=== PATIENT | female | born 1935 | race Caucasian/White ===

== ENCOUNTER → 2017-06-19 11:00 | Outpatient (CLI) | payer MEDICARE, OTHER, SELFPAY ==
--- NOTE | 2017-06-19 11:04 | HPBI_ITS ---
MAMMOGRAPHY - BILATERAL SCREENING REASON FOR EXAM: Female, 81 years old. Routine annual screening examination. PERTINENT HISTORY: Non-contributory. History of lung cancer. TECHNIQUE: Digital bilateral breast patti (3D mammographic acquisition) in the CC and MLO projections. 2-D mediolateral oblique (MLO) and craniocaudad (CC) views of both breasts were obtained. CAD: Full Field Digital Mammography with Computer Added Detection was performed. COMPARISON: Comparison is made with prior study dated October 10, 2016 and April 21, 2015. FINDINGS: Breast Composition: The breasts are almost entirely fatty. There are no dominant masses or suspicious calcifications. There is a stable 4.6 mm x 5.3 mm well-defined nodular density in the central lateral portion of the left breast. A central fatty notch is seen within it suggestive of a small lymph node. No other significant abnormalities are identified. There has been no significant change since the prior study. HPBI/SCREENING MAMM (CAD), BILAT IMPRESSION: Stable bilateral screening mammogram. Yearly follow-up mammogram recommended. (A) ASSESSMENT CATEGORY: BIRADS Category 2: Benign. A letter regarding these results will be sent to the patient by the facility within 30 days. Approximately 10% of breast cancers are not detected by mammography. A normal mammogram should not delay biopsy of a clinically suspicious abnormality. [id number] Electronically Signed: Blaine Victor MD at 13:11 EST Tel [phone], Service support ,
== END ==
PROVIDERS: Family Provider Internal Medicine; PCP Internal Medicine; Visit Provider Internal Medicine
DX: Z12.31 Encounter for screening mammogram for malignant neoplasm of breast (principal)
CPT/HCPCS: 77063; 77067

== ENCOUNTER → 2017-11-16 12:14 | Outpatient (CLI) | payer MEDICARE, OTHER, SELFPAY ==
--- NOTE | 2017-11-16 13:00 | MRI_ITS ---
STUDY: MRI LOWER EXTREMITY RIGHT THIGH WITH AND WITHOUT CONTRAST REASON FOR EXAM: Female, 82 years old. UPPER ANTERIOR LATERAL LEG MASS, AREA TOP AND BOTTOM...MARKED BY BEADS TECHNIQUE: Standardized fat and water weighted pulse sequences were obtained in all 3 orthogonal planes, post contrast administration. 8 ml of Gadavist contrast material was administered intravenously for the contrast portion of the examination. COMPARISON: None. FINDINGS: There is motion artifact. Markers were placed at the lateral hip and anterior upper thigh. No abnormality is seen between the markers. There is joint space narrowing of the right hip joint consistent with osteoarthritis. There is a 4.4 cm well-circumscribed structure in the distal right femoral shaft which demonstrates STIR hypointensity and no definite enhancement. It may represent red marrow. No greater trochanteric or iliopsoas bursitis is seen. The visualized gluteus medius and minimus, iliopsoas and hamstring tendons are intact. No muscle edema or enhancement is seen. No mass or fluid collection is seen. No soft tissue edema is seen. There is colonic diverticulosis. MRI/Lower Ext No Joint W/WO Cont IMPRESSION: No mass is demonstrated. No abnormality is seen between the markers. 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 There is a benign-appearing structure in the distal right femoral shaft. Electronically Signed: Winter Pérez MD at 14:58 EDT , Service support ,
--- NOTE | 2017-11-16 14:00 | CDU_ITS ---
Reason For Study: CAROTID STENOSIS Rt. Velocities/BP Lt. Velocities/BP Prox CCA 79/16 cm/sec. Prox CCA 76/18 cm/sec. Mid CCA 64/16 cm/sec. Mid CCA 70/22 cm/sec. Dist CCA 53/18 cm/sec. Dist CCA 72/21 cm/sec. Prox ICA 73/28 cm/sec. Prox ICA 57/24 cm/sec. Mid ICA 74/26 cm/sec. Mid ICA 82/29 cm/sec. Dist ICA 84/36 cm/sec. Dist ICA 77/27 cm/sec. Rt. ICA/CCA = 1.3. Lt. ICA/CCA = 1.2. Prox ECA 61/11 cm/sec. Prox ECA 79/12 cm/sec. Rt. Vert. 36/8 cm/sec. Lt. Vert. 47/14 cm/sec. Right Extracranial There is intimal thickening but no significant atherosclerotic plaque noted in the right common carotid artery. There is heterogeneous, irregular atherosclerotic plaque noted in the right internal carotid artery. There is heterogeneous, irregular atherosclerotic plaque noted in the right external carotid artery. Antegrade flow is noted in the right vertebral artery. Left Extracranial There is intimal thickening but no significant atherosclerotic plaque noted in the left common carotid artery. The left internal carotid artery is not well visualized. There is heterogeneous, irregular atherosclerotic plaque noted in the left external carotid artery. Antegrade flow is noted in the left vertebral artery. Procedure Carotid Duplex [id number]. Exam performed in department. Interpretation Summary Mild (<50%) stenosis right extracranial internal carotid. Mild (<50%) stenosis left extracranial internal carotid. Flow within the vertebral arteries is antegrade bilaterally. Ordering Physician: Meli Gómez Referring Physician: Meli Gómez Performed By: Judi Portillo, RDCS, RVT
== END ==
PROVIDERS: Family Provider Internal Medicine; PCP Internal Medicine; Visit Provider Internal Medicine
DX: R22.41 Localized swelling, mass and lump, right lower limb (principal); I65.23 Occlusion and stenosis of bilateral carotid arteries
CPT/HCPCS: 73720; 93880; A9585

== ENCOUNTER 2018-03-13 09:14 | Emergency (ER) | payer MEDICARE, OTHER, SELFPAY ==
[2018-03-13 09:15] VITALS: BP 161/111; PULSE 71; RESP 18; TEMP 36.9; O2SAT 93; BMI 29.8
--- NOTE | 2018-03-13 09:34 | CT_ITS ---
STUDY: CT CERVICAL SPINE WITHOUT CONTRAST REASON FOR EXAM: Female, 82 years old. Head trauma due to a fall. RADIATION DOSAGE (If Supplied By Facility): CTDIvol = ( 25.57 ) mGy, DLP = ( 576.30 ) mGycm TECHNIQUE: High resolution transaxial imaging was performed without contrast material. Sagittal and coronal images were reconstructed. Individualized dose optimization techniques were used for this CT. COMPARISON: None FINDINGS: Scalp hematoma overlying the right posterior parietal occipital bone. Normal craniovertebral junction. There are degenerative changes of the anterior atlantoaxial articulation. Normal odontoid process. There is straightening of the normal cervical lordosis. Normal vertebral bodies and posterior osseous elements. C2-3: Minimal anterior listhesis of C2 on C3. Facet joint osteoarthritis and hypertrophy with bilateral neural foraminal stenosis. C3-4: Minimal anterior listhesis of C3 on C4. Facet joint osteoarthritis and hypertrophy with uncovertebral arthrosis. Bilateral neural foraminal stenosis worse on the left side. C4-5: Moderate degree of disc space narrowing. Anterior spondylosis. Uncovertebral arthrosis. Bilateral neural foraminal stenosis moderate degree worse on the left side. C5-6: Marked degree of disc space narrowing. Spondylosis. Uncovertebral arthrosis. Moderate degree of bilateral neural foraminal stenosis. C6-7: Moderate degree of disc space narrowing. Spondylosis. Uncovertebral arthrosis. Bilateral neural foraminal stenosis. Atherosclerotic plaque formation of the carotid bifurcations. Scarring in the right lung apex. CT/Spine Cervical without Contras IMPRESSION: Multilevel degenerative changes, as described above. Electronically Signed: Blaine Victor MD at 10:19 EST Tel [phone], Service support ,
--- NOTE | 2018-03-13 09:34 | RAD_ITS ---
STUDY: X-RAY - LEFT SHOULDER REASON FOR EXAM: Female, 82 years old. Pain following a fall. TECHNIQUE: 2 view(s) of the shoulder. COMPARISON: None. FINDINGS: Normal glenohumeral articulation. Normal acromioclavicular joint. Normal acromion. Normal humeral head and visualized proximal humerus. The soft tissue structures are unremarkable. Normal visualized pulmonary apex. RAD/Shoulder min 2 Views IMPRESSION: Normal x-ray examination of the shoulder. Electronically Signed: Blaine Victor MD at 10:46 EST Tel [phone], Service support ,
--- NOTE | 2018-03-13 09:34 | CT_ITS ---
STUDY: CT BRAIN WITHOUT CONTRAST REASON FOR EXAM: Female, 82 years old. Head injury due to a fall. RADIATION DOSAGE (If Supplied By Facility): CTDIvol = ( 44.99 ) mGy, DLP = ( 779.24 ) mGycm TECHNIQUE: Transaxial CT imaging of the brain was performed without administration of intravenous contrast material. Individualized dose optimization techniques were used for this CT. COMPARISON: None. FINDINGS: Small sclerotic hematoma overlying the posterior left parietal occipital bones. Normal calvarium. There is mild cerebral atrophy with widening of the extra-axial spaces and ventricular dilatation. There are areas of decreased attenuation within the white matter tracts of the supratentorial brain, consistent with microvascular disease changes. 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 Normal basal ganglia and thalami. Normal brainstem. Normal cerebellum. There is no intracranial hemorrhage. There are no findings of an acute ischemic infarction. Atherosclerotic calcification of the vertebral arteries and cavernous portions of the internal carotid arteries bilaterally. Normal visualized paranasal sinuses. CT/Brain/Head without Contrast IMPRESSION: Chronic involutional changes of the brain. Scalp hematoma overlying the posterior right parietal occipital bones. Electronically Signed: Blaine Victor MD at 10:15 EST Tel [phone], Service support ,
[2018-03-13 10:29] VITALS: BP 172/72; PULSE 67; RESP 16; O2SAT 92
--- NOTE | 2018-03-13 11:53 | ED.DCSUM_ITS ---
- ER Visit Summary Date of Service: 03/13/18 Chief Complaint: [Fall and head injury] History of Present Illness: The patient is a 82 F [presents to the emergency department after sustaining a fall this morning. Patient states she went out to the mailbox and she slipped on the ice falling backwards and striking her head on the ground. Patient is not sure if she passed out but the neighbor who saw her fall apparently and noted that she may have been unconscious however by the time that he got to where she was awake. Patient was able to walk into the house. Patient's son brings her in for evaluation. Patient is not on any blood thinners. Patient does have a history of hypertension and COPD. Patient has a history of lung cancer and hypothyroidism as well as history of chronic renal failure. Patient does complain of some pain in her neck and states that initially her whole body felt numb and tingly initially. Patient also having some discomfort in her left shoulder.] Physical Examination: [HEENT-PERRLA, EOMI. Cranial nerves II through XII grossly intact. TMs clear. Mucous membranes moist. No adenopathy. Mild diffuse tenderness over the C-spine. He has a contusion to the posterior occiput with hematoma noted. There is contusion to the skin but no distinct laceration. No bony step-offs. Cardiovascular-regular rate and rhythm without murmur or ectopy Lungs-clear to auscultation, chest wall stable without crepitus or subcu emphysema Abdomen-normoactive bowel sounds, soft, nontender, no rebound or rigidity, no peritoneal signs. Extremities-intact ?4, normal range of motion, normal pulses, atraumatic]. Left shoulder-patient has some tenderness diffusely about the glenohumeral joint. There is no deformity. She is nervously intact distally. Test Results: [CT scan of the brain without contrast showed chronic involutional changes and a hematoma to the scalp. CT C-spine showed chronic changes however no fractures. X-rays of the left shoulder showed no fractures.] Emergency Department Course and Treatment: [Was given Adacel in the emergency department] Treatment Plan: [Patient had a wound to the scalp was cleansed] Disposition: [Discharged home stable condition] Impression: [Closed head injury Cervical strain Left shoulder strain] This note was generated with [employer]ation software. It may contain incorrect words, spelling, and punctuation that were not noted in review of the chart prior to signing ED Disposition - Plan for ED Patient: Chief Complaint: Fall Referrals: Meli Gómez DO [Primary Care Provider] -
--- NOTE | 2018-03-13 11:53 | ED.DEP ---
ED Disposition - Plan for ED Patient: Chief Complaint: Fall Instructions: ED Mechanical Fall, ED Head Injury Closed, ED Sprain Strain Neck, ED Contusion Upper Ext, ED Contusion Shoulder Prescriptions: Hydrocodone Bitart/Apap 5-325 [Carbon 5MG-325MG] 1 tab PO Q4H PRN PRN 2 Days #10 tab PRN Reason: Pain Referrals: Fast,Meli, DO [Primary Care Provider] - 3-5 Days
[2018-03-13 12:06] VITALS: BP 152/98; PULSE 82; RESP 16; O2SAT 91
--- OUTSIDE RECORDS SUMMARY | 2018-04-25 02:12 | XMS RPT_ITS | Continuity of Care Document ---
:1935 Author Organization [facility] Address [address] [facility] [facility] [address] [place] [address] Phone Care Team Providers Name Role Phone Meli Gómez DO Unavailable Jamie Cruz Unavailable Dr. Cesario Tavares Unavailable Ben Uriarte Unavailable Jesus Isabel Kelly Unavailable Francoise Regalado Unavailable Unavailable Alisson Espinal Unavailable Unavailable Izzy Meredith LPN Unavailable Unavailable BOBBY Perez Unavailable Unavailable Unavailable Unavailable Problems Name Dates Details Abnormal blood chemistry (R79.9, 790.6) Status: Active Abnormal blood chemistry (R79.9, 790.6) Status: Active Abnormal chest x-ray (R93.89, 793.2) Status: Active Abnormal urine (R82.90, 791.9) Status: Active Abortions/Miscarriages Comments: Status: Active Acquired hypothyroidism (E03.9, 244.9) Comments: chronic stable-continue present regimen Status: Active Actinic keratosis (L57.0, 702.0) Status: Active Actinic keratosis (Renamed from AK (actinic keratosis)) (L57.0, 702.0) Comments: freeze on left chest and right forearm 40 sec without difficulty Status: Active Aortic valve disorder (I35.9, 424.1) Comments: she not having escalating sx which we discussed get echo in spring Status: Active Arthritis (M19.90, 716.90) Status: Active Bilateral carotid artery stenosis (I65.23, 433.10) Comments: risk factor modification Status: Active bilateral cataract surgery 2009 Status: Active BMI 30.0-30.9,adult (Z68.30, V85.30) Status: Active BMI 30.0-30.9,adult (Z68.30, V85.30) Status: Active Chest pain on breathing (R07.1, 786.52) Status: Active Chronic obstructive pulmonary disease, unspecified COPD type (J44.9, 496) Comments: chronic stable-continue present regimen Status: Active Colon Polyp (K63.5, 211.3) Status: Active COPD with acute exacerbation (Renamed from Acute exacerbation of chronic obstructive airways disease) (J44.1, 491.21) Comments: improving Status: Active COPD with acute exacerbation (Renamed from Acute exacerbation of chronic obstructive airways disease) (J44.1, 491.21) Status: Active Cramps, extremity (R25.2, 729.82) Status: Active D-dimer, elevated (R79.89, 790.92) Status: Active Deliveries (Parity) Comments: 5 Status: Active Disorder of thyroid, unspecified (E07.9, 246.9) Status: Active Eczema (L30.9, 692.9) Comments: cortisone Status: Active Edema (R60.9, 782.3) Status: Active Encounter for annual general medical examination with abnormal findings in adult (Z00.01, V70.0) Status: Active Encounter for annual general medical examination with abnormal findings in adult (Z00.01, V70.0) Status: Active Encounter for Medicare annual wellness exam (Z00.00, V70.0) Status: Active Encounter for screening mammogram for breast cancer (Renamed from Encounter for screening mammogram for malignant neoplasm of breast) (Z12.31, V76.12) Comments: andry Status: Active Encounter for screening mammogram for breast cancer (Renamed from Encounter for screening mammogram for malignant neoplasm of breast) (Z12.31, V76.12) Status: Active Epistaxis (R04.0, 784.7) Comments: some irritaiton- nasal saline - if not better then she will see ent- aspirin qod Status: Active Fall with significant injury (W19.XXXA, E888.9) Status: Active Fatigue (R53.83, 780.79) Comments: we talked about her considering using the o2 that anthony said she need- certainly can play a role in her energy and has senior care heart and lung negative consequences Status: Active Former smoker (Z87.891, V15.82) Status: Active Gastroesophageal reflux disease without esophagitis (K21.9, 530.81) Comments: chronic stable-continue present regimen Status: Active History of total left knee replacement (Z96.652, V43.65) Status: Active Hypertension, benign (I10, 401.1) Status: Active Impaired Fasting Glucose (R73.01, 790.21) Comments: watch the carbs increase activity Status: Active Incisional infection (T81.4XXA, 998.59) Comments: better Status: Active Incisional infection, subsequent encounter (T81.4XXD, V58.89) Comments: better Status: Active irritated skin tags Status: Active Left arm pain (M79.602, 729.5) Status: Active Left shoulder pain (M25.512, 719.41) Comments: will get xray Status: Active Low back pain (M54.5, 724.2) Status: Active Lung nodule (R91.1, 793.11) Comments: has follwoup andry Status: Active Macular degeneration (H35.30, 362.50) Comments: seeing eye doc Status: Active Mass of soft tissue of right lower extremity (R22.41, 782.2) Comments: mri neg - saw ortho and pain gone- monitor Status: Active [facility] Status: Active [facility] Status: Active Mitral regurgitation (I34.0, 424.0) Status: Active Neck pain, acute (M54.2, 723.1) Comments: had ct of neck - bad djd/ddd is getting better may need pt we discusssed Status: Active Need for prophylactic vaccination and inoculation against influenza (Z23, V04.81) Status: Active Need for prophylactic vaccination and inoculation against influenza (Renamed from Need for immunization against influenza) (Z23, V04.81) Status: Active Need for prophylactic vaccination and inoculation against influenza (Renamed from Need for immunization against influenza) (Z23, V04.81) Status: Active Need for vaccination against Streptococcus pneumoniae (Z23, V03.82) Status: Active Neoplasm of uncertain behavior of skin (D48.5, 238.2) Comments: left thigh looks red based with scale conscern precancer vs squamous she said had lesion on chest looked llike this then went away so she wants to monitor couple weeks if not better needs to see dermsooner than later Status: Active Night sweats (R61, 780.8) Comments: improving Status: Active Nonsmoker (Z78.9, V49.89) Status: Active Nonsmoker (Z78.9, V49.89) Status: Active NYSTAGMUS NOS (379.50) Comments: hasnt had more Status: Active 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, 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) Comments: old on ct she is on aspirin- risk factor modificaiton Status: Active Osteoporosis (M81.0, 733.00) Status: Active Other fatigue (R53.83, 780.79) Comments: she sleeping ok she wake up rested but not been [id number] so she going to try to get back on track and see if helps Status: Active Other hyperlipidemia (E78.49, 272.4) Comments: she at the max dose she can tolerate Status: Active Pneumococcal vaccination given (Z23, V06.6) Status: Active Postmenopausal (Renamed from Postmenopausal status) (Z78.0, V49.81) Status: Active Pregnancies () Comments: 6 Status: Active Pre-operative examination (Z01.818, V72.84) Status: Active PVD (peripheral vascular disease) (I73.9, 443.9) Comments: do nadeem Status: Active screening Status: Active Shortness of breath (R06.02, 786.05) Comments: get ddimer Status: Active Sleep disorder (G47.9, 780.50) Status: Active SOB (shortness of breath) on exertion (R06.02, 786.05) 11-Jul-2011 Comments: improving Status: Active Unspecified Diagnosis Status: Active Unspecified hearing loss, unspecified ear (H91.90, 389.9) Status: Active Vaginal atrophy (N95.2, 627.3) Status: Active Vaginal discharge (N89.8, 623.5) Comments: has used monistat without relief, will try po antifungal Status: Active Vaginal discharge (N89.8, 623.5) Status: Active Well woman exam (Z01.419, V72.31) Status: Active Yeast infection (B37.9, 112.9) Status: Active Medications Name Dates Details ASPIRIN LOW DOSE, 81MG (Oral Tablet) for 0 days Refills: 0 Ordered:02-Mar-2009 Amanda Espinal Breo Ellipta 200-25 MCG/INH Inhalation Aerosol Powder Breath Activated 1 (one) Aero Pow Br Act Aero Pow Br Act daily for 90 days Quantity: 3 {Inhaler} Refills: 3 Ordered:26-Apr-2017 Fast DO Meli AFast DO, Meli A Start : 26-Apr-2017 Active CeleBREX 200 MG Oral Capsule 1 (one) Capsule daily for 90 days Quantity: 90 {Capsule} Refills: 3 Ordered:26-Apr-2017 DO Meli AFast DO, Meli A Start : 26-Apr-2017 Active CENTRUM SILVER (Oral Tablet) for 0 days Refills: 0 Ordered:02-Mar-2009 Amanda Espinal Cozaar 50 MG Oral Tablet 1 (one) Tablet q am and 1/2 tab in evening for 90 days Quantity: 180 {Tablet} Refills: 3 Ordered:26-Apr-2017 DO Meli AFast DO, Meli A Start : 26-Apr-2017 Active Comments:this is the correct dose DilTIAZem HCl ER Coated Beads 360 MG Oral Tablet Extended Release 24 Hour 1 (one) Tablet Tablet qd for 0 days Quantity: 90 {Tablet} Refills: 3 Ordered:26-Apr-2017 Fast DO, Meli AFast DO, Meli A Start : 26-Apr-2017 Active HydroCHLOROthiazide 25 MG Oral Tablet 1 Tablet QD for 90 days Quantity: 90 {Tablet} Refills: 3 Ordered:26-Apr-2017 Fast DO, Meli AFast DO, Meli A Start : 26-Apr-2017 Active Incruse Ellipta 62.5 MCG/INH Inhalation Aerosol Powder Breath Activated 1 (one) Aero Pow Br Act daily for 90 days Quantity: 3 {Inhaler} Refills: 3 Ordered:26-Apr-2017 Meli TREJOradha Meli A Start : 26-Apr-2017 Active Levothyroxine Sodium 112 MCG Oral Tablet 1 (one) Tablet daily for 90 days Quantity: 102 {Tablet} Refills: 3 Ordered:26-Apr-2017 Meli TREJOradha , Meli A Start : 26-Apr-2017 Active Comments:2 on monday Sterling 5-325 MG Oral Tablet 1 (one) Tablet q 6hours prn for 0 days Quantity: 28 {Tablet} Refills: 0 Ordered:16-Mar-2018 Meli TREJOradha Meli A Start : 16-Mar-2018 Active Omeprazole 20 MG Oral Capsule Delayed Release [address] QD for 90 days Quantity: 90 {Capsule} Refills: 3 Ordered:26-Apr-2017 Meli TREJOradha Meli A Start : 26-Apr-2017 Active Potassium Chloride Eulalia ER 20 MEQ Oral Tablet Extended Release 2 (two) Tablet ER bid for 90 days Quantity: 360 {Tablet} Refills: 3 Ordered:26-Apr-2017 Meli TREJOradha LOMELI Meli A Start : 26-Apr-2017 Active PredniSONE 10 MG Oral Tablet 1 (one) Tablet uad for 0 days Quantity: 18 {Tablet} Refills: 0 Ordered:16-Mar-2018 Francoise Regalado Start : 16-Mar-2018 Active Comments:3 pills x 3 days2 pills X 3 days 1 pill x 3 days with food in am PreserVision AREDS 2 Oral Capsule 1 cap bid Active ProAir HFA 108 (90 Base) MCG/ACT Inhalation Aerosol Solution 2 (two) Aerosol Soln qid, prn for 90 days Quantity: 3 {Box} Refills: 3 Ordered:26-Apr-2017 Meli TREJOradha Meli A Start : 26-Apr-2017 Active Rosuvastatin Calcium 5 MG Oral Tablet 1 (one) Tablet qd in evening for 0 days Quantity: 30 {Tablet} Refills: 3 Ordered:05-Dec-2017 Meli TREJOradha Meli A Start : 05-Dec-2017 Active Rosuvastatin Calcium 5 MG Oral Tablet 1 (one) Tablet qd in evening for 90 days Quantity: 90 {Tablet} Refills: 3 Ordered:05-Dec-2017 Meli LOMELI DO, Debra A Start : 05-Dec-2017 Active TraZODone HCl 50 MG Oral Tablet 1 1/2 -2 Tablet q hs for 90 days Quantity: 180 {Tablet} Refills: 3 Ordered:26-Apr-2017 Meli Gómez DO, DO, Debra A Start : 26-Apr-2017 Active CLARITIN-D 24 HOUR, 10-240MG (Oral Tablet Extended Release 24 Hour) 1 Tablet ER 24HR daily for 4 days Refills: 0 Ordered:25-Apr-2012 Ginnystephanie RAJINDERLilian Start : 08-Feb-2012 End : 12-Feb-2012 Inactive CORRECTOL, 5MG (Oral Tablet Delayed Release) for 0 days Refills: 0 Ordered:16-Sep-2011 Alisson Espinal End : 16-Sep-2011 Inactive Diflucan 150 MG Oral Tablet 1 (one) Tablet daily for 7 days Quantity: 7 {Tablet} Refills: 0 Ordered:04-Feb-2016 Meli Gómez DO, DO, Debra A Start : 04-Feb-2016 End : 11-Feb-2016 Inactive Eliquis 2.5 MG Oral Tablet 1 (one) Tablet daily for 30 days Quantity: 30 {Tablet} Refills: 0 Ordered:04-Dec-2015 Meli Gómez DO, DO, Debra A Start : 23-Oct-2015 End : 22-Nov-2015 Inactive Comments:Following surgery for 1 month HYDROCORTISONE VALERATE, 0.2% (External Cream) 1 (one) Cream Cream apply qd for 0 days Quantity: 60 {Gram} Refills: 1 Ordered:06-Aug-2014 Alisson Espinal Start : 31-Mar-2014 End : 06-Aug-2014 Inactive LEVAQUIN, 500MG (Oral Tablet) 1 Tablet qd for 0 days Quantity: 7 {Tablet} Refills: 0 Ordered:16-Sep-2011 Alisson Espinal Start : 22-Aug-2011 End : 16-Sep-2011 Inactive MIRALAX (Oral Powder) 1 scoop prn for 0 days Refills: 0 Ordered:22-Feb-2010 Alisson Espinal End : 22-Feb-2010 Inactive NEURONTIN, 100MG (Oral Capsule) 2 caps tid for 0 days Refills: 0 Ordered:22-Feb-2010 Alisson Espinal End : 22-Feb-2010 Inactive SENNA S, 8.6-50MG (Oral Tablet) 1 tab bid (8.6-50 MG) Inactive SIMVASTATIN, 10MG (Oral Tablet) 1 Tablet QD for 90 days Quantity: 90 {Tablet} Refills: 3 Ordered:05-Aug-2013 Candace Mahan LPN Start : 24-Jul-2013 End : 05-Aug-2013 Inactive SYMBICORT, 160-4.5MCG/ACT (Inhalation Aerosol) 2 (two) Aerosol bid for 0 days Quantity: 1 {Aerosol} Refills: 3 Ordered:01-Nov-2012 Izzy Meredith LPN Start : 24-Sep-2012 End : 01-Nov-2012 Inactive Terbinafine HCl 1 % External Cream 1 (one) Application bid for 21 days Quantity: 1 {Tube} Refills: 0 Ordered:03-Apr-2017 Robert CALVILLOLilian Start : 03-Apr-2017 End : 24-Apr-2017 Inactive TYLENOL ARTHRITIS PAIN, 650MG (Oral Tablet Extended Release) for 0 days Refills: 0 Ordered:16-Sep-2011 Alisson Espinal End : 16-Sep-2011 Inactive ZyrTEC Allergy 10 MG Oral Tablet 1 (one) Tablet qd prn for 30 days Quantity: 30 {Tablet} Refills: 0 Ordered:20-Jan-2016 Fast DO, Meli AFast DO, Meli A Start : 04-Dec-2015 End : 03-Jan-2016 Inactive ADVAIR DISKUS, 250-50MCG/DOSE (Inhalation Aerosol Powder Breath Activated) 1puff Misc BID for 90 days Quantity: 3 {Inhaler} Refills: 3 Ordered:19-Sep-2014 Alisson Espinal Start : 07-Oct-2013 End : 19-Sep-2014 Discontinued Comments:inhalers CHOLESTOFF COMPLETE, 300-100MG (Oral Capsule) 1 cap bid (300-100 MG) End : 07-Jun-2016 Discontinued DILTIAZEM CD, 240MG (PO Cap SR 24HR) 1 QD for 0 days Refills: 0 Ordered:11-Aug-2008 Alisson Espinal End : 21-Aug-2009 Discontinued Comments:This order discontinued per [employer]. DILTIAZEM HCL COATED BEADS, 360MG (Oral Capsule Extended Release 24 Hour) 1 (one) Capsule ER 24HR qd for 0 days Quantity: 90 {Capsule_ER_24HR} Refills: 3 Ordered:11-Aug-2008 Alisson Espinal Start : 11-Aug-2008 End : 21-Aug-2009 Discontinued Comments:This order discontinued per [employer]. DilTIAZem HCl ER Beads 360 MG Oral Capsule Extended Release 24 Hour 1 cap Capsule ER 24HR qd for 90 days Quantity: 90 {Capsule} Refills: 3 Ordered:22-Mar-2017 Rico LOMELIWagnera Lizzy LOMELI Meli A Start : 22-Mar-2017 End : 22-Mar-2017 Discontinued Dulera 100-5 MCG/ACT Inhalation Aerosol 2 (two) Aerosol Aerosol bid for 90 days Quantity: 3 {Inhaler} Refills: 3 Ordered:19-Apr-2016 Alisson Espinal Start : 27-Oct-2015 End : 19-Apr-2016 Discontinued EVISTA, 60MG (Oral Tablet) 1 Tablet QD for 0 days Quantity: 90 {Tablet} Refills: 3 Ordered:16-Mar-2011 Rico DOWagnera AFradha LOMELI Meli A Start : 16-Mar-2011 End : 16-Mar-2011 Discontinued FLONASE, 50MCG/ACT (Nasal Suspension) 2 (two) Puff(s) daily for 0 days Quantity: 1 {Suspension} Refills: 0 Ordered:12-Nov-2012 Rico LOMELIWagnera AFradha DO, Meli A Start : 12-Nov-2012 End : 12-Nov-2012 Discontinued Furosemide 20 MG Oral Tablet 1 (one) Tablet Tablet qd prn for 0 days Quantity: 10 {Tablet} Refills: 0 Ordered:22-Mar-2017 Alisson Espinal Start : 07-Sep-2016 End : 22-Mar-2017 Discontinued Comments:ten GLUCOSAMINE CHONDROITIN COMPLX (Oral Tablet) 1 tab qd for 0 days Refills: 0 Ordered:20-May-2015 Alisson Espinal End : 20-May-2015 Discontinued HYDROCODONE-ACETAMINOPHEN, 5-325MG (Oral Tablet) 1 -2 tabs q 6hrs, prn (5-325 MG) End : 21-Oct-2014 Discontinued KEFLEX, 500MG (Oral Capsule) 1 cap qid q83vgdk (500 MG) End : 21-Oct-2014 Discontinued LevoFLOXacin 500 MG Oral Tablet 1 (one) Tablet Tablet qd for 0 days Quantity: 10 {Tablet} Refills: 0 Ordered:07-Sep-2016 Alisson Espinal Start : 04-Dec-2015 End : 07-Sep-2016 Discontinued LINZESS, 145MCG (Oral Capsule) 1 cap Capsule qd for 90 days Quantity: 90 {Capsule} Refills: 3 Ordered:20-May-2015 Alisson Espinal Start : 01-Apr-2013 End : 20-May-2015 Discontinued LIPITOR, 10MG (Oral Tablet) 1 (one) Tablet Tablet daily for 30 days Quantity: 30 {Tablet} Refills: 0 Ordered:25-Nov-2014 Alisson Espinal Start : 24-Nov-2014 End : 25-Nov-2014 Discontinued Dispense as Written Comments:dimitrios LIPITOR, 10MG (Oral Tablet) 1 (one) Tablet Tablet daily for 0 days Quantity: 30 {Tablet} Refills: 6 Ordered:25-Nov-2014 Alisson Espinal Start : 24-Nov-2014 End : 25-Nov-2014 Discontinued Dispense as Written MetroNIDAZOLE 500 MG Oral Tablet 4 Tablet once for 0 days Quantity: 4 {Tablet} Refills: 0 Ordered:07-Sep-2016 Alisson Espinal Start : 02-Sep-2015 End : 07-Sep-2016 Discontinued PRAVASTATIN SODIUM, 10MG (Oral Tablet) 1 (one) Tablet Tablet daily for 90 days Quantity: 90 {Tablet} Refills: 3 Ordered:25-Nov-2014 Alisson Espinal Start : 16-May-2014 End : 25-Nov-2014 Discontinued Rosuvastatin Calcium 10 MG Oral Tablet 1 (one) Tablet Tablet qd for 0 days Quantity: 90 {Tablet} Refills: 3 Ordered:22-Mar-2017 Alisson Espinal Start : 07-Jun-2016 End : 22-Mar-2017 Discontinued Spiriva HandiHaler 18 MCG Inhalation Capsule 1 puff Capsule QD for 90 days Quantity: 90 {Capsule} Refills: 3 Ordered:07-Sep-2016 Alisson Espinal Start : 26-Feb-2016 End : 07-Sep-2016 Discontinued TRIAMCINOLONE ACETONIDE, 0.1% (External Cream) 1 Cream bid for 0 days Quantity: 1 {Cream} Refills: 0 Ordered:23-Jan-2012 Fast DO, Meli AFast DO, Meli A Start : 23-Jan-2012 End : 23-Jan-2012 Discontinued Allergies and Adverse Reactions Name Dates Details DANISH Inhibitors (Allergy) Status: Active Comments: cough Morphine Derivatives (Allergy) Status: Active Comments: behavior change No Known Drug Allergies (Allergy) Onset: 18-Mar-2013 Status: Active Past Medical History Name Dates Details Abdominal pain, acute, right upper quadrant (R10.11, 789.01) Status: Resolved as of 18-Mar-2013 Abnormal mammogram (R92.8, 793.80) Status: Resolved as of 27-Feb-2009 Acute bronchitis (J20.9, 466.0) Status: Resolved as of 21-Aug-2009 Allergic rhinitis (J30.9, 477.9) Status: Inactive as of 20-Oct-2017 BMI 29.0-29.9,adult (Z68.29, V85.25) Status: Inactive as of 20-Oct-2017 Cerumen impaction (H61.20, 380.4) Comments: rt Status: Resolved as of 07-May-2012 Chest pain (R07.9, 786.59) Status: Resolved as of 18-Sep-2011 clauidcation with left femoral bruit Status: Resolved as of 27-Feb-2009 Dizziness and giddiness (R42, 780.4) Status: Resolved as of 18-Sep-2011 Elevated LFTs (R94.5, 790.6) Status: Resolved as of 26-Nov-2010 Encounter for screening for malignant neoplasm of cervix (Z12.4, V76.2) Status: Inactive as of 18-Mar-2013 Eustachian tube dysfunction (H69.80, 381.81) Status: Resolved as of 07-May-2012 Herpes zoster with unspecified complications (053.8) Status: Resolved as of 21-Aug-2009 Hypokalemia (E87.6, 276.8) Status: Resolved as of 18-Sep-2011 Low back pain potentially associated with radiculopathy (M54.5, 724.2) Status: Inactive as of 20-Oct-2017 Need for prophylactic vaccination and inoculation against influenza (Z23, V04.81) Status: Inactive as of 07-May-2012 Neoplasm of uncertain behavior of skin (D48.5, 238.2) Status: Resolved as of 07-May-2012 Otalgia, unspecified ear (H92.09, 388.70) Status: Resolved as of 07-May-2012 Pneumonia due to other specified bacteria (J15.8, 482.89) Status: Resolved as of 18-Sep-2011 possible basal cell and irregular pigmented mole left shoulder Comments: resected by jesus rivera Status: Inactive as of 14-Dec-2008 renal bruit Status: Inactive as of 14-Dec-2008 screen Status: Inactive as of 26-Nov-2010 screening Status: Inactive as of 07-May-2012 screening Status: Inactive as of 28-Feb-2011 Skin lesion of back (L98.9, 709.9) Comments: ? fungal vs other will try antifungal Status: Inactive as of 20-Oct-2017 systolic murmur Status: Inactive as of 22-Feb-2010 Unspecified bacterial pneumonia (J15.9, 482.9) Status: Resolved as of 23-Jan-2012 Unspecified Diagnosis Status: Inactive as of 27-Feb-2009 Unspecified vertiginous syndromes and labyrinthine disorders (386.9) Status: Resolved as of 07-May-2012 Unspecified visual disturbance (H53.9, 368.9) Status: Inactive as of 22-Feb-2010 Vomiting (R11.10, 787.03) Status: Resolved as of 16-Mar-2011 Procedures Procedure Dates Details Cataract Removal, Insert Prosthetic Lens Completed Comments: bilateral Cholecystectomy Completed Comments: 2010-ercp- with bile duct stone- removed Colonoscopy Completed Comments: 2002 right lower lobectomy 2012 Completed Tonsillectomy Completed Comments: 24 yrs. Total Knee Replacement - Left Completed Comments: 2016 total knee replacement on right 2015- Completed Gesler Tubal Ligation Completed Comments: 42 yrs. Date Value Details 16-Mar-2018 CTA Chest W/WO Contrast Result: Comments: See Note; NOTES: [facility] Imaging Services [address] [place] [address] CTA Chest W/WO Contrast MR#: [id number] Acct: [id number] Name: AYAD BANUELOS Rep #: [id number] : 1935 F 82 From: Blaine Victor MD PCP: Meli Gómez DO Status: REG CLI Study: CTA Chest W/WO Contrast Date of Exam: 03/16/18 Exam# [id number] Ordering Dr: Fast,Meli DO STUDY: CTA C HEST REASON FOR EXAM: Female, 82 years old. Elevated d-dimer. History of lung cancer. RADIATION DOSAGE (If Supplied By Facility): CTDIvol = ( 19.57 ) mGy, DLP = ( 519.19 ) mGycm TECHNIQUE: The examin ation was performed with the intravenous administration of 100 ml of Isovue 370 contrast material. Post-processing of the angiographic images was performed, with multiplanar reformation and 3D reconstru ction. Individualized dose optimization techniques were used for this CT. COMPARISON: Comparison is made with prior study dated April 03, 2017. FINDINGS: Reba l enhancement of the main pulmonary artery and right and left pulmonary arteries. Normal enhancement of the bilateral peripheral pulmonary arteries. There is no demonstrated pulmonary embolism. There i s atherosclerotic calcification of the aortic arch with tortuosity. There is no demonstrated aortic dissection. There are calcifications of the coronary arteries. There are visualized mediastinal lym ph nodes, which are within normal size limits, and with normal morphology. Small left hilar lymph node. Normal visualized trachea and bronchi. The patient is status post partial right upper lobectomy. Stable elevation of the right hemidiaphragm. Emphysematous changes with bullous formation worse in the right upper lobe. Subpleural blebs are also seen in the lower lobes. There now is evidence of a 1. 2 cm x 0.8 cm x 0.9 cm spiculated nodule in the right upper lobe as seen on axial image #140 and coronal image #143. Normal pleura. Normal chest wall structures. There are degenerative changes of tho racic spine. There is a 2.3 cm x 3.1 cm cyst in the anterior aspect of the right kidney. CT/CTA Chest W/WO Contrast IMPRESSION: There is no evid ence of pulmonary embolism. Emphysematous changes worse in the upper lobes. 1.2 cm x 0.8 cm x 0.9 cm cystic nodule in the right upper lobe. Follow-up is recommended. Electronically Signed: Blaine castle MD at 12:44 EST Tel [phone], Service support , CC: Meli Gómez DO Pe Manager: Signed 16-Mar-2018 Humerus min 2 Views Result: Comments: See Note; NOTES: [facility] Imaging Services [address] [place] [address] Humerus min 2 Views MR#: [id number] Acct: [id number] Name: AYAD BANUELOS Rep #: [id number] : 1935 82 From: Blaine Victor MD PCP: Meli Gómez DO Status: REG CLI Study: Humerus min 2 Views Date of Exam: 03/16/18 Exam# [id number] Ordering Dr: Meli Gómez DO STUDY: X-RAY - LEFT HUMERUS REASON FOR EXAM: Female, 82 years old. Midposterior humerus pain following a fall. TECHNIQUE: 2 view(s) of the humerus. COMPARISON: None. FINDINGS: Normal visualized humerus. There is no demonstrated fracture or osseous destructive process. Degenerative changes at the level of the elbow joint. There is no demonstrated soft tissue abnormality. RAD/Humerus min 2 Views IMPRESSION: Normal x-ray examination of the humerus. Electronically Signed: Blaine Victor MD at 10:55 EST Tel [phone], Service support , CC: Meli Gómez DO Pe Manager: Signed 16-Mar-2018 Chest PA and Lateral Result: Comments: See Note; NOTES: [facility] Imaging Services [address] [place] [address] Chest PA and Lateral MR#: [id number] Acct: [id number] Name: AYAD BANUELOS Rep #: [id number] : 1935 F 82 From: Blaine Victor MD PCP: Meli Gómez DO Status: REG CLI Study: Chest PA and Lateral Date of Exam: 03/16/18 Exam# [id number] Ordering Dr: Meli Gómez DO STUDY: X-RAY CHEST REASON FOR EXAM: Female, 82 years old. Chest pain and shortness of breath. History of recent fall. TECHNIQUE: PA and lateral views of the chest. COMPARISON: Comparison is made with prior study dated December 04, 2015. FINDINGS: Stable pleural parenchymal changes at the right lung base suggestive of a right basilar scarring and pleural scarring. Stable mild degre e of increased linear markings in the right middle lobe. There is no demonstrated pleural abnormality. Normal size heart. Normal mediastinum and jolynn. Normal visualized pulmonary arteries. There is ath erosclerotic calcification of the aortic arch with tortuosity. There is demineralization of the osseous structures. Normal visualized ribs, clavicles, and shoulders. There is no demonstrated abnormali ty of the visualized soft tissue structures of the upper abdomen. RAD/Chest PA and Lateral IMPRESSION: Stable pleural parenchymal changes at the right lung base. Electronically Signed: Blaine Victor MD at 10:57 EST Tel [phone], Service support , CC: Meli Gómez DO Pe Manager: Signed 13-Mar-2018 Discharge Instruction Result: Comments: See Note; NOTES: [facility] Medical Records Department [address] [place] [address] Discharge Instruction 03/13/18 1153 MR#: [id number] Acct: [id number] Name: Julianne BANUELOS Rep #: [id number] : 1935 82 From: Jenna Faust DO PCP: Meli Gómez DO Status: REG ER ED Disposition - Plan for ED Patient: Chief Complaint: Fall Instructions: ED Mechanical Fall, ED H ead Injury Closed, ED Sprain Strain Neck, ED Contusion Upper Ext, ED Contusion Shoulder Prescriptions: Hydrocodone Bitart/Apap 5-325 [Sterling 5MG-325MG] 1 tab PO Q4H PRN PRN 2 Days #10 tab PRN Reason: Eileen n Referrals: Meli Gómez DO [Primary Care Provider] - 3-5 Days What to do if you have Problems For any increased pain, shortness of breath, bleeding, nausea or vomiting, chest pain, or any unexpecte d problems, contact your Primary Care Provider. Call [facility] ([phone]) or report to the closest Emergency Room. Call 911 if necessary. 03/13/18 1155 <Electronically signed by Yessenia Faust DO> Date Jenna Faust DO Cosigner Signature (If Indicated): Date CC: Meli Gómez DO 13-Mar-2018 Emergency Department Summary Result: Comments: See Note; NOTES: [facility] Medical Records Department [address] [place] [address] Emergency Department Summary 03/13/18 1150 MR#: [id number] Acct: [id number] Name: PUNEET BANUELOSIrving Guy Rep #: [id number] : 1935 82 From: Jenna Faust DO PCP: Meli Gómez DO Status: REG ER - ER Visit Summary Date of Service: 03/13/18 Chief Complaint: [Fall and head injury] Histo ry of Present Illness: The patient is a 82 F [presents to the emergency department after sustaining a fall this morning. Patient states she went out to the mailbox and she slipped on the ice falling rui kwards and striking her head on the ground. Patient is not sure if she passed out but the neighbor who saw her fall apparently and noted that she may have been unconscious however by the time that he go t to where she was awake. Patient was able to walk into the house. Patient's son brings her in for evaluation. Patient is not on any blood thinners. Patient does have a history of hypertension and COPD. Patient has a history of lung cancer and hypothyroidism as well as history of chronic renal failure. Patient does complain of some pain in her neck and states that initially her whole body felt numb an d tingly initially. Patient also having some discomfort in her left shoulder.] Physical Examination: [HEENT-PERRLA, EOMI. Cranial nerves II through XII grossly intact. TMs clear. Mucous membranes moist . No adenopathy. Mild diffuse tenderness over the C-spine. He has a contusion to the posterior occiput with hematoma noted. There is contusion to the skin but no distinct laceration. No bony step-offs. Cardiovascular-regular rate and rhythm without murmur or ectopy Lungs-clear to auscultation, chest wall stable without crepitus or subcu emphysema Abdomen- normoactive bowel sounds, soft, nontender, n o rebound or rigidity, no peritoneal signs. Extremities-intact 4, normal range of motion, normal pulses, atraumatic]. Left shoulder-patient has some tenderness diffusely about the glenohumeral joint. T here is no deformity. She is nervously intact distally. Test Results: [CT scan of the brain without contrast showed chronic involutional changes and a hematoma to the scalp. CT C-spine showed chronic c hanges however no fractures. X-rays of the left shoulder showed no fractures.] Emergency Department Course and Treatment: [Was given Adacel in the emergency department] Treatment Plan: [Patient had a wound to the scalp was cleansed] Disposition: [Discharged home stable condition] Impression: [Closed head injury Cervical strain Left shoulder strain] This note was generated with Elepago software. It may contain incorrect words, spelling, and punctuation that were not noted in review of the chart prior to signing ED Disposition - Plan for ED Patient: Chief Complaint: Fall Referrals : Fast,Meli, DO [Primary Care Provider] - What to do if you have Problems For any increased pain, shortness of breath, bleeding, nausea or vomiting, chest pain, or any unexpected problems, contact your Primary Care Provider. Call [facility] ([phone]) or report to the closest Emergency Room. Call 911 if necessary. 03/13/18 1153 <Electronically signed by Jenna Faust DO> Date Jenna Faust DO Cosigner Signature (If Indicated): Date CC: Meli Gómez DO 13-Mar-2018 Brain/Head without Contrast Result: Comments: See Note; NOTES: [facility] Imaging Services [address] [place] [address] Brain/Head without Contrast MR#: [id number] Acct: [id number] Name: AYAD BANUELOS Rep #: [id number] : 1935 F 82 From: Blaine Victor MD PCP: Meli Gómez DO Status: PRE ER Study: Brain/Head without Contrast Date of Exam: 03/13/18 Exam# [id number] Ordering Dr: Jenna Faust DO STUD Y: CT BRAIN WITHOUT CONTRAST REASON FOR EXAM: Female, 82 years old. Head injury due to a fall. RADIATION DOSAGE (If Supplied By Facility): CTDIvol = ( 44.99 ) mGy, DLP = ( 779.24 ) mGycm TECHNIQUE: T ransaxial CT imaging of the brain was performed without administration of intravenous contrast material. Individualized dose optimization techniques were used for this CT. COMPARISON: None. FINDINGS: Small sclerotic hematoma overlying the posterior left parietal occipital bones. Normal calvarium. There is mild cerebral atrophy with widening of the extra-axial sp aces and ventricular dilatation. There are areas of decreased attenuation within the white matter tracts of the supratentorial brain, consistent with microvascular disease changes. Small old lacunar inf arct in the insular cortex of the left insular cortex. Normal basal ganglia and thalami. Normal brainstem. Normal cerebellum. There is no intracranial hemorrhage. There are no findings of an acute isch emic infarction. Atherosclerotic calcification of the vertebral arteries and cavernous portions of the internal carotid arteries bilaterally. Normal visualized paranasal sinuses. CT/Brain/Head without Contrast IMPRESSION: Chronic involutional changes of the brain. Scalp hematoma overlying the posterior right parietal occipital bones. Electron ically Signed: Blaine Victor MD at 10:15 EST Tel [phone], Service support , CC: Meli Gómez DO; Jenna Faust DO Pe Manager: Signed 13-Mar-2018 Shoulder min 2 Views Result: Comments: See Note; NOTES: [facility] Imaging Services [address] [place] [address] Shoulder min 2 Views MR#: [id number] Acct: [id number] Name: AYAD BANUELOS Rep #: [id number] : 1935 F 82 From: Blaine Victor MD PCP: Meli Gómez DO Status: REG ER Study: Shoulder min 2 Views Date of Exam: 03/13/18 Exam# [id number] Ordering Dr: Jenna Faust DO STUDY: X-RAY - LEF T SHOULDER REASON FOR EXAM: Female, 82 years old. Pain following a fall. TECHNIQUE: 2 view(s) of the shoulder. COMPARISON: None. FINDINGS: Normal glenohumeral art iculation. Normal acromioclavicular joint. Normal acromion. Normal humeral head and visualized proximal humerus. The soft tissue structures are unremarkable. Normal visualized pulmonary apex. RAD/Shoulder min 2 Views IMPRESSION: Normal x-ray examination of the shoulder. Electronically Signed: Blaine Victor MD at 10:46 EST Cem alvarado [phone], Service support , CC: Meli Gómez DO; Jenna Faust DO Pe Manager: Signed 13-Mar-2018 Spine Cervical without Contras Result: Comments: See Note; NOTES: [facility] Imaging Services [address] [address] Spine Cervical without Contras MR#: [id number] Acct: [id number] Name: AYAD BANUELOS Rep #: [id number] : 1935 F 82 From: Blaine Victor MD PCP: Meli Gómez DO Status: PRE ER Study: Spine Cervical without Contras Date of Exam: 03/13/18 Exam# [id number] Ordering Dr: Jenna Faust DO STUDY: CT CERVICAL SPINE WITHOUT CONTRAST REASON FOR EXAM: Female, 82 years old. Head trauma due to a fall. RADIATION DOSAGE (If Supplied By Facility): CTDIvol = ( 25.57 ) mGy, DLP = ( 576.30 ) mGyc m TECHNIQUE: High resolution transaxial imaging was performed without contrast material. Sagittal and coronal images were reconstructed. Individualized dose optimization techniques were used for this CT. COMPARISON: None FINDINGS: Scalp hematoma overlying the right posterior parietal occipital bone. Normal craniovertebral junction. There are degenerative change s of the anterior atlantoaxial articulation. Normal odontoid process. There is straightening of the normal cervical lordosis. Normal vertebral bodies and posterior osseous elements. C2-3: Minimal ante rior listhesis of C2 on C3. Facet joint osteoarthritis and hypertrophy with bilateral neural foraminal stenosis. C3-4: Minimal anterior listhesis of C3 on C4. Facet joint osteoarthritis and hypertrophy with uncovertebral arthrosis. Bilateral neural foraminal stenosis worse on the left side. C4-5: Moderate degree of disc space narrowing. Anterior spondylosis. Uncovertebral arthrosis. Bilateral neural foraminal stenosis moderate degree worse on the left side. C5-6: Marked degree of disc space narrowing. Spondylosis. Uncovertebral arthrosis. Moderate degree of bilateral neural foraminal stenosis. C 6-7: Moderate degree of disc space narrowing. Spondylosis. Uncovertebral arthrosis. Bilateral neural foraminal stenosis. Atherosclerotic plaque formation of the carotid bifurcations. Scarring in the r ight lung apex. CT/Spine Cervical without Contras IMPRESSION: Multilevel degenerative changes, as described above. Electronically Signed: Marci Tilley MD at 10:19 EST Tel [phone], Service support , CC: Meli Gómez DO; Jenna Faust DO Pe Manager: Signed 16-Nov-2017 Carotid Duplex Ultrasound Result: Comments: See Note; NOTES: [facility] Cardiovascular Services [address] [place] [address] Carotid Duplex Ultrasound 11/16/17 1405 MR#: [id number] Acct: [id number] Name: AYAD AGUERO Rep #: [id number] : 1935 82 From: Rashawn Andujar MD Attending Dr: Meli Gómez DO Status: REG CLI Ordering Dr: Meli Gómez DO Date: 11/16/17 Location: MRI Sex: F C Admitted: Reaso n For Study: CAROTID STENOSIS Rt. Velocities/BP Lt. Velocities/BP Prox CCA 79/16 cm/sec. Prox CCA 76/18 cm/sec. Mid CCA 64/16 cm/sec. Mid CCA 70/22 cm/sec. Dist CCA 53/18 cm/sec. Dist CCA 72/21 cm/sec. Prox ICA 73/28 cm/sec. Prox ICA 57/24 cm/sec. Mid ICA 74/26 cm/sec. Mid ICA 82/29 cm/sec. Dist ICA 84/36 cm/sec. Dist ICA 77/27 cm/sec. Rt. ICA/CCA = 1.3. Lt. ICA/CCA = 1.2. Prox ECA 61/11 cm/sec. Prox ECA 79/12 cm/sec. Rt. Vert. 36/8 cm/sec. Lt. Vert. 47/14 cm/sec. Right Extracranial There is intimal thickening but no significant atherosclerotic plaque noted in the right common carotid artery. Ther e is heterogeneous, irregular atherosclerotic plaque noted in the right internal carotid artery. There is heterogeneous, irregular atherosclerotic plaque noted in the right external carotid artery. Ante grade flow is noted in the right vertebral artery. Left Extracranial There is intimal thickening but no significant atherosclerotic plaque noted in the left common carotid artery. The left internal car otid artery is not well visualized. There is heterogeneous, irregular atherosclerotic plaque noted in the left external carotid artery. Antegrade flow is noted in the left vertebral artery. Procedure C arotid Duplex 55963. Exam performed in department. Interpretation Summary Mild (<50%) stenosis right extracranial internal carotid. Mild (<50%) stenosis left extracranial internal carot id. Flow within the vertebral arteries is antegrade bilaterally. Ordering Physician: Meli Gómez Referring Physician: Meli Gómez Performed By: Judi Portillo, FLORECITA, RVT 11/16/171810 Date Rashawn Adnujar MD CC: Meli Gómez DO Date Dictated: 11/16/17 1405 Date Transcribed: 11/16/171810 Pe Manager: Signed 16-Nov-2017 Lower Ext No Joint W/WO Cont Result: Comments: See Note; NOTES: [facility] Imaging Services [address] [place] [address] Lower Ext No Joint W/WO Cont MR#: [id number] Acct: [id number] Name: AYAD BANUELOS Rep #: [id number] : 1935 F 82 From: Winter Pérez MD PCP: Meli Gómez DO Status: REG CLI Study: Lower Ext No Joint W/WO Cont Date of Exam: 11/16/17 Exam# [id number] Ordering Dr: Meli Gómez DO STUDY: MRI LOWER EXTREMITY RIGHT THIGH WITH AND WITHOUT CONTRAST REASON FOR EXAM: Female, 82 years old. UPPER ANTERIOR LATERAL LEG MASS, AREA TOP AND BOTTOM...MARKED BY BEADS TECHNIQUE: Standardized fat and sindhu er weighted pulse sequences were obtained in all 3 orthogonal planes, post contrast administration. 8 ml of Gadavist contrast material was administered intravenously for the contrast portion of the exam ination. COMPARISON: None. FINDINGS: There is motion artifact. Markers were placed at the lateral hip and anterior upper thigh. No abnormality is seen between the markers. There is joint space narrowing of the right hip joint consistent with osteoarthritis. There is a 4.4 cm well-circumscribed structure in the distal right femoral shaft which demonstrates STIR hy pointensity and no definite enhancement. It may represent red marrow. No greater trochanteric or iliopsoas bursitis is seen. The visualized gluteus medius and minimus, iliopsoas and hamstring tendons ar e intact. No muscle edema or enhancement is seen. No mass or fluid collection is seen. No soft tissue edema is seen. There is colonic diverticulosis. 0011 MRI/Lower Ext No Joint W/WO Cont IMPRESSION: No mass is demonstrated. No abnormality is seen between the markers. 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 There is a benign-appearing structure in the d istal right femoral shaft. Electronically Signed: Winter Pérez MD at 14:58 EDT , Service support , CC: Meli Gómez DO Pe Manager: Signed 05-Oct-2017 Downtime Report Result: Comments: See Note; NOTES: [facility] Medical Records Department [address] [place] [address] Downtime Report MR#: [id number] Acct: [id number] Name: AYAD BANUELOS Rep #: [id number] : 1935 82 From: Lit Escobar PCP: Meli Gómez DO Status: REG RCR This patient was seen during an EMR downtime September 18, 2017 - September 25, 2017. This patient may have a combination of pap er and electronic documentation or all paper documentation. All documentation is viewable within the e-chart portion of [employer] for each patient visit. 19-Jun-2017 SCREENING MAMM (CAD), BILAT Result: Comments: See Note; NOTES: [facility] Imaging Services [address] [place] [address] SCREENING MAMM (CAD), BILAT MR#: [id number] Acct: [id number] Name: AYAD BANUELOS Rep #: [id number] : 1935 F 81 From: Blaine Victor MD PCP: Meli Gómez DO Status: REG CLI Study: SCREENING MAMM (CAD), BILAT Date of Exam: 06/19/17 Exam# [id number] Ordering Dr: Meli Gómez DO [facility] MOGRAPHY - BILATERAL SCREENING REASON FOR EXAM: Female, 81 years old. Routine annual screening examination. PERTINENT HISTORY: Non-contributory. History of lung cancer. TECHNIQUE: Digital bilateral b reast patti (3D mammographic acquisition) in the CC and MLO projections. 2-D mediolateral oblique (MLO) and craniocaudad (CC) views of both breasts were obtained. CAD: Full Field Digital Mammography with Computer Added Detection was performed. COMPARISON: Comparison is made with prior study dated October 10, 2016 and April 21, 2015. FINDINGS: Breast Composition: The breasts are almost entirely fatty. There are no dominant masses or suspicious calcifications. There is a stable 4.6 mm x 5.3 mm well-defined nodular density in the central lateral portion of the left b reast. A central fatty notch is seen within it suggestive of a small lymph node. No other significant abnormalities are identified. There has been no significant change since the prior study. HPBI/SCREENING MAMM (CAD), BILAT IMPRESSION: Stable bilateral screening mammogram. Yearly follow-up mammogram recommended. (A) ASSESSMENT CATEGORY: BIRADS Category 2: Benign. A letter regarding these results will be sent to the patient by the facility within 30 days. Approximately 10% of breast cancers are not detec vaughn by mammography. A normal mammogram should not delay biopsy of a clinically suspicious abnormality. [id number] Electronically Signed: Blaine Victor MD at 13:11 EST Tel [phone], Serv ice support , CC: Meli Gómez DO Pe Manager: Signed 03-Apr-2017 Chest without Contrast Result: Comments: See Note; NOTES: [facility] Imaging Services [address] [place] [address] Chest without Contrast MR#: [id number] Acct: [id number] Name: AYAD BANUELOS Rep #: [id number] : 1935 F 81 From: Blaine Victor MD PCP: Meli Gómez DO Status: REG CLI Study: Chest without Contrast Date of Exam: 04/03/17 Exam# [id number] Ordering Dr: Jamie Cruz MD STUDY: CT CHEST WITHOUT CONTRAST REASON FOR EXAM: Female, 81 years old. History of lung cancer. Prior right lower lobectomy. RADIATION DOSAGE (If Supplied By Facility): CTDIvol = ( 12.00 ) mGy, DLP = ( 353.2 8 ) mGycm TECHNIQUE: Transaxial imaging was performed without the administration of intravenous contrast material. Multiplanar coronal and sagittal images were reformatted. Individualized dose optimiz ation techniques were used for this CT. COMPARISON: Comparison is made with prior examination dated April 01, 2016. FINDINGS: Stable elevation of the right hemid iaphragm due to prior right lower lobectomy. Surgical sutures are seen in the right lower hilum in keeping with prior lower lobectomy. Once again, there is evidence of diffuse emphysematous changes in both lungs worse in the right upper lobe with multiple bulla formation. There has been essentially no change since prior study. There is no demonstrated pleural abnormality. There are calcifications of the coronary arteries. There are multiple small lymph nodes within the mediastinum, which are normal in size and morphology most compatible with reactive lymph hyperplasia. Normal hilar regions. Reba l unenhanced pulmonary arteries. There is atherosclerotic calcification of the aortic arch. There is demineralization of the thoracic spine. Increased kyphosis. There is no demonstrated abnormality of the visualized upper abdomen. 0030 CT/Chest without Contrast IMPRESSION: Status post right lower lobectomy with resultant elevation of the right hemid iaphragm. Diffuse emphysematous changes worse in the right upper lobe. There has been essentially no change as compared to prior study. Electronically Signed: Blaine Victor MD at 10:03 EST Tel [phone], Service support , CC: Meli Gómez DO; Jamie Cruz MD Pe Manager: Signed 03-Jan-2017 Echocardiogram Complete Result: Comments: See Note; NOTES: [facility] Cardiovascular Services [address] [place] [address] Echo Complete 01/03/17 1059 MR#: [id number] Acct: [id number] Name: AYAD BANUELOS Rep #: [id number] : 1935 81 From: Luther Quintero MD Attending Dr: Meli Gómez DO Status: REG CLI Ordering Dr: Meli Gómez DO Date: 01/03/17 Location: BD Sex: F C Admitted: Reason For Study: Aortic Valve Disorder Procedure This was a 2D Doppler, Color Flow transthoracic echocardiogram. The exam was of adequate technical quality. Exam performed in department. Left Ventricle Normal LV size. Left ventricular systolic function is normal. The estimated ejection fraction is 65 %. No regional wall motion abnormalities noted. Right Ventricle Normal RV size. A moderator band is seen in the righ t ventricle. Normal systolic function. Atria Normal left atrium. Normal right atrium. No doppler evidence for ASD. Mitral Valve There is no mitral annular calcification. Normal mitral valve. Trivial m itral valve insufficiency. Tricuspid Valve Normal tricuspid valve. Mild tricuspid valve insufficiency. Right ventricular systolic pressure estimated to be 34 mmHg. Aortic Valve Trisinus/trileaflet aor tic valve. Moderate focal aortic valve calcification. Mild to moderate aortic stenosis. Pulmonic Valve The pulmonic valve is not well visualized. Great Vessels Normal sized aortic root. Calcified aorti c root. Pericardium/Pleural No pericardial effusion. MMode/2D Measurements AND Calculations LVIDd: 4.3 cm IVSd: 1.0 cm LVOT diam: 2.0 cm LVIDs: 3.1 cm LVPWd: 0.87 cm LVOT area: 3.2 cm2 RVDd: 2.9 cm FS : 27.9 % Ao root diam: 3.0 cm LAV(MOD-bp): 55.3 ml LA A4 area: 18.9 cm2 LA dimension: 4.1 cm LAV(MOD-bp) Indexed: 31.4 m l/m2 LAV(MOD-sp2): 46.7 ml LAV(MOD-sp4): 51.8 ml RA A4 area: 14.2 cm2 Doppler Measurements AND Calculations MV E max ve l: 55.7 cm/sec Lat Peak E' Kelton: 10.2 cm/sec Med Peak E' Kelton: 6.7 cm/sec MV A max kelton: 92.7 cm/sec E/E' lat: 5.4 E/E' med: 8.3 MV E/A: 0.60 Ao V2 max: 290.3 cm/sec LV V1 max: 106.1 cm/sec SV(LVOT): 71.8 ml Ao max P.8 mmHg LV V1 max P.5 mmHg Ao V2 mean: 189.5 cm/sec LV V1 mean P.1 mmHg Ao mean P.1 mmHg LV V1 mean: 67.9 cm/sec Ao V2 VTI: 60.2 cm LV V1 VTI: 22.5 cm SAMMY(I,D): 1.2 cm2 SAMMY(V,D): 1.2 cm2 PA V2 max: 120.8 cm/sec TR max kelton: 276.4 cm/sec TR max P.9 mmHg Interpretation Summary Left ventricular systolic function is normal. The estimated ejection fraction is 65 %. A moderator band is seen in the right ventric le. Trivial mitral valve insufficiency. Mild tricuspid valve insufficiency. Mild to moderate aortic stenosis. Calcified aortic root. Right ventricular systolic pressure estimated to be 34 mmHg. Ordering Physician: Meli Gómez Referring Physician: Emily Bravo Performed By: Laina Pendleton, FLORECITA, RVT 01/03/17 1503 Date Luther Quintero MD CC: Meli Gómez DO Date Dictated: 01/03 1059 Date Transcribed: 01/03/17 1503 Pe Manager: Signed 03-Jan-2017 Dexa Bone Density Study (HP) Result: Comments: See Note; NOTES: [facility] Imaging Services [address] [place] [address] Dexa Bone Density Study (HP) MR#: [id number] Acct: [id number] Name: AYAD BANUELOS Rep #: [id number] : 1935 F 81 From: Blaine Victor MD PCP: Meli Gómez DO Status: REG CLI Study: Dexa Bone Density Study (HP) Date of Exam: 01/03/17 Exam# [id number] Ordering Dr: Meli Gómez TUDY: DUAL ENERGY X-RAY ABSORPTIOMETRY / DXA REASON FOR EXAM: Female, 81 years old. Early menopause. Loss of height. TECHNIQUE: Bone Mineral Density (BMD) measurements of lumbar spine and bilateral hi ps were obtained. COMPARISON: Comparison is made with prior study dated November 27, 2014. FINDINGS: Lumbar Spine (L1-L4): g/cm2 (1.389) / T-score (1.6) / Z-score (3 .5) Findings are suggestive of normal bone density with a low fracture risk. Left Femur Total: g/cm2 (0.842) / T-score (-1.3) / Z-score (0.8) Left Femoral Neck: g/cm2 (0.775) / T-score (-1.9) / Z-score (0.4) Right Femur Total: g/cm2 (0.741) / T-score (-2.1) / Z-score (0.0) Right Femoral Neck: g/cm2 (0.709) / T-score (-2.4) / Z-score (-0.1) The T-Scores on the most recent prior examination were: Lum bar Spine (L1-L4): There has been improvement of bone density since the previous examination. Left Femur Total: which represents a worsening of 1.9%. Right Femur Total: which represents an improvement of 0.1%. HPBD/Dexa Bone Density Study (HP) IMPRESSION: The patient is considered osteopenic as outlined below according to World [employer] on (WHO) criteria with a moderate fracture risk. There has been improvement of bone density since the previous examination. Reference Information: The T-score is th e number of standard deviations above or below the standard which is normal for young adults at their peak bone mineral density. The World Health Organization (WHO) interprets the T-scores as follows: Above -1 Normal bone density Between -1 and -2.5 Osteopenia Equal to / or below -2.5 Osteoporosis As a practical clinical guideline, osteopenia may be graded as follows: Mild -1 through -1.5 Moderate - 1.6 through -2.0 Severe -2.1 through -2.4 The Z-score is the number of standard deviations above or below age-matched controls. A Z-score of less than -1.5 would be considered abnormal. References: 1. NIH Osteoporosis and Related Bone Diseases http://www.osteo.org 2. International Society for Clinical Densitometry http://www.iscd.org 3. National Osteoporosis Foundation http://www.nof.org Electronic ally Signed: Blaine Victor MD at 14:06 EDT Tel [phone], Service support , CC: Meli Gómez DO Pe Manager: Signed 07-Sep-2016 Lumbar Spine 2 or 3 Views Result: Comments: See Note; NOTES: [facility] Imaging Services [address] [address] Verdana 4d Lumbar Spine 2 or 3 Views MR#: [id number] Acct: [id number] Name: AYAD BANUELOS Rep #: [id number] : 1935 F 81 From: Reilly Donovan DO PCP: Meli Gómez DO Status: REG CLI Study: Lumbar Spine 2 or 3 Views Date of Exam: 09/07/16 Exam# [id number] Ordering Dr: Meli Gómez DO GIOVANY DY: X-RAY - LUMBAR SPINE REASON FOR EXAM: Female, 81 years old. Low back pain TECHNIQUE: 5 view(s) of the lumbar spine were obtained. COMPARISON: None FINDINGS: N ormal lumbar lordosis. There is no substantial scoliosis. There is a normal alignment of the vertebrae. There is multilevel endplate spondylosis of the lumbar vertebrae. There is multi-level degenerati ve disc disease with multi-level disc space narrowing. There is no demonstrated fracture. The soft tissue structures are unremarkable. RAD/Lumba r Spine 2 or 3 Views IMPRESSION: Degenerative changes of the spine, as detailed above. Electronically Signed: Reilly Donovan DO at 16:40 EDT Tel , Service support , CC: Meli Gómez DO Pe Manager: Signed 13-Jun-2016 Carotid Duplex Ultrasound Result: Comments: See Note; NOTES: [facility] Cardiovascular Services [address] [place] [address] Carotid Duplex Ultrasound 06/10/16 0855 MR#: [id number] Acct: [id number] Name: AYAD AGUERO Rep #: [id number] : 1935 80 From: Rashawn Andujar MD Attending Dr: Meli Gómez DO Status: REG CLI Ordering Dr: Meli Gómez DO Date: 06/10/16 Location: [facility] Sex: F C Admitted: Reaso n For Study: Carotid stenosis Rt. Velocities/BP Lt. Velocities/BP Prox CCA 95.0/18.8 cm/sec. Prox CCA 86.8/13.5 cm/sec. Mid CCA 62.7/15.8 cm/sec. Mid CCA 69.8/12.3 cm/sec. Dist CCA 62.1/17.6 cm/sec. Di st CCA 75.0/17.0 cm/sec. Prox ICA 57.5/16.0 cm/sec. Prox ICA 53.7/17.7 cm/sec. Mid ICA 64.3/17.5 cm/sec. Mid ICA 69.8/19.9 cm/sec. Dist ICA 58.7/14.7 cm/sec. Dist ICA 58.8/15.8 cm/sec. Rt. ICA/CCA = .94 . Lt. ICA/CCA = 1.0. Prox ECA 73.3/9.0 cm/sec. Prox ECA 80.0/12.9 cm/sec. Rt. Vert. 55.7/11.7 cm/sec. Lt. Vert. 46.3/12.9 cm/sec. Right Extracranial There is intimal thickening but no significant ather osclerotic plaque noted in the right common carotid artery. There is heterogeneous, irregular atherosclerotic plaque noted in the right internal carotid artery. There is intimal thickening but no signif icant atherosclerotic plaque noted in the right external carotid artery. Antegrade flow is noted in the right vertebral artery. Left Extracranial There is intimal thickening but no significant atherosc lerotic plaque noted in the left common carotid artery. There is heterogeneous, irregular atherosclerotic plaque noted in the left internal carotid artery. There is heterogeneous, irregular atherosclero tic plaque noted in the left external carotid artery. Antegrade flow is noted in the left vertebral artery. Procedure Carotid Duplex 37581. Exam performed in department. Interpretation Summary Mild (& amp;#60;50%) stenosis left extracranial internal carotid. Mild (<50%) stenosis right extracranial internal carotid. Flow within the vertebral arteries is antegrade bilaterally. Ordering Physician: Meli Gómez Performed By: Ada Pérez RVT 06/13/162219 Date Rashawn Andujar MD CC: Meli Gómez DO Date Dictated: 06/10/16 0855 Date Transcribed: 06/13/162219 Pe Manager: Signed 22-Apr-2016 SCREENING MAMM (CAD), BILAT Result: Comments: See Note; NOTES: [facility] Imaging Services [address] [place] [address] Verdana 4d SCREENING MAMM (CAD), BILAT MR#: [id number] Acct: [id number] Name: PUNEET BANUELOS Rep #: [id number] : 1935 F 80 From: Nikita Rogers DO PCP: Meli Gómez DO Status: REG CLI Study: SCREENING MAMM (CAD), BILAT Date of Exam: 04/22/16 Exam# [id number] Ordering Dr: Meli Gómez DO MAMMOGRAPHY - BILATERAL SCREENING REASON FOR EXAM: Female, 80 years old. Routine annual screening examination. PERTINENT HISTORY: Non-contributory. TECHNIQUE: Digital bilateral breast patti (3D mammo graphic acquisition) in the CC and MLO projections. 2-D mediolateral oblique (MLO) and craniocaudad (CC) views of both breasts were obtained. CAD: Full Field Digital Mammography with Computer Added Dete ction was performed. COMPARISON: April 21, 2015 and April 18, 2014. FINDINGS: Breast Composition: The breasts are almost entirely fatty. There are no new dominan t masses or suspicious calcifications. Stable focal calcifications in the upper outer quadrant of the right breast. Stable nodular density in the lateral left mid breast. No other significant abnormali ties are identified. HPBI/SCREENING MAMM (CAD), BILAT IMPRESSION: Stable bilateral screening mammogram. Yearly follow-up mammogram recommended. ( A) ASSESSMENT CATEGORY: BIRADS Category 2: Benign. A letter regarding these results will be sent to the patient by the facility within 30 days. Approximately 10% o f breast cancers are not detected by mammography. A normal mammogram should not delay biopsy of a clinically suspicious abnormality. [id number] Electronically Signed: Nikita Rogers DO at 14:[address] Tel [phone], Service support [phone], CC: Meli Gómez DO Pe Manager: Signed 01-Apr-2016 Chest without Contrast Result: Comments: See Note; NOTES: [facility] Imaging Services [address] [place] [address] Verdana 4d Chest without Contrast MR#: [id number] Acct: [id number] Name: AYAD BANUELOS ep #: [id number] : 1935 F 80 From: Blaine Victor MD PCP: Meli Gómez DO Status: REG CLI Study: Chest without Contrast Date of Exam: 04/01/16 Exam# [id number] Ordering Dr: Jamie Cruz STUDY: CT CHEST WITHOUT CONTRAST REASON FOR EXAM: Female, 80 years old. History of lung cancer in the right lower lobe. This is a follow-up examination. RADIATION DOSAGE (If Supplied By Facility): CTDIvol = ( 10.99 ) mGy, DLP = ( 334.59 ) mGycm TECHNIQUE: Transaxial imaging was performed without the administration of intravenous contrast material. Multiplanar coronal and sagittal images were re formatted. Individualized dose optimization techniques were used for this CT. COMPARISON: Comparison is made with prior study dated 06/02/2015. FINDINGS: There is elevation of the right hemidiaphragm. 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 The patient is status post right lower lobectomy. Marked degree of emphysematous c hanges and bullous formation in the right upper lobe. Emphysematous changes with small bulla are also seen in the left upper lobe. The previously seen infiltrate in the right upper lobe has cleared. The re is no demonstrated pleural abnormality. There are calcifications of the coronary arteries. There are multiple small lymph nodes within the mediastinum, which are normal in size and morphology most compatible with reactive lymph hyperplasia. Postoperative changes are seen in the right hilum. Normal unenhanced pulmonary arteries. There is atherosclerotic calcification of the aortic arch and descend ing thoracic aorta. There is demineralization of the thoracic spine. Increased kyphosis. There is no demonstrated abnormality of the visualized upper abdomen. ORD ER #: [id number] CT/Chest without Contrast IMPRESSION: Status post right lower lobectomy with elevation of the right hemidiaphragm. 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 The previously see n infiltration in the right upper lobe has resolved. Electronically Signed: Blaine Victor MD at 14:02 EST Tel [phone], Service support [phone], CC: Stacey Gómez DO; Jamie Cruz MD Pe Manager: Signed 04-Dec-2015 Chest PA and Lateral Result: Comments: See Note; NOTES: [facility] Imaging Services [address] [place] [address] Verdana 4d Chest PA and Lateral MR#: [id number] Acct: [id number] Name: AYAD BANUELOS p #: [id number] : 1935 F 80 From: Blaine Victor MD PCP: Meli Gómez DO Status: REG CLI Study: Chest PA and Lateral Date of Exam: 12/04/15 Exam# [id number] Ordering Dr: Meli Gómez DO STUD Y: X-RAY CHEST REASON FOR EXAM: Female, 80 years old. History of lung cancer. COPD. TECHNIQUE: PA and lateral views of the chest. COMPARISON: Comparison is made with prior examination dated October 13, 2015. FINDINGS: Stable pleural parenchymal changes at the right lung base most likely seen at the prior right and left lower lobectomy. The left lung is clear. Ther e is no demonstrated pleural abnormality. Normal size heart. Normal mediastinum and jolynn. Normal visualized pulmonary arteries. There is atherosclerotic tortuosity of the aortic arch and descending tho racic aorta. There are diffuse degenerative changes of the visualized thoracic spine. Normal visualized ribs, clavicles, and shoulders. There is no demonstrated abnormality of the visualized soft tiss ue structures of the upper abdomen. RAD/Chest PA and Lateral IMPRESSION: Pleural-parenchymal changes at the right lung base. This is unchanged. Electronically Signed: Blaine Victor MD at 11:18 EDT Tel [phone], Service support [phone], CC: Meli Gómez DO Pe Manager: Signed 13-Oct-2015 Chest PA and Lateral Result: Comments: See Note; NOTES: [facility] Imaging Services [address] [place] [address] Verdana 4d Chest PA and Lateral MR#: [id number] Acct: [id number] Name: AYAD BANUELOS Rep #: [id number] : 1935 F 80 From: Scott Richard MD PCP: Meli Gómez DO Status: REG CLI Study: Chest PA and Lateral Date of Exam: 10/13/15 Exam# [id number] Ordering Dr: Tessa Cruz MD STUDY: X-RAY CHEST REASON FOR EXAM: Female, 80 years old. Recent pneumonia. Pulmonary hypertension. History of right lung cancer with right lower lobe removed. Emphysema, shortness of breath, cough TECHNIQUE: PA and lateral views of the chest. COMPARISON: Chest x-ray from 02-04-16. FINDINGS: The patient is status post right partial pneumo nectomy. Previously noted infiltrate in the right lung is clear . Parenchymal scarring in the right base is noted There is no demonstrated pleural abnormality. Normal size heart. Normal mediastinum and jolynn. Normal visualized pulmonary arteries. Normal visualized aortic arch and descending thoracic aorta. Normal visualized thoracic spine. Normal visualized ribs, clavicles, and shoulders. Th ere is no demonstrated abnormality of the visualized soft tissue structures of the upper abdomen. 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 Status post right partial pneumonectomy. Electronically Signed: Scott Richard MD, FACR at 15:58 EDT Tel , Service support [phone], RAD/Chest PA and Lateral IMPRESSION: Previously noted right pulmonary infiltrate is clear. Status post right partial pneumon ectomy. Electronically Signed: Scott Richard MD, FACR at 15:58 EDT , Service support [phone], CC: Meli Gómez DO; Jamie Cruz MD Pe Manager: Signed 18-Sep-2015 History and Physical Exam Result: Comments: See Note; NOTES: [facility] Medical Records Department [address] [place] [address] History and Physical 09/17/15 1442 MR#: [id number] Acct: [id number] Name: AYAD BANUELOS Rep #: [id number] : 1935 80 From: Jarvis Loyola PA-C PCP: Meli Gómez DO Status: PRE IN Location: [facility] DATE OF SERVICE: This is Jarvis Loyola PA-C dictat ing a preoperative history and physical exam per Dr. Renny Wyman. PRIMARY CARE PHYSICIAN: Meli Gómez D.O. PROCEDURE TYPE: Left total knee arthroplasty. PROCEDURE DATE: September 29, 2015 ATTEND ING PHYSICIAN: Renny Wyman M.D. HISTORY OF PRESENT ILLNESS: This is an 80-year-old female, who has been a well-established patient of [facility]. The patient oconnell s had ongoing left knee pain since 2004. Pain is intermittent and sharp. The patient states she has increased pain with stairs, walking any amount of distance. Sitting, resting and elevation of the le g does help to alleviate some of her pain. The patient did undergo a previous right total knee replacement in July 2014. She is doing well from this surgery. The patient has had conservative treatme nt measures consisting of rest, ice, heat, elevation and cortisone injections and states these are temporarily helpful. The patient has had multiple cortisone injections approximately every 3 months. The patient states that these injections only lasting approximately 2 months. The patient has tried oral medications consisting of Celebrex daily for years, which is helpful. [facility] and has been performing home exercises. The patient denies previous surgery on the left knee. After failing conservative treatment measures and discussing all treatment options with Dr. Renny Wyman, the patient would like to proceed with a left total knee arthroplasty. The patient does have a medical history pertinent for hypertension, emphysema as well as previous lung ca ncer. The patient did undergo a right lower lobe lobectomy in 2011. The patient is followed by Dr. Cruz. She has obtained surgical clearance. The patient states cancer has been in remission. She is on 3 inhalers for her emphysema. She does have occasional shortness of breath. She denies any recent chest pain, fevers, or chills. The patient has had an echocardiogram done in May of 2015, wh ich did show her ejection fraction to be at 65%. She has obtained surgical clearance from Dr. Cruz as well as her primary care physician, Dr. Gómez. REVIEW OF SYSTEMS: I did discuss and reviewed w ith the patient all 10 review of systems. All pertinent positives and negatives are noted in the medical record. Please see [facility] medical history sheet. MEDIC AL PROBLEMS: 1. Hypertension. 2. Thyroid disease. 3. Emphysema, currently on inhalers. 4. Previous lung cancer with right lower lobe lobectomy. PAST SURGICAL HISTORY: 1. Tonsillectomy in 1959. 2 . Tubal ligation in 1977. 3. Gallbladder in 2010. 4. Right lung lower lobe lobectomy in October 2011. 5. Right total knee arthroplasty on July 22, 2014. ANESTHESIA COMPLICATIONS: None. ASSISTIVE DE VICES: The patient admits to glasses, dentures, and hearing aids. SOCIAL HISTORY: This is a 80-year-old female, currently retired. Former cigarette user. Occasional alcohol use. Denies any illicit drug use. CURRENT MEDICATIONS: 1. Aspirin 81 mg daily. 2. Celebrex 200 mg 1 p.o. daily. 3. Centrum Silver daily. 4. Diltiazem HCL ER 360 mg 1 p.o. daily. 5. Dulera 200-5 mcg 2 puffs p.o. b.i.d. 6. Hydrochlorothiazide 25 mg 1 p.o. daily. 7. K-Tab 40 mEq 2 tablets p.o. twice a day. 8. Levothyroxine 112 mcg daily. 9. Losartan potassium 50 mg 1 p.o. daily. 10. Omeprazole 20 mg 1 p.o. daily. 11. ProAir HFA 108 mcg per act q. 6 hours p.r.n. 12. Spiriva HandiHaler 18 mcg 2 puffs p.o. once daily. 13. Trazodone HCL 50 mg 1 p.o. at bedtime. 14. Zyrtec Allergy 10 mg 1 p.o. daily p.r.n. ALLERGIES: 1. MORPHINE. 2. SEASONAL. 3. TREES. PHYSICAL EXAMINATION: VITAL SIGNS: Height 61.5 inches, weight 167 pounds, BMI 31.0, blood pressure 124/84, pulse 68, respirations 18, and tempera ture 97.8. GENERAL: The patient is alert and oriented x3, in no acute distress, breathing easily without respiratory distress. HEENT: Head: Normocephalic and atraumatic. Eyes: Pupils equal, round, an d reactive to light and accommodation. Extraocular movements intact. Sclerae are anicteric. Conjunctivae without injection. Ears: Auditory acuity grossly intact bilaterally. Nose: Bilateral patent n fatimah without tenderness or drainage. Throat: Pharynx is clear without erythema or exudate. Tongue and uvula are midline. Buccal mucosa pink and moist. NECK: Supple without adenopathy, JVD, carotid bru it, masses or tenderness. CHEST: Symmetrical, nontender to palpation. HEART: Regular rate and rhythm without heaves, murmurs, rubs, or gallops. LUNGS: Clear to auscultation bilaterally. ABDOMEN: Sof t, nondistended, normoactive bowel sounds x4 without tenderness. NEUROLOGIC: Cranial nerves II through XII grossly intact without any focal or sensory deficits noted. EXTREMITIES/MUSCULOSKELETAL: Exa mination of the left knee reveals tenderness to palpation over the medial compartment as well as medial patellofemoral joint. The patient does walk with an antalgic gait. Sensation is intact to light touch. Range of motion is 0 degrees of extension to approximately 110 degrees of flexion. Neurovascularly intact. DIAGNOSTIC STUDIES: X-rays were obtained at [facility] on September 16, 2015, including 2 views, AP and lateral, reveals severe tricompartmental osteoarthritis of the left knee. The patient has nkeh-me-cnrz of the medial compartment. There are osteophytes of the femoral condyles as well as tibial plateaus. The patient does have spurring of the superior and inferior patella. IMPRESSION: 1. Severe tricompartmental left knee osteoarthritis. 2. Hypert ension. 3. Thyroid disease. 4. Emphysema. 5. Previous lung cancer with her right lower lobe lobectomy. PLAN: Dr. Renny Wyman did discuss and reviewed with the patient all treatment options includ ing surgical versus nonsurgical. At this time, the patient would like to proceed with a left total knee arthroplasty. Potential risks, benefits and complications of this procedure were reviewed in de tail including, but not limited to , infection, nerve and blood vessel damage, persistent pain, numbness, tingling, paresthesias, blood clot, pulmonary embolism and requirement for possible furth er surgery. The patient expressed full understanding, has no further questions for the doctor. The patient does agree to proceed with the above-stated procedure and signed the surgery consent form. Th e patient has undergone surgical clearance by Dr. Cruz as well as Dr. Góemz. Jarvis Loyola PA-C T: [facility] JOB: [id number] 09/18/15 0840 <Electronically signed by Jarvis Loyola PA-C> Date: Time: Jarvis Loyola PA-C CC: Meli Gómez DO; Jarvis ROBB Date Dictated: 09/17/151441 Date Transcribed: 06/02 Pe Manager: Signed ____ I have re-examined the patient. There are no clinical changes since date of exam. ____ See Progress Notes for Changes ____ Dictated on Admission Da te: Time: Signature: -May-2015 Echocardiogram Complete Result: Comments: See Note; NOTES: [facility] Cardiovascular Services [address] [place] [address] Echo Complete 05/25/15 1414 MR#: [id number] Acct: [id number] Name: AYAD MENON Rep #: [id number] : 1935 79 From: Reece Rae MD Attending Dr: Meli Gómez DO Status: REG CLI Ordering Dr: Meli Gómez DO Date: 05/25/15 Location: [facility] Sex: F C Admitted: P rocedure This was a 2D Doppler, Color Flow transthoracic echocardiogram. Exam performed in department. Left Ventricle Normal LV size. Left ventricular systolic function is normal. The estimated ejec tion fraction is 65 %. No regional wall motion abnormalities noted. Right Ventricle Normal RV size. Normal systolic function. Atria Normal left atrium. Normal right atrium. Mitral Valve Reba l mitral valve. Tricuspid Valve Normal tricuspid valve. Mild to moderate (1- 2+) tricuspid valve insufficiency. Pulmonary artery systolic pressure is 44 mmHg. Aortic Valve Trisinus/trileaflet aor tic valve. Peak aortic valve gradient 49 mmHg. Mean aortic valve gradient 20 mmHg. Mild aortic stenosis. Calculated aortic valve area (continuity equation) is 1.9CM Pulmonic Valve Normal pulmonic va lve. Great Vessels Normal aortic root. The pulmonary artery is normal size. Normal inferior vena cava. Pericardium/Pleural No pericardial effusion. MMode/2D Measurements AND Calculations LVIDd: 4.3 cm IVSd: 0.82 cm LVOT diam: 2.2 cm Ao root diam: 2.9 cm LVIDs: 2.9 cm LVPWd: 0.69 cm LVOT area: 3.7 cm2 Ao root area: 6.7 cm2 RVDd: 3.3 cm FS: 32.1 % LA dimension: 4.4 cm LAV(MOD-bp): 55.9 ml LVAd ap4: 29.0 cm2 SV(MOD-sp4): 47.8 ml SV(sp4-el): 52.1 ml LAV(MOD-bp) Indexed: 32.1 ml/m2 LVLd ap4: 7.9 cm LAV(MOD -sp2): 51.2 ml EDV(MOD-sp4): 85.9 ml LAV(MOD-sp4): 57.3 ml EDV(sp4-el): 90.0 ml LVAs ap4: 17.9 cm2 LVLs ap4: 7.2 cm ESV(MOD-sp4): 38.2 ml ESV(sp4- el): 37.9 ml EF(MOD-sp4): 55.6 % EF(sp4-el ): 57.9 % LA A4 area: 19.2 cm2 RA A4 area: 12.6 cm2 Doppler Measurements AND Calculations MV E max kelton: Lat Peak E' Kelton: Med Peak E' Kelton: MV dec time: 0.19 sec 86.8 cm/sec 8.2 cm/sec 8.3 cm/sec MV A max kelton: 94.2 cm/sec MV E/A: 0.92 Ao V2 max: 335.7 cm/sec LV V1 max: 169.6 cm/sec SV(LVOT): 110.1 ml PA V2 max: 179.8 cm/sec Ao max P.1 mmHg LV V1 max P.5 mmHg PA max P.9 mmHg Ao V2 mean: 209.0 cm/secLV V1 cooper n P.6 mmHg PA V2 mean: Ao mean P.1 mmHg LV V1 mean: 99.9 cm/sec 110.9 cm/sec Ao V2 VTI: 66.5 cm LV V1 VTI: 29.5 cm PA mean P.7 mmHg SAMMY(I,D): 1.7 cm2 PA V2 VTI: 34.4 cm SAMMY(V,D): 1.9 cm2 TR max kelton: 312.7 cm/secE/E' lat: 10.5 E/E' med: 10.5 TR max P.1 mmHg Interpretation Summary Normal LV size. Left ventricular systolic function is normal. The estimated ejection fraction is 65 %. Mild to moderate (1-2+) tricuspid valve insufficiency. Pulmonary artery systolic pressure is 44 mmHg. M ild aortic stenosis. Calculated aortic valve area (continuity equation) is 1.9CM Ordering Physi jennifer: Meli Gómez Referring Physician: Meli Gómez D.O. Performed By: Nelda Alanis [facility] 05/25/15 1607 Date ____ Reece Rae MD CC: Meli Gómez DO Date Dictated: 05/25/15 1414 Date Transcribed: 05/25/151606 Pe Manager: Signed 20-May-2015 ELECTROCARDIOGRAM, COMPLETE (ECG) ([id number]) Comments: ekg showed normal sinus rhythym, normal axis, no acute st/t wave changes Result: [MEASUREMENTS ANALYSIS] Date of Test: 05/20/2015 12:44:57; Heart Rate: 60; CO Interval: 158; QRS: 102; QT Interval: 422; Corrected QT Interval (QTc): 422; P Wave Albers: 37; QRS Wave Albers: 38; T Wave Albers : 37; Blood Pressure: 120/66 [ECG DIAGNOSTIC STATEMENTS] Date of Test: 05/20/2015 12:44:57; Summary: Sinus Rhythm WITHIN NORMAL LIMITS 01-May-2015 Carotid Duplex Ultrasound Result: Comments: See Note; NOTES: [facility] Cardiovascular Services [address] [place] [address] Carotid Duplex Ultrasound 04/28/15 1358 MR#: [id number] Acct: [id number] Name: AYAD BANUELOS Rep #: [id number] : 1935 79 From: Rashawn Andujar MD Attending Dr: Jamie Cruz MD Status: REG CLI Ordering Dr: Meli Gómez DO Date: 04/28/15 Location: CT Sex: F C Admitted: Rt. Velocities/BP Lt. Velocities/BP Prox CCA 119.0/14.1 cm/sec. Prox CCA 111.0/14.1 cm/sec. Mid CCA 99.0/14.1 cm/sec. Mid CCA 86.8/15.8 cm/sec. Dist CCA 69.8/14.7 cm/sec. Dist CCA 83 .3/12.3 cm/sec. Prox ICA 50.4/14.7 cm/sec. Prox ICA 41.2/12.6 cm/sec. Mid ICA 88.5/27.0 cm/sec. Mid ICA 62.5/16.1 cm/sec. Dist ICA 87.7/25.4 cm/sec. Dist ICA 87.9/27.0 cm/sec. Rt. ICA/CCA = 0.89. Lt . ICA/CCA = 1.0. Prox ECA 75.6/11.1 cm/sec. Prox ECA 111.0/12.3 cm/sec. Rt. Vert. 45.6/11.4 cm/sec. Lt. Vert. 47.5/11.4 cm/sec. Right Extracranial There is intimal thickening but no significant ath erosclerotic plaque noted in the right common carotid artery. There is homogeneous, smooth atherosclerotic plaque noted in the right internal carotid artery. There is intimal thickening but no signi ficant atherosclerotic plaque noted in the right external carotid artery. Antegrade flow is noted in the right vertebral artery. Left Extracranial There is homogeneous, smooth atherosclerotic plaque noted in the left common carotid artery. There is homogeneous, smooth atherosclerotic plaque noted in the left internal carotid artery. There is homogeneous, smooth atherosclerotic plaque noted in t he left external carotid artery. Antegrade flow is noted in the left vertebral artery. There is homogeneous, smooth atherosclerotic plaque noted in the left bulb. Procedure Carotid Duplex [id number]. The exam was diagnostic. Exam performed in department. Interpretation Summary Mild (<50%) stenosis right extracranial internal carotid. Mild (<50%) stenosis left extracranial internal audit senior manager al carotid. Flow within the vertebral arteries is antegrade bilaterally. Ordering Physician: Meli Vaughan Performed By: Laina Pendleton, FLORECITA, RVT 05/01/15 1007 Date Rashawn Andujar MD CC: Meli Gómez DO Date Dictated: 04/28/15 1358 Date Transcribed: 05/01/15 1007 Pe Manager: Signed 28-Apr-2015 Chest without Contrast Result: Comments: See Note; NOTES: [facility] Imaging Services [address] [place] [address] Verdana 4d Chest without Contrast MR#: [id number] Acct: [id number] Name: AYAD AGUERO Rep #: [id number] : 1935 F 79 From: Blaine Victor MD PCP: Meli Gómez DO Status: REG CLI Study: Chest without Contrast Date of Exam: 04/28/15 Exam# [id number] Ordering Dr: Jamie Vigil MD STUDY: CT CHEST WITHOUT CONTRAST REASON FOR EXAM: Female, 79 years old. The patient has a history of a lung cancer and prior right lower lobe resection. RADIATION DOSAGE (If Supplied By Facility): CTDIvol = ( 16.30 ) mGy, DLP = ( 614.13 ) mGycm TECHNIQUE: Transaxial imaging was performed without the administration of intravenous contrast material. Multiplanar coronal an d sagittal images were reformatted. COMPARISON: Comparison is made with prior study dated April 28, 2014. FINDINGS: Punctate calcification in the right lobe of the thyroid inferiorly. Once again, there is elevation of the right hemidiaphragm due to prior right lower lobectomy. Mild degree of emphysematous changes are seen with scarring in the upper lobe s worse on the left side. Bullous changes are more prominent in the right upper lobe. There is a stable 8.5 mm pleural-based nodule in the peripheral medial aspect of the right upper lobe. There is n o demonstrated pleural abnormality. There are calcifications of the coronary arteries. There are multiple small lymph nodes within the mediastinum, which are normal in size and morphology most comp atible with reactive lymph hyperplasia. Normal hilar regions. Normal unenhanced pulmonary arteries. There is atherosclerotic calcification of the aortic arch with tortuosity and elongation of the aor tic arch and descending thoracic aorta. There are multi-level degenerative changes of the thoracic spine. There is no demonstrated abnormality of the visualized upper abdomen. IMPRESSION: Stable examination with evidence of emphysematous changes and bullous formation and scarring. Stable elevation of the right hemidiaphragm. Electronically Signed: Marci Tilley MD at 9:45 EST Tel [phone], Service support [phone], CC: Meli Gómez DO; Jamie Cruz MD Pe Manager: Signed 21-Apr-2015 Bilat Scrn Digital AND CAD Result: Comments: See Note; NOTES: [facility] Imaging Services [address] [address] Verdana 4d Bilat Scrn Digital AND CAD MR#: [id number] Acct: [id number] Name: AYAD BANUELOS Rep #: [id number] : 1935 F 79 From: Blaine Victor MD PCP: Meli Gómez DO Status: REG CLI Study: Bilat Scrn Digital AND CAD Date of Exam: 04/21/15 Exam# [id number] Shalini lugo Dr: Meli Gómez DO MAMMOGRAPHY - BILATERAL SCREENING REASON FOR EXAM: Female, 79 years old. Routine annual screening examination. PERTINENT HISTORY: History of lung cancer. TECHNIQUE: Digit al examination. Mediolateral oblique (MLO) and craniocaudad (CC) views of both breasts were obtained. CAD: CAD was performed on this study. COMPARISON: Comparison is made with prior study dated 2014 and April 01, 2013. FINDINGS: Breast Composition: The breasts are almost entirely fatty. There are no dominant masses or suspicious calcificatio ns. There is a stable 5 mm well-defined nodule in the deep mid slightly lateral aspect of the left breast. This is unchanged. This may represent a small intramammary lymph node. No other significan t abnormalities are identified. There has been no significant change since the prior study. IMPRESSION: Stable bilateral screening mammogram. Yearly follow-up re commended. (A) ASSESSMENT CATEGORY: BIRADS Category 2: Benign. A letter regarding these results will be sent to the patient by the facility within 30 days. Ap proximately 10% of breast cancers are not detected by mammography. A normal mammogram should not delay biopsy of a clinically suspicious abnormality. [id number] Electronically Signed: Blaine rios MD at 10:09 EST Tel [phone], Service support [phone], CC: Meli Gómez DO Pe Manager: Signed 27-Nov-2014 Dexa Bone Density Study (HP) Result: Comments: See Note; NOTES: [facility] Imaging Services [address] [place] [id number] Bone Density Report MR#: [id number] Acct: [id number] Name: AYAD BANUELOS Rep #: [id number] : 1935 F 79 From: Blaine Victor MD PCP: Meli Góemz DO Status: REG CLI Study: Dexa Bone Density Study (HP) Date of Exam: 11/27/14 Exam# [id number] Ordering Dr: Meli Gómez DO STUDY: DUAL ENERGY X-RAY ABSORPTIOMETRY / DXA REASON FOR EXAM: Female, 79 years old. The patient is postmenopausal. Loss of height there TECHNIQUE: Bone Mineral Density (BMD) measurements of lum bar spine and bilateral hips were obtained. COMPARISON: Comparison is made with prior examination dated February 22, 2011. FINDINGS: Lumbar Spine (L1-L4): g/c m2 (0.865) / T-score (-2.5) / Z-score (-0.7) Findings are suggestive of osteopenia with a moderate fracture risk. Increased kyphosis. Left Femur Total: g/cm2 (0.858) / T-score (-1.2) / Z-score (0.8) Left Femoral Neck: g/cm2 (0.710) / T-score (-2.4) / Z-score (-0.2) Right Femur Total: g/cm2 (0.740) / T-score (-2.1) / Z-score (-0.1) Right Femoral Neck: g/cm2 (0.672) / T-score (-2.6) / Z-score (-0 .5) The T-Scores on the most recent prior examination were: Lumbar Spine (L1- L4): There has been improvement of bone density since the previous examination. Left Femur Total: which represents a w orsening of 0.2%. Right Femur Total: which represents a worsening of 3.4%. IMPRESSION: The patient is considered osteopenic as outlined below according to World Mandeep Organization (WHO) criteria with a moderate fracture risk. There has been worsening of bone density since the previous examination. Reference Information: The T-score is the number of standard deviations above or below the standard which is normal for young adults at their peak bone mineral density. The World Health Organization (WHO) interprets the T -scores as follows: Above -1 Normal bone density Between -1 and -2.5 Osteopenia Equal to / or below -2.5 Osteoporosis As a practical clinical guideline, osteopenia may be graded as follows: Mild -1 through -1.5 Moderate -1.6 through -2.0 Severe -2.1 through -2.4 The Z- score is the number of standard deviations above or below age-matched controls. A Z-score of less than -1.5 would be consi dered abnormal. References: 1. NIH Osteoporosis and Related Bone Diseases http://www.osteo.org 2. International Society for Clinical Densitometry http://www.iscd.org 3. National Osteoporosis Founda tion http://www.nof.org Electronically Signed: Blaine Victor MD at 13:39 EDT Tel [phone], Service support [phone], CC: Meli Gómez DO Pe Manager: Signed 16-Sep-2014 PT Discharge Summary Result: Comments: See Note; NOTES: [facility] Physical [facility] [address] [place] [address]. [address] [place], [place] [address] Fax REHABILITATION SERVICES DISCHARGE SUMMARY MR#: [id number] Acct: [id number] Name: AYAD BANUELOS Brooks Rep #: [id number] : 1935 79 From: Candace Chacon Referring : Meli Gómez DO Status: DIS RCR Eval Date: Dischar Date: 09/14/14 DATE OF SERVICE: 09/10/2014 This patient was referred to physical therapy by Annika Haywood, status post right total knee replacement. She reports that Dr. Wyman replaced her knee on July 22, 2014. She has been seen in our clinic times a total of 6 visits. Her physical therapy has mainly consisted of therapeutic exercise to improve her right knee range of motion and stren gth. The patient reports that she would like to be done with formal physical therapy appointments at this time due to being very busy until the middle of September. Upon examination, her right lower extre mity strength is as follows: Hip flexion 4+/5, knee extension 3-/5, knee flexion 4/5, ankle dorsiflexion 5/5. In supine with a heel slide, she has -3 degrees extension to 120 degrees flexion of the ri ght knee. The knee is warm to the touch, but there are no signs of increased redness, drainage or fever. There is mild edema of the right knee. She denies right lower extremity numbness or tingling. D ue to the fact that she possibly had an infection after surgery, I encouraged her to follow up with her doctor with any concerns of infection. Lower extremity functional score equals 59/80, U2953-VT and G1377-XX. I recommended that she continue independent gym exercises through [employer] and I am discharging her today at her request. Candace Chacon, PT T: NTS JOB: [id number] <El ectronically signed by Candace Chacon > 09/16/14 1524 CC: Signed 13-Aug-2014 Inital Evaluation - PT Result: Comments: See Note; NOTES: [facility] [address] [place] [address]. [address] [place] [address] Fax REHABILITATION SERVICES INITIAL EVALUATION MR#: [id number] Acct: [id number] Name: AYAD BANUELOS Rep #: [id number] : 1935 79 From: Candace Chacon Referring DrUnique: Emily Bravo Status: REG RCR Insurance: [employer] PPO Eval Date: DATE OF SERVICE: 08/12/2014 SUBJECTIVE: This patient was referred to physical therapy by Emily Bravo status post right total knee replacement, July 22, 2014. She ca me to start therapy last week; however, she had been seen in the Emergency Department and ____ diagnosed with a possible infection and when I spoke with [facility], they recommended holding physical therapy until she was seen by their office. She reports that she saw Emily Bravo on August 06, 2014 and was told to start physical therapy. She apparently had a superficial infection. She is on her 10th day of antibiotics today. She reports that she is intermittently using her cane, but feels like she can stop using it almost altogether. She denies pain and reports she really has n ot had pain for 5-7 days now. After her surgery, she went to [facility]'s tertiary care unit for about 1 week before being discharged home. She reports faithfully doing her home exer cise program. She lives alone in a 1 -story home with 2 steps and that she is not having difficulty with. 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 PAST MEDICAL HISTORY: Significant for high blood pressure, emphysem a, lung cancer 2 years ago, high cholesterol and hypothyroidism. She also has osteoarthritis in the left knee and has had cortisone injections in it. OBJECTIVE: This patient ambulates independent ly into physical therapy with a straight cane showing very little dependence on the cane and good balance with a very mild limp on the right lower extremity. She has moderate edema localized to the r ight knee. Her incision looks good and her Steri-Strips are starting to come off. In supine with a heel slide, her right knee range of motion equals -18 degrees extension to 95 degrees flexion, lef t knee -12 degrees extension to 105 degrees flexion. Strength: Right hip flexion 4/5 , knee extension 3-/5, knee flexion 4/5, ankle dorsiflexion 5/5; left hip flexion 4-/5 , knee extension 3-/5, knee flexion 3-/5, ankle dorsiflexion 4/5. TREATMENT: The patient was seen today for review of right lower extremity ankle pumps, quad sets, glut sets, heel slides, hip abduction, short arc quads, seat ed and standing heel-toe raises, standing hip flexion, hip abduction, foot extension, knee flexion and mini squats. She is unable to single leg stance without upper extremity support greater than 2-3 seconds on each leg. ASSESSMENT: This patient is an 79-year-old female status post right total knee replacement, July 22, 2014. GOALS: 1. Decrease right lower extremity edema. 2. Improve fu nctional range of motion of the right lower extremity. 3. Improve functional strength of the right lower extremity. 4. The patient will be independent and safe with gait on all surfaces with least a ssistive device. 5. The patient will be independent with a home exercise program for continued improvement once formal physical therapy concludes. PLAN: We plan to see this patient 2-3 times a wee k x4-6 weeks for right knee modalities as needed, range of motion/stretching/strengthening and independent exercise instruction along with gait/balance training to help meet the above goals. She was agreeable with this plan of care. Candace Chacon, PT T: NTS JOB: [id number] <Electronically signed by Candace Chacon > 08/13/14 1049 CC: Signed For Medicare only, by signing this I certify the plan of care. Physicians Signature Date 05-Aug-2014 Emergency Department Summary Result: Comments: See Note; NOTES: [facility] Medical Records Department [address] [place] [address] Emergency Department Summary MR#: [id number] Acct: [id number] Name: AYAD BANUELOS Rep #: [id number] : 1935 78 From: Renny John MD PCP: Meli Gómez DO Status: DEP ER DATE OF SERVICE: 08/02/2014 CHIEF COMPLAINT: Redness to my wound. The patient just had a right total knee replacement about a week and a half ago. She has had expected pain, is not getting worse. She was just in TCU, got out a few hours ago, did not notice any redness. Tonight, she noti luis f a little pink, redness and warmth in the right side of the incision. No fever, chills, nausea, vomiting. ____ significant pain or especially increased pain at rest. She says it is not suspicious for joint involvement. Temperature is 99.7. She said they have been following a low-grade temp since her surgery. She said this is not unchanged. No fever or chills. No pain with urination. She s aid the urine was checked. PHYSICAL EXAMINATION: GENERAL: The patient is sitting, smiling. HEENT: Normal. Membranes are dry. Her wound looks clean, incision vertical with multiples Steri-Strips wi thout drainage. She has just a very light pink from about ___ cm to most irregular along the right edge of the wound ___ the inferior aspect. No ascending lymphangitis. She has expected pain with mo vement, moderate with palpation. No fluctuance. The wound blanches. NEUROLOGIC: Alert and oriented x3. TREATMENT: The patient was advised that this may be just some inflammation, not unexpected , it could be a very early infection. She was started on Keflex 500 mg now, 4 times a day for 10 days. Follow up in the next couple of days with Dr. Wyman or return sooner for worse redness, pain, fe vers, especially pain at rest, red streaks, drainage, dehiscence, bleeding, chills. She is agreeable and stable with family, all voiced understanding. DIAGNOSIS: Acute early right knee postoperati ve cellulitis. MD Azam Mccabe C: Meli Durand MD T: [facility] JOB: [id number] 08/05/14 1003 <Electronically signed by Renny John MD> Date Renny John MD CC: Meli Gómez DO; Renny Wyman MD Date Dictated: 08/02/142300 Date Transcribed: 08/02/142300 Pe Manager: Signed 02-Aug-2014 Discharge Instruction Result: Comments: See Note; NOTES: [facility] Medical Records Department [address] [place] [address] Discharge Instruction 08/02/142250 MR#: [id number] Acct: [id number] Name: AYAD BANUELOS Rep #: [id number] : 1935 78 From: Renny John MD PCP: Meli Gómez DO Status: REG ER ED Disposition - Plan for ED Patient: Chief Complaint: Wound Check Instructions: ED Post Op Wound Check, Infection Prescriptions: Cephalexin [Keflex] 500 mg PO Q6 #40 capsule Referrals: Meli Gómez DO [Primary Care Provider] - Renny Wyman MD [STAFF PHYSICIAN] - 2 Days for wou nd check What to do if you have Problems For any increased pain, shortness of breath, bleeding, nausea or vomiting, chest pain, or any unexpected problems, contact your doctor. Call [facility] ( [phone]) or report to the closest Emergency Room. Call 911 if necessary. 08/02/14 9619 <Electronically signed by Renny John MD> Date Renny John MD Cosigner Signature (If Indicated): Date CC: Meli Gómez DO 15-Jul-2014 History and Physical Exam Result: Comments: See Note; NOTES: [facility] Medical Records Department [address] [place] [address] History and Physical 07/11/14 1431 MR#: [id number] Acct: [id number] Name: AYAD BANUELOS Rep #: [id number] : 1935 78 From: Emily Bravo PCP: Meli Gómez DO Status: PRE IN Location: [facility] DATE OF SERVICE: This is Emily Bravo PA-C dictating preoperative history and physical exam per Dr. Renny Wyman. PRIMARY CARE PROVIDER: Meli Gómez D.O. PROCEDURE TYPE: Right total knee arthroplasty. PROCEDURE DATE: July 22, 2014 ATTENDING PHYSICIAN: Janki Wyman M.D. HISTORY OF PRESENT ILLNESS: This is a 78-year-old female with a 60-plus year history of progressive worsening bilateral knee pain, more symptomatic on the right. She has been unde r orthopedic care for an extended period of time. Her knee pain has specifically gotten severely worse over the past 6 weeks. She has been having a hard time getting around. She occasionally uses a cane for stability and balance. She has pain throughout the entire knee. The pain is global, feels unstable as if it is going to give out on her. She has pain and worsening of her symptoms with sta irs and trying to walk any extended distance. She has difficulty maneuvering through the grocery store due to the distance walking. Elevating legs, sitting and resting does help alleviate her sympto ms at times. She still not having difficulty with activities of daily living such as bathing or showering, dressing or housework. She has not fallen. She used to climb ladders and wash her windows and she enjoyed doing this, but is unable anymore secondary to the progression of her osteoarthritis. She is unable to kneel anymore due to the pain. She has tried and failed conservative measures o f rest, ice, heat, and elevation. She has had approximately 10 or so cortisone injections that did not last as long as they used to in terms of pain relief. She has lost approximately 30 pounds over the past 3 years without any significant relief of her symptoms. She has had outpatient physical therapy in the past and did SilverSneakers for an extended period of time, but has had to stop second danyel to the right knee pain. She has tried compression and home exercises. She has not had any viscosupplementation. She has tried oral anti-inflammatory of Celebrex and Aleve. She has tried glucosa mine and chondroitin. She has not had any previous surgeries on this knee. She has not tried bracing or orthotics. X-rays are with progression of her osteoarthritis with near complete loss of joint space and medial translation of the femur on the tibia. After failing conservative measures and discussing all treatment options with Dr. Renny Wyman, the patient does wish to proceed with a right total knee arthroplasty. PAST MEDICAL HISTORY: Significant for: 1. Osteoarthritis. 2. Emphysema. 3. Thyroid disease. 4. Hypertension. 5. History of lung cancer. PAST SURGICAL HISTORY: 1. Ton sillectomy in 1959. 2. Tubal ligation in 1977. 3. Cholecystectomy in February 2011. 4. Right lung lobectomy in October 2011. SOCIAL HISTORY: The patient is retired since 1995. She is a former smoker. Admits to occasional alcohol use. Denies illicit drug use. Exercises 1-3 times per week. REVIEW OF SYSTEMS: Documented in the [facility] medical history sheet. ALLERGIES: MORPHINE, ALTHOUGH NOT A TR UE ALLERGY. SHE STATES THAT IT LOWERS HER INHIBITION AND SHE DOES NOT LIKE IT. CURRENT MEDICATIONS: Include: 1. Advair Diskus 250/50 b.i.d. 2. Aspirin 81 mg daily. 3. Celebrex 200 mg 1 p.o. q. da y. 4. Centrum Silver daily. 5. Diltiazem HCL ER 360 mg 1 p.o. q. day. 6. Glucosamine 500 mg b.i.d. 7. Hydrochlorothiazide 1 p.o. q. day. 8. L-thyroxine 112 mcg daily. 9. Losartan potassium 50 mg 1 p.o. q. day. 10. Omeprazole 20 mg 1 p.o. q. day. 11. Potassium chloride CR 80 mEq 1 p.o. b.i.d. 12. ProAir HFA q. 6 hours p.r.n. 13. Spiriva handihaler 18 mcg daily. 14. Trazodone HCL 50 mg 1 p.o. at bedtime. The patient admits to glasses, admits to bilateral hearing aids, admits to dentures being full upper plate. PHYSICAL EXAMINATION: VITAL SIGNS: Height 62 inches, weight 155 pounds, BM I 28.3, blood pressure 116/ 54, pulse 70, respirations 16, and temperature 98.7. GENERAL: The patient is alert and oriented x3, in no acute distress at rest. Breathing easily without respiratory dis tress. HEENT: Head, normocephalic and atraumatic. Eyes: PERRLA, EOMI, sclerae are anicteric, conjunctivae without injection. Ears: Auditory acuity grossly intact bilaterally. Nose: Bilateral patent nares without tenderness or drainage. Throat: Pharynx clear without erythema or exudate. Tongue and uvula midline. Buccal mucosa pink and moist. NECK: Supple without adenopathy, JVD, carotid bruit, masses or tenderness. CHEST: Symmetrical, nontender to palpation. AP diameter within normal limits. HEART: Regular rate and rhythm without murmurs, rubs or gallops appreciated at this time. LUNGS: C lear to auscultation bilaterally without wheezes, rales or rhonchi. ABDOMEN: Soft and nondistended. Normoactive bowel sounds x4 without tenderness. NEUROLOGIC: Cranial nerves II through XII grossly i ntact without any focal sensorimotor deficits noted. BACK: Without CVA tenderness or tenderness to palpation. EXTREMITIES/MUSCULOSKELETAL: The patient has slight decreased range of motion of her le ft hip, pain on extremes of the motion, tenderness to the medial joint line, bilateral knees. Mild fullness in the popliteal region, more on the left than the right. Lacks 2-3 degrees of full exten arun of bilateral knees with flexion of 125 on the left knee and 115 degrees on the right knee. There is pain and crepitus with patellofemoral compression bilaterally without mediolateral laxity, wi thout anterior-posterior instability. Negative Mel bilaterally without signs of DVT. Pedal pulses present +2 bilaterally. The patient is neurovascularly intact. DIAGNOSTIC STUDIES: X-rays of the right knee dated July 02, 2012 at [facility], weightbearing, AP, tunnel, sunrise, lateral views with severe osteoarthritis with sclerosis and mild medial transla tion of the femur on the tibia, relative sparing of the lateral compartment and patellofemoral joint. At the time of dictation, more recent films currently are not available, but the patient will be getting new knee films dated on July 15, 2014 and these will be reviewed and documented in the [facility] electronic medical system for review. IMPRESSION: 1. Progressive osteoarthritis, bilateral knees, more symptomatic on the right knee. Failed conservative measures. 2. Emphysema. 3. Thyroid disease. 4. Hypertension. 5. History of lung cancer. PLAN: Dr. Renny Wyman did discuss and review with the patient all treatment options including surgical versus nonsurgical. At this time, the patient does wish to proceed with right total knee arthropla sty. Potential risks, benefits and complications of this procedure were reviewed in detail including but not limited to , infection, nerve and blood vessel damage, persistent pain, numbness, tin gling, paresthesias, blood clot, pulmonary embolism and the requirement for possible further surgery. The patient expressed full understanding, has no further questions for the doctor. The patient d oes agree to proceed with the above-stated procedure and signed the appropriate surgery consent form. CLARISSE Dutton T: JEAN CLAUDE JOB: [id number] 07/15/14 1226 <Electronically signed by Emily Bravo > Date: Time: Emily Bravo CC: Emily Bravo; Meli Gómez DO Date Dictated: 07/11/14 143 Date Transcribed: 07/11 Pe Manager: Signed ____ I have re-examined the patient. There are no clinical changes since date of exam. ____ See Progress Notes for Changes ____ Dictated on Admission Dany e: Time: Signature: -Apr-2014 Carotid Duplex Ultrasound Result: Comments: See Note; NOTES: [facility] Cardiovascular Services [address] [place] [address] Carotid Duplex Ultrasound 04/28/14 1326 MR#: [id number] Acct: [id number] Cooper e: AYAD BANUELOS Rep #: [id number] : 1935 78 From: Rashawn Andujar MD Attending Dr: Meli Gómez DO Status: REG CLI Ordering Dr: Meli Gómez DO Date: 04/28/14 Location: CT Sex: F C Admitted: Rt. Velocities/BP Lt. Velocities/BP Prox CCA 99/11 cm/sec. Prox CCA 77/17 cm /sec. Mid CCA 54/13 cm/sec. Mid CCA 86/22 cm/ sec. Dist CCA 62/20 cm/sec. Dist CCA 73/18 cm /sec. Prox ICA 65/21 cm /sec. Prox ICA 75/22 cm /sec. Mid ICA 85/27 cm/sec. Mid ICA 79/31 cm/ sec. Dist ICA 56/17 cm/sec. Dist ICA 77/26 cm /sec. Rt. ICA/CCA = 1.2. Lt. ICA/CCA = .9. Prox ECA 92/15 cm/sec. Prox ECA 96/16 c m /sec. Rt. Vert. 41/12 cm/sec. Lt. Vert. 55/15 cm/sec. Right Extracranial There is homogeneous, smooth atherosclerotic plaque noted in the right common carotid artery. There is heterogeneous, ir regular atherosclerotic plaque noted in the right internal carotid artery. There is no significant atherosclerotic plaque noted in the right external carotid artery. Antegrade flow is noted in the r ight vertebral artery. There is no significant atherosclerotic plaque noted in the right bulb. Left Extracranial There is intimal thickening but no significant atherosclerotic plaque noted in the l eft common carotid artery. There is heterogeneous, irregular atherosclerotic plaque noted in the left internal carotid artery. There is no significant atherosclerotic plaque noted in the left hammer runner al carotid artery. Antegrade flow is noted in the left vertebral artery. There is no significant atherosclerotic plaque noted in the left bulb. Procedure Carotid Duplex 65349. Exam performed in de partment. Interpretation Summary Mild (<50%) stenosis right extracranial internal carotid. Mild (<50%) stenosis left extracranial internal carotid. Flow within the vertebral arterie s is antegrade bilaterally. Ordering Physician: Meli Gómez Performed By: Emiliano BERNABE, Fadia dooley and Student 05/02/142038 Date Rashawn Andujar MD CC: Meli Gómez DO Da te Dictated: 04/28/14 1326 Date Transcribed: 05/02/142038 Pe Manager: Signed 28-Apr-2014 Chest without Contrast Result: Comments: See Note; NOTES: [facility] Imaging Services [address] [place] [address] CAT Scan Report MR#: [id number] Acct: [id number] Name: AYAD BANUELOS Rep #: [id number] : 1935 F 78 From: Blaine Victor MD PCP: Meli Gómez DO Status: REG CLI Study: Chest without Contrast Date of Exam: 04/28/14 Exam# [id number] Ordering Dr: Jamie Cruz MD UDY: CT CHEST WITHOUT CONTRAST REASON FOR EXAM: Female, 78 years old. Prior right lower lobectomy. RADIATION DOSAGE (If Supplied By Facility): CTDIvol = ( 10.50 ) mGy, DLP = ( 321.01 ) mGycm TECH NIQUE: High resolution transaxial imaging was performed without the administration of intravenous contrast material. Multiplanar coronal and sagittal images were reformatted. COMPARISON: Comparison is made with prior study dated October 25, 2013. FINDINGS: There is elevation of the right hemidiaphragm secondary to prior right lower lobectomy. Emphysematous ch anges are once again seen in the upper lobes with multiple bullous formation more prominent in the right upper lobe and right middle lobe. Stable 8.7 mm pleural-based nodule in the peripheral aspect of the right upper lobe. No new abnormality is seen. There are calcifications of the coronary arteries. There are multiple small lymph nodes within the mediastinum, which are normal in size and mor phology most compatible with reactive lymph hyperplasia. Normal hilar regions. Normal unenhanced pulmonary arteries. There is atherosclerotic calcification of the aortic arch with tortuosity and genesis gation of the aortic arch and descending thoracic aorta. There are multi-level degenerative changes of the thoracic spine. Increased kyphosis. There is no demonstrated abnormality of the visualized upper abdomen. IMPRESSION: Status post right lower lobe ectomy with elevation of the right hemidiaphragm. Stable peripheral based nodule in the right upper lob e. Emphysematous changes with bullous formation worse in the right upper lobe and right middle lobe. Electronically Signed: Blaine Victor MD at 15:55 EST Tel [phone], Service support [phone], CC: Meli Gómez DO; Jamie Cruz MD Pe Manager: Signed 18-Apr-2014 [employer] CAD Result: Comments: See Note; NOTES: [facility] Imaging Services [address] [place] [address] Breast Imaging Report MR#: [id number] Acct: [id number] Name: AYAD BANUELOS Rep #: [id number] : 1935 F 78 From: Blaine Victor MD PCP: Meli Gómez DO Status: REG CLI Study: [employer] Date of Exam: 04/18/14 Exam# [id number] Ordering Dr: Meli Gómez DO MAMMOGRAPHY - BILATERAL SCREENING REASON FOR EXAM: Female, 78 years old. Routine annual screening examination. PERTINENT HISTORY: Non-contributory. TECHNIQUE: Digital examination. Mediolateral oblique (MLO) and craniocaudad (CC) views of both breasts were obtained. CAD: CAD was performed on this study. COMPARISON: Comparison is made with prior study dated April 01, 2013 and February 152011. FINDINGS: Breast Composition: The breasts are almost entirely fatty. There are no dominant masses or suspicious calcifications. Stable 5 mm well-defin ed nodule in the deep mid slightly lateral aspect of the left breast. No other significant abnormalities are identified. There has been no significant change since the prior study. IMPRESSION: Stable bilateral screening mammogram. Yearly follow-up recommended. (A) ASSESSMENT CATEGORY: BIRADS Category 2: Benign. A lette r regarding these results will be sent to the patient by the facility within 30 days. Approximately 10% of breast cancers are not detected by mammography. A normal mammogram should not delay biopsy of a clinically suspicious abnormality. Electronically Signed: Blaine Victor MD at 13:33 EST Tel [phone], Service support [phone], CC: Meli Gómez DO Pe Manager: Signed 01-Apr-2013 [employer] Result: Comments: See Note; NOTES: [facility] Imaging Services [address] [place] [address] Breast Imaging Report MR#: [id number] Acct: [id number] Name: AYAD BANUELOS Rep #: [id number] : 1935 F 77 From: Blaine Victor MD PCP: Status: REG CLI Exam# [id number] Ordering Dr: Meli Gómez DO MAMMOGRAPHY - BILATERAL SCREENING REASON FOR EXAM: Female, 77 years old. Routine annual screening examination. PERTINENT HISTORY: Non-contributory. TECHNIQUE: Digital examination. Mediolateral oblique (MLO) and craniocaudad (CC) views of both breasts were obtaine d. CAD: CAD was performed on this study. COMPARISON: Comparison is made with prior examination dated March 05, 2012 and March 02, 2011 FINDINGS: The ben ast composition is composed of scattered fibroglandular tissues ranging from 25% to 50% of the breast. Stable 5 mm density in the left the outer aspect of the breast. This is unchanged. There are n o dominant masses or suspicious calcifications. No other significant abnormalities are identified. There has been no significant change since the prior study. I MPRESSION: Stable bilateral screening mammogram. Yearly follow-up recommended. (A) ASSESSMENT CATEGORY: BIRADS Category 2: Benign finding(s). A letter regarding these results will be sent to the patient by the facility within 30 days. Approximately 10% of breast cancers are not detected by mammography. A normal mammogram should not delay biopsy of a clinica lly suspicious abnormality. Electronically Signed: Blaine Victor M.D. at 16:07 EST , Service support [phone], CC: Meli Gómez DO Pe Manager: Signed Immunization Name Dates Details Influenza (3 years and up) on: 23-Jan-2009 Comments: Lot #[id number] deltoidgiven by:[facility] Family History Unknown Family Member Name Dates Details Brother 1 Comments: 84- myasthenia gravis, pacer Status: Active Father Comments: of colon CA Status: Active First Degree Relatives Comments: HBP, High cholesterol, thyroid dx Status: Active Mother Comments: of drug induced liver failure Status: Active Sister 1 Comments: of CAD- quad bypass age 61 of stroke Status: Active Social History Name Dates Details Alcohol Use Comments: Occasional alcohol use Status: Active Caffeine Use Comments: 4 Coffee, tea QD Status: Active Exercise History Comments: 45 mins. 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 Comments: updated 05-26-11 Status: Active Smoking Status Name Dates Details Former smoker Vital Signs Date Test Result Details [id number] Temperature 99.3 f Comments: Method: Temporal Pulse 81 /min Comments: Pattern: Regular Respiration Rate 16 /min Comments: Pattern: Unlabored O2 SAT 91 % Comments: Room air BP Systolic 142 mm[Hg] Comments: Patient Position: Sitting; Cuff Location: Left Arm; Cuff Size: Standard BP Diastolic 78 mm[Hg] Comments: Patient Position: Sitting; Cuff Location: Left Arm; Cuff Size: Standard Weight 166.1875 lb Height 62 in Body Mass Index Calculated 30.4 kg/m2 Body Surface Area Calculated 1.77 m2 [id number] Temperature 98.3 f Comments: Method: Temporal Pulse 72 /min Comments: Pattern: Regular Respiration Rate 16 /min Comments: Pattern: Unlabored BP Systolic 122 mm[Hg] Comments: Patient Position: Sitting; Cuff Location: Left Arm; Cuff Size: Standard BP Diastolic 68 mm[Hg] Comments: Patient Position: Sitting; Cuff Location: Left Arm; Cuff Size: Standard Weight 166.1875 lb Height 62 in Body Mass Index Calculated 30.4 kg/m2 Body Surface Area Calculated 1.77 m2 :31 Temperature 98.6 f Comments: Method: Temporal Pulse 66 /min Comments: Pattern: Regular Respiration Rate 16 /min Comments: Pattern: Unlabored BP Systolic 130 mm[Hg] Comments: Patient Position: Sitting; Cuff Location: Left Arm; Cuff Size: Standard BP Diastolic 68 mm[Hg] Comments: Patient Position: Sitting; Cuff Location: Left Arm; Cuff Size: Standard Weight 166.1875 lb Height 62 in Body Mass Index Calculated 30.4 kg/m2 Body Surface Area Calculated 1.77 m2 :37 Temperature 98 f Comments: Method: Temporal Pulse 69 /min Comments: Pattern: Regular Respiration Rate 18 /min Comments: Pattern: Unlabored O2 SAT 96 % Comments: Room air BP Systolic 122 mm[Hg] Comments: Patient Position: Sitting; Cuff Location: Left Arm; Cuff Size: Large BP Diastolic 78 mm[Hg] Comments: Patient Position: Sitting; Cuff Location: Left Arm; Cuff Size: Large Weight 165.1875 lb Height 62 in Body Mass Index Calculated 30.21 kg/m2 Body Surface Area Calculated 1.76 m2 :15 Temperature 97.4 f Pulse 61 /min Comments: Pattern: Regular Respiration Rate 16 /min Comments: Pattern: Unlabored O2 SAT 92 % Comments: Room air BP Systolic 124 mm[Hg] Comments: Patient Position: Sitting; Cuff Location: Left Arm; Cuff Size: Standard BP Diastolic 82 mm[Hg] Comments: Patient Position: Sitting; Cuff Location: Left Arm; Cuff Size: Standard Weight 168 lb Height 62 in Body Mass Index Calculated 30.73 kg/m2 Body Surface Area Calculated 1.78 m2 :13 Temperature 97.6 f Comments: Method: Temporal Pulse 62 /min Comments: Pattern: Regular Respiration Rate 17 /min Comments: Pattern: Unlabored O2 SAT 94 % Comments: Room air BP Systolic 130 mm[Hg] Comments: Patient Position: Sitting; Cuff Location: Left Arm; Cuff Size: Standard BP Diastolic 72 mm[Hg] Comments: Patient Position: Sitting; Cuff Location: Left Arm; Cuff Size: Standard Weight 168 lb Height 62 in Body Mass Index Calculated 30.73 kg/m2 Body Surface Area Calculated 1.78 m2 :36 Temperature 97.9 f Comments: Method: Temporal Pulse 64 /min Comments: Pattern: Regular Respiration Rate 16 /min Comments: Pattern: Unlabored BP Systolic 134 mm[Hg] Comments: Patient Position: Sitting; Cuff Location: Left Arm; Cuff Size: Standard BP Diastolic 70 mm[Hg] Comments: Patient Position: Sitting; Cuff Location: Left Arm; Cuff Size: Standard Weight 167 lb Height 62 in Body Mass Index Calculated 30.54 kg/m2 Body Surface Area Calculated 1.77 m2 :01 Temperature 97.7 f Comments: Method: Temporal Pulse 64 /min Comments: Pattern: Regular Respiration Rate 16 /min Comments: Pattern: Unlabored O2 SAT 97 % Comments: Room air BP Systolic 142 mm[Hg] Comments: Patient Position: Sitting; Cuff Location: Left Arm; Cuff Size: Standard BP Diastolic 78 mm[Hg] Comments: Patient Position: Sitting; Cuff Location: Left Arm; Cuff Size: Standard Weight 167 lb Height 62 in Body Mass Index Calculated 30.54 kg/m2 Body Surface Area Calculated 1.77 m2 :09 Temperature 97.7 f Comments: Method: Temporal Pulse 76 /min Comments: Pattern: Regular Respiration Rate 16 /min Comments: Pattern: Unlabored O2 SAT 95 % Comments: Room air BP Systolic 124 mm[Hg] Comments: Patient Position: Sitting; Cuff Location: Left Arm; Cuff Size: Standard BP Diastolic 76 mm[Hg] Comments: Patient Position: Sitting; Cuff Location: Left Arm; Cuff Size: Standard Weight 167 lb Height 62 in Body Mass Index Calculated 30.54 kg/m2 Body Surface Area Calculated 1.77 m2 :59 Temperature 97.5 f Comments: Method: Temporal Pulse 84 /min Comments: Pattern: Regular Respiration Rate 16 /min Comments: Pattern: Unlabored O2 SAT 97 % Comments: Room air BP Systolic 122 mm[Hg] Comments: Patient Position: Sitting; Cuff Location: Left Arm; Cuff Size: Standard BP Diastolic 76 mm[Hg] Comments: Patient Position: Sitting; Cuff Location: Left Arm; Cuff Size: Standard Weight 167 lb Height 62 in Body Mass Index Calculated 30.54 kg/m2 Body Surface Area Calculated 1.77 m2 :11 Temperature 97.4 f Comments: Method: Temporal Pulse 68 /min Comments: Pattern: Regular Respiration Rate 16 /min Comments: Pattern: Unlabored O2 SAT 93 % Comments: Room air BP Systolic 118 mm[Hg] Comments: Patient Position: Sitting; Cuff Location: Left Arm; Cuff Size: Standard BP Diastolic 72 mm[Hg] Comments: Patient Position: Sitting; Cuff Location: Left Arm; Cuff Size: Standard Weight 163 lb Height 62 in Body Mass Index Calculated 29.81 kg/m2 Body Surface Area Calculated 1.75 m2 :04 Pulse 73 /min Comments: Pattern: Regular Respiration Rate 18 /min Comments: Pattern: Unlabored O2 SAT 96 % Comments: Room air BP Systolic 138 mm[Hg] Comments: Patient Position: Sitting; Cuff Location: Left Arm; Cuff Size: Standard BP Diastolic 68 mm[Hg] Comments: Patient Position: Sitting; Cuff Location: Left Arm; Cuff Size: Standard Weight 163.125 lb Height 62 in Body Mass Index Calculated 29.84 kg/m2 Body Surface Area Calculated 1.75 m2 :51 Temperature 97.3 f Pulse 77 /min Comments: Pattern: Regular Respiration Rate 17 /min Comments: Pattern: Unlabored O2 SAT 98 % Comments: Room air BP Systolic 124 mm[Hg] Comments: Patient Position: Sitting; Cuff Location: Left Arm; Cuff Size: Standard BP Diastolic 80 mm[Hg] Comments: Patient Position: Sitting; Cuff Location: Left Arm; Cuff Size: Standard Weight 160.125 lb Height 62 in Body Mass Index Calculated 29.29 kg/m2 Body Surface Area Calculated 1.74 m2 :49 Temperature 97 f Comments: Method: Tympanic Pulse 63 /min Comments: Pattern: Regular Respiration Rate 18 /min Comments: Pattern: Unlabored O2 SAT 95 % Comments: Room air BP Systolic 112 mm[Hg] Comments: Patient Position: Sitting; Cuff Location: Left Arm; Cuff Size: Standard BP Diastolic 64 mm[Hg] Comments: Patient Position: Sitting; Cuff Location: Left Arm; Cuff Size: Standard Weight 168 lb Height 62 in Body Mass Index Calculated 30.73 kg/m2 Body Surface Area Calculated 1.78 m2 :27 Temperature 97.6 f Comments: Method: Temporal Pulse 68 /min Comments: Pattern: Regular Respiration Rate 15 /min Comments: Pattern: Unlabored BP Systolic 124 mm[Hg] Comments: Patient Position: Sitting; Cuff Location: Left Arm; Cuff Size: Standard BP Diastolic 72 mm[Hg] Comments: Patient Position: Sitting; Cuff Location: Left Arm; Cuff Size: Standard Weight 169 lb Height 62 in Body Mass Index Calculated 30.91 kg/m2 Body Surface Area Calculated 1.78 m2 :32 Temperature 98.6 f Comments: Method: Temporal Pulse 65 /min Comments: Pattern: Regular Respiration Rate 16 /min Comments: Pattern: Unlabored O2 SAT 93 % Comments: Room air BP Systolic 120 mm[Hg] Comments: Patient Position: Sitting; Cuff Location: Left Arm; Cuff Size: Standard BP Diastolic 66 mm[Hg] Comments: Patient Position: Sitting; Cuff Location: Left Arm; Cuff Size: Standard Weight 164 lb Height 62 in Body Mass Index Calculated 30 kg/m2 Body Surface Area Calculated 1.76 m2 :25 Temperature 97.4 f Comments: Method: Tympanic Pulse 79 /min Comments: Pattern: Regular Respiration Rate 18 /min Comments: Pattern: Unlabored O2 SAT 95 % Comments: Room air BP Systolic 122 mm[Hg] Comments: Patient Position: Sitting; Cuff Location: Left Arm; Cuff Size: Standard BP Diastolic 64 mm[Hg] Comments: Patient Position: Sitting; Cuff Location: Left Arm; Cuff Size: Standard Weight 164 lb Height 62 in Body Mass Index Calculated 30 kg/m2 Body Surface Area Calculated 1.76 m2 :39 Temperature 96.5 f Comments: Method: Oral Pulse 70 /min Comments: Pattern: Regular Respiration Rate 16 /min Comments: Pattern: Unlabored BP Systolic 108 mm[Hg] Comments: Patient Position: Sitting; Cuff Location: Left Arm; Cuff Size: Standard BP Diastolic 64 mm[Hg] Comments: Patient Position: Sitting; Cuff Location: Left Arm; Cuff Size: Standard Weight 154 lb Height 62 in Body Mass Index Calculated 28.17 kg/m2 Body Surface Area Calculated 1.71 m2 :51 Temperature 98.5 f Comments: Method: Oral Pulse 78 /min Comments: Pattern: Regular Respiration Rate 20 /min Comments: Pattern: Unlabored O2 SAT 90 % Comments: Room air BP Systolic 122 mm[Hg] Comments: Patient Position: Sitting; Cuff Location: Left Arm; Cuff Size: Standard BP Diastolic 68 mm[Hg] Comments: Patient Position: Sitting; Cuff Location: Left Arm; Cuff Size: Standard Weight 154 lb Height 62 in Body Mass Index Calculated 28.17 kg/m2 Body Surface Area Calculated 1.71 m2 :10 Temperature 97.4 f Pulse 62 /min Comments: Pattern: Regular Respiration Rate 16 /min Comments: Pattern: Unlabored O2 SAT 96 % Comments: Room air BP Systolic 136 mm[Hg] Comments: Patient Position: Sitting; Cuff Location: Left Arm; Cuff Size: Standard BP Diastolic 78 mm[Hg] Comments: Patient Position: Sitting; Cuff Location: Left Arm; Cuff Size: Standard Weight 160 lb Height 62 in Body Mass Index Calculated 29.26 kg/m2 Body Surface Area Calculated 1.74 m2 :44 Temperature 98 f Pulse 68 /min Comments: Pattern: Regular Respiration Rate 16 /min Comments: Pattern: Unlabored BP Systolic 126 mm[Hg] Comments: Patient Position: Sitting; Cuff Location: Left Arm; Cuff Size: Large BP Diastolic 84 mm[Hg] Comments: Patient Position: Sitting; Cuff Location: Left Arm; Cuff Size: Large Weight 160 lb Height 62 in Body Mass Index Calculated 29.26 kg/m2 Body Surface Area Calculated 1.74 m2 :47 Temperature 98 f Comments: Method: Oral Pulse 71 /min Comments: Pattern: Regular Respiration Rate 16 /min Comments: Pattern: Unlabored BP Systolic 120 mm[Hg] Comments: Patient Position: Sitting; Cuff Location: Left Arm; Cuff Size: Standard BP Diastolic 68 mm[Hg] Comments: Patient Position: Sitting; Cuff Location: Left Arm; Cuff Size: Standard Weight 158.4375 lb Height 62 in Body Mass Index Calculated 28.98 kg/m2 Body Surface Area Calculated 1.73 m2 :10 Temperature 97.5 f Pulse 68 /min Comments: Pattern: Regular Respiration Rate 16 /min Comments: Pattern: Unlabored BP Systolic 132 mm[Hg] Comments: Patient Position: Sitting; Cuff Location: Left Arm; Cuff Size: Large BP Diastolic 80 mm[Hg] Comments: Patient Position: Sitting; Cuff Location: Left Arm; Cuff Size: Large Weight 158 lb Height 62 in Body Mass Index Calculated 28.9 kg/m2 Body Surface Area Calculated 1.73 m2 :01 Temperature 96.4 f Pulse 68 /min Comments: Pattern: Regular Respiration Rate 18 /min Comments: Pattern: Unlabored BP Systolic 100 mm[Hg] Comments: Patient Position: Sitting; Cuff Location: Left Arm; Cuff Size: Large BP Diastolic 72 mm[Hg] Comments: Patient Position: Sitting; Cuff Location: Left Arm; Cuff Size: Large Weight 153 lb Height 62 in Body Mass Index Calculated 27.98 kg/m2 Body Surface Area Calculated 1.71 m2 :49 Temperature 97.1 f Pulse 68 /min Comments: Pattern: Regular Respiration Rate 16 /min Comments: Pattern: Unlabored BP Systolic 112 mm[Hg] Comments: Patient Position: Sitting; Cuff Location: Left Arm; Cuff Size: Large BP Diastolic 66 mm[Hg] Comments: Patient Position: Sitting; Cuff Location: Left Arm; Cuff Size: Large Weight 153 lb Height 62 in Body Mass Index Calculated 27.98 kg/m2 Body Surface Area Calculated 1.71 m2 :40 Temperature 96.3 f Pulse 76 /min Comments: Pattern: Regular Respiration Rate 18 /min Comments: Pattern: Unlabored BP Systolic 116 mm[Hg] Comments: Patient Position: Sitting; Cuff Location: Left Arm; Cuff Size: Large BP Diastolic 70 mm[Hg] Comments: Patient Position: Sitting; Cuff Location: Left Arm; Cuff Size: Large Weight 158 lb Height 62 in Body Mass Index Calculated 28.9 kg/m2 Body Surface Area Calculated 1.73 m2 :34 Temperature 97.3 f Pulse 84 /min Comments: Pattern: Regular Respiration Rate 18 /min Comments: Pattern: Unlabored BP Systolic 124 mm[Hg] Comments: Patient Position: Sitting; Cuff Location: Left Arm; Cuff Size: Large BP Diastolic 74 mm[Hg] Comments: Patient Position: Sitting; Cuff Location: Left Arm; Cuff Size: Large Weight 157 lb Height 62 in Body Mass Index Calculated 28.72 kg/m2 Body Surface Area Calculated 1.72 m2 :16 Temperature 99 f Comments: Method: Oral Pulse 68 /min Comments: Pattern: Regular O2 SAT 98 % Comments: Room air BP Systolic 124 mm[Hg] Comments: Patient Position: Sitting; Cuff Location: Left Arm; Cuff Size: Standard BP Diastolic 80 mm[Hg] Comments: Patient Position: Sitting; Cuff Location: Left Arm; Cuff Size: Standard Weight 157 lb Height 62 in Body Mass Index Calculated 28.72 kg/m2 Body Surface Area Calculated 1.72 m2 :37 Temperature 96.2 f Pulse 88 /min Comments: Pattern: Regular Respiration Rate 20 /min Comments: Pattern: Unlabored BP Systolic 122 mm[Hg] Comments: Patient Position: Sitting; Cuff Location: Left Arm; Cuff Size: Large BP Diastolic 84 mm[Hg] Comments: Patient Position: Sitting; Cuff Location: Left Arm; Cuff Size: Large Weight 157 lb Height 62 in Body Mass Index Calculated 28.72 kg/m2 Body Surface Area Calculated 1.72 m2 :07 Temperature 97.1 f Pulse 68 /min Comments: Pattern: Regular Respiration Rate 18 /min Comments: Pattern: Unlabored BP Systolic 120 mm[Hg] Comments: Patient Position: Sitting; Cuff Location: Left Arm; Cuff Size: Standard BP Diastolic 64 mm[Hg] Comments: Patient Position: Sitting; Cuff Location: Left Arm; Cuff Size: Standard Weight 168 lb Height 62 in Body Mass Index Calculated 30.73 kg/m2 Body Surface Area Calculated 1.78 m2 :04 Temperature 97.9 f Pulse 62 /min Comments: Pattern: Regular Respiration Rate 18 /min Comments: Pattern: Unlabored BP Systolic 124 mm[Hg] Comments: Patient Position: Sitting; Cuff Location: Left Arm; Cuff Size: Standard BP Diastolic 74 mm[Hg] Comments: Patient Position: Sitting; Cuff Location: Left Arm; Cuff Size: Standard Weight 168 lb Height 62 in Body Mass Index Calculated 30.73 kg/m2 Body Surface Area Calculated 1.78 m2 :20 Temperature 97.1 f Pulse 68 /min Comments: Pattern: Regular Respiration Rate 18 /min Comments: Pattern: Unlabored BP Systolic 114 mm[Hg] Comments: Patient Position: Sitting; Cuff Location: Left Arm; Cuff Size: Large BP Diastolic 56 mm[Hg] Comments: Patient Position: Sitting; Cuff Location: Left Arm; Cuff Size: Large Weight 168 lb Height 62 in Body Mass Index Calculated 30.73 kg/m2 Body Surface Area Calculated 1.78 m2 :18 Temperature 97.7 f Pulse 60 /min Comments: Pattern: Regular Respiration Rate 18 /min Comments: Pattern: Unlabored O2 SAT 92 % Comments: Room air BP Systolic 124 mm[Hg] Comments: Patient Position: Sitting; Cuff Location: Left Arm; Cuff Size: Standard BP Diastolic 70 mm[Hg] Comments: Patient Position: Sitting; Cuff Location: Left Arm; Cuff Size: Standard Weight 167 lb Height 62 in Body Mass Index Calculated 30.54 kg/m2 Body Surface Area Calculated 1.77 m2 :28 O2 SAT 92 % Comments: Room air :35 Temperature 97.1 f Comments: Method: Oral Pulse 72 /min Comments: Pattern: Regular Respiration Rate 16 /min Comments: Pattern: Unlabored BP Systolic 148 mm[Hg] Comments: Patient Position: Sitting; Cuff Location: Left Arm; Cuff Size: Standard BP Diastolic 80 mm[Hg] Comments: Patient Position: Sitting; Cuff Location: Left Arm; Cuff Size: Standard Weight 167.9 lb Height 62 in Body Mass Index Calculated 30.71 kg/m2 Body Surface Area Calculated 1.77 m2 :36 Temperature 97.3 f Comments: Method: Oral Respiration Rate 20 /min Comments: Pattern: Unlabored Weight 165 lb Height 62 in Body Mass Index Calculated 30.18 kg/m2 Body Surface Area Calculated 1.76 m2 :22 Temperature 97.2 f Pulse 56 /min Comments: Pattern: Regular Respiration Rate 16 /min Comments: Pattern: Unlabored BP Systolic 110 mm[Hg] Comments: Patient Position: Sitting; Cuff Location: Left Arm; Cuff Size: Large BP Diastolic 62 mm[Hg] Comments: Patient Position: Sitting; Cuff Location: Left Arm; Cuff Size: Large Weight 165 lb Height 62 in Body Mass Index Calculated 30.18 kg/m2 Body Surface Area Calculated 1.76 m2 :45 Temperature 98.3 f Pulse 72 /min Comments: Pattern: Regular Respiration Rate 18 /min Comments: Pattern: Unlabored BP Systolic 122 mm[Hg] Comments: Patient Position: Sitting; Cuff Location: Left Arm; Cuff Size: Large BP Diastolic 82 mm[Hg] Comments: Patient Position: Sitting; Cuff Location: Left Arm; Cuff Size: Large Weight 164 lb Height 62 in Body Mass Index Calculated 30 kg/m2 Body Surface Area Calculated 1.76 m2 :22 Temperature 96.9 f Pulse 64 /min Comments: Pattern: Regular Respiration Rate 16 /min Comments: Pattern: Unlabored BP Systolic 118 mm[Hg] Comments: Patient Position: Sitting; Cuff Location: Left Arm; Cuff Size: Large BP Diastolic 68 mm[Hg] Comments: Patient Position: Sitting; Cuff Location: Left Arm; Cuff Size: Large Weight 168 lb Height 62 in Body Mass Index Calculated 30.73 kg/m2 Body Surface Area Calculated 1.78 m2 [id number] Temperature 97.4 f Pulse 72 /min Comments: Pattern: Regular Respiration Rate 18 /min Comments: Pattern: Unlabored BP Systolic 126 mm[Hg] Comments: Patient Position: Sitting; Cuff Location: Left Arm; Cuff Size: Standard BP Diastolic 72 mm[Hg] Comments: Patient Position: Sitting; Cuff Location: Left Arm; Cuff Size: Standard Weight 164 lb Height 62 in Body Mass Index Calculated 30 kg/m2 Body Surface Area Calculated 1.76 m2 :32 Temperature 97.6 f Pulse 72 /min Comments: Pattern: Regular Respiration Rate 18 /min Comments: Pattern: Unlabored BP Systolic 130 mm[Hg] Comments: Patient Position: Sitting; Cuff Location: Left Arm; Cuff Size: Large BP Diastolic 86 mm[Hg] Comments: Patient Position: Sitting; Cuff Location: Left Arm; Cuff Size: Large Weight 165 lb :23 Pulse 60 /min Comments: Pattern: Regular Respiration Rate 18 /min Comments: Pattern: Unlabored BP Systolic 120 mm[Hg] Comments: Patient Position: Sitting; Cuff Location: Left Arm; Cuff Size: Standard BP Diastolic 72 mm[Hg] Comments: Patient Position: Sitting; Cuff Location: Left Arm; Cuff Size: Standard Weight 174 lb :32 Temperature 98.1 f Pulse 68 /min Comments: Pattern: Regular Respiration Rate 18 /min Comments: Pattern: Unlabored BP Systolic 134 mm[Hg] Comments: Patient Position: Sitting; Cuff Location: Left Arm; Cuff Size: Large BP Diastolic 74 mm[Hg] Comments: Patient Position: Sitting; Cuff Location: Left Arm; Cuff Size: Large Weight 172 lb :56 Temperature 98.1 f Comments: Method: Undefined Pulse 72 /min Comments: Pattern: Regular Respiration Rate 18 /min Comments: Pattern: Undefined BP Systolic 130 mm[Hg] Comments: Patient Position: Sitting; Cuff Location: Right Arm; Cuff Size: Standard BP Diastolic 66 mm[Hg] Comments: Patient Position: Sitting; Cuff Location: Right Arm; Cuff Size: Standard Weight 181 lb Height 0 in Head Circumference 0.00 cm :37 Temperature 96.8 f Comments: Method: Undefined Pulse 72 /min Comments: Pattern: Regular Respiration Rate 18 /min Comments: Pattern: Undefined BP Systolic 130 mm[Hg] Comments: Patient Position: Sitting; Cuff Location: Left Arm; Cuff Size: Standard BP Diastolic 76 mm[Hg] Comments: Patient Position: Sitting; Cuff Location: Left Arm; Cuff Size: Standard Weight 184 lb Height 0 in Head Circumference 0.00 cm :46 Temperature 97.7 f Comments: Method: Undefined Pulse 72 /min Comments: Pattern: Regular Respiration Rate 18 /min Comments: Pattern: Undefined BP Systolic 120 mm[Hg] Comments: Patient Position: Sitting; Cuff Location: Left Arm; Cuff Size: Large BP Diastolic 74 mm[Hg] Comments: Patient Position: Sitting; Cuff Location: Left Arm; Cuff Size: Large Weight 189 lb Height 0 in Head Circumference 0.00 cm :47 Pulse 66 /min Comments: Pattern: Regular Respiration Rate 18 /min Comments: Pattern: Unlabored BP Systolic 142 mm[Hg] Comments: Patient Position: Sitting; Cuff Location: Left Arm; Cuff Size: Standard BP Diastolic 70 mm[Hg] Comments: Patient Position: Sitting; Cuff Location: Left Arm; Cuff Size: Standard Weight 194.25 lb Height 62 in Body Mass Index Calculated 35.53 kg/m2 Body Surface Area Calculated 1.89 m2 Head Circumference 0.00 cm Results Date Description Value Details [id number] CBC W/Diff, Automated Comments: [facility] [address] [place], [place], [address] Absolute Lymph 1.08 {X10_3/ul} (Normal) Range: 0.83-4.51 Absolute Neut 5.7 {X10_3/uL} (Normal) Range: 2.0-7.7 IM GRAN % 0.400 % (Normal) Range: 0.0-0.9 Comments: IG% - Immature Granulocytes (promyelocytes, myelocytes andmetamyelocytes) > 1% indicates that a LEFT SHIFT is Present. BASO% 0.7 % (Normal) Range: 0-1 EO% 7.7 % (Abnormal) Range: 0-5 MONO% 8.9 % (Normal) Range: 0-10 LY% 13.1 % (Abnormal) Range: 19-41 NEUT% 69.2 % (Normal) Range: 47-70 MPV 11.8 fL (Normal) Range: 6.2-12.0 PLT 184 K/mm3 (Normal) Range: 150-450 RDW SD 48.2 fL (Abnormal) Range: 35.1-43.9 RDW CV 14.6 % (Normal) Range: 11.6-14.6 MCHC 33.2 {g/gl} (Normal) Range: 32-36 MCH 30.9 pg (Normal) Range: 27.0-32.0 MCV 93.1 fL (Normal) Range: 81-99 HCT 43.4 % (Normal) Range: 37-47 HGB 14.4 g/dL (Normal) Range: 12.0-15.0 RBC 4.66 {M/mm3} (Normal) Range: 4.2-5.4 WBC 8.2 K/mm3 (Normal) Range: 4.4-11.0 10-Vrf-[id number]:44 Comprehensive Metabolic Profil Comments: [facility] [address] [place], [place], [id number] GAP 9 (Normal) Range: 5-15 CO2 25.0 mmol/L (Normal) Range: 21.0-32.0 CL 107 mmol/L (Normal) Range: 98-107 K 4.0 mmol/L (Normal) Range: 3.5-5.1 NA 141 mmol/L (Normal) Range: 136-145 T BILI 0.70 mg/dL (Normal) Range: 0.20-1.00 ALT 23 U/L (Normal) Range: 13-56 ALK P 101 U/L (Normal) Range: 45-117 AST 18 U/L (Normal) Range: 15-37 CA 9.1 mg/dL (Normal) Range: 8.5-10.1 A/G 1.0 {RATIO} (Normal) Range: 0.9-2.4 GLOB 3.4 g/dL (Normal) Range: 2.2-4.2 ALB 3.4 g/dL (Normal) Range: 3.2-5.0 T PROT 6.8 g/dL (Normal) Range: 6.4-8.2 BUN/CRE 17.5 {RATIO} (Normal) Range: 10-20 EST GFR - AA 96 mL/min (Normal) Comments: GFR Calc EST GFR 79 mL/min (Normal) Comments: Non- GFR Calc CREAT,SERUM 0.74 mg/dL (Normal) Range: 0.55-1.02 Comments: The validity of the calculated GFR AND GFRAA in patients over70 years has not been determined. Clinical correlation isessential. BUN 13 mg/dL (Normal) Range: 7-18 GLU 100 mg/dL (Normal) Range: 74-106 Comments: Fasting Glucose result from 100 to 125 mg/dLsuggests IMPAIRED HOMEOSTASIS per A.D.A. criteria.Please note revised GLUCOSE reference range xypdpjhib35/02/2018. 54-Cwm-[id number]:44 D-Dimer Quantitative (DVT/PE) Comments: [facility] [address] [place], [place], [address] D-DIMER QUANT 2.06 {FEU/ug/m} (Abnormal) Range: 0.27-0.49 Comments: D-Dimer ELEVATED (>0.49): Additional studies and clinicalassessments are indicated to conclude diagnosis of:Deep Vein Thrombosis (DVT) or Pulmonary Embolism (PE)CRITICAL VALUE VERIFIED. CALLED TO Heather CARMONA N105/16/17 [address]RESULTS READ BACK BY SAME. :04 LIPID PANEL ([id number]) Comments: PATIENT WAS FASTINGPERFORMED BY: [facility] [id number] LDL/HDL Ratio 1.2 {ratio} (Normal) Range: 0.0-3.2 Comments: LDL/HDL Ratio Men Women 1/2 Avg.Risk 1.0 1.5 Av g.Risk 3.6 3.2 2X Avg.Risk 6.2 5.0 3X Avg.Risk 8.0 6.1 LDL Cholesterol Calc 75 mg/dL (Normal) Range: 0-99 VLDL Cholesterol Cas 16 mg/dL (Normal) Range: 5-40 HDL Cholesterol 65 mg/dL (Normal) Triglycerides 80 mg/dL (Normal) Range: 0-149 Cholesterol, Total 156 mg/dL (Normal) Range: 100-199 :04 CBC with auto diff ([id number]) Comments: PATIENT WAS FASTINGPERFORMED BY: [employer] [facility] [id number] Immature Grans (Abs) 0.0 {x10E3/uL} (Normal) Range: 0.0-0.1 Immature Granulocytes 0 % (Normal) Baso (Absolute) 0.0 {x10E3/uL} (Normal) Range: 0.0-0.2 Eos (Absolute) 0.3 {x10E3/uL} (Normal) Range: 0.0-0.4 Monocytes(Absolute) 0.7 {x10E3/uL} (Normal) Range: 0.1-0.9 Lymphs (Absolute) 1.8 {x10E3/uL} (Normal) Range: 0.7-3.1 Neutrophils (Absolute) 4.9 {x10E3/uL} (Normal) Range: 1.4-7.0 Basos 1 % (Normal) Eos 4 % (Normal) Monocytes 9 % (Normal) Lymphs 23 % (Normal) Neutrophils 63 % (Normal) Platelets 218 {x10E3/uL} (Normal) Range: 150-379 RDW 14.7 % (Normal) Range: 12.3-15.4 MCHC 33.7 g/dL (Normal) Range: 31.5-35.7 MCH 30.9 pg (Normal) Range: 26.6-33.0 MCV 92 fL (Normal) Range: 79-97 Hematocrit 43.6 % (Normal) Range: 34.0-46.6 Hemoglobin 14.7 g/dL (Normal) Range: 11.1-15.9 RBC 4.76 {x10E6/uL} (Normal) Range: 3.77-5.28 WBC 7.7 {x10E3/uL} (Normal) Range: 3.4-10.8 17-Ydd-86983:04 METABOLIC PANEL, COMPREHENSIVE Comments: PATIENT WAS FASTINGPERFORMED BY: [facility]CoSaint [facility] TownshipHfoufg9913 [facility] [id number] ([id number]) ALT (SGPT) 19 [iU]/L (Normal) Range: 0-32 AST (SGOT) 19 [iU]/L (Normal) Range: 0-40 Alkaline Phosphatase 95 [iU]/L (Normal) Range: 39-117 Bilirubin, Total 0.4 mg/dL (Normal) Range: 0.0-1.2 A/G Ratio 1.8 (Normal) Range: 1.2-2.2 Globulin, Total 2.4 g/dL (Normal) Range: 1.5-4.5 Albumin 4.4 g/dL (Normal) Range: 3.5-4.7 Protein, Total 6.8 g/dL (Normal) Range: 6.0-8.5 Calcium 9.7 mg/dL (Normal) Range: 8.7-10.3 Carbon Dioxide, Total 23 mmol/L (Normal) Range: 20-29 Chloride 102 mmol/L (Normal) Range: 96-106 Potassium 4.1 mmol/L (Normal) Range: 3.5-5.2 Sodium 141 mmol/L (Normal) Range: 134-144 BUN/Creatinine Ratio 19 (Normal) Range: 12-28 eGFR If Africn Am 81 mL/min/1.73 (Normal) eGFR If NonAfricn Am 71 mL/min/1.73 (Normal) Creatinine 0.78 mg/dL (Normal) Range: 0.57-1.00 BUN 15 mg/dL (Normal) Range: 8-27 Glucose 90 mg/dL (Normal) Range: 65-99 54-Jvl-99922:04 HGB A1C (99519) Comments: PATIENT WAS FASTINGPERFORMED BY: GCommerceCrownpoint Healthcare FacilityTtztep5011 [facility] [id number]; appt 02/06 Hemoglobin A1c 5.8 % (Abnormal) Range: 4.8-5.6 Comments: . Prediabetes: 5.7 - 6.4 Diabetes: >6.4 Glycemic control for adults with diabetes: <7.0 :04 TSH ([id number]) Comments: PATIENT WAS FASTINGPERFORMED BY: GCommerceSaint [facility] Bo[facility]on TownshipLdzjfp9891 [facility] [id number] TSH 2.980 {uIU/mL} (Normal) Range: 0.450-4.500 :09 CBC with auto diff (21308) Comments: PATIENT NOT FASTINGPERFORMED BY: GCommerceSaint [facility] Bo[facility] TownshipFjzutz9399 [facility] [id number] Immature Grans (Abs) 0.0 {x10E3/uL} (Normal) Range: 0.0-0.1 Immature Granulocytes 0 % (Normal) Baso (Absolute) 0.1 {x10E3/uL} (Normal) Range: 0.0-0.2 Eos (Absolute) 0.3 {x10E3/uL} (Normal) Range: 0.0-0.4 Monocytes(Absolute) 0.7 {x10E3/uL} (Normal) Range: 0.1-0.9 Lymphs (Absolute) 1.9 {x10E3/uL} (Normal) Range: 0.7-3.1 Neutrophils (Absolute) 4.7 {x10E3/uL} (Normal) Range: 1.4-7.0 Basos 1 % (Normal) Eos 4 % (Normal) Monocytes 9 % (Normal) Lymphs 25 % (Normal) Neutrophils 61 % (Normal) Platelets 213 {x10E3/uL} (Normal) Range: 150-379 RDW 14.3 % (Normal) Range: 12.3-15.4 MCHC 34.0 g/dL (Normal) Range: 31.5-35.7 MCH 31.6 pg (Normal) Range: 26.6-33.0 MCV 93 fL (Normal) Range: 79-97 Hematocrit 42.7 % (Normal) Range: 34.0-46.6 Hemoglobin 14.5 g/dL (Normal) Range: 11.1-15.9 RBC 4.59 {x10E6/uL} (Normal) Range: 3.77-5.28 WBC 7.6 {x10E3/uL} (Normal) Range: 3.4-10.8 10-Ctc-53737:09 METABOLIC PANEL, COMPREHENSIVE Comments: PATIENT NOT FASTINGPERFORMED BY: LabCoSaint [facility] Hospital [facility] Bo[facility] TownshipNeinqy9358 [facility] [id number] ([id number]) ALT (SGPT) 19 [iU]/L (Normal) Range: 0-32 AST (SGOT) 20 [iU]/L (Normal) Range: 0-40 Alkaline Phosphatase 91 [iU]/L (Normal) Range: 39-117 Bilirubin, Total 0.3 mg/dL (Normal) Range: 0.0-1.2 A/G Ratio 2.0 (Normal) Range: 1.2-2.2 Globulin, Total 2.2 g/dL (Normal) Range: 1.5-4.5 Albumin 4.5 g/dL (Normal) Range: 3.5-4.7 Protein, Total 6.7 g/dL (Normal) Range: 6.0-8.5 Calcium 9.7 mg/dL (Normal) Range: 8.7-10.3 Carbon Dioxide, Total 24 mmol/L (Normal) Range: 20-29 Chloride 103 mmol/L (Normal) Range: 96-106 Potassium 4.1 mmol/L (Normal) Range: 3.5-5.2 Sodium 140 mmol/L (Normal) Range: 134-144 BUN/Creatinine Ratio 15 (Normal) Range: 12-28 eGFR If Africn Am 70 mL/min/1.73 (Normal) eGFR If NonAfricn Am 61 mL/min/1.73 (Normal) Creatinine 0.88 mg/dL (Normal) Range: 0.57-1.00 BUN 13 mg/dL (Normal) Range: 8-27 Glucose 95 mg/dL (Normal) Range: 65-99 :09 HGB A1C (09975) Comments: PATIENT NOT FASTINGPERFORMED BY: [facility] FusionCrownpoint Healthcare FacilityTvuvrt7547 [facility] [id number] Hemoglobin A1c 5.6 % (Normal) Range: 4.8-5.6 Comments: . Pre-diabetes: 5.7 - 6.4 Diabetes: >6.4 Glycemic control for adults with diabetes: <7.0 :09 MICROALBUMIN URINE QUANT Comments: PATIENT NOT FASTINGPERFORMED BY: [employer] Rncfvj3370 [facility] [id number] ([id number]) Alb/Creat Ratio 3.9 {mg/g_creat} (Normal) Range: 0.0-30.0 Albumin, Urine 3.0 ug/mL (Normal) Creatinine, Urine 77.8 mg/dL (Normal) :09 LIPID PANEL (48615) Comments: PATIENT NOT FASTINGPERFORMED BY: [employer] Ijkdcn1568 [facility] [id number] LDL/HDL Ratio 1.5 {ratio} (Normal) Range: 0.0-3.2 Comments: LDL/HDL Ratio Men Women 1/2 Avg.Risk 1.0 1.5 Av g.Risk 3.6 3.2 2X Avg.Risk 6.2 5.0 3X Avg.Risk 8.0 6.1 LDL Cholesterol Calc 96 mg/dL (Normal) Range: 0-99 VLDL Cholesterol Cas 17 mg/dL (Normal) Range: 5-40 HDL Cholesterol 63 mg/dL (Normal) Triglycerides 85 mg/dL (Normal) Range: 0-149 Cholesterol, Total 176 mg/dL (Normal) Range: 100-199 19-Jun-20179:49 CBC W/AUTO DIFF WBC Comments: PATIENT NOT FASTINGPERFORMED BY: [facility] Dstflq0338 [facility] [id number] Information: NURSE DRAW ([id number]) Immature Grans (Abs) 0.0 {x10E3/uL} (Normal) Range: 0.0-0.1 Immature Granulocytes 0 % (Normal) Baso (Absolute) 0.0 {x10E3/uL} (Normal) Range: 0.0-0.2 Eos (Absolute) 0.4 {x10E3/uL} (Normal) Range: 0.0-0.4 Monocytes(Absolute) 0.6 {x10E3/uL} (Normal) Range: 0.1-0.9 Lymphs (Absolute) 2.0 {x10E3/uL} (Normal) Range: 0.7-3.1 Neutrophils (Absolute) 4.2 {x10E3/uL} (Normal) Range: 1.4-7.0 Basos 0 % (Normal) Eos 5 % (Normal) Monocytes 9 % (Normal) Lymphs 27 % (Normal) Neutrophils 59 % (Normal) Platelets 234 {x10E3/uL} (Normal) Range: 150-379 RDW 14.5 % (Normal) Range: 12.3-15.4 MCHC 34.0 g/dL (Normal) Range: 31.5-35.7 MCH 31.0 pg (Normal) Range: 26.6-33.0 MCV 91 fL (Normal) Range: 79-97 Hematocrit 44.7 % (Normal) Range: 34.0-46.6 Hemoglobin 15.2 g/dL (Normal) Range: 11.1-15.9 RBC 4.91 {x10E6/uL} (Normal) Range: 3.77-5.28 WBC 7.2 {x10E3/uL} (Normal) Range: 3.4-10.8 77-Nqy-233273:26 TSH (33903) Comments: 6 weeks; PATIENT NOT FASTINGPERFORMED BY: [facility]6370 [facility] [id number] TSH 2.730 {uIU/mL} (Normal) Range: 0.450-4.500 6-Rmm-556733:58 HgA1C , Office (89849) HgA1C , Office 5.6 % (Normal) Range: 4.6 - 7.1 :42 LIPID PANEL (14628) Comments: PATIENT WAS FASTINGPERFORMED BY: [facility]6370 [facility] [id number] LDL/HDL Ratio 2.4 {ratio_units} (Normal) Range: 0.0-3.2 Comments: LDL/HDL Ratio Men Women 1/2 Avg.Risk 1.0 1.5 Av g.Risk 3.6 3.2 2X Avg.Risk 6.2 5.0 3X Avg.Risk 8.0 6.1 LDL Cholesterol Calc 134 mg/dL (Abnormal) Range: 0-99 VLDL Cholesterol Cas 27 mg/dL (Normal) Range: 5-40 HDL Cholesterol 56 mg/dL (Normal) Triglycerides 133 mg/dL (Normal) Range: 0-149 Cholesterol, Total 217 mg/dL (Abnormal) Range: 100-199 :58 MICROALBUMIN: CREATININE RATIO Comments: PATIENT NOT FASTINGPERFORMED BY: [facility]6370 [facility] [id number] ([id number]) AND (19656) Microalb/Creat Ratio 5.7 {mg/g_creat} (Normal) Range: 0.0-30.0 Microalbumin, Urine 3.2 ug/mL (Normal) Creatinine, Urine 56.6 mg/dL (Normal) :42 CBC W/AUTO DIFF WBC ([id number]) Comments: PATIENT WAS FASTINGPERFORMED BY: [facility]6370 [facility] [id number] Immature Grans (Abs) 0.0 {x10E3/uL} (Normal) Range: 0.0-0.1 Immature Granulocytes 0 % (Normal) Baso (Absolute) 0.0 {x10E3/uL} (Normal) Range: 0.0-0.2 Eos (Absolute) 0.4 {x10E3/uL} (Normal) Range: 0.0-0.4 Monocytes(Absolute) 0.8 {x10E3/uL} (Normal) Range: 0.1-0.9 Lymphs (Absolute) 1.7 {x10E3/uL} (Normal) Range: 0.7-3.1 Neutrophils (Absolute) 4.7 {x10E3/uL} (Normal) Range: 1.4-7.0 Basos 1 % (Normal) Eos 5 % (Normal) Monocytes 10 % (Normal) Lymphs 22 % (Normal) Neutrophils 62 % (Normal) Platelets 231 {x10E3/uL} (Normal) Range: 150-379 RDW 14.5 % (Normal) Range: 12.3-15.4 MCHC 31.9 g/dL (Normal) Range: 31.5-35.7 MCH 30.0 pg (Normal) Range: 26.6-33.0 MCV 94 fL (Normal) Range: 79-97 Hematocrit 46.1 % (Normal) Range: 34.0-46.6 Hemoglobin 14.7 g/dL (Normal) Range: 11.1-15.9 Comments: Effective March 20, 2017 the reference interval for Hemoglobin MALES only will be changing to: Males 13-15 years: 12.6 - 17.7 Males >15 years: 13.0 - 17.7 RBC 4.90 {x10E6/uL} (Normal) Range: 3.77-5.28 WBC 7.7 {x10E3/uL} (Normal) Range: 3.4-10.8 74-Cdb-75712:42 METABOLIC PANEL, COMPREHENSIVE Comments: PATIENT WAS FASTINGPERFORMED BY: [facility]6370 [facility] [id number] ([id number]) ALT (SGPT) 14 [iU]/L (Normal) Range: 0-32 AST (SGOT) 13 [iU]/L (Normal) Range: 0-40 Alkaline Phosphatase, S 103 [iU]/L (Normal) Range: 39-117 Bilirubin, Total 0.4 mg/dL (Normal) Range: 0.0-1.2 A/G Ratio 1.8 (Normal) Range: 1.2-2.2 Globulin, Total 2.4 g/dL (Normal) Range: 1.5-4.5 Albumin, Serum 4.3 g/dL (Normal) Range: 3.5-4.7 Protein, Total, Serum 6.7 g/dL (Normal) Range: 6.0-8.5 Calcium, Serum 9.8 mg/dL (Normal) Range: 8.7-10.3 Carbon Dioxide, Total 23 mmol/L (Normal) Range: 18-29 Chloride, Serum 102 mmol/L (Normal) Range: 96-106 Potassium, Serum 4.2 mmol/L (Normal) Range: 3.5-5.2 Sodium, Serum 142 mmol/L (Normal) Range: 134-144 BUN/Creatinine Ratio 16 (Normal) Range: 12-28 eGFR If Africn Am 78 mL/min/1.73 (Normal) eGFR If NonAfricn Am 68 mL/min/1.73 (Normal) Creatinine, Serum 0.81 mg/dL (Normal) Range: 0.57-1.00 BUN 13 mg/dL (Normal) Range: 8-27 Glucose, Serum 98 mg/dL (Normal) Range: 65-99 :42 TSH (39642) Comments: PATIENT WAS FASTINGPERFORMED BY: [employer] Qkvbby3423 [facility] [id number] TSH 6.380 {uIU/mL} (Abnormal) Range: 0.450-4.500 :38 HgA1C , Office (93769) HgA1C , Office 5.4 % (Normal) Range: 4.6 - 7.1 :31 LIPOPROTEIN, BLD, BY NMR Comments: PATIENT WAS FASTINGPERFORMED BY: [facility]Co[address] [id number] BY: LabRentabilitiesSaint [facility] Hospital at Bo[facility] TownshipZxkliq7606 [facility] [id number] (07815) LP-IR Score 42 (Normal) Comments: INSULIN RESISTANCE MARKER <--Insulin Sensitive Insulin Resistant--> Percentile in Reference PopulationInsulin Resistance ScoreLP-IR Score Low 25th 50th 75th High <27 27 45 63 >63LP-IR Score is inaccurate if patient is non-fasting. .The LP-IR score is a laboratory developed i [facility] that has beenassociated with insulin resistance and diabetes risk and should beused as one component of a physician's clinical assessment. TheLP-IR score listed above has not been cleared by the [place] Food andDrug Administration. LDL Size 20.8 nm (Normal) Comments: INTERPRETATIVE INFORMATION PARTICLE CONCENTRATION AND SIZE <--Lower CVD Risk Highe r CVD Risk--> LDL AND HDL PARTICLES Percentile in Reference Population HDL-P (total) High 75th 50th 25th Low >34.9 34.9 30.5 26.7 <26.7 . Small LDL-P Low 25th 50th 75th High <117 117 527 839 >839 . LDL Size <-Large (Pattern A)-> <-Small (Pattern B)-> 23.0 20.6 20.5 19.0 Small LDL-P and LDL Size are associated with CVD risk, but not afterLDL-P is taken into account. .These assays were developed and their performance characteristicsdetermined by [employer]. These assays have not been cleared by [employer] Food and Drug Administration. The clinical utility of theselaboratory values have not been fully established. Small LDL-P 470 nmol/L (Normal) HDL-P (Total) 49.6 umol/L (Normal) Cholesterol, Total 141 mg/dL (Normal) Range: 100-199 Triglycerides 75 mg/dL (Normal) Range: 0-149 HDL-C 68 mg/dL (Normal) LDL-C 58 mg/dL (Normal) Range: 0-99 Comments: . Optimal < 100 Above optimal 100 - 129 Borderline 1 30 - 159 High 160 - 189 Very high > 189 .LDL-C is inaccurate if patient is non-fasting. LDL-P 712 nmol/L (Normal) Comments: Low < 1000 Moderate 1000 - 1299 Borderline-High 1300 - 1599 High 1600 - 2000 Very High > 2000 64-Nxb-25785:31 TSH (02095) Comments: PATIENT WAS FASTINGPERFORMED BY: [employer] [id number] BY: LabM[facility] Center6370 [facility] [id number] TSH 4.600 {uIU/mL} (Abnormal) Range: 0.450-4.500 42-Jyr-44019:31 CBC with auto diff Comments: PATIENT WAS FASTINGPERFORMED BY: [facility] [address]pe[address] [id number] BY: LabRentabilitiesSaint Clare's Hospital at Boont[facility] TownshipUyhjdv2888 [facility] [id number] ([id number]) Immature Grans (Abs) 0.0 {x10E3/uL} (Normal) Range: 0.0-0.1 Immature Granulocytes 0 % (Normal) Baso (Absolute) 0.1 {x10E3/uL} (Normal) Range: 0.0-0.2 Eos (Absolute) 0.3 {x10E3/uL} (Normal) Range: 0.0-0.4 Monocytes(Absolute) 0.7 {x10E3/uL} (Normal) Range: 0.1-0.9 Lymphs (Absolute) 2.1 {x10E3/uL} (Normal) Range: 0.7-3.1 Neutrophils (Absolute) 5.1 {x10E3/uL} (Normal) Range: 1.4-7.0 Basos 1 % (Normal) Eos 4 % (Normal) Monocytes 9 % (Normal) Lymphs 25 % (Normal) Neutrophils 61 % (Normal) Platelets 221 {x10E3/uL} (Normal) Range: 150-379 RDW 14.8 % (Normal) Range: 12.3-15.4 MCHC 33.2 g/dL (Normal) Range: 31.5-35.7 MCH 30.5 pg (Normal) Range: 26.6-33.0 MCV 92 fL (Normal) Range: 79-97 Hematocrit 42.5 % (Normal) Range: 34.0-46.6 Hemoglobin 14.1 g/dL (Normal) Range: 11.1-15.9 RBC 4.63 {x10E6/uL} (Normal) Range: 3.77-5.28 WBC 8.3 {x10E3/uL} (Normal) Range: 3.4-10.8 :31 METABOLIC PANEL, Comments: PATIENT WAS FASTINGPERFORMED BY: BN [facility] [id number] [facility] [id number] BY: CB [facility] [id number] [facility] [id number] COMPREHENSIVE ([id number]) ALT (SGPT) 15 [iU]/L (Normal) Range: 0-32 AST (SGOT) 19 [iU]/L (Normal) Range: 0-40 Alkaline Phosphatase, S 94 [iU]/L (Normal) Range: 39-117 Bilirubin, Total 0.4 mg/dL (Normal) Range: 0.0-1.2 A/G Ratio 1.6 (Normal) Range: 1.2-2.2 Globulin, Total 2.5 g/dL (Normal) Range: 1.5-4.5 Albumin, Serum 4.0 g/dL (Normal) Range: 3.5-4.7 Protein, Total, Serum 6.5 g/dL (Normal) Range: 6.0-8.5 Calcium, Serum 9.6 mg/dL (Normal) Range: 8.7-10.3 Carbon Dioxide, Total 21 mmol/L (Normal) Range: 18-29 Chloride, Serum 103 mmol/L (Normal) Range: 96-106 Potassium, Serum 4.4 mmol/L (Normal) Range: 3.5-5.2 Sodium, Serum 143 mmol/L (Normal) Range: 134-144 BUN/Creatinine Ratio 17 (Normal) Range: 12-28 eGFR If Africn Am 84 mL/min/1.73 (Normal) eGFR If NonAfricn Am 73 mL/min/1.73 (Normal) Creatinine, Serum 0.76 mg/dL (Normal) Range: 0.57-1.00 BUN 13 mg/dL (Normal) Range: 8-27 Glucose, Serum 101 mg/dL (Abnormal) Range: 65-99 [id number] Metabolic Panel, Basic Comments: PATIENT NOT FASTINGPERFORMED BY: [place] [id number] [facility] [id number] ([id number]) Calcium, Serum 9.9 mg/dL (Normal) Range: 8.7-10.3 Carbon Dioxide, Total 23 mmol/L (Normal) Range: 18-29 Chloride, Serum 100 mmol/L (Normal) Range: 96-106 Potassium, Serum 4.6 mmol/L (Normal) Range: 3.5-5.2 Sodium, Serum 141 mmol/L (Normal) Range: 134-144 BUN/Creatinine Ratio 16 (Normal) Range: 12-28 eGFR If Africn Am 78 mL/min/1.73 (Normal) eGFR If NonAfricn Am 68 mL/min/1.73 (Normal) Creatinine, Serum 0.81 mg/dL (Normal) Range: 0.57-1.00 BUN 13 mg/dL (Normal) Range: 8-27 Glucose, Serum 82 mg/dL (Normal) Range: 65-99 :48 HgA1C , Office (24795) HgA1C , Office 5.6 % (Normal) Range: 4.6 - 7.1 :56 CBC W/AUTO DIFF WBC Comments: PATIENT WAS FASTINGPERFORMED BY: [address] [id number] BY: [facility]6370 [facility] [id number] (30945) Immature Grans (Abs) 0.0 {x10E3/uL} (Normal) Range: 0.0-0.1 Immature Granulocytes 0 % (Normal) Baso (Absolute) 0.1 {x10E3/uL} (Normal) Range: 0.0-0.2 Eos (Absolute) 0.4 {x10E3/uL} (Normal) Range: 0.0-0.4 Monocytes(Absolute) 0.6 {x10E3/uL} (Normal) Range: 0.1-0.9 Lymphs (Absolute) 2.1 {x10E3/uL} (Normal) Range: 0.7-3.1 Neutrophils (Absolute) 5.0 {x10E3/uL} (Normal) Range: 1.4-7.0 Basos 1 % (Normal) Eos 5 % (Normal) Monocytes 7 % (Normal) Lymphs 26 % (Normal) Neutrophils 61 % (Normal) Platelets 219 {x10E3/uL} (Normal) Range: 150-379 RDW 15.0 % (Normal) Range: 12.3-15.4 MCHC 33.2 g/dL (Normal) Range: 31.5-35.7 MCH 30.7 pg (Normal) Range: 26.6-33.0 MCV 92 fL (Normal) Range: 79-97 Hematocrit 44.0 % (Normal) Range: 34.0-46.6 Hemoglobin 14.6 g/dL (Normal) Range: 11.1-15.9 RBC 4.76 {x10E6/uL} (Normal) Range: 3.77-5.28 WBC 8.1 {x10E3/uL} (Normal) Range: 3.4-10.8 20-Abd-01719:56 METABOLIC PANEL, Comments: PATIENT WAS FASTINGPERFORMED BY: [facility] [address] [id number] BY: [facility] Xeebtt7079 [facility] [id number] COMPREHENSIVE (01843) ALT (SGPT) 16 [iU]/L (Normal) Range: 0-32 AST (SGOT) 17 [iU]/L (Normal) Range: 0-40 Alkaline Phosphatase, S 93 [iU]/L (Normal) Range: 39-117 Bilirubin, Total 0.3 mg/dL (Normal) Range: 0.0-1.2 A/G Ratio 1.7 (Normal) Range: 1.2-2.2 Globulin, Total 2.3 g/dL (Normal) Range: 1.5-4.5 Albumin, Serum 4.0 g/dL (Normal) Range: 3.5-4.7 Protein, Total, Serum 6.3 g/dL (Normal) Range: 6.0-8.5 Calcium, Serum 9.5 mg/dL (Normal) Range: 8.7-10.3 Carbon Dioxide, Total 23 mmol/L (Normal) Range: 18-29 Chloride, Serum 102 mmol/L (Normal) Range: 96-106 Potassium, Serum 4.3 mmol/L (Normal) Range: 3.5-5.2 Sodium, Serum 143 mmol/L (Normal) Range: 134-144 BUN/Creatinine Ratio 18 (Normal) Range: 12-28 eGFR If Africn Am 95 mL/min/1.73 (Normal) eGFR If NonAfricn Am 82 mL/min/1.73 (Normal) Creatinine, Serum 0.67 mg/dL (Normal) Range: 0.57-1.00 BUN 12 mg/dL (Normal) Range: 8-27 Glucose, Serum 93 mg/dL (Normal) Range: 65-99 64-Dsj-23322:56 C-REACT PROT HIGH Comments: PATIENT WAS FASTINGPERFORMED BY: Moc[address] [id number] BY: [employer]70 [facility] [id number] SENS(hsCRP) (69869) C-Reactive Protein, Cardiac 1.83 mg/L (Normal) Range: 0.00-3.00 Comments: Relative Risk for Future Cardiovascular Event Low <1.00 Average 1.00 - 3.00 High >3.00 36-Qve-64427:56 LIPOPROTEIN, BLD, BY NMR Comments: PATIENT WAS FASTINGPERFORMED BY: [address]oc[address] [id number] BY: [facility] Terroirslin6370 [facility] [id number]; non-emergent till apt this week (45168) LP-IR Score <25 (Normal) Comments: INSULIN RESISTANCE MARKER <--Insulin Sensitive Insulin Resistant--> Percentile in Reference PopulationInsulin Resistance ScoreLP-IR Score Low 25th 50th 75th High <27 27 45 63 >63LP-IR Score is inaccurate if patient is non-fasting. .The LP-IR score is a laboratory developed i [facility] that has beenassociated with insulin resistance and diabetes risk and should beused as one component of a physician's clinical assessment. TheLP-IR score listed above has not been cleared by the [place] Food andDrug Administration. LDL Size 20.5 nm (Normal) Comments: INTERPRETATIVE INFORMATION PARTICLE CONCENTRATION AND SIZE <--Lower CVD Risk Highe r CVD Risk--> LDL AND HDL PARTICLES Percentile in Reference Population HDL-P (total) High 75th 50th 25th Low >34.9 34.9 30.5 26.7 <26.7 . Small LDL-P Low 25th 50th 75th High <117 117 527 839 >839 . LDL Size <-Large (Pattern A)-> <-Small (Pattern B)-> 23.0 20.6 20.5 19.0 Small LDL-P and LDL Size are associated with CVD risk, but not afterLDL-P is taken into account. .These assays were developed and their performance characteristicsdetermined by [employer]. These assays have not been cleared by [employer] Food and Drug Administration. The clinical utility of theselaboratory values have not been fully established. Small LDL-P 671 nmol/L (Abnormal) HDL-P (Total) 47.2 umol/L (Normal) Cholesterol, Total 153 mg/dL (Normal) Range: 100-199 Triglycerides 71 mg/dL (Normal) Range: 0-149 HDL-C 62 mg/dL (Normal) LDL-C 77 mg/dL (Normal) Range: 0-99 Comments: . Optimal < 100 Above optimal 100 - 129 Borderline 1 30 - 159 High 160 - 189 Very high > 189 .LDL-C is inaccurate if patient is non-fasting. LDL-P 1012 nmol/L (Abnormal) Comments: Low < 1000 Moderate 1000 - 1299 Borderline-High 1300 - 1599 High 1600 - 2000 Very High > 2000 37-Wls-675485:28 URINE RUI CULTURE-ORLIN COL Comments: PATIENT NOT FASTINGPERFORMED BY: [facility] Zgvpmo8108 [facility] [id number] Information: SRC:UC COUNT (44992) Result 1 NG36 (Normal) Comments: No growth in 36 - 48 hours. Urine Culture,Comprehensive Final report (Normal) 76-Emj-300471:30 NuSwab Vaginitis (VG) Comments: PATIENT NOT FASTINGPERFORMED BY: MARK LabMelissa Ville 041837 [facility] [id number] Information: SRC:VA Trich vag by SIDNEY Negative (Normal) Hali glabrata, SIDNEY Negative (Normal) Comments: This test was developed and its performance characteristics determinedby [facility]. It has not been cleared or approved by the Food and DrugAdministration. The FDA has determined that such clearance orapproval is not necessary. Hali albicans, SIDNEY Negative (Normal) Megasphaera 1 Low - 0 {Score} Comments: Calculate total score by adding the 3 individual bacterialvaginosis (BV) marker scores together. Total score isinterpreted as follows:Total score 0-1: Indicates the absence of BV.Total scor e 2: Indet (Normal) erminate for BV. Additional clinical data should be evaluated to establish a diagnosis.Total score 3-6: Indicates the presence of BV. .This test was developed and its performance characteristicsdetermined by [employer]. It has not been cleared or approvedby the Food and Drug Administration. The FDA has determinedthat such clearance or approval is not necessary. BVAB 2 Low - 0 {Score} (Normal) Atopobium vaginae Low - 0 {Score} (Normal) 2-Rbq-623912:22 CBC W/AUTO DIFF WBC Comments: PATIENT WAS FASTINGPERFORMED BY: NUBIA LabCoSaint [facility]'s Hospital at Boonton TownshipZrdwuu0577 [facility] [id number] Information: NURSE DRAW (27060) Immature Grans (Abs) 0.0 {x10E3/uL} (Normal) Range: 0.0-0.1 Immature Granulocytes 0 % (Normal) Baso (Absolute) 0.0 {x10E3/uL} (Normal) Range: 0.0-0.2 Eos (Absolute) 0.3 {x10E3/uL} (Normal) Range: 0.0-0.4 Monocytes(Absolute) 0.7 {x10E3/uL} (Normal) Range: 0.1-0.9 Lymphs (Absolute) 1.7 {x10E3/uL} (Normal) Range: 0.7-3.1 Neutrophils (Absolute) 5.0 {x10E3/uL} (Normal) Range: 1.4-7.0 Basos 0 % (Normal) Eos 4 % (Normal) Monocytes 9 % (Normal) Lymphs 22 % (Normal) Neutrophils 65 % (Normal) Platelets 237 {x10E3/uL} (Normal) Range: 150-379 RDW 14.9 % (Normal) Range: 12.3-15.4 MCHC 32.7 g/dL (Normal) Range: 31.5-35.7 MCH 30.4 pg (Normal) Range: 26.6-33.0 MCV 93 fL (Normal) Range: 79-97 Hematocrit 44.0 % (Normal) Range: 34.0-46.6 Hemoglobin 14.4 g/dL (Normal) Range: 11.1-15.9 RBC 4.74 {x10E6/uL} (Normal) Range: 3.77-5.28 WBC 7.7 {x10E3/uL} (Normal) Range: 3.4-10.8 5-Grv-407555:22 METABOLIC PANEL, COMPREHENSIVE Comments: PATIENT WAS FASTINGPERFORMED BY: [facility] Ocsmmz4001 [facility] [id number]; utvip labs- non-emergent till apt (27535) ALT (SGPT) 18 [iU]/L (Normal) Range: 0-32 AST (SGOT) 20 [iU]/L (Normal) Range: 0-40 Alkaline Phosphatase, S 101 [iU]/L (Normal) Range: 39-117 Bilirubin, Total 0.3 mg/dL (Normal) Range: 0.0-1.2 A/G Ratio 1.8 (Normal) Range: 1.1-2.5 Globulin, Total 2.4 g/dL (Normal) Range: 1.5-4.5 Albumin, Serum 4.4 g/dL (Normal) Range: 3.5-4.7 Protein, Total, Serum 6.8 g/dL (Normal) Range: 6.0-8.5 Calcium, Serum 9.6 mg/dL (Normal) Range: 8.7-10.3 Carbon Dioxide, Total 21 mmol/L (Normal) Range: 18-29 Chloride, Serum 101 mmol/L (Normal) Range: 96-106 Potassium, Serum 4.2 mmol/L (Normal) Range: 3.5-5.2 Sodium, Serum 143 mmol/L (Normal) Range: 134-144 BUN/Creatinine Ratio 21 (Normal) Range: 11-26 eGFR If Africn Am 92 mL/min/1.73 (Normal) eGFR If NonAfricn Am 80 mL/min/1.73 (Normal) Creatinine, Serum 0.71 mg/dL (Normal) Range: 0.57-1.00 BUN 15 mg/dL (Normal) Range: 8-27 Glucose, Serum 87 mg/dL (Normal) Range: 65-99 2-Rzk-268953:22 MICROALBUMIN: CREATININE RATIO Comments: PATIENT WAS FASTINGPERFORMED BY: [facility] [employer] [place] [id number] (63635) AND (76531) Microalb/Creat Ratio 7.1 {mg/g_creat} (Normal) Range: 0.0-30.0 Microalbumin, Urine 9.3 ug/mL (Normal) Creatinine, Urine 130.6 mg/dL (Normal) 05-Ogh-340507:08 Urinalysis, Office (82650) UA - LEUKOCYTE ESTERASE Negative (Normal) UA - NITRITE Negative (Normal) URINE UROBILINGN ORLIN TIMED Normal mg/dL (Normal) UA - PROTEIN Negative mg/dL (Normal) UA - PH 7 (Normal) UA - BLOOD Negative (Normal) UA - SPECIFIC GRAVITY 1.020 (Normal) UA - KETONES Negative mg/dL (Normal) UA - BILIRUBIN Negative (Normal) UA - GLUCOSE Negative (Normal) 63-Laq-877284:08 HgA1C , Office (56271) HgA1C , Office 5.7 % (Normal) Range: 4.6 - 7.1 18-Feb-20168:42 METABOLIC PANEL, COMPREHENSIVE Comments: PATIENT WAS FASTINGPERFORMED BY: [employer]70 [facility] [id number] (25397) ALT (SGPT) 16 [iU]/L (Normal) Range: 0-32 AST (SGOT) 18 [iU]/L (Normal) Range: 0-40 Alkaline Phosphatase, S 104 [iU]/L (Normal) Range: 39-117 Bilirubin, Total 0.3 mg/dL (Normal) Range: 0.0-1.2 A/G Ratio 2.0 (Normal) Range: 1.1-2.5 Globulin, Total 2.1 g/dL (Normal) Range: 1.5-4.5 Albumin, Serum 4.2 g/dL (Normal) Range: 3.5-4.7 Protein, Total, Serum 6.3 g/dL (Normal) Range: 6.0-8.5 Calcium, Serum 9.7 mg/dL (Normal) Range: 8.7-10.3 Carbon Dioxide, Total 23 mmol/L (Normal) Range: 18-29 Chloride, Serum 100 mmol/L (Normal) Range: 97-106 Potassium, Serum 4.5 mmol/L (Normal) Range: 3.5-5.2 Sodium, Serum 141 mmol/L (Normal) Range: 136-144 BUN/Creatinine Ratio 16 (Normal) Range: 11-26 eGFR If Africn Am 85 mL/min/1.73 (Normal) eGFR If NonAfricn Am 74 mL/min/1.73 (Normal) Creatinine, Serum 0.76 mg/dL (Normal) Range: 0.57-1.00 BUN 12 mg/dL (Normal) Range: 8-27 Glucose, Serum 94 mg/dL (Normal) Range: 65-99 18-Feb-20168:42 CBC W/AUTO DIFF WBC (19469) Comments: PATIENT WAS FASTINGPERFORMED BY: LabCoSaint Clare's Hospital at Boonton TownshipSmmcgg1257 [facility] [id number] Immature Grans (Abs) 0.0 {x10E3/uL} (Normal) Range: 0.0-0.1 Immature Granulocytes 0 % (Normal) Baso (Absolute) 0.0 {x10E3/uL} (Normal) Range: 0.0-0.2 Eos (Absolute) 0.4 {x10E3/uL} (Normal) Range: 0.0-0.4 Monocytes(Absolute) 0.6 {x10E3/uL} (Normal) Range: 0.1-0.9 Lymphs (Absolute) 2.2 {x10E3/uL} (Normal) Range: 0.7-3.1 Neutrophils (Absolute) 4.1 {x10E3/uL} (Normal) Range: 1.4-7.0 Basos 1 % (Normal) Eos 5 % (Normal) Monocytes 9 % (Normal) Lymphs 30 % (Normal) Neutrophils 55 % (Normal) Platelets 244 {x10E3/uL} (Normal) Range: 150-379 RDW 14.5 % (Normal) Range: 12.3-15.4 MCHC 32.9 g/dL (Normal) Range: 31.5-35.7 MCH 29.7 pg (Normal) Range: 26.6-33.0 MCV 90 fL (Normal) Range: 79-97 Hematocrit 43.2 % (Normal) Range: 34.0-46.6 Hemoglobin 14.2 g/dL (Normal) Range: 11.1-15.9 RBC 4.78 {x10E6/uL} (Normal) Range: 3.77-5.28 WBC 7.4 {x10E3/uL} (Normal) Range: 3.4-10.8 :42 TSH (19067) Comments: PATIENT WAS FASTINGPERFORMED BY: [employer]70 [facility] [id number] TSH 3.380 {uIU/mL} (Normal) Range: 0.450-4.500 :42 LIPID PANEL (10266) Comments: PATIENT WAS FASTINGPERFORMED BY: [employer]Dok [facility] [id number] LDL/HDL Ratio 2.4 {ratio_units} (Normal) Range: 0.0-3.2 Comments: LDL/HDL Ratio Men Women 1/2 Avg.Risk 1.0 1.5 Av g.Risk 3.6 3.2 2X Avg.Risk 6.2 5.0 3X Avg.Risk 8.0 6.1 LDL Cholesterol Calc 143 mg/dL (Abnormal) Range: 0-99 VLDL Cholesterol Cas 24 mg/dL (Normal) Range: 5-40 HDL Cholesterol 59 mg/dL (Normal) Comments: According to ATP-III Guidelines, HDL-C >59 mg/dL is considered anegative risk factor for CHD. Triglycerides 122 mg/dL (Normal) Range: 0-149 Cholesterol, Total 226 mg/dL (Abnormal) Range: 100-199 :42 LDH (LD) (LACTATE DEHYDROGENASE) Comments: PATIENT WAS FASTINGPERFORMED BY: Terres [facility] Terroirslin6370 [facility] [id number] (07966) LDH 201 [iU]/L (Normal) Range: 119-226 73-Bpl-580865:42 METABOLIC PANEL, COMPREHENSIVE Comments: PATIENT NOT FASTINGPERFORMED BY: GCommerceCrownpoint Healthcare FacilityHytpdv2468 [facility] [id number] (95491) ALT (SGPT) 17 [iU]/L (Normal) Range: 0-32 AST (SGOT) 19 [iU]/L (Normal) Range: 0-40 Alkaline Phosphatase, S 92 [iU]/L (Normal) Range: 39-117 Bilirubin, Total 0.4 mg/dL (Normal) Range: 0.0-1.2 A/G Ratio 2.0 (Normal) Range: 1.1-2.5 Globulin, Total 2.2 g/dL (Normal) Range: 1.5-4.5 Albumin, Serum 4.3 g/dL (Normal) Range: 3.5-4.7 Protein, Total, Serum 6.5 g/dL (Normal) Range: 6.0-8.5 Calcium, Serum 9.5 mg/dL (Normal) Range: 8.7-10.3 Carbon Dioxide, Total 21 mmol/L (Normal) Range: 18-29 Chloride, Serum 98 mmol/L (Normal) Range: 97-108 Potassium, Serum 4.2 mmol/L (Normal) Range: 3.5-5.2 Sodium, Serum 141 mmol/L (Normal) Range: 134-144 BUN/Creatinine Ratio 21 (Normal) Range: 11-26 eGFR If Africn Am 85 mL/min/1.73 (Normal) eGFR If NonAfricn Am 74 mL/min/1.73 (Normal) Creatinine, Serum 0.76 mg/dL (Normal) Range: 0.57-1.00 BUN 16 mg/dL (Normal) Range: 8-27 Glucose, Serum 75 mg/dL (Normal) Range: 65-99 37-Dnt-877145:42 SED RATE ERYTHROCYTE (52832) Comments: PATIENT NOT FASTINGPERFORMED BY: GCommerceSaint Clare's Hospital at Boonton TownshipNwkiye1595 [facility] [id number] Sedimentation Rate-Westergren 21 mm/h (Normal) Range: 0-40 :42 C-REACTIVE PROTEIN (20149) Comments: PATIENT NOT FASTINGPERFORMED BY: [facility]Co Nscuwf0824 [facility] [id number] C-Reactive Protein, Quant 1.7 mg/L (Normal) Range: 0.0-4.9 83-Fpm-382116:42 LDH (LD) (LACTATE DEHYDROGENASE) Comments: PATIENT NOT FASTINGPERFORMED BY: LabCoSaint Clare's Hospital at Boonton TownshipCqdquc3328 [facility] [id number] (88290) LDH 231 [iU]/L (Abnormal) Range: 119-226 :42 TSH (88843) Comments: PATIENT NOT FASTINGPERFORMED BY: LabMunson [facility] Center6370 [facility] [id number] TSH 2.050 {uIU/mL} (Normal) Range: 0.450-4.500 :42 CBC with auto diff Comments: PATIENT NOT FASTINGPERFORMED BY: LabMunson [facility] Center6370 [facility] [id number] Information: [id number] (86040) Immature Grans (Abs) 0.0 {x10E3/uL} (Normal) Range: 0.0-0.1 Immature Granulocytes 0 % (Normal) Baso (Absolute) 0.1 {x10E3/uL} (Normal) Range: 0.0-0.2 Eos (Absolute) 0.2 {x10E3/uL} (Normal) Range: 0.0-0.4 Monocytes(Absolute) 0.8 {x10E3/uL} (Normal) Range: 0.1-0.9 Lymphs (Absolute) 1.8 {x10E3/uL} (Normal) Range: 0.7-3.1 Neutrophils (Absolute) 5.8 {x10E3/uL} (Normal) Range: 1.4-7.0 Basos 1 % (Normal) Eos 3 % (Normal) Monocytes 9 % (Normal) Lymphs 21 % (Normal) Neutrophils 66 % (Normal) Platelets 279 {x10E3/uL} (Normal) Range: 150-379 RDW 15.5 % (Abnormal) Range: 12.3-15.4 MCHC 33.0 g/dL (Normal) Range: 31.5-35.7 MCH 30.2 pg (Normal) Range: 26.6-33.0 MCV 92 fL (Normal) Range: 79-97 Hematocrit 42.1 % (Normal) Range: 34.0-46.6 Hemoglobin 13.9 g/dL (Normal) Range: 11.1-15.9 RBC 4.60 {x10E6/uL} (Normal) Range: 3.77-5.28 WBC 8.7 {x10E3/uL} (Normal) Range: 3.4-10.8 9-Ieq-844907:20 TSH (53279) Comments: PATIENT NOT FASTINGPERFORMED BY: GCommerceSaint Clare's Hospital at Boonton TownshipSrvumn2548 [facility] [id number] TSH 1.720 {uIU/mL} (Normal) Range: 0.450-4.500 :20 CBC with auto diff Comments: PATIENT NOT FASTINGPERFORMED BY: GCommerceSaint Clare's Hospital at Boonton TownshipMezyod6581 [facility] [id number] Information: [id number] (59766) Immature Grans (Abs) 0.0 {x10E3/uL} (Normal) Range: 0.0-0.1 Immature Granulocytes 0 % (Normal) Baso (Absolute) 0.1 {x10E3/uL} (Normal) Range: 0.0-0.2 Eos (Absolute) 0.3 {x10E3/uL} (Normal) Range: 0.0-0.4 Monocytes(Absolute) 0.9 {x10E3/uL} (Normal) Range: 0.1-0.9 Lymphs (Absolute) 1.5 {x10E3/uL} (Normal) Range: 0.7-3.1 Neutrophils (Absolute) 6.1 {x10E3/uL} (Normal) Range: 1.4-7.0 Basos 1 % (Normal) Eos 4 % (Normal) Monocytes 11 % (Normal) Lymphs 17 % (Normal) Neutrophils 67 % (Normal) Platelets 328 {x10E3/uL} (Normal) Range: 150-379 RDW 15.2 % (Normal) Range: 12.3-15.4 MCHC 32.5 g/dL (Normal) Range: 31.5-35.7 MCH 30.1 pg (Normal) Range: 26.6-33.0 MCV 93 fL (Normal) Range: 79-97 Hematocrit 40.3 % (Normal) Range: 34.0-46.6 Hemoglobin 13.1 g/dL (Normal) Range: 11.1-15.9 RBC 4.35 {x10E6/uL} (Normal) Range: 3.77-5.28 WBC 8.9 {x10E3/uL} (Normal) Range: 3.4-10.8 7-Nsj-809813:20 METABOLIC PANEL, COMPREHENSIVE Comments: PATIENT NOT FASTINGPERFORMED BY: LabCoSaint Clare's Hospital at Boonton TownshipRkapyj9564 [facility] [id number] (63250) ALT (SGPT) 17 [iU]/L (Normal) Range: 0-32 AST (SGOT) 21 [iU]/L (Normal) Range: 0-40 Alkaline Phosphatase, S 91 [iU]/L (Normal) Range: 39-117 Bilirubin, Total 0.5 mg/dL (Normal) Range: 0.0-1.2 A/G Ratio 1.8 (Normal) Range: 1.1-2.5 Globulin, Total 2.2 g/dL (Normal) Range: 1.5-4.5 Albumin, Serum 3.9 g/dL (Normal) Range: 3.5-4.7 Protein, Total, Serum 6.1 g/dL (Normal) Range: 6.0-8.5 Calcium, Serum 9.4 mg/dL (Normal) Range: 8.7-10.3 Carbon Dioxide, Total 18 mmol/L (Normal) Range: 18-29 Chloride, Serum 99 mmol/L (Normal) Range: 97-108 Potassium, Serum 4.2 mmol/L (Normal) Range: 3.5-5.2 Sodium, Serum 141 mmol/L (Normal) Range: 134-144 BUN/Creatinine Ratio 18 (Normal) Range: 11-26 eGFR If Africn Am 88 mL/min/1.73 (Normal) eGFR If NonAfricn Am 76 mL/min/1.73 (Normal) Creatinine, Serum 0.74 mg/dL (Normal) Range: 0.57-1.00 BUN 13 mg/dL (Normal) Range: 8-27 Glucose, Serum 97 mg/dL (Normal) Range: 65-99 0-Ufn-674791:43 MRSA/SAID SCREEN Comments: [facility] Ebdaajquhs[address] [place], [place], [id number] MRSA+SAID SCRN See Note (Normal) Comments: MRSA/SAID SCRNS. AUREUS S. aureus NegativeMRSA MRSA Negative :29 Microscopic Examination Comments: PATIENT WAS FASTINGPERFORMED BY: NUBIA LabCoSaint Clare's Hospital at Boonton TownshipVzltwj2152 [facility] [id number] Bacteria None seen (Normal) Mucus Threads Present (Normal) Epithelial Cells (non renal) 0-10 {/hpf} (Normal) Range: 0 - 10 RBC 0-2 {/hpf} (Normal) Range: 0 - 2 WBC 0-5 {/hpf} (Normal) Range: 0 - 5 36-Vfy-701355:14 NuSwab STD (STD W/ Comments: PATIENT NOT FASTINGPERFORMED BY: LabCo[address] [id number] Information: [id number] Herpes) (68282) HSV 2 SIDNEY Negative (Normal) HSV 1 SIDNEY Negative (Normal) Neisseria gonorrhoeae, Negative (Normal) SIDNEY Chlamydia trachomatis, Negative (Normal) SIDNEY Trich vag by SIDNEY Negative (Normal) Hali glabrata, SIDNEY Negative (Normal) Comments: This test was developed and its performance characteristics determinedby [employer]. It has not been cleared or approved by the Food and DrugAdministration. The FDA has determined that such clearance orapproval is not necessary. Hali albicans, SIDNEY Negative (Normal) Megasphaera 1 Low - 0 {Score} Comments: Calculate total score by adding the 3 individual bacterialvaginosis (BV) marker scores together. Total score isinterpreted as follows:Total score 0-1: Indicates the absence of BV.Total scor e 2: Indet (Normal) erminate for BV. Additional clinical data should be evaluated to establish a diagnosis.Total score 3-6: Indicates the presence of BV. .This test was developed and its performance characteristicsdetermined by [employer]. It has not been cleared or approvedby the Food and Drug Administration. The FDA has determinedthat such clearance or approval is not necessary. BVAB 2 Low - 0 {Score} (Normal) Atopobium vaginae Low - 0 {Score} (Normal) :29 PTT (Activated Partial Comments: PATIENT WAS FASTINGPERFORMED BY: [place] 7587570 [facility] [id number] Thromboplastin Time) (22324) aPTT 30 {sec} (Normal) Range: 24-33 Comments: This test has not been validated for monitoring unfractionated heparintherapy. aPTT-based therapeutic ranges for unfractionated heparintherapy have not been established. For general guidelines onHeparin monitoring, refer to the [facility] of Services. :29 PT (Prothrobim Time) (84895) Comments: PATIENT WAS FASTINGPERFORMED BY: [facility]6370 [facility] [id number] Prothrombin Time 10.9 {sec} (Normal) Range: 9.1-12.0 INR 1.1 (Normal) Range: 0.8-1.2 Comments: Reference interval is for non-anticoagulated patients. . Suggested INR therapeutic range for Vitamin K anta gonist therapy: Standard Dose (moderate intensity therapeutic range): 2.0 - 3.0 Higher intensity therapeutic range 2.5 - 3.5 :29 URINALYSIS, W/ MICRO (83060) Comments: PATIENT WAS FASTINGPERFORMED BY: [address] [id number] Microscopic Examination See below: (Normal) Comments: Microscopic was indicated and was performed. Microscopic Examination MICRON (Normal) Comments: Microscopic follows if indicated. Nitrite, Urine Negative (Normal) Urobilinogen,Semi-Qn 1.0 mg/dL (Normal) Range: 0.2-1.0 Bilirubin Negative (Normal) Occult Blood Negative (Normal) Ketones Negative (Normal) Glucose Negative (Normal) Protein Negative (Normal) WBC Esterase Negative (Normal) Appearance Clear (Normal) Urine-Color Yellow (Normal) pH 6.0 (Normal) Range: 5.0-7.5 Specific Carlyle 1.017 (Normal) Range: 1.005-1.030 :29 CBC W/AUTO DIFF WBC Comments: PATIENT WAS FASTINGPERFORMED BY: LabMunson [facility] Center6370 [facility] [id number] Information: [id number] ([id number]) Immature Grans (Abs) 0.0 {x10E3/uL} (Normal) Range: 0.0-0.1 Immature Granulocytes 0 % (Normal) Baso (Absolute) 0.0 {x10E3/uL} (Normal) Range: 0.0-0.2 Eos (Absolute) 0.3 {x10E3/uL} (Normal) Range: 0.0-0.4 Monocytes(Absolute) 0.6 {x10E3/uL} (Normal) Range: 0.1-0.9 Lymphs (Absolute) 1.6 {x10E3/uL} (Normal) Range: 0.7-3.1 Neutrophils (Absolute) 3.5 {x10E3/uL} (Normal) Range: 1.4-7.0 Basos 1 % (Normal) Eos 5 % (Normal) Monocytes 10 % (Normal) Lymphs 27 % (Normal) Neutrophils 57 % (Normal) Platelets 238 {x10E3/uL} (Normal) Range: 150-379 RDW 14.5 % (Normal) Range: 12.3-15.4 MCHC 32.6 g/dL (Normal) Range: 31.5-35.7 MCH 30.1 pg (Normal) Range: 26.6-33.0 MCV 92 fL (Normal) Range: 79-97 Hematocrit 42.3 % (Normal) Range: 34.0-46.6 Hemoglobin 13.8 g/dL (Normal) Range: 11.1-15.9 RBC 4.59 {x10E6/uL} (Normal) Range: 3.77-5.28 WBC 6.1 {x10E3/uL} (Normal) Range: 3.4-10.8 [id number] METABOLIC PANEL, COMPREHENSIVE Comments: PATIENT WAS FASTINGPERFORMED BY: [facility] [facility] [id number]; non- emergent till apt ([id number]) ALT (SGPT) 17 [iU]/L (Normal) Range: 0-32 AST (SGOT) 20 [iU]/L (Normal) Range: 0-40 Alkaline Phosphatase, S 97 [iU]/L (Normal) Range: 39-117 Bilirubin, Total 0.3 mg/dL (Normal) Range: 0.0-1.2 A/G Ratio 1.7 (Normal) Range: 1.1-2.5 Globulin, Total 2.4 g/dL (Normal) Range: 1.5-4.5 Albumin, Serum 4.0 g/dL (Normal) Range: 3.5-4.7 Protein, Total, Serum 6.4 g/dL (Normal) Range: 6.0-8.5 Calcium, Serum 9.6 mg/dL (Normal) Range: 8.7-10.3 Carbon Dioxide, Total 22 mmol/L (Normal) Range: 18-29 Chloride, Serum 102 mmol/L (Normal) Range: 97-108 Potassium, Serum 4.1 mmol/L (Normal) Range: 3.5-5.2 Sodium, Serum 143 mmol/L (Normal) Range: 134-144 BUN/Creatinine Ratio 18 (Normal) Range: 11-26 eGFR If Africn Am 76 mL/min/1.73 (Normal) eGFR If NonAfricn Am 66 mL/min/1.73 (Normal) Creatinine, Serum 0.83 mg/dL (Normal) Range: 0.57-1.00 BUN 15 mg/dL (Normal) Range: 8-27 Glucose, Serum 89 mg/dL (Normal) Range: 65-99 74-Skv-589189:0 COLON BIOPSY (CHOOSE See Note (Normal) Comments: [facility] [address] [facility]. [place], [place], [address] 5 SITE) Comments: Patient: AYAD BANUELOS : 1935 (79/F) Acct Num: [id number] Phys: NikolailylaCesario Unit Num: [id number] Loc: LABSPEC Specimen: [id number] Received: 05/14/151599 Spec Type: C OLON BX TISSUES TISSUES: GROSS DESCRIPTION Received is one container labeled with the patient name and designated proximaltransverse colon. The specimen consists of two irregular f ragments of light lan soft tissue that in aggregate measure 0.3 x 0.2 x 0.1 cm. The specimen is totally submitted in one cassette. / AM:ch 05/15/15 TC:1 CPT: 51113 HEADER OPERATION: Colonoscopy with biopsies PRE-OP DIAGNOSIS: H/O polyps TISSUE SUBMITTED: Proximal transverse colon, hepatic flexure biopsy, rule out adenoma MICROSCOPIC DESCRIPTION Slides are reviewed. MICROSCOPIC DI AGNOSIS Polyp transverse colon, hepatic flexure, biopsy: Fragments of tubular adenoma. SJ:karen 05/18/15 Signed Bobby Tirso 05/18/15 <si gnature on file> 45-Ojd-[id number]:32 Hemoglobin Glyclated (HGB Comments: PATIENT NOT FASTINGPERFORMED BY: GCommerceSaint [facility] Hospital at Boonton TownshipIkcaoh0243 [facility] [id number] Information: [id number] A1C) (66786) Hemoglobin A1c 5.4 % (Normal) Range: 4.8-5.6 Comments: . Pre-diabetes: 5.7 - 6.4 Diabetes: >6.4 Glycemic control for adults with diabetes: <7.0 73-Ivo-068794:32 TSH (06758) Comments: PATIENT NOT FASTINGPERFORMED BY: [employer] Rzlkvj8902 [facility] [id number] TSH 2.700 {uIU/mL} (Normal) Range: 0.450-4.500 05-Uxx-717602:32 T4, FREE (THYROXINE) (72296) Comments: PATIENT NOT FASTINGPERFORMED BY: GCommerceSaint Clare's Hospital at Boonton TownshipXqpksk9570 [facility] [id number] T4,Free(Direct) 1.64 ng/dL (Normal) Range: 0.82-1.77 91-Slk-963571:32 T3, FREE (TRIDOTHYRONINE) (36087) Comments: PATIENT NOT FASTINGPERFORMED BY: [facility].ukMunson [facility] Center[address] [place] [address] [id number] Triiodothyronine,Free,Serum 2.9 pg/mL (Normal) Range: 2.0-4.4 :06 LIPID PANEL (09645) Comments: PATIENT WAS FASTINGPERFORMED BY: [facility]6370 [facility] [id number] LDL/HDL Ratio 2.0 {ratio_units} (Normal) Range: 0.0-3.2 Comments: LDL/HDL Ratio Men Women 1/2 Avg.Risk 1.0 1.5 Av g.Risk 3.6 3.2 2X Avg.Risk 6.2 5.0 3X Avg.Risk 8.0 6.1 LDL Cholesterol Calc 133 mg/dL (Abnormal) Range: 0-99 Comments: Please note reference interval change VLDL Cholesterol Cas 16 mg/dL (Normal) Range: 5-40 HDL Cholesterol 67 mg/dL (Normal) Comments: According to ATP-III Guidelines, HDL-C >59 mg/dL is considered anegative risk factor for CHD. Triglycerides 80 mg/dL (Normal) Range: 0-149 Comments: Please note reference interval change Cholesterol, Total 216 mg/dL (Abnormal) Range: 100-199 Comments: Please note reference interval change; ADDENDA: non-emergent till apt :06 Vitamin D Hydroxy (59692) Comments: PATIENT WAS FASTINGPERFORMED BY: [facility].ukMunson [facility] Center6370 [facility] [id number] Vitamin D, 25-Hydroxy 44.7 ng/mL (Normal) Range: 30.0-100.0 Comments: Vitamin D deficiency has been defined by the [place] ofMedicine and an Endocrine Society practice guideline as alevel of serum 25-OH vitamin D less than 20 ng/mL (1,2).The Endocrine Society went on to further define vitamin Dinsufficiency as a level between 21 and 29 ng/mL (2).1. IOM ([place] of Medicine). 2010. Dietary reference intakes for calcium and D. [place]: The National Academies Press.2. Candace MF, Ronak NC, Andrew OCONNELL, et al. Evaluation, treatment, and prevention of vitamin D deficiency: an Endocrine Society clinical practice guideline. JCEM. 2010; 96(7):1911-30. :06 METABOLIC PANEL, Comments: PATIENT WAS FASTINGPERFORMED BY: [facility]6370 [facility] [id number] Information: [id number] COMPREHENSIVE (48227) ALT (SGPT) 18 [iU]/L (Normal) Range: 0-32 AST (SGOT) 15 [iU]/L (Normal) Range: 0-40 Alkaline Phosphatase, S 88 [iU]/L (Normal) Range: 39-117 Bilirubin, Total 0.4 mg/dL (Normal) Range: 0.0-1.2 A/G Ratio 1.8 (Normal) Range: 1.1-2.5 Globulin, Total 2.3 g/dL (Normal) Range: 1.5-4.5 Albumin, Serum 4.1 g/dL (Normal) Range: 3.5-4.7 Protein, Total, Serum 6.4 g/dL (Normal) Range: 6.0-8.5 Calcium, Serum 9.6 mg/dL (Normal) Range: 8.7-10.3 Carbon Dioxide, Total 24 mmol/L (Normal) Range: 18-29 Chloride, Serum 103 mmol/L (Normal) Range: 97-108 Potassium, Serum 4.6 mmol/L (Normal) Range: 3.5-5.2 Sodium, Serum 142 mmol/L (Normal) Range: 134-144 BUN/Creatinine Ratio 18 (Normal) Range: 11-26 eGFR If Africn Am 82 mL/min/1.73 (Normal) eGFR If NonAfricn Am 71 mL/min/1.73 (Normal) Creatinine, Serum 0.79 mg/dL (Normal) Range: 0.57-1.00 BUN 14 mg/dL (Normal) Range: 8-27 Glucose, Serum 81 mg/dL (Normal) Range: 65-99 0-Ybw-298951:42 CBC With Differential/Platelet Comments: PATIENT NOT FASTINGPERFORMED BY: [facility] Adpnbe2758 [facility] [id number] Information: [id number] Immature Grans (Abs) 0.0 {x10E3/uL} (Normal) Range: 0.0-0.1 Immature Granulocytes 0 % (Normal) Baso (Absolute) 0.0 {x10E3/uL} (Normal) Range: 0.0-0.2 Eos (Absolute) 0.3 {x10E3/uL} (Normal) Range: 0.0-0.4 Monocytes(Absolute) 0.7 {x10E3/uL} (Normal) Range: 0.1-0.9 Lymphs (Absolute) 1.9 {x10E3/uL} (Normal) Range: 0.7-3.1 Neutrophils (Absolute) 6.1 {x10E3/uL} (Normal) Range: 1.4-7.0 Basos 0 % (Normal) Eos 3 % (Normal) Monocytes 8 % (Normal) Lymphs 21 % (Normal) Neutrophils 68 % (Normal) Platelets 237 {x10E3/uL} (Normal) Range: 150-379 RDW 14.6 % (Normal) Range: 12.3-15.4 MCHC 32.9 g/dL (Normal) Range: 31.5-35.7 MCH 29.7 pg (Normal) Range: 26.6-33.0 MCV 90 fL (Normal) Range: 79-97 Hematocrit 41.0 % (Normal) Range: 34.0-46.6 Hemoglobin 13.5 g/dL (Normal) Range: 11.1-15.9 RBC 4.55 {x10E6/uL} (Normal) Range: 3.77-5.28 WBC 9.0 {x10E3/uL} (Normal) Range: 3.4-10.8 :36 HgA1C , Office (77601) HgA1C , Office 5.8 % (Normal) Range: 4.6 - 7.1 :25 Comp. Metabolic Panel (14) Comments: PATIENT WAS FASTINGPERFORMED BY: LabMunson [facility] Center6370 [facility] [id number] Information: [id number] ALT (SGPT) 14 [iU]/L (Normal) Range: 0-32 AST (SGOT) 17 [iU]/L (Normal) Range: 0-40 Alkaline Phosphatase, S 92 [iU]/L (Normal) Range: 39-117 Bilirubin, Total 0.4 mg/dL (Normal) Range: 0.0-1.2 A/G Ratio 1.8 (Normal) Range: 1.1-2.5 Globulin, Total 2.3 g/dL (Normal) Range: 1.5-4.5 Albumin, Serum 4.2 g/dL (Normal) Range: 3.5-4.7 Protein, Total, Serum 6.5 g/dL (Normal) Range: 6.0-8.5 Calcium, Serum 9.7 mg/dL (Normal) Range: 8.7-10.3 Carbon Dioxide, Total 20 mmol/L (Normal) Range: 18-29 Chloride, Serum 103 mmol/L (Normal) Range: 97-108 Potassium, Serum 4.1 mmol/L (Normal) Range: 3.5-5.2 Sodium, Serum 143 mmol/L (Normal) Range: 134-144 BUN/Creatinine Ratio 19 (Normal) Range: 11-26 eGFR If Africn Am 83 mL/min/1.73 (Normal) eGFR If NonAfricn Am 72 mL/min/1.73 (Normal) Creatinine, Serum 0.78 mg/dL (Normal) Range: 0.57-1.00 BUN 15 mg/dL (Normal) Range: 8-27 Glucose, Serum 96 mg/dL (Normal) Range: 65-99 28-Elm-10394:25 Lipid Panel With LDL/HDL Comments: PATIENT WAS FASTINGPERFORMED BY: [facility] [id number] Ratio LDL/HDL Ratio 1.7 {ratio_units} Range: 0.0-3.2 (Normal) Comments: LDL/HDL Ratio Men Women 1/2 Avg.Risk 1.0 1.5 Av g.Risk 3.6 3.2 2X Avg.Risk 6.2 5.0 3X Avg.Risk 8.0 6.1 LDL Cholesterol Calc 116 mg/dL (Abnormal) Range: 0-99 VLDL Cholesterol Cas 17 mg/dL (Normal) Range: 5-40 HDL Cholesterol 68 mg/dL (Normal) Comments: According to ATP-III Guidelines, HDL-C >59 mg/dL is considered anegative risk factor for CHD. Triglycerides 84 mg/dL (Normal) Range: 0-149 Cholesterol, Total 201 mg/dL (Abnormal) Range: 100-199 13-Oct-2014 TSH 3.080 {uIU/mL} (Normal) Comments: PATIENT WAS FASTINGPERFORMED BY: [employer]70 HQ plusCaroMont Health [id number] 8:25 Range: 0.450-4.500 3-Gem-381300:56 CBC W/Diff, Automated Comments: Test performed at:[facility] [address] [place] [address] Absolute Lymph 1.88 {X10_3/ul} (Normal) Range: 0.83-4.51 Absolute Neut 3.6 {X10_3/uL} (Normal) Range: 2.0-7.7 IM GRAN % 0.200 % (Normal) Range: 0.0-0.9 Comments: IG% - Immature Granulocytes (promyelocytes, myelocytes andmetamyelocytes) > 1% indicates that a LEFT SHIFT is Present. BASO% 0.8 % (Normal) Range: 0-1 EO% 5.3 % (Abnormal) Range: 0-5 MONO% 12.2 % (Abnormal) Range: 0-10 LY% 28.3 % (Normal) Range: 19-41 NEUT% 53.2 % (Normal) Range: 47-70 MPV 10.8 fL (Normal) Range: 6.2-12.0 PLT 376 K/mm3 (Normal) Range: 150-450 RDW SD 51.0 fL (Abnormal) Range: 35.1-43.9 RDW CV 14.8 % (Abnormal) Range: 11.6-14.6 MCHC 31.5 {g/gl} (Abnormal) Range: 32-36 MCH 29.9 pg (Normal) Range: 27.0-32.0 MCV 95.0 fL (Normal) Range: 81-99 HCT 40.0 % (Normal) Range: 37-47 HGB 12.6 g/dL (Normal) Range: 12.0-15.0 RBC 4.21 {M/mm3} (Normal) Range: 4.2-5.4 WBC 6.7 K/mm3 (Normal) Range: 4.4-11.0 9-Drj-630571:56 Comprehensive Metabolic Profil Comments: Test performed at:[facility] [address] [place] [address] GAP 8 (Normal) Range: 5-15 CO2 24.0 mmol/L (Normal) Range: 21.0-32.0 CL 104 mmol/L (Normal) Range: 98-107 K 3.7 mmol/L (Normal) Range: 3.5-5.1 NA 136 mmol/L (Normal) Range: 136-145 T BILI 0.40 mg/dL (Normal) Range: 0.00-4.00 ALT 28 U/L (Normal) Range: 12-78 ALK P 108 U/L (Normal) Range: 50-136 AST 24 U/L (Normal) Range: 15-37 CA 8.7 mg/dL (Normal) Range: 8.5-10.1 A/G 1.0 {RATIO} (Normal) Range: 0.9-2.4 GLOB 3.4 g/dL (Normal) Range: 2.7-4.2 ALB 3.3 g/dL (Abnormal) Range: 3.4-5.0 T PROT 6.7 g/dL (Normal) Range: 6.4-8.2 BUN/CRE 12.9 {RATIO} (Normal) Range: 10-20 CREAT,SERUM 0.7 mg/dL (Normal) Range: 0.6-1.0 BUN 9 mg/dL (Normal) Range: 7-18 GLU 85 mg/dL (Normal) Range: 70-110 36-Kfh-404295:51 MRSA/SAID SCREEN Comments: Test performed at:[facility] [address] [place], [place] [address] MRSA+SAID SCRN See Note (Normal) Comments: MRSA/SAID SCRNS. AUREUS S. aureus NegativeMRSA MRSA Negative 28-Sht-07826:32 URINE RUI CULTURE-IDENTIFICATN Comments: PATIENT NOT FASTINGPERFORMED BY: [employer] ROOOMERS [facility] [id number] Information: [id number] (24085) Result 1 MUG (Normal) Comments: Mixed urogenital [id number] Colonies/mL Urine Culture,Comprehensive Final report (Normal) :39 Microscopic Examination Comments: PATIENT WAS FASTINGPERFORMED BY: [employer] ROOOMERS [facility] [id number] Bacteria Few (Normal) Mucus Threads Present (Normal) Epithelial Cells (non renal) 0-10 {/hpf} (Normal) Range: 0 - 10 RBC 0-2 {/hpf} (Normal) Range: 0 - 2 WBC 6-10 {/hpf} (Abnormal) Range: 0 - 5 :39 PTT (Activated Partial Comments: PATIENT WAS FASTINGPERFORMED BY: [place] 7587570 [facility] [id number] Thromboplastin Time) (29636) aPTT 29 {sec} (Normal) Range: 24-33 Comments: This test has not been validated for monitoring unfractionated heparintherapy. aPTT-based therapeutic ranges for unfractionated heparintherapy have not been established. For general guidelines onHeparin monitoring, refer to the [facility] Directory of Services. :39 PT (Prothrobim Time) (92178) Comments: PATIENT WAS FASTINGPERFORMED BY: [place] 7587570 [facility] [id number] Prothrombin Time 11.2 {sec} (Normal) Range: 9.1-12.0 INR 1.1 (Normal) Range: 0.8-1.2 Comments: Reference interval is for non-anticoagulated patients. . Suggested INR therapeutic range for Vitamin K anta gonist therapy: Standard Dose (moderate intensity therapeutic range): 2.0 - 3.0 Higher intensity therapeutic range 2.5 - 3.5 :39 TSH (61025) Comments: PATIENT WAS FASTINGPERFORMED BY: [facility]6370 [facility] [id number] TSH 4.360 {uIU/mL} (Normal) Range: 0.450-4.500 :39 CBC W/AUTO DIFF WBC Comments: PATIENT WAS FASTINGPERFORMED BY: [place] 7587570 [facility] [id number] Information: [id number] (18757) Immature Grans (Abs) 0.0 {x10E3/uL} (Normal) Range: 0.0-0.1 Immature Granulocytes 0 % (Normal) Baso (Absolute) 0.0 {x10E3/uL} (Normal) Range: 0.0-0.2 Eos (Absolute) 0.3 {x10E3/uL} (Normal) Range: 0.0-0.4 Monocytes(Absolute) 0.5 {x10E3/uL} (Normal) Range: 0.1-0.9 Lymphs (Absolute) 2.0 {x10E3/uL} (Normal) Range: 0.7-3.1 Neutrophils (Absolute) 4.1 {x10E3/uL} (Normal) Range: 1.4-7.0 Basos 1 % (Normal) Eos 4 % (Normal) Monocytes 8 % (Normal) Lymphs 29 % (Normal) Neutrophils 58 % (Normal) Platelets 265 {x10E3/uL} (Normal) Range: 150-379 RDW 14.7 % (Normal) Range: 12.3-15.4 MCHC 32.7 g/dL (Normal) Range: 31.5-35.7 MCH 30.0 pg (Normal) Range: 26.6-33.0 MCV 92 fL (Normal) Range: 79-97 Hematocrit 44.7 % (Normal) Range: 34.0-46.6 Hemoglobin 14.6 g/dL (Normal) Range: 11.1-15.9 RBC 4.87 {x10E6/uL} (Normal) Range: 3.77-5.28 WBC 6.9 {x10E3/uL} (Normal) Range: 3.4-10.8 :39 METABOLIC PANEL, COMPREHENSIVE Comments: PATIENT WAS FASTINGPERFORMED BY: LabCoSaint Clare's Hospital at Boonton TownshipKezydn7956 [facility] [id number] (79029) ALT (SGPT) 17 [iU]/L (Normal) Range: 0-32 AST (SGOT) 17 [iU]/L (Normal) Range: 0-40 Alkaline Phosphatase, S 83 [iU]/L (Normal) Range: 39-117 Bilirubin, Total 0.2 mg/dL (Normal) Range: 0.0-1.2 A/G Ratio 2.2 (Normal) Range: 1.1-2.5 Globulin, Total 2.0 g/dL (Normal) Range: 1.5-4.5 Albumin, Serum 4.4 g/dL (Normal) Range: 3.5-4.8 Protein, Total, Serum 6.4 g/dL (Normal) Range: 6.0-8.5 Calcium, Serum 9.6 mg/dL (Normal) Range: 8.7-10.3 Carbon Dioxide, Total 23 mmol/L (Normal) Range: 18-29 Chloride, Serum 102 mmol/L (Normal) Range: 97-108 Potassium, Serum 4.4 mmol/L (Normal) Range: 3.5-5.2 Sodium, Serum 143 mmol/L (Normal) Range: 134-144 BUN/Creatinine Ratio 17 (Normal) Range: 11-26 eGFR If Africn Am 71 mL/min/1.73 (Normal) eGFR If NonAfricn Am 62 mL/min/1.73 (Normal) Creatinine, Serum 0.89 mg/dL (Normal) Range: 0.57-1.00 BUN 15 mg/dL (Normal) Range: 8-27 Glucose, Serum 90 mg/dL (Normal) Range: 65-99 :39 LIPID PANEL (73189) Comments: PATIENT WAS FASTINGPERFORMED BY: [facility] [id number] LDL/HDL Ratio 1.8 {ratio_units} (Normal) Range: 0.0-3.2 Comments: LDL/HDL Ratio Men Women 1/2 Avg.Risk 1.0 1.5 Av g.Risk 3.6 3.2 2X Avg.Risk 6.2 5.0 3X Avg.Risk 8.0 6.1 LDL Cholesterol Calc 127 mg/dL (Abnormal) Range: 0-99 VLDL Cholesterol Cas 17 mg/dL (Normal) Range: 5-40 HDL Cholesterol 72 mg/dL (Normal) Comments: According to ATP-III Guidelines, HDL-C >59 mg/dL is considered anegative risk factor for CHD. Triglycerides 86 mg/dL (Normal) Range: 0-149 Cholesterol, Total 216 mg/dL (Abnormal) Range: 100-199 :39 URINALYSIS, W/ MICRO (21162) Comments: PATIENT WAS FASTINGPERFORMED BY: [facility] [id number] Microscopic Examination See below: (Normal) Comments: Microscopic was indicated and was performed. Nitrite, Urine Negative (Normal) Urobilinogen,Semi-Qn 0.2 mg/dL (Normal) Range: 0.0-1.9 Bilirubin Negative (Normal) Occult Blood Negative (Normal) Ketones Negative (Normal) Glucose Negative (Normal) Protein Negative (Normal) WBC Esterase 2+ (Abnormal) Appearance Clear (Normal) Urine-Color Yellow (Normal) pH 6.0 (Normal) Range: 5.0-7.5 Specific Carlyle 1.016 (Normal) Range: 1.005-1.030 9-Odh-895424:12 HgA1C , Office (09098) HgA1C , Office 5.9 % (Normal) Range: 4.6 - 7.1 :18 CBC WITH MANUAL DIFF Comments: PATIENT WAS FASTINGPERFORMED BY: LabCoSaint [facility] Hospital at Boont[facility] TownshipSymsnk3612 [facility] [id number] Information: [id number] (38742) Immature Grans (Abs) 0.0 {x10E3/uL} (Normal) Range: 0.0-0.1 Immature Granulocytes 0 % (Normal) Baso (Absolute) 0.0 {x10E3/uL} (Normal) Range: 0.0-0.2 Eos (Absolute) 0.3 {x10E3/uL} (Normal) Range: 0.0-0.4 Monocytes(Absolute) 0.6 {x10E3/uL} (Normal) Range: 0.1-0.9 Lymphs (Absolute) 1.7 {x10E3/uL} (Normal) Range: 0.7-3.1 Neutrophils (Absolute) 3.6 {x10E3/uL} (Normal) Range: 1.4-7.0 Basos 1 % (Normal) Eos 5 % (Normal) Monocytes 10 % (Normal) Lymphs 27 % (Normal) Neutrophils 57 % (Normal) Platelets 203 {x10E3/uL} (Normal) Range: 150-379 RDW 14.1 % (Normal) Range: 12.3-15.4 MCHC 33.2 g/dL (Normal) Range: 31.5-35.7 MCH 30.3 pg (Normal) Range: 26.6-33.0 MCV 92 fL (Normal) Range: 79-97 Hematocrit 42.8 % (Normal) Range: 34.0-46.6 Hemoglobin 14.2 g/dL (Normal) Range: 11.1-15.9 RBC 4.68 {x10E6/uL} (Normal) Range: 3.77-5.28 WBC 6.3 {x10E3/uL} (Normal) Range: 3.4-10.8 :18 LIPID PANEL (06631) Comments: PATIENT WAS FASTINGPERFORMED BY: [facility]6370 [facility] [id number] LDL/HDL Ratio 1.4 {ratio_units} (Normal) Range: 0.0-3.2 Comments: LDL/HDL Ratio Men Women 1/2 Avg.Risk 1.0 1.5 Av g.Risk 3.6 3.2 2X Avg.Risk 6.2 5.0 3X Avg.Risk 8.0 6.1 LDL Cholesterol Calc 90 mg/dL (Normal) Range: 0-99 VLDL Cholesterol Cas 17 mg/dL (Normal) Range: 5-40 HDL Cholesterol 66 mg/dL (Normal) Comments: According to ATP-III Guidelines, HDL-C >59 mg/dL is considered anegative risk factor for CHD. Triglycerides 85 mg/dL (Normal) Range: 0-149 Cholesterol, Total 173 mg/dL (Normal) Range: 100-199 :18 METABOLIC PANEL, COMPREHENSIVE Comments: PATIENT WAS FASTINGPERFORMED BY: GCommerceSaint Clare's Hospital at Boonton TownshipRpfljb1589 [facility] [id number] (07166) ALT (SGPT) 17 [iU]/L (Normal) Range: 0-32 AST (SGOT) 19 [iU]/L (Normal) Range: 0-40 Alkaline Phosphatase, S 81 [iU]/L (Normal) Range: 39-117 Bilirubin, Total 0.3 mg/dL (Normal) Range: 0.0-1.2 A/G Ratio 1.9 (Normal) Range: 1.1-2.5 Globulin, Total 2.2 g/dL (Normal) Range: 1.5-4.5 Albumin, Serum 4.2 g/dL (Normal) Range: 3.5-4.8 Protein, Total, Serum 6.4 g/dL (Normal) Range: 6.0-8.5 Calcium, Serum 9.4 mg/dL (Normal) Range: 8.6-10.2 Carbon Dioxide, Total 24 mmol/L (Normal) Range: 18-29 Chloride, Serum 103 mmol/L (Normal) Range: 97-108 Potassium, Serum 4.3 mmol/L (Normal) Range: 3.5-5.2 Sodium, Serum 141 mmol/L (Normal) Range: 134-144 BUN/Creatinine Ratio 21 (Normal) Range: 11-26 eGFR If Africn Am 94 mL/min/1.73 (Normal) eGFR If NonAfricn Am 81 mL/min/1.73 (Normal) Creatinine, Serum 0.71 mg/dL (Normal) Range: 0.57-1.00 BUN 15 mg/dL (Normal) Range: 8-27 Glucose, Serum 87 mg/dL (Normal) Range: 65-99 :18 MICROALBUMIN: CREATININE RATIO Comments: PATIENT WAS FASTINGPERFORMED BY: [employer] [facility] CancerCaroMont Health [id number] (10952) AND (49918) Microalb/Creat Ratio 3.6 {mg/g_creat} Range: 0.0-30.0 (Normal) Microalbumin, Urine 4.5 ug/mL (Normal) Range: 0.0-17.0 Creatinine, Urine 123.4 mg/dL (Normal) Range: 15.0-278.0 GGT 22 [iU]/L (Normal) Comments: PATIENT NOT FASTINGPERFORMED BY: [employer] Drqdhl9461 [facility] [id number] :17 Range: 0-60 :17 TSH (68832) Comments: PATIENT NOT FASTINGPERFORMED BY: [employer] ROOOMERS [facility] [id number] TSH 2.730 {uIU/mL} (Normal) Range: 0.450-4.500 :17 CBC WITH MANUAL DIFF Comments: PATIENT NOT FASTINGPERFORMED BY: [employer] InfotrieveChildren's [facility] [id number] Information: [id number] (12464) Immature Grans (Abs) 0.0 {x10E3/uL} (Normal) Range: 0.0-0.1 Immature Granulocytes 0 % (Normal) Range: 0-2 Baso (Absolute) 0.0 {x10E3/uL} (Normal) Range: 0.0-0.2 Eos (Absolute) 0.3 {x10E3/uL} (Normal) Range: 0.0-0.4 Monocytes(Absolute) 0.4 {x10E3/uL} (Normal) Range: 0.1-0.9 Lymphs (Absolute) 1.7 {x10E3/uL} (Normal) Range: 0.7-3.1 Neutrophils (Absolute) 3.3 {x10E3/uL} (Normal) Range: 1.4-7.0 Basos 1 % (Normal) Range: 0-3 Eos 6 % (Abnormal) Range: 0-5 Monocytes 6 % (Normal) Range: 4-12 Lymphs 29 % (Normal) Range: 14-46 Neutrophils 58 % (Normal) Range: 40-74 Platelets 233 {x10E3/uL} (Normal) Range: 150-379 RDW 14.6 % (Normal) Range: 12.3-15.4 MCHC 33.6 g/dL (Normal) Range: 31.5-35.7 MCH 30.7 pg (Normal) Range: 26.6-33.0 MCV 92 fL (Normal) Range: 79-97 Hematocrit 42.9 % (Normal) Range: 34.0-46.6 Hemoglobin 14.4 g/dL (Normal) Range: 11.1-15.9 RBC 4.69 {x10E6/uL} (Normal) Range: 3.77-5.28 WBC 5.6 {x10E3/uL} (Normal) Range: 3.4-10.8 19-Nov-20138:17 METABOLIC PANEL, COMPREHENSIVE Comments: PATIENT NOT FASTINGPERFORMED BY: LabCoSaint [facility] Hospital at Boonton TownshipLcmpdn5027 [facility] [id number] (89142) ALT (SGPT) 18 [iU]/L (Normal) Range: 0-32 AST (SGOT) 16 [iU]/L (Normal) Range: 0-40 Alkaline Phosphatase, S 89 [iU]/L (Normal) Range: 39-117 Bilirubin, Total 0.4 mg/dL (Normal) Range: 0.0-1.2 A/G Ratio 1.9 (Normal) Range: 1.1-2.5 Globulin, Total 2.2 g/dL (Normal) Range: 1.5-4.5 Albumin, Serum 4.2 g/dL (Normal) Range: 3.5-4.8 Protein, Total, Serum 6.4 g/dL (Normal) Range: 6.0-8.5 Calcium, Serum 9.9 mg/dL (Normal) Range: 8.6-10.2 Carbon Dioxide, Total 23 mmol/L (Normal) Range: 18-29 Chloride, Serum 104 mmol/L (Normal) Range: 97-108 Potassium, Serum 4.3 mmol/L (Normal) Range: 3.5-5.2 Sodium, Serum 143 mmol/L (Normal) Range: 134-144 BUN/Creatinine Ratio 23 (Normal) Range: 11-26 eGFR If Africn Am 94 mL/min/1.73 (Normal) eGFR If NonAfricn Am 81 mL/min/1.73 (Normal) Creatinine, Serum 0.71 mg/dL (Normal) Range: 0.57-1.00 BUN 16 mg/dL (Normal) Range: 8-27 Glucose, Serum 87 mg/dL (Normal) Range: 65-99 :17 LIPID PANEL (21182) Comments: PATIENT NOT FASTINGPERFORMED BY: [id number] [facility] [id number] LDL/HDL Ratio 1.0 {ratio_units} (Normal) Range: 0.0-3.2 LDL Cholesterol Calc 74 mg/dL (Normal) Range: 0-99 VLDL Cholesterol Cas 14 mg/dL (Normal) Range: 5-40 HDL Cholesterol 72 mg/dL (Normal) Comments: According to ATP-III Guidelines, HDL-C >59 mg/dL is considered anegative risk factor for CHD. Triglycerides 68 mg/dL (Normal) Range: 0-149 Cholesterol, Total 160 mg/dL (Normal) Range: 100-199 :17 HgA1C , Office ([id number]) Comments: PATIENT NOT FASTINGPERFORMED BY: [employer] [id number] Glycohemoglobin (GHb), Total 6.5 % (Normal) Comments: Diabetic Adult <9.0 Healthy Adult 3.9 - 7.3 (DCCT/NGSP) Current ADA guide lines recommend a treatment goal of <7.0% HgbA1c for diabetic patients, which corresponds to a <9.0% Glycohemoglobin result with this method. :36 METABOLIC PANEL, Comments: PATIENT NOT FASTINGPERFORMED BY: Kira Talent [facility] [id number] [facility] [id number] Information: [id number], [id number] COMPREHENSIVE ([id number]) ALT (SGPT) 20 [iU]/L (Normal) Range: 0-32 AST (SGOT) 16 [iU]/L (Normal) Range: 0-40 Alkaline Phosphatase, S 77 [iU]/L (Normal) Range: 39-117 Bilirubin, Total 0.3 mg/dL (Normal) Range: 0.0-1.2 A/G Ratio 2.0 (Normal) Range: 1.1-2.5 Globulin, Total 2.1 g/dL (Normal) Range: 1.5-4.5 Albumin, Serum 4.2 g/dL (Normal) Range: 3.5-4.8 Protein, Total, Serum 6.3 g/dL (Normal) Range: 6.0-8.5 Calcium, Serum 9.8 mg/dL (Normal) Range: 8.6-10.2 Carbon Dioxide, Total 20 mmol/L (Normal) Range: 19-28 Chloride, Serum 104 mmol/L (Normal) Range: 97-108 Potassium, Serum 4.3 mmol/L (Normal) Range: 3.5-5.2 Sodium, Serum 141 mmol/L (Normal) Range: 134-144 BUN/Creatinine Ratio 24 (Normal) Range: 11-26 eGFR If Africn Am 97 mL/min/1.73 (Normal) eGFR If NonAfricn Am 84 mL/min/1.73 (Normal) Creatinine, Serum 0.67 mg/dL (Normal) Range: 0.57-1.00 BUN 16 mg/dL (Normal) Range: 8-27 Glucose, Serum 137 mg/dL (Abnormal) Range: 65-99 :36 MICROALBUMIN: CREATININE RATIO Comments: PATIENT NOT FASTINGPERFORMED BY: [facility] [id number] [facility] [id number] ([id number]) AND ([id number]) Microalb/Creat Ratio 7.0 {mg/g_creat} (Normal) Range: 0.0-30.0 Microalbumin, Urine 8.3 ug/mL (Normal) Range: 0.0-17.0 Creatinine, Urine 118.0 mg/dL (Normal) Range: 15.0-278.0 :36 TSH ([id number]) Comments: PATIENT NOT FASTINGPERFORMED BY: [employer] [id number] [facility] [id number] TSH 0.516 {uIU/mL} (Normal) Range: 0.450-4.500 :36 LIPID PANEL ([id number]) Comments: PATIENT NOT FASTINGPERFORMED BY: [facility] [id number] [facility] [id number] LDL/HDL Ratio 1.0 {ratio_units} (Normal) Range: 0.0-3.2 LDL Cholesterol Calc 80 mg/dL (Normal) Range: 0-99 VLDL Cholesterol Cas 8 mg/dL (Normal) Range: 5-40 HDL Cholesterol 77 mg/dL (Normal) Comments: According to ATP-III Guidelines, HDL-C >59 mg/dL is considered anegative risk factor for CHD. Cholesterol, Total 165 mg/dL (Normal) Range: 100-199 Triglycerides 40 mg/dL (Normal) Range: 0-149 :09 HgA1C , Office (22239) HgA1C , Office 5.8 % (Normal) Range: 4.6 - 7.1 :22 Vitamin D Hydroxy (66371) Comments: PATIENT WAS FASTINGPERFORMED BY: [facility] Evvmjv1897 [facility] [id number] Vitamin D, 25-Hydroxy 63.6 ng/mL (Normal) Range: 30.0-100.0 Comments: Vitamin D deficiency has been defined by the [place] [employer] and an Endocrine Society practice guideline as alevel of serum 25-OH vitamin D less than 20 ng/mL (1,2).The Endocrine Society went on to further define vitamin Dinsufficiency as a level between 21 and 29 ng/mL (2).1. IOM ([place] [employer]). 2010. Dietary reference intakes for calcium and D. [place]: The National Academies Press.2. Candace MF, Ronak NC, Andrew OCONNELL, et al. Evaluation, treatment, and prevention of vitamin D deficiency: an Endocrine Society clinical practice guideline. JCEM. 2010; 96(7):2111-30. :22 CBC WITH MANUAL DIFF Comments: PATIENT WAS FASTINGPERFORMED BY: LabCoSaint [facility] TownshipXubavn9479 [facility] [id number] Information: [id number] ([id number]) Immature Grans (Abs) 0.0 {x10E3/uL} (Normal) Range: 0.0-0.1 Immature Granulocytes 0 % (Normal) Range: 0-2 Baso (Absolute) 0.0 {x10E3/uL} (Normal) Range: 0.0-0.2 Eos (Absolute) 0.2 {x10E3/uL} (Normal) Range: 0.0-0.4 Monocytes(Absolute) 0.6 {x10E3/uL} (Normal) Range: 0.1-0.9 Lymphs (Absolute) 2.0 {x10E3/uL} (Normal) Range: 0.7-3.1 Neutrophils (Absolute) 3.5 {x10E3/uL} (Normal) Range: 1.4-7.0 Basos 0 % (Normal) Range: 0-3 Eos 3 % (Normal) Range: 0-5 Monocytes 10 % (Normal) Range: 4-12 Lymphs 32 % (Normal) Range: 14-46 Neutrophils 55 % (Normal) Range: 40-74 Platelets 229 {x10E3/uL} (Normal) Range: 155-379 RDW 14.7 % (Normal) Range: 12.3-15.4 MCHC 33.0 g/dL (Normal) Range: 31.5-35.7 MCH 29.6 pg (Normal) Range: 26.6-33.0 MCV 90 fL (Normal) Range: 79-97 Hematocrit 41.2 % (Normal) Range: 34.0-46.6 Hemoglobin 13.6 g/dL (Normal) Range: 11.1-15.9 RBC 4.60 {x10E6/uL} (Normal) Range: 3.77-5.28 WBC 6.4 {x10E3/uL} (Normal) Range: 3.4-10.8 :22 METABOLIC PANEL, COMPREHENSIVE Comments: PATIENT WAS FASTINGPERFORMED BY: [employer]70 [facility] [id number] ([id number]) ALT (SGPT) 22 [iU]/L (Normal) Range: 0-32 AST (SGOT) 21 [iU]/L (Normal) Range: 0-40 Alkaline Phosphatase, S 83 [iU]/L (Normal) Range: 39-117 Bilirubin, Total 0.4 mg/dL (Normal) Range: 0.0-1.2 A/G Ratio 1.6 (Normal) Range: 1.1-2.5 Globulin, Total 2.5 g/dL (Normal) Range: 1.5-4.5 Albumin, Serum 3.9 g/dL (Normal) Range: 3.5-4.8 Protein, Total, Serum 6.4 g/dL (Normal) Range: 6.0-8.5 Calcium, Serum 9.5 mg/dL (Normal) Range: 8.6-10.2 Carbon Dioxide, Total 22 mmol/L (Normal) Range: 19-28 Chloride, Serum 104 mmol/L (Normal) Range: 97-108 Potassium, Serum 3.8 mmol/L (Normal) Range: 3.5-5.2 Sodium, Serum 140 mmol/L (Normal) Range: 134-144 BUN/Creatinine Ratio 19 (Normal) Range: 11-26 eGFR If Africn Am 88 mL/min/1.73 (Normal) Creatinine, Serum 0.75 mg/dL (Normal) Range: 0.57-1.00 eGFR If NonAfricn Am 77 mL/min/1.73 (Normal) BUN 14 mg/dL (Normal) Range: 8-27 Glucose, Serum 93 mg/dL (Normal) Range: 65-99 :22 LIPID PANEL (55221) Comments: PATIENT WAS FASTINGPERFORMED BY: [employer] Oidvvb5203 [facility] [id number] LDL/HDL Ratio 1.0 {ratio_units} (Normal) Range: 0.0-3.2 LDL Cholesterol Calc 63 mg/dL (Normal) Range: 0-99 VLDL Cholesterol Cas 16 mg/dL (Normal) Range: 5-40 Cholesterol, Total 141 mg/dL (Normal) Range: 100-199 HDL Cholesterol 62 mg/dL (Normal) Comments: According to ATP-III Guidelines, HDL-C >59 mg/dL is considered anegative risk factor for CHD. Triglycerides 81 mg/dL (Normal) Range: 0-149 54-Neg-48660:48 HgA1C , Office (00458) HgA1C , Office 5.6 % (Normal) Range: 4.6 - 7.1 64-Ubs-701039:00 DEXA BONE DENSITY STUDY (HP) Radiology Report See Note (Normal) Comments: PROCEDURE: DUAL ENERGY X-RAY ABSORPTIOMETRY / DXA REASON FOR EXAM: Female, 77 years old. Osteoporosis. TECHNIQUE: Bone Mineral Density (BMD) measurements of lumbar spine andbilateral hips were obt ained. COMPARISON: Comparison is made with prior study dated February 22, 2011. FINDINGS: Lumbar Spine (L1-L4): g/cm2 (0.754) / T-score (-3.4) / Z- score (-1.6) Left Femur Total: g/cm2 (0.860) / T-score (-1.2) / Z-score (0.7)Left Femoral Neck: g/cm2 (0.708) / T-score (-2.4) / Z-score (-0.3)Right Femur Total: g/cm2 (0.766) / T-score (-1.9) / Z-score (0.0)Right Femoral Neck: g/cm2 ( 0.671) / T-score (-2.6) / Z-score (-0.6) The T-Scores on the most recent prior examination were: Lumbar Spine (L1-L4): which represents an improvement of 6.3%.Left Femur Total: which repre sents a worsening of 0.1%.Right Femur Total: which represents a worsening of 3.2%. IMPRESSION:The patient is considered osteoporotic, as outlined above, according toWorld Health Organization (WHO) criteria. Fracture risk is high. Reference Information:The T-score is the number of standard deviations above or below thestandard which is normal for young adults at their peak bone mineraldensity. Th e World Health Organization (WHO) interprets the T-scores asfollows: Above -1 Normal bone densityBetween -1 and -2.5 OsteopeniaEqual to / or below -2.5 Osteoporosis As a practical clinical guideline, osteopenia may be graded as follows:Mild -1 through -1.5Moderate -1.6 through -2.0Severe -2.1 through -2.4 The Z-score is the number of standard deviations above or below age-matchedcontr ols. A Z-score of less than -1.5 would be considered abnormal. References:1. NIH Osteoporosis and Related Bone Diseases http://www.osteo.org2. International Society for Clinical Densitometry http://ww w.iscd.org3. National Osteoporosis Foundation http://www.nof.org Signed:Blaine Victor M.D.August 09, 2012 at 11:04:35 AM [phone] Signed GP/GP If you are the referring physici an and would like to consult with theradiologist who provided this interpretation, please contact Marty Murphy at [phone]. If this radiologist is unavailable, youwill be directed to anot her radiologist to assist. If you are a patient with a question regarding this report, pleasecontactyour referring physician directly. Professional Interpretation Provided By: [employer], Phone , These documents contain legally protected and confidential healthinformation intended only for the use of the individual or entity namedabove. If you are not the intended recipi ent, you are hereby notifiedthatany disclosure, copying, distribution, or other use of these documents isstrictly prohibited. If you have received this information in error,pleasenotify the sender immed iately and arrange for the return or destructionofthese documents. Dictated on 08/09/12 1012 by Joni Victor MDranscribed on 08/09/12 1109 by ITS IMPORTSign by Blaine Victor MD on 1110 Sign by: Blaine Victor MD :18 CBC WITH MANUAL DIFF Comments: PATIENT WAS FASTINGPERFORMED BY: [employer] Qpcaee9098 [facility] [id number] Information: [id number] (15976) Immature Grans (Abs) 0.0 {x10E3/uL} (Normal) Range: 0.0-0.1 Immature Granulocytes 0 % (Normal) Range: 0-2 Baso (Absolute) 0.0 {x10E3/uL} (Normal) Range: 0.0-0.2 Eos (Absolute) 0.2 {x10E3/uL} (Normal) Range: 0.0-0.4 Lymphs (Absolute) 1.7 {x10E3/uL} (Normal) Range: 0.7-4.5 Monocytes(Absolute) 0.9 {x10E3/uL} (Normal) Range: 0.1-1.0 Neutrophils (Absolute) 8.8 {x10E3/uL} (Abnormal) Range: 1.8-7.8 Basos 0 % (Normal) Range: 0-3 Eos 2 % (Normal) Range: 0-7 Monocytes 7 % (Normal) Range: 4-13 Lymphs 15 % (Normal) Range: 14-46 Neutrophils 76 % (Abnormal) Range: 40-74 Platelets 238 {x10E3/uL} (Normal) Range: 140-415 RDW 15.2 % (Normal) Range: 12.3-15.4 MCHC 32.5 g/dL (Normal) Range: 31.5-35.7 MCH 29.5 pg (Normal) Range: 26.6-33.0 MCV 91 fL (Normal) Range: 79-97 Hematocrit 43.1 % (Normal) Range: 34.0-46.6 Hemoglobin 14.0 g/dL (Normal) Range: 11.1-15.9 RBC 4.74 {x10E6/uL} (Normal) Range: 3.77-5.28 WBC 11.6 {x10E3/uL} (Abnormal) Range: 4.0-10.5 :18 METABOLIC PANEL, COMPREHENSIVE Comments: PATIENT WAS FASTINGPERFORMED BY: LabRentabilitiesSaint Clare's Hospital at Bo[facility]on TownshipAwaysv8461 [facility] [id number] ([id number]) ALT (SGPT) 21 [iU]/L (Normal) Range: 0-32 AST (SGOT) 19 [iU]/L (Normal) Range: 0-40 Alkaline Phosphatase, S 91 [iU]/L (Normal) Range: 45-108 Bilirubin, Total 0.5 mg/dL (Normal) Range: 0.0-1.2 A/G Ratio 1.6 (Normal) Range: 1.1-2.5 Globulin, Total 2.4 g/dL (Normal) Range: 1.5-4.5 Albumin, Serum 3.9 g/dL (Normal) Range: 3.5-4.8 Protein, Total, Serum 6.3 g/dL (Normal) Range: 6.0-8.5 Calcium, Serum 9.6 mg/dL (Normal) Range: 8.6-10.2 Carbon Dioxide, Total 21 mmol/L (Normal) Range: 19-28 Chloride, Serum 102 mmol/L (Normal) Range: 97-108 Potassium, Serum 4.1 mmol/L (Normal) Range: 3.5-5.2 Sodium, Serum 141 mmol/L (Normal) Range: 134-144 BUN/Creatinine Ratio 21 (Normal) Range: 11-26 eGFR If Africn Am 86 mL/min/1.73 (Normal) eGFR If NonAfricn Am 74 mL/min/1.73 (Normal) Creatinine, Serum 0.77 mg/dL (Normal) Range: 0.57-1.00 BUN 16 mg/dL (Normal) Range: 8-27 Glucose, Serum 92 mg/dL (Normal) Range: 65-99 93-Keg-45716:18 LIPID PANEL (34588) Comments: PATIENT WAS FASTINGPERFORMED BY: LabCoSaint Clare's Hospital at Boont[facility] TownshipZlsury3849 [facility] [id number] LDL/HDL Ratio 1.2 {ratio_units} (Normal) Range: 0.0-3.2 LDL Cholesterol Calc 78 mg/dL (Normal) Range: 0-99 VLDL Cholesterol Cas 13 mg/dL (Normal) Range: 5-40 HDL Cholesterol 65 mg/dL (Normal) Comments: According to ATP-III Guidelines, HDL-C >59 mg/dL is considered anegative risk factor for CHD. Cholesterol, Total 156 mg/dL (Normal) Range: 100-199 Triglycerides 66 mg/dL (Normal) Range: 0-149 :18 Vitamin D Hydroxy (29292) Comments: PATIENT WAS FASTINGPERFORMED BY: Slurp.co.ukMunson Medical Center6370 [facility] [id number] Vitamin D, 25-Hydroxy 38.5 ng/mL (Normal) Range: 30.0-100.0 Comments: Vitamin D deficiency has been defined by the [place] of[facility] and an Endocrine Society practice guideline as alevel of serum 25-OH vitamin D less than 20 ng/mL (1,2).The Endocrine Society went on to further define vitamin Dinsufficiency as a level between 21 and 29 ng/mL (2).1. IOM ([place] [employer]). 2010. Dietary reference intakes for calcium and D. [place]: The National Academies Press.2. Candace MF, Ronak CARRASCO, Andrew OCONNELL, et al. Evaluation, treatment, and prevention of vitamin D deficiency: an Endocrine Society clinical practice guideline. JCEM. 2010; 96(7):1911-30. :40 HgA1C , Office (74980) HgA1C , Office 5.9 % (Normal) Range: 4.6 - 7.1 :55 CBC WITH MANUAL DIFF Comments: PATIENT WAS FASTINGPERFORMED BY: [facility]p.[facility].ukHannibal Regional Hospital Bgpzmd8626 [facility] [id number] Information: [id number] (77155) Immature Grans (Abs) 0.0 {x10E3/uL} (Normal) Range: 0.0-0.1 Immature Granulocytes 0 % (Normal) Range: 0-2 Baso (Absolute) 0.1 {x10E3/uL} (Normal) Range: 0.0-0.2 Eos (Absolute) 0.4 {x10E3/uL} (Normal) Range: 0.0-0.4 Monocytes(Absolute) 0.5 {x10E3/uL} (Normal) Range: 0.1-1.0 Lymphs (Absolute) 1.8 {x10E3/uL} (Normal) Range: 0.7-4.5 Neutrophils (Absolute) 3.4 {x10E3/uL} (Normal) Range: 1.8-7.8 Basos 1 % (Normal) Range: 0-3 Eos 6 % (Normal) Range: 0-7 Monocytes 8 % (Normal) Range: 4-13 Lymphs 30 % (Normal) Range: 14-46 Neutrophils 55 % (Normal) Range: 40-74 Platelets 252 {x10E3/uL} (Normal) Range: 140-415 RDW 14.8 % (Normal) Range: 12.3-15.4 MCHC 33.0 g/dL (Normal) Range: 31.5-35.7 MCH 29.7 pg (Normal) Range: 26.6-33.0 MCV 90 fL (Normal) Range: 79-97 Hematocrit 38.8 % (Normal) Range: 34.0-46.6 Hemoglobin 12.8 g/dL (Normal) Range: 11.1-15.9 RBC 4.31 {x10E6/uL} (Normal) Range: 3.77-5.28 WBC 6.2 {x10E3/uL} (Normal) Range: 4.0-10.5 56-Yoq-82897:55 METABOLIC PANEL, COMPREHENSIVE Comments: PATIENT WAS FASTINGPERFORMED BY: LabCoSaint Clare's Hospital at Boont[facility] TownshipOnfdey2904 [facility] [id number] ([id number]) ALT (SGPT) 17 [iU]/L (Normal) Range: 0-32 AST (SGOT) 12 [iU]/L (Normal) Range: 0-40 Alkaline Phosphatase, S 82 [iU]/L (Normal) Range: 25-165 Bilirubin, Total 0.4 mg/dL (Normal) Range: 0.0-1.2 A/G Ratio 1.7 (Normal) Range: 1.1-2.5 Globulin, Total 2.3 g/dL (Normal) Range: 1.5-4.5 Albumin, Serum 4.0 g/dL (Normal) Range: 3.5-4.8 Protein, Total, Serum 6.3 g/dL (Normal) Range: 6.0-8.5 Calcium, Serum 9.5 mg/dL (Normal) Range: 8.6-10.2 Carbon Dioxide, Total 23 mmol/L (Normal) Range: 20-32 Chloride, Serum 105 mmol/L (Normal) Range: 97-108 Potassium, Serum 4.2 mmol/L (Normal) Range: 3.5-5.2 Sodium, Serum 142 mmol/L (Normal) Range: 134-144 BUN/Creatinine Ratio 20 (Normal) Range: 11-26 eGFR If Africn Am 90 mL/min/1.73 (Normal) eGFR If NonAfricn Am 78 mL/min/1.73 (Normal) Creatinine, Serum 0.74 mg/dL (Normal) Range: 0.57-1.00 BUN 15 mg/dL (Normal) Range: 8-27 Glucose, Serum 101 mg/dL (Abnormal) Range: 65-99 04-Obo-10052:55 LIPID PANEL (53609) Comments: PATIENT WAS FASTINGPERFORMED BY: Double FusionSaint Clare's Hospital at Boonton TownshipMeoris[address] [place] [address] [id number] LDL/HDL Ratio 1.6 {ratio_units} (Normal) Range: 0.0-3.2 LDL Cholesterol Calc 111 mg/dL (Abnormal) Range: 0-99 VLDL Cholesterol Cas 11 mg/dL (Normal) Range: 5-40 HDL Cholesterol 68 mg/dL (Normal) Comments: According to ATP-III Guidelines, HDL-C >59 mg/dL is considered anegative risk factor for CHD. Triglycerides 54 mg/dL (Normal) Range: 0-149 Cholesterol, Total 190 mg/dL (Normal) Range: 100-199 57-Cvg-873970:22 TSH ([id number]) Comments: PATIENT NOT FASTINGPERFORMED BY: Double FusionSaint Clare's Hospital at Boont[facility] TownshipEcdnzh5311 [facility] [id number] Information: [id number] TSH 2.500 {uIU/mL} (Normal) Range: 0.450-4.500 11-Ymk-723764:24 BILAT SCRN DIGITAL & CAD Radiology Report See Note (Normal) Comments: MAMMOGRAPHY - BILATERAL SCREENING REASON FOR EXAM: Female, 76 years old. Routine annual screeningexamination. PERTINENT HISTORY: Non-contributory. TECHNIQUE: Digital examination. Med iolateral ob lique (MLO) andcraniocaudad (CC) views of both breasts were obtained. CAD: CAD wasperformed on this study. COMPARISON: Comparison is made with prior studies dated March 02nd February 26, 2010 . FINDINGS:The breast composition is almost entirely fatty replaced. There are no dominant masses or suspicious calcifications. There is astable 5-mm well defined nodule in the deep midportion of the l eftbreast.This most likely represents a small lymph node. This is unchanged. No other significant abnormalities are identified. There has been nosignificant change since the prior study. IMPRESSION:St able bilateral screening mammogram. Yearly follow-up recommended. (A) ASSESSMENT CATEGORY:BIRADS Category 2: Benign finding(s). A letter regarding these resultswill be sent to the patient by the [facility] within 30 days. Approximately 10% of breast cancers are not detected by mammography. Anormal mammogram should not delay biopsy of a clinically suspiciousabnormality. Signed:Brooks MarkMarch 05, 2012 at 2:48:08 PM [phone] Signed GP/GP If you are the referring physician and would like to consult with theradiologist who provided this interpretation, please co ntact Marty Murphy at [phone]. If this radiologist is unavailable, youwill be directed to another radiologist to assist. If you are a patient with a question regarding this report, pleas econtactyour referring physician directly. Professional Interpretation Provided By: [employer], Phone , These documents contain legally protected and confidential healthin formation intended only for the use of the individual or entity namedabove. If you are not the intended recipient, you are hereby notifiedthatany disclosure, copying, distribution, or other use of these documents isstrictly prohibited. If you have received this information in error,pleasenotify the sender immediately and arrange for the return or destructionofthese documents. Dictated on 03/05/12 1 425 by Klever Victor MDscribed on 03/05/12 1452 by ITS IMPORTSign by Blaine Victor MD on 03/05/12 1453 Sign by: Blaine Victor MD 60-Bmv-23089:43 LIPID PANEL ([id number]) Comments: PATIENT WAS FASTINGPERFORMED BY: LabCoSaint Clare's Hospital at Boont[facility] TownshipAecuql5875 [facility] [id number] LDL/HDL Ratio 2.0 {ratio_units} (Normal) Range: 0.0-3.2 LDL Cholesterol Calc 139 mg/dL (Abnormal) Range: 0-99 VLDL Cholesterol Cas 11 mg/dL (Normal) Range: 5-40 HDL Cholesterol 71 mg/dL (Normal) Comments: According to ATP-III Guidelines, HDL-C >59 mg/dL is considered anegative risk factor for CHD. Triglycerides 56 mg/dL (Normal) Range: 0-149 Cholesterol, Total 221 mg/dL (Abnormal) Range: 100-199 :43 TSH (40802) Comments: PATIENT WAS FASTINGPERFORMED BY: GCommerceSaint Clare's Hospital at Boont[facility] TownshipUvamlc4092 [facility] [id number] TSH 5.020 {uIU/mL} (Abnormal) Range: 0.450-4.500 :43 METABOLIC PANEL, Comments: PATIENT WAS FASTINGPERFORMED BY: GCommerceSaint Clare's Hospital at Boont[facility] TownshipCsfplj8710 [facility] [id number] Information: [id number] COMPREHENSIVE (27978) ALT (SGPT) 14 [iU]/L (Normal) Range: 0-32 AST (SGOT) 14 [iU]/L (Normal) Range: 0-40 Alkaline Phosphatase, S 92 [iU]/L (Normal) Range: 25-165 Bilirubin, Total 0.3 mg/dL (Normal) Range: 0.0-1.2 A/G Ratio 1.6 (Normal) Range: 1.1-2.5 Globulin, Total 2.4 g/dL (Normal) Range: 1.5-4.5 Albumin, Serum 3.9 g/dL (Normal) Range: 3.5-4.8 Protein, Total, Serum 6.3 g/dL (Normal) Range: 6.0-8.5 Calcium, Serum 9.8 mg/dL (Normal) Range: 8.6-10.2 Carbon Dioxide, Total 23 mmol/L (Normal) Range: 20-32 Chloride, Serum 104 mmol/L (Normal) Range: 97-108 Potassium, Serum 4.1 mmol/L (Normal) Range: 3.5-5.2 Sodium, Serum 138 mmol/L (Normal) Range: 134-144 BUN/Creatinine Ratio 22 (Normal) Range: 11-26 eGFR If Africn Am 97 mL/min/1.73 (Normal) eGFR If NonAfricn Am 84 mL/min/1.73 (Normal) Creatinine, Serum 0.69 mg/dL (Normal) Range: 0.57-1.00 BUN 15 mg/dL (Normal) Range: 8-27 Glucose, Serum 99 mg/dL (Normal) Range: 65-99 :32 LIPID PANEL (41902) Comments: PATIENT WAS FASTINGPERFORMED BY: [employer] Xkwtpo3511 [facility] [id number] LDL/HDL Ratio 1.4 {ratio_units} (Normal) Range: 0.0-3.2 LDL Cholesterol Calc 90 mg/dL (Normal) Range: 0-99 Comments: Please note reference interval change VLDL Cholesterol Cas 18 mg/dL (Normal) Range: 5-40 HDL Cholesterol 63 mg/dL (Normal) Comments: According to ATP-III Guidelines, HDL-C >59 mg/dL is considered anegative risk factor for CHD. Triglycerides 91 mg/dL (Normal) Range: 0-149 Comments: Please note reference interval change Cholesterol, Total 171 mg/dL (Normal) Range: 100-199 Comments: Please note reference interval change :32 METABOLIC PANEL, Comments: PATIENT WAS FASTINGPERFORMED BY: Double FusionSaint Clare's Hospital at Boont[facility] TownshipScranh0474 [facility] [id number] Information: [id number] COMPREHENSIVE (29714) ALT (SGPT) 19 [iU]/L (Normal) Range: 0-40 AST (SGOT) 20 [iU]/L (Normal) Range: 0-40 Alkaline Phosphatase, S 97 [iU]/L (Normal) Range: 25-165 Bilirubin, Total 0.2 mg/dL (Normal) Range: 0.0-1.2 A/G Ratio 1.3 (Normal) Range: 1.1-2.5 Globulin, Total 2.8 g/dL (Normal) Range: 1.5-4.5 Albumin, Serum 3.7 g/dL (Normal) Range: 3.5-4.8 Protein, Total, Serum 6.5 g/dL (Normal) Range: 6.0-8.5 Calcium, Serum 9.3 mg/dL (Normal) Range: 8.6-10.2 Carbon Dioxide, Total 21 mmol/L (Normal) Range: 20-32 Chloride, Serum 105 mmol/L (Normal) Range: 97-108 Potassium, Serum 4.3 mmol/L (Normal) Range: 3.5-5.2 Sodium, Serum 141 mmol/L (Normal) Range: 134-144 BUN/Creatinine Ratio 20 (Normal) Range: 11-26 eGFR If Africn Am 100 mL/min/1.73 (Normal) eGFR If NonAfricn Am 86 mL/min/1.73 (Normal) Creatinine, Serum 0.64 mg/dL (Normal) Range: 0.57-1.00 BUN 13 mg/dL (Normal) Range: 8-27 Glucose, Serum 96 mg/dL (Normal) Range: 65-99 71-Zfe-22199:32 TSH (28523) Comments: PATIENT WAS FASTINGPERFORMED BY: [facility]6370 [facility] [id number] TSH 1.700 {uIU/mL} (Normal) Range: 0.450-4.500 22-Tiq-019437:30 PET/CT TUMOR,BASE-THIGH,INIT Radiology Report See Note (Normal) Comments: EXAM: FDG PET/CT INDICATIONS: A 76-year-old female with history of pulmonary nodularitymost recently described on CT of the chest report dated 09/09/11. COMPARISON EXAMINATION: CT of the chest date d 09/09/11. INDEX LESION: Right lower posterior hemithorax pulmonary parenchyma.SIZE: 20.8 mm x 15.4 mm (frame 231).SUV: 6.0.INTERPRETATION: Fulfills quantitative criteria for viable neoplasm,definitive histopathologic analysis is recommended. TECHNIQUE: Following the intravenous administration of 16.6 mCi of F-18deoxyglucose, multiplanar image acquisitions of the neck, chest, abdomenand pelvis to [place] of mid thigh, obtained at one hour postradiopharmaceutical administration contemporaneously interpreted with thecurrent CT of the neck, chest, abdomen and pelvis to level of mid thigh,dated 09/26/[address] of the chest dated 09/09/11reveal: FINDINGS:A nodular focus of increased glucose metabolism is defined in the rightlower posterior hemithorax pulmonary parenchyma in the distr ibution ofthesuperior segment of the right lower lobe. The calculated maximumstandarduptake value is 6.0. The maximal axial diameter of the partiallycavitatedparenchymal density-mass on review of CT o f the thorax dated 09/26/11 isapproximately 20.8 mm (transverse) x 15.4 mm (AP). Normal physiologic distribution of the radiopharmaceutical is apparent inthe hepatic (3.0*) and splenic parenchyma, both renal units, bladder andvisualized intestinal tract. There is uniform distribution of theradiopharmaceutical concentration compared on the cerebellar hemispheresand cerebral cortex. Diffuse intestinal tract activity is notedthroughoutall four quadrants of the abdominal-pelvic retroperitoneum, mesenteryconsistent with normal physiologic distribution of theradiopharmaceutical.Pertinent CT findings are as follows. CHEST: Centrilobularemphysematous changes are defined in the bilateral upper lung zones.Atherosclerotic calcification is defined in the thoracic aorta withoutevidence of dilatation, aneur ysm formation. Coronary arterialcalcification is observed. Scattered axillary and mediastinal softtissueis non-glucose avid. ABDOMEN AND PELVIS: Atheroscleroticcalcificationis demonstrated in the thoracic aorta. The maximal axial diameter of theabdominal aorta is 28.1 mm. Abdominal-pelvic arterial calcification isobserved. Dystrophic calcifications are noted within the lower pelviscontiguous to the uterus. SKELETAL: Degenerative changes defined in thecervical, thoracic and lumbar spine demonstrate no evidence for glucosehypermetabolism. Diffuse osteopenia is noted. IMPRESSION:1. The in crease in glucose metabolism noted in the right lower posteriorhemithorax pulmonary parenchyma fulfills quantitative criteria for viableneoplasm with single-point technique. Definitive histopathologica nalysisis recommended. (Antonio et al, Annals of Internal Medicine, 138:724, 2003). 2. No other quantitatively significant hypermetabolic abnormalities arenoted. Gordy Ahuja D.O. EST* (Diane hernandez al, J Nucl Med 50: 122S, 2009) Signed:Gordy Ahuja M.D.September 28, 2011 at 9:58:07 AM EDTElectronically Signed RB/LM Professional Interpretation Provided By: [facility], , To consult with a radiologist regarding this report, please call our [id number] line @ Dictated on 09/26/11 1141 by Gordy Ahuja DOTran scribed on 09/29/11 1350 by ITS IMPORTSign by Gordy Ahuja DO on 09/29/11 1351 Sign by: Gordy Ahuja DO 74-Ocd-65349:28 CHEST WITH CONTRAST Radiology Report See Note (Normal) Comments: PROCEDURE: CT CHEST WITH CONTRAST REASON FOR EXAM: Female, 76 years old. Pneumonia 6 weeks ago, I hasbeentreated with antibiotics. Prior smoker with long history, hypertension. TECHNIQUE: High re solution transaxial imaging was performed followingintravenous administration of 100 ml of Isovue 300 contrast material.Multiplanar coronal and sagittal images were reformatted. COMPARISON: Chest, Jul. Chest CT February 09, 2007 None. FINDINGS: The lungs are emphysematous with small cysts and subpleural blebs. Thereis minimal interstitial fibrotic change. In the superior segment of the right lower lobe there is a 2 x 2 x 1.5 cm lobulated posterior mass withsharp margins, and stranding extending to the adjacent posterior pleura.The mass shows no calcification or cavitation. There is n o other mass,airspace process, or cavitary lesion. There is no pleural effusion or pleural mass. The heart size is at least upper normal. Normal pericardium. Normal mediastinum. Normal hilar regions. Normal enhancement of thepulmonary arteries. Normal enhanced thoracic aorta and visualized greatvessels. There are degenerative changes in the thoracic spine with minimal loss ofheight of mid thoracic vertebral bodies. There is mild hepatic steatosis. The included upper abdomen is otherwiseunremarkable. There is no focal hepatic or adrenal mass or adenopathy. IMPRESSION:No acute or residual pneumon itis. COPD. Right lower lobe superior segment mass. Given the long smoking history,carcinoma is likely. Hepatic steatosis. Signed:Adalid Rich M.D.September 09, 2011 at 5:58:03 PM EDTElectronically Lor d PF/PF Professional Interpretation Provided By: [facility], , To consult with a radiologist regarding this report, please call our [id number] t line @ Dictated on 09/09/11950 by Adalid Rich MDTranscribed on 09/09/111801 by ITS IMPORTSign by Adalid Rich MD on 09/09/111802 Sign by: Adalid Rich MD 55-Hxt-68196:15 CBC WITH MANUAL DIFF Comments: PATIENT WAS FASTINGPERFORMED BY: [facility] [facility] [id number] Information: [id number] ([id number]) Hematology Comments: Note: (Normal) Comments: Verified by microscopic examination. Immature Grans (Abs) 0.0 {x10E3/uL} (Normal) Range: 0.0-0.1 Immature Granulocytes 0 % (Normal) Range: 0-2 Baso (Absolute) 0.1 {x10E3/uL} (Normal) Range: 0.0-0.2 Eos (Absolute) 0.3 {x10E3/uL} (Normal) Range: 0.0-0.4 Monocytes(Absolute) 0.7 {x10E3/uL} (Normal) Range: 0.1-1.0 Lymphs (Absolute) 2.5 {x10E3/uL} (Normal) Range: 0.7-4.5 Neutrophils (Absolute) 4.5 {x10E3/uL} (Normal) Range: 1.8-7.8 Basos 1 % (Normal) Range: 0-3 Eos 4 % (Normal) Range: 0-7 Monocytes 8 % (Normal) Range: 4-13 Lymphs 31 % (Normal) Range: 14-46 Neutrophils 56 % (Normal) Range: 40-74 Platelets 235 {x10E3/uL} (Normal) Range: 140-415 RDW 14.5 % (Normal) Range: 11.7-15.0 MCHC 33.7 g/dL (Normal) Range: 32.0-36.0 MCH 30.7 pg (Normal) Range: 27.0-34.0 MCV 91 fL (Normal) Range: 80-98 Hematocrit 41.8 % (Normal) Range: 34.0-44.0 Hemoglobin 14.1 g/dL (Normal) Range: 11.5-15.0 RBC 4.59 {x10E6/uL} (Normal) Range: 3.80-5.10 WBC 8.0 {x10E3/uL} (Normal) Range: 4.0-10.5 38-Vjo-97334:15 METABOLIC PANEL, COMPREHENSIVE Comments: PATIENT WAS FASTINGPERFORMED BY: [facility]CoSaint [facility] TownshipQcksnk6900 [facility] [id number] ([id number]) ALT (SGPT) 18 [iU]/L (Normal) Range: 0-40 AST (SGOT) 22 [iU]/L (Normal) Range: 0-40 Alkaline Phosphatase, S 97 [iU]/L (Normal) Range: 25-165 Bilirubin, Total 0.3 mg/dL (Normal) Range: 0.0-1.2 A/G Ratio 1.5 (Normal) Range: 1.1-2.5 Globulin, Total 2.6 g/dL (Normal) Range: 1.5-4.5 Albumin, Serum 4.0 g/dL (Normal) Range: 3.5-4.8 Protein, Total, Serum 6.6 g/dL (Normal) Range: 6.0-8.5 Calcium, Serum 9.5 mg/dL (Normal) Range: 8.6-10.2 Carbon Dioxide, Total 22 mmol/L (Normal) Range: 20-32 Chloride, Serum 107 mmol/L (Normal) Range: 97-108 Potassium, Serum 4.6 mmol/L (Normal) Range: 3.5-5.2 Sodium, Serum 144 mmol/L (Normal) Range: 134-144 BUN/Creatinine Ratio 22 (Normal) Range: 11-26 eGFR If Africn Am 88 mL/min/1.73 (Normal) eGFR If NonAfricn Am 76 mL/min/1.73 (Normal) Creatinine, Serum 0.76 mg/dL (Normal) Range: 0.57-1.00 BUN 17 mg/dL (Normal) Range: 8-27 Glucose, Serum 90 mg/dL (Normal) Range: 65-99 :15 LIPID PANEL ([id number]) Comments: PATIENT WAS FASTINGPERFORMED BY: [facility] Hpxflm5724 Sophie Duncanjonathan [place] [id number] LDL/HDL Ratio 1.1 {ratio_units} (Normal) Range: 0.0-3.2 LDL Cholesterol Calc 78 mg/dL (Normal) Range: 0-99 VLDL Cholesterol Cas 12 mg/dL (Normal) Range: 5-40 HDL Cholesterol 71 mg/dL (Normal) Comments: According to ATP-III Guidelines, HDL-C >59 mg/dL is considered anegative risk factor for CHD. Triglycerides 58 mg/dL (Normal) Range: 0-149 Cholesterol, Total 161 mg/dL (Normal) Range: 100-199 :40 CHEST, PA AND LATERAL Radiology Report See Note (Normal) Comments: PROCEDURE: X-RAY CHEST REASON FOR EXAM: Female, 76 years old. Follow-up for prior pneumonia. TECHNIQUE: PA and lateral views of the chest. COMPARISON: Comparison is made with prior study dated July 13, 2011. FINDINGS: The lungs are expanded. Persistent increased markings are seen in theright middle lobe as well as in the lingular segment of the left upperlobe. This most likely represents s carring. Correlation with a CT scanisrecommended for further evaluation. There is no demonstrated pleuralabnormality. Normal heart and pericardium. Normal mediastinum and jolynn. Normal visualized pulm onary arteries.Thereis atherosclerotic tortuosity of the aortic arch and descending thoracicaorta. There are diffuse degenerative changes of the visualized thoracic spine.Normal visualized ribs, clavicl es, and shoulders. There is no demonstrated abnormality of the visualized soft tissuestructures of the upper abdomen. IMPRESSION:Persistent increased markings in the right middle lobe and in thelingular segment of the left upper lobe. Follow-up with a CT scan is recommended. Signed:Blaine Victor M.D.August 15, 2011 at 11:44:04 AM EDTElectronically Signed GP/GP Professional Interpretation Provid ed By: [facility], , To consult with a radiologist regarding this report, please call our [id number] line @ Dictated on 15/04 0942 by Valente REDMOND,BenoitrieleTranscribed on 08/15/11 1148 by ITS IMPORTSign by Blaine Victor MD on 08/15/11 1149 Sign by: Blaine Victor MD [id number]-Ybh-[id number]:19 TSH ([id number]) Comments: 4 weeks; PATIENT NOT FASTINGPERFORMED BY: [facility] [id number] Information: [id number] TSH 2.700 {uIU/mL} (Normal) Range: 0.450-4.500 53-Ueh-63472:23 MYOCARD PERF STRESS/REST MULT Radiology Report See Note (Normal) Comments: MYOCARDIAL PERFUSION SCAN TECHNIQUEThe patient was injected with 11 mCi of Tc99m Cardiolite and subsequentlyrest SPECT Cardiolite nuclear imaging was obtained in the horizontal long, vertical long, and short axes views. The patient underwentpharmacologic (Regadenoson) evaluation with a peak heart rate of 78 beatsper minute (54% predicted maximum heart rate) with a peak blood pressureof 128/70 mmHg. The patient was injected with 31.8 mCi of Nk56iEexxkxaxyx and subsequently stress SPECT Cardiolite nuclear imaging wasobtained in the horizontal long, vertical long, and short axes views.Gated Cardiolit e study at peak stress was obtained. INTERPRETATIONRest and stress SPECT Cardiolite nuclear imaging demonstrate relativeuniform tracer uptake. There is end systolic thickening and brightening.The gated Cardiolite study demonstrates myocardial thickening and inwardwall motion. The reported LVEF is 66%. There are no myocardialperfusion deficits noted on the resting or stress polar map images. IMPRESSI ON1. Rest and stress SPECT Cardiolite nuclear imaging demonstrate relativeuniform tracer uptake and myocardial perfusion appearing within normallimits.2. The gated Cardiolite study reports an LVEF of 66%. Dictated on 07/14/11 0820 by Luther Quintero MDTranscribed on 07/15/11 0723 by Park SHELDON by Leon REDMOND,Luther on 07/15/11 1902 Sign by: Luther Quintero MD [id number]-Fbv-[id number]:27 CHEST, PA AND LATERAL Radiology Report See Note (Normal) Comments: PROCEDURE: X-RAY CHEST REASON FOR EXAM: Female, 75 years old. Three-week history of chestpainand shortness of breath. TECHNIQUE: PA and lateral views of the chest. COMPARISON: Dwayne frankie is mad e with prior examination dated April. FINDINGS: The lungs are hyper expanded, with flattening of the hemidiaphragms.Therenow is evidence of increased markings in the right middle lobe as well asin the lingular segment of the left upper lobe. This may represent earlyinfiltration. Radiographic follow up is suggested. There is nodemonstrated pleural abnormality. Normal heart and pericardium. Normal mediastinum and jolynn. Normal visualized pulmonary arteries.Thereis atherosclerotic tortuosity of the aortic arch and descending thoracicaorta. There are diffuse degenerative changes of the visu alized thoracic spine.Normal visualized ribs, clavicles, and shoulders. There is no demonstrated abnormality of the visualized soft tissuestructures of the upper abdomen. IMPRESSION:Increased markings a re seen in the right middle lobe and lingular segmentof the left upper lobe. Follow-up is suggested. To consult with a radiologist regarding this report, please call our [id number] line @ [phone] Dictated on 07/13/11 1338 by Benoit Victor MDrieleTranscribed on 07/14/11 1316 by ITS IMPORTSign by Blaine Victor MD on 07/14/11 1317 Sign by: Blaine Victor MD 37-Lyf-50976:00 BRAIN W/WO CONTRAST Radiology Report See Note (Normal) Comments: PROCEDURE: MRI BRAIN WITH AND WITHOUT CONTRAST REASON FOR EXAM: Female, 75 years old. Nystagmus. TECHNIQUE: Standardized multiplanar fat and water weighted pulsesequences were obtained. 16 ml of Magnevist contrast material wasadministered intravenously for the contrast portion of the examination. COMPARISON: None. FINDINGS:The ventricles are within normal limits in size for age. The extra-ax ialspaces are widened, particularly at the vertex. No acute infarction is demonstrated on the diffusion weighted series.Multiple signal abnormalities are seen in the bilateral cerebral whitematter, cons istent with chronic small vessel ischemic changes. The basal ganglia and thalami appear normal. No lesion is identified in the cerebellum. Minimal signal changes areseencentrally in the oliverio, suggestin g mild chronic small vessel ischemicdisease. No hemorrhage or mass lesion is identified. No abnormal enhancement isidentified. There is a large empty sella, and the pituitary is small. No abnormalityi s identified in the optic chiasm or pineal. The cavernous sinusesappearnormal. Expected major vascular structures at the base of the brain show patency. The visualized internal auditory canals appear n ormal. No acute orbital abnormality is seen. Bilateral lens implants arepresent. There is mild mucosal thickening in the bilateral ethmoid sinus. Minimalright mastoid air cell opacification is present . No lesion is identified in the calvarium or skull base. IMPRESSION:No acute abnormality identified. Moderate chronic small vessel ischemic disease in the cerebral whitematterand minimal similar change s in the oliverio. Mild involutional changes. To consult with a radiologist regarding this report, please call our [id number] line @ Dictated on 07/13/11 0000 by Chastity Coles MDTrans cribed on 07/13/11 1740 by ITS IMPORTSign by Chastity Coles MD on 07/13/111740 Sign by: Chastity Coles MD 11-Ncu-[id number]:47 CBCMD RBCM NORM C+C {NORMAL} (Normal) PE ADEQUATE (Normal) EOS 1 % (Normal) Range: 0-5 MON 4 % (Normal) Range: 0-10 LYMPH 27 % (Normal) Range: 19-41 PMN 68 % (Normal) Range: 47-70 LASHON 100 (Normal) ANC 4.3 3/uL (Normal) Range: 2.0-7.7 PLT 206 K/mm3 (Normal) Range: 150-450 RDW 14.0 % (Normal) Range: 11.6-14.6 MCHC 34.2 g/dL (Normal) Range: 32-36 MCH 31.4 pg (Normal) Range: 27.0-32.0 MCV 92.0 fL (Normal) Range: 81-99 HCT 41.8 % (Normal) Range: 37-47 HGB 14.3 g/dL (Normal) Range: 12.0-16.0 RBC 4.54 {M/mm3} (Normal) Range: 4.2-5.4 WBC 7.2 K/mm3 (Normal) Range: 4.4-11.0 :47 DDIMQ 0.43 {FEUug/mL} (Normal) Range: 0.22-0.48 Comments: NORMAL D-Dimer level indicates no DVT or PE. :47 TROP < 0.02 ng/mL (Normal) Comments: TROPONIN-I EXPECTED VALUES <0.05 NEGATIVE 0.06 - 0.59 AT RISK OF VA > OR = 0.60 SUGGEST VA :47 TSH 4.84 {uIU/mL} (Abnormal) Range: 0.358-3.74 :48 LIPID PANEL ([id number]) Comments: PATIENT WAS FASTINGPERFORMED BY: [facility]6[address] [facility] [id number] LDL/HDL Ratio 1.1 {ratio_units} (Normal) Range: 0.0-3.2 LDL Cholesterol Calc 77 mg/dL (Normal) Range: 0-99 VLDL Cholesterol Cas 11 mg/dL (Normal) Range: 5-40 HDL Cholesterol 71 mg/dL (Normal) Comments: According to ATP-III Guidelines, HDL-C >59 mg/dL is considered anegative risk factor for CHD. Triglycerides 56 mg/dL (Normal) Range: 0-149 Cholesterol, Total 159 mg/dL (Normal) Range: 100-199 :48 METABOLIC PANEL, Comments: PATIENT WAS FASTINGPERFORMED BY: [facility] FusionSaint [facility] TownshipEkoggf2902 [facility] [id number] Information: [id number] COMPREHENSIVE ([id number]) ALT (SGPT) 20 [iU]/L (Normal) Range: 0-40 AST (SGOT) 18 [iU]/L (Normal) Range: 0-40 Alkaline Phosphatase, S 94 [iU]/L (Normal) Range: 25-165 Bilirubin, Total 0.3 mg/dL (Normal) Range: 0.0-1.2 A/G Ratio 1.8 (Normal) Range: 1.1-2.5 Globulin, Total 2.3 g/dL (Normal) Range: 1.5-4.5 Albumin, Serum 4.2 g/dL (Normal) Range: 3.5-4.8 Protein, Total, Serum 6.5 g/dL (Normal) Range: 6.0-8.5 Calcium, Serum 9.6 mg/dL (Normal) Range: 8.6-10.2 Carbon Dioxide, Total 23 mmol/L (Normal) Range: 20-32 Chloride, Serum 104 mmol/L (Normal) Range: 97-108 Potassium, Serum 4.0 mmol/L (Normal) Range: 3.5-5.2 Sodium, Serum 141 mmol/L (Normal) Range: 134-144 BUN/Creatinine Ratio 26 (Normal) Range: 11-26 eGFR If Africn Am 97 mL/min/1.73 (Normal) Comments: Note: A persistent eGFR <60 mL/min/1.73 m2 (3 months or more) mayindicate chronic kidney disease. An eGFR >59 mL/min/1.73 m2 with anelevated urine protein also may indicate chronic kidney disease.Calculated using CKD-EPI formula. eGFR If NonAfricn Am 84 mL/min/1.73 (Normal) Creatinine, Serum 0.70 mg/dL (Normal) Range: 0.57-1.00 BUN 18 mg/dL (Normal) Range: 8-27 Glucose, Serum 95 mg/dL (Normal) Range: 65-99 83-Tbi-106386:48 Vitamin D Hydroxy (10494) Comments: PATIENT WAS FASTINGPERFORMED BY: [facility]6[address] [facility] [id number] Vitamin D, 25-Hydroxy 46.9 ng/mL (Normal) Range: 30.0-100.0 Comments: Vitamin D deficiency has been defined by the [place] ofMedicine and an Endocrine Society practice guideline as alevel of serum 25-OH vitamin D less than 20 ng/mL (1,2).The Endocrine Society went on to further define vitamin Dinsufficiency as a level between 21 and 29 ng/mL (2).1. IOM ([place] of Medicine). 2010. Dietary reference intakes for calcium and D. [place]: The National Academies Press.2. Candace MF, Ronak CARRASOC, Andrew OCONNELL, et al. Evaluation, treatment, and prevention of vitamin D deficiency: an Endocrine Society clinical practice guideline. JCEM. 2010; 96(7): 1911-30. .Effective June 20, 2011, Vitamin D, 25 Hydroxy specimen requirements will change to serum only. 51-Azq-299340:02 METABOLIC PANEL, Comments: PATIENT NOT FASTINGPERFORMED BY: [facility] Lqafkw9833 [facility] [id number] Information: [id number] COMPREHENSIVE (90471) ALT (SGPT) 22 [iU]/L (Normal) Range: 0-40 AST (SGOT) 20 [iU]/L (Normal) Range: 0-40 Alkaline Phosphatase, S 84 [iU]/L (Normal) Range: 25-165 Bilirubin, Total 0.2 mg/dL (Normal) Range: 0.0-1.2 A/G Ratio 1.5 (Normal) Range: 1.1-2.5 Globulin, Total 2.6 g/dL (Normal) Range: 1.5-4.5 Albumin, Serum 3.8 g/dL (Normal) Range: 3.5-4.8 Protein, Total, Serum 6.4 g/dL (Normal) Range: 6.0-8.5 Calcium, Serum 8.9 mg/dL (Normal) Range: 8.6-10.2 Carbon Dioxide, Total 23 mmol/L (Normal) Range: 20-32 Chloride, Serum 105 mmol/L (Normal) Range: 97-108 Potassium, Serum 3.5 mmol/L (Normal) Range: 3.5-5.2 Sodium, Serum 141 mmol/L (Normal) Range: 135-145 BUN/Creatinine Ratio 25 (Normal) Range: 11-26 eGFR If Africn Am 99 mL/min/1.73 (Normal) Comments: Note: A persistent eGFR <60 mL/min/1.73 m2 (3 months or more) mayindicate chronic kidney disease. An eGFR >59 mL/min/1.73 m2 with anelevated urine protein also may indicate chronic kidney disease.Calculated using CKD-EPI formula. eGFR If NonAfricn Am 86 mL/min/1.73 (Normal) Creatinine, Serum 0.67 mg/dL (Normal) Range: 0.57-1.00 BUN 17 mg/dL (Normal) Range: 8-27 Glucose, Serum 105 mg/dL (Abnormal) Range: 65-99 99-Imo-46711:00 BILAT SCRN DIGITAL & CAD Radiology Report See Note (Normal) Comments: MAMMOGRAPHY - BILATERAL SCREENING REASON FOR EXAM: Female, 75 years old. Routine annual screeningexamination. PERTINENT HISTORY: Non-contributory. TECHNIQUE: Digital examination. Med iolateral ob lique (MLO) andcraniocaudad (CC) views of both breasts were obtained. CAD: CAD wasperformed on this study. COMPARISON: Comparison is made with prior examination dated February. FINDINGS:The br east composition is almost entirely fatty replaced. There are no masses or suspicious microcalcifications. There is a stable5.2-mm nodule in the deep mid aspect of the left breast. This mostlikelyrepr esents a small lymph node. This is unchanged. No other significant abnormalities are identified. There has been nosignificant change since the prior study. IMPRESSION:Normal bilateral screening mammog lion. One year follow-up recommended. (A) ASSESSMENT CATEGORY:BIRADS Category 2: Benign finding(s). A letter regarding these resultswill be sent to the patient by the facility within 30 days. Approxim ately 10% of breast cancers are not detected by mammography. Anormal mammogram should not delay biopsy of a clinically suspiciousabnormality. Dictated on 03/02/11 1416 by Renée Victor MD ribed on 03/02/11 1546 by ITS IMPORTSign by Blaine Victor MD on 03/02/11 1548 Sign by: Blaine Victor MD 77-Gqx-776684:24 GALLBLADDER Radiology Report See Note (Normal) Comments: PROCEDURE: ABDOMINAL ULTRASOUND REASON FOR EXAM: Female, 75 years old. Pain RUQ. TECHNIQUE: Transabdominal TECHNICAL QUALITY: Adequate. COMPARISON: None. FINDINGS: Liver: Normal size of the liver. The liver measures 16.3 cm. There isnormal echogenicity of the liver. The bile ducts are within normallimits.There is hepatic color flow. There is portal color flow. There is nodemonstrated mass lesion. Gallbladder: Normal distended gallbladder. The gallbladder wallmeasures2.0 . mm. There is a negative sonographic Ovalle's sign. There is nopericholecystic fluid. There are no gallst ones. Common Bile Duct (C.B.D.): There is dilatation of the common bile duct.The common bile duct measures 11 mm. I suspect choledocho lithiasis. Pancreas: Normal size of the head, body and tail of the pancreas.Thereis normal echogenicity of the pancreas. There is no demonstratedpancreatic mass or cyst. Right Kidney: Normal size of the right kidney. The right oozlkbkridegil47.4 cm. Normal cici l cortex. The right cortex measures 1.4cm Thereisno demonstrated renal mass or cyst. There are no demonstrated renalcalculi. There is no hydronephrosis. There is no ascites. IMPRESSION:Findings i n keeping with choledocho lithiasis. Dictated on 03/01/11918 by Joni Victor MDranscribed on 03/02/11921 by ITS IMPORTSign by Blaine Victor MD on 03/02/11921 Sign by: Blaine Victor MD 10-Xqy-964247:14 HEPATITIS C ANTIBODY ([id number]) Comments: PATIENT NOT FASTINGPERFORMED BY: [employer] Rhfudt2794 [facility] [id number] HCV Ab <0.1 {s/co_ratio} (Normal) Range: 0.0-0.9 Comments: NegativeNot infected with HCV, unless recent infection is suspected or otherevidence exists to indicate HCV infection. 29-Byc-043514:14 METABOLIC PANEL, Comments: PATIENT NOT FASTINGPERFORMED BY: GCommerceSaint [facility] TownshipAvrucd2362 [facility] [id number] Information: [id number] COMPREHENSIVE (86059) ALT (SGPT) 157 [iU]/L (Abnormal) Range: 0-40 AST (SGOT) 40 [iU]/L (Normal) Range: 0-40 Alkaline Phosphatase, S 119 [iU]/L (Normal) Range: 25-165 Bilirubin, Total 0.6 mg/dL (Normal) Range: 0.0-1.2 A/G Ratio 1.5 (Normal) Range: 1.1-2.5 Globulin, Total 2.6 g/dL (Normal) Range: 1.5-4.5 Albumin, Serum 3.8 g/dL (Normal) Range: 3.5-4.8 Protein, Total, Serum 6.4 g/dL (Normal) Range: 6.0-8.5 Calcium, Serum 9.0 mg/dL (Normal) Range: 8.6-10.2 Carbon Dioxide, Total 24 mmol/L (Normal) Range: 20-32 Chloride, Serum 100 mmol/L (Normal) Range: 97-108 Potassium, Serum 3.4 mmol/L (Abnormal) Range: 3.5-5.2 Comments: Client Requested Flag Sodium, Serum 138 mmol/L (Normal) Range: 135-145 BUN/Creatinine Ratio 17 (Normal) Range: 11-26 eGFR If Africn Am 100 mL/min/1.73 (Normal) Comments: Note: A persistent eGFR <60 mL/min/1.73 m2 (3 months or more) mayindicate chronic kidney disease. An eGFR >59 mL/min/1.73 m2 with anelevated urine protein also may indicate chronic kidney disease.Calculated using CKD-EPI formula. eGFR If NonAfricn Am 87 mL/min/1.73 (Normal) Creatinine, Serum 0.65 mg/dL (Normal) Range: 0.57-1.00 BUN 11 mg/dL (Normal) Range: 8-27 Glucose, Serum 113 mg/dL (Abnormal) Range: 65-99 23-Feb-20118:47 Microscopic Examination Comments: PATIENT WAS FASTINGPERFORMED BY: LabCoSaint [facility] TownshipUrwzsn9051 [facility] [id number] Bacteria Few (Normal) Mucus Threads Present (Normal) Epithelial Cells (non renal) 0-10 {/hpf} (Normal) Range: 0 - 10 RBC 0-3 {/hpf} (Normal) Range: 0 - 3 WBC 0-5 {/hpf} (Normal) Range: 0 - 5 1-Sga-965017:23 DEXA BONE DENSITY STUDY (HP) Radiology Report See Note (Normal) Comments: PROCEDURE: DUAL ENERGY X-RAY ABSORPTIOMETRY / DEXA. REASON FOR EXAM: Female, 75 years old. The patient is postmenopausal. TECHNIQUE: Bone Mineral Density (BMD) measurements of lumbar s pine andbila teral hips were obtained. COMPARISON: Comparison is made with prior study dated August 20, 2008. FINDINGS: Lumbar Spine (L1-L4): g/cm2 (0.799) / T-score (-3.1) / Z-score (-1.3)Left Femur Total: g/cm 2 (0.709) / T-score (-2.4) / Z-score (-0.4)Right Femur Total: g/cm2 (0.693) / T-score (-2.5) / Z-score (0.0) Since prior study, there has been a loss of 6.8% and on density. IMPRESSION:The norma ent is considered osteoporotic, as outlined above, according toWorld Health Organization (WHO) criteria. Fracture risk is high. Reference Information:The T-score is the number of standard deviations ab ove or below thestandard which is normal for young adults at their peak bone mineraldensity. The World Health Organization (WHO) interprets the T-scores asfollows: Above -1 Normal bone density Between -1 and -2.5 OsteopeniaEqual to / or below -2.5 Osteoporosis As a practical clinical guideline, osteopenia may be graded as follows:Mild -1 through -1.5Moderate -1.6 through -2.0Severe -2.1 through -2.4 The Z-score is the number of standard deviations above or below age-matchedcontrols. A Z-score of less than -1.5 would be considered abnormal. References:1. NIH Osteoporosis and Related Bone Diseases http://www.osteo.org2. International Society for Clinical Densitometry http://www.iscd.org3. National Osteoporosis Foundation http://www.nof.org Dictated on 02/22/11 1328 by Valente REDMOND,GabrieleTranscribed on 02/23/11 1108 by ITS IMPORTSign by Blaine Victor MD on 02/23/11 1109 Sign by: Blaine Victor MD :47 TSH ([id number]) Comments: PATIENT WAS FASTINGPERFORMED BY: [facility] Gbgqvi9228 [facility] [id number] TSH 2.270 {uIU/mL} (Normal) Range: 0.450-4.500 :47 URINALYSIS, W/ MICRO ([id number]) Comments: PATIENT WAS FASTINGPERFORMED BY: [facility] Llkvzu1724 [facility] [id number] Microscopic Examination See below: (Normal) Nitrite, Urine Negative (Normal) Urobilinogen,Semi-Qn 0.2 mg/dL (Normal) Range: 0.0-1.9 Bilirubin Negative (Normal) Occult Blood Negative (Normal) Ketones Negative (Normal) Glucose Negative (Normal) Protein Negative (Normal) WBC Esterase Trace (Abnormal) Appearance Clear (Normal) Urine-Color Yellow (Normal) pH 7.0 (Normal) Range: 5.0-7.5 Specific Carlyle 1.021 (Normal) Range: 1.005-1.030 :47 CBC WITH MANUAL DIFF ([id number]) Comments: PATIENT WAS FASTINGPERFORMED BY: [facility] Latoyy5261 [facility] [id number] Immature Grans (Abs) 0.0 {x10E3/uL} (Normal) Range: 0.0-0.1 Immature Granulocytes 0 % (Normal) Range: 0-2 Baso (Absolute) 0.0 {x10E3/uL} (Normal) Range: 0.0-0.2 Eos (Absolute) 0.3 {x10E3/uL} (Normal) Range: 0.0-0.4 Monocytes(Absolute) 0.5 {x10E3/uL} (Normal) Range: 0.1-1.0 Lymphs (Absolute) 2.0 {x10E3/uL} (Normal) Range: 0.7-4.5 Neutrophils (Absolute) 3.9 {x10E3/uL} (Normal) Range: 1.8-7.8 Basos 0 % (Normal) Range: 0-3 Eos 5 % (Normal) Range: 0-7 Monocytes 7 % (Normal) Range: 4-13 Lymphs 30 % (Normal) Range: 14-46 Neutrophils 58 % (Normal) Range: 40-74 Platelets 222 {x10E3/uL} (Normal) Range: 140-415 RDW 14.4 % (Normal) Range: 11.7-15.0 MCHC 32.1 g/dL (Normal) Range: 32.0-36.0 MCH 30.4 pg (Normal) Range: 27.0-34.0 MCV 95 fL (Normal) Range: 80-98 Hematocrit 42.4 % (Normal) Range: 34.0-44.0 Hemoglobin 13.6 g/dL (Normal) Range: 11.5-15.0 RBC 4.48 {x10E6/uL} (Normal) Range: 3.80-5.10 WBC 6.8 {x10E3/uL} (Normal) Range: 4.0-10.5 23-Feb-20118:47 METABOLIC PANEL, COMPREHENSIVE Comments: PATIENT WAS FASTINGPERFORMED BY: LabCoSaint [facility] Hospital at [facility] TownshipScygev8429 [facility] [id number] ([id number]) ALT (SGPT) 22 [iU]/L (Normal) Range: 0-40 AST (SGOT) 21 [iU]/L (Normal) Range: 0-40 Alkaline Phosphatase, S 75 [iU]/L (Normal) Range: 25-165 Bilirubin, Total 0.4 mg/dL (Normal) Range: 0.0-1.2 A/G Ratio 1.8 (Normal) Range: 1.1-2.5 Globulin, Total 2.3 g/dL (Normal) Range: 1.5-4.5 Albumin, Serum 4.1 g/dL (Normal) Range: 3.5-4.8 Protein, Total, Serum 6.4 g/dL (Normal) Range: 6.0-8.5 Calcium, Serum 8.4 mg/dL (Abnormal) Range: 8.6-10.2 Carbon Dioxide, Total 23 mmol/L (Normal) Range: 20-32 Chloride, Serum 101 mmol/L (Normal) Range: 97-108 Potassium, Serum 3.3 mmol/L (Abnormal) Range: 3.5-5.2 Comments: Client Requested Flag Sodium, Serum 139 mmol/L (Normal) Range: 135-145 BUN/Creatinine Ratio 24 (Normal) Range: 11-26 eGFR If Africn Am 91 mL/min/1.73 (Normal) Comments: Note: A persistent eGFR <60 mL/min/1.73 m2 (3 months or more) mayindicate chronic kidney disease. An eGFR >59 mL/min/1.73 m2 with anelevated urine protein also may indicate chronic kidney disease.Calculated using CKD-EPI formula. eGFR If NonAfricn Am 79 mL/min/1.73 (Normal) Creatinine, Serum 0.74 mg/dL (Normal) Range: 0.57-1.00 BUN 18 mg/dL (Normal) Range: 8-27 Glucose, Serum 97 mg/dL (Normal) Range: 65-99 :47 Vitamin D Hydroxy ([id number]) Comments: PATIENT WAS FASTINGPERFORMED BY: [employer]70 [facility]Car[facility] [id number] Vitamin D, 25-Hydroxy 44.0 ng/mL (Normal) Range: 32.0-100.0 Comments: Effective March 07, 2011 Vitamin D, 25-Hydroxy reference intervals will be changing to 30-100. .Recent studies consider the lower li phuong of 32.0 ng/mL to be athreshold for optimal health.Ambrosio SAGASTUME. J Nutr. 2004;135(2):317-22. :47 LIPID PANEL (05635) Comments: PATIENT WAS FASTINGPERFORMED BY: Linguastat6370 [facility] [id number] LDL Cholesterol Calc 99 mg/dL (Normal) Range: 0-99 LDL/HDL Ratio 1.5 {ratio_units} (Normal) Range: 0.0-3.2 HDL Cholesterol 65 mg/dL (Normal) Comments: According to ATP-III Guidelines, HDL-C >59 mg/dL is considered anegative risk factor for CHD. VLDL Cholesterol Cas 14 mg/dL (Normal) Range: 5-40 Triglycerides 70 mg/dL (Normal) Range: 0-149 Cholesterol, Total 178 mg/dL (Normal) Range: 100-199 01-Gtz-547532:21 HEPATIC FUNCTION PANEL Comments: 2 weeks; PATIENT NOT FASTINGPERFORMED BY: [facility]6370 [facility] [id number] Information: [id number] ([id number]) ALT (SGPT) 21 [iU]/L (Normal) Range: 0-40 AST (SGOT) 20 [iU]/L (Normal) Range: 0-40 Albumin, Serum 4.2 g/dL (Normal) Range: 3.5-4.8 Alkaline Phosphatase, S 85 [iU]/L (Normal) Range: 25-165 Bilirubin, Direct 0.13 mg/dL (Normal) Range: 0.00-0.40 Bilirubin, Total 0.4 mg/dL (Normal) Range: 0.0-1.2 Protein, Total, Serum 6.8 g/dL (Normal) Range: 6.0-8.5 16-Aug-20109:06 Microscopic Examination Comments: PATIENT WAS FASTINGPERFORMED BY: [facility].ukMunson [facility] Center6370 [facility] [id number] Bacteria None seen (Normal) Mucus Threads Present (Normal) Epithelial Cells (non renal) 0-10 {/hpf} (Normal) Range: 0 - 10 RBC 0-3 {/hpf} (Normal) Range: 0 - 3 WBC 0-5 {/hpf} (Normal) Range: 0 - 5 44-Jzf-219096:08 BILAT SCRN DIGITAL & CAD Radiology Report See Note (Normal) Comments: Exam Number: [id number] AMMOGRAPHY - BILATERAL SCREENING INDICATION:Routine annual screening examination. PERTINENT HISTORY:Non-contributory. TECHNIQUE:Digital examination. Mediolateral oblique (MLO) an d craniocaudad (CC) views of both breasts were obtained. CAD was performed on this study. COMPARISON:Comparison is made with prior examination dated February 23, 2009. FINDINGS:The breast composition is almost entirely fatty replaced. There are no masses or suspicious microcalcifications. No other significant abnormalities are identified. There has been no significant change since the prior study. IM PRESSION:Normal bilateral screening mammogram. Yearly follow-up recommended. ASSESSMENT CATEGORY:Category 2: Benign finding(s) Approximately 10% of breast cancers are not detected by mammography. A n ormal mammogram should not delay biopsy of a clinically suspicious abnormality.This addendum is being created for the purpose of attaching a ResultCode to this exam. ADDENDUM: [id number] HPBI/MDS Reported By: CHASTITY QUIROGA M.D. :06 Vitamin D Hydroxy (13411) Comments: PATIENT WAS FASTINGPERFORMED BY: Linguastat6370 [employer] [place] [id number] Vitamin D, 25-Hydroxy 47.0 ng/mL (Normal) Range: 32.0-100.0 Comments: Recent studies consider the lower limit of 32.0 ng/mL to be athreshold for optimal health.Ambrosio SAGASTUME. J Nutr. 2004;135(2):317-22. :06 URINALYSIS, W/ MICRO ([id number]) Comments: PATIENT WAS FASTINGPERFORMED BY: Linguastat6370 [facility]StreamJ[facility] [id number] Bilirubin Negative (Normal) Microscopic Examination MICRON (Normal) Comments: Microscopic follows if indicated. Microscopic Examination See below: (Normal) Nitrite, Urine Negative (Normal) Urobilinogen,Semi-Qn 0.2 mg/dL (Normal) Range: 0.0-1.9 Glucose Negative (Normal) Ketones Negative (Normal) Occult Blood Negative (Normal) Protein Negative (Normal) Appearance Clear (Normal) pH 6.5 (Normal) Range: 5.0-7.5 Urine-Color Yellow (Normal) WBC Esterase Negative (Normal) Specific Carlyle 1.024 (Normal) Range: 1.005-1.030 :06 LIPID PANEL ([id number]) Comments: PATIENT WAS FASTINGPERFORMED BY: Linguastat6370 [employer] [place] [id number] LDL Cholesterol Calc 84 mg/dL (Normal) Range: 0-99 LDL/HDL Ratio 1.3 {ratio_units} (Normal) Range: 0.0-3.2 HDL Cholesterol 63 mg/dL (Normal) Comments: According to ATP-III Guidelines, HDL-C >59 mg/dL is considered anegative risk factor for CHD. VLDL Cholesterol Cas 12 mg/dL (Normal) Range: 5-40 Cholesterol, Total 159 mg/dL (Normal) Range: 100-199 Triglycerides 60 mg/dL (Normal) Range: 0-149 :06 CBC WITH MANUAL DIFF Comments: PATIENT WAS FASTINGPERFORMED BY: NUBIA sCoolTV70 [facility] [id number] Information: [id number] ([id number]) Immature Grans (Abs) 0.0 {x10E3/uL} (Normal) Range: 0.0-0.1 Immature Granulocytes 0 % (Normal) Range: 0-1 Baso (Absolute) 0.0 {x10E3/uL} (Normal) Range: 0.0-0.2 Eos (Absolute) 0.3 {x10E3/uL} (Normal) Range: 0.0-0.4 Lymphs (Absolute) 2.0 {x10E3/uL} (Normal) Range: 0.7-4.5 Monocytes(Absolute) 0.5 {x10E3/uL} (Normal) Range: 0.1-1.0 Neutrophils (Absolute) 3.0 {x10E3/uL} (Normal) Range: 1.8-7.8 Basos 1 % (Normal) Range: 0-3 Eos 5 % (Normal) Range: 0-7 Lymphs 34 % (Normal) Range: 14-46 Monocytes 9 % (Normal) Range: 4-13 Neutrophils 51 % (Normal) Range: 40-74 MCHC 33.3 g/dL (Normal) Range: 32.0-36.0 Platelets 241 {x10E3/uL} (Normal) Range: 140-415 RDW 14.8 % (Normal) Range: 11.7-15.0 Hematocrit 41.7 % (Normal) Range: 34.0-44.0 MCH 30.6 pg (Normal) Range: 27.0-34.0 MCV 92 fL (Normal) Range: 80-98 Hemoglobin 13.9 g/dL (Normal) Range: 11.5-15.0 RBC 4.54 {x10E6/uL} (Normal) Range: 3.80-5.10 WBC 5.8 {x10E3/uL} (Normal) Range: 4.0-10.5 :06 METABOLIC PANEL, COMPREHENSIVE Comments: PATIENT WAS FASTINGPERFORMED BY: NUBIA Ninua6370 [facility] [id number] ([id number]) ALT (SGPT) 118 [iU]/L (Abnormal) Range: 0-40 A/G Ratio 1.6 (Normal) Range: 1.1-2.5 Albumin, Serum 4.0 g/dL (Normal) Range: 3.5-4.8 Alkaline Phosphatase, S 129 [iU]/L (Normal) Range: 25-165 AST (SGOT) 25 [iU]/L (Normal) Range: 0-40 Bilirubin, Total 0.4 mg/dL (Normal) Range: 0.0-1.2 Globulin, Total 2.5 g/dL (Normal) Range: 1.5-4.5 Protein, Total, Serum 6.5 g/dL (Normal) Range: 6.0-8.5 Calcium, Serum 9.2 mg/dL (Normal) Range: 8.6-10.2 Carbon Dioxide, Total 25 mmol/L (Normal) Range: 20-32 Chloride, Serum 102 mmol/L (Normal) Range: 97-108 Potassium, Serum 3.8 mmol/L (Normal) Range: 3.5-5.2 BUN/Creatinine Ratio 21 (Normal) Range: 11-26 eGFR If Africn Am 90 mL/min/1.73 (Normal) Comments: Note: A persistent eGFR <60 mL/min/1.73 m2 (3 months or more) mayindicate chronic kidney disease. An eGFR >59 mL/min/1.73 m2 with anelevated urine protein also may indicate chronic kidney disease.Calculated using CKD-EPI formula. Sodium, Serum 140 mmol/L (Normal) Range: 135-145 Creatinine, Serum 0.75 mg/dL (Normal) Range: 0.57-1.00 eGFR If NonAfricn Am 78 mL/min/1.73 (Normal) BUN 16 mg/dL (Normal) Range: 8-27 Glucose, Serum 89 mg/dL (Normal) Range: 65-99 16-Aug-20109:06 TSH ([id number]) Comments: PATIENT WAS FASTINGPERFORMED BY: LabCoSaint [facility] at [facility] TownshipUwggph8283 [facility] [id number] TSH 2.530 {uIU/mL} (Normal) Range: 0.450-4.500 :07 HEPATIC FUNCTION PANEL Comments: PATIENT WAS FASTINGPERFORMED BY: [facility]6370 [facility] [id number] Information: [id number] ([id number]) Alkaline Phosphatase, S 77 [iU]/L (Normal) Range: 25-165 ALT (SGPT) 23 [iU]/L (Normal) Range: 0-40 AST (SGOT) 19 [iU]/L (Normal) Range: 0-40 Bilirubin, Direct 0.10 mg/dL (Normal) Range: 0.00-0.40 Albumin, Serum 3.9 g/dL (Normal) Range: 3.5-4.8 Bilirubin, Total 0.3 mg/dL (Normal) Range: 0.0-1.2 Protein, Total, Serum 6.5 g/dL (Normal) Range: 6.0-8.5 :07 LIPID PANEL ([id number]) Comments: PATIENT WAS FASTINGPERFORMED BY: GCommerceSaint Clare's Hospital at Bo[facility] TownshipSaqfym2583 [facility] [id number] LDL Cholesterol Calc 92 mg/dL (Normal) Range: 0-99 LDL/HDL Ratio 1.6 {ratio_units} (Normal) Range: 0.0-3.2 VLDL Cholesterol Cas 26 mg/dL (Normal) Range: 5-40 Cholesterol, Total 175 mg/dL (Normal) Range: 100-199 HDL Cholesterol 57 mg/dL (Normal) Comments: According to ATP-III Guidelines, HDL-C >59 mg/dL is considered anegative risk factor for CHD. Triglycerides 132 mg/dL (Normal) Range: 0-149 :47 CBC WITH MANUAL DIFF Comments: PATIENT WAS FASTINGPERFORMED BY: [facility]6370 [facility] [id number] Information: [id number] ([id number]) Baso (Absolute) 0.1 {x10E3/uL} (Normal) Range: 0.0-0.2 Eos (Absolute) 0.3 {x10E3/uL} (Normal) Range: 0.0-0.4 Lymphs (Absolute) 2.1 {x10E3/uL} (Normal) Range: 0.7-4.5 Monocytes(Absolute) 0.4 {x10E3/uL} (Normal) Range: 0.1-1.0 Basos 1 % (Normal) Range: 0-3 Eos 5 % (Normal) Range: 0-7 Monocytes 7 % (Normal) Range: 4-13 Neutrophils (Absolute) 3.3 {x10E3/uL} (Normal) Range: 1.8-7.8 Lymphs 34 % (Normal) Range: 14-46 Neutrophils 53 % (Normal) Range: 40-74 Platelets 266 {x10E3/uL} (Normal) Range: 140-415 RDW 14.8 % (Normal) Range: 11.7-15.0 MCH 31.7 pg (Normal) Range: 27.0-34.0 MCHC 33.6 g/dL (Normal) Range: 32.0-36.0 MCV 94 fL (Normal) Range: 80-98 Hematocrit 41.0 % (Normal) Range: 34.0-44.0 Hemoglobin 13.8 g/dL (Normal) Range: 11.5-15.0 RBC 4.35 {x10E6/uL} (Normal) Range: 3.80-5.10 WBC 6.2 {x10E3/uL} (Normal) Range: 4.0-10.5 :47 Vitamin D Hydroxy ([id number]) Comments: PATIENT WAS FASTINGPERFORMED BY: Linguastat6370 [employer] [place] [id number] Vitamin D, 25-Hydroxy 53.5 ng/mL (Normal) Range: 32.0-100.0 Comments: Recent studies consider the lower limit of 32.0 ng/mL to be athreshold for optimal health.Ambrosio SAGASTUME. J Nutr. 2004;135(2):317-22. :47 TSH ([id number]) Comments: PATIENT WAS FASTINGPERFORMED BY: [employer] Fusionrp Uniebl8774 HQ plusblin [place] [id number] TSH 2.280 {uIU/mL} (Normal) Range: 0.450-4.500 :47 LIPID PANEL ([id number]) Comments: PATIENT WAS FASTINGPERFORMED BY: [employer] Hmsinq8969 [facility] [id number] LDL Cholesterol Calc 82 mg/dL (Normal) Range: 0-99 LDL/HDL Ratio 1.4 {ratio_units} (Normal) Range: 0.0-3.2 HDL Cholesterol 58 mg/dL (Normal) Comments: According to ATP-III Guidelines, HDL-C >59 mg/dL is considered anegative risk factor for CHD. Triglycerides 85 mg/dL (Normal) Range: 0-149 VLDL Cholesterol Cas 17 mg/dL (Normal) Range: 5-40 Cholesterol, Total 157 mg/dL (Normal) Range: 100-199 19-Aug-20098:47 METABOLIC PANEL, COMPREHENSIVE Comments: PATIENT WAS FASTINGPERFORMED BY: LabCoSaint Clare's Hospital at Bo[facility] TownshipIkuwcd3055 [facility] [id number] ([id number]) Alkaline Phosphatase, S 97 [iU]/L (Normal) Range: 25-165 ALT (SGPT) 28 [iU]/L (Normal) Range: 0-40 AST (SGOT) 17 [iU]/L (Normal) Range: 0-40 A/G Ratio 1.6 (Normal) Range: 1.1-2.5 Albumin, Serum 4.1 g/dL (Normal) Range: 3.5-4.8 Bilirubin, Total 0.3 mg/dL (Normal) Range: 0.0-1.2 Comments: Please note reference interval change Globulin, Total 2.5 g/dL (Normal) Range: 1.5-4.5 Protein, Total, Serum 6.6 g/dL (Normal) Range: 6.0-8.5 Calcium, Serum 9.3 mg/dL (Normal) Range: 8.6-10.2 Carbon Dioxide, Total 26 mmol/L (Normal) Range: 20-32 BUN/Creatinine Ratio 21 (Normal) Range: 8-27 Chloride, Serum 104 mmol/L (Normal) Range: 97-108 eGFR AfricanAmerican >59 mL/min/1.73 Comments: Note: Persistent reduction for 3 months or more in an eGFR<60 mL/min/1.73 m2 defines CKD. Patients with eGFR values>/=60 mL/min/1.73 m2 may also have CKD if evidence of persistentproteinuria is (Normal) present. Additional information may be found [email or web address]. Potassium, Serum 4.5 mmol/L (Normal) Range: 3.5-5.2 Sodium, Serum 143 mmol/L (Normal) Range: 135-145 Creatinine, Serum 0.75 mg/dL (Normal) Range: 0.57-1.00 eGFR >59 mL/min/1.73 (Normal) BUN 16 mg/dL (Normal) Range: 5-26 Glucose, Serum 95 mg/dL (Normal) Range: 65-99 8-Tei-093217:24 BILAT DIAG DIGITAL & CAD Radiology Report See Note (Normal) Comments: Exam Number: [id number] MAMMOGRAM, BILATERAL DIAGNOSTIC DIGITAL AND CAD HISTORYBilateral 6-month followup. Full field digital images were obtained in mediolateral oblique andcraniocaudal proj ections. CA D images were reviewed. The current study is compared to the examinations of April 25, 2006,April 27, 2007 and August 20, 2008. There is a mild extent of fibroglandular parenchyma present. There isno sk in thickening or retraction, architectural distortion, or clusterof suspicious microcalcifications. On the right, the small densityseen in the inner breast on the craniocaudal view of August 20, 2008, isno t identified. The technologist's note indicates there are a largenumber of very flat skin tags present and it is possible the smalldensity represented visualization of one of those skin lesions. Onthe left, the density seen in the inner half of the breast nowcorresponds to the location of a mole marker. There is also a focaldensity in the upper outer quadrant of the left breast which has beenseen o n multiple previous studies and is unchanged. If there is nosuspicious palpable abnormality, followup mammogram in 1 year isrecommended. IMPRESSIONThere is no radiographic evidence of malignancy identif ied. FINAL ASSESSMENTBenign findings. BIRADS Category 2. A letter regarding these results has been sent to the patient. This interpretation was rendered by a radiologist certified under theMammography Quality Standards Act of 1992 (MQSA). The mammograms werealso examined with computer-aided detection software ([employer], [employer] Reported By: CHASTITY QUIROGA M.D. 05-Mji-113349:28 L/S SPINE,MIN 4 VIEWS (MT) Radiology Report See Note (Normal) Comments: Exam Number: [id number] LUMBOSACRAL SPINE SERIES HISTORYA 73-year-old woman with pain for the past 6 months in the lower backwhen she walks. Extends into her left leg. Complete lumbosacral spine series. The vertebral bodies are normallyaligned. Moderate narrowing at L4-5. Diffuse lower lumbar facetarthritis. Mild atherosclerotic changes. No pars defects. The SI joints are unremarkable. Mild at herosclerosis. IMPRESSIONModerate disc degeneration at L4-5. Moderate lower lumbar facetarthritis. Atherosclerosis. Reported By: BEN MULLINS M.D. 78-Aqu-586941:14 METABOLIC PANEL, COMPREHENSIVE Comments: PATIENT NOT FASTINGPERFORMED BY: LabCoSaint [facility] Hospital at [facility] TownshipDpmjsp8733 [facility] [id number] ([id number]) A/G Ratio 1.7 (Normal) Range: 1.1-2.5 Albumin, Serum 4.2 g/dL (Normal) Range: 3.5-4.8 Alkaline Phosphatase, S 82 [iU]/L (Normal) Range: 25-165 ALT (SGPT) 24 [iU]/L (Normal) Range: 0-40 AST (SGOT) 20 [iU]/L (Normal) Range: 0-40 Bilirubin, Total 0.3 mg/dL (Normal) Range: 0.1-1.2 BUN 13 mg/dL (Normal) Range: 5-26 BUN/Creatinine Ratio 16 (Normal) Range: 8-27 Calcium, Serum 9.8 mg/dL (Normal) Range: 8.5-10.6 Carbon Dioxide, Total 26 mmol/L (Normal) Range: 20-32 Chloride, Serum 103 mmol/L (Normal) Range: 97-108 Creatinine, Serum 0.82 mg/dL (Normal) Range: 0.57-1.00 eGFR >59 mL/min/1.73 (Normal) eGFR AfricanAmerican >59 mL/min/1.73 Comments: Note: Persistent reduction for 3 months or more in an eGFR<60 mL/min/1.73 m2 defines CKD. Patients with eGFR values>/=60 mL/min/1.73 m2 may also have CKD if evidence of persistentproteinuria is (Normal) present. Additional information may be found [email or web address]. Globulin, Total 2.5 g/dL (Normal) Range: 1.5-4.5 Glucose, Serum 92 mg/dL (Normal) Range: 65-99 Potassium, Serum 4.1 mmol/L (Normal) Range: 3.5-5.2 Protein, Total, Serum 6.7 g/dL (Normal) Range: 6.0-8.5 Sodium, Serum 143 mmol/L (Normal) Range: 135-145 79-Yjz-927490:14 CBC WITH MANUAL DIFF ([id number]) Comments: PATIENT NOT FASTINGClinical Information: ADD [id number], [id number] PERFORMED BY: NUBIA LabCoSaint Clare's Hospital at Boont[facility] TownshipZhtcoo8692 [facility] [id number] Baso (Absolute) 0.1 {x10E3/uL} (Normal) Range: 0.0-0.2 Basos 1 % (Normal) Range: 0-3 Eos 3 % (Normal) Range: 0-7 Eos (Absolute) 0.2 {x10E3/uL} (Normal) Range: 0.0-0.4 Hematocrit 40.3 % (Normal) Range: 34.0-44.0 Hemoglobin 13.4 g/dL (Normal) Range: 11.5-15.0 Lymphs 30 % (Normal) Range: 14-46 Lymphs (Absolute) 1.8 {x10E3/uL} (Normal) Range: 0.7-4.5 MCH 31.0 pg (Normal) Range: 27.0-34.0 MCHC 33.2 g/dL (Normal) Range: 32.0-36.0 MCV 93 fL (Normal) Range: 80-98 Monocytes 9 % (Normal) Range: 4-13 Monocytes(Absolute) 0.5 {x10E3/uL} (Normal) Range: 0.1-1.0 Neutrophils 57 % (Normal) Range: 40-74 Neutrophils (Absolute) 3.5 {x10E3/uL} (Normal) Range: 1.8-7.8 Platelets 201 {x10E3/uL} (Normal) Range: 140-415 RBC 4.32 {x10E6/uL} (Normal) Range: 3.80-5.10 RDW 14.7 % (Normal) Range: 11.7-15.0 WBC 6.1 {x10E3/uL} (Normal) Range: 4.0-10.5 :53 BMP BUN 14 mg/dL (Normal) Range: 7-18 BUN/CRE 17.5 {RATIO} (Normal) Range: 10-20 CA 9.4 mg/dL (Normal) Range: 8.5-10.1 CL 102 mmol/L (Normal) Range: 98-107 CO2 31.0 mmol/L (Normal) Range: 21.0-32.0 CREAT,SERUM 0.8 mg/dL (Normal) Range: 0.6-1.0 GAP 5 (Normal) Range: 5-15 GLU 108 mg/dL (Normal) Range: 70-110 K 3.6 mmol/L (Normal) Range: 3.5-5.1 NA 138 mmol/L (Normal) Range: 136-145 :53 MYOCARD PERF SPECT REST/STRESS Radiology Report See Note (Normal) Comments: Exam Number: [id number] MYOCARDIAL PERFUSION SCAN TECHNIQUEThe patient was injected with 12 mCi of Tc99m Cardiolite andsubsequently rest SPECT Cardiolite nuclear imaging was obtained in thehorizontal ignacio g, vertical long, and short axes views. The patientexercised on a Omi protocol for 6 minutes, achieving a peak heartrate of 126 beats per minute (86% predicted maximum heart rate) witha peak blood pr essure of 160/80 mmHg and a peak MET capacity of 7METs. The patient was injected with 37.2 mCi of Tc99m Cardiolite andsubsequently stress SPECT Cardiolite nuclear imaging was obtained inthe horizontal long, vertical long, and short axes views. The gatedCardiolite study at peak stress was obtained. INTERPRETATIONRest and stress SPECT Cardiolite nuclear imaging demonstraterelative uniform tracer upt farrah and myocardial perfusion appearingwithin normal limits. There is end- systolic thickening andbrightening, and on the gated Cardiolite study, myocardial thickeningand inward wall motion. The reporte d LVEF is 66%. IMPRESSION 1. Rest and stress SPECT Cardiolite nuclear imaging demonstraterelative uniform tracer uptake and myocardial perfusion appearingwithin normal limits. 2. The gated Cardioli te study reports an LVEF of 66%. Reported By: LUTHER QUINTERO M.D. :49 BILAT SCRN DIGITAL & CAD Radiology Report See Note (Normal) Comments: Exam Number: [id number] MAMMOGRAM, BILATERAL SCREENING DIGITAL AND CAD HISTORYRoutine screening. Full field digital images were obtained in mediolateral oblique,craniocaudal, and cleavage projections. C AD images were reviewed. The current study is compared to the examinations of April 25, 2005,April 25, 2006, and April 27, 2007. There is a mild extent of fibroglandular parenchyma present. There i sno skin thickening or retraction, architectural distortion, or clusterof suspicious microcalcifications. On the left, there is a nodule inthe upper outer quadrant of the breast which is stable. In th e leftcraniocaudal view, there is a 5-mm nodule in the inner breast, whichis not seen previously. On the right in the craniocaudal projection,there is a 3- mm nodule seen in the inner right breast, also not seenpreviously. The small nodules are most likely benign. If there is nosuspicious palpable abnormality, a bilateral 6-month followup isrecommended. IMPRESSIONThere are small well-defined nodul es seen in the inner half of bothbreasts. These findings were not seen on previous studies. If thereis no suspicious palpable abnormality, bilateral 6- month followup isrecommended. FINAL ASSESSMENTBI RADS Category 3 - Probably benign. A letter regarding these results has been sent to the patient. This interpretation was rendered by a radiologist certified under theMammography Quality Standards Act of 1992 (MQSA). The mammograms werealso examined with computer-aided detection software ([employer], [employer] Reported By: CHASTITY QUIROGA M.D. 20-Aug-20089:49 DEXA BONE DENSITY STUDY (HP) Radiology Report See Note (Normal) Comments: Exam Number: [id number] BONE DENSITOMETRY HISTORYOsteoporosis. TECHNIQUE Bone densitometry of the lumbar spine and left hip was performed. Thebest criteria for evaluation of osteoporosis is the T-va lue, whichrepresents the comparison of the patient's bone mass to an expectedpeak bone mass. For most patients, the mean T-value of L1 through L4is used to evaluate the lumbar spine. Based on the newe st WorldHealth Organization classifications, the hip is evaluated by utilizingthe lower of the T-value of the total hip or the T-value of thefemoral neck. FINDINGSIn this patient, the mean T-value of L1 through L4 is -1.9 which is inthe range of osteopenia. Bone mineral density is measured at 22.7%greater than in 2001. Digital lateral view for evaluation ofvertebral deformity demonstrates no obvio us compression fractures.The T-value of the left femoral neck is -1.7 which is in the range ofosteopenia. The T-value of the total hip is -1 which is low normal.Bone mineral density is measured at 1.5% less than in 2001. TheT-value of the left femoral neck is -2 which is in the range ofosteopenia. The T-value of the total hip is -1.4 which is in therange of osteopenia. IMPRESSIONThere is osteopenia of the lumbar spine and both hips. Reported By: CHASTITY QUIROGA M.D. :34 CBCD,SMEAR DIFF BAND 1 % (Normal) Range: 0-5 CELLS COUNTED 100 (Normal) EOS 1 % (Normal) Range: 0-5 HCT 40.4 % (Normal) Range: 37-47 HGB 13.2 g/dL (Normal) Range: 12.0-16.0 LYMPH 30 % (Normal) Range: 19-41 MCH 30.6 pg (Normal) Range: 27.0-32.0 MCHC 32.6 g/dL (Normal) Range: 32-36 MCV 93.9 fL (Normal) Range: 81-99 MONOCYTE 6 % (Normal) Range: 0-10 PLT 219 K/mm3 (Normal) Range: 150-450 PLT EST SeeNote (Normal) Comments: Result: ADEQUATE RBC 4.30 {M/mm3} (Normal) Range: 4.2-5.4 RDW 14.4 % (Normal) Range: 11.6-14.6 RED CELL MORPH SeeNote {NORMAL} (Normal) Comments: Result: NORM C+C SEGS 62 % (Normal) Range: 47-70 WBC 6.7 K/mm3 (Normal) Range: 4.4-11.0 :34 COMP METABOLIC A/G 1.0 {RATIO} (Normal) Range: 0.9-2.4 ALB 3.3 g/dL (Abnormal) Range: 3.4-5.0 ALK P 78 U/L (Normal) Range: 50-136 ALT 48 U/L (Normal) Range: 30-65 AST 30 U/L (Normal) Range: 15-37 BUN 12 mg/dL (Normal) Range: 7-18 BUN/CRE 15.0 {RATIO} (Normal) Range: 10-20 CA 8.5 mg/dL (Normal) Range: 8.5-10.1 CL 105 mmol/L (Normal) Range: 98-107 CO2 26.9 mmol/L (Normal) Range: 21.0-32.0 CREAT,SERUM 0.8 mg/dL (Normal) Range: 0.6-1.0 GAP 7 (Normal) Range: 5-15 GLOB 3.3 g/dL (Normal) Range: 2.7-4.2 GLU 93 mg/dL (Normal) Range: 70-110 K 3.3 mmol/L (Abnormal) Range: 3.5-5.1 NA 139 mmol/L (Normal) Range: 136-145 T BILI 0.24 mg/dL (Normal) Range: 0.00-1.00 T PROT 6.6 g/dL (Normal) Range: 6.4-8.2 :34 D BILI 0.07 mg/dL (Normal) Range: 0.00-0.30 :34 LIPID CHOL 155 mg/dL (Normal) Comments: <200 mg/dL Desirable 200-240 mg/dL Borderline >240 mg/dL High Risk HDL 51 mg/dL (Normal) Comments: Reference Range HDL <40 mg/dL Low HDL Cholesterol HDL >or= 60 mg/dL High HDL Cholesterol LDL 77 mg/dL (Normal) Range: 0-130 TRIG 137 mg/dL (Normal) Comments: Serum Triglycerides Reference Interval Normal <150 mg/dL Borderline high 150 - 199 mg/dL High 200 - 499 mg/dL Very High > or = 500 mg/dL VLDL 27 mg/dL (Normal) Range: 5-40 :34 ROUTINE UA BILIRUBIN URINE SeeNote (Normal) Comments: Result: NEGATIVE CLARITY CLEAR (Normal) COLOR YELLOW (Normal) GLUCOSE, UR SeeNote (Normal) Comments: Result: NEGATIVE KETONE UR TRACE mg/dL (Abnormal) LEUK ESTERASE TRACE (Abnormal) NITRITE UR SeeNote (Normal) Comments: Result: NEGATIVE OCCULT BLOOD-UR SeeNote (Normal) Comments: Result: NEGATIVE pH UR 7.0 (Normal) Range: 5.0-8.0 PROT DIPSTX SeeNote (Normal) Comments: Result: NEGATIVE SP.GR. DIPSTX 1.015 (Normal) Range: 1.002-1.030 UROBILI 1.0 EU/dl (Normal) Range: 0.2 - 1.0 :34 TSH 2.24 {uIU/mL} (Normal) Range: 0.34-4.82 :34 VIT D,25 02384 41.4 ng/mL (Normal) Range: 32.0-100.0 Comments: Recent studies consider the lower limit of 32.0 ng/mL to attila threshold for optimal health.Ambrosio SAGASTUME. J Nutr. 2004;135(2):317-22.Performed At: [facility], [place] [id number] :45 CBC WITH MANUAL DIFF ([id number]) Comments: PATIENT WAS FASTINGClinical Information: [id number] PERFORMED BY: [facility] [address] [id number] Baso (Absolute) 0.0 {x10E3/uL} (Normal) Range: 0.0-0.2 Basos 0 % (Normal) Range: 0-3 Eos 4 % (Normal) Range: 0-7 Eos (Absolute) 0.3 {x10E3/uL} (Normal) Range: 0.0-0.4 Hematocrit 40.7 % (Normal) Range: 34.0-44.0 Hemoglobin 13.8 g/dL (Normal) Range: 11.5-15.0 Lymphs 30 % (Normal) Range: 14-46 Lymphs (Absolute) 2.3 {x10E3/uL} (Normal) Range: 0.7-4.5 MCH 31.6 pg (Normal) Range: 27.0-34.0 MCHC 33.9 g/dL (Normal) Range: 32.0-36.0 MCV 93 fL (Normal) Range: 80-98 Monocytes 6 % (Normal) Range: 4-13 Monocytes(Absolute) 0.5 {x10E3/uL} (Normal) Range: 0.1-1.0 Neutrophils 60 % (Normal) Range: 40-74 Neutrophils (Absolute) 4.5 {x10E3/uL} (Normal) Range: 1.8-7.8 Platelets 212 {x10E3/uL} (Normal) Range: 140-415 RBC 4.36 {x10E6/uL} (Normal) Range: 3.80-5.10 RDW 15.1 % (Abnormal) Range: 11.7-15.0 WBC 7.5 {x10E3/uL} (Normal) Range: 4.0-10.5 :45 METABOLIC PANEL, COMPREHENSIVE Comments: PATIENT WAS FASTINGPERFORMED BY: [facility] [facility] [id number] ([id number]) A/G Ratio 1.5 (Normal) Range: 1.1-2.5 Albumin, Serum 4.0 g/dL (Normal) Range: 3.5-4.8 Alkaline Phosphatase, S 86 [iU]/L (Normal) Range: 25-165 ALT (SGPT) 22 [iU]/L (Normal) Range: 0-40 AST (SGOT) 19 [iU]/L (Normal) Range: 0-40 Bilirubin, Total 0.3 mg/dL (Normal) Range: 0.1-1.2 BUN 15 mg/dL (Normal) Range: 5-26 BUN/Creatinine Ratio 20 (Normal) Range: 8-27 Calcium, Serum 9.6 mg/dL (Normal) Range: 8.5-10.6 Carbon Dioxide, Total 27 mmol/L (Normal) Range: 20-32 Chloride, Serum 105 mmol/L (Normal) Range: 97-108 Creatinine, Serum 0.74 mg/dL (Normal) Range: 0.57-1.00 eGFR >59 mL/min/1.73 (Normal) eGFR AfricanAmerican >59 mL/min/1.73 Comments: Note: Persistent reduction for 3 months or more in an eGFR<60 mL/min/1.73 m2 defines CKD. Patients with eGFR values>/=60 mL/min/1.73 m2 may also have CKD if evidence of persistentproteinuria is (Normal) present. Additional information may be found [email or web address]. Globulin, Total 2.6 g/dL (Normal) Range: 1.5-4.5 Glucose, Serum 97 mg/dL (Normal) Range: 65-99 Potassium, Serum 3.5 mmol/L (Normal) Range: 3.5-5.2 Protein, Total, Serum 6.6 g/dL (Normal) Range: 6.0-8.5 Sodium, Serum 144 mmol/L (Normal) Range: 135-145 :45 TSH ([id number]) Comments: PATIENT WAS FASTINGPERFORMED BY: [facility] [facility] [id number] TSH 1.660 {uIU/mL} (Normal) Range: 0.450-4.500 :45 LIPID PANEL (25667) Comments: PATIENT WAS FASTINGPERFORMED BY: [facility] [facility] [id number] Cholesterol, Total 153 mg/dL (Normal) Range: 100-199 HDL Cholesterol 60 mg/dL (Normal) Comments: According to ATP-III Guidelines, HDL-C >59 mg/dL is considered anegative risk factor for CHD. LDL Cholesterol Calc 75 mg/dL (Normal) Range: 0-99 LDL/HDL Ratio 1.3 {ratio_units} (Normal) Range: 0.0-3.2 Triglycerides 90 mg/dL (Normal) Range: 0-149 VLDL Cholesterol Cas 18 mg/dL (Normal) Range: 5-40 Plan of Care Name Dates Details Instructions Fall with significant injury : Eprescribed prescriptions (G8553) Indication: Fall with significant injury Former smoker : Eprescribed prescriptions (G8553) Indication: Former smoker Mass of soft tissue of right lower extremity : Eprescribed prescriptions (G8553) Indication: Mass of soft tissue of right lower extremity Skin lesion of back : Follow up if no improvement or if symptoms worsen Indication: Skin lesion of back Impaired Fasting Glucose : Eprescribed prescriptions (G8553) Indication: Impaired Fasting Glucose Encounter for annual general medical examination with abnormal findings in adult : Eprescribed prescriptions (G8553) Indication: Encounter for annual general medical examination with abnormal findings in adult Impaired Fasting Glucose : Eprescribed prescriptions (G8553) Indication: Impaired Fasting Glucose [facility] Wellness Physical : Eprescribed prescriptions (G8553) Indication: [facility] Physical Other hyperlipidemia : *Cholesterol - Medication Side Effects Indication: Other hyperlipidemia Encounter for annual general medical examination with abnormal findings in adult : Eprescribed prescriptions (G8553) Indication: Encounter for annual general medical examination with abnormal findings in adult Incisional infection, subsequent encounter : Eprescribed prescriptions (G8553) Indication: Incisional infection, subsequent encounter Other fatigue : Eprescribed prescriptions (G8553) Indication: Other fatigue Chronic obstructive pulmonary disease, unspecified COPD type : Eprescribed prescriptions (G8553) Indication: Chronic obstructive pulmonary disease, unspecified COPD type Vaginal atrophy : Follow up if no improvement or if symptoms worsen Indication: Vaginal atrophy Vaginal discharge : Eprescribed prescriptions (G8553) Indication: Vaginal discharge Pre-operative examination : Eprescribed prescriptions (G8553) Indication: Pre-operative examination Hypertension, benign : Eprescribed prescriptions (G8553) Indication: Hypertension, benign Hypertension, benign : Eprescribed prescriptions (G8553) Indication: Hypertension, benign Impaired Fasting Glucose : Diet, Exercise, and Wt loss Indication: Impaired Fasting Glucose Encounter for Medicare annual wellness exam : fall reduction handout Indication: Encounter for Medicare annual wellness exam Encounter for Medicare annual wellness exam : elderly packet given Indication: Encounter for Medicare annual wellness exam Well woman exam : Pelvic/Bimanual/Rectal/Breast Exam Indication: Well woman exam Need for prophylactic vaccination and inoculation against influenza : Flu (Influenza) *: flu Indication: Need for prophylactic vaccination and inoculation against influenza Need for prophylactic vaccination and inoculation against influenza : Flu (Influenza) *: flu shot Indication: Need for prophylactic vaccination and inoculation against influenza Impaired Fasting Glucose : Diet, Exercise, and Wt loss Indication: Impaired Fasting Glucose Impaired Fasting Glucose : Diabetes and Illness: diabetes Indication: Impaired Fasting Glucose Hypertension, benign : High Blood Pressure (Essential Hypertension) *: high blood pressure Indication: Hypertension, benign Chronic obstructive pulmonary disease, unspecified COPD type : Chronic Obstructive Pulmonary Disease (COPD) *: coughing Indication: Chronic obstructive pulmonary disease, unspecified COPD type Unspecified bacterial pneumonia : *Antibiotic Usage Education - Female Indication: Unspecified bacterial pneumonia Planned Observations CBC W/AUTO DIFF WBC (26949)Indication: Chest pain on breathing On: 91-Qmq-07299:47 Request Comments: stat METABOLIC PANEL, COMPREHENSIVE (12807)Indication: Chest pain on breathing On: 92-Mum-08884:47 Request Comments: stat D-Dimer (95993)Indication: Chest pain on breathing On: 00-Wau-12161:47 Request Comments: stat Vitamin D Hydroxy (93307)Indication: Osteoporosis On: 19-Btq-136196:44 Request CBC W/AUTO DIFF WBC (79387)Indication: Hypertension, benign On: 83-Ehp-201164:44 Request METABOLIC PANEL, COMPREHENSIVE (87983)Indication: Hypertension, benign On: 68-Vek-990829:44 Request LIPID PANEL (91872)Indication: Impaired Fasting Glucose On: 11-Xhs-737141:43 Request METABOLIC PANEL, COMPREHENSIVE (41677)Indication: Hypertension, benign On: 7-Eqw-888557:22 Request METABOLIC PANEL, COMPREHENSIVE (19223)Indication: Hypertension, benign On: 8-Mgi-088920:32 Request NuSwab STD (trich/BV/GC/glen W/ Herpes) (59692)Indication: Vaginal discharge On: 89-Rkm-583308:42 Request MICROALBUMIN: CREATININE RATIO (17820) AND (58494)Indication: Impaired Fasting Glucose On: 21-Ebi-677610:35 Request LIPID PANEL (22719)Indication: Other hyperlipidemia On: 11-Nci-306405:35 Request CBC W/AUTO DIFF WBC (95826)Indication: Hypertension, benign On: 05-Ked-039860:35 Request METABOLIC PANEL, COMPREHENSIVE (81963)Indication: Hypertension, benign On: 49-Uim-759198:35 Request TSH (08597)Indication: Acquired hypothyroidism On: 91-Nvu-209086:35 Request Vitamin D Hydroxy (57860)Indication: Osteoporosis On: 1-Vuo-231095:35 Request CBC W/AUTO DIFF WBC (25882)Indication: Colon Polyp On: 4-Sts-592851:34 Request LIPID PANEL (11195)Indication: Other hyperlipidemia On: 0-Dsg-528173:34 Request METABOLIC PANEL, COMPREHENSIVE (02090)Indication: Hypertension, benign On: 4-Yjg-539674:34 Request CBC W/AUTO DIFF WBC (36673)Indication: Epistaxis On: 0-Bkl-262206:36 Request TSH (02694)Indication: Acquired hypothyroidism On: 9-Bth-200042:34 Request METABOLIC PANEL, COMPREHENSIVE (13117)Indication: Hypertension, benign On: 5-Rrz-066888:33 Request LIPID PANEL (79298)Indication: Other hyperlipidemia On: 1-Oxz-885064:33 Request CBC with auto diff (94550)Indication: Cramps, extremity On: 6-Vjb-632885:31 Request METABOLIC PANEL, COMPREHENSIVE (30047)Indication: Cramps, extremity On: :31 Request LIPID PANEL (78578)Indication: Other hyperlipidemia On: :26 Request CBC W/AUTO DIFF WBC (87630)Indication: Hypertension, benign On: : Request METABOLIC PANEL, COMPREHENSIVE (52250)Indication: Impaired Fasting Glucose On: : Request Hemoglobin Glyclated (HGB A1C) (00632)Indication: Impaired Fasting Glucose On: 27-Jys-127460: Request TSH (05524)Indication: Hypertension, benign On: :06 Request ASSAY, TROPONIN, QUANTITATIVE (aka Troponin I) (16272)Indication: Chest pain On: 70-Gsd-416117:25 Request D-Dimer (73735)Indication: Chest pain On: 76-Emj-842334:25 Request Comments: stat TSH (18122)Indication: Chest pain On: 69-Ctb-644691:25 Request CBC WITH MANUAL DIFF (19372)Indication: Chest pain On: 74-Rnz-973005:25 Request HEPATIC FUNCTION PANEL (00025)Indication: Other hyperlipidemia On: 27-Ucn-838884:24 Request Vitamin D Hydroxy (83097)Indication: Osteoporosis On: 20-Fll-654093:23 Request Planned Encounters Medical; [facility] 3 Month FU - On: 15-May-2018 11:00 [facility] Fast DO, Meli A Fast DO, Meli A Planned Procedures COMPUTED TOMOGRAPHY ANGIOGRAPHY OF On: 16-Mar-2018 Intent CHEST FOR PULMONARY EMBOLISM Comments: stat (69138)By: Fast DO, Meli A Fast DO, Meli A Radiology - Humerus - LeftBy: Fast On: 16-Mar-2018 Intent DO, Meli A Fast DO, Meli A Comments: stat call wet read CHEST XRAY, PA & LATERAL ([id number])By: On: 16-Mar-2018 Intent Fast DO, Meli A Fast DO, Meli A Comments: stat- call results Flu Vaccine (Quadrivalent) 10148To: On: 06-Feb-2018 Intent Fast DO, Meli A Fast DO, Meli A Comments: Lot #[id number]-L dltd, IMDose prefilled syringegiven by: Gael reviewed and ABN signed Cartoid DopplerBy: Fast DO, Meli A On: 06-Nov-2017 Intent Fast DO, Meli A MRI OF RIGHT THIGH WITH CONTRAST On: 06-Nov-2017 Intent ([id number])By: Meli Gómez DO A Rico Comments: growing soft tissue mass right thigh with pain DO, Meli A ELECTROCARDIOGRAM, COMPLETE (ECG) On: 17-Jul-2017 Intent (48133)By: Meli Gómez DO A Rico Comments: ekg showed normal sinus rhythym, normal axis, no acute st/t wave changes irbb DO, Meli A PNEUM VAC ADLT/IMUMNOSPR, SBC/INTRM On: 17-Jul-2017 Intent ([id number])By: Meli Gómez DO A Rico Comments: pneumovax prefilled syringe injectionlot: [id number]: 12/27/18L DELT IMpt tolerated wellAD 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 STORE CLERK DO, Meli A SCREENING DIGITAL TOMOSYNTHESIS OF On: 22-Mar-2017 Intent BREAST ([id number])By: Rico LOMELI Meli A Comments: june Fast DO Meli A Flu Vaccine (Quadrivalent) 33449Es: On: 16-Jan-2017 Intent Fast DO, Mlei A Fast DO, Meli A Comments: Lot:[id number]:07/2017Dose:0.5mLRoute:IMSite:L DltdGiven By:ROSEANNA signed Echo CompleteBy: Fast DO, Meli A On: 16-Dec-2016 Intent Fast DO, Meli A DEXA SCAN AXIAL SKELETON (10222)By: On: 16-Dec-2016 Intent Fast DO, Meli A Fast DO, Meli A Radiology - Lumbar SpineBy: Fast On: 07-Sep-2016 Intent DO, Meli A Fast DO, Meli A ELECTROCARDIOGRAM, COMPLETE (ECG) On: 07-Jun-2016 Intent (69420)By: Rico LOMELI Meli A Rico Comments: ekg showed normal sinus rhythym, normal axis, no acute st/t wave changes sinus rsr no change DO, Meli A Cartoid DopplerBy: Fast DO, Meli A On: 07-Jun-2016 Intent Fast DO, Meli A Comments: bilateral ELECTROCARDIOGRAM, COMPLETE (ECG) On: 26-Feb-2016 Intent ([id number])By: Fast DO, Meli A Rico Comments: no chargeekg- sinus rsr normal axis no acute st/t wave changes DO, Meli A MAMMOGRAM, SCREENING, BOTH BREAST On: 26-Feb-2016 Intent ([id number])By: Fast DO, Meli A Fast DO, Meli A Flu Vaccine (Quadrivalent) [id number]: On: 05-Feb-2016 Intent Fast DO, Meli A Fast DO, Meli A Comments: InfluenzaLot #Lot [id number]/30/17Site-L dltd, IMDose prefilled syringeVIS and ABN signedgiven by:as, GROCERY STORE CLERK Radiology - Chest- PA and LatBy: On: 04-Dec-2015 Intent Fast DO, Meli A Fast DO, Meli A Comments: stat Echo CompleteBy: Fast DO, Meli A On: 20-May-2015 Intent Fast DO, Meli A MAMMOGRAM, SCREENING, BOTH BREAST On: 25-Feb-2015 Intent ([id number])By: Fast DO, Meli A Rico Comments: andry DO Meli A Cartoid DopplerBy: Fast DO, Meli A On: 25-Feb-2015 Intent Fast DO, Meli A Comments: apr DEXA SCAN AXIAL SKELETON ([id number])By: On: 21-Oct-2014 Intent Fast DO, Meli A Fast DO, Meli A EKG (72977)By: Fast DO, Meli A On: 18-Jun-2014 Intent Fast DO, Meli A Comments: ekg showed normal sinus rhythym, normal axis, no acute st/t wave changes Prevnar 13 ([id number])By: Fast DO, On: 31-Mar-2014 Intent Meli A Fast DO, Meli A Comments: [id number] arm, IMAS Cartoid DopplerBy: Fast DO, Meli A On: 31-Mar-2014 Intent Fast DO, Meli A BILATERAL MAMMOGRAMS ([id number])By: On: 31-Mar-2014 Intent Fast DO, Meli A Fast DO, Meli A Eprescribed prescriptions On: 24-Jul-2013 Intent (G8553)By: Fast DO, Meli A Fast DO, Meli A Echo CompleteBy: Fast DO, Meli A On: 18-Mar-2013 Intent Fast DO, Meli A Cartoid DopplerBy: Fast DO, Meli A On: 18-Mar-2013 Intent Fast DO, Meli A MAMMOGRAM, SCREENING, BOTH BREASTS On: 18-Mar-2013 Intent ([id number])By: Fast DO, Meli A Fast DO, Meli A Eprescribed prescriptions On: 18-Mar-2013 Intent (G8553)By: Alisson Espinal FLU VAC, SPLIT, >3 YEARS, INTRAMUSC On: 08-Jan-2013 Intent (03900)By: Francoise Regalado Comments: lot [id number] 2014site/route L dennis, IMamt 0.5mlVIS and ABN signed when applicableChelsea, EDUCATION SITE MANAGER IMMUNIZ ADMNIN, 1 VAC, SNGL/COMBO On: 08-Jan-2013 Intent ([id number])By: Francoise Regalado Echo CompleteBy: Fast DO, Meli A On: 12-Nov-2012 Intent Fast DO, Meli A DXA, BONE DENSITY, AXIAL SKELETON On: 06-Aug-2012 Intent ([id number])By: Rico DO Meli A Fast DO, Meli A PNEUM VAC ADLT/IMUMNOSPR, SBC/INTRM On: 07-May-2012 Intent ([id number])By: Rico DO Meli A Fast Comments: Lot: [id number]: [id number]: 0.5mlRoute: IMSite: L deltoidwithout difficulty or c/o voicedGiven by: BOBBY Hernandez DO, Meli A ADMINISTRATION OF PNEUMOCOCCAL On: 07-May-2012 Intent VACCINE (G0009)By: Rico DO, Meli A Fast DO, Meli A Eprescribed prescriptions On: 07-May-2012 Intent (G8553)By: Alisson Espinal CurettesBy: Ciesa Lilian CALVILLO On: 08-Feb-2012 Intent Ear Irrigation (34179)By: Ciesa On: 08-Feb-2012 Intent Lilian CALVILLO Breast Screening - BilateralBy: On: 23-Jan-2012 Intent Fast DO, Meli A Fast DO, Meli A Comments: mid nov FLU VAC, SPLIT, >3 YEARS, INTRAMUSC On: 23-Jan-2012 Intent (34881)By: Alisson Espinal Comments: Lot #[id number]/30/13Site-left deltoidgiven by: Chelsea Tijerina LPN ADMINISTRATION OF INFLUENZA VIRUS On: 23-Jan-2012 Intent VACCINE (G0008)By: Alisson Espinal PET ScanBy: Fast DO, Meli A Fast On: 16-Sep-2011 Intent DO, Meli A CT - ChestBy: Fast DO, Meli A Fast On: 22-Aug-2011 Intent DO, Meli A Comments: 2 weeks Eprescribed prescriptions On: 22-Aug-2011 Intent (G8553)By: Fast DO, Meli A Fast DO, Meli A Radiology - Chest- PA and LatBy: On: 18-Jul-2011 Intent Fast DO, Meli A Fast DO, Meli A Comments: 1 month Pulse Oximetry (94204)By: Kylie, On: 18-Jul-2011 Intent Alisson Comments: 92% Radiology - ChestBy: Fast DO, Meli On: 15-Jul-2011 Intent A Fast DO, Meli A Comments: PA & LAT Spirometry ([id number])By: Fast DO, On: 11-Jul-2011 Intent Meli A Fast DO, Meli A Comments: good effort and curve normal MRI - BrainBy: Fast DO, Meli A On: 11-Jul-2011 Intent Fast DO, Meli A Comments: attn cerebellum Cartoid DopplerBy: Fast DO, Meli A On: 11-Jul-2011 Intent Fast DO, Meli A EKG (25974)By: Fast DO, Meli A On: 11-Jul-2011 Intent Fast DO, Meli A Comments: ekg showed normal sinus rhythym, normal axis, no acute st/t wave changes Nuclear Stress Test/Stress On: 11-Jul-2011 Intent SPECT/AdenosineBy: Fast DO, Meli A Fast DO, Meli A Radiology - Chest- PA and LatBy: On: 11-Jul-2011 Intent Fast DO, Meli A Fast DO, Meli A Pulse Oximetry ([id number])By: Fast DO, On: 11-Jul-2011 Intent Meli A Fast DO, Meli A Ultrasound - GallbladderBy: Fast On: 28-Feb-2011 Intent DO, Meli A Fast DO, Meli A TD Injection , IM (69044)By: On: 28-Feb-2011 Intent Alisson Espinal Comments: 2007 IMMUNIZ ADMNIN, 1 VAC, SNGL/COMBO On: 26-Jan-2011 Intent (69107)By: Izzy Meredith LPN Comments: Lot #[id number]-L arm, IMDose prefilledgiven by:BOBBY Heard FLU VAC, SPLIT, >3 YEARS, INTRAMUSC On: 26-Jan-2011 Intent ([id number])By: Izzy Meredith LPN MAMMOGRAM, SCREENING, BOTH BREASTS On: 26-Nov-2010 Intent (30798)By: Fast DO, Meli A Fast Comments: nov DO, Meli A Echo CompleteBy: Fast DO, Meli A On: 26-Nov-2010 Intent Fast DO, Meli A Spirometry (80592)By: Kylie, On: 26-Nov-2010 Intent Alisson Comments: good effort and curve -mild obst DXA, BONE DENSITY, AXIAL SKELETON On: 26-Nov-2010 Intent (07410)By: Fast DO, Meli A Fast Comments: nov DO, Meli A EKG (31892)By: Alisson Espnial On: 18-Aug-2010 Intent Comments: ekg showed normal sinus rhythym, normal axis, no acute st/t wave changes MAMMOGRAM, SCREENING, BOTH BREASTS On: 22-Feb-2010 Intent ([id number])By: Fast DO, Meli A Fast DO, Meli A IMMUNIZ ADMNIN, 1 VAC, SNGL/COMBO On: 25-Jan-2010 Intent ([id number])By: Izzy Meredith LPN Comments: Lot #[id number]-4/11Site-L DLTD, IMDose 0.5mlgiven by:BOBBY HASSAN FLU VAC, SPLIT, >3 YEARS, INTRAMUSC On: 25-Jan-2010 Intent ([id number])By: Izzy Merdeith LPN Echo CompleteBy: Fast DO, Meli A On: 21-Aug-2009 Intent Fast DO, Meli A Spirometry (59784)By: Kylie On: 21-Aug-2009 Intent Alisson Comments: good effort an dcurve mild obst EKG (21884)By: Alisson Espinal On: 21-Aug-2009 Intent Comments: ekg- sinus anusha no acute st t wave changes Venous DopplerBy: Fast DO, Meli A On: 27-Feb-2009 Intent Fast DO, Meli A Comments: left leg- today if possible Flu Vaccine, Split IM (21431)By: On: 23-Jan-2009 Intent Breezy BOBBYAlyssia Comments: Lot #[id number] deltoidgiven by:[facility] Radiology - Lumbar SpineBy: Fast On: 12-Dec-2008 Intent DO, Meli A Fast DO, Meli A Breast Diagnostic - BilateralBy: On: 12-Dec-2008 Intent Fast DO, Meli A Fast DO, Meli A Comments: nov EKG (09700)By: Fast DO, Meli A On: 11-Aug-2008 Intent Fast DO, Meli A Comments: ekg- sinus rhyth m with nonspecific st t changes inf and lat -- poor r wave progression Renal Duplex ScanBy: Fast DO, Meli On: 11-Aug-2008 Intent A Fast DO, Meli A Nuclear Stress Test/Stress On: 11-Aug-2008 Intent SPECT/TreadmillBy: Fast DO, Meli A Fast DO, Meli A LE Arterial Exam with TreadmillBy: On: 11-Aug-2008 Intent Fast DO, Meli A Fast DO, Meli A Echo CompleteBy: Fast DO, Meli A On: 11-Aug-2008 Intent Fast DO, Meli A Cartoid DopplerBy: Fast DO, Meli A On: 11-Aug-2008 Intent Fast DO, Meli A MAMMOGRAM, SCREENING, BOTH BREASTS On: 11-Aug-2008 Intent ([id number])By: Fast DO, Meli A Fast Comments: screenign DO, Meli A DXA, BONE DENSITY, AXIAL SKELETON On: 11-Aug-2008 Intent ([id number])By: Fast DO, Meli A Fast DO, Meli A Instructions Name Dates Details Fall with significant injury : How to access health information online Indication: Fall with significant injury Fall with significant injury : How to access health information online - Detail Indication: Fall with significant injury Fall with significant injury : Patient Instructions Indication: Fall with significant injury Former smoker : How to access health information online Indication: Former smoker Former smoker : How to access health information online - Detail Indication: Former smoker Former smoker : Patient Instructions Indication: Former smoker Mass of soft tissue of right lower extremity : How to access health information online Indication: Mass of soft tissue of right lower extremity Mass of soft tissue of right lower extremity : How to access health information online - Detail Indication: Mass of soft tissue of right lower extremity Mass of soft tissue of right lower extremity : Patient Instructions Indication: Mass of soft tissue of right lower extremity Nonsmoker : How to access health information online Indication: Nonsmoker Nonsmoker : How to access health information online - Detail Indication: Nonsmoker Nonsmoker : Patient Instructions Indication: Nonsmoker Impaired Fasting Glucose : How to access health information online Indication: Impaired Fasting Glucose Impaired Fasting Glucose : How to access health information online - Detail Indication: Impaired Fasting Glucose Impaired Fasting Glucose : Patient Instructions Indication: Impaired Fasting Glucose Encounter for annual general medical examination with abnormal findings in adult : How to access health information online Indication: Encounter for annual general medical examination with abnormal findings in adult Encounter for annual general medical examination with abnormal findings in adult : How to access health information online - Detail Indication: Encounter for annual general medical examination with abnormal findings in adult Encounter for annual general medical examination with abnormal findings in adult : Patient Instructions Indication: Encounter for annual general medical examination with abnormal findings in adult Impaired Fasting Glucose : How to access health information online Indication: Impaired Fasting Glucose Impaired Fasting Glucose : How to access health information online - Detail Indication: Impaired Fasting Glucose Impaired Fasting Glucose : Patient Instructions Indication: Impaired Fasting Glucose [facility] : How to access health information online - Detail Indication: [facility] : How to access health information online Indication: [facility] : Patient Instructions Indication: [facility] Chronic obstructive pulmonary disease, unspecified COPD type : How to access health information online Indication: Chronic obstructive pulmonary disease, unspecified COPD type Chronic obstructive pulmonary disease, unspecified COPD type : How to access health information online - Detail Indication: Chronic obstructive pulmonary disease, unspecified COPD type Encounter for annual general medical examination with abnormal findings in adult : Patient Instructions Indication: Encounter for annual general medical examination with abnormal findings in adult Incisional infection, subsequent encounter : How to access health information online Indication: Incisional infection, subsequent encounter Incisional infection, subsequent encounter : How to access health information online - Detail Indication: Incisional infection, subsequent encounter Incisional infection, subsequent encounter : Patient Instructions Indication: Incisional infection, subsequent encounter Other hyperlipidemia : How to access health information online - Detail Indication: Other hyperlipidemia Other hyperlipidemia : How to access health information online Indication: Other hyperlipidemia Other hyperlipidemia : How to access health information online - Detail Indication: Other hyperlipidemia Other hyperlipidemia : Patient Instructions Indication: Other hyperlipidemia Other fatigue : Patient Instructions Indication: Other fatigue Chronic obstructive pulmonary disease, unspecified COPD type : How to access health information online - Detail Indication: Chronic obstructive pulmonary disease, unspecified COPD type Chronic obstructive pulmonary disease, unspecified COPD type : Patient Instructions Indication: Chronic obstructive pulmonary disease, unspecified COPD type Vaginal discharge : How to access health information online Indication: Vaginal discharge Vaginal discharge : How to access health information online - Detail Indication: Vaginal discharge Vaginal discharge : Patient Instructions Indication: Vaginal discharge Pre-operative examination : How to access health information online - Detail Indication: Pre-operative examination Pre-operative examination : How to access health information online Indication: Pre-operative examination Pre-operative examination : Patient Instructions Indication: Pre-operative examination Hypertension, benign : How to access health information online Indication: Hypertension, benign Hypertension, benign : How to access health information online - Detail Indication: Hypertension, benign Hypertension, benign : Patient Instructions Indication: Hypertension, benign Impaired Fasting Glucose : Patient Instructions Indication: Impaired Fasting Glucose Hypertension, benign : Patient Instructions Indication: Hypertension, benign Pre-operative examination : Patient Instructions Indication: Pre-operative examination Hypertension, benign : Patient Instructions Indication: Hypertension, benign Impaired Fasting Glucose : How to access health information online Indication: Impaired Fasting Glucose Impaired Fasting Glucose : How to access health information online - Detail Indication: Impaired Fasting Glucose Impaired Fasting Glucose : Patient Instructions Indication: Impaired Fasting Glucose Other hyperlipidemia : Patient Instructions Indication: Other hyperlipidemia Abdominal pain, acute, right upper quadrant : Patient Instructions Indication: Abdominal pain, acute, right upper quadrant Impaired Fasting Glucose : Patient Instructions Indication: Impaired Fasting Glucose Impaired Fasting Glucose : Patient Instructions Indication: Impaired Fasting Glucose Hypertension, benign : Patient Instructions Indication: Hypertension, benign Hypertension, benign : Patient Instructions Indication: Hypertension, benign Encounters Office Visit On: 16-Mar-2018 9:02 Encounter Reason: Follow up ER - Reason for hospitalization note: (Went to [facility] on 03/13. Slipped on ice in driveway, fell on back and hit head). Patient has been compliant with instructions. Current medication use: no si End: 18-Mar-2018 19:51 de effects and compliant with dosing regimen. The patient does not feel well (Does not feel well, a little better than how she did feel. Oxygen has been running low and get SOB with any kind of exertion . When she fell she fell backwards on her back. Hurts to cough and take deep breaths. Feels like a cement block on her chest. Head is still hurting along with L shoulder. She did lose consciousness.) an d has decreased energy level. Note for Follow up ER: she passed out - neighbor witnessed - out couple minutes - he said she was confused - she called son in [place] to take her to er instead of her son locally- - her son called local son and he took her to er- they noticed her oxygen low in er and did ct of head and cervical spine and xrya of shoulder- her chest didnt bother her until next da y- the pain in chest feels muscular- if sitting not hurting- and walks ok- chest hurts to deep breath and cough- headache and lump on head getting better- she taking es tylenol and norco if needed- her shoulder does feel better but still pretty painfulEncounter Diagnosis: Former smoker, BMI 30.0-30.9,adult, Fall with significant injury, Chest pain on breathing, Shortness of breath, Left arm pain, Left shoulder pain, Neck pain, acute, Old lacunar stroke without late effect, D-dimer, elevated [facility] Office Visit On: 06-Feb-2018 10:56 Encounter Reason: Follow up for chronic medical issues - The patient feels well with no complaints, has good energy level and is sleeping well (sleeping ??better now but wasn't for awhle because neighbor was robbed). Pat End: 06-Feb-2018 22:17 ient has been compliant with instructions. Current medication use: no side effects and compliant with dosing regimen. Patient sleeps 8 hours per night. Nutrition: balanced diet. The medical issues the p atient is following up for include All identified problems below. Note for Follow up for chronic medical issues: feeling good breathing hasnt changed- bp is good and weight stable-msaw Dr Escobar and s he didnt get very far with him but her leg feels alot better- no pain- taking rosuvastatin daily and tolerating - and sugar up bit she got off track too much chocolate we discussed, [ADDITIONAL REASON] Follow up tests - Date: (01/31 blood work). Encounter Diagnosis: BMI 30.0-30.9,adult, Former smoker, Need for prophylactic vaccination and inoculation against influenza (Renamed from Need for immunization against influenza), Chronic obstructive pulmonary disease, unspecified COPD type, Impaired Fasting Glucose (790.21), Acquired hypothyroidism, Bilateral carotid artery stenosis, Osteoporosis (733.00), Hypertension, benign, Aortic valve disorder, Mass of soft tissue of right lower extremity [facility] Phone Encounter On: 17-Nov-2017 11:56 Encounter Diagnosis: Mass of soft tissue of right lower extremity End: 17-Nov-2017 12:10 [facility] Office Visit On: 06-Nov-2017 11:24 Encounter Reason: Follow up tests - Date: (10/25 blood work)., [ADDITIONAL REASON] Follow up for chronic medical issues - The patient feels well with minor complai End: 06-Nov-2017 13:57 nts (concerned about a lymph node in her R hip. Said she spoke with Dr. Gómez about it previously but it has been causing some discomfort in hip and down the leg.), has good energy level and is sleeping well. Patient has been compliant with instructions. Current medication use: no side effects and compliant with dosing regimen. Patient sleeps 8 hours per night. Nutrition: balanced diet. The medical iss ues the patient is following up for include All identified problems below. Note for Follow up for chronic medical issues: noticed a couple months ago fatty tumor getting bigger and achey leg- she canc elled appt with [facility] as they dont take her insurance and made appt with [facility] - no thing has changed on skin- bp is good- she tried to add more rosuvastatin and couldnt tolerate- right leg no hurt to s it hurts to lift to walk or put clothes on stairs and stand along time- hurts bursae- not hurt to lay- breathing about the same Encounter Diagnosis: Former smoker, BMI 30.0-30.9,adult, Mass of soft tissue of right lower extremity, Gastroesophageal reflux disease without esophagitis, Neoplasm of uncertain behavior of skin, Bilateral carotid artery stenosis, Impaired Fasting Glucose (790.21), Hypertension, benign, Chronic obstructive pulmonary disease, unspecified COPD type, Acquired hypothyroidism, Other hyperlipidemia [facility] Office Visit On: 17-Jul-2017 13:35 Encounter Reason: Physical female exam - Note for Physical exam: SAW ANTHONY AND he said cured from lung cancer and he will see her yearlynow - has been 6 years- we talked about medic alert no falls and her energy is ? End: 31-Jul-2017 21:28 ?better and bp is good- and she cut out red meat and trying to do her leg exercises- she is sleepign well with trazadone- taking rosuvastin three times a week and toleratingEncounter Diagnosis: BMI 30.0-30.9,adult, Nonsmoker, Pneumococcal vaccination given, [facility], Chronic obstructive pulmonary disease, unspecified COPD type, Hypertension, benign, Impaired Fasting Glucose (790.21), Gastroesophageal reflux disease without esophagitis, Neoplasm of uncertain behavior of skin, Other hyperlipidemia, PVD (peripheral vascular disease) [facility] Office Visit On: 03-Apr-2017 11:13 Encounter Reason: Skin Lesions - The patient is self referred. The patient presented with a single lesion. There is itching associated with the lesion(s). Symptoms include single skin lesion. Lesion location includes the End: 03-Apr-2017 11:41 left trunk (back). Note for Skin lesions: Lesion on low back left side 1.5cm round itchingEncounter Diagnosis: BMI 30.0-30.9,adult, Former smoker, Skin lesion of back [facility] Office Visit On: 22-Mar-2017 10:56 Encounter Reason: Follow up for chronic medical issues - The patient feels well with minor complaints, has decreased energy level and is sleeping well. Patient has been compliant with instructions. Current medication use End: 23-Mar-2017 19:11 : no side effects and compliant with dosing regimen. Patient sleeps 8 hours per night. Nutrition: balanced diet. The medical issues the patient is following up for include All identified problems below. Note for Follow up for chronic medical issues: a lot of fatigue. Has to make herself get up to do stuff.- we talked about having her overnight oxygen level checked and with exertion and she said she doesnt want to wear oxygen we talked about puts more stress on heart and lung and risk for ??stroke and heart attack- she had testing for this a year ago and anthony told her she needed oxygen then and she said no- she stopped rosuvastatin because tried qod and still caused her muscle aching- she not taking coenzyme q 10- she working on diet, [ADDITIONAL REASON] Follow up tests - Date: (02/2017). 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.21), BMI 30.0-30.9,adult, Former smoker, Acquired hypothyroidism, Osteoporosis (733.00), Hypertension, benign, Gastroesophageal reflux disease without esophagitis, Bilateral carotid artery stenosis, Encounter for screening mammogram for breast cancer (Renamed from Encounter for screening mammogram for malignant neoplasm of breast), Aortic valve disorder, Fatigue [facility] Office Visit On: 16-Jan-2017 10:59 Encounter Reason: Injections - The medication the patient is here to receive is other (flu).Encounter Diagnosis: Need for prophylactic vaccination and inoculation against influenza (Renamed from Need for immunization against influenza) End: 16-Jan-2017 11:02 [facility] Office Visit On: 16-Dec-2016 10:22 Encounter Reason: Follow up tests - Date: (12/08 blood work)., [ADDITIONAL REASON] Follow up for chronic medical issues - The patient does not feel well (just had End: 19-Dec-2016 17:53 eye exam and was told losing vision in L eye. Saw Dr. Nicholas for her L leg pain and now set up to see pain management.), has decreased energy level (pain in leg) and is sleeping well. Patient has been compliant with instructions. Current medication use: no side effects and compliant with dosing regimen. Patient sleeps 8 hours per night. Nutrition: balanced diet. The medical issues the patient is foll owing up for include All identified problems below. Note for Follow up for chronic medical issues: had to see eye doc has loss of central vision left eye - and has to see retinal specialist- having tr lizzyble reading-- its macular degeneration- ?has that appt this month- saw benedict - and had mri of lower back has buldging disc L3-L4 and L4-L5 so seeing pain management- Dr Navarro- this month as well - she thinks leg pain started after wearing support hose so quit wearing and seems better - bp is good and weight is stable- she thinks may have missed some thyroid pills while on jose guadalupe so no change in meds , [ADDITIONAL REASON] Annual Medicare Exam - The patient had reviewed and updated the family history, medication/s, past medical history and social history. Yes the patient did have ( Alert) a mini mental status exam done today. The activities of daily living the patient needs help with are none. The patient has driven in past 6 months, fallen in the past 6 months and put handrails in bathroom, bu t the patient has not had fecal incontinence, had urinary incontinence, missed or ran out of medications to soon, gotten lost, has a medalert necklace or bracelet or put area rugs through house. The gianfranco molina has completed the following preventative measures: mammography (04/2016) and colonoscopy (within past 10 yrs, Dr. Tavares. Does not need anymore). The patient does have durable power of commercial real estate attorney and living will. The patient has noticed nothing from the geriatic depression scale. Other providers contributing to the patient's care are police magistrate (Dr. Cruz), surgeon (Dr. Nicholas) and other: (Dr. Ludwig - eyes Dr. Fowler - dentist). Encounter Diagnosis: Former smoker, BMI 30.0-30.9,adult, Impaired Fasting Glucose (790.21), Encounter for annual general medical examination with abnormal findings in adult, Hypertension, benign, Chronic obstructive pulmonary disease, unspecified COPD type, Acquired hypothyroidism, Osteoporosis (733.00), Postmenopausal (Renamed from Postmenopausal status), Other hyperlipidemia, Aortic valve disorder [facility] Office Visit On: 07-Sep-2016 9:44 Encounter Reason: Follow up for chronic medical issues - The patient feels well with minor complaints (left leg pain), has good energy level and is sleeping well. Patient has been compliant with instructions. Current med End: 07-Sep-2016 15:27 ication use: no side effects and compliant with dosing regimen. Patient sleeps 8 hours per night. Nutrition: balanced diet. The medical issues the patient is following up for include All identified prob lems below. Note for Follow up for chronic medical issues: she has really been trying to exercise-= she tried the almond milk- didnt like but sugar better- going to [employer] in couple weeeks- her breath ing has been pretty good- got reclast in nov- did fine, [ADDITIONAL REASON] Follow up tests - Diagnostic tests include other (labs). Date: (09/01/16). , [ADDITIONAL REASON] Leg pain - The leg pain began gradually over time and has been occurring for years. The symptoms have been occurring in a recurrent pattern. The symptoms are described as a burning sensation, ache and shooting pain. There is involvement of the left lower extremity. Note for Leg pain: seems like sciatica.- not weak or numb from this- has had period for years but lasst month getti ng worse- has had xray hip twice- neg by [facility]- painwith walkingnot as bad sitting- hurts during night- can radiate into labia and cause tingling- no xray on back- takes aleve some help 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.21), BMI 30.0-30.9,adult, Former smoker, Low back pain potentially associated with radiculopathy, Chronic obstructive pulmonary disease, unspecified COPD type, Acquired hypothyroidism, Gastroesophageal reflux disease without esophagitis, Other hyperlipidemia, Osteoporosis (733.00), Hypertension, benign [facility] Office Visit On: 07-Jun-2016 9:02 Encounter Reason: Physical female exam - General health: feels well with no complaints, has good energy level and is sleeping well. The patient's appetite is normal. Nutrition: appropriate balanced diet. Exercises 3 (jus End: 24-Jun-2016 7:58 t joined [employer]) days per week. Sleeps on average 7 hours per night. Normal bowel and bladder habits. Safety measures include appropriate use of safety belts and home smoke detectors. There are no current emotional problems. Note for Physical exam: [facility] had ct of chest and looks better- her chest feeling ok- and vaginal issue better - no chest pain--bp is good and weight is stable- did have gerd couple times not routinelyEncounter Diagnosis: [facility], Former smoker, BMI 30.0-30.9,adult, Aortic valve disorder, Gastroesophageal reflux disease without esophagitis, Osteoporosis (733.00), Other hyperlipidemia, Impaired Fasting Glucose (790.21), Acquired hypothyroidism, Bilateral carotid artery stenosis, Actinic keratosis (Renamed from AK (actinic keratosis)), PVD (peripheral vascular disease) [facility] Historical Summary On: 10-May-2016 15:21 Encounter Diagnosis: Chronic obstructive pulmonary disease, unspecified COPD type End: 10-May-2016 15:23 [facility] Historical Summary On: 26-Apr-2016 15:53 Encounter Diagnosis: Unspecified Diagnosis End: 26-Apr-2016 16:01 [facility] Historical Summary On: 26-Feb-2016 14:55 Encounter Diagnosis: Vaginal discharge End: 26-Feb-2016 14:57 [facility] Office Visit On: 26-Feb-2016 9:47 Encounter Reason: Annual Medicare Exam - The patient had reviewed and updated the family history, medication/s, past medical history and social history. Yes the patient did have a mini mental status exam done today. The End: 26-Feb-2016 12:34 activities of daily living the patient needs help with are none. The patient has driven in past 6 months and put handrails in bathroom, but the patient has not had fecal incontinence, had urinary incont inence, missed or ran out of medications to soon, fallen in the past 6 months, gotten lost, has a medalert necklace or bracelet or put area rugs through house. The patient does have durable power of att orney and living will. The patient has noticed nothing from the geriatic depression scale. Other providers contributing to the patient's care are police magistrate (anthony) and other: (opthmologist Dr. Ludwig and Dr. Nicholas for Ortho)., [ADDITIONAL REASON] Follow up tests - Diagnostic tests include other (labs). Date: (02/18/16). , [ADDITIONAL REASON] Follow up for chronic medical issues - The patient feels well with minor complai nts (vaginal d/c again like in july- ), has good energy level and is sleeping well. Patient has been compliant with instructions. Current medication use: no side effects and compliant with dosing regimen. Patient sleeps 8 hours per night. Nutrition: balanced diet. The medical issues the patient is following up for include All identified problems below. Note for Follow up for chronic medical is sues: feeling pretty well except vaginal discharge- weight creeping up- not eating different- isnt as active she is feeling less energy - sleeping 8 hours- waking up rested- night ts gone had eye exam in november has macular and now on preservision and has helped- not exercising routienly and faustina cruz in mar for ct of chest and pfts - does have reeves- no gerd , [ADDITIONAL REASON] Vaginal Discharge - Symptoms include vaginal discharge, vaginal burning, vaginal redness, vaginal tenderness and vaginal odor, while symptoms do not include vaginal itching or vagin al lesions. The patient describes the vaginal discharge as yellow (creamy), brown and malodorous. Onset was sudden 1 week(s) ago. The symptoms occur constantly. The patient describes this as worsening. Associated symptoms include dysuria, urinary urgency, rash and pelvic pain (feels heavy, like when had periods ), while associated symptoms do not include urinary frequency or abdominal pain. Current tr eatment includes oral antifungals. Note for Vaginal discharge: not itchy- she not sure actually vaginal - could be urine Encounter Diagnosis: Nonsmoker, Vaginal discharge, BMI 30.0-30.9,adult, Impaired Fasting Glucose (790.21), Other hyperlipidemia , Gastroesophageal reflux disease without esophagitis, Other fatigue, Aortic valve disorder, Chronic obstructive pulmonary disease, unspecified COPD type, Macular degeneration, Encounter for screening mammogram for breast cancer (Renamed from Encounter for screening mammogram for malignant neoplasm of breast), Osteoporosis (733.00), Acquired hypothyroidism, Encounter for annual general medical examination with abnormal findings in adult [facility] Office Visit On: 05-Feb-2016 10:16 Encounter Reason: Injections - The medication the patient is here to receive is other (flu).Encounter Diagnosis: Need for prophylactic vaccination and inoculation against influenza (Renamed from Need for immunization against influenza) End: 05-Feb-2016 10:29 [facility] Phone Encounter On: 20-Jan-2016 11:41 Encounter Diagnosis: Yeast infection End: 20-Jan-2016 11:44 [facility] Office Visit On: 18-Dec-2015 11:04 Encounter Reason: Follow up, Laboratory Test Results - Date: (12/04/15). Note for Follow up to discuss laboratory test results: sweating is getting better -, End: 21-Dec-2015 21:14 [ADDITIONAL REASON] Follow up acute care visit - The patient feeling better since last seen and improving. Patient has been compliant with instructions. Current medication use: no side effects and comp liant with dosing regimen. Patient sleeps 8 hours per night. Nutrition: balanced diet. Note for Follow up acute care visit: Pt seen Dr. Nicholas this week. Xrayed her knee and everything looks great. K nee is resolved. No infection.- she feels like knee is better- she has a bad day cough dowell couple days a week but clears - less sob- and energy is improving and drinking boost Encounter Diagnosis: Incisional infection, subsequent encounter, Nonsmoker, BMI 29.0-29.9,adult, Night sweats, COPD with acute exacerbation (Renamed from Acute exacerbation of chronic obstructive airways disease), Abnormal blood chemistry, Acquired hypothyroidism, Other hyperlipidemia [facility] Office Visit On: 04-Dec-2015 9:51 Encounter Reason: Follow up tests - Date: (10/23/15)., [ADDITIONAL REASON] Follow up acute care visit - The patient feels the same and improving. Patient h End: 04-Dec-2015 14:43 as been compliant with instructions. Current medication use: no side effects and compliant with dosing regimen. Patient sleeps 8 hours per night. Nutrition: balanced diet. Note for Follow up acute care visit: no further hemoptysis and breathing improved not quite baseline and her energy improved as well Encounter Diagnosis: Other hyperlipidemia, Nonsmoker, Night sweats, Allergic rhinitis, Incisional infection, initial encounter, COPD with acute exacerbation (Renamed from Acute exacerbation of chronic obstructive airways disease) [facility] Office Visit On: 23-Oct-2015 9:36 Encounter Reason: Transition into care - The patient is transitioning into care from a hospital and a summary of care was reviewed ., [ADDITIONAL REASON] Follow up hospital - Reason for ER visit: note: (Left total knee replacement). T End: 23-Oct-2015 10:20 he patient feels well with minor complaints (left knee still swollen, pain). Patient has been compliant with instructions. Current medication use: no side effects. Patient sleeps 7 hours [address] Impa ct of disease: impact on recreation-moderate. Nutrition: balanced diet. Hospital procedures performed were other (Left total knee replacement). The hospital results of the chest X-ray (clear pulmonary i nfiltrate) were Note for Follow up hospital: got pneumonia in hospital- and copd exac- and saw anthony in hospital and in followup a week later- she is off oxygen now- - still some sob- at home runnin g 93-96- when she inside better than if outside or in humidiity- and not cough some wheeze- followup cxr clear-still not have stamina- is drinking boost- no fever - appetite ok taking stool softner and bowels moving - now off pain meds and urinating ok Encounter Diagnosis: History of total left knee replacement, BMI 29.0-29.9,adult, Nonsmoker, Other fatigue, COPD with acute exacerbation (Renamed from Acute exacerbation of chronic obstructive airways disease) [facility] Office Visit On: 02-Sep-2015 11:33 Encounter Reason: Follow up for chronic medical issues - The patient feels well with no complaints, has good energy level and is sleeping well. Patient has been compliant with instructions. Current medication use: no ricardo End: 03-Sep-2015 17:19 e effects and compliant with dosing regimen. Patient sleeps 8 hours per night. Nutrition: balanced diet. Note for Follow up for chronic medical issues: overall doing ok weight stable bp is good does ? ?feel like she allergies and takes zyrtec which helps- she not ready to do allergy testing or shots- the vaginal disc harge beetter- breathing ok- feels stable no chest pain and overall feels ready for surgery next month, [ADDITIONAL REASON] Follow up tests - Date: (08/30). Encounter Diagnosis: Chronic obstructive pulmonary disease, unspecified COPD type, Nonsmoker, Osteoporosis (733.00), Acquired hypothyroidism, Impaired Fasting Glucose (790.21), Hypertension, benign , Other hyperlipidemia, Gastroesophageal reflux disease without esophagitis, Bilateral carotid artery stenosis, Aortic valve disorder [facility] Office Visit On: 07-Aug-2015 12:23 Encounter Reason: Vaginal Discharge - Symptoms include vaginal discharge, vaginal burning, vaginal redness and vaginal odor, while symptoms do not include vaginal itching, vaginal lesions or vaginal tenderness. The patie End: 07-Aug-2015 13:48 nt describes the vaginal discharge as yellow (creamy) and malodorous. Onset was sudden 3 week(s) ago. The symptoms occur constantly. The patient describes this as worsening. Associated symptoms include pelvic pain (feels heavy, like when had periods ), while associated symptoms do not include dysuria, urinary frequency, urinary urgency, rash or abdominal pain. The patient is not currently being treate d for this problem. Note for Vaginal discharge: Tried the OTC monistat and that didnt help, seemed to make it worse.Have prolapsed bladder and rectum so difficult inserting Encounter Diagnosis: Vaginal discharge, Vaginal atrophy [facility] Office Visit On: 20-May-2015 11:25 Encounter Reason: Preoperative evaluation - The patient feels well with minor complaints. Surgical procedures include: other (left total knee replacement with dr nicholas). Date of procedure: (07/15/15, will not schedule u End: 21-May-2015 21:19 ntil df clears) . There have been no problems with general anesthesia or blood/blood products. Prosthetics include: dentures, eye glasses and other (hearing aids). Note for Preoperative evaluation: d oing well- had no issues with same surgery last year- no clot hx no anestheisa issues- no cp nosob and sugar and bp is goodEncounter Diagnosis: Pre-operative examination, Chronic obstructive pulmonary disease, unspecified COPD type, Bilateral carotid artery stenosis, Impaired Fasting Glucose (790.21), Hypertension, benign, Aortic valve disorder [facility] Office Visit On: 25-Feb-2015 10:22 Encounter Reason: Follow up tests - Diagnostic tests include bone scan (11/2014). Date: (02/17/15)., [ADDITIONAL REASON] Follow up for chronic medical issues - The patient feels well with minor complai End: 26-Feb-2015 22:00 nts, has good energy level (some days) and is sleeping well. Patient has been compliant with instructions. Current medication use: no side effects and compliant with dosing regimen. Patient sleeps 8 dennis rs per night. Nutrition: balanced diet. Note for Follow up for chronic medical issues: had to go off lipitor due to mushcle aching which is much begttter she taking cholestoff now- eating toomuch cheese Encounter Diagnosis: Hypertension, benign, Osteoporosis (733.00), Lung nodule, Hypothyroidism, Carotid stenosis, Encounter for screening mammogram for breast cancer (Renamed from Encounter for screening mammogram for malignant neoplasm of breast), Impaired Fasting Glucose (790.21), Hyperlipidemia, GERD (gastroesophageal reflux disease), Sleep disorder (780.50), Colon Polyp (211.3), COPD with acute exacerbation (Renamed from Acute exacerbation of chronic obstructive airways disease) [facility] Office Visit On: 21-Oct-2014 9:31 Encounter Reason: Follow up for chronic medical issues - The patient feels well with minor complaints (nose bleeds from the right nostril couple times a week), has good energy level and is sleeping well (with trazadone). End: 21-Oct-2014 10:38 Patient has been compliant with instructions. Current medication use: no side effects and compliant with dosing regimen. Patient sleeps 8 hours per night. Nutrition: balanced diet, supplemental vitamin s and low salt diet. The medical issues the patient is following up for include All identified problems below, COPD, gastric reflux, high blood pressure, high cholesterol, osteoporosis/osteopenia and ot her (arthritis). Note for Follow up for chronic medical issues: eye exam a week ago had dry macular - bp is good and sugar and chol bit better no tolerate meds - no gerd , [ADDITIONAL REASON] Follow up, Laboratory Test Results - Date: (10/13/14). , [ADDITIONAL REASON] Nose Bleeds - Duration of 2-3 weeks. Just in the right nostril and usually happens first thing in the morning and last thing in evening. No headaches prior. 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 No noticable lesion. 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.21), Osteoporosis (733.00), Hypothyroidism(244.9), Hyperlipidemia (272.4), Chronic Obstructive Pulmonary Disease (496.), Hypertension,benign(401.1), Gerd (530.81), Epistaxis [facility] Phone Encounter On: 19-Sep-2014 15:45 Encounter Diagnosis: Chronic Obstructive Pulmonary Disease (496.) End: 19-Sep-2014 15:47 [facility] Office Visit On: 15-Aug-2014 11:51 Encounter Reason: Transition into care - The patient is transitioning into care from a hospital and a summary of care was reviewed ., [ADDITIONAL REASON] Follow up hospital - Reason for ER visit: note: (right knee replacement). The pa End: 19-Aug-2014 22:51 melvin feels well with minor complaints (had infection in the incission and just finished up atb for it. Feels it has heeled well, maybe some slight heat to it when exercises. Thinks the rash on lower le g is back, the same she had last year.), has decreased energy level and is sleeping well. Patient has been compliant with instructions. Current medication use: no side effects and compliant with dosing regimen. Patient sleeps 7 hours per night. Note for Follow up hospital: feeling well and surgery went well- she hasnt done therapy yet- and appetite starting to come back- bp is good- she went to er- 12 hours after discharge with increasing redness around knee - was on keflex and that resolved- no fever- Encounter Diagnosis: Hypertension,benign(401.1), Chronic Obstructive Pulmonary Disease (496.), Cramps, extremity, Incisional infection, Eczema (692.9), Aortic valve disorders (424.1), Hyperlipidemia (272.4), Hypothyroidism(244.9) [facility] Phone Encounter On: 06-Aug-2014 17:17 [facility] End: 06-Aug-2014 17:21 Phone Encounter On: 23-Jun-2014 13:50 Encounter Diagnosis: Abnormal urine End: 23-Jun-2014 13:57 [facility] Office Visit On: 18-Jun-2014 14:10 Encounter Reason: Preoperative evaluation - The patient feels well with no complaints, has good energy level and is sleeping well. Surgical procedures include: other (right total knee arthroplasty with Dr. Nicholas). Date End: 19-Jun-2014 20:07 of procedure: (not scheduled yet till cleared) . There have been no problems with general anesthesia or blood/blood products. Prosthetics include: dentures and eye glasses. Note for Preoperative eval uation: apparently anthony got preop clearnace as well- she just saw him in apr - pfts she said havent worsend over last 6 months- and ct ok - no hx of blood clots and hasnt had replacement before -no chest paina nd breathing well- and carotids ok - sugar good and bp is good- and having spinal anesthesiaEncounter Diagnosis: Pre-Operative Examination, Unspecified (V72.84), Impaired Fasting Glucose (790.21), Carotid Stenosis (433.10), Hypertension,benign(401.1), Hyperlipidemia (272.4), Chronic Obstructive Pulmonary Disease (496.), Unspecified disorder of thyroid (246.9), Aortic valve disorders (424.1) [facility] Phone Encounter On: 19-May-2014 17:27 Encounter Diagnosis: Hyperlipidemia (272.4) End: 19-May-2014 17:32 [facility] Office Visit On: 31-Mar-2014 10:44 Encounter Reason: Follow up for chronic medical issues - The patient feels well with minor complaints (rash on both ankles- talk about pravastatin and advair discuss), has good energy level and is sleeping well (with tra End: 31-Mar-2014 21:39 zadone). Patient has been compliant with instructions. Current medication use: experiencing side effects (statin) and compliant with dosing regimen. Patient sleeps 8 hours per night. Nutrition: balanced diet, supplemental vitamins and low salt diet. The medical issues the patient is following up for include All identified problems below, COPD, gastric reflux, high blood pressure, high cholesterol, ost eoporosis/osteopenia and other (arthritis). Note for Follow up for chronic medical issues: rash on ankles for couple months- - she used cortisone 10 - whiched stopped the itchy scaley- its on both ank les- then she tried lamisil- for 2 weeks- didnt do anything-- bp good , [ADDITIONAL REASON] Follow up, Laboratory Test Results - Date: (03/21/14). , [ADDITIONAL REASON] Rash - Symptoms include rash. The patient describes the rash as red, burning and itchy. The rash is located on the left leg (lower) and on the right leg (lower ). Onset was gradual 2 month(s) ago. The rash is spreading. Encounter Diagnosis: Hypertension,benign(401.1), Gerd (530.81), Carotid Stenosis (433.10), Hyperlipidemia (272.4), screening , Chronic Obstructive Pulmonary Disease (496.), Impaired Fasting Glucose (790.21), Eczema (692.9), Need for vaccination against Streptococcus pneumoniae [facility] Office Visit On: 27-Nov-2013 10:25 Encounter Reason: Follow up for chronic medical issues - The patient feels well with minor complaints (bicep broke free of shoulder, was seen by Dr. Nicholas. They didn't do anything because they said I still had good ROM End: 27-Nov-2013 11:42 and strength. Feels fine now, just a little bulge. I also had a f/u CT scan with Dr. Cruz on my lung cancer and it is still cancer free. ), has good energy level and is sleeping well (with trazadone ). Patient has been compliant with instructions. Current medication use: no side effects and compliant with dosing regimen. Patient sleeps 8 hours per night. Nutrition: balanced diet, supplemental vitam ins and low salt diet. The medical issues the patient is following up for include All identified problems below, COPD, gastric reflux, high blood pressure, high cholesterol, osteoporosis/osteopenia and other (arthritis). Note for Follow up for chronic medical issues: feels pretty good and breathing in general good cc raspy cough day- no gerd, [ADDITIONAL REASON] Follow up tests - Date: (11/19/13 blood work). 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.21), Carotid Stenosis (433.10), Chronic Obstructive Pulmonary Disease (496.), Gerd (530.81), Hypertension,benign(401.1), Hyperlipidemia (272.4) [facility] Office Visit On: 20-Sep-2013 12:04 Encounter Diagnosis: arthritis,unspecified (716.90) End: 22-Sep-2013 21:45 [facility] Phone Encounter On: 05-Aug-2013 8:39 Encounter Diagnosis: Hyperlipidemia (272.4) End: 05-Aug-2013 8:42 [facility] Office Visit On: 24-Jul-2013 11:03 Encounter Reason: Follow up for chronic medical issues - The patient feels well with no complaints, has good energy level and is sleeping well. Patient has been compliant with instructions. Current medication use: no ricardo End: 24-Jul-2013 11:58 e effects and compliant with dosing regimen. Patient sleeps 6 hours per night. Nutrition: balanced diet, supplemental vitamins and low salt diet. The medical issues the patient is following up for inclu de All identified problems below, COPD, gastric reflux, high blood pressure, high cholesterol, osteoporosis/osteopenia and other (arthritis). blood pressure range : (130/67, 153/76, 125/63, 113/63, 115/ 64, 114/63). Note for Follow up for chronic medical issues: she is leaving on for [place] with family- she got new hearing aides and can hear and feeling alot better - bp in general is good , [ADDITIONAL REASON] Follow up, Laboratory Test Results - Date: (07/16/13). Encounter Diagnosis: Hyperlipidemia (272.4), Impaired Fasting Glucose (790.21), Colon Polyp (211.3), Lung nodule (518.89), Carotid Stenosis (433.10), Hypertension,benign(401.1), Gerd (530.81), Chronic Obstructive Pulmonary Disease (496.), Aortic valve disorders (424.1), Unspecified disorder of thyroid (246.9) [facility] Office Visit On: 18-Mar-2013 10:43 Encounter Reason: Follow up for chronic medical issues - The patient feels well with minor complaints (noticed some increased edema in lower legs over weekend but traveled a lot and thinks her family cooks with a lot of End: 18-Mar-2013 21:22 salt.), has good energy level and is sleeping well. Patient has been compliant with instructions. Current medication use: no side effects and compliant with dosing regimen. Patient sleeps 6 hours per ni ght. Nutrition: balanced diet, supplemental vitamins and low salt diet. The medical issues the patient is following up for include All identified problems below, COPD, gastric reflux, high blood pressur e, high cholesterol, osteoporosis/osteopenia and other (arthritis). blood pressure range : (130/67, 153/76, 125/63, 113/63, 115/64, 114/63). Note for Follow up for chronic medical issues: she is feeli ng well- has more lung test in apr - with pft and overnight pulseox- and ct of lung set up and sees Sibilia- bp is good and weight is stable- no gerd- no heart sx- legs swell when travel- better now- ba ck to normal- 3 hours - she feels like linzess helped some does help but didnt take daily, [ADDITIONAL REASON] Follow up, Laboratory Test Results - Date: (02/2013). , [ADDITIONAL REASON] Annual Medicare Exam - The patient had reviewed and updated the family history, medication/s, past medical history and social history. Yes the patient did have a mini mental status exam done today. The activities of daily living the patient needs help with are none. The patient has driven in past 6 months and put area rugs through house, but the patient has not had fecal incontine nce, had urinary incontinence, missed or ran out of medications to soon, fallen in the past 6 months, gotten lost, has a medalert necklace or bracelet or put handrails in bathroom. The patient does have durable power of commercial real estate attorney and living will. The patient has noticed nothing from the geriatic depression scale. Other providers contributing to the patient's care are gastrologist (quinn), police magistrate and other: (opthmologist). , [ADDITIONAL REASON] Well Women Exam - The patient feels well with no complaints, has good energy level and is sleeping well. Pap smear: date of last pap: (over 5 years since last pap). Contraceptive hi story: The patient is not using any method of contraception at this time. Patient does not exercise. The patient's libido is normal. The patient reports that she does not perform monthly breast self exa m. Calcium intake includes 1200 mg with Vit D daily supplement and 1 serving milk daily. The patient denies the use of oral contraceptives or hormone replacement therapy. Menstruation: Last menstrual pe riod date: (post-desiree). Note for Well Women Exam: ricardo had colonsoopy in jan- and good for year Encounter Diagnosis: Abdominal Pain,RUQ(789.01), Impaired Fasting Glucose (790.21), Gerd (530.81), Osteoporosis (733.00), Hypertension,benign(401.1), Lung nodule (518.89), Well Women Exam, No Pap (V72.31) (Mammo) (Renamed from Well Woman V72.31 (m,no p)), Annual Medicare Physical (V70.0), Carotid Stenosis (433.10), Hyperlipidemia (272.4), Unspecified disorder of thyroid (246.9), Aortic valve disorders (424.1) [facility] Office Visit On: 08-Jan-2013 10:19 Encounter Reason: Injections - The medication the patient is here to receive is other (influenza).Encounter Diagnosis: NEED FOR PROPHYLACTIC VACCINATION AND INOCULATION AGAINST INFLUENZA (V04.81) End: 08-Jan-2013 10:29 [facility] Office Visit On: 12-Nov-2012 9:41 Encounter Reason: Follow up for chronic medical issues - The patient feels well with no complaints, has good energy level and is sleeping well. Patient has been compliant with instructions. Current medication use: no ricardo End: 12-Nov-2012 10:16 e effects and compliant with dosing regimen. Patient sleeps 6 hours per night. Nutrition: balanced diet, supplemental vitamins and low salt diet. The medical issues the patient is following up for inclu de All identified problems below, COPD, gastric reflux, high blood pressure, high cholesterol, osteoporosis/osteopenia and other (arthritis). blood pressure range : (130/67, 153/76, 125/63, 113/63, 115/ 64, 114/63). Note for Follow up for chronic medical issues: doing well- saw anthony this month and had ct and nothing has changed and she is exercising more and getting less sob than was- her weight d own 5 pounds and trying ??and bp is great and no gerd- no infection sx had cortisone shot 2 weeks prior to lab- not taking any extra vit d other than what is in mvi-f eels well and in general sleeping well, [ADDITIONAL REASON] Follow up, Laboratory Test Results - Date: (11/05/12). 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.21), Osteoporosis (733.00), Gerd (530.81), Chronic Obstructive Pulmonary Disease (496.), Hyperlipidemia (272.4), Aortic valve disorders (424.1) [facility] Phone Encounter On: 24-Sep-2012 14:22 Encounter Diagnosis: Chronic Obstructive Pulmonary Disease (496.) End: 24-Sep-2012 14:29 [facility] Office Visit On: 06-Aug-2012 9:29 Encounter Reason: Follow up for chronic medical issues - The patient feels well with no complaints, has good energy level and is sleeping well. Patient has been compliant with instructions. Current medication use: no ricardo End: 06-Aug-2012 10:16 e effects and compliant with dosing regimen. Patient sleeps 6 hours per night. Nutrition: balanced diet, supplemental vitamins and low salt diet. The medical issues the patient is following up for inclu de All identified problems below, COPD, gastric reflux, high blood pressure, high cholesterol, osteoporosis/osteopenia and other (arthritis). blood pressure range : (130/67, 153/76, 125/63, 113/63, 115/ 64, 114/63). Note for Follow up for chronic medical issues: in january has another colonsocopy at [place]-- she will have area burned- had a tubulovillous adenoma with focal high grade dysplasia- last fall had issues with breahting and had bronchososcopy with biopsy- and couldnt get tube through bronchi so closed shut- had multiple biopsies no diagnosis- they were going to stent the bronchi- at [facility]- but they didnt have a stent- she was on augmentin and prednsione then and felt better - saw anthony again around [facility] as had congestion and sob - went back on augmentin and prednisone again- a nd feeling better again- they dont know if cancer back or not- but he is doing followup cancer ct -- has followup again in october- weight is stable and bp is good , [ADDITIONAL REASON] Follow up, Laboratory Test Results - Date: (07/30/12). 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.21), Osteoporosis (733.00), Gerd (530.81), Chronic Obstructive Pulmonary Disease (496.), Colon Polyp (211.3), Hyperlipidemia (272.4), Abdominal Pain,RUQ(789.01) [facility] Office Visit On: 07-May-2012 9:22 Encounter Reason: Follow up for chronic medical issues - The patient feels well with no complaints, has good energy level and is sleeping poorly (tosses and turns alot). Patient has been compliant with instructions. Curr End: 07-May-2012 10:27 ent medication use: no side effects and compliant with dosing regimen. Patient sleeps 6 hours per night. Nutrition: balanced diet, supplemental vitamins and low salt diet. The medical issues the patient is following up for include All identified problems below, COPD, gastric reflux, high blood pressure, high cholesterol, osteoporosis/osteopenia and other (arthritis). blood pressure range : (130/67, 15 3/76, 125/63, 113/63, 115/64, 114/63). Note for Follow up for chronic medical issues: she had another followup ct on monday- she had bronchosopy and bx no cancer ??they are monitoring her- she has fol lwoup with anthony fe first- and bp is good and weight is stable- - the inhalers help her lungs- doing much better with actiivty- no gerd - still taking trazadone and can sleep well - if doesnt benadry l and or tylenol helps -hasnt skipped any thyroid but was off simvistatin for 2 weeks so chol high , [ADDITIONAL REASON] Follow up, Laboratory Test Results - Date: (04/30/12). Encounter Diagnosis: Sleep disorder (780.50), Hypertension,benign(401.1), Chronic Obstructive Pulmonary Disease (496.), Gerd (530.81), Lesion-Unknown behavior (238.2), Unspecified disorder of thyroid (246.9), Hyperlipidemia (272.4), Otalgia, unspecified (388.70), Eustachian tube dysfunction (381.81), Unspecified vertiginous syndromes and labyrinthine disorders (386.9), Abdominal Pain,RUQ(789.01) [facility] Office Visit On: 08-Feb-2012 11:08 Encounter Reason: Ear Discharge - Symptoms include ear pain ().Encounter Diagnosis: Otalgia, unspecified (388.70), Eustachian tube dysfunction (381.81), Cerumen impaction (380.4) End: 08-Feb-2012 13:37 [facility] Office Visit On: 23-Jan-2012 9:29 Encounter Reason: Follow up for chronic medical issues - The patient feels well with minor complaints (chronic cough, dry- hx of copd, no signs of infection, drainage is clear to white-), has good energy level and is sle End: 23-Jan-2012 10:22 eping poorly (tosses and turns alot). Patient has been compliant with instructions. Current medication use: no side effects and compliant with dosing regimen. Patient sleeps 6 hours per night. Nutrition : balanced diet, supplemental vitamins and low salt diet. The medical issues the patient is following up for include All identified problems below, COPD, gastric reflux, high blood pressure, high choles terol, osteoporosis/osteopenia and other (arthritis). blood pressure range : (130/67, 153/76, 125/63, 113/63, 115/64, 114/63). Note for Follow up for chronic medical issues: got lung resection- and do ing well- she saw zuhair no chemo or radiation- she found out doesnt lacy with morphine- still losing weight but didnt have appetite for a while but coming back now but trying to control it - bp re asonable- her ct is due in mar - that is already ordered in [place]- then every 6 mos for 3 years and then yearly for 2 more years- has chronic dry cough feeling alot of draiange and allergies- all kaci ar no fever- tried claritin- and quit coughing but dried her up too much-sees anthony next month not sob, [ADDITIONAL REASON] Follow up, Laboratory Test Results - Date: (01/09/12). Encounter Diagnosis: Need for prophylactic vaccination and inoculation against influenza (V04.81), Hypertension,benign(401.1), Unspecified disorder of thyroid (246.9), Chronic Obstructive Pulmonary Disease (496.), arthritis,unspecified (716.90), screening, Hyperlipidemia (272.4) [facility] Office Visit On: 18-Oct-2011 14:00 Encounter Reason: Follow up tests - Diagnostic tests include other (pet scan). Date: (09/26/11). Follow up visit with no current symptoms. Note for Follow up tests: Pt had lung biopsy done last mon with Dr. Cruz and End: 20-Oct-2011 22:15 has apt at [facility] october [address] Cosmo Garvin, reading hospital surgeon.-she is not coughingor sob- got biopsy last week ??and told her had to come out anyway- she is having trouble shutting down despite the trazadone so she will try higher dose Encounter Diagnosis: Lung nodule (518.89), Sleep disorder (780.50), Hyperlipidemia (272.4), Hypertension,benign(401.1), Unspecified disorder of thyroid (246.9) [facility] Office Visit On: 16-Sep-2011 10:00 Encounter Reason: Follow up tests - Diagnostic tests include CT scan (chest- 09/09/11) and other (labs). Date: (09/07/11). Current symptoms include joint pains (right ??knee pain- ??has apt with Dr. Nicholas.).Encounter Diagnosis: Lung nodule (518.89), End: 18-Sep-2011 21:50 Hyperlipidemia (272.4), Hypertension,benign(401.1), Pneumonia due to other specified bacteria (482.89), Dizziness(780.4), Chest pain (786.59), Hypokalemia (276.8) [facility] Office Visit On: 22-Aug-2011 10:14 Encounter Reason: Follow up Meds - The patient feels well with no complaints, has good energy level and is sleeping well. Patient has been compliant with instructions. Current medication use: no side effects and complian End: 22-Aug-2011 10:40 t with dosing regimen. Patient sleeps 6 hours per night. Note for Follow up Meds: F/u on starting trazadone for sleep problems. States if she takes it on monday night she will sleep really good on mon night and get about 8 hrs. Tolerating well with no complaints.- she isnt fatigued like she was - feels like pneumonia improving not gone -s till some cough and sob no fever- occ coughs up sptum but clear, [ADDITIONAL REASON] Follow up tests - Diagnostic tests include chest X-ray and other (labs- tsh). Date: (08/15/11). Encounter Diagnosis: Abnormal Chest X-Ray (793.99), Bacterial pneumonia, unspecified (482.9), Hypertension,benign(401.1), Sleep disorder (780.50), Unspecified disorder of thyroid (246.9), Hyperlipidemia (272.4) [facility] Office Visit On: 18-Jul-2011 15:12 Encounter Reason: Follow up tests - Diagnostic tests include chest X-ray (07/13/11), MRI (07/13/11) and treadmill exercise stress test (07/15/11). Date: (07/11/11). Current symptoms include dyspnea (not as bad as before). No End: 25-Jul-2011 13:03 te for Follow up tests: she is in general feeling better less sob - is coughing sometimes productive cr sputum- no fever-no chest pain now - no more nystagmus- cant sleep doesnt feel like worrying but cant shut down headEncounter Diagnosis: Bacterial pneumonia, unspecified (482.9), NYSTAGMUS NOS (379.50), Hypertension,benign(401.1), SOB (786.05), Sleep disorder (780.50), Unspecified disorder of thyroid (246.9) [facility] Phone Encounter On: 15-Jul-2011 15:57 Encounter Diagnosis: Pneumonia due to other specified bacteria (482.89) End: 15-Jul-2011 16:01 [facility] Phone Encounter On: 12-Jul-2011 9:05 Encounter Diagnosis: Hypertension,benign(401.1) End: 12-Jul-2011 9:07 [facility] Office Visit On: 11-Jul-2011 9:35 Encounter Reason: Follow up, Laboratory Test Results - Date: (07.04.11)., [ADDITIONAL REASON] Chest Pain - Note for Chest Pain: chest pain sob started 3 weeks ago- came on End: 11-Jul-2011 10:52 all of sudden while sitting in chair- pressure in chest- with activity gets really sob and no chest pressure- no cough wheeze or feever no leg swelling - leg rash not gone - has seen jesus in past- trie d steroid creme no help- no recent travel and was laying in bed and felt like having nystagmus- and tried to get up and got nausea- and had vision issues during - no vision no double vision- lasted 5 mi n- didnt get bvertigo- no oconnell- bps running bit higher like today Encounter Diagnosis: Chest pain (786.59), SOB (786.05), NYSTAGMUS NOS (379.50), Lesion-Unknown behavior (238.2), Hypertension,benign(401.1), Hyperlipidemia (272.4) [facility] Lab Order On: 04-Jul-2011 10:47 Encounter Diagnosis: Osteoporosis (733.00), Hypertension,benign(401.1), Hyperlipidemia (272.4) End: 04-Jul-2011 10:48 [facility] Office Visit On: 26-May-2011 8:35 Encounter Diagnosis: Eczema (692.9) End: 26-May-2011 9:02 [facility] Office Visit On: 16-Mar-2011 14:16 Encounter Reason: Follow up tests - Diagnostic tests include ECHO and other (labs and bone dexa). Date: (02/23/11). Follow up visit with no current symptoms., End: 16-Mar-2011 14:55 [ADDITIONAL REASON] Follow up for chronic medical issues - The patient feels well with no complaints, has good energy level and is sleeping poorly (tosses and turns alot). Patient has been compliant wi th instructions. Current medication use: no side effects and compliant with dosing regimen. Patient sleeps 6 hours per night. Nutrition: balanced diet, supplemental vitamins and low salt diet. The medic al issues the patient is following up for include All identified problems below, COPD, gastric reflux, high blood pressure, high cholesterol, osteoporosis/osteopenia and other (arthritis). blood pressur e range : (130/67, 153/76, 125/63, 113/63, 115/64, 114/63) and weight : (166). Note for Follow up for chronic medical issues: Feeling alot better since had gallbladder out. No more vomiting or nausea. No abdominal pain or fever.- she already started back to exercise and feeling good- had ercp - and had to take out bile duct stone- - bowels ok- eating ok- bp looks good- no gerd- - she apparently was hypoxic after surgery and had to have o2 and aerosols and that made it better- this breathing is better than was not back to baseline yet- she is taking calcium vit d and exercising- she had gi side eff ects with meds- bisphosphonate- and is failing evista Encounter Diagnosis: Abnormal blood chemistry (790.6), Osteoporosis (733.00), Hypertension,benign(401.1), Chronic Obstructive Pulmonary Disease (496.), Gerd (530.81), Hyperlipidemia (272.4), Aortic valve disorders (424.1), Vomiting (787.03), Abdominal Pain,RUQ(789.01) [facility] Phone Encounter On: 01-Mar-2011 16:28 Encounter Diagnosis: Hypokalemia (276.8) End: 01-Mar-2011 16:30 [facility] Office Visit On: 28-Feb-2011 10:32 Encounter Reason: Vomiting - Symptoms include nausea, vomiting, abdominal bloating and abdominal pain, while symptoms do not include difficulty swallowing, painful swallowing, hematemesis, chest pain, pelvic pain or back End: 28-Feb-2011 11:15 pain. Emesis is characterized as undigested food. Onset was gradual 3 month(s) ago. The symptoms occur frequently. The patient describes this as moderate in severity (to severe) and worsening. Symptoms are exacerbated by eating. Symptoms are not relieved by antacids or proton pump inhibitors. Associated symptoms include fever, fatigue and weakness, while associated symptoms do not include chills, hea dache or diarrhea. The patient is not currently being treated for this problem. Note for Vomiting: Pt gets a fever a few hours before vomiting then it goes away the next day.- happens about once a mon then fine after- pain is epigastric and right upper quad- pain before vomit- this last time had chili the day before- usually the pain goes away after vomit but last time didnt this last time for a w hile- constant sharp pain radiates around to back- no pain now- had hep c and wants tested- is taking ppi and just had scope upper endo by [facility] few mos ago normalEncounter Diagnosis: arthritis,unspecified (716.90), Chronic Obstructive Pulmonary Disease (496.), Hypertension,benign(401.1), Osteoporosis (733.00), Hypokalemia (276.8), Abdominal Pain,RUQ(789.01), Vomiting (787.03) [facility] Office Visit On: 26-Jan-2011 10:40 Encounter Reason: Injections - The medication the patient is here to receive is other.Encounter Diagnosis: Need for prophylactic vaccination and inoculation against influenza (V04.81) End: 26-Jan-2011 10:50 [facility] Office Visit On: 26-Nov-2010 10:00 Encounter Reason: Follow up for chronic medical issues - The patient feels well with no complaints, has good energy level and is sleeping poorly (tosses and turns alot). Patient has been compliant with instructions. Curr End: 26-Nov-2010 10:56 ent medication use: no side effects and compliant with dosing regimen. Patient sleeps 6 hours per night. Nutrition: balanced diet, supplemental vitamins and low salt diet. The medical issues the patient is following up for include All identified problems below, COPD, gastric reflux, high blood pressure, high cholesterol, osteoporosis/osteopenia and other (arthritis). blood pressure range : (130/67, 15 3/76, 125/63, 113/63, 115/64, 114/63) and weight : (166). 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- and has a basal cell left earlo be- having mohs procedure done on- - she is feeling well otherwise- humidity does affect breathing -but doing ok- bp is good- weight up 4 pounds- hasnt been to [facility] because of above- no gerdEncounter Diagnosis: Chronic Obstructive Pulmonary Disease (496.), Gerd (530.81), Hypertension,benign(401.1), Osteoporosis (733.00), Elevated LFT (790.6), Hyperlipidemia (272.4), screening, Aortic valve disorders (424.1) [facility] Office Visit On: 18-Aug-2010 10:31 Encounter Reason: Follow up for chronic medical issues - The patient feels well with no complaints, has good energy level and is sleeping poorly (tosses and turns alot). Patient has been compliant with instructions. Curr End: 18-Aug-2010 11:31 ent medication use: no side effects and compliant with dosing regimen. Patient sleeps 6 hours per night. Nutrition: balanced diet, supplemental vitamins and low salt diet. The medical issues the patient is following up for include All identified problems below, COPD, gastric reflux, high blood pressure, high cholesterol, osteoporosis/osteopenia and other (arthritis). blood pressure range : (130/67, 15 3/76, 125/63, 113/63, 115/64, 114/63) and weight : (166). Note for Follow up for chronic medical issues: bp is good her monitor off compared to ours - she hasnt been exercising like she was she has lo st 30 pounds- and trying- no gerd if takes meds daily- she has started taking hortensia- using tylenol arthritis at night- not much etoh , [ADDITIONAL REASON] Follow up, Laboratory Test Results - Date: (08/16/10). Encounter Diagnosis: Gerd (530.81), Unspecified disorder of thyroid (246.9), Hyperlipidemia (272.4), Hypertension,benign(401.1), Elevated LFT (790.6) [facility] Office Visit On: 22-Feb-2010 9:27 Encounter Reason: Follow up for chronic medical issues - The patient feels well with no complaints, has good energy level and is sleeping well. Patient has been compliant with instructions. Current medication use: no ricardo End: 22-Feb-2010 10:02 e effects and compliant with dosing regimen. Patient sleeps 7 hours per night. Nutrition: balanced diet, supplemental vitamins and low salt diet. The medical issues the patient is following up for inclu de All identified problems below, COPD, gastric reflux, high blood pressure, high cholesterol, osteoporosis/osteopenia and other (arthritis). blood pressure range : and weight : (169). Note for Follow up for chronic medical issues: she has been working hard on diet and exercise and weight down 30 pounds inlast 18mos- she is feeling well- is checking bps at home and not getting diastolic in 80s at ho me is lower - having gerd still 1 time every 1-2 weeks if doesnt take meds- - no dysphagia- her breathing has been amazing -she says feels like she is doing much better- her knees feel better with weigh t loss as well- swelling better in legs unless eats alot of salt- and dizzy better - onlyif stansds too quick, [ADDITIONAL REASON] Follow up, Laboratory Test Results - Date: (02/27/10). Encounter Diagnosis: Hypertension,benign(401.1), Chronic Obstructive Pulmonary Disease (496.), arthritis,unspecified (716.90), Osteoporosis (733.00), Gerd (530.81), Edema (782.3), systolic murmur, Dizziness(780.4), Unspecified disorder of thyroid (246.9), Unspecified visual disturbance (368.9), Hyperlipidemia (272.4), screen [facility] Office Visit On: 25-Jan-2010 12:01 Encounter Reason: Injections - The medication the patient is here to receive is other (flu).Encounter Diagnosis: Need for prophylactic vaccination and inoculation against influenza (V04.81) End: 25-Jan-2010 12:09 [facility] Office Visit On: 21-Aug-2009 11:17 Encounter Reason: Follow up for chronic medical issues - The patient feels well with minor complaints (still issues with shingles around right eye and on scalp- more issue with itching verses pain) ,has good energy level End: 21-Aug-2009 12:24 and is sleeping well. Patient has been compliant with instructions. Current medication use: no side effects and compliant with dosing regimen. Patient sleeps 7 hours per night. Nutrition: balanced diet ,supplemental vitamins and low salt diet. The medical issues the patient is following up for include All identified problems below ,COPD ,gastric reflux ,high blood pressure ,high cholesterol ,osteopor osis/osteopenia and other (arthritis). blood pressure range : (140's/70's) and weight : (169). Note for Follow up for chronic medical issues: had zoster - nopain but has some itching- - bp is good- -h er breathing is better than it used to be- she is doing her exercise class- she is going to join [employer] [facility]- she is getting massage every 3 weeks and is helping her arthritiis and her back, [ADDITIONAL REASON] Follow up, Laboratory Test Results - Date: (08/19/09). Encounter Diagnosis: Hyperlipidemia (272.4), Hypertension,benign(401.1), Chronic Obstructive Pulmonary Disease (496.), Unspecified disorder of thyroid (246.9), Gerd (530.81) , Aortic valve disorders (424.1) [facility] Historical Summary On: 19-Jun-2009 16:07 [facility] End: 19-Jun-2009 16:08 Office Visit On: 03-Jun-2009 10:32 Encounter Reason: Follow up ER - Reason for hospitalization note: (shingles/swollen right eye and redness). Patient has been compliant with instructions. Current medication use: no side effects and compliant with dosing End: 03-Jun-2009 11:19 regimen. The patient feels well with minor complaints (still some pain with the shingles- trouble seeing out of right eye d/t swelling) ,has good energy level and is sleeping well. Patient sleeps 8 (wit h 50mg of benedryl) hours per night. Note for Follow up ER: Visual accuity:left:20/50right:20/70both:20/50-- not having much pain now- no vision change - eye doesnt bother her is red- - on acyclovir for a week-Encounter Diagnosis: Herpes zoster with unspecified complications (053.8), Hypertension,benign(401.1) [facility] Office Visit On: 27-Feb-2009 10:50 Encounter Reason: Follow up for chronic medical issues - The patient feels well with no complaints ,has good energy level and is sleeping well. Patient has been compliant with instructions. Current medication use: no ricardo End: 02-Mar-2009 7:09 e effects and compliant with dosing regimen. Patient sleeps 6 hours per night. Nutrition: balanced diet ,supplemental vitamins and low salt diet. The medical issues the patient is following up for inclu de All identified problems below ,COPD ,gastric reflux ,high blood pressure ,high cholesterol ,osteoporosis/osteopenia and other (arthritis). blood pressure range : (120's/50's) and weight :. Note for Follow up for chronic medical issues: dizziness is in general better- only rare with position change- weight down 13 pounds and is trying and her back is unchanged- complains of left leg being larger t hudson right for severalmos- no trauma- could be the arthtritis in her knee- no pain in calf, [ADDITIONAL REASON] Follow up, Laboratory Test Results - Date: (02/20/09). Encounter Diagnosis: Chronic Obstructive Pulmonary Disease (496.), arthritis,unspecified (716.90), Osteoporosis (733.00), Unspecified disorder of thyroid (246.9), Low back pain (724.2), Edema (782.3), Hypertension,benign(401.1), Hyperlipidemia (272.4), clauidcation with left femoral bruit, Abnormal mammogram (793.80) [facility] Office Visit On: 23-Jan-2009 9:51 Encounter Diagnosis: Unspecified Diagnosis End: 23-Jan-2009 10:24 [facility] Office Visit On: 12-Dec-2008 9:35 Encounter Reason: Follow up for chronic medical issues - The patient feels well with minor complaints (continued back pain- wants to do x-rays now) ,has good energy level and is sleeping well. Patient has been compliant End: 14-Dec-2008 13:54 with instructions. Current medication use: no side effects and compliant with dosing regimen. Patient sleeps 8 hours per night. Nutrition: balanced diet ,supplemental vitamins and low salt diet. The med ica issues the patient is following up for include All identified problems below ,COPD ,gastric reflux ,high blood pressure ,high cholesterol ,hypothyroid ,osteoporosis/osteopenia and other (back pain) . Note for Follow up for chronic medical issues: she is down 10 pounds and trying with diet and exercise- her bp is good- no gerd- -- still problems with back she is ready to do more- bought [employer] to [place] want tohave it checked- having more trouble emptying her bladder- no weakness or numbness in legs- Encounter Diagnosis: Hypertension,benign(401.1), Unspecified disorder of thyroid (246.9), Chronic Obstructive Pulmonary Disease (496.), Dizziness(780.4), possible basal cell and irregular pigmented mole left shoulder , Abnormal mammogram (793.80), Low back pain (724.2), Hyperlipidemia (272.4), renal bruit [facility] Office Visit On: 11-Sep-2008 11:46 Encounter Reason: Follow up, Diagnostic Procedure Results - Diagnostic tests include treadmill exercise stress test (08/22/08) ,ultrasound (renal duplex us- 08/19/08- in scanned documents) ,other (carotid doppler- 08/21/08- in End: 11-Sep-2008 20:05 scanned documentsbone density- 08/20/08) and ECHO (08/19/08- in scanned documents). Note for Follow up, Diagnostic Procedure Results: she saw Jesus and will call for biopsy resutls- she feels fine- -- he r bp is better and weight down 5 pounds and she is trying- she was bad reflux on actonel so went off - is taking calcium and vit d-- and doing well , [ADDITIONAL REASON] Follow up, Laboratory Test Results - Date: (08/15/08 and 08/22/08). Encounter Diagnosis: Abnormal mammogram (793.80), Aortic valve disorders (424.1), Mitral regurgitation (424.0), clauidcation with left femoral bruit, Hypertension,benign(401.1), Gerd (530.81), Osteoporosis (733.00) [facility] Office Visit On: 11-Aug-2008 11:47 Encounter Reason: new patient female physical - Last seen between 6-12 months ago. General health: feels well with no complaints ,has good energy level and is sleeping well. The patient's appetite is normal. Nutrition: n End: 11-Aug-2008 22:54 ormal/adequate. Exercises 2 (joint wellness- senoirs @ [facility] ) days per week. Sleeps on average 5 ( I spend a lot of time in bed ) hours per night. Elimination problems include constipation (corectol hel ps ). Safety measures include appropriate use of safety belts and home smoke detectors. There are no current emotional problems. screening, colonoscopy (6 years ago ) ,screening, mammography (1 year ago ) and screening, visual acuity (due in November - Dr Ludwig ). Note for new patient female physical: diagnosed with copd 2 years ago-- saw Anthony in apr and all stable had pfts in apr-- - she was also t old heart murmur - she started on lisinopril for bp and was making her cough- so stopped and put her on cozaar- her bp still way to high on this--also noted with no activity pulse was 90 and so son the doctor put her on diltiazem - and she was sob with high heart rate- but better now- bp still running 148- had echo at least a couple years agoEncounter Diagnosis: Hypertension,benign(401.1), Gerd (530.81), Osteoporosis (733.00), Unspecified disorder of thyroid (246.9), Hyperlipidemia (272.4), Actinic keratosis (702.0), renal bruit, SOB (786.05), Dizziness(780.4), systolic murmur, clauidcation with left femoral bruit, possible basal cell and irregular pigmented mole left shoulder , irritated skin tags [facility] Historical Summary On: 05-Aug-2008 13:45 [facility] End: 05-Aug-2008 13:47 Historical Summary On: 31-Jul-2008 13:05 [facility] End: 31-Jul-2008 13:11 Payers MedicareHumana/Supplement Viola BANUELOS; ginette guarantor
--- OUTSIDE RECORDS SUMMARY | 2018-04-25 02:14 | XMS RPT_ITS | Continuity of Care Document ---
:1935 Author Organization [facility] Address [address] [facility] [address] [place] [address] Phone Care Team Providers Name Role Phone Meli Gómez DO Unavailable Jamie Cruz Unavailable Dr. Cesario Tavares Unavailable Ben Uriarte Unavailable JesusIsabel Glasgow Unavailable Francoise Regalado Unavailable Unavailable Alisson Espinal Unavailable Unavailable BOBBY Perez Unavailable Unavailable Unavailable [...] Active BMI 30.0-30.9,adult (Z68.30, V85.30) Status: Active Chronic obstructive pulmonary disease, unspecified COPD type (J44.9, 496) Comments: chronic stable-continue present regimen Status: Active Colon Polyp (K63.5, 211.3) Status: Active COPD with acute exacerbation (Renamed from Acute exacerbation of chronic obstructive airways disease) (J44.1, 491.21) Status: Active COPD with acute exacerbation (Renamed from Acute exacerbation of chronic obstructive airways disease) (J44.1, 491.21) Comments: improving Status: Active Cramps, extremity (R25.2, 729.82) Status: Active Deliveries (Parity) Comments: 5 Status: [...] will see ent- aspirin qod Status: Active Fatigue (R53.83, 780.79) Comments: we talked about her considering using the o2 that anthony said she need- certainly can play a role in her energy and has penitentiary heart and lung negative consequences Status: Active [...] Status: Active irritated skin tags Status: Active Low back pain (M54.5, 724.2) [...] Active Mitral regurgitation (I34.0, 424.0) Status: Active Need for prophylactic vaccination and [...] (379.50) Comments: hasnt had more Status: Active Osteoporosis (M81.0, 733.00) Status: Active Other fatigue (R53.83, 780.79) Comments: she sleeping ok she wake up rested but not been [id number] so she going to try to get [...] do nadeem Status: Active screening Status: Active Sleep disorder (G47.9, 780.50) Status: [...] 0 days Refills: 0 Ordered:02-Mar-2009 Amanda Espinal Bremelody Ellipta 200-25 MCG/INH Inhalation Aerosol Powder Breath Activated 1 (one) Aero Pow Br Act Aero Pow Br Act daily for 90 days Quantity: 3 {Inhaler} Refills: 3 Ordered:26-Apr-2017 Fast DO, Meli AFast DO, Meli A Start : 26-Apr-2017 Active CeleBREX 200 MG Oral Capsule 1 (one) Capsule daily for 90 days Quantity: 90 {Capsule} Refills: 3 Ordered:26-Apr-2017 Wagnera Wagner Ball DOa A Start : 26-Apr-2017 Active CENTRUM SILVER (Oral Tablet) for 0 days Refills: 0 Ordered:02-Mar-2009 Amanda Espinal Cozaar 50 MG Oral Tablet 1 (one) Tablet q am and 1/2 tab in evening for 90 days Quantity: 180 {Tablet} Refills: 3 Ordered:26-Apr-2017 Meli DO, Debra A Start : 26-Apr-2017 Active Comments:this is the correct dose DilTIAZem HCl ER Coated Beads 360 MG Oral Tablet Extended Release 24 Hour 1 (one) Tablet Tablet qd for 0 days Quantity: 90 {Tablet} Refills: 3 Ordered:26-Apr-2017 Meli DO, Debra A Start : 26-Apr-2017 Active HydroCHLOROthiazide 25 MG Oral Tablet 1 Tablet QD for 90 days Quantity: 90 {Tablet} Refills: 3 Ordered:26-Apr-2017Meli DO, Debra A Start : 26-Apr-2017 Active Incruse Ellipta 62.5 MCG/INH Inhalation Aerosol Powder Breath Activated 1 (one) Aero Pow Br Act daily for 90 days Quantity: 3 {Inhaler} Refills: 3 Ordered:26-Apr-2017 Wagnerkwabena TREJOradha LOMELI Meli A Start : 26-Apr-2017 Active Levothyroxine Sodium 112 MCG Oral Tablet 1 (one) Tablet daily for 90 days Quantity: 102 {Tablet} Refills: 3 Ordered:26-Apr-2017 Meli MAYAMeli garcia DO A Start : 26-Apr-2017 Active Comments:2 on monday Omeprazole 20 MG Oral Capsule Delayed Release [address] QD for 90 days Quantity: 90 {Capsule} Refills: 3 Ordered:26-Apr-2017Meli DO, Debra A Start : 26-Apr-2017 Active Potassium Chloride Eulalia ER 20 MEQ Oral Tablet Extended Release 2 (two) Tablet ER bid for 90 days Quantity: 360 {Tablet} Refills: 3 Ordered:26-Apr-2017Meli MAYAMeli garcia DO A Start : 26-Apr-2017 Active PreserVision AREDS 2 Oral Capsule 1 cap bid Active ProAir HFA 108 (90 Base) MCG/ACT Inhalation Aerosol Solution 2 (two) Aerosol Soln qid, prn for 90 days Quantity: 3 {Box} Refills: 3 Ordered:26-Apr-2017 Meli TREJOradha Meli A Start : 26-Apr-2017 Active Rosuvastatin Calcium 5 MG Oral Tablet 1 (one) Tablet qd in evening for 90 days Quantity: 90 {Tablet} Refills: 3 Ordered:05-Dec-2017 Meli TREJOradha LOMELI Meli A Start : 05-Dec-2017 Active Rosuvastatin Calcium 5 MG Oral Tablet 1 (one) Tablet qd in evening for 0 days Quantity: 30 {Tablet} Refills: 3 Ordered:05-Dec-2017 Mlei TREJOradha LOMELI Meli A Start : 05-Dec-2017 Active TraZODone HCl 50 MG Oral Tablet 1 1/2 -2 Tablet q hs for 90 days Quantity: 180 {Tablet} Refills: 3 Ordered:26-Apr-2017 Wagnerkwabena TREJOradha LOMELI Meli A Start : 26-Apr-2017 Active CLARITIN-D 24 HOUR, 10-240MG (Oral Tablet Extended Release 24 Hour) 1 Tablet ER 24HR daily for 4 days Refills: 0 Ordered:25-Apr-2012 Lilian Jones CNP Start : 08-Feb-2012 End : 12-Feb-2012 Inactive CORRECTOL, 5MG (Oral Tablet Delayed Release) for 0 days Refills: 0 Ordered:16-Sep-2011 Alisson Espinal End : 16-Sep-2011 Inactive Diflucan 150 MG Oral Tablet 1 (one) Tablet daily for 7 days Quantity: 7 {Tablet} Refills: 0 Ordered:04-Feb-2016 Rico LOMELI Meli TREJOradha LOMELI Meli A Start : 04-Feb-2016 End : 11-Feb-2016 Inactive Eliquis 2.5 MG Oral Tablet 1 (one) Tablet daily for 30 days Quantity: 30 {Tablet} Refills: 0 Ordered:04-Dec-2015 Rico LOMELI Meli MAYAradha DO, Meli A Start : 23-Oct-2015 End : 22-Nov-2015 [...] days Quantity: 1 {Tube} Refills: 0 Ordered:03-Apr-2017 Lilian Jones CNP Start : 03-Apr-2017 End : 24-Apr-2017 Inactive [...] days Quantity: 90 {Capsule} Refills: 3 Ordered:22-Mar-2017 Fast DO, Meli AFast DO, Meli A Start : 22-Mar-2017 End : 22-Mar-2017 Discontinued Dulera 100-5 MCG/ACT Inhalation Aerosol 2 (two) Aerosol Aerosol bid for 90 days Quantity: 3 {Inhaler} Refills: 3 Ordered:19-Apr-2016 Alisson Espinal Start : 27-Oct-2015 End : 19-Apr-2016 Discontinued EVISTA, 60MG (Oral Tablet) 1 Tablet QD for 0 days Quantity: 90 {Tablet} Refills: 3 Ordered:16-Mar-2011 Fast DO, Meli AFast DO, Meli A Start : 16-Mar-2011 End : 16-Mar-2011 Discontinued FLONASE, 50MCG/ACT (Nasal Suspension) 2 (two) Puff(s) daily for 0 days Quantity: 1 {Suspension} Refills: 0 Ordered:12-Nov-2012 Fast DO, Meli AFast DO, Meli A Start : 12-Nov-2012 End [...] KEFLEX, 500MG (Oral Capsule) 1 cap qid [id number] (500 MG) End : 21-Oct-2014 Discontinued LevoFLOXacin [...] End : 25-Nov-2014 Discontinued Dispense as Written LIPITOR, 10MG (Oral Tablet) 1 (one) Tablet Tablet daily for 30 days Quantity: 30 {Tablet} Refills: 0 Ordered:25-Nov-2014 Alisson Espinal Start : 24-Nov-2014 End : 25-Nov-2014 Discontinued Dispense as Written Comments:dimitrios MetroNIDAZOLE 500 MG Oral Tablet 4 Tablet once for 0 days Quantity: 4 {Tablet} Refills: 0 Ordered:07-Sep-2016 Alisson Espinal Start : 02-Sep-2015 End : 07-Sep-2016 Discontinued PRAVASTATIN SODIUM, 10MG (Oral Tablet) 1 (one) Tablet Tablet daily for 90 days Quantity: 90 {Tablet} Refills: 3 Ordered:25-Nov-2014 Alisson Espinal Start : 16-May-2014 End : 25-Nov-2014 Discontinued PredniSONE 10 MG Oral Tablet 3 pills for Tablet Tablet 3 days 2 pills for 3 days 1 pill for 3 days with food in am for 0 days Quantity: 18 {Tablet} Refills: 0 Ordered:07-Sep-2016 Alisson Espinal Start : 23-Oct-2015 End : 07-Sep-2016 Discontinued Rosuvastatin Calcium 10 MG Oral Tablet [...] Total Knee Replacement - Left Completed Comments: 2015 total knee replacement on right 2014- Completed Gesler Tubal Ligation Completed Comments: 42 yrs. Date Value Details 16-Nov-2017 Carotid Duplex Ultrasound Result: Comments: See Note; NOTES: [facility] Cardiovascular Services [address] [place] [address] Carotid Duplex Ultrasound 11/16/17 1405 MR#: [id number] Acct: [id number] Name: AYAD AGUERO Rep #: [id number] : 1935 82 From: Rashawn Andujar MD Attending Dr: Meli Gómez DO Status: REG CLI Ordering Dr: Meli Gómez DO Date: 11/16/17 Location: MRI Sex: F C Admitted: [facility] For Study: CAROTID STENOSIS Rt. Velocities/BP Lt. [...] left vertebral artery. Procedure C arotid Duplex 83176. Exam performed in department. Interpretation Summary Mild (<50%) stenosis right extracranial internal carotid. Mild (<50%) stenosis left extracranial internal carot id. Flow within the vertebral arteries is antegrade bilaterally. Ordering Physician: Meli Gómez Referring Physician: Meli Gómez Performed By: Judi Portillo, FLORECITA, RVT 11/16/171810 Date Rashawn Andujar MD CC: Meli Gómez DO Date Dictated: 11/16/17 1405 Date Transcribed: 11/16/171810 Nanosystems Engineer: Signed 16-Nov-2017 Lower Ext No Joint W/WO Cont Result: Comments: See Note; NOTES: [facility] Imaging Services [address] [place] [address] Lower Ext No Joint W/WO Cont MR#: [id number] Acct: [id number] Name: AYAD BANUELOS Rep #: [id number] : 1935 F 82 From: Winter Pérez MD PCP: Meli Gómez DO Status: REG CLI Study: Lower Ext No Joint W/WO Cont Date of Exam: 11/16/17 Exam# [id number] Ordering Dr: Meli Gómez DO STUDY: MRI [...] Service support , CC: Meli Gómez DO Nanosystems Engineer: Signed 05-Oct-2017 Downtime Report Result: Comments: See Note; NOTES: [facility] Medical Records Department [address] [place] [address] Downtime Report MR#: [id number] Acct: [id number] Name: AYAD BANUELOS Rep #: [id number] : 1935 82 From: Lit Escobar PCP: Meli Gómez DO Status: REG RCR This patient was seen during an EMR downtime September 18, 2017 - September 25, 2017. This patient may have a combination of pap er and electronic documentation or all paper documentation. All documentation is viewable within the e-chart portion of [employer] for each patient visit. 19-Jun-2017 SCREENING MAMM (CAD), BILAT Result: Comments: See Note; NOTES: [facility] Imaging Services [address] [place] [address] SCREENING MAMM (CAD), BILAT MR#: [id number] Acct: [id number] Name: AYAD BANUELOS Rep #: [id number] : 1935 F 81 From: Blaine Victor MD PCP: Meli Gómez DO Status: REG CLI Study: SCREENING MAMM (CAD), BILAT Date of Exam: 06/19/17 Exam# [id number] Ordering Dr: Meli Gómez DO [facility] MOGRAPHY - BILATERAL SCREENING REASON FOR EXAM: [...] delay biopsy of a clinically suspicious abnormality. [id number] Electronically Signed: Blaine Victor MD at 13:11 EST Tel [phone], Serv ice support , CC: Meli Gómez DO Nanosystems Engineer: Signed 03-Apr-2017 Chest without Contrast Result: Comments: See Note; NOTES: [facility] Imaging Services [address] [place] [address] Chest without Contrast MR#: [id number] Acct: [id number] Name: AYAD BANUELOS Rep #: [id number] : 1935 F 81 From: Blaine Victor MD PCP: Meli Gómez DO Status: REG CLI Study: Chest without Contrast Date of Exam: 04/03/17 Exam# [id number] Ordering Dr: Jamie Cruz MD STUDY: CT [...] Blaine Victor MD at 10:03 EST Tel [phone], Service support , CC: Meli Gómez DO; Jamie Cruz MD Nanosystems Engineer: Signed 03-Jan-2017 Echocardiogram Complete Result: Comments: See Note; NOTES: [facility] Cardiovascular Services [address] [place] [address] Echo Complete 01/03/17 1059 MR#: [id number] Acct: [id number] Name: AYAD BANUELOS Rep #: [id number] : 1935 81 From: Luther Quintero MD Attending Dr: Meli Gómez DO Status: REG CLI Ordering Dr: Meli Gómez DO Date: 01/03/17 Location: Sex: F C Admitted: Reason For Study: [...] Performed By: Laina Pendleton, FLORECITA, RVT 01/03/17 5352 Date Luther Quintero MD CC: Meli Gómez DO Date Dictated: 01/03 1059 Date Transcribed: 01/03/17 1503 Nanosystems Engineer: Signed 03-Jan-2017 Dexa Bone Density Study (HP) Result: Comments: See Note; NOTES: [facility] Imaging Services [address] [place] [address] Dexa Bone Density Study (HP) MR#: [id number] Acct: [id number] Name: AYAD BANUELOS Rep #: [id number] : 1935 F 81 From: Blaine Victor MD PCP: Meli Gómez DO Status: REG CLI Study: Dexa Bone Density Study (HP) Date of Exam: 01/03/17 Exam# [id number] Ordering Dr: Meli Gómez TUDY: DUAL ENERGY [...] Blaine Victor MD at 14:06 EDT Tel [phone], Service support , CC: Meli Gómez DO Nanosystems Engineer: Signed 07-Sep-2016 Lumbar Spine 2 or 3 Views Result: Comments: See Note; NOTES: [facility] Imaging Services [address] [place] [address] Verdana 4d Lumbar Spine 2 or 3 Views MR#: [id number] Acct: [id number] Name: AYAD BANUELOS Rep #: [id number] : 1935 F 81 From: Reilly Donovan DO PCP: Meli Gómez DO Status: REG CLI Study: Lumbar Spine 2 or 3 Views Date of Exam: 09/07/16 Exam# [id number] Ordering Dr: Meli Gómez DO GIOVANY DY: [...] Service support , CC: Meli Gómez DO Nanosystems Engineer: Signed 13-Jun-2016 Carotid Duplex Ultrasound Result: Comments: See Note; NOTES: [facility] Cardiovascular Services [address] [place] [address] Carotid Duplex Ultrasound 06/10/16 0855 MR#: [id number] Acct: [id number] Name: AYAD AGUERO Rep #: [id number] : 1935 80 From: Rashawn Andujar MD Attending Dr: Meli Gómez DO Status: REG CLI Ordering Dr: Meli Gómez DO Date: 06/10/16 Location: [facility] Sex: F C Admitted: Reaso n For [...] the left vertebral artery. Procedure Carotid Duplex 76769. Exam performed in department. Interpretation Summary Mild (& amp;#60;50%) stenosis left extracranial internal carotid. Mild (<50%) stenosis right extracranial internal carotid. Flow within the vertebral arteries is antegrade bilaterally. Ordering Physician: Meli Gómez Performed By: Ada Pérez RVT 06/13/162219 Date Rashawn Andujar MD CC: Meli Gómez DO Date Dictated: 06/10/16854 Date Transcribed: 06/13/162219 Nanosystems Engineer: Signed 22-Apr-2016 SCREENING MAMM (CAD), BILAT Result: Comments: See Note; NOTES: [facility] Imaging Services [address] [place] [address] Verda 4d SCREENING MAMM (CAD), BILAT MR#: [id number] Acct: [id number] Name: PUNEET BANUELOS Rep #: [id number] : 1935 F 80 From: Nikita Rogers DO PCP: Meli Gómez DO Status: REG CLI Study: SCREENING MAMM (CAD), BILAT Date of Exam: 04/22/16 Exam# [id number] Ordering Dr: Meli Gómez DO MAMMOGRAPHY - [...] delay biopsy of a clinically suspicious abnormality. [id number] Electronically Signed: Nikita Rogers DO at 14:[address] Tel [phone], Service support [phone], CC: Meli Gómez DO Nanosystems Engineer: Signed 01-Apr-2016 Chest without Contrast Result: Comments: See Note; NOTES: [facility] Imaging Services [address] [place] [address] Verdana 4d Chest without Contrast MR#: [id number] Acct: [id number] Name: AYAD BANUELOS ep #: [id number] : 1935 F 80 From: Blaine Victor MD PCP: Meli Gómez DO Status: REG CLI Study: Chest without Contrast Date of Exam: 04/01/16 Exam# [id number] Ordering Dr: Jamie Cruz STUDY: CT CHEST [...] the visualized upper abdomen. ORD ER #: [id number] CT/Chest without Contrast IMPRESSION: Status post right lower lobectomy with elevation of the right hemidiaphragm. 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 The previously see n infiltration in the right upper lobe has resolved. Electronically Signed: Blaine Victor MD at 14:02 EST Tel [phone], Service support [phone], CC: Stacey Gómez DO; Jamie Cruz MD Nanosystems Engineer: Signed 04-Dec-2015 Chest PA and Lateral Result: Comments: See Note; NOTES: [facility] Imaging Services [address] [place] [address] Verdana 4d Chest PA and Lateral MR#: [id number] Acct: [id number] Name: AYAD BANUELOS Re p #: [id number] : 1935 F 80 From: Blaine Victor MD PCP: Meli Gómez DO Status: REG CLI Study: Chest PA and Lateral Date of Exam: 12/04/15 Exam# [id number] Ordering Dr: Meli Gómez DO STUD Y: [...] Blaine Victor MD at 11:18 EDT Tel [phone], Service support [phone], CC: Meli Gómez DO Nanosystems Engineer: Signed 13-Oct-2015 Chest PA and Lateral Result: Comments: See Note; NOTES: [facility] Imaging Services [address] [place] [address] Verdana 4d Chest PA and Lateral MR#: [id number] Acct: [id number] Name: JESENIA AYAD Brooks Rep #: [id number] : 1935 F 80 From: Scott Richard MD PCP: Meli Gómez DO Status: REG CLI Study: Chest PA and Lateral Date of Exam: 10/13/15 Exam# [id number] Ordering Dr: Tessa Cruz MD STUDY: X-RAY [...] at 15:58 EDT Tel , Service support [phone], RAD/Chest PA and Lateral IMPRESSION: Previously noted right pulmonary infiltrate is clear. Status post right partial pneumon ectomy. Electronically Signed: Scott Richard MD, FACR at 15:58 EDT , Service support [phone], CC: Meli Gómez DO; Jamie Cruz MD Nanosystems Engineer: Signed 18-Sep-2015 History and Physical Exam Result: Comments: See Note; NOTES: [facility] Medical Records Department [address] [place] [address] History and Physical 09/17/15 1442 MR#: [id number] Acct: [id number] Name: AYAD BANUELOS Rep #: [id number] : 1935 80 From: Jarvis Loyola PA-C PCP: Meli Gómez DO Status: PRE IN Location: [facility] DATE OF SERVICE: This is Jarvis Loyola PA-C dictat ing a preoperative history and physical exam per Dr. Renny Wyman. PRIMARY CARE PHYSICIAN: Meil Gómez D.O. PROCEDURE TYPE: Left total knee arthroplasty. PROCEDURE DATE: September 29, 2015 ATTEND ING PHYSICIAN: Renny Wyman M.D. HISTORY OF PRESENT ILLNESS: This is an 80-year-old female, who has been a well-established patient of [facility]. The patient oconnell s had ongoing left [...] is helpful. The patient has been [facility] and has been performing home [...] noted in the medical record. Please see [facility] medical history sheet. MEDIC AL PROBLEMS: 1. [...] intact. 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 The patient has [id number] of the medial compartment. There are osteophytes [...] by Dr. Cruz as well as Dr. Gómez. Jarvis Loyola PA-C T: JEAN CLAUDE JOB: [id number] 09/18/15 0840 <Electronically signed by Jarvis Loyola PA-C> Date: Time: Jarvis Loyola PA-C CC: Meli Gómez DO; Jarvis ROBB Date Dictated: 09/17/151441 Date Transcribed: 06/02 Nanosystems Engineer: Signed ____ I have re-examined the patient. There are no clinical changes since date of exam. ____ See Progress Notes for Changes ____ Dictated on Admission Da te: Time: Signature: -May-2015 Echocardiogram Complete Result: Comments: See Note; NOTES: [facility] Cardiovascular Services [address] [place] [address] Echo Complete 05/25/15 1414 MR#: [id number] Acct: [id number] Name: AYAD MENON Rep #: [id number] : 1935 79 From: Reece Rae MD Attending Dr: Meli Gómez DO Status: REG CLI Ordering Dr: Meli Gómez DO Date: 05/25/15 Location: [facility] Sex: F C Admitted: P valery This was a 2D Doppler, Color Flow [...] Physician: Meli Gómez D.O. Performed By: Nelda Alanis, YVAN 05/25/15 1607 Date ____ Reece Rae MD CC: Meli Gómez DO Date Dictated: 05/25/15 1414 Date Transcribed: 05/25/151606 Nanosystems Engineer: Signed 20-May-2015 ELECTROCARDIOGRAM, COMPLETE (ECG) (25305) Comments: ekg showed normal sinus rhythym, normal axis, no acute st/t wave changes Result: [MEASUREMENTS ANALYSIS] Date of Test: 05/20/2015 12:44:57; Heart Rate: 60; VT Interval: 158; QRS: 102; QT Interval: 422; Corrected QT Interval (QTc): 422; P Wave [place]: 37; QRS Wave [place]: 38; T Wave [place] : 37; Blood Pressure: 120/66 [ECG DIAGNOSTIC STATEMENTS] Date of Test: 05/20/2015 12:44:57; Summary: Sinus Rhythm WITHIN NORMAL LIMITS 01-May-2015 Carotid Duplex Ultrasound Result: Comments: See Note; NOTES: [facility] Cardiovascular Services [address] [place] [address] Carotid Duplex Ultrasound 04/28/15 1358 MR#: [id number] Acct: [id number] Name: AYAD BANUELOS Rep #: [id number] : 1935 79 From: Rashawn Andujar MD [...] in the left bulb. Procedure Carotid Duplex 83407. The exam was diagnostic. Exam performed in department. Interpretation Summary Mild (<50%) stenosis right extracranial internal carotid. Mild (<50%) stenosis left extracranial internet marketing manager al carotid. Flow within the vertebral arteries is antegrade bilaterally. Ordering Physician: Meli Vaughan Performed By: Laina Pendleton, FLORECITA, RVT 05/01/15 1007 Date Rashawn Andujar MD CC: Meli Gómez DO Date Dictated: 04/28/15 1358 Date Transcribed: 05/01/15 1007 Nanosystems Engineer: Signed 28-Apr-2015 Chest without Contrast Result: Comments: See Note; NOTES: [facility] Imaging Services [address] [place] [address] [facility] 4d Chest without Contrast MR#: [id number] Acct: [id number] Name: AYAD AGUERO Rep #: [id number] : 1935 F 79 From: Blaine Victor MD PCP: Meli Gómez DO Status: REG CLI Study: Chest without Contrast Date of Exam: 04/28/15 Exam# [id number] Ordering Dr: Jamie Vigil MD STUDY: CT [...] Marci Tilley MD at 9:45 EST Tel [phone], Service support [phone], CC: Meli Gómez DO; Jamie Cruz MD Nanosystems Engineer: Signed 21-Apr-2015 Bilat Scrn Digital AND CAD Result: Comments: See Note; NOTES: [facility] Imaging Services [address] [place] [address] Verdana 4d Bilat Scrn Digital AND CAD MR#: [id number] Acct: [id number] Name: AYAD BANUELOS Rep #: [id number] : 1935 F 79 From: Blaine Victor MD PCP: Meli Gómez DO Status: REG CLI Study: Bilat Scrn Digital AND CAD Date of Exam: 04/21/15 Exam# [id number] Shalini lugo Dr: Meli Gómez DO MAMMOGRAPHY [...] delay biopsy of a clinically suspicious abnormality. [id number] Electronically Signed: Blaine rios MD at 10:09 EST Tel [phone], Service support [phone], CC: Meli Gómez DO Nanosystems Engineer: Signed 27-Nov-2014 Dexa Bone Density Study (HP) Result: Comments: See Note; NOTES: [facility] Imaging Services [address] [place] [address] Bone Density Report MR#: [id number] Acct: [id number] Name: AYAD BANUELOS Rep #: [id number] : 1935 F 79 From: Blaine Victor MD PCP: Meli Gómez DO Status: REG CLI Study: Dexa Bone Density Study (HP) Date of Exam: 11/27/14 Exam# [id number] Ordering Dr: Meli Gómez DO STUDY: DUAL [...] Blaine Victor MD at 13:39 EDT Tel [phone], Service support [phone], CC: Meli Gómez DO Nanosystems Engineer: Signed 16-Sep-2014 PT Discharge Summary Result: Comments: See Note; NOTES: [facility] [address] [place] [address]. [address] [place] [address] Fax REHABILITATION SERVICES DISCHARGE SUMMARY MR#: [id number] Acct: [id number] Name: AYAD BANUELOS Rep #: [id number] : 1935 79 From: Candace Chacon Referring DrUnique: Meli Gómez DO Status: DIS RCR Eval [...] infection. Lower extremity functional score equals 59/80, H0566-AC and P4018-JH. I recommended that she continue independent gym exercises through [facility] and I am discharging her today at her request. Candace Chacon, PT T: NTS JOB: [id number] <El ectronically signed by Candace Chacon > 09/16/14 1524 CC: Signed 13-Aug-2014 Inital Evaluation - PT Result: Comments: See Note; NOTES: [facility] [address] [place], [place] [address] Fax REHABILITATION SERVICES INITIAL EVALUATION MR#: [id number] Acct: [id number] Name: AYAD BANUELOS Rep #: [id number] : 1935 79 From: Candace Chacon Referring Dr.: Emily Bravo Status: REG RCR Insurance: [employer] [...] possible infection and when I spoke with [facility], they recommended holding physical therapy until [...] now. After her surgery, she went to [facility]'s tertiary care unit for about 1 [...] to see this patient 2-3 times a yonis son x4-6 weeks for right knee modalities as needed, range of motion/stretching/strengthening and independent exercise instruction along with gait/balance training to help meet the above goals. She was agreeable with this plan of care. Candace Chacon, PT T: [facility] JOB: [id number] <Electronically signed by Candace Chacon > 08/13/14 1049 CC: Signed For Medicare only, by signing this I certify the plan of care. Physicians Signature Date 05-Aug-2014 Emergency Department Summary Result: Comments: See Note; NOTES: [facility] Medical Records Department [address] [place] [address] Emergency Department Summary MR#: [id number] Acct: [id number] Name: JESENIA AYAD M Rep #: [id number] : 1935 78 From: Renny John MD [...] & [facility] JOB: [id number] 08/05/14 1003 <Electronically signed by Renny John MD> Date Renny John MD CC: Meli Gómez DO; Renny Wyman MD Date Dictated: 08/02/142300 Date Transcribed: 08/02/142300 Nanosystems Engineer: Signed 02-Aug-2014 Discharge Instruction Result: Comments: See Note; NOTES: [facility] Medical Records Department [address] [place] [address] Discharge Instruction 08/02/142250 MR#: [id number] Acct: [id number] Name: AYAD BANUELOS Rep #: [id number] : 1935 78 From: Renny John MD [...] contact your doctor. Call [facility] jeronimo ) or report to the closest Emergency Room. Call 911 if necessary. 08/02/14 3325 <Electronically signed by Renny John MD> Date Renny John MD Cosigner Signature (If Indicated): Date CC: Meli Gómez DO 15-Jul-2014 History and Physical Exam Result: Comments: See Note; NOTES: [facility] Medical Records Department [address] [facility] [address] History and Physical 07/11/14 1431 MR#: [id number] Acct: [id number] Name: AYAD BANUELOS Rep #: [id number] : 1935 78 From: Emily Bravo PCP: Meli Gómez DO Status: PRE IN Location: [facility] DATE OF SERVICE: This is Emily Bravo [...] on the right. She has been unde orthopedic care for an extended period of [...] week. REVIEW OF SYSTEMS: Documented in the [facility] medical history sheet. ALLERGIES: MORPHINE, ALTHOUGH NOT [...] right knee dated July 02, 2012 at [facility] [place], weightbearing, AP, tunnel, sunrise, lateral views with [...] will be reviewed and documented in the [facility] electronic medical system for review. IMPRESSION: [...] form. CLARISSE Dutton T: JEAN CLAUDE JOB: [id number] 07/15/14 1226 <Electronically signed by Emily Bravo > Date: Time: Emily Bravo CC: Emily Gómez DO Date Dictated: 07/11/14 143 Date Transcribed: 03/27 /15 1431 Nanosystems Engineer: Signed ____ I have re-examined the patient. There are no clinical changes since date of exam. ____ See Progress Notes for Changes ____ Dictated on Admission Dany e: Time: Signature: -Apr-2014 Carotid Duplex Ultrasound Result: Comments: See Note; NOTES: [facility] Cardiovascular Services [address] [place] [address] Carotid Duplex Ultrasound 04/28/14 1326 MR#: [id number] Acct: [id number] Cooper e: JESENIAPUNEETIrving Guy Rep #: [id number] : 1935 78 From: Rashawn Andujar MD [...] significant atherosclerotic plaque noted in the left social worker [employer] al carotid artery. Antegrade flow is noted in the left vertebral artery. There is no significant atherosclerotic plaque noted in the left bulb. Procedure Carotid Duplex 19429. Exam performed in [facility]. Interpretation Summary Mild (<50%) stenosis right extracranial internal carotid. Mild (<50%) stenosis left extracranial internal carotid. Flow within the vertebral arterie s is antegrade bilaterally. Ordering Physician: Meli Gómez Performed By: Fadia Cummings RDCS and Student 05/02/142038 Date Rashawn Andujar MD CC: Meli Gómez DO Da te Dictated: 04/28/14 1326 Date Transcribed: 05/02/142038 Nanosystems Engineer: Signed 28-Apr-2014 Chest without Contrast Result: Comments: See Note; NOTES: [facility] Imaging Services [address] [place] [address] CAT Scan Report MR#: [id number] Acct: [id number] Name: AYAD BANUELOS Rep #: [id number] : 1935 F 78 From: Blaine Victor MD PCP: Meli Gómez DO Status: REG CLI Study: Chest without Contrast Date of Exam: 04/28/14 Exam# [id number] Ordering Dr: Jamie Cruz MD UDY: CT [...] Blaine Victor MD at 15:55 EST Tel [phone], Service support [phone], CC: Meli Gómez DO; Jamie Cruz MD Nanosystems Engineer: Signed 18-Apr-2014 Bilat Scrn Digital AND CAD Result: Comments: See Note; NOTES: [facility] Imaging Services [address] [place], [place] [address] [address] Breast Imaging Report MR#: [id number] Acct: [id number] Name: AYAD BANUELOS Rep #: [id number] : 1935 F 78 From: Blaine Victor MD PCP: Meli Gómez DO Status: REG CLI Study: [place] [employer] Digital AND CAD Date of Exam: 04/18/14 Exam# [id number] Ordering Dr: Meli Gómez DO MAMMOGRAPHY - [...] Blaine Victor MD at 13:33 EST Tel [phone], Service support [phone], CC: Meli Gómez DO Nanosystems Engineer: Signed 01-Apr-2013 [employer] Digital & CAD Result: Comments: See Note; NOTES: [facility] Imaging Services [address] [place] [address] Breast Imaging Report MR#: [id number] Acct: [id number] Name: AYAD BANUELOS Rep #: [id number] : 1935 F 77 From: Blaine Victor MD PCP: Status: REG CLI Exam# [id number] Ordering Dr: Meli Gómez DO MAMMOGRAPHY - [...] M.D. at 16:07 EST , Service support [phone], CC: Meli Gómez DO Nanosystems Engineer: Signed Immunization Name Dates Details Influenza (3 years and up) on: 23-Jan-2009 Comments: Lot #[id number] deltoidgiven by:CDH Family History Unknown Family Member [...] smoker Vital Signs Date Test Result Details :00 Temperature 98.3 f Comments: Method: Temporal Pulse [...] kg/m2 Body Surface Area Calculated 1.78 m2 :38 Temperature 97.4 f Pulse 72 /min Comments: [...] 0.00 cm Results Date Description Value Details :04 LIPID PANEL (60056) Comments: PATIENT WAS FASTINGPERFORMED BY: [employer]70 [facility] [id number] LDL/HDL Ratio 1.2 {ratio} (Normal) Range: 0.0-3.2 [...] Range: 100-199 :04 CBC with auto diff (92178) Comments: PATIENT WAS FASTINGPERFORMED BY: [employer]70 [facility] [id number] Immature Grans (Abs) 0.0 {x10E3/uL} (Normal) Range: [...] 3.77-5.28 WBC 7.7 {x10E3/uL} (Normal) Range: 3.4-10.8 88-Lyz-96969:04 METABOLIC PANEL, COMPREHENSIVE Comments: PATIENT WAS FASTINGPERFORMED BY: LabCoSaint James HospitalNwuoqa4638 [facility] [id number] (92583) ALT (SGPT) 19 [iU]/L (Normal) Range: 0-32 [...] 8-27 Glucose 90 mg/dL (Normal) Range: 65-99 :04 HGB A1C (08908) Comments: PATIENT WAS FASTINGPERFORMED BY: [employer] Oxzleg0072 [facility] [id number]; appt 02/06 Hemoglobin A1c 5.8 % (Abnormal) Range: 4.8-5.6 Comments: . Prediabetes: 5.7 - 6.4 Diabetes: >6.4 Glycemic control for adults with diabetes: <7.0 :04 TSH (94135) Comments: PATIENT WAS FASTINGPERFORMED BY: LabReds10 Xhiiij3684 [facility] [id number] TSH 2.980 {uIU/mL} (Normal) Range: 0.450-4.500 :09 CBC with auto diff (54875) Comments: PATIENT NOT FASTINGPERFORMED BY: LabReds10Saint James HospitalFgsreq0268 [facility] [id number] Immature Grans (Abs) 0.0 {x10E3/uL} (Normal) Range: [...] 3.77-5.28 WBC 7.6 {x10E3/uL} (Normal) Range: 3.4-10.8 79-Dhc-14624:09 METABOLIC PANEL, COMPREHENSIVE Comments: PATIENT NOT FASTINGPERFORMED BY: LabCoSaint James HospitalUjjuak6868 [facility] [id number] (11506) ALT (SGPT) 19 [iU]/L (Normal) Range: 0-32 [...] 8-27 Glucose 95 mg/dL (Normal) Range: 65-99 65-Gmw-14861:09 HGB A1C (41336) Comments: PATIENT NOT FASTINGPERFORMED BY: [facility]6370 [facility] [id number] Hemoglobin A1c 5.6 % (Normal) Range: 4.8-5.6 Comments: . Pre-diabetes: 5.7 - 6.4 Diabetes: >6.4 Glycemic control for adults with diabetes: <7.0 :09 MICROALBUMIN URINE QUANT Comments: PATIENT NOT FASTINGPERFORMED BY: [place] 8322570 [facility] [id number] (73488) Alb/Creat Ratio 3.9 {mg/g_creat} (Normal) Range: 0.0-30.0 Albumin, Urine 3.0 ug/mL (Normal) Creatinine, Urine 77.8 mg/dL (Normal) :09 LIPID PANEL (50121) Comments: PATIENT NOT FASTINGPERFORMED BY: [place] 8322570 [facility] [id number] LDL/HDL Ratio 1.5 {ratio} (Normal) Range: 0.0-3.2 Comments: LDL/HDL Ratio Men Women 1/2 Avg.Risk 1.0 1.5 Av g.Risk 3.6 3.2 2X Avg.Risk 6.2 5.0 3X Avg.Risk 8.0 6.1 LDL Cholesterol Calc 96 mg/dL (Normal) Range: 0-99 VLDL Cholesterol Cas 17 mg/dL (Normal) Range: 5-40 HDL Cholesterol 63 mg/dL (Normal) Triglycerides 85 mg/dL (Normal) Range: 0-149 Cholesterol, Total 176 mg/dL (Normal) Range: 100-199 :49 CBC W/AUTO DIFF WBC Comments: PATIENT NOT FASTINGPERFORMED BY: [address] [id number] Information: NURSE DRAW (40783) Immature Grans (Abs) 0.0 {x10E3/uL} (Normal) Range: [...] 3.77-5.28 WBC 7.2 {x10E3/uL} (Normal) Range: 3.4-10.8 16-Cne-372228:26 TSH (99000) Comments: 6 weeks; PATIENT NOT FASTINGPERFORMED BY: [employer]70 [facility] [id number] TSH 2.730 {uIU/mL} (Normal) Range: 0.450-4.500 2-Qwu-265636:58 HgA1C , Office (52371) HgA1C , Office 5.6 % (Normal) Range: 4.6 - 7.1 :42 LIPID PANEL (27158) Comments: PATIENT WAS FASTINGPERFORMED BY: BioIQGerald Champion Regional Medical CenterMmcbvz3625 [facility] [id number] LDL/HDL Ratio 2.4 {ratio_units} (Normal) Range: 0.0-3.2 Comments: LDL/HDL Ratio Men Women 1/2 Avg.Risk 1.0 1.5 Av g.Risk 3.6 3.2 2X Avg.Risk 6.2 5.0 3X Avg.Risk 8.0 6.1 LDL Cholesterol Calc 134 mg/dL (Abnormal) Range: 0-99 VLDL Cholesterol Cas 27 mg/dL (Normal) Range: 5-40 HDL Cholesterol 56 mg/dL (Normal) Triglycerides 133 mg/dL (Normal) Range: 0-149 Cholesterol, Total 217 mg/dL (Abnormal) Range: 100-199 5-Fkr-610867:58 MICROALBUMIN: CREATININE RATIO Comments: PATIENT NOT FASTINGPERFORMED BY: IPM FranceCoSaint James HospitalAuoahf5413 [facility] [id number] (84464) AND (33335) Microalb/Creat Ratio 5.7 {mg/g_creat} (Normal) Range: 0.0-30.0 Microalbumin, Urine 3.2 ug/mL (Normal) Creatinine, Urine 56.6 mg/dL (Normal) :42 CBC W/AUTO DIFF WBC (91693) Comments: PATIENT WAS FASTINGPERFORMED BY: LabCoSaint James HospitalKdyqjc4612 [facility] [id number] Immature Grans (Abs) 0.0 {x10E3/uL} (Normal) Range: [...] 3.77-5.28 WBC 7.7 {x10E3/uL} (Normal) Range: 3.4-10.8 28-Mqb-90943:42 METABOLIC PANEL, COMPREHENSIVE Comments: PATIENT WAS FASTINGPERFORMED BY: [facility]6370 [facility] [id number] (20393) ALT (SGPT) 14 [iU]/L (Normal) Range: 0-32 [...] 98 mg/dL (Normal) Range: 65-99 :42 TSH (16021) Comments: PATIENT WAS FASTINGPERFORMED BY: LabTurbo-Trac USABlgynt0498 [facility] [id number] TSH 6.380 {uIU/mL} (Abnormal) Range: 0.450-4.500 :38 HgA1C , Office (10203) HgA1C , Office 5.4 % (Normal) Range: 4.6 - 7.1 :31 LIPOPROTEIN, BLD, BY NMR Comments: PATIENT WAS FASTINGPERFORMED BY: LabCoJulia [place] 633217 [facility] [id number] BY: LabMediaSpike6370 [facility] [id number] (82212) LP-IR Score 42 (Normal) Comments: INSULIN RESISTANCE MARKER <--Insulin Sensitive Insulin Resistant--> Percentile in Reference PopulationInsulin Resistance ScoreLP-IR Score Low 25th 50th 75th High <27 27 45 63 >63LP-IR Score is inaccurate if patient is non-fasting. .The LP-IR score is a laboratory developed i [facility] that has beenassociated with insulin resistance and [...] were developed and their performance characteristicsdetermined by [employer]. These assays have not been cleared by [...] 1600 - 2000 Very High > 2000 44-Hej-35534:31 TSH (23115) Comments: PATIENT WAS FASTINGPERFORMED BY: Coro Healthton1447 [facility] [id number] BY: [employer] Smkcgc6343 [facility] [id number] TSH 4.600 {uIU/mL} (Abnormal) Range: 0.450-4.500 00-Orw-56191:31 CBC with auto diff Comments: PATIENT WAS FASTINGPERFORMED BY: Pick a Studentton1447 [facility] [id number] BY: [employer]70 [facility] [id number] (48256) Immature Grans (Abs) 0.0 {x10E3/uL} (Normal) Range: [...] 3.77-5.28 WBC 8.3 {x10E3/uL} (Normal) Range: 3.4-10.8 46-Vyj-82030:31 METABOLIC PANEL, Comments: PATIENT WAS FASTINGPERFORMED BY: [facility] [address] [id number] BY: CB [facility] Pzkxnv3307 [facility] [id number] COMPREHENSIVE (18075) ALT (SGPT) 15 [iU]/L (Normal) Range: 0-32 [...] Glucose, Serum 101 mg/dL (Abnormal) Range: 65-99 28-Ecs-879780:32 Metabolic Panel, Basic Comments: PATIENT NOT FASTINGPERFORMED BY: [facility] Vcgjme2181 [facility] [id number] (13312) Calcium, Serum 9.9 mg/dL (Normal) Range: 8.7-10.3 [...] (Normal) Range: 65-99 :48 HgA1C , Office (98658) HgA1C , Office 5.6 % (Normal) Range: 4.6 - 7.1 :56 CBC W/AUTO DIFF WBC Comments: PATIENT WAS FASTINGPERFORMED BY: BN [facility] Kibylohzwv5035 [facility] [id number] BY: CB [facility] Swhjfl4705 [facility] [id number] (88336) Immature Grans (Abs) 0.0 {x10E3/uL} (Normal) Range: [...] 3.77-5.28 WBC 8.1 {x10E3/uL} (Normal) Range: 3.4-10.8 :56 METABOLIC PANEL, Comments: PATIENT WAS FASTINGPERFORMED BY: JAMR [facility] [id number] BY: LabReds10Saint James HospitalXxhnkb2736 [facility] [id number] COMPREHENSIVE (35654) ALT (SGPT) 16 [iU]/L (Normal) Range: 0-32 [...] Glucose, Serum 93 mg/dL (Normal) Range: 65-99 56-Qwb-34029:56 C-REACT PROT HIGH Comments: PATIENT WAS FASTINGPERFORMED BY: Bio[employer] [id number] BY: LabReds10Saint James HospitalIbbzmw4171 [facility] [id number] SENS(hsCRP) (09595) C-Reactive Protein, Cardiac 1.83 mg/L (Normal) Range: 0.00-3.00 Comments: Relative Risk for Future Cardiovascular Event Low <1.00 Average 1.00 - 3.00 High >3.00 50-Jrt-66727:56 LIPOPROTEIN, BLD, BY NMR Comments: PATIENT WAS FASTINGPERFORMED BY: BN [facility] Yfjdzsepsh6509 [facility] [id number] BY: CB [facility] Wpgiqa7709 [facility] [id number]; non-emergent till apt this week (65786) LP-IR Score <25 (Normal) Comments: INSULIN RESISTANCE MARKER <--Insulin Sensitive Insulin Resistant--> Percentile in Reference PopulationInsulin Resistance ScoreLP-IR Score Low 25th 50th 75th High <27 27 45 63 >63LP-IR Score is inaccurate if patient is non-fasting. .The LP-IR score is a laboratory developed i [facility] that has beenassociated with insulin resistance and [...] were developed and their performance characteristicsdetermined by [employer]. These assays have not been cleared by [...] 1600 - 2000 Very High > 2000 07-Okf-179025:28 URINE ALETHEA CULTURE-ORLIN COL Comments: PATIENT NOT FASTINGPERFORMED BY: [facility] Ymxmyu7373 [facility] [id number] Information: SRC:UC COUNT (81490) Result 1 NG36 (Normal) Comments: No growth in 36 - 48 hours. Urine Culture,Comprehensive Final report (Normal) 44-Tro-675766:30 NuSwab Vaginitis (VG) Comments: PATIENT NOT FASTINGPERFORMED BY: [facility] Zpscgprzad7610 [facility] [id number] Information: SRC:VA Trich vag by SIDNEY Negative (Normal) Hali glabrata, SIDNEY Negative (Normal) Comments: This test was developed and its performance characteristics determinedby [facility]. It has not been cleared or [...] was developed and its performance characteristicsdetermined by [facility]. It has not been cleared or approvedby the Food and Drug Administration. The FDA has determinedthat such clearance or approval is not necessary. BVAB 2 Low - 0 {Score} (Normal) Atopobium vaginae Low - 0 {Score} (Normal) 3-Mcf-794156:22 CBC W/AUTO DIFF WBC Comments: PATIENT WAS FASTINGPERFORMED BY: NUBIA [facility] Cbeqeh7074 [facility] [id number] Information: NURSE DRAW (04736) Immature Grans (Abs) 0.0 {x10E3/uL} (Normal) Range: [...] 3.77-5.28 WBC 7.7 {x10E3/uL} (Normal) Range: 3.4-10.8 7-Lxn-308625:22 METABOLIC PANEL, COMPREHENSIVE Comments: PATIENT WAS FASTINGPERFORMED BY: [facility] Uiwawz8288 [facility] [id number]; [facility]- non-emergent till apt (90885) ALT (SGPT) 18 [iU]/L (Normal) Range: 0-32 [...] Glucose, Serum 87 mg/dL (Normal) Range: 65-99 3-Oos-784786:22 MICROALBUMIN: CREATININE RATIO Comments: PATIENT WAS FASTINGPERFORMED BY: [facility] Bbmjwk2630 [facility] [id number] (40504) AND (72029) Microalb/Creat Ratio 7.1 {mg/g_creat} (Normal) Range: 0.0-30.0 Microalbumin, Urine 9.3 ug/mL (Normal) Creatinine, Urine 130.6 mg/dL (Normal) 19-Uvj-890959:08 Urinalysis, Office (64177) UA - LEUKOCYTE ESTERASE Negative (Normal) UA - NITRITE Negative (Normal) URINE UROBILINGN ORLIN TIMED Normal mg/dL (Normal) UA - PROTEIN Negative mg/dL (Normal) UA - PH 7 (Normal) UA - BLOOD Negative (Normal) UA - SPECIFIC GRAVITY 1.020 (Normal) UA - KETONES Negative mg/dL (Normal) UA - BILIRUBIN Negative (Normal) UA - GLUCOSE Negative (Normal) 21-Nyu-636313:08 HgA1C , Office (27733) HgA1C , Office 5.7 % (Normal) Range: 4.6 - 7.1 18-Feb-20168:42 METABOLIC PANEL, COMPREHENSIVE Comments: PATIENT WAS FASTINGPERFORMED BY: LabCoSaint James HospitalCtshjf6929 [facility] [id number] (54836) ALT (SGPT) 16 [iU]/L (Normal) Range: 0-32 [...] Glucose, Serum 94 mg/dL (Normal) Range: 65-99 :42 CBC W/AUTO DIFF WBC (73517) Comments: PATIENT WAS FASTINGPERFORMED BY: [facility]6370 [facility] [id number] Immature Grans (Abs) 0.0 {x10E3/uL} (Normal) Range: [...] 7.4 {x10E3/uL} (Normal) Range: 3.4-10.8 :42 TSH (03731) Comments: PATIENT WAS FASTINGPERFORMED BY: [facility]6370 [facility] [id number] TSH 3.380 {uIU/mL} (Normal) Range: 0.450-4.500 :42 LIPID PANEL (43912) Comments: PATIENT WAS FASTINGPERFORMED BY: [address] [id number] LDL/HDL Ratio 2.4 {ratio_units} (Normal) Range: 0.0-3.2 [...] (LACTATE DEHYDROGENASE) Comments: PATIENT WAS FASTINGPERFORMED BY: [place] 8322570 [facility] [id number] (82002) LDH 201 [iU]/L (Normal) Range: 119-226 29-Rxe-512477:42 METABOLIC PANEL, COMPREHENSIVE Comments: PATIENT NOT FASTINGPERFORMED BY: [place] 8322570 [facility] [id number] (86908) ALT (SGPT) 17 [iU]/L (Normal) Range: 0-32 [...] Glucose, Serum 75 mg/dL (Normal) Range: 65-99 27-Xfg-829029:42 SED RATE ERYTHROCYTE (34252) Comments: PATIENT NOT FASTINGPERFORMED BY: [employer] Egpsen6751 [facility] [id number] Sedimentation Rate-Westergren 21 mm/h (Normal) Range: 0-40 74-Uwa-591544:42 C-REACTIVE PROTEIN (13628) Comments: PATIENT NOT FASTINGPERFORMED BY: [employer] Abgpkl2135 [facility] [id number] C-Reactive Protein, Quant 1.7 mg/L (Normal) Range: 0.0-4.9 97-Hue-517111:42 LDH (LD) (LACTATE DEHYDROGENASE) Comments: PATIENT NOT FASTINGPERFORMED BY: [employer] Emovob3844 [facility] [id number] (05949) LDH 231 [iU]/L (Abnormal) Range: 119-226 33-Nop-504620:42 TSH (65396) Comments: PATIENT NOT FASTINGPERFORMED BY: BioIQSaint James HospitalEhxyds3951 [facility] [id number] TSH 2.050 {uIU/mL} (Normal) Range: 0.450-4.500 :42 CBC with auto diff Comments: PATIENT NOT FASTINGPERFORMED BY: [facility] HospitalCoSaint James HospitalVtxfub1659 [facility] [id number] Information: [id number] (96167) Immature Grans (Abs) 0.0 {x10E3/uL} (Normal) Range: [...] 3.77-5.28 WBC 8.7 {x10E3/uL} (Normal) Range: 3.4-10.8 :20 TSH (98221) Comments: PATIENT NOT FASTINGPERFORMED BY: LabCoSaint James HospitalTfkzqr3368 [facility] [id number] TSH 1.720 {uIU/mL} (Normal) Range: 0.450-4.500 :20 CBC with auto diff Comments: PATIENT NOT FASTINGPERFORMED BY: [place] 8322570 [facility] [id number] Information: [id number] (43019) Immature Grans (Abs) 0.0 {x10E3/uL} (Normal) Range: [...] 3.77-5.28 WBC 8.9 {x10E3/uL} (Normal) Range: 3.4-10.8 3-Ofm-675333:20 METABOLIC PANEL, COMPREHENSIVE Comments: PATIENT NOT FASTINGPERFORMED BY: [facility]6370 [facility] [id number] (56853) ALT (SGPT) 17 [iU]/L (Normal) Range: 0-32 [...] Glucose, Serum 97 mg/dL (Normal) Range: 65-99 5-Ioz-205900:43 MRSA/SAID SCREEN Comments: [facility] Quqdfdyijo90[address] [place], [place], [id number] MRSA+SAID SCRN See Note (Normal) Comments: MRSA/SAID SCRNS. AUREUS S. aureus NegativeMRSA MRSA Negative 72-Lcw-87613:29 Microscopic Examination Comments: PATIENT WAS FASTINGPERFORMED BY: [facility] Ltxndb4639 [facility] [id number] Bacteria None seen (Normal) Mucus Threads Present (Normal) Epithelial Cells (non renal) 0-10 {/hpf} (Normal) Range: 0 - 10 RBC 0-2 {/hpf} (Normal) Range: 0 - 2 WBC 0-5 {/hpf} (Normal) Range: 0 - 5 96-Tjd-512789:14 [facility] STD (STD W/ Comments: PATIENT NOT FASTINGPERFORMED BY: [employer]M [place] [id number] Information: [id number] Herpes) (69808) HSV 2 SIDNEY Negative (Normal) HSV 1 SIDNEY Negative (Normal) Neisseria gonorrhoeae, Negative (Normal) SIDNEY Chlamydia trachomatis, Negative (Normal) SIDNEY Trich vag by SIDNEY Negative (Normal) Hali glabrata, SIDNEY Negative (Normal) Comments: This test was developed and its performance characteristics determinedby [employer]. It has not been cleared or approved [...] was developed and its performance characteristicsdetermined by [employer]. It has not been cleared or approvedby the Food and Drug Administration. The FDA has determinedthat such clearance or approval is not necessary. BVAB 2 Low - 0 {Score} (Normal) Atopobium vaginae Low - 0 {Score} (Normal) :29 PTT (Activated Partial Comments: PATIENT WAS FASTINGPERFORMED BY: [facility]6370 [facility] [id number] Thromboplastin Time) (62377) aPTT 30 {sec} (Normal) Range: 24-33 Comments: This test has not been validated for monitoring unfractionated heparintherapy. aPTT-based therapeutic ranges for unfractionated heparintherapy have not been established. For general guidelines onHeparin monitoring, refer to the [facility] Directory of Services. :29 PT (Prothrobim Time) (94627) Comments: PATIENT WAS FASTINGPERFORMED BY: [facility]6370 [facility] [id number] Prothrombin Time 10.9 {sec} (Normal) Range: 9.1-12.0 INR 1.1 (Normal) Range: 0.8-1.2 Comments: Reference interval is for non-anticoagulated patients. . Suggested INR therapeutic range for Vitamin K anta gonist therapy: Standard Dose (moderate intensity therapeutic range): 2.0 - 3.0 Higher intensity therapeutic range 2.5 - 3.5 :29 URINALYSIS, W/ MICRO (03974) Comments: PATIENT WAS FASTINGPERFORMED BY: Engine EcologySaint James HospitalAhslhn1827 [facility] [id number] Microscopic Examination See below: (Normal) Comments: Microscopic was indicated and was performed. Microscopic Examination MICRON (Normal) Comments: Microscopic follows if indicated. Nitrite, Urine Negative (Normal) Urobilinogen,Semi-Qn 1.0 mg/dL (Normal) Range: 0.2-1.0 Bilirubin Negative (Normal) Occult Blood Negative (Normal) Ketones Negative (Normal) Glucose Negative (Normal) Protein Negative (Normal) WBC Esterase Negative (Normal) Appearance Clear (Normal) Urine-Color Yellow (Normal) pH 6.0 (Normal) Range: 5.0-7.5 Specific [place] 1.017 (Normal) Range: 1.005-1.030 :29 CBC W/AUTO DIFF WBC Comments: PATIENT WAS FASTINGPERFORMED BY: Engine EcologySaint James HospitalKboker4826 [facility] [id number] Information: [id number] (25416) Immature Grans (Abs) 0.0 {x10E3/uL} (Normal) Range: [...] 3.77-5.28 WBC 6.1 {x10E3/uL} (Normal) Range: 3.4-10.8 70-Piq-87142:29 METABOLIC PANEL, COMPREHENSIVE Comments: PATIENT WAS FASTINGPERFORMED BY: LabCoSaint James HospitalRcaddi6505 [facility] [id number]; non- emergent till apt (83717) ALT (SGPT) 17 [iU]/L (Normal) Range: 0-32 [...] Glucose, Serum 89 mg/dL (Normal) Range: 65-99 06-Kmw-647669:0 COLON BIOPSY (CHOOSE See Note (Normal) Comments: [facility] [address] [place], [place], [address] 5 SITE) Comments: Patient: AYAD BANUELOS : 1935 (79/F) Acct Num: [id number] Phys: Cesario Tavares Unit Num: [id number] Loc: LABSPEC Specimen: [id number] Received: 05/14/15 - 1599 Spec Type: Azam MARQUIS BX TISSUES TISSUES: GROSS DESCRIPTION Received is one container labeled with the patient name and designated proximaltransverse colon. The specimen consists of two irregular f ragments of light lan soft tissue that in aggregate measure 0.3 x 0.2 x 0.1 cm. The specimen is totally submitted in one cassette. / AM:karen 05/15/15 TC:1 CPT: 72764 HEADER OPERATION: Colonoscopy with biopsies PRE-OP DIAGNOSIS: H/O polyps TISSUE SUBMITTED: Proximal transverse colon, hepatic flexure biopsy, rule out adenoma MICROSCOPIC DESCRIPTION Slides are reviewed. MICROSCOPIC DI AGNOSIS Polyp transverse colon, hepatic flexure, biopsy: Fragments of tubular adenoma. SJ:karen 05/18/15 Signed Bobby Chahal 05/18/15 <si gnature on file> 69-Uwc-449423:32 Hemoglobin Glyclated (HGB Comments: PATIENT NOT FASTINGPERFORMED BY: NUBIA [facility] Tflqdy1701 [facility] [id number] Information: [id number] A1C) (72269) Hemoglobin A1c 5.4 % (Normal) Range: 4.8-5.6 Comments: . Pre-diabetes: 5.7 - 6.4 Diabetes: >6.4 Glycemic control for adults with diabetes: <7.0 :32 TSH (18542) Comments: PATIENT NOT FASTINGPERFORMED BY: [facility]6370 [facility] [id number] TSH 2.700 {uIU/mL} (Normal) Range: 0.450-4.500 :32 T4, FREE (THYROXINE) (14783) Comments: PATIENT NOT FASTINGPERFORMED BY: [facility]6370 [facility] [id number] T4,Free(Direct) 1.64 ng/dL (Normal) Range: 0.82-1.77 :32 T3, FREE (TRIDOTHYRONINE) (49818) Comments: PATIENT NOT FASTINGPERFORMED BY: [facility]6370 [facility] [id number] Triiodothyronine,Free,Serum 2.9 pg/mL (Normal) Range: 2.0-4.4 :06 LIPID PANEL (53345) Comments: PATIENT WAS FASTINGPERFORMED BY: [facility]6370 [facility] [id number] LDL/HDL Ratio 2.0 {ratio_units} (Normal) Range: 0.0-3.2 [...] non-emergent till apt :06 Vitamin D Hydroxy (38217) Comments: PATIENT WAS FASTINGPERFORMED BY: LabCoSaint James HospitalHtcfhx3096 [facility] [id number] Vitamin D, 25-Hydroxy 44.7 ng/mL (Normal) Range: 30.0-100.0 Comments: Vitamin D deficiency has been defined by the Tolstoy ofMedicine and an Endocrine Society practice guideline as alevel of serum 25-OH vitamin D less than 20 ng/mL (1,2).The Endocrine Society went on to further define vitamin Dinsufficiency as a level between 21 and 29 ng/mL (2).1. IOM ([place] of Medicine). 2010. Dietary reference intakes for calcium and D. [place]: The National Academies Press.2. Candace MF, Ronak NC, Andrew OCONNELL, et al. Evaluation, treatment, and prevention of vitamin D deficiency: an Endocrine Society clinical practice guideline. JCEM. 2010; 96(7):1911-30. :06 METABOLIC PANEL, Comments: PATIENT WAS FASTINGPERFORMED BY: [facility] Amkmfs8161 [facility] [id number] Information: [id number] COMPREHENSIVE (25703) ALT (SGPT) 18 [iU]/L (Normal) Range: 0-32 [...] Glucose, Serum 81 mg/dL (Normal) Range: 65-99 1-Qed-798580:42 CBC With Differential/Platelet Comments: PATIENT NOT FASTINGPERFORMED BY: [facility] Ytqzof2207 [facility] [id number] Information: [id number] Immature Grans (Abs) 0.0 {x10E3/uL} (Normal) Range: [...] (Normal) Range: 3.4-10.8 :36 HgA1C , Office (16830) HgA1C , Office 5.8 % (Normal) Range: 4.6 - 7.1 :25 Comp. Metabolic Panel (14) Comments: PATIENT WAS FASTINGPERFORMED BY: [facility] Jxuxkg6661 [facility] [id number] Information: [id number] ALT (SGPT) 14 [iU]/L (Normal) Range: 0-32 [...] Glucose, Serum 96 mg/dL (Normal) Range: 65-99 06-Zxr-92807:25 Lipid Panel With LDL/HDL Comments: PATIENT WAS FASTINGPERFORMED BY: [facility]6370 [facility] [id number] Ratio LDL/HDL Ratio 1.7 {ratio_units} Range: 0.0-3.2 [...] {uIU/mL} (Normal) Comments: PATIENT WAS FASTINGPERFORMED BY: [facility]6370 [facility] [id number] 8:25 Range: 0.450-4.500 8-Tod-358415:56 CBC W/Diff, Automated Comments: Test performed at:[facility] [address] [place] [address] Absolute Lymph 1.88 {X10_3/ul} (Normal) [...] 4.2-5.4 WBC 6.7 K/mm3 (Normal) Range: 4.4-11.0 2-Oju-104330:56 Comprehensive Metabolic Profil Comments: Test performed at:[facility] [address] [place] [address] GAP 8 (Normal) Range: 5-15 CO2 24.0 [...] 7-18 GLU 85 mg/dL (Normal) Range: 70-110 51-Smt-002159:51 MRSA/SAID SCREEN Comments: Test performed at:[facility] [address] [place], [place] [id number] MRSA+SAID SCRN See Note (Normal) Comments: MRSA/SAID SCRNS. AUREUS S. aureus NegativeMRSA MRSA Negative :32 URINE ALETHEA CULTURE-IDENTIFICATN Comments: PATIENT NOT FASTINGPERFORMED BY: [facility] [place] [address] [id number] Information: [id number] (24392) Result 1 MUG (Normal) Comments: Mixed urogenital Colonies/mL Urine Culture,Comprehensive Final report (Normal) :39 Microscopic Examination Comments: PATIENT WAS FASTINGPERFORMED BY: [facility]6370 [facility] [id number] Bacteria Few (Normal) Mucus Threads Present (Normal) Epithelial Cells (non renal) 0-10 {/hpf} (Normal) Range: 0 - 10 RBC 0-2 {/hpf} (Normal) Range: 0 - 2 WBC 6-10 {/hpf} (Abnormal) Range: 0 - 5 :39 PTT (Activated Partial Comments: PATIENT WAS FASTINGPERFORMED BY: [facility] [place] [address] [id number] Thromboplastin Time) (09208) aPTT 29 {sec} (Normal) Range: 24-33 Comments: This test has not been validated for monitoring unfractionated heparintherapy. aPTT-based therapeutic ranges for unfractionated heparintherapy have not been established. For general guidelines onHeparin monitoring, refer to the [facility] Directory of Services. :39 PT (Prothrobim Time) (49321) Comments: PATIENT WAS FASTINGPERFORMED BY: [facility]6370 [facility] [id number] Prothrombin Time 11.2 {sec} (Normal) Range: 9.1-12.0 INR 1.1 (Normal) Range: 0.8-1.2 Comments: Reference interval is for non-anticoagulated patients. . Suggested INR therapeutic range for Vitamin K anta gonist therapy: Standard Dose (moderate intensity therapeutic range): 2.0 - 3.0 Higher intensity therapeutic range 2.5 - 3.5 :39 TSH (01341) Comments: PATIENT WAS FASTINGPERFORMED BY: BioIQSaint James HospitalOrhbxj1701 [facility] [id number] TSH 4.360 {uIU/mL} (Normal) Range: 0.450-4.500 :39 CBC W/AUTO DIFF WBC Comments: PATIENT WAS FASTINGPERFORMED BY: BioIQSaint James HospitalYxfosv2334 [facility] [id number] Information: [id number] (04988) Immature Grans (Abs) 0.0 {x10E3/uL} (Normal) Range: [...] COMPREHENSIVE Comments: PATIENT WAS FASTINGPERFORMED BY: NUBIA Sonico [facility] [id number] (89789) ALT (SGPT) 17 [iU]/L (Normal) Range: 0-32 [...] mg/dL (Normal) Range: 65-99 :39 LIPID PANEL (94194) Comments: PATIENT WAS FASTINGPERFORMED BY: [employer] RoadDublin [place] [id number] LDL/HDL Ratio 1.8 {ratio_units} (Normal) Range: 0.0-3.2 [...] (Abnormal) Range: 100-199 :39 URINALYSIS, W/ MICRO (62676) Comments: PATIENT WAS FASTINGPERFORMED BY: [facility]6370 [facility] [id number] Microscopic Examination See below: (Normal) Comments: Microscopic was indicated and was performed. Nitrite, Urine Negative (Normal) Urobilinogen,Semi-Qn 0.2 mg/dL (Normal) Range: 0.0-1.9 Bilirubin Negative (Normal) Occult Blood Negative (Normal) Ketones Negative (Normal) Glucose Negative (Normal) Protein Negative (Normal) WBC Esterase 2+ (Abnormal) Appearance Clear (Normal) Urine-Color Yellow (Normal) pH 6.0 (Normal) Range: 5.0-7.5 Specific [place] 1.016 (Normal) Range: 1.005-1.030 6-Fjv-801142:12 HgA1C , Office (44235) HgA1C , Office 5.9 % (Normal) Range: 4.6 - 7.1 :18 CBC WITH MANUAL DIFF Comments: PATIENT WAS FASTINGPERFORMED BY: [facility]6370 [facility] [id number] Information: [id number] (11161) Immature Grans (Abs) 0.0 {x10E3/uL} (Normal) Range: [...] {x10E3/uL} (Normal) Range: 3.4-10.8 :18 LIPID PANEL (41419) Comments: PATIENT WAS FASTINGPERFORMED BY: LabCoSaint James HospitalFffbtq3152 [facility] [id number] LDL/HDL Ratio 1.4 {ratio_units} (Normal) Range: 0.0-3.2 [...] PANEL, COMPREHENSIVE Comments: PATIENT WAS FASTINGPERFORMED BY: RadMit [facility] [id number] (35292) ALT (SGPT) 17 [iU]/L (Normal) Range: 0-32 [...] CREATININE RATIO Comments: PATIENT WAS FASTINGPERFORMED BY: Bubok6370 [address] [facility] [id number] (02414) AND (80072) Microalb/Creat Ratio 3.6 {mg/g_creat} Range: 0.0-30.0 (Normal) Microalbumin, Urine 4.5 ug/mL (Normal) Range: 0.0-17.0 Creatinine, Urine 123.4 mg/dL (Normal) Range: 15.0-278.0 GGT 22 [iU]/L (Normal) Comments: PATIENT NOT FASTINGPERFORMED BY: [facility]Prom[facility] Hospital6370 [facility] [id number] Range: 0-60 :17 TSH (17355) Comments: PATIENT NOT FASTINGPERFORMED BY: [facility]6370 [facility] [id number] TSH 2.730 {uIU/mL} (Normal) Range: 0.450-4.500 :17 CBC WITH MANUAL DIFF Comments: PATIENT NOT FASTINGPERFORMED BY: [facility]Prom[facility]6370 [facility] [id number] Information: [id number] (61837) Immature Grans (Abs) 0.0 {x10E3/uL} (Normal) Range: [...] 3.77-5.28 WBC 5.6 {x10E3/uL} (Normal) Range: 3.4-10.8 :17 METABOLIC PANEL, COMPREHENSIVE Comments: PATIENT NOT FASTINGPERFORMED BY: [facility] Johbcv9154 [facility] [id number] (72854) ALT (SGPT) 18 [iU]/L (Normal) Range: 0-32 [...] mg/dL (Normal) Range: 65-99 :17 LIPID PANEL (04036) Comments: PATIENT NOT FASTINGPERFORMED BY: [facility] Elqkko9703 [facility] [id number] LDL/HDL Ratio 1.0 {ratio_units} (Normal) Range: 0.0-3.2 LDL Cholesterol Calc 74 mg/dL (Normal) Range: 0-99 VLDL Cholesterol Cas 14 mg/dL (Normal) Range: 5-40 HDL Cholesterol 72 mg/dL (Normal) Comments: According to ATP-III Guidelines, HDL-C >59 mg/dL is considered anegative risk factor for CHD. Triglycerides 68 mg/dL (Normal) Range: 0-149 Cholesterol, Total 160 mg/dL (Normal) Range: 100-199 :17 HgA1C , Office (11834) Comments: PATIENT NOT FASTINGPERFORMED BY: [facility] Qvkhny4348 [facility] [id number] Glycohemoglobin (GHb), Total 6.5 % (Normal) Comments: Diabetic Adult <9.0 Healthy Adult 3.9 - 7.3 (DCCT/NGSP) Current ADA guide lines recommend a treatment goal of <7.0% HgbA1c for diabetic patients, which corresponds to a <9.0% Glycohemoglobin result with this method. :36 METABOLIC PANEL, Comments: PATIENT NOT FASTINGPERFORMED BY: [facility] Ubfnbq1178 [facility] [id number] Information: [id number], [id number] COMPREHENSIVE (61427) ALT (SGPT) 20 [iU]/L (Normal) Range: 0-32 [...] CREATININE RATIO Comments: PATIENT NOT FASTINGPERFORMED BY: IPM FranceCo Ylpyhr5373 [facility] [id number] (53593) AND (59210) Microalb/Creat Ratio 7.0 {mg/g_creat} (Normal) Range: 0.0-30.0 Microalbumin, Urine 8.3 ug/mL (Normal) Range: 0.0-17.0 Creatinine, Urine 118.0 mg/dL (Normal) Range: 15.0-278.0 :36 TSH (66665) Comments: PATIENT NOT FASTINGPERFORMED BY: [facility] Pfbbig7551 [facility] [id number] TSH 0.516 {uIU/mL} (Normal) Range: 0.450-4.500 :36 LIPID PANEL (15186) Comments: PATIENT NOT FASTINGPERFORMED BY: [facility] Swshvi5174 [facility] [id number] LDL/HDL Ratio 1.0 {ratio_units} (Normal) Range: 0.0-3.2 LDL Cholesterol Calc 80 mg/dL (Normal) Range: 0-99 VLDL Cholesterol Cas 8 mg/dL (Normal) Range: 5-40 HDL Cholesterol 77 mg/dL (Normal) Comments: According to ATP-III Guidelines, HDL-C >59 mg/dL is considered anegative risk factor for CHD. Cholesterol, Total 165 mg/dL (Normal) Range: 100-199 Triglycerides 40 mg/dL (Normal) Range: 0-149 :09 HgA1C , Office (61510) HgA1C , Office 5.8 % (Normal) Range: 4.6 - 7.1 :22 Vitamin D Hydroxy (29253) Comments: PATIENT WAS FASTINGPERFORMED BY: LabCoSaint James HospitalJrvlna2728 [facility] [id number] Vitamin D, 25-Hydroxy 63.6 ng/mL (Normal) Range: 30.0-100.0 Comments: Vitamin D deficiency has been defined by the Tolstoy ofGrand Lake Joint Township District Memorial Hospitalcine and an Endocrine Society practice guideline as alevel of serum 25-OH vitamin D less than 20 ng/mL (1,2).The Endocrine Society went on to further define vitamin Dinsufficiency as a level between 21 and 29 ng/mL (2).1. IOM ([place] of Medicine). 2010. Dietary reference intakes for calcium and D. [place]: The National Academies Press.2. Candace MF, Ronak NC, Andrew OCONNELL, et al. Evaluation, treatment, and prevention of vitamin D deficiency: an Endocrine Society clinical practice guideline. JCEM. 2010; 96(7):1911-30. :22 CBC WITH MANUAL DIFF Comments: PATIENT WAS FASTINGPERFORMED BY: [facility] Hoqbpr6787 [facility] [id number] Information: [id number] (57550) Immature Grans (Abs) 0.0 {x10E3/uL} (Normal) Range: [...] COMPREHENSIVE Comments: PATIENT WAS FASTINGPERFORMED BY: LabCoSaint James HospitalJsxmyz1762 [facility] [id number] (51861) ALT (SGPT) 22 [iU]/L (Normal) Range: 0-32 [...] Glucose, Serum 93 mg/dL (Normal) Range: 65-99 54-Dnv-90321:22 LIPID PANEL (98019) Comments: PATIENT WAS FASTINGPERFORMED BY: LabCoSaint James HospitalLocumc0829 [facility] [id number] LDL/HDL Ratio 1.0 {ratio_units} (Normal) Range: 0.0-3.2 LDL Cholesterol Calc 63 mg/dL (Normal) Range: 0-99 VLDL Cholesterol Cas 16 mg/dL (Normal) Range: 5-40 Cholesterol, Total 141 mg/dL (Normal) Range: 100-199 HDL Cholesterol 62 mg/dL (Normal) Comments: According to ATP-III Guidelines, HDL-C >59 mg/dL is considered anegative risk factor for CHD. Triglycerides 81 mg/dL (Normal) Range: 0-149 92-Laz-17725:48 HgA1C , Office (30591) HgA1C , Office 5.6 % (Normal) Range: 4.6 - 7.1 07-Wnu-619218:00 DEXA BONE DENSITY STUDY (HP) Radiology Report [...] Victor M.D.August 09, 2012 at 11:04:35 AM [id number] Signed GP/GP If you are the referring physici an and would like to consult with theradiologist who provided this interpretation, please contact Marty Murphy at [phone]. If this radiologist is unavailable, youwill be directed to anot her radiologist to assist. If you are a patient with a question regarding this report, pleasecontactyour referring physician directly. Professional Interpretation Provided By: [employer], Phone , These documents contain legally protected [...] destructionofthese documents. Dictated on 08/09/12 1012 by Valente REDMOND,Joniranscribed on 08/09/12 1109 by ITS IMPORTSign by Blaine Victor MD on 1110 Sign by: Blaine Victor MD 61-Jtn-96205:18 CBC WITH MANUAL DIFF Comments: PATIENT WAS FASTINGPERFORMED BY: [facility]6370 [facility] [id number] Information: [id number] (90889) Immature Grans (Abs) 0.0 {x10E3/uL} (Normal) Range: [...] 3.77-5.28 WBC 11.6 {x10E3/uL} (Abnormal) Range: 4.0-10.5 22-Lim-49093:18 METABOLIC PANEL, COMPREHENSIVE Comments: PATIENT WAS FASTINGPERFORMED BY: LabCoSaint James HospitalWbjubb1479 [facility] [id number] (37169) ALT (SGPT) 21 [iU]/L (Normal) Range: 0-32 [...] Glucose, Serum 92 mg/dL (Normal) Range: 65-99 :18 LIPID PANEL (57858) Comments: PATIENT WAS FASTINGPERFORMED BY: Rad[facility] [id number] LDL/HDL Ratio 1.2 {ratio_units} (Normal) Range: 0.0-3.2 LDL Cholesterol Calc 78 mg/dL (Normal) Range: 0-99 VLDL Cholesterol Cas 13 mg/dL (Normal) Range: 5-40 HDL Cholesterol 65 mg/dL (Normal) Comments: According to ATP-III Guidelines, HDL-C >59 mg/dL is considered anegative risk factor for CHD. Cholesterol, Total 156 mg/dL (Normal) Range: 100-199 Triglycerides 66 mg/dL (Normal) Range: 0-149 :18 Vitamin D Hydroxy (24564) Comments: PATIENT WAS FASTINGPERFORMED BY: [employer]70 [facility] [id number] Vitamin D, 25-Hydroxy 38.5 ng/mL (Normal) Range: 30.0-100.0 Comments: Vitamin D deficiency has been defined by the Tolstoy ofMedicine and an Endocrine Society practice guideline as alevel of serum 25-OH vitamin D less than 20 ng/mL (1,2).The Endocrine Society went on to further define vitamin Dinsufficiency as a level between 21 and 29 ng/mL (2).1. IOM ([place] of Medicine). 2010. Dietary reference intakes for calcium and D. [place]: The National Academies Press.2. Candace WEISS, Ronak CARRASCO, Andrew OCONNELL, et al. Evaluation, treatment, and prevention of vitamin D deficiency: an Endocrine Society clinical practice guideline. JCEM. 2010; 96(7):3953-30. :40 HgA1C , Office (00426) HgA1C , Office 5.9 % (Normal) Range: 4.6 - 7.1 :55 CBC WITH MANUAL DIFF Comments: PATIENT WAS FASTINGPERFORMED BY: [facility]Prom[facility]6370 [facility] [id number] Information: [id number] (87734) Immature Grans (Abs) 0.0 {x10E3/uL} (Normal) Range: [...] 3.77-5.28 WBC 6.2 {x10E3/uL} (Normal) Range: 4.0-10.5 :55 METABOLIC PANEL, COMPREHENSIVE Comments: PATIENT WAS FASTINGPERFORMED BY: [employer]70 [facility] [id number] (35852) ALT (SGPT) 17 [iU]/L (Normal) Range: 0-32 [...] Glucose, Serum 101 mg/dL (Abnormal) Range: 65-99 :55 LIPID PANEL (47171) Comments: PATIENT WAS FASTINGPERFORMED BY: [employer]6370 [facility] [id number] LDL/HDL Ratio 1.6 {ratio_units} (Normal) Range: 0.0-3.2 LDL Cholesterol Calc 111 mg/dL (Abnormal) Range: 0-99 VLDL Cholesterol Cas 11 mg/dL (Normal) Range: 5-40 HDL Cholesterol 68 mg/dL (Normal) Comments: According to ATP-III Guidelines, HDL-C >59 mg/dL is considered anegative risk factor for CHD. Triglycerides 54 mg/dL (Normal) Range: 0-149 Cholesterol, Total 190 mg/dL (Normal) Range: 100-199 14-Lnw-357186:22 TSH (65703) Comments: PATIENT NOT FASTINGPERFORMED BY: LabCoSaint James HospitalAdsake0807 [facility] [id number] Information: [id number] TSH 2.500 {uIU/mL} (Normal) Range: 0.450-4.500 94-Mwk-881214:24 BILAT SCRN DIGITAL & CAD Radiology Report [...] sent to the patient by the [facility] within 30 days. Approximately 10% of breast cancers are not detected by mammography. Anormal mammogram should not delay biopsy of a clinically suspiciousabnormality. Signed:Brooks MarkMarch 05, 2012 at 2:48:08 PM [phone] Signed GP/GP If you are the referring physician and would like to consult with theradiologist who provided this interpretation, please co keenan Murphy M.D. at [phone]. If this radiologist is unavailable, youwill be directed to another radiologist to assist. If you are a patient with a question regarding this report, maribel avelar referring physician directly. Professional Interpretation Provided By: [employer], Phone , These documents contain legally protected [...] documents. Dictated on 03/05/12 1 425 by Joni Victor MDranscribed on 03/05/12 1452 by ITS IMPORTSign by Blaine Victor MD on 03/05/12 1453 Sign by: Blaine Victor MD 87-Rpg-85608:43 LIPID PANEL (58426) Comments: PATIENT WAS FASTINGPERFORMED BY: [employer]70 [address] [facility] HospitalNextPageCarolinaEast Medical Center [id number] LDL/HDL Ratio 2.0 {ratio_units} (Normal) Range: 0.0-3.2 LDL Cholesterol Calc 139 mg/dL (Abnormal) Range: 0-99 VLDL Cholesterol Cas 11 mg/dL (Normal) Range: 5-40 HDL Cholesterol 71 mg/dL (Normal) Comments: According to ATP-III Guidelines, HDL-C >59 mg/dL is considered anegative risk factor for CHD. Triglycerides 56 mg/dL (Normal) Range: 0-149 Cholesterol, Total 221 mg/dL (Abnormal) Range: 100-199 82-Kvv-90622:43 TSH (27537) Comments: PATIENT WAS FASTINGPERFORMED BY: Bubok6370 [employer] [facility] [id number] TSH 5.020 {uIU/mL} (Abnormal) Range: 0.450-4.500 :43 METABOLIC PANEL, Comments: PATIENT WAS FASTINGPERFORMED BY: [employer] Rmnnzd5259 [facility] [id number] Information: [id number] COMPREHENSIVE (07017) ALT (SGPT) 14 [iU]/L (Normal) Range: 0-32 [...] mg/dL (Normal) Range: 65-99 :32 LIPID PANEL (58588) Comments: PATIENT WAS FASTINGPERFORMED BY: IPM [facility]Prom[facility]6370 [facility] [id number] LDL/HDL Ratio 1.4 {ratio_units} (Normal) Range: 0.0-3.2 [...] 100-199 Comments: Please note reference interval change 38-Xnt-13846:32 METABOLIC PANEL, Comments: PATIENT WAS FASTINGPERFORMED BY: LabCoSaint James HospitalFgkdtd8214 [facility] [id number] Information: [id number] COMPREHENSIVE (34916) ALT (SGPT) 19 [iU]/L (Normal) Range: 0-40 [...] Glucose, Serum 96 mg/dL (Normal) Range: 65-99 97-Yro-93529:32 TSH (89098) Comments: PATIENT WAS FASTINGPERFORMED BY: [facility] Lxawxu6042 [facility] [id number] TSH 1.700 {uIU/mL} (Normal) Range: 0.450-4.500 51-Jfe-041230:30 PET/CT TUMOR,BASE-THIGH,INIT Radiology Report See Note (Normal) [...] abnormalities arenoted. Gordy Ahuja D.O. EST* (Diane et al, J Nucl Med 50: 122S, 2009) Signed:Gordy Ahuja M.D.September 28, 2011 at 9:58:07 AM EDTElectronically Signed RB/TOMA Professional Interpretation Provided By: [facility], , To consult with a radiologist regarding this report, please call our 10H7gdehpgy line @ Dictated on 09/26/11 1141 by Carlin Ahuja DO scribed on 09/29/11 1350 by ITS IMPORTSign by Gordy Ahuja DO on 09/29/11 1351 Sign by: Gordy Ahuja DO 01-Taj-84018:28 CHEST WITH CONTRAST Radiology Report See Note [...] Lor d PF/PF Professional Interpretation Provided By: [facility], , To consult with a radiologist regarding this report, please call our 93R6kmxkwu t line @ Dictated on 09/09/11 0951 by Adalid Rich MDTranscribed on 09/09/111801 by ITS IMPORTSign by Adalid Rich MD on 09/09/111802 Sign by: Adalid Rich MD 62-Dmf-46226:15 CBC WITH MANUAL DIFF Comments: PATIENT WAS FASTINGPERFORMED BY: [facility]Promedica [facility]6370 [facility] [id number] Information: [id number] (90316) Hematology Comments: Note: (Normal) Comments: Verified by [...] 3.80-5.10 WBC 8.0 {x10E3/uL} (Normal) Range: 4.0-10.5 12-Yxr-80084:15 METABOLIC PANEL, COMPREHENSIVE Comments: PATIENT WAS FASTINGPERFORMED BY: LabCoSaint James HospitalAdkiug2669 [facility] [id number] (98464) ALT (SGPT) 18 [iU]/L (Normal) Range: 0-40 [...] mg/dL (Normal) Range: 65-99 :15 LIPID PANEL (76768) Comments: PATIENT WAS FASTINGPERFORMED BY: LabCoSaint James HospitalYylefe7481 [facility] [id number] LDL/HDL Ratio 1.1 {ratio_units} (Normal) Range: 0.0-3.2 [...] Signed GP/GP Professional Interpretation Provid ed By: [facility], , To consult with a radiologist regarding this report, please call our [id number] line @ Dictated on 15/04 0942 by Valente REDMOND,Joniranscribed on 08/15/11 1148 by ITS IMPORTSign by Blaine Victor MD on 08/15/11 1149 Sign by: Blaine Victor MD 09-Gds-770670:19 TSH (91732) Comments: 4 weeks; PATIENT NOT FASTINGPERFORMED BY: LabCoSaint James HospitalOuzqau6283 [facility] [id number] Information: [id number] TSH 2.700 {uIU/mL} (Normal) Range: 0.450-4.500 40-Ppg-67352:23 MYOCARD PERF STRESS/REST MULT Radiology Report See [...] patient was injected with 31.8 mCi of Zo96qJsidwupkwb and subsequently stress SPECT Cardiolite nuclear imaging [...] 07/15/11 1902 Sign by: Luther Quintero MD 83-Cxh-969252:27 CHEST, PA AND LATERAL Radiology Report See Note (Normal) Comments: PROCEDURE: X-RAY CHEST REASON FOR EXAM: Female, 75 years old. Three-week history of chestpainand shortness of breath. TECHNIQUE: PA and lateral views of the chest. COMPARISON: Dwayne david is mad e with prior examination dated [...] radiologist regarding this report, please call our [id number] line @ [phone] Dictated on 07/13/11 1338 by Valente REDMOND,BenoitrieleTranscribed on 07/14/11 1316 by ITS IMPORTSign by Valente REDMOND,Blaine on 07/14/11 131 Sign by: Blaine Victor MD 01-Peh-28897:00 BRAIN W/WO CONTRAST Radiology Report See Note [...] radiologist regarding this report, please call our [id number] line @ Dictated on 07/13/11 0000 by Sanket REDMOND,OmarTrans cribed on 07/13/111739 by ITS IMPORTSign by Sanket REDMOND,Omar on 07/13/111740 Sign by: Sanket REDMOND,Omar 46-Esj-947059:47 CBCMD RBCM NORM C+C {NORMAL} (Normal) PE [...] NEGATIVE 0.06 - 0.59 AT RISK OF TX > OR = 0.60 SUGGEST TX :47 TSH 4.84 {uIU/mL} (Abnormal) Range: 0.358-3.74 :48 LIPID PANEL (01288) Comments: PATIENT WAS FASTINGPERFORMED BY: Engine EcologySaint James HospitalGgiqpy7723 [facility] [id number] LDL/HDL Ratio 1.1 {ratio_units} (Normal) Range: 0.0-3.2 [...] METABOLIC PANEL, Comments: PATIENT WAS FASTINGPERFORMED BY: ralali Gamrhw7241 [facility] [id number] Information: [id number] COMPREHENSIVE (98782) ALT (SGPT) 20 [iU]/L (Normal) Range: 0-40 [...] Glucose, Serum 95 mg/dL (Normal) Range: 65-99 29-Afj-580266:48 Vitamin D Hydroxy (78269) Comments: PATIENT WAS FASTINGPERFORMED BY: [facility] [id number] Vitamin D, 25-Hydroxy 46.9 ng/mL (Normal) Range: 30.0-100.0 Comments: Vitamin D deficiency has been defined by the [place] ofMedicine and an Endocrine Society practice guideline as alevel of serum 25-OH vitamin D less than 20 ng/mL (1,2).The Endocrine Society went on to further define vitamin Dinsufficiency as a level between 21 and 29 ng/mL (2).1. IOM ([place] of Medicine). 2010. Dietary reference intakes for calcium and D. [place]: The National Academies Press.2. Candace MF, Ronak NC, Andrew OCONNELL, et al. Evaluation, treatment, and prevention of vitamin D deficiency: an Endocrine Society clinical practice guideline. JCEM. 2010; 96(7): 1911-30. .Effective June 20, 2011, Vitamin D, 25 Hydroxy specimen requirements will change to serum only. 21-Tay-081617:02 METABOLIC PANEL, Comments: PATIENT NOT FASTINGPERFORMED BY: Bubok63TourjiveCarolinaEast [facility] Center [id number] Information: [id number] COMPREHENSIVE (41043) ALT (SGPT) 22 [iU]/L (Normal) Range: 0-40 [...] Glucose, Serum 105 mg/dL (Abnormal) Range: 65-99 01-Age-55846:00 BILAT SCRN DIGITAL & CAD Radiology Report [...] 03/02/11 1548 Sign by: Blaine Victor MD 80-Nof-380390:24 GALLBLADDER Radiology Report See Note (Normal) Comments: [...] size of the right kidney. The right hszwhgzepfpmll87.4 cm. Normal cici l cortex. The right cortex measures 1.4cm Thereisno demonstrated renal mass or cyst. There are no demonstrated renalcalculi. There is no hydronephrosis. There is no ascites. IMPRESSION:Findings i n keeping with choledocho lithiasis. Dictated on 03/01/11918 by Valente REDMOND,BenoitrieleTranscribed on 03/02/11921 by ITS IMPORTSign by Blaine Victor MD on 03/02/11921 Sign by: Blaine Victor MD 59-Pai-017593:14 HEPATITIS C ANTIBODY (84210) Comments: PATIENT NOT FASTINGPERFORMED BY: Bubok6370 [facility] [id number] HCV Ab <0.1 {s/co_ratio} (Normal) Range: 0.0-0.9 Comments: NegativeNot infected with HCV, unless recent infection is suspected or otherevidence exists to indicate HCV infection. 16-Dlz-566227:14 METABOLIC PANEL, Comments: PATIENT NOT FASTINGPERFORMED BY: Citizinvestorlin6370 [facility] [id number] Information: [id number] COMPREHENSIVE (81186) ALT (SGPT) 157 [iU]/L (Abnormal) Range: 0-40 [...] Microscopic Examination Comments: PATIENT WAS FASTINGPERFORMED BY: [facility]6370 [facility] [id number] Bacteria Few (Normal) Mucus Threads Present (Normal) Epithelial Cells (non renal) 0-10 {/hpf} (Normal) Range: 0 - 10 RBC 0-3 {/hpf} (Normal) Range: 0 - 3 WBC 0-5 {/hpf} (Normal) Range: 0 - 5 1-Rgm-291983:23 DEXA BONE DENSITY STUDY (HP) Radiology Report [...] loss of 6.8% and on density. IMPRESSION:The noram ent is considered osteoporotic, as outlined above, [...] Foundation [email or web address]://[email or web address].org Dictated on 02/22/11 1328 by Renée Victor MDribed on 02/23/11 1108 by ITS IMPORTSign by Blaine Victor MD on 02/23/11 1109 Sign by: Blaine Victor MD :47 TSH (12001) Comments: PATIENT WAS FASTINGPERFORMED BY: [employer] [facility] Yzecsz6930 [facility] [id number] TSH 2.270 {uIU/mL} (Normal) Range: 0.450-4.500 :47 URINALYSIS, W/ MICRO (74333) Comments: PATIENT WAS FASTINGPERFORMED BY: [employer] [facility] Sedbfm9990 [facility] [id number] Microscopic Examination See below: (Normal) Nitrite, Urine Negative (Normal) Urobilinogen,Semi-Qn 0.2 mg/dL (Normal) Range: 0.0-1.9 Bilirubin Negative (Normal) Occult Blood Negative (Normal) Ketones Negative (Normal) Glucose Negative (Normal) Protein Negative (Normal) WBC Esterase Trace (Abnormal) Appearance Clear (Normal) Urine-Color Yellow (Normal) pH 7.0 (Normal) Range: 5.0-7.5 Specific Ogden 1.021 (Normal) Range: 1.005-1.030 :47 CBC WITH MANUAL DIFF (41145) Comments: PATIENT WAS FASTINGPERFORMED BY: LabCoSaint James HospitalGmabxm2504 [facility] [id number] Immature Grans (Abs) 0.0 {x10E3/uL} (Normal) Range: [...] 3.80-5.10 WBC 6.8 {x10E3/uL} (Normal) Range: 4.0-10.5 :47 METABOLIC PANEL, COMPREHENSIVE Comments: PATIENT WAS FASTINGPERFORMED BY: LabCo Sdodhq5053 [facility] [id number] (78606) ALT (SGPT) 22 [iU]/L (Normal) Range: 0-40 [...] (Normal) Range: 65-99 :47 Vitamin D Hydroxy (66936) Comments: PATIENT WAS FASTINGPERFORMED BY: Bubok6370 [facility] [id number] Vitamin D, 25-Hydroxy 44.0 ng/mL (Normal) Range: 32.0-100.0 Comments: Effective March 07, 2011 Vitamin D, 25-Hydroxy reference intervals will be changing to 30-100. .Recent studies consider the lower li phuong of 32.0 ng/mL to be athreshold for optimal health.Ambrosio SAGASTUME. J Nutr. 2004;135(2):317-22. :47 LIPID PANEL (01564) Comments: PATIENT WAS FASTINGPERFORMED BY: Bubok6370 [facility] [id number] LDL Cholesterol Calc 99 mg/dL (Normal) Range: 0-99 LDL/HDL Ratio 1.5 {ratio_units} (Normal) Range: 0.0-3.2 HDL Cholesterol 65 mg/dL (Normal) Comments: According to ATP-III Guidelines, HDL-C >59 mg/dL is considered anegative risk factor for CHD. VLDL Cholesterol Cas 14 mg/dL (Normal) Range: 5-40 Triglycerides 70 mg/dL (Normal) Range: 0-149 Cholesterol, Total 178 mg/dL (Normal) Range: 100-199 68-Urb-405244:21 HEPATIC FUNCTION PANEL Comments: 2 weeks; PATIENT NOT FASTINGPERFORMED BY: Bubok6370 [facility] [id number] Information: [id number] (11179) ALT (SGPT) 21 [iU]/L (Normal) Range: 0-40 AST (SGOT) 20 [iU]/L (Normal) Range: 0-40 Albumin, Serum 4.2 g/dL (Normal) Range: 3.5-4.8 Alkaline Phosphatase, S 85 [iU]/L (Normal) Range: 25-165 Bilirubin, Direct 0.13 mg/dL (Normal) Range: 0.00-0.40 Bilirubin, Total 0.4 mg/dL (Normal) Range: 0.0-1.2 Protein, Total, Serum 6.8 g/dL (Normal) Range: 6.0-8.5 :06 Microscopic Examination Comments: PATIENT WAS FASTINGPERFORMED BY: IPM FrancePromed[facility]6370 [facility] [id number] Bacteria None seen (Normal) Mucus Threads Present (Normal) Epithelial Cells (non renal) 0-10 {/hpf} (Normal) Range: 0 - 10 RBC 0-3 {/hpf} (Normal) Range: 0 - 3 WBC 0-5 {/hpf} (Normal) Range: 0 - 5 56-Lel-388590:08 BILAT SCRN DIGITAL & CAD Radiology Report See Note (Normal) Comments: Exam Number: [id number] AMMOGRAPHY - BILATERAL SCREENING INDICATION:Routine annual screening [...] attaching a ResultCode to this exam. ADDENDUM: [id number] HPBI/MDS Reported By: OMAR QUIROGA M.D. :06 Vitamin D Hydroxy (85144) Comments: PATIENT WAS FASTINGPERFORMED BY: [facility] Manhaa9872 [facility] [id number] Vitamin D, 25-Hydroxy 47.0 ng/mL (Normal) Range: 32.0-100.0 Comments: Recent studies consider the lower limit of 32.0 ng/mL to be athreshold for optimal health.Ambrosio SAGASTUME. J Nutr. 2004;135(2):317-22. :06 URINALYSIS, W/ MICRO (41282) Comments: PATIENT WAS FASTINGPERFORMED BY: NUBIA IPM [facility]Prom[facility]6370 [facility] [id number] Bilirubin Negative (Normal) Microscopic Examination MICRON (Normal) Comments: Microscopic follows if indicated. Microscopic Examination See below: (Normal) Nitrite, Urine Negative (Normal) Urobilinogen,Semi-Qn 0.2 mg/dL (Normal) Range: 0.0-1.9 Glucose Negative (Normal) Ketones Negative (Normal) Occult Blood Negative (Normal) Protein Negative (Normal) Appearance Clear (Normal) pH 6.5 (Normal) Range: 5.0-7.5 Urine-Color Yellow (Normal) WBC Esterase Negative (Normal) Specific Ogden 1.024 (Normal) Range: 1.005-1.030 :06 LIPID PANEL (10833) Comments: PATIENT WAS FASTINGPERFORMED BY: BioIQSaint James HospitalMaxyha4707 [facility] [id number] LDL Cholesterol Calc 84 mg/dL (Normal) Range: [...] MANUAL DIFF Comments: PATIENT WAS FASTINGPERFORMED BY: [facility]6370 [facility] [id number] Information: [id number] (06034) Immature Grans (Abs) 0.0 {x10E3/uL} (Normal) Range: [...] 3.80-5.10 WBC 5.8 {x10E3/uL} (Normal) Range: 4.0-10.5 16-Aug-20109:06 METABOLIC PANEL, COMPREHENSIVE Comments: PATIENT WAS FASTINGPERFORMED BY: LabCoSaint James HospitalPxmrxl3670 [facility] [id number] (35490) ALT (SGPT) 118 [iU]/L (Abnormal) Range: 0-40 [...] 89 mg/dL (Normal) Range: 65-99 16-Aug-20109:06 TSH (18019) Comments: PATIENT WAS FASTINGPERFORMED BY: [employer] LabCoSaint James HospitalEltiit6798 [facility] [id number] TSH 2.530 {uIU/mL} (Normal) Range: 0.450-4.500 17-Feb-20108:07 HEPATIC FUNCTION PANEL Comments: PATIENT WAS FASTINGPERFORMED BY: [employer] LabCoSaint James HospitalGhista3146 [facility] [id number] Information: [id number] (40744) Alkaline Phosphatase, S 77 [iU]/L (Normal) Range: 25-165 ALT (SGPT) 23 [iU]/L (Normal) Range: 0-40 AST (SGOT) 19 [iU]/L (Normal) Range: 0-40 Bilirubin, Direct 0.10 mg/dL (Normal) Range: 0.00-0.40 Albumin, Serum 3.9 g/dL (Normal) Range: 3.5-4.8 Bilirubin, Total 0.3 mg/dL (Normal) Range: 0.0-1.2 Protein, Total, Serum 6.5 g/dL (Normal) Range: 6.0-8.5 3-Nov-43680:07 LIPID PANEL (91718) Comments: PATIENT WAS FASTINGPERFORMED BY: BioIQSaint James HospitalTqsdlv7444 [facility] [id number] LDL Cholesterol Calc 92 mg/dL (Normal) Range: [...] MANUAL DIFF Comments: PATIENT WAS FASTINGPERFORMED BY: [employer] Cibmuy3942 [facility] [id number] Information: [id number] (61400) Baso (Absolute) 0.1 {x10E3/uL} (Normal) Range: 0.0-0.2 [...] (Normal) Range: 4.0-10.5 :47 Vitamin D Hydroxy (96603) Comments: PATIENT WAS FASTINGPERFORMED BY: [employer] Gyrxxk6865 [facility] [id number] Vitamin D, 25-Hydroxy 53.5 ng/mL (Normal) Range: 32.0-100.0 Comments: Recent studies consider the lower limit of 32.0 ng/mL to be athreshold for optimal health.Ambrosio SAGASTUME. J Nutr. 2004;135(2):317-22. :47 TSH (56283) Comments: PATIENT WAS FASTINGPERFORMED BY: [employer]6370 [facility] [id number] TSH 2.280 {uIU/mL} (Normal) Range: 0.450-4.500 :47 LIPID PANEL (97463) Comments: PATIENT WAS FASTINGPERFORMED BY: [employer] Ntdvkw8435 [facility] [id number] LDL Cholesterol Calc 82 mg/dL (Normal) Range: 0-99 LDL/HDL Ratio 1.4 {ratio_units} (Normal) Range: 0.0-3.2 HDL Cholesterol 58 mg/dL (Normal) Comments: According to ATP-III Guidelines, HDL-C >59 mg/dL is considered anegative risk factor for CHD. Triglycerides 85 mg/dL (Normal) Range: 0-149 VLDL Cholesterol Cas 17 mg/dL (Normal) Range: 5-40 Cholesterol, Total 157 mg/dL (Normal) Range: 100-199 :47 METABOLIC PANEL, COMPREHENSIVE Comments: PATIENT WAS FASTINGPERFORMED BY: [employer] Adxvpa9384 [facility] [id number] (38959) Alkaline Phosphatase, S 97 [iU]/L (Normal) Range: [...] Glucose, Serum 95 mg/dL (Normal) Range: 65-99 3-Gho-938755:24 BILAT DIAG DIGITAL & CAD Radiology Report See Note (Normal) Comments: Exam Number: [id number] MAMMOGRAM, BILATERAL DIAGNOSTIC DIGITAL AND CAD HISTORYBilateral [...] mammograms werealso examined with computer-aided detection software (ImageAtlantia Search, [employer].). Reported By: OMAR QUIROGA M.D. 70-Ykj-561882:28 L/S SPINE,MIN 4 VIEWS (MT) Radiology Report See Note (Normal) Comments: Exam Number: [id number] LUMBOSACRAL SPINE SERIES HISTORYA 73-year-old woman with [...] facetarthritis. Atherosclerosis. Reported By: BEN MULLINS M.D. 27-Xuh-671651:14 METABOLIC PANEL, COMPREHENSIVE Comments: PATIENT NOT FASTINGPERFORMED BY: [facility] Hqzaxj5041 [facility] [id number] (40935) A/G Ratio 1.7 (Normal) Range: 1.1-2.5 Albumin, [...] Sodium, Serum 143 mmol/L (Normal) Range: 135-145 55-Fqk-898805:14 CBC WITH MANUAL DIFF (34960) Comments: PATIENT NOT FASTINGClinical Information: ADD [id number], [id number] PERFORMED BY: LabCoSaint James HospitalLaquuj7622 [facility] [id number] Baso (Absolute) 0.1 {x10E3/uL} (Normal) Range: 0.0-0.2 [...] Report See Note (Normal) Comments: Exam Number: [id number] MYOCARDIAL PERFUSION SCAN TECHNIQUEThe patient was injected [...] of 66%. Reported By: LUTHER QUINTERO M.D. 20-Aug-20089:49 [facility] Radiology Report See Note (Normal) Comments: Exam Number: [id number] MAMMOGRAM, BILATERAL SCREENING DIGITAL AND CAD HISTORYRoutine [...] mammograms werealso examined with computer-aided detection software (ImageMedia Machines.). Reported By: OMAR QUIROGA M.D. :49 DEXA BONE DENSITY STUDY () Radiology Report See Note (Normal) Comments: Exam Number: [id number] BONE DENSITOMETRY HISTORYOsteoporosis. TECHNIQUE Bone densitometry of [...] lumbar spine and both hips. Reported By: OMAR QUIROGA M.D. 1-May-93789:34 CBCD,SMEAR DIFF BAND 1 % (Normal) Range: [...] 47-70 WBC 6.7 K/mm3 (Normal) Range: 4.4-11.0 15-Aug-20087:34 COMP METABOLIC A/G 1.0 {RATIO} (Normal) Range: [...] {uIU/mL} (Normal) Range: 0.34-4.82 :34 VIT D,25 57704 41.4 ng/mL (Normal) Range: 32.0-100.0 Comments: Recent studies consider the lower limit of 32.0 ng/mL to attila threshold for optimal health.Ambrosio SAGASTUME. J Nutr. 2004;135(2):317-22.Performed At: CBLab[address] [id number] :45 CBC WITH MANUAL DIFF (48504) Comments: PATIENT WAS FASTINGClinical Information: [id number] PERFORMED BY: Lab[address] [id number] Baso (Absolute) 0.0 {x10E3/uL} (Normal) Range: 0.0-0.2 [...] PANEL, COMPREHENSIVE Comments: PATIENT WAS FASTINGPERFORMED BY: LabEric Ville 5630770 [facility] [id number] (06698) A/G Ratio 1.5 (Normal) Range: 1.1-2.5 Albumin, [...] 144 mmol/L (Normal) Range: 135-145 :45 TSH (76129) Comments: PATIENT WAS FASTINGPERFORMED BY: [facility] Xnvuuh5016 [facility] [id number] TSH 1.660 {uIU/mL} (Normal) Range: 0.450-4.500 :45 LIPID PANEL (78143) Comments: PATIENT WAS FASTINGPERFORMED BY: [facility] Emovhc9750 [facility] [id number] Cholesterol, Total 153 mg/dL (Normal) Range: 100-199 HDL Cholesterol 60 mg/dL (Normal) Comments: According to ATP-III Guidelines, HDL-C >59 mg/dL is considered anegative risk factor for CHD. LDL Cholesterol Calc 75 mg/dL (Normal) Range: 0-99 LDL/HDL Ratio 1.3 {ratio_units} (Normal) Range: 0.0-3.2 Triglycerides 90 mg/dL (Normal) Range: 0-149 VLDL Cholesterol Cas 18 mg/dL (Normal) Range: 5-40 Plan of Care Name Dates Details Instructions Former smoker : Eprescribed prescriptions (G8553) Indication: [...] Female Indication: Unspecified bacterial pneumonia Planned Observations Vitamin D Hydroxy (59336)Indication: Osteoporosis On: 78-Zyx-001678:44 Request CBC W/AUTO DIFF WBC (86183)Indication: Hypertension, benign On: 59-Igx-832767:44 Request METABOLIC PANEL, COMPREHENSIVE (66988)Indication: Hypertension, benign On: 96-Fcg-231718:44 Request LIPID PANEL (45990)Indication: Impaired Fasting Glucose On: 62-Dgw-785078:43 Request METABOLIC PANEL, COMPREHENSIVE (66992)Indication: Hypertension, benign On: 3-Rsr-980283:22 Request METABOLIC PANEL, COMPREHENSIVE (39883)Indication: Hypertension, benign On: 7-Xuj-075716:32 Request NuSwab STD (trich/BV/GC/glen W/ Herpes) (70594)Indication: Vaginal discharge On: 14-Yzu-250063:42 Request MICROALBUMIN: CREATININE RATIO (87406) AND (08029)Indication: Impaired Fasting Glucose On: 19-Vpl-400669:35 Request LIPID PANEL (85236)Indication: Other hyperlipidemia On: 55-Xvj-433824:35 Request CBC W/AUTO DIFF WBC (85620)Indication: Hypertension, benign On: 07-Ksq-226840:35 Request METABOLIC PANEL, COMPREHENSIVE (15711)Indication: Hypertension, benign On: 06-Yts-445909:35 Request TSH (84474)Indication: Acquired hypothyroidism On: 70-Fic-858533:35 Request Vitamin D Hydroxy (14065)Indication: Osteoporosis On: 3-Mww-477288:35 Request CBC W/AUTO DIFF WBC (43027)Indication: Colon Polyp On: 3-Jsu-596054:34 Request LIPID PANEL (10224)Indication: Other hyperlipidemia On: 0-Eqj-113425:34 Request METABOLIC PANEL, COMPREHENSIVE (53202)Indication: Hypertension, benign On: 6-Xqv-282969:34 Request CBC W/AUTO DIFF WBC (58128)Indication: Epistaxis On: 2-Jna-938026:36 Request TSH (30139)Indication: Acquired hypothyroidism On: 6-Wzk-882608:34 Request METABOLIC PANEL, COMPREHENSIVE (98193)Indication: Hypertension, benign On: :33 Request LIPID PANEL (23887)Indication: Other hyperlipidemia On: 5-Hdz-833449:33 Request CBC with auto diff (70985)Indication: Cramps, extremity On: 4-Vht-325544:31 Request METABOLIC PANEL, COMPREHENSIVE (86552)Indication: Cramps, extremity On: 6-Lny-767178:31 Request LIPID PANEL (70909)Indication: Other hyperlipidemia On: 96-Bhe-457296:26 Request CBC W/AUTO DIFF WBC (93471)Indication: Hypertension, benign On: 53-Msm-080968:26 Request METABOLIC PANEL, COMPREHENSIVE (85780)Indication: Impaired Fasting Glucose On: 04-Btv-214806:26 Request Hemoglobin Glyclated (HGB A1C) (46426)Indication: Impaired Fasting Glucose On: 39-Zjq-520920:26 Request TSH (03607)Indication: Hypertension, benign On: :06 Request ASSAY, TROPONIN, QUANTITATIVE (aka Troponin I) (77412)Indication: Chest pain On: 09-Zsa-533503:25 Request D-Dimer (61634)Indication: Chest pain On: 29-Cga-787308:25 Request Comments: stat TSH (95053)Indication: Chest pain On: 44-Aia-083970:25 Request CBC WITH MANUAL DIFF (60984)Indication: Chest pain On: 74-Jbo-454658:25 Request HEPATIC FUNCTION PANEL (52021)Indication: Other hyperlipidemia On: 51-Ihh-669055:24 Request Vitamin D Hydroxy (12988)Indication: Osteoporosis On: 69-Dlv-756875:23 Request Planned Encounters Medical; [facility] 3 Month FU - On: 15-May-2018 11:00 [facility] Fast DO, Meli A Fast DO, Meli A Planned Procedures Flu Vaccine (Quadrivalent) On: 06-Feb-2018 Intent 48173Vs: Fast DO, Meli A Comments: Lot #[id number]/30/2019Site-L dltd, IMDose prefilled syringegiven by: Gael reviewed and ABN signed Fast DO, Meli A Cartoid DopplerBy: Fast DO, On: 06-Nov-2017 Intent Meli A Fast DO, Meli A MRI OF RIGHT THIGH WITH On: 06-Nov-2017 Intent CONTRAST (45530)By: Rico LOMELI, Comments: growing soft tissue mass right thigh with pain Meli A Fast DO, Meli A ELECTROCARDIOGRAM, COMPLETE On: 17-Jul-2017 Intent (ECG) (87263)By: Rico LOMELI, Comments: ekg showed normal sinus rhythym, normal axis, no acute st/t wave changes irbb Meli A Fast DO, Meli A PNEUM VAC ADLT/IMUMNOSPR, On: 17-Jul-2017 Intent SBC/INTRM (28913)By: Rico LOMELI, Comments: pneumovax prefilled syringe injectionlot: [id number]: 12/27/18L DELT IMpt tolerated wellAD PERSONNEL 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 Meli A Fast DO, Meli A SCREENING DIGITAL On: 22-Mar-2017 Intent TOMOSYNTHESIS OF BREAST Comments: june (73000)By: Fast DO, Meli A Fast DO, Meli A Flu Vaccine (Quadrivalent) On: 16-Jan-2017 Intent 89213Zy: Fast DO, Meli A Comments: Lot:[id number]:07/2017Dose:0.5mLRoute:IMSite:L DltdGiven By:ROSEANNA signed Fast DO, Meli A Echo CompleteBy: Fast DO, On: 16-Dec-2016 Intent Meli A Fast DO, Meli A DEXA SCAN AXIAL SKELETON On: 16-Dec-2016 Intent (00580)By: Fast DO, Meli A Fast DO, Meli A Radiology - Lumbar SpineBy: On: 07-Sep-2016 Intent Fast DO, Meli A Fast DO, Meli A ELECTROCARDIOGRAM, COMPLETE On: 07-Jun-2016 Intent (ECG) (69244)By: Rico DO, Comments: ekg showed normal sinus rhythym, normal axis, no acute st/t wave changes sinus rsr no change Meli A Fast DO, Meli A Cartoid DopplerBy: Fast DO, On: 07-Jun-2016 Intent Meli A Fast DO, Meli A Comments: bilateral ELECTROCARDIOGRAM, COMPLETE On: 26-Feb-2016 Intent (ECG) (13568)By: Rico DO, Comments: no chargeekg- sinus rsr normal axis no acute st/t wave changes Meli A Fast DO, Meli A MAMMOGRAM, SCREENING, BOTH On: 26-Feb-2016 Intent BREAST (11624)By: Fast DO, Meli A Fast DO, Meli A Flu Vaccine (Quadrivalent) On: 05-Feb-2016 Intent 61808Mt: Fast DO, Meli A Comments: InfluenzaLot #Lot [id number]/30/Site-L dltd, IMDose prefilled syringeVIS and ABN signedgiven by:BOBBY canales Fast DO, Meli A Radiology - Chest- PA and On: 04-Dec-2015 Intent LatBy: Fast DO, Meli A Fast Comments: stat DO, Meli A Echo CompleteBy: Fast DO, On: 20-May-2015 Intent Meli A Fast DO, Meli A MAMMOGRAM, SCREENING, BOTH On: 25-Feb-2015 Intent BREAST (16529)By: Rico LOMELI, Comments: andry Edwarda Kwabena Fast DO, Meli A Cartoid DopplerBy: Fast DO, On: 25-Feb-2015 Intent Meli A Fast DO, Meli A Comments: andry DEXA SCAN AXIAL SKELETON On: 21-Oct-2014 Intent (87206)By: Fast DO, Meli A Fast DO, Meli A EKG (71848)By: Rico LOMELI, On: 18-Jun-2014 Intent Meli A Fast DO, Meli A Comments: ekg showed normal sinus rhythym, normal axis, no acute st/t wave changes Prevnar 13 (09042)By: Rico On: 31-Mar-2014 Intent DO, Meli A Fast DO, Meli A Comments: [id number] arm, IMAS Cartoid DopplerBy: Rico DO, On: 31-Mar-2014 Intent Meli A Fast DO, Meli A BILATERAL MAMMOGRAMS On: 31-Mar-2014 Intent (34604)By: Fast DO, Meli A Fast DO, Meli A Eprescribed prescriptions On: 24-Jul-2013 Intent (G8553)By: Fast DO, Meli A Fast DO, Meli A Echo CompleteBy: Fast DO, On: 18-Mar-2013 Intent Meli A Fast DO, Meli A Cartoid DopplerBy: Fast DO, On: 18-Mar-2013 Intent Meli A Fast DO, Meli A MAMMOGRAM, SCREENING, BOTH On: 18-Mar-2013 Intent BREASTS (91047)By: Fast DO, Meli A Fast DO, Meli A Eprescribed prescriptions On: 18-Mar-2013 Intent (G8553)By: Alisson Espinal FLU VAC, SPLIT, >3 YEARS, On: 08-Jan-2013 Intent INTRAMUSC (57399)By: Fabricio, Comments: lot [id number] 2014site/route L dennis, IMamt 0.5mlVIS and ABN signed when applicableChesoy, YUKI Francoise IMMUNIZ ADMNIN, 1 VAC, On: 08-Jan-2013 Intent SNGL/COMBO (45729)By: Francoise Regalado Echo CompleteBy: Fast DO, On: 12-Nov-2012 Intent Meli A Fast DO, Meli A DXA, BONE DENSITY, AXIAL On: 06-Aug-2012 Intent SKELETON (55622)By: Fast DO, Meli A Fast DO, Meli A PNEUM VAC ADLT/IMUMNOSPR, On: 07-May-2012 Intent SBC/INTRM ([id number])By: Rico LOMELI, Comments: Lot: [id number]: [id number]: 0.5mlRoute: IMSite: L deltoidwithout difficulty or c/o voicedGiven by: BOBBY Hernandez Meli A Fast DO, Meli A ADMINISTRATION OF On: 07-May-2012 Intent PNEUMOCOCCAL VACCINE ([id number])By: Fast DO, Meli A Fast DO, Meli A Eprescribed prescriptions On: 07-May-2012 Intent ([id number])By: Alisson Espinal Wax CurettesBy: [employer] 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, On: 08-Feb-2012 Intent Lilian Villatoro Ear Irrigation ([id number])By: On: 08-Feb-2012 Intent Robert CALVILLO Lilian Villatoro Breast Screening - On: 23-Jan-2012 Intent BilateralBy: Fast DO, Meli A Comments: mid nov Fast DO, Meli A FLU VAC, SPLIT, >3 YEARS, On: 23-Jan-2012 Intent INTRAMUSC ([id number])By: Kylie, Comments: Lot #[id number]-left deltoidgiven by: BOBBY Salazar ADMINISTRATION OF INFLUENZA On: 23-Jan-2012 Intent VIRUS VACCINE ([id number])By: Alisson Espinal PET ScanBy: Fast DO, Meli A On: 16-Sep-2011 Intent Fast DO, Meli A CT - ChestBy: Fast DO, Meli On: 22-Aug-2011 Intent A Fast DO, Meli A Comments: 2 weeks Eprescribed prescriptions On: 22-Aug-2011 Intent ([id number])By: Fast DO, Meli A Fast DO, Meli A Radiology - Chest- PA and On: 18-Jul-2011 Intent LatBy: Fast DO, Meli A Fast Comments: 1 month DO, Meli A Pulse Oximetry ([id number])By: On: 18-Jul-2011 Intent Alisson Espinal Comments: 92% Radiology - ChestBy: Fast DO, On: 15-Jul-2011 Intent Meli A Fast DO, Meli A Comments: PA & LAT Spirometry ([id number])By: Fast On: 11-Jul-2011 Intent DO, Meli A Fast DO, Meli A Comments: good effort and curve normal MRI - BrainBy: Fast DO, Meli On: 11-Jul-2011 Intent A Fast DO, Meli A Comments: attn cerebellum Cartoid DopplerBy: Fast DO, On: 11-Jul-2011 Intent Meli A Fast DO, Meli A EKG ([id number])By: Fast DO, On: 11-Jul-2011 Intent Meli A Fast DO, Meli A Comments: ekg showed normal sinus rhythym, normal axis, no acute st/t wave changes Nuclear Stress Test/Stress On: 11-Jul-2011 Intent SPECT/AdenosineBy: Fast DO, Meli A Fast DO, Meli A Radiology - Chest- PA and On: 11-Jul-2011 Intent LatBy: Fast DO, Meli A Fast DO, Meli A Pulse Oximetry ([id number])By: On: 11-Jul-2011 Intent Fast DO, Meli A Fast DO, Meli A Ultrasound - GallbladderBy: On: 28-Feb-2011 Intent Fast DO, Meli A Fast DO, Meli A TD Injection , IM ([id number])By: On: 28-Feb-2011 Intent Alisson Espinal Comments: 2007 IMMUNIZ ADMNIN, 1 VAC, On: 26-Jan-2011 Intent SNGL/COMBO ([id number])By: Masoud Comments: Lot #[id number]-[id number] arm, IMDose prefilledgiven by:BOBBY Heard LPN, Megan L FLU VAC, SPLIT, >3 YEARS, On: 26-Jan-2011 Intent INTRAMUSC ([id number])By: Izzy Meredith LPN MAMMOGRAM, SCREENING, BOTH On: 26-Nov-2010 Intent BREASTS ([id number])By: Rico DO, Comments: nov Meli A Fast DO, Meli A Echo CompleteBy: Fast DO, On: 26-Nov-2010 Intent Meli A Fast DO, Meli A Spirometry ([id number])By: On: 26-Nov-2010 Intent Alisson Espinal Comments: good effort and curve -mild obst DXA, BONE DENSITY, AXIAL On: 26-Nov-2010 Intent SKELETON ([id number])By: Rico DO, Comments: nov Meli A Fast DO, Meli A EKG ([id number])By: Kylie, On: 18-Aug-2010 Intent Alisson Comments: ekg showed normal sinus rhythym, normal axis, no acute st/t wave changes MAMMOGRAM, SCREENING, BOTH On: 22-Feb-2010 Intent BREASTS ([id number])By: Fast DO, Meli A Fast DO, Meli A IMMUNIZ ADMNIN, 1 VAC, On: 25-Jan-2010 Intent SNGL/COMBO ([id number])By: Masoud Comments: Lot #[id number]/11Site-L DLTD, IMDose 0.5mlgiven by:BOBBY HASSAN LPN, Megan L FLU VAC, SPLIT, >3 YEARS, On: 25-Jan-2010 Intent INTRAMUSC ([id number])By: Izzy Meredith LPN Echo CompleteBy: Fast DO, On: 21-Aug-2009 Intent Meli A Fast DO, Meli A Spirometry ([id number])By: On: 21-Aug-2009 Intent Alisson Espinal Comments: good effort an dcurve mild obst EKG ([id number])By: Kylie, On: 21-Aug-2009 Intent Alisson Comments: ekg- sinus anusha no acute st t wave changes Venous DopplerBy: Fast DO, On: 27-Feb-2009 Intent Meli A Fast DO, Meli A Comments: left leg- today if possible Flu Vaccine, Split IM On: 23-Jan-2009 Intent ([id number])By: Breezy ROSALES, Comments: Lot #[id number] deltoidgiven by:[facility] Radiology - Lumbar SpineBy: On: 12-Dec-2008 Intent Fast DO, Meli A Fast DO, Meli A Breast Diagnostic - On: 12-Dec-2008 Intent BilateralBy: Fast DO, Meli A Comments: feb Fast DO, Meli A EKG ([id number])By: Fast DO, On: 11-Aug-2008 Intent Meli A Fast DO, Meli A Comments: ekg- sinus rhyth m with nonspecific st t changes inf and lat -- poor r wave progression Renal Duplex ScanBy: Fast DO, On: 11-Aug-2008 Intent Meli A Fast DO, Meli A Nuclear Stress Test/Stress On: 11-Aug-2008 Intent SPECT/TreadmillBy: Fast DO, Meli A Fast DO, Meli A LE Arterial Exam with On: 11-Aug-2008 Intent TreadmillBy: Fast DO, Meli A Fast DO, Meli A Echo CompleteBy: Fast DO, On: 11-Aug-2008 Intent Meli A Fast DO, Meli A Cartoid DopplerBy: Fast DO, On: 11-Aug-2008 Intent Meli A Fast DO, Meli A MAMMOGRAM, SCREENING, BOTH On: 11-Aug-2008 Intent BREASTS ([id number])By: Fast DO, Comments: screenign Meli A Fast DO, Meli A DXA, BONE DENSITY, AXIAL On: 11-Aug-2008 Intent SKELETON ([id number])By: Fast DO, Meli A Fast DO, Meli A Instructions Name Dates Details Former smoker : How to access health [...] Indication: Hypertension, benign Encounters Office Visit On: 06-Feb-2018 10:56 Encounter Reason: [...] or put area rugs through house. The pat jesse has completed the following preventative measures: mammography (04/2016) and colonoscopy (within past 10 yrs, Dr. Tavares. Does not need anymore). The patient does have durable power of senior attorney and living will. The patient has noticed nothing from the geriatic depression scale. Other providers contributing to the patient's care are security police officer (Dr. Cruz), surgeon (Dr. Nicholas) and other: [...] didnt like but sugar better- going to [place] in couple weeeks- her breath ing has [...] has had xray hip twice- neg by [facility]- painwith walkingnot as bad sitting- hurts during [...] 3 (jus End: 24-Jun-2016 7:58 t joined [employer]) days per week. Sleeps on average 7 hours per night. Normal bowel and bladder habits. Safety measures include appropriate use of safety belts and home smoke detectors. There are no current emotional problems. Note for Physical exam: [facility]- had ct of chest and looks better- her chest feeling ok- and vaginal issue better - no chest pain--bp is good and weight is stable- did have gerd couple times not routinelyEncounter Diagnosis: [facility], Former smoker, BMI 30.0-30.9,adult, Aortic [...] providers contributing to the patient's care are security police officer (anthony) and other: (opthmologist Dr. Ludwig and Dr. Nicholas for Ortho)., [ADDITIONAL REASON] Follow up tests - Diagnostic tests include other (labs). Date: (02/18/16). , [ADDITIONAL REASON] Follow up for chronic medical issues - The patient feels well with minor complai nts (vaginal d/c again like in july- odorus), has good energy level and is sleeping [...] and has helped- not exercising routienly and ses sibdarlene in mar for ct of chest and [...] now- - still some sob- at home abril g 93-96- when she inside better than [...] sleeping well (with tra End: 31-Mar-2014 21:39 evie). Patient has been compliant with instructions. Current [...] medical issues: she is leaving on for tour with family- she got new hearing [...] The patient does have durable power of senior attorney and living will. The patient has noticed nothing from the geriatic depression scale. Other providers contributing to the patient's care are gastrologist (quinn), security police officer and other: (opthmologist). , [ADDITIONAL REASON] Well [...] issues: in january has another colonsocopy at [place]-- she will have area burned- had a tubulovillous adenoma with focal high grade dysplasia- last fall had issues with breahting and had bronchososcopy with biopsy- and couldnt get tube through bronchi so closed shut- had multiple biopsies no diagnosis- they were going to stent the bronchi- at [facility]- but they didnt have a stent- she was on augmentin and prednsione then and felt better - saw sibdarlene again around [facility] as had congestion and sob - went [...] her- she has fol lwoup with anthony maganab first- and bp is good and weight [...] resection- and do ing well- she saw uzhair no chemo or radiation- she found out doesnt lacy with morphine- still losing weight but didnt have appetite for a while but coming back now but trying to control it - bp re asonable- her ct is due in mar - that is already ordered in [place]- then every 6 mos for 3 years [...] [facility] october [address] Cosmo Garvin, [facility] surgeon.-she is not coughingor sob- got biopsy [...] and other (labs and bone dexa). Date: (11/9/11). Follow up visit with no current symptoms., [...] weight up 4 pounds- hasnt been to [facility] routinely because of above- no gerdEncounter Diagnosis: [...] exercise class- she is going to join [employer]- she is getting massage every 3 weeks [...] vitamins and low salt diet. The med ical issues the patient is following up for [...] she is ready to do more- bought [employer] to [employer] want tohave it checked- having more trouble [...] ormal/adequate. Exercises 2 (joint wellness- senoirs @ ) days per week. Sleeps on average [...] [facility] End: 31-Jul-2008 13:11 Payers MedicareL[facility]a/Supplement Viola BANUELOS; kwabena guarantor
--- OUTSIDE RECORDS SUMMARY | 2018-04-25 02:17 | XMS RPT_ITS ---
:1935 Author Organization OH[facility] Care Team Providers Name Role Phone Fast DO, Meli A Attending Unavailable Fast DO, Meli A Referring Unavailable Fast DO, Meli A Consulting Unavailable Fast, Meli Attending Unavailable Fast, Meli Referring Unavailable Fast, Meli Primary Care Unavailable Sibilia, Jamie Consulting Unavailable Fast, Meli Attending Unavailable Fast, Meli Primary Care Unavailable Fast, Meli Attending Unavailable Fast, Meli Primary Care Unavailable Fast, Meli Attending Unavailable Fast, Meli Referring Unavailable Fast, Meli Primary Care Unavailable Fast, Meli Primary Care Unavailable Ungur, Remus Attending Unavailable Fast, Meli Attending Unavailable Fast, Meli Referring Unavailable Fast, Meli Primary Care Unavailable PROBLEMS PROBLEMS DATE TYPE CONDITION / CODE ATTENDING STATUS SOURCE 02/27/2017 Unknown [employer] Fast, Meli Active [place] [facility] PED/ANML * DO Repository NOT USE * / V70.5(ICD-10) 06/19/2017 Unknown Z12.31 - Fast, Meli Active [place] [facility] for [facility] mammogram for Repository malignant neoplasm of breast / Z12.31(ICD-10) PROCEDURES PROCEDURES No Procedure Records FoundRESULTS RESULTS CTA CHEST W/WO Observed: 03/16/2018 Status: F Source: [place] CONTRAST 11:58 AM [facility] Imaging Services [address] [place] [address] CTA Chest W/WO Contrast MR#: [id number] Acct: [id number] Name: MYRNA BA Rep #: [id number] : 1935 F 82 From: Blaine Victor MD PCP: Meli Gómez DO Status: REG CLI Study: CTA Chest W/WO Contrast Date of Exam: 03/16/18 Exam# [id number] Ordering Dr: Meli Gómez DO STUDY: CTA CHEST REASON FOR EXAM: Female, 82 years old. Elevated d-dimer. History of lung cancer. RADIATION DOSAGE (If Supplied By Facility): CTDIvol = ( 19.57 ) mGy, DLP = ( 519.19 ) mGycm TECHNIQUE: The examination was performed with the intravenous administration of 100 ml of Isovue 370 contrast material. Post-processing of the angiographic images was performed, with multiplanar reformation and 3D reconstruction. Individualized dose optimization techniques were used for this CT. COMPARISON: Comparison is made with prior study dated April 03, 2017. FINDINGS: Normal enhancement of the main pulmonary artery and right and left pulmonary arteries. Normal enhancement of the bilateral peripheral pulmonary arteries. There is no demonstrated pulmonary embolism. There is atherosclerotic calcification of the aortic arch with tortuosity. There is no demonstrated aortic dissection. There are calcifications of the coronary arteries. There are visualized mediastinal lymph nodes, which are within normal size limits, and with normal morphology. Small left hilar lymph node. Normal visualized trachea and bronchi. The patient is status post partial right upper lobectomy. Stable elevation of the right hemidiaphragm. Emphysematous changes with bullous formation worse in the right upper lobe. Subpleural blebs are also seen in the lower lobes. There now is evidence of a 1.2 cm x 0.8 cm x 0.9 cm spiculated nodule in the right upper lobe as seen on axial image #140 and coronal image #143. Normal pleura. Normal chest wall structures. There are degenerative changes of thoracic spine. There is a 2.3 cm x 3.1 cm cyst in the anterior aspect of the right kidney. CT/CTA Chest W/WO Contrast IMPRESSION: There is no evidence of pulmonary embolism. Emphysematous changes worse in the upper lobes. 1.2 cm x 0.8 cm x 0.9 cm cystic nodule in the right upper lobe. Follow-up is recommended. Electronically Signed: Blaine Victor MD at 12:44 EST Tel [phone], Service support , CC: Meli Gómez DO Office Clin Asst: Signed CBC W/DIFF, AUTOMATED Collected: 03/16/2018 Status: F Source: [place] 10:44 AM [facility] TYPE CODE TESTS RESULT OUT OF RANGE REFERENCE UNITS LAB L100.1000 4.4-11.0 K/mm3 Normal WBC 8.2 LAB L100.1200 4.2-5.4 M/mm3 Normal RBC 4.66 LAB L100.1300 12.0-15.0 g/dl Normal HGB 14.4 LAB L100.1400 37-47 % Normal HCT 43.4 LAB L100.1500 81-99 fL Normal MCV 93.1 LAB L100.1600 27.0-32.0 pg Normal MCH 30.9 LAB L100.1700 32-36 g/gl Normal MCHC 33.2 LAB L100.1810 11.6-14.6 % Normal RDW CV 14.6 LAB L100.1820 35.1-43.9 fl High RDW SD 48.2 LAB L100.1900 150-450 K/mm3 Normal PLT 184 LAB L100.2000 6.2-12.0 fl Normal MPV 11.8 LAB L100.2100 47-70 % Normal NEUT% 69.2 LAB L100.2200 19-41 % Low LY% 13.1 LAB L100.2300 0-10 % Normal MONO% 8.9 LAB L100.2400 0-5 % High EO% 7.7 LAB L100.2500 0-1 % Normal BASO% 0.7 LAB L100.2550 0.0-0.9 % Normal IM GRAN % 0.400 Result Comment: IG% - Immature Granulocytes (promyelocytes, myelocytes and metamyelocytes) > 1% indicates that a LEFT SHIFT is Present. LAB L100.2620 2.0-7.7 X10 3/uL Normal Absolute Neut 5.7 LAB L100.2720 0.83-4.51 X10 3/ul Normal Absolute Lymph 1.08 Performed By: #### L100.0100 #### [facility] [address] [place], [place], [address] D-DIMER QUANTITATIVE Collected: 03/16/2018 Status: F Source: [place] (DVT/PE) 10:44 AM [facility] TYPE CODE TESTS RESULT OUT OF RANGE REFERENCE UNITS LAB L300.8000 0.27-0.49 FEU/ug/m High alert D-DIMER 2.06 QUANT Result Comment: D-Dimer ELEVATED (>0.49): Additional studies and clinical assessments are indicated to conclude diagnosis of: Deep Vein Thrombosis (DVT) or Pulmonary Embolism (PE) CRITICAL VALUE VERIFIED. CALLED TO MILAN ROSALES 03/16/18 1101 Carmelo Ha. RESULTS READ BACK BY SAME. Performed By: #### L300.8000 #### [facility] [address] [place], [place], [address] COMPREHENSIVE METABOLIC Collected: 03/16/2018 Status: F Source: [place] PROFIL 10:44 AM [facility] TYPE CODE TESTS RESULT OUT OF RANGE REFERENCE UNITS LAB L501.0100 74-106 mg/dL Normal GLU 100 Result Comment: Fasting Glucose result from 100 to 125 mg/dL suggests IMPAIRED HOMEOSTASIS per A.D.A. criteria. Please note revised GLUCOSE reference range effective 2017. LAB L501.1000 7-18 mg/dL Normal BUN 13 LAB L501.1100 0.55-1.02 mg/dL Normal CREAT,SERUM 0.74 Result Comment: The validity of the calculated GFR AND GFRAA in patients over 70 years has not been determined. Clinical correlation is essential. LAB L501.1110 >60 mL/min Normal EST GFR 79 Result Comment: Non- GFR Calc LAB L501.1115 >60 mL/min Normal EST GFR - AA 96 Result Comment: GFR Calc LAB L501.1300 10-20 RATIO Normal BUN/CRE 17.5 LAB L501.1500 6.4-8.2 g/dL T Normal PROT 6.8 LAB L501.1800 3.2-5.0 g/dL Normal ALB 3.4 LAB L501.1950 2.2-4.2 g/dL Normal GLOB 3.4 LAB L501.2000 0.9-2.4 RATIO Normal A/G 1.0 LAB L501.2200 8.5-10.1 mg/dL CA Normal 9.1 LAB L501.4100 15-37 U/L Normal AST 18 LAB L501.4305 45-117 U/L Normal ALK P 101 LAB L501.4405 13-56 U/L Normal ALT 23 LAB L501.4600 0.20-1.00 mg/dL T Normal BILI 0.70 LAB L501.5300 136-145 mmol/L NA Normal 141 LAB L501.5600 3.5-5.1 mmol/L K Normal 4.0 LAB L501.5900 98-107 mmol/L CL Normal 107 LAB L501.6100 21.0-32.0 mmol/L Normal CO2 25.0 LAB L501.6200 5-15 Normal GAP 9 Performed By: #### L500.4050 #### [facility] [address] [place], [place], [address] D-DIMER QUANTITATIVE Collected: 03/16/2018 Status: F Source: [place] (DVT/PE) 10:44 AM [facility] TYPE CODE TESTS RESULT OUT OF RANGE REFERENCE UNITS LAB L300.8000 0.27-0.49 FEU/ug/m High alert D-DIMER 2.06 QUANT Result Comment: D-Dimer ELEVATED (>0.49): Additional studies and clinical assessments are indicated to conclude diagnosis of: Deep Vein Thrombosis (DVT) or Pulmonary Embolism (PE) CRITICAL VALUE VERIFIED. CALLED TO MILAN ROSALES 03/16/18 Teena1 Carmelo Ha. RESULTS READ BACK BY SAME. Performed By: #### L300.8000 #### [facility] [address] [place], [place], [address] COMPREHENSIVE METABOLIC Collected: 03/16/2018 Status: F Source: [place] 10:44 AM [facility] TYPE CODE TESTS RESULT OUT OF RANGE REFERENCE UNITS LAB L501.0100 74-106 mg/dL Normal GLU 100 Result Comment: Fasting Glucose result from 100 to 125 mg/dL suggests IMPAIRED HOMEOSTASIS per A.D.A. criteria. Please note revised GLUCOSE reference range effective 2017. LAB L501.1000 7-18 mg/dL Normal BUN 13 LAB L501.1100 0.55-1.02 mg/dL Normal CREAT,SERUM 0.74 Result Comment: The validity of the calculated GFR AND GFRAA in patients over 70 years has not been determined. Clinical correlation is essential. LAB L501.1110 >60 mL/min Normal EST GFR 79 Result Comment: Non- GFR Calc LAB L501.1115 >60 mL/min Normal EST GFR - AA 96 Result Comment: GFR Calc LAB L501.1300 10-20 RATIO Normal BUN/CRE 17.5 LAB L501.1500 6.4-8.2 g/dL T Normal PROT 6.8 LAB L501.1800 3.2-5.0 g/dL Normal ALB 3.4 LAB L501.1950 2.2-4.2 g/dL Normal GLOB 3.4 LAB L501.2000 0.9-2.4 RATIO Normal A/G 1.0 LAB L501.2200 8.5-10.1 mg/dL CA Normal 9.1 LAB L501.4100 15-37 U/L Normal AST 18 LAB L501.4305 45-117 U/L Normal ALK P 101 LAB L501.4405 13-56 U/L Normal ALT 23 LAB L501.4600 0.20-1.00 mg/dL T Normal BILI 0.70 LAB L501.5300 136-145 mmol/L NA Normal 141 LAB L501.5600 3.5-5.1 mmol/L K Normal 4.0 LAB L501.5900 98-107 mmol/L CL Normal 107 LAB L501.6100 21.0-32.0 mmol/L Normal CO2 25.0 LAB L501.6200 5-15 Normal GAP 9 Performed By: #### L500.4050 #### [facility] [place], [address] CBC W/DIFF, AUTOMATED Collected: 03/16/2018 Status: F Source: [place] 10:44 AM [facility] TYPE CODE TESTS RESULT OUT OF RANGE REFERENCE UNITS LAB L100.1000 4.4-11.0 K/mm3 Normal WBC 8.2 LAB L100.1200 4.2-5.4 M/mm3 Normal RBC 4.66 LAB L100.1300 12.0-15.0 g/dl Normal HGB 14.4 LAB L100.1400 37-47 % Normal HCT 43.4 LAB L100.1500 81-99 fL Normal MCV 93.1 LAB L100.1600 27.0-32.0 pg Normal MCH 30.9 LAB L100.1700 32-36 g/gl Normal MCHC 33.2 LAB L100.1810 11.6-14.6 % Normal RDW CV 14.6 LAB L100.1820 35.1-43.9 fl High RDW SD 48.2 LAB L100.1900 150-450 K/mm3 Normal PLT 184 LAB L100.2000 6.2-12.0 fl Normal MPV 11.8 LAB L100.2100 47-70 % Normal NEUT% 69.2 LAB L100.2200 19-41 % Low LY% 13.1 LAB L100.2300 0-10 % Normal MONO% 8.9 LAB L100.2400 0-5 % High EO% 7.7 LAB L100.2500 0-1 % Normal BASO% 0.7 LAB L100.2550 0.0-0.9 % Normal IM GRAN % 0.400 Result Comment: IG% - Immature Granulocytes (promyelocytes, myelocytes and metamyelocytes) > 1% indicates that a LEFT SHIFT is Present. LAB L100.2620 2.0-7.7 X10 3/uL Normal Absolute Neut 5.7 LAB L100.2720 0.83-4.51 X10 3/ul Normal Absolute Lymph 1.08 Performed By: #### L100.0100 #### [facility] [address] [place], [address] HUMERUS MIN 2 VIEWS Observed: 03/16/2018 Status: F Source: [place] 10:24 AM [facility] Imaging Services [address] [place] [address] Humerus min 2 Views MR#: [id number] Acct: [id number] Name: MYRNA BA Rep #: [id number] : 1935 F 82 From: Blaine Victor MD PCP: Meli Gómez DO Status: REG CLI Study: Humerus min 2 Views Date of Exam: 03/16/18 Exam# [id number] Ordering Dr: Meli Gómez DO STUDY: X-RAY [...] Blaine Victor MD at 10:55 EST Tel [phone], Service support , CC: Meli Gómez DO Office Clin Asst: Signed HUMERUS MIN 2 VIEWS Observed: 03/16/2018 Status: F Source: [place] 10:24 AM [facility] Imaging Services [address] [place] [address] Humerus min 2 Views MR#: [id number] Acct: [id number] Name: MYRNA BA Rep #: [id number] : 1935 F 82 From: Blaine Victor MD PCP: Meli Gómez DO Status: REG CLI Study: Humerus min 2 Views Date of Exam: 03/16/18 Exam# [id number] Ordering Dr: Meli Gómez DO STUDY: X-RAY [...] Blaine Victor MD at 10:55 EST Tel [phone], Service support , CC: Meli Gómez DO Office Clin Asst: Signed CHEST PA AND LATERAL Observed: 03/16/2018 Status: F Source: [place] 10:22 AM [facility] Imaging Services [address] [place] [address] Chest PA and Lateral MR#: [id number] Acct: [id number] Name: MYRNA BA Rep #: [id number] : 1935 F 82 From: Blaine Victor MD PCP: Meli Gómez DO Status: REG CLI Study: Chest PA and Lateral Date of Exam: 03/16/18 Exam# [id number] Ordering Dr: Meli Gómez DO STUDY: X-RAY [...] basilar scarring and pleural scarring. Stable mild degree of increased linear markings in the right middle lobe. There is no demonstrated pleural abnormality. Normal size heart. Normal mediastinum and jolynn. Normal visualized pulmonary arteries. There is atherosclerotic calcification of the aortic arch with tortuosity. There is demineralization of the osseous structures. Normal visualized ribs, clavicles, and shoulders. There is no demonstrated abnormality of the visualized soft tissue structures of the upper abdomen. RAD/Chest PA and Lateral IMPRESSION: Stable pleural parenchymal changes at the right lung base. Electronically Signed: Blaine Victor MD at 10:57 EST Tel [phone], Service support , CC: Meli Gómez DO Office Clin Asst: Signed CHEST PA AND LATERAL Observed: 03/16/2018 Status: F Source: [place] 10:22 AM [facility] Imaging Services [address] [place] [address] Chest PA and Lateral MR#: [id number] Acct: [id number] Name: MYRNA BA Rep #: [id number] : 1935 F 82 From: Blaine Victor MD PCP: Meli Gómez DO Status: REG CLI Study: Chest PA and Lateral Date of Exam: 03/16/18 Exam# [id number] Ordering Dr: Meli Gómez DO STUDY: X-RAY [...] basilar scarring and pleural scarring. Stable mild degree of increased linear markings in the right middle lobe. There is no demonstrated pleural abnormality. Normal size heart. Normal mediastinum and jolynn. Normal visualized pulmonary arteries. There is atherosclerotic calcification of the aortic arch with tortuosity. There is demineralization of the osseous structures. Normal visualized ribs, clavicles, and shoulders. There is no demonstrated abnormality of the visualized soft tissue structures of the upper abdomen. RAD/Chest PA and Lateral IMPRESSION: Stable pleural parenchymal changes at the right lung base. Electronically Signed: Blaine Victor MD at 10:57 EST Tel [phone], Service support , CC: Meli Gómez DO Office Clin Asst: Signed DISCHARGE INSTRUCTION Observed: 03/13/2018 Status: F Source: [place] 11:55 AM [facility] Medical Records Department [address] [place] [address] Discharge Instruction 03/13/18 1153 MR#: [id number] Acct: [id number] Name: MYRNA BA Rep #: [id number] : 1935 82 From: Jenna Faust DO PCP: Meli Gómez DO Status: REG ER ED Disposition - Plan for ED Patient: Chief Complaint: Fall Instructions: ED Mechanical Fall, ED Head Injury Closed, ED Sprain Strain Neck, ED Contusion Upper Ext, ED Contusion Shoulder Prescriptions: Hydrocodone Bitart/Apap 5-325 [[place] 5MG-325MG] 1 tab PO Q4H PRN PRN 2 Days #10 tab PRN Reason: Pain Referrals: Meli Gómez DO [Primary Care Provider] - 3-5 Days What to do if you have Problems For any increased pain, shortness of breath, bleeding, nausea or vomiting, chest pain, or any unexpected problems, contact your Primary Care Provider. Call [facility] ([phone]) or report to the closest Emergency Room. Call 911 if necessary. 03/13/18 1152 <Electronically signed by Jenna Faust DO> Date Jenna Faust DO Cosigner Signature (If Indicated): Date CC: Meli Gómez DO EMERGENCY DEPARTMENT Observed: 03/13/2018 Status: F Source: [place] SUMMARY 11:53 AM [facility] Medical Records Department [address] [place] [address] Emergency Department Summary 03/13/18 1150 MR#: [id number] Acct: [id number] Name: MYRNA BA Rep #: [id number] : 1935 82 From: Jenna Faust DO PCP: Meli Gómez DO Status: REG ER - ER Visit Summary Date of Service: 03/13/18 Chief Complaint: [Fall and head injury] History of Present Illness: The patient is a 82 F [presents to the emergency department after sustaining a fall this morning. Patient states she went out to the mailbox and she slipped on the ice falling backwards and striking her head on the ground. Patient is not sure if she passed out but the neighbor who saw her fall apparently and noted that she may have been unconscious however by the time that he got to where she was awake. Patient was [...] that initially her whole body felt numb and tingly initially. Patient also having some discomfort in her left shoulder.] Physical Examination: [HEENT-PERRLA, EOMI. Cranial nerves II through XII grossly intact. TMs clear. Mucous membranes moist. No adenopathy. Mild diffuse tenderness over the C-spine. He has a contusion to the posterior occiput with hematoma noted. There is contusion to the skin but no distinct laceration. No bony step-offs. Cardiovascular-regular rate and rhythm without murmur or ectopy Lungs-clear to auscultation, chest wall stable without crepitus or subcu emphysema Abdomen-normoactive bowel sounds, soft, nontender, no rebound or rigidity, no peritoneal signs. Extremities-intact 4, normal range of motion, normal pulses, atraumatic]. Left shoulder-patient has some tenderness diffusely about the glenohumeral joint. There is no deformity. She is nervously intact distally. Test Results: [CT scan of the brain without contrast showed chronic involutional changes and a hematoma to the scalp. CT C-spine showed chronic changes however no fractures. X-rays of the left shoulder showed no fractures.] Emergency Department Course and Treatment: [Was given Adacel in the emergency department] Treatment Plan: [Patient had a wound to the scalp was cleansed] Disposition: [Discharged home stable condition] Impression: [Closed head injury Cervical strain Left shoulder strain] This note was generated with [employer] software. It may contain incorrect words, spelling, and punctuation that were not noted in review of the chart prior to signing ED Disposition - Plan for ED Patient: Chief Complaint: Fall Referrals: Meli Gómez DO [Primary Care Provider] - What to do if you have Problems For any increased pain, shortness of breath, bleeding, nausea or vomiting, chest pain, or any unexpected problems, contact your Primary Care Provider. Call [facility] ([phone]) or report to the closest Emergency Room. Call 911 if necessary. 03/13/18 1153 <Electronically signed by Jenna Faust DO> Date Jenna Faust DO Cosigner Signature (If Indicated): Date CC: Meli Gómez DO BRAIN/HEAD WITHOUT Observed: 03/13/2018 Status: F Source: [place] CONTRAST 9:35 AM [facility] Imaging Services [address] [place], [place] [address] [address] Brain/Head without Contrast MR#: [id number] Acct: [id number] Name: MYRNA BA Rep #: [id number] : 1935 F 82 From: Blaine Victor MD PCP: Meli Gómez DO Status: PRE ER Study: Brain/Head without Contrast Date of Exam: 03/13/18 Exam# [id number] Ordering Dr: Jenna Faust DO STUDY: CT BRAIN WITHOUT CONTRAST REASON FOR EXAM: Female, 82 years old. Head injury due to a fall. RADIATION DOSAGE (If Supplied By Facility): CTDIvol = ( 44.99 ) mGy, DLP = ( 779.24 ) mGycm TECHNIQUE: Transaxial CT imaging of the brain was performed without administration of intravenous contrast material. Individualized dose optimization techniques were used for this CT. COMPARISON: None. FINDINGS: Small sclerotic hematoma overlying the posterior left parietal occipital bones. Normal calvarium. There is mild cerebral atrophy with widening of the extra- axial spaces and ventricular dilatation. There are areas of decreased attenuation within the white matter tracts of the supratentorial brain, consistent with microvascular disease changes. 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 Normal basal ganglia and thalami. Normal brainstem. Normal cerebellum. There is no intracranial hemorrhage. There are no findings of an acute ischemic infarction. Atherosclerotic calcification of the vertebral arteries and cavernous portions of the internal carotid arteries bilaterally. Normal visualized paranasal sinuses. CT/Brain/Head without Contrast IMPRESSION: Chronic involutional changes of the brain. Scalp hematoma overlying the posterior right parietal occipital bones. Electronically Signed: Blaine Victor MD at 10:15 EST Tel [phone], Service support , CC: Meli Gómez DO; Jenna Faust DO Office Clin Asst: Signed SPINE CERVICAL Observed: 03/13/2018 Status: F Source: [place] WITHOUT CONTRAS 9:35 AM [facility] Imaging Services [address] [place] [address] Spine Cervical without Contras MR#: [id number] Acct: [id number] Name: MYRNA BA Rep #: [id number] : 1935 F 82 From: Blaine Victor MD PCP: Meli Gómez DO Status: PRE ER Study: Spine Cervical without Contras Date of Exam: 03/13/18 Exam# [id number] Ordering Dr: Jenna Faust DO STUDY: CT CERVICAL SPINE WITHOUT CONTRAST REASON FOR EXAM: Female, 82 years old. Head trauma due to a fall. RADIATION DOSAGE (If Supplied By Facility): CTDIvol = ( 25.57 ) mGy, DLP = ( 576.30 ) mGycm TECHNIQUE: High resolution transaxial imaging was performed without contrast material. Sagittal and coronal images were reconstructed. Individualized dose optimization techniques were used for this CT. COMPARISON: None FINDINGS: Scalp hematoma overlying the right posterior parietal occipital bone. Normal craniovertebral junction. There are degenerative changes of the anterior atlantoaxial articulation. Normal odontoid process. There is straightening of the normal cervical lordosis. Normal vertebral bodies and posterior osseous elements. C2-3: Minimal anterior listhesis of C2 on C3. Facet joint [...] Moderate degree of bilateral neural foraminal stenosis. C6-7: Moderate degree of disc space narrowing. Spondylosis. Uncovertebral arthrosis. Bilateral neural foraminal stenosis. Atherosclerotic plaque formation of the carotid bifurcations. Scarring in the right lung apex. CT/Spine Cervical without Contras IMPRESSION: Multilevel degenerative changes, as described above. Electronically Signed: Blaine Victor MD at 10:19 EST Tel [phone], Service support , CC: Meli Gómez DO; Jenna Faust DO Office Clin Asst: Signed SHOULDER MIN 2 VIEWS Observed: 03/13/2018 Status: F Source: [place] 9:35 AM [facility] Imaging Services [address] [place] [address] Shoulder min 2 Views MR#: [id number] Acct: [id number] Name: MYRNA BA Rep #: [id number] : 1935 F 82 From: Blaine Victor MD PCP: Meli Gómez DO Status: REG ER Study: Shoulder min 2 Views Date of Exam: 03/13/18 Exam# [id number] Ordering Dr: Jenna Faust DO STUDY: X-RAY - LEFT SHOULDER REASON FOR EXAM: Female, 82 years old. Pain following a fall. TECHNIQUE: 2 view(s) of the shoulder. COMPARISON: None. FINDINGS: Normal glenohumeral articulation. Normal acromioclavicular joint. Normal acromion. Normal humeral head and visualized proximal humerus. The soft tissue structures are unremarkable. Normal visualized pulmonary apex. RAD/Shoulder min 2 Views IMPRESSION: Normal x-ray examination of the shoulder. Electronically Signed: Blaine Victor MD at 10:46 EST Tel [phone], Service support , CC: Meli Gómez DO; Jenna Faust DO Office Clin Asst: Signed CAROTID DUPLEX Observed: 11/16/2017 Status: F Source: [place] ULTRASOUND 6:11 PM [facility] Cardiovascular Services [address] [place] [address] Carotid Duplex Ultrasound 11/16/17 1405 MR#: [id number] Acct: [id number] Name: MYRNA BA Rep #: [id number] : 1935 82 From: Rashawn Andujar MD Attending Dr: Meli Gómez DO Status: REG CLI Ordering Dr: Meli Gómez DO Date: 11/16/17 Location: MRI Sex: F C Admitted: Reason For Study: CAROTID STENOSIS Rt. Velocities/BP Lt. [...] left common carotid artery. The left internal carotid artery is not well visualized. There is heterogeneous, irregular atherosclerotic plaque noted in the left external carotid artery. Antegrade flow is noted in the left vertebral artery. Procedure Carotid Duplex 00407. Exam performed in department. Interpretation Summary Mild (<50%) stenosis right extracranial internal carotid. Mild (<50%) stenosis left extracranial internal carotid. Flow within the vertebral arteries is antegrade bilaterally. Ordering Physician: Meli Gómez Referring Physician: Meli Gómez Performed By: Judi Portillo RDCS, RVT 11/16/17 181 Date Rashawn Andujar MD CC: Meli Gómez DO Date Dictated: 11/16/17 1405 Date Transcribed: 11/16/171810 Office Clin Asst: Signed LOWER EXT NO JOINT Observed: 11/16/2017 Status: F Source: [place] W/WO CONT 12:17 PM [facility] Imaging Services [address] [place], [place] [address] [address] Lower Ext No Joint W/WO Cont MR#: [id number] Acct: [id number] Name: JESENIAMYRNA M Rep #: [id number] : 1935 F 82 From: Winter Pérez MD PCP: Meli Gómez DO Status: REG CLI Study: Lower Ext No Joint W/WO Cont Date of Exam: 11/16/17 Exam# [id number] Ordering Dr: Meli Gómez DO STUDY: MRI LOWER EXTREMITY RIGHT THIGH WITH AND WITHOUT CONTRAST REASON FOR EXAM: Female, 82 years old. UPPER ANTERIOR LATERAL LEG MASS, AREA TOP AND BOTTOM...MARKED BY BEADS TECHNIQUE: Standardized fat and water weighted pulse sequences were obtained in all 3 orthogonal planes, post contrast administration. 8 ml of Gadavist contrast material was administered intravenously for the contrast portion of the examination. COMPARISON: None. FINDINGS: There is motion artifact. Markers were placed at the lateral hip and anterior upper thigh. No abnormality is seen between the markers. There is joint space narrowing of the right hip joint consistent with osteoarthritis. There is a 4.4 cm well-circumscribed structure in the distal right femoral shaft which demonstrates STIR hypointensity and no definite enhancement. It may represent red marrow. No greater trochanteric or iliopsoas bursitis is seen. The visualized gluteus medius and minimus, iliopsoas and hamstring tendons are intact. No muscle edema or enhancement is seen. No mass or fluid collection is seen. No soft tissue edema is seen. There is colonic diverticulosis. MRI/Lower Ext No Joint W/WO Cont IMPRESSION: No mass is demonstrated. No abnormality is seen between the markers. 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 There is a benign-appearing structure in the distal right femoral shaft. Electronically Signed: Winter Pérez MD at 14:58 EDT , Service support , CC: Meli Gómez DO Office Clin Asst: Signed DOWNTIME REPORT Observed: 10/05/2017 Status: F Source: [place] 11:46 AM [facility] Medical Records Department [address] [place] [address] Downtime Report MR#: [id number] Acct: [id number] Name: JESENIAMYRNA Brooks Rep #: [id number] : 1935 82 From: Lit Escobar PCP: Meli Gómez DO Status: REG RCR This patient was seen during an EMR downtime September 18, 2017 - September 25, 2017. This patient may have a combination of paper and electronic documentation or all paper documentation. All documentation is viewable within the e-chart portion of [employer] for each patient visit. SCREENING MAMM (CAD), Observed: 06/19/2017 Status: F Source: [place] 11:04 AM [facility] Imaging Services [address] [place] [address] SCREENING MAMM (CAD), BILAT MR#: [id number] Acct: [id number] Name: MYRNA BA Rep #: [id number] : 1935 F 81 From: Blaine Victor MD PCP: Meli Gómez DO Status: REG CLI Study: SCREENING MAMM (CAD), BILAT Date of Exam: 06/19/17 Exam# [id number] Ordering Dr: Meli Gómez DO MAMMOGRAPHY - BILATERAL SCREENING REASON FOR EXAM: Female, 81 years old. Routine annual screening examination. PERTINENT HISTORY: Non-contributory. History of lung cancer. TECHNIQUE: Digital bilateral breast patti (3D mammographic acquisition) in the CC [...] the central lateral portion of the left breast. A central fatty notch is seen within [...] delay biopsy of a clinically suspicious abnormality. [id number] Electronically Signed: Blaine Victor MD at 13:11 EST Tel [phone], Service support , CC: Meli Gómez DO Office Clin Asst: Signed ALLERGIES ALLERGIES DATE TYPE / NAME / CODE REACTION SEVERITY SOURCE CODE 03/13/2018 Drug ipratropium Other Unknown [place] Allergy/41 bromide/[id number] [facility] [id number](SN 0(RXNORM) Hospital OMED CT) Repository 03/13/2018 Drug albuterol Other Unknown [place] Allergy/41 sulfate/[id number] [facility] 2102664(SN 5(RXNORM) Hospital OMED CT) Repository 03/13/2018 Drug morphine/[id number] UNCONTROLLED Unknown [place] Allergy/41 45(RXNORM) BEHAVIOR [facility] [id number]([facility] OMED CT) Repository ENCOUNTERS ENCOUNTERS ADMIT/DISCHARGE ACCOUNT ADMITTING ENCOUNTER LOCATION SOURCE NUMBER CLASS 04/02/2018 [id number] Ambulatory [place] 9 [facility] ing:ONC Repository 04/02/2018 [id number] Ambulatory [place] 7 [facility] ing:MASS Repository 03/16/2018 [id number] Ambulatory [place] 6 [facility] ing:CT Repository 03/14/2018 15730 Ambulatory Building:[facility] OHIP Practices Repository 03/13/2018/ [id number] Emergency [place] 8 4 [facility] ing:ED Repository 11/16/2017 [id number] Ambulatory [place] 1 [facility] ing:MRI Repository 06/19/2017 [id number] Ambulatory [place] 4 [facility] ing:BI Repository PAYERS PAYERS ENCOUNTER GUARANTOR PAYER SUBSCRIBER SOURCE 04/02/2018 MYRNA Guy Primary MYRNA Tse [id number] [place] Insurance:MEDICARE WHITEDOB: [facility] PART A BPolicy Number: [id number] [id number] Repository [address]Aky: (330) Date:2018-03-29 [phone] () 04/02/2018 Secondary MYRNA [place] Insurance:HUMANA WHITEDOB: [facility] [id number] Hospital Number: Repository [id number] Date:2546-28-19[address] [address]JN: 04/02/2018 Tertiary NOT GIVENUNK [place] Insurance:SELF PAY Community INSURANCEPolicy Hospital Number: Effective Repository Date:2018-03-29 04/02/2018 MYRNA Guy Primary Insurance:SELF NOT GIVENUNK [place] [id number] [place] PAY [facility] Number: Effective [place] Date:2015-04-17 Repository 438[address]Ulx: (HP) 03/16/2018 MYRNA Guy Primary MYRNA Guy [place] [id number] [place] Insurance:MEDICARE WHITEDOB: [facility] DIOMEDE PART A BPolicy Number: [id number] [place], [place] [id number] Repository [address]Ucw: (685) Date:2018-03-16 [phone] (HP) 03/16/2018 Secondary MYRNA Guy [place] Insurance:HUMANA WHITEDOB: [facility] [id number] Hospital Number: Repository [id number] Date:6615-48-23OG[address] [address]JX: 03/16/2018 Tertiary NOT GIVENUNK [place] Insurance:SELF PAY [facility] Number: Effective Repository Date:2018-03-16 03/14/2018 MYRNA Guy Primary MYRNA Guy [place] Practices WHITEDOB: Insurance:MedicarePoli WHITEDOB: Repository [id number] cy Number: [id number] [place] [id number] 9 [place], [place] Date:6521-54-12Bicq [place], [place] [address]Owh: 330) Name:[facility] [id number]: [id number], [place] [phone] (HP) (HP)Tel: [phone]: (wp) [phone] 03/14/2018 Secondary MYRNA Guy OHIP Practices Insurance:Humana/Suppl WHITEDOB: Repository [facility] [id number] Number: [address] [id number] [place], [place] Date:2526-41-24Iclh [address]Dyl: ([phone]) Name:[facility] [phone] () [address] [place] [address]RW: 03/13/2018 MYRNA Guy Primary MYRNA [place] [id number] [place] Insurance:MEDICARE WHITEDOB: Community DIOMEDE PART A BPolicy Number: [id number] [id number] Repository [address]Wav: 330) Date:2018-03-13 [phone] () 03/13/2018 Secondary NOT GIVENUNK [place] Insurance:SELF PAY [facility] Number: Effective Repository Date:2018-03-13 11/16/2017 Myrna Guy Primary Myrna [place] [id number] [place] Insurance:MEDICARE WhiteDOB: Community [place] PART A BPolicy Number: [id number] [id number] Repository [address]Kqf: 330) Date:2017-11-06 [phone] () 11/16/2017 Secondary Myrna Guy [place] Insurance:HUMANA WhiteDOB: Community COMMERCIALPolicy [id number] Hospital Number: Repository [id number] Date:2251-49-38GK [address] [place] [phone]: 11/16/2017 Tertiary NOT GIVENUNK [place] Insurance:SELF PAY [facility] Number: Effective Repository Date:2017-11-06 06/19/2017 Myrna Guy Primary Myrna [place] [id number] [place] Insurance:MEDICARE WhiteDOB: Community [place] PART A BPolicy Number: [id number] [id number] Repository [address]Fcn: 330) Date:2017-03-22 [phone] () 06/19/2017 Secondary Myrna Guy [place] Insurance:HUMANA WhiteDOB: Community COMMERCIALPolicy [id number] Hospital Number: Repository [id number] Date:3709-69-64CM [address] [place] [phone]: 06/19/2017 Tertiary NOT GIVENUNK [place] Insurance:SELF [facility] Effective Repository Date:2017-03-22
--- OUTSIDE RECORDS SUMMARY | 2018-04-25 02:17 | XMS RPT_ITS | Continuity of Care Document ---
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 Status: Active [...] she wake up rested but not been wqm3cestifi so she going to try to get [...] 30 {Tablet} Refills: 3 Ordered:05-Dec-2017 Meli TREJOradha LOMELI [...] KEFLEX, 500MG (Oral Capsule) 1 cap qid o67oofc (500 MG) End : 21-Oct-2014 Discontinued LevoFLOXacin [...] End : 25-Nov-2014 Discontinued Dispense as Written Comments:diimtrios MetroNIDAZOLE 500 MG Oral Tablet 4 Tablet [...] Duplex Ultrasound Result: Comments: See Note; NOTES: [facility] Cardiovascular Services [address] [place] [address] Carotid Duplex Ultrasound 11/16/17 1405 MR#: [id number] Acct: [id number] Name: AYAD AGUERO Rep #: [id number] : 1935 82 From: Rashawn Andujar MD Attending Dr: Meli Gómez DO Status: REG CLI Ordering Dr: Meli Gómez DO Date: 11/16/17 Location: MRI Sex: F C Admitted: [facility] For Study: CAROTID STENOSIS Rt. Velocities/BP [...] left vertebral artery. Procedure C arotid Duplex 69789. Exam performed in department. Interpretation Summary Mild (<50%) stenosis right extracranial internal carotid. Mild (<50%) stenosis left extracranial internal carot id. Flow within the vertebral arteries is antegrade bilaterally. Ordering Physician: Meli Gómez Referring Physician: Meli Gómez Performed By: Judi Portillo, FLORECITA, RVT 11/16/171810 Date Rashawn Andujar MD CC: Meli Gómez DO Date Dictated: 11/16/17 1405 Date Transcribed: 11/16/171810 Cash Applications Analyst: Signed 16-Nov-2017 Lower Ext No Joint W/WO Cont Result: Comments: See Note; NOTES: [facility] Imaging Services [address] [place] [address] Lower Ext No Joint W/WO Cont MR#: [id number] Acct: [id number] Name: AYAD BANUELOS Rep #: [id number] : 1935 F 82 From: Winter Pérez MD PCP: Meli Gómez DO Status: REG CLI Study: Lower Ext No Joint W/WO Cont Date of Exam: 11/16/17 Exam# [id number] Ordering Dr: Meli Gómez DO STUDY: MRI [...] Service support , CC: Meli Gómez DO Cash Applications Analyst: Signed 05-Oct-2017 Downtime Report Result: Comments: See Note; NOTES: [facility] Medical Records Department [address] [place] [address] Downtime Report MR#: [id number] Acct: [id number] Name: AYAD BANUELOS Rep #: [id number] : 1935 82 From: Lit Escobar PCP: Meli Gómez DO Status: REG RCR This patient was seen during an EMR downtime September 18, 2017 - September 25, 2017. This patient may have a combination of pap er and electronic documentation or all paper documentation. All documentation is viewable within the e-chart portion of [employer] for each patient visit. 19-Jun-2017 SCREENING MAMM (CAD), BILAT Result: Comments: See Note; NOTES: [facility] Imaging Services [address] [place] [address] SCREENING MAMM (CAD), BILAT MR#: [id number] Acct: [id number] Name: AYAD BANUELOS Rep #: [id number] : 1935 F 81 From: Blaine Victor MD PCP: Meli Gómez DO Status: REG CLI Study: SCREENING MAMM (CAD), BILAT Date of Exam: 06/19/17 Exam# [id number] Ordering Dr: Meli Gómez DO [facility] MOGRAPHY - BILATERAL SCREENING REASON FOR EXAM: [...] delay biopsy of a clinically suspicious abnormality. [id number] Electronically Signed: Blaine Victor MD at 13:11 EST Tel [phone], Serv ice support , CC: Meli Gómez DO Cash Applications Analyst: Signed 03-Apr-2017 Chest without Contrast Result: Comments: See Note; NOTES: [facility] Imaging Services [address] [place] [address] Chest without Contrast MR#: [id number] Acct: [id number] Name: AYAD BANUELOS Rep #: [id number] : 1935 F 81 From: Blaine Victor MD PCP: Meli Gómez DO Status: REG CLI Study: Chest without Contrast Date of Exam: 04/03/17 Exam# [id number] Ordering Dr: Jamie Cruz MD STUDY: CT [...] Blaine Victor MD at 10:03 EST Tel [phone], Service support , CC: Meli Gómez DO; Jamie Cruz MD Cash Applications Analyst: Signed 03-Jan-2017 Echocardiogram Complete Result: Comments: See Note; NOTES: [facility] Cardiovascular Services [address] [place] [address] Echo Complete 01/03/17 1059 MR#: [id number] Acct: [id number] Name: AYAD BANUELOS Rep #: [id number] : 1935 81 From: Luther Quintero MD [...] Performed By: Laina Pendleton, FLORECITA, RVT 01/03/17 5804 Date Luther Quintero MD CC: Meli Gómez DO Date Dictated: 01/03 1059 Date Transcribed: 01/03/17 1503 Cash Applications Analyst: Signed 03-Jan-2017 Dexa Bone Density Study (HP) Result: Comments: See Note; NOTES: [facility] Imaging Services [address] [place] [address] Dexa Bone Density Study (HP) MR#: [id number] Acct: [id number] Name: AYAD BANUELOS Rep #: [id number] : 1935 F 81 From: Blaine Victor MD PCP: Meli Gómez DO Status: REG CLI Study: Dexa Bone Density Study (HP) Date of Exam: 01/03/17 Exam# [id number] Ordering Dr: Meli Gómez TUDY: DUAL ENERGY [...] Blaine Victor MD at 14:06 EDT Tel [phone], Service support , CC: Meli Gómez DO Cash Applications Analyst: Signed 07-Sep-2016 Lumbar Spine 2 or 3 Views Result: Comments: See Note; NOTES: [facility] Imaging Services [address] [place] [address] Verdana 4d Lumbar Spine 2 or 3 Views MR#: [id number] Acct: [id number] Name: AYAD BANUELOS Rep #: [id number] : 1935 F 81 From: Reilly Donovan DO PCP: Meli Gómez DO Status: REG CLI Study: Lumbar Spine 2 or 3 Views Date of Exam: 09/07/16 Exam# [id number] Ordering Dr: Meli Gómez DO GIOVANY DY: [...] Service support , CC: Meli Gómez DO Cash Applications Analyst: Signed 13-Jun-2016 Carotid Duplex Ultrasound Result: Comments: See Note; NOTES: [facility] Cardiovascular Services [address] [place] [address] Carotid Duplex Ultrasound 06/10/16 0855 MR#: [id number] Acct: [id number] Name: AYAD AGUERO Rep #: [id number] : 1935 80 From: Rashawn Andujar MD Attending Dr: Meli Gómez DO Status: REG CLI Ordering Dr: Meli Gómez DO Date: 06/10/16 Location: [facility] Sex: F C Admitted: Reaso n For [...] the left vertebral artery. Procedure Carotid Duplex 50371. Exam performed in department. Interpretation Summary Mild (& amp;#60;50%) stenosis left extracranial internal carotid. Mild (<50%) stenosis right extracranial internal carotid. Flow within the vertebral arteries is antegrade bilaterally. Ordering Physician: Meli Gómez Performed By: Ada Pérez RVT 06/13/162219 Date Rashawn Andujar MD CC: Meli Gómez DO Date Dictated: 06/10/16854 Date Transcribed: 06/13/162219 Cash Applications Analyst: Signed 22-Apr-2016 SCREENING MAMM (CAD), BILAT Result: Comments: See Note; NOTES: [facility] Imaging Services [address] [place] [address] Verda 4d SCREENING MAMM (CAD), BILAT MR#: [id number] Acct: [id number] Name: PUNEET BANUELOS Rep #: [id number] : 1935 F 80 From: Nikita Rogers DO PCP: Meli Gómez DO Status: REG CLI Study: SCREENING MAMM (CAD), BILAT Date of Exam: 04/22/16 Exam# [id number] Ordering Dr: Meli Gómez DO MAMMOGRAPHY - [...] delay biopsy of a clinically suspicious abnormality. [id number] Electronically Signed: Nikita Rogers DO at 14:[address] Tel [phone], Service support [phone], CC: Meli Gómez DO Cash Applications Analyst: Signed 01-Apr-2016 Chest without Contrast Result: Comments: See Note; NOTES: [facility] Imaging Services [address] [place] [address] Verdana 4d Chest without Contrast MR#: [id number] Acct: [id number] Name: AYAD BANUELOS ep #: [id number] : 1935 F 80 From: Blaine Victor MD PCP: Meli Gómez DO Status: REG CLI Study: Chest without Contrast Date of Exam: 04/01/16 Exam# [id number] Ordering Dr: Jamie Cruz STUDY: CT CHEST [...] the visualized upper abdomen. ORD ER #: [id number] CT/Chest without Contrast IMPRESSION: Status post right lower lobectomy with elevation of the right hemidiaphragm. 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 The previously see n infiltration in the right upper lobe has resolved. Electronically Signed: Blaine Victor MD at 14:02 EST Tel [phone], Service support [phone], CC: Stacey Gómez DO; Jamie Cruz MD Cash Applications Analyst: Signed 04-Dec-2015 Chest PA and Lateral Result: Comments: See Note; NOTES: [facility] Imaging Services [address] [place] [address] Verdana 4d Chest PA and Lateral MR#: [id number] Acct: [id number] Name: AYAD BANUELOS Re p #: [id number] : 1935 F 80 From: Blaine Victor MD PCP: Meli Gómez DO Status: REG CLI Study: Chest PA and Lateral Date of Exam: 12/04/15 Exam# [id number] Ordering Dr: Meli Gómez DO STUD Y: [...] Blaine Victor MD at 11:18 EDT Tel [phone], Service support [phone], CC: Meli Gómez DO Cash Applications Analyst: Signed 13-Oct-2015 Chest PA and Lateral Result: Comments: See Note; NOTES: [facility] Imaging Services [address] [place] [address] Verdana 4d Chest PA and Lateral MR#: [id number] Acct: [id number] Name: JESENIA AYAD Brooks Rep #: [id number] : 1935 F 80 From: Scott Richard MD PCP: Meli Gómez DO Status: REG CLI Study: Chest PA and Lateral Date of Exam: 10/13/15 Exam# [id number] Ordering Dr: Tessa Cruz MD STUDY: X-RAY [...] at 15:58 EDT Tel , Service support [phone], RAD/Chest PA and Lateral IMPRESSION: Previously noted right pulmonary infiltrate is clear. Status post right partial pneumon ectomy. Electronically Signed: Scott Richard MD, FACR at 15:58 EDT , Service support [phone], CC: Meli Gómez DO; Jamie Cruz MD Cash Applications Analyst: Signed 18-Sep-2015 History and Physical Exam Result: Comments: See Note; NOTES: [facility] Medical Records Department [address] [place] [address] History and Physical 09/17/15 1442 MR#: [id number] Acct: [id number] Name: AYAD BANUELOS Rep #: [id number] : 1935 80 From: Jarvis Loyola PA-C PCP: Mlei Gómez DO Status: PRE IN Location: [facility] DATE OF SERVICE: This is Jarvis Loyola PA-C dictat ing a preoperative history and physical exam per Dr. Renny Wyman. PRIMARY CARE PHYSICIAN: Meli Gómez D.O. PROCEDURE TYPE: Left total knee arthroplasty. PROCEDURE DATE: September 29, 2015 ATTEND ING PHYSICIAN: Renny Wyman M.D. HISTORY OF PRESENT ILLNESS: This is an 80-year-old female, who has been a well-established patient of [facility]. The patient oconnell s had ongoing left [...] is helpful. [facility] and has been performing home [...] noted in the medical record. Please see [facility] medical history sheet. MEDIC AL PROBLEMS: 1. [...] intact. 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 The patient has ohmx-ev-xclh of the medial compartment. There are osteophytes [...] Jarvis Loyola PA-C T: JEAN CLAUDE JOB: [id number] 09/18/15 0840 <Electronically signed by Jarvis Loyola PA-C> Date: Time: Jarvis Loyola PA-C CC: Meli Gómez DO; Jarvis ROBB Date Dictated: 09/17/151441 Date Transcribed: 06/02 Cash Applications Analyst: Signed ____ I have re-examined the patient. There are no clinical changes since date of exam. ____ See Progress Notes for Changes ____ Dictated on Admission Da te: Time: Signature: -May-2015 Echocardiogram Complete Result: Comments: See Note; NOTES: [facility] Cardiovascular Services [address] [place] [address] Echo Complete 05/25/15 1414 MR#: [id number] Acct: [id number] Name: AYAD MENON Rep #: [id number] : 1935 79 From: Reece Rae MD Attending Dr: Meli Gómez DO Status: REG CLI Ordering Dr: Meli Gómez DO Date: 05/25/15 Location: [facility] Sex: F C Admitted: P valery This [...] Date Dictated: 05/25/15 1414 Date Transcribed: 05/25/151606 Cash Applications Analyst: Signed 20-May-2015 ELECTROCARDIOGRAM, COMPLETE (ECG) (06022) Comments: ekg showed normal sinus rhythym, normal axis, no acute st/t wave changes Result: [MEASUREMENTS ANALYSIS] Date of Test: 05/20/2015 12:44:57; Heart Rate: 60; DC Interval: 158; QRS: 102; QT Interval: 422; Corrected QT Interval (QTc): 422; P Wave [place]: 37; QRS Wave [place]: 38; T Wave [place] : 37; Blood Pressure: 120/66 [ECG DIAGNOSTIC STATEMENTS] Date of Test: 05/20/2015 12:44:57; Summary: Sinus Rhythm WITHIN NORMAL LIMITS 01-May-2015 Carotid Duplex Ultrasound Result: Comments: See Note; NOTES: [facility] Cardiovascular Services [address] [place] [address] Carotid Duplex Ultrasound 04/28/15 1358 MR#: [id number] Acct: [id number] Name: AYAD BANUELOS Rep #: [id number] : 1935 79 From: Rashawn Andujar MD [...] in the left bulb. Procedure Carotid Duplex 29489. The exam was diagnostic. Exam performed in department. Interpretation Summary Mild (<50%) stenosis right extracranial internal carotid. Mild (<50%) stenosis left extracranial architect intern al carotid. Flow within the vertebral arteries is antegrade bilaterally. Ordering Physician: Meli Vaughan Performed By: Laina Pendleton, FLORECITA, RVT 05/01/15 1007 Date Rashawn Andujar MD CC: Meli Gómez DO Date Dictated: 04/28/15 1358 Date Transcribed: 05/01/15 1007 Cash Applications Analyst: Signed 28-Apr-2015 Chest without Contrast Result: Comments: See Note; NOTES: [facility] Imaging Services [address] [place] [address] [facility] [place] 4d Chest without Contrast MR#: [id number] Acct: [id number] Name: AYAD AGUERO Rep #: [id number] : 1935 F 79 From: Blaine Victor MD PCP: Meli Gómez DO Status: REG CLI Study: Chest without Contrast Date of Exam: 04/28/15 Exam# [id number] Ordering Dr: Jamie Vigil MD STUDY: CT [...] Marci Tilley MD at 9:45 EST Tel [phone], Service support [phone], CC: Meli Gómez DO; Jamie Cruz MD Cash Applications Analyst: Signed 21-Apr-2015 Bilat Scrn Digital AND CAD Result: Comments: See Note; NOTES: [facility] Imaging Services [address] [place] [address] Verdana 4d Bilat Scrn Digital AND CAD MR#: [id number] Acct: [id number] Name: AYAD BANUELOS Rep #: [id number] : 1935 F 79 From: Blaine Victor MD PCP: Meli Gómez DO Status: REG CLI Study: Bilat Scrn Digital AND CAD Date of Exam: 04/21/15 Exam# [id number] Shalini lugo Dr: Meli Gómez DO MAMMOGRAPHY [...] delay biopsy of a clinically suspicious abnormality. [id number] Electronically Signed: Blaine rios MD at 10:09 EST Tel [phone], Service support [phone], CC: Meli Gómez DO Cash Applications Analyst: Signed 27-Nov-2014 Dexa Bone Density Study (HP) Result: Comments: See Note; NOTES: [facility] Imaging Services [address] [place] [address] Bone Density Report MR#: [id number] Acct: [id number] Name: AYAD BANUELOS Rep #: [id number] : 1935 F 79 From: Blaine Victor MD PCP: Meli Gómez DO Status: REG CLI Study: Dexa Bone Density Study (HP) Date of Exam: 11/27/14 Exam# [id number] Ordering Dr: Meli Gómez DO STUDY: DUAL [...] Blaine Victor MD at 13:39 EDT Tel [phone], Service support [phone], CC: Meli Gómez DO Cash Applications Analyst: Signed 16-Sep-2014 PT Discharge Summary Result: Comments: See Note; NOTES: [facility] Physical Therapy [facility] [address] [place] [address]. [address] [place] [address] Fax REHABILITATION SERVICES DISCHARGE SUMMARY MR#: [id number] Acct: [id number] Name: AYAD BANUELOS Rep #: [id number] : 1935 79 From: Candace Chacon Referring [...] infection. Lower extremity functional score equals 59/80, S4997-HA and A6703-RZ. I recommended that she continue independent gym exercises through [employer] and I am discharging her today at her request. Candace Chacon, PT T: [facility] JOB: [id number] <El ectronically signed by Candace Chacon > 09/16/14 1524 CC: Signed 13-Aug-2014 Inital Evaluation - PT Result: Comments: See Note; NOTES: [facility] Physical [facility] [address] [place], [place] [address] Fax REHABILITATION SERVICES INITIAL EVALUATION MR#: [id number] Acct: [id number] Name: AYAD BANUELOS Rep #: [id number] : 1935 79 From: Candace Chacon Referring [...] possible infection and when I spoke with [facility], they recommended holding physical therapy until [...] now. After her surgery, she went to [facility]'s tertiary care unit for about 1 week [...] plan of care. Candace Chacon, PT T: [facility] JOB: [id number] <Electronically signed by Candace Chacon > 08/13/14 1049 CC: Signed For Medicare only, by signing this I certify the plan of care. Physicians Signature Date 05-Aug-2014 Emergency Department Summary Result: Comments: See Note; NOTES: [facility] Medical Records Department [address] [place] [address] Emergency Department Summary MR#: [id number] Acct: [id number] Name: JESENIA AYAD M Rep #: [id number] : 1935 78 From: Renny John MD [...] Azam Mccabe C: Meli Durand MD T: [facility] JOB: [id number] 08/05/14 1003 <Electronically signed by Renny John MD> Date Renny John MD CC: Meli Gómez DO; Renny Wyman MD Date Dictated: 08/02/142300 Date Transcribed: 08/02/142300 Cash Applications Analyst: Signed 02-Aug-2014 Discharge Instruction Result: Comments: See Note; NOTES: [facility] Medical Records Department [address] [place] [address] Discharge Instruction 08/02/142250 MR#: [id number] Acct: [id number] Name: AYAD BANUELOS Rep #: [id number] : 1935 78 From: Renny John MD [...] Emergency Room. Call 911 if necessary. 08/02/14 4527 <Electronically signed by Renny John MD> Date Renny John MD Cosigner Signature (If Indicated): Date CC: Meli Gómez DO 15-Jul-2014 History and Physical Exam Result: Comments: See Note; NOTES: [facility] Medical Records Department [address] [facility] [place] [address] History and Physical 07/11/14 1431 MR#: [id number] Acct: [id number] Name: AYAD BANUELOS Rep #: [id number] : 1935 78 From: Emily Bravo PCP: Meli Gómez DO Status: PRE IN Location: [facility] DATE OF SERVICE: This is Emily Bravo [...] week. REVIEW OF SYSTEMS: Documented in the [facility] medical history sheet. ALLERGIES: MORPHINE, ALTHOUGH NOT [...] right knee dated July 02, 2012 at [facility], weightbearing, AP, tunnel, sunrise, lateral views with [...] will be reviewed and documented in the [facility] electronic medical system for review. IMPRESSION: 1. [...] form. CLARISSE Dutton T: JEAN CLAUDE JOB: [id number] 07/15/14 1226 <Electronically signed by Emily Bravo > Date: Time: Emily Bravo CC: Emily Gómez DO Date Dictated: 07/11/14 143 Date Transcribed: 03/27 /15 1431 Cash Applications Analyst: Signed ____ I have re-examined the patient. There are no clinical changes since date of exam. ____ See Progress Notes for Changes ____ Dictated on Admission Dany e: Time: Signature: -Apr-2014 Carotid Duplex Ultrasound Result: Comments: See Note; NOTES: [facility] Cardiovascular Services [address] [place] [address] Carotid Duplex Ultrasound 04/28/14 1326 MR#: [id number] Acct: [id number] Cooper e: JESENIAPUNEETIrving Guy Rep #: [id number] : 1935 78 From: Rashawn Andujar MD [...] significant atherosclerotic plaque noted in the left manager of software development al carotid artery. Antegrade flow is noted in the left vertebral artery. There is no significant atherosclerotic plaque noted in the left bulb. Procedure Carotid Duplex 22499. Exam performed in [facility]. Interpretation Summary Mild (<50%) stenosis right extracranial internal carotid. Mild (<50%) stenosis left extracranial internal carotid. Flow within the vertebral arterie s is antegrade bilaterally. Ordering Physician: Meli Gómez Performed By: Fadia Cummings RDCS and Student 05/02/142038 Date Rashawn Andujar MD CC: Meli Gómez DO Da te Dictated: 04/28/14 1326 Date Transcribed: 05/02/142038 Cash Applications Analyst: Signed 28-Apr-2014 Chest without Contrast Result: Comments: See Note; NOTES: [facility] Imaging Services [address] [place] [address] CAT Scan Report MR#: [id number] Acct: [id number] Name: AYAD BANUELOS Rep #: [id number] : 1935 F 78 From: Blaine Victor MD PCP: Meli Gómez DO Status: REG CLI Study: Chest without Contrast Date of Exam: 04/28/14 Exam# [id number] Ordering Dr: Jamie Cruz MD UDY: CT [...] Blaine Victor MD at 15:55 EST Tel [phone], Service support [phone], CC: Meli Gómez DO; Jamie Cruz MD Cash Applications Analyst: Signed 18-Apr-2014 Bilat Scrn Digital AND CAD Result: Comments: See Note; NOTES: [facility] Imaging Services [address] [place], [place] [address] [address] Breast Imaging Report MR#: [id number] Acct: [id number] Name: AYAD BANUELOS Rep #: [id number] : 1935 F 78 From: Blaine Victor MD PCP: Meli Gómez DO Status: REG CLI Study: [place] [employer] Digital AND CAD Date of Exam: 04/18/14 Exam# [id number] Ordering Dr: Meli Gómez DO MAMMOGRAPHY - [...] Blaine Victor MD at 13:33 EST Tel [phone], Service support [phone], CC: Meli Gómez DO Cash Applications Analyst: Signed 01-Apr-2013 [place] [employer] Digital & CAD Result: Comments: See Note; NOTES: [facility] Imaging Services [address] [place] [address] Breast Imaging Report MR#: [id number] Acct: [id number] Name: AYAD BANUELOS Rep #: [id number] : 1935 F 77 From: Blaine Victor MD PCP: Status: REG CLI Exam# [id number] Ordering Dr: Meli Gómez DO MAMMOGRAPHY - [...] M.D. at 16:07 EST , Service support [phone], CC: Meli Gómez DO Cash Applications Analyst: Signed Immunization Name Dates Details Influenza (3 years and up) on: 23-Jan-2009 Comments: Lot #[id number] deltoidgiven by:CDH Family History Unknown Family Member [...] Date Description Value Details :04 LIPID PANEL (76103) Comments: PATIENT WAS FASTINGPERFORMED BY: [employer]70 [facility] [id number] LDL/HDL Ratio 1.2 {ratio} (Normal) Range: 0.0-3.2 [...] Range: 100-199 :04 CBC with auto diff (71694) Comments: PATIENT WAS FASTINGPERFORMED BY: [employer] [facility] [id number] Immature Grans (Abs) 0.0 {x10E3/uL} (Normal) Range: [...] 3.77-5.28 WBC 7.7 {x10E3/uL} (Normal) Range: 3.4-10.8 48-Dzb-94995:04 METABOLIC PANEL, COMPREHENSIVE Comments: PATIENT WAS FASTINGPERFORMED BY: [facility] DenvilleNyefpl9257 [facility] [id number] (80965) ALT (SGPT) 19 [iU]/L (Normal) Range: 0-32 [...] mg/dL (Normal) Range: 65-99 :04 HGB A1C (81831) Comments: PATIENT WAS FASTINGPERFORMED BY: [employer] Ldkfth4696 [facility] [id number]; appt 02/06 Hemoglobin A1c 5.8 % (Abnormal) Range: 4.8-5.6 Comments: . Prediabetes: 5.7 - 6.4 Diabetes: >6.4 Glycemic control for adults with diabetes: <7.0 :04 TSH (15952) Comments: PATIENT WAS FASTINGPERFORMED BY: [employer] Rkkmky6827 [facility] [id number] TSH 2.980 {uIU/mL} (Normal) Range: 0.450-4.500 :09 CBC with auto diff (49607) Comments: PATIENT NOT FASTINGPERFORMED BY: [facility]scaleSaint [facility] DenvilleYsqiwx0594 [facility] [id number] Immature Grans (Abs) 0.0 {x10E3/uL} (Normal) Range: [...] 3.77-5.28 WBC 7.6 {x10E3/uL} (Normal) Range: 3.4-10.8 48-Tsp-59075:09 METABOLIC PANEL, COMPREHENSIVE Comments: PATIENT NOT FASTINGPERFORMED BY: [facility] DenvilleDbpgep5888 [facility] [id number] (16336) ALT (SGPT) 19 [iU]/L (Normal) Range: 0-32 [...] 8-27 Glucose 95 mg/dL (Normal) Range: 65-99 63-Qvn-18305:09 HGB A1C (19831) Comments: PATIENT NOT FASTINGPERFORMED BY: [facility] [id number] Hemoglobin A1c 5.6 % (Normal) Range: 4.8-5.6 Comments: . Pre-diabetes: 5.7 - 6.4 Diabetes: >6.4 Glycemic control for adults with diabetes: <7.0 :09 MICROALBUMIN URINE QUANT Comments: PATIENT NOT FASTINGPERFORMED BY: [place] 0587270 [facility] [id number] (14780) Alb/Creat Ratio 3.9 {mg/g_creat} (Normal) Range: 0.0-30.0 Albumin, Urine 3.0 ug/mL (Normal) Creatinine, Urine 77.8 mg/dL (Normal) :09 LIPID PANEL (95908) Comments: PATIENT NOT FASTINGPERFORMED BY: [place] 0587270 [facility] [id number] LDL/HDL Ratio 1.5 {ratio} (Normal) Range: 0.0-3.2 [...] DIFF WBC Comments: PATIENT NOT FASTINGPERFORMED BY: [address] [id number] Information: NURSE DRAW (86120) Immature Grans (Abs) 0.0 {x10E3/uL} (Normal) Range: [...] 3.77-5.28 WBC 7.2 {x10E3/uL} (Normal) Range: 3.4-10.8 02-Sdq-816854:26 TSH (03572) Comments: 6 weeks; PATIENT NOT FASTINGPERFORMED BY: [employer]70 [facility] [id number] TSH 2.730 {uIU/mL} (Normal) Range: 0.450-4.500 2-Tqz-636619:58 HgA1C , Office (69780) HgA1C , Office 5.6 % (Normal) Range: 4.6 - 7.1 :42 LIPID PANEL (17814) Comments: PATIENT WAS FASTINGPERFORMED BY: ViblioUNM HospitalPpnugp1874 [facility] [id number] LDL/HDL Ratio 2.4 {ratio_units} (Normal) Range: 0.0-3.2 Comments: LDL/HDL Ratio Men Women 1/2 Avg.Risk 1.0 1.5 Av g.Risk 3.6 3.2 2X Avg.Risk 6.2 5.0 3X Avg.Risk 8.0 6.1 LDL Cholesterol Calc 134 mg/dL (Abnormal) Range: 0-99 VLDL Cholesterol Cas 27 mg/dL (Normal) Range: 5-40 HDL Cholesterol 56 mg/dL (Normal) Triglycerides 133 mg/dL (Normal) Range: 0-149 Cholesterol, Total 217 mg/dL (Abnormal) Range: 100-199 2-Spg-803315:58 MICROALBUMIN: CREATININE RATIO Comments: PATIENT NOT FASTINGPERFORMED BY: Axis SemiconductorCoSaint Clare's Hospital at DenvilleDatgsz2348 [facility] [id number] (78895) AND (89308) Microalb/Creat Ratio 5.7 {mg/g_creat} (Normal) Range: 0.0-30.0 Microalbumin, Urine 3.2 ug/mL (Normal) Creatinine, Urine 56.6 mg/dL (Normal) :42 CBC W/AUTO DIFF WBC (78090) Comments: PATIENT WAS FASTINGPERFORMED BY: LabCoSaint Clare's Hospital at DenvilleQasvmd5488 [facility] [id number] Immature Grans (Abs) 0.0 {x10E3/uL} (Normal) Range: [...] 3.77-5.28 WBC 7.7 {x10E3/uL} (Normal) Range: 3.4-10.8 54-Lps-52661:42 METABOLIC PANEL, COMPREHENSIVE Comments: PATIENT WAS FASTINGPERFORMED BY: [facility]6370 [facility] [id number] (18880) ALT (SGPT) 14 [iU]/L (Normal) Range: 0-32 [...] 98 mg/dL (Normal) Range: 65-99 :42 TSH (23111) Comments: PATIENT WAS FASTINGPERFORMED BY: Lab[employer].Mvghje9054 [facility] [id number] TSH 6.380 {uIU/mL} (Abnormal) Range: 0.450-4.500 :38 HgA1C , Office (11705) HgA1C , Office 5.4 % (Normal) Range: 4.6 - 7.1 :31 LIPOPROTEIN, BLD, BY NMR Comments: PATIENT WAS FASTINGPERFORMED BY: LabCoSonya Ville [address] [facility] [id number] BY: LabMadwire Media6370 [facility] [id number] (65780) LP-IR Score 42 (Normal) Comments: INSULIN RESISTANCE MARKER <--Insulin Sensitive Insulin Resistant--> Percentile in Reference PopulationInsulin Resistance ScoreLP-IR Score Low 25th 50th 75th High <27 27 45 63 >63LP-IR Score is inaccurate if patient is non-fasting. .The LP-IR score is a laboratory developed i [facility] that has beenassociated with insulin resistance and [...] were developed and their performance characteristicsdetermined by [employer]. These assays have not been cleared by [...] 1600 - 2000 Very High > 2000 86-Sxb-01702:31 TSH (54092) Comments: PATIENT WAS FASTINGPERFORMED BY: LivingSocialton1447 [facility] [id number] BY: [employer] Cwdqjo2484 [facility] [id number] TSH 4.600 {uIU/mL} (Abnormal) Range: 0.450-4.500 09-Led-36724:31 CBC with auto diff Comments: PATIENT WAS FASTINGPERFORMED BY: Easy Metricston1447 [facility] [id number] BY: [employer]70 [facility] [id number] (93033) Immature Grans (Abs) 0.0 {x10E3/uL} (Normal) Range: [...] 3.77-5.28 WBC 8.3 {x10E3/uL} (Normal) Range: 3.4-10.8 26-Xvf-20321:31 METABOLIC PANEL, Comments: PATIENT WAS FASTINGPERFORMED BY: [facility] [address] [id number] BY: CB [facility] Pnmfkr5926 [facility] [id number] COMPREHENSIVE (13361) ALT (SGPT) 15 [iU]/L (Normal) Range: 0-32 [...] Glucose, Serum 101 mg/dL (Abnormal) Range: 65-99 50-Ybq-633968:32 Metabolic Panel, Basic Comments: PATIENT NOT FASTINGPERFORMED BY: [facility] Ayuanx5653 [facility] [id number] (40881) Calcium, Serum 9.9 mg/dL (Normal) Range: 8.7-10.3 [...] (Normal) Range: 65-99 :48 HgA1C , Office (66372) HgA1C , Office 5.6 % (Normal) Range: 4.6 - 7.1 :56 CBC W/AUTO DIFF WBC Comments: PATIENT WAS FASTINGPERFORMED BY: BN [facility] Ixtnxcyyrs7641 [facility] [id number] BY: CB [facility] Vzovcf1491 [facility] [id number] (23952) Immature Grans (Abs) 0.0 {x10E3/uL} (Normal) Range: [...] METABOLIC PANEL, Comments: PATIENT WAS FASTINGPERFORMED BY: Floodlight[address] [id number] BY: Lab3scaleSaint Clare's Hospital at DenvilleSbbtja9464 [facility] [id number] COMPREHENSIVE (95515) ALT (SGPT) 16 [iU]/L (Normal) Range: 0-32 [...] Glucose, Serum 93 mg/dL (Normal) Range: 65-99 48-Rri-39492:56 C-REACT PROT HIGH Comments: PATIENT WAS FASTINGPERFORMED BY: [employer] [id number] BY: Lab3scaleSaint Clare's Hospital at DenvilleDwhbdi2916 [facility] [id number] SENS(hsCRP) (11182) C-Reactive Protein, Cardiac 1.83 mg/L (Normal) Range: 0.00-3.00 Comments: Relative Risk for Future Cardiovascular Event Low <1.00 Average 1.00 - 3.00 High >3.00 68-Xer-46766:56 LIPOPROTEIN, BLD, BY NMR Comments: PATIENT WAS FASTINGPERFORMED BY: BN [facility] Zoekxmrzha7350 [facility] [id number] BY: CB [facility] Nartac7024 [facility] [id number]; non-emergent till apt this week (39606) LP-IR Score <25 (Normal) Comments: INSULIN RESISTANCE MARKER <--Insulin Sensitive Insulin Resistant--> Percentile in Reference PopulationInsulin Resistance ScoreLP-IR Score Low 25th 50th 75th High <27 27 45 63 >63LP-IR Score is inaccurate if patient is non-fasting. .The LP-IR score is a laboratory developed i [facility] that has beenassociated with insulin resistance and [...] were developed and their performance characteristicsdetermined by [employer]. These assays have not been cleared by [...] 1600 - 2000 Very High > 2000 46-Vci-313130:28 URINE ALETHEA CULTURE-ORLIN COL Comments: PATIENT NOT FASTINGPERFORMED BY: [facility] Xiwjcd8848 [facility] [id number] Information: SRC:UC COUNT (63148) Result 1 NG36 (Normal) Comments: No growth in 36 - 48 hours. Urine Culture,Comprehensive Final report (Normal) 41-Wzt-497335:30 NuSwab Vaginitis (VG) Comments: PATIENT NOT FASTINGPERFORMED BY: [facility] Vgnbndffie1726 [facility] [id number] Information: SRC:VA Trich vag by SIDNEY Negative (Normal) Hali glabrata, SIDNEY Negative (Normal) Comments: This test was developed and its performance characteristics determinedby Axis SemiconductorSalem Memorial District Hospital. It has not been cleared or [...] Atopobium vaginae Low - 0 {Score} (Normal) 8-Elu-256435:22 CBC W/AUTO DIFF WBC Comments: PATIENT WAS FASTINGPERFORMED BY: NUBIA [facility] Dtzdzk9039 [facility] [id number] Information: NURSE DRAW (17324) Immature Grans (Abs) 0.0 {x10E3/uL} (Normal) Range: [...] 3.77-5.28 WBC 7.7 {x10E3/uL} (Normal) Range: 3.4-10.8 3-Toc-391096:22 METABOLIC PANEL, COMPREHENSIVE Comments: PATIENT WAS FASTINGPERFORMED BY: [facility] Povlak6531 [facility] [id number]; [facility]- non-emergent till apt (41950) ALT (SGPT) 18 [iU]/L (Normal) Range: 0-32 [...] Glucose, Serum 87 mg/dL (Normal) Range: 65-99 7-Qdx-160851:22 MICROALBUMIN: CREATININE RATIO Comments: PATIENT WAS FASTINGPERFORMED BY: [facility] Istzgp4904 [facility] [id number] (69439) AND (42399) Microalb/Creat Ratio 7.1 {mg/g_creat} (Normal) Range: 0.0-30.0 Microalbumin, Urine 9.3 ug/mL (Normal) Creatinine, Urine 130.6 mg/dL (Normal) 37-Bnc-072221:08 Urinalysis, Office (34471) UA - LEUKOCYTE ESTERASE Negative (Normal) UA - NITRITE Negative (Normal) URINE UROBILINGN ORLIN TIMED Normal mg/dL (Normal) UA - PROTEIN Negative mg/dL (Normal) UA - PH 7 (Normal) UA - BLOOD Negative (Normal) UA - SPECIFIC GRAVITY 1.020 (Normal) UA - KETONES Negative mg/dL (Normal) UA - BILIRUBIN Negative (Normal) UA - GLUCOSE Negative (Normal) 06-Vbg-756526:08 HgA1C , Office (11141) HgA1C , Office 5.7 % (Normal) Range: 4.6 - 7.1 18-Feb-20168:42 METABOLIC PANEL, COMPREHENSIVE Comments: PATIENT WAS FASTINGPERFORMED BY: LabCoSaint Clare's Hospital at DenvilleXagbtl9188 [facility] [id number] (90967) ALT (SGPT) 16 [iU]/L (Normal) Range: 0-32 [...] Range: 65-99 :42 CBC W/AUTO DIFF WBC (26168) Comments: PATIENT WAS FASTINGPERFORMED BY: [facility]6370 [facility] [id number] Immature Grans (Abs) 0.0 {x10E3/uL} (Normal) Range: [...] 7.4 {x10E3/uL} (Normal) Range: 3.4-10.8 :42 TSH (10675) Comments: PATIENT WAS FASTINGPERFORMED BY: [facility]6370 [facility] [id number] TSH 3.380 {uIU/mL} (Normal) Range: 0.450-4.500 :42 LIPID PANEL (83573) Comments: PATIENT WAS FASTINGPERFORMED BY: [address] [id number] LDL/HDL Ratio 2.4 {ratio_units} (Normal) Range: 0.0-3.2 [...] (LACTATE DEHYDROGENASE) Comments: PATIENT WAS FASTINGPERFORMED BY: [place] 0587270 [facility] [id number] (21718) LDH 201 [iU]/L (Normal) Range: 119-226 04-Yti-504329:42 METABOLIC PANEL, COMPREHENSIVE Comments: PATIENT NOT FASTINGPERFORMED BY: [place] 0587270 [facility] [id number] (11150) ALT (SGPT) 17 [iU]/L (Normal) Range: 0-32 [...] Glucose, Serum 75 mg/dL (Normal) Range: 65-99 11-Irb-172335:42 SED RATE ERYTHROCYTE (84662) Comments: PATIENT NOT FASTINGPERFORMED BY: [employer] Aqatxf8388 [facility] [id number] Sedimentation Rate-Westergren 21 mm/h (Normal) Range: 0-40 88-Mbb-931009:42 C-REACTIVE PROTEIN (89396) Comments: PATIENT NOT FASTINGPERFORMED BY: [employer] Nlxogj8248 [facility] [id number] C-Reactive Protein, Quant 1.7 mg/L (Normal) Range: 0.0-4.9 43-Hcv-374831:42 LDH (LD) (LACTATE DEHYDROGENASE) Comments: PATIENT NOT FASTINGPERFORMED BY: SCHAD Mtmbmb4830 [facility] [id number] (46318) LDH 231 [iU]/L (Abnormal) Range: 119-226 91-Zcn-536794:42 TSH (81987) Comments: PATIENT NOT FASTINGPERFORMED BY: ViblioSaint Clare's Hospital at DenvilleDnehmc4526 [facility] [id number] TSH 2.050 {uIU/mL} (Normal) Range: 0.450-4.500 :42 CBC with auto diff Comments: PATIENT NOT FASTINGPERFORMED BY: [facility] HospitalCoSaint Clare's Hospital at DenvilleLehcna4063 [facility] [id number] Information: [id number] (79094) Immature Grans (Abs) 0.0 {x10E3/uL} (Normal) Range: [...] 8.7 {x10E3/uL} (Normal) Range: 3.4-10.8 :20 TSH (26596) Comments: PATIENT NOT FASTINGPERFORMED BY: LabCoSaint Clare's Hospital at DenvilleVtlqrc0950 [facility] [id number] TSH 1.720 {uIU/mL} (Normal) Range: 0.450-4.500 :20 CBC with auto diff Comments: PATIENT NOT FASTINGPERFORMED BY: [place] 0587270 [facility] [id number] Information: [id number] (52168) Immature Grans (Abs) 0.0 {x10E3/uL} (Normal) Range: [...] 3.77-5.28 WBC 8.9 {x10E3/uL} (Normal) Range: 3.4-10.8 3-Rfh-076571:20 METABOLIC PANEL, COMPREHENSIVE Comments: PATIENT NOT FASTINGPERFORMED BY: [facility]6370 [facility] [id number] (50222) ALT (SGPT) 17 [iU]/L (Normal) Range: 0-32 [...] Glucose, Serum 97 mg/dL (Normal) Range: 65-99 9-Rpt-959410:43 MRSA/SAID SCREEN Comments: [facility] Qvrdzhbrgi69[address] [place], [place], [id number] MRSA+SAID SCRN See Note (Normal) Comments: MRSA/SAID SCRNS. AUREUS S. aureus NegativeMRSA MRSA Negative 73-Fam-00565:29 Microscopic Examination Comments: PATIENT WAS FASTINGPERFORMED BY: [facility] Qdzzeg1998 [facility] [id number] Bacteria None seen (Normal) Mucus Threads Present (Normal) Epithelial Cells (non renal) 0-10 {/hpf} (Normal) Range: 0 - 10 RBC 0-2 {/hpf} (Normal) Range: 0 - 2 WBC 0-5 {/hpf} (Normal) Range: 0 - 5 90-Ooj-284571:14 [facility] STD (STD W/ Comments: PATIENT NOT FASTINGPERFORMED BY: [employer] [id number] Information: [id number] Herpes) (81481) HSV 2 SIDNEY Negative (Normal) HSV 1 SIDNEY Negative (Normal) Neisseria gonorrhoeae, Negative (Normal) SIDNEY Chlamydia trachomatis, Negative (Normal) SIDNEY Trich vag by SIDNEY Negative (Normal) Hali glabrata, SIDNEY Negative (Normal) Comments: This test was developed and its performance characteristics determinedby [employer]. It has not been cleared or approved [...] was developed and its performance characteristicsdetermined by [employer]. It has not been cleared or approvedby the Food and Drug Administration. The FDA has determinedthat such clearance or approval is not necessary. BVAB 2 Low - 0 {Score} (Normal) Atopobium vaginae Low - 0 {Score} (Normal) :29 PTT (Activated Partial Comments: PATIENT WAS FASTINGPERFORMED BY: [facility]6370 [facility] [id number] Thromboplastin Time) (97155) aPTT 30 {sec} (Normal) Range: 24-33 Comments: This test has not been validated for monitoring unfractionated heparintherapy. aPTT-based therapeutic ranges for unfractionated heparintherapy have not been established. For general guidelines onHeparin monitoring, refer to the Axis SemiconductorSal[facility] Directory of Services. :29 PT (Prothrobim Time) (57481) Comments: PATIENT WAS FASTINGPERFORMED BY: [facility]6370 [facility] [id number] Prothrombin Time 10.9 {sec} (Normal) Range: 9.1-12.0 INR 1.1 (Normal) Range: 0.8-1.2 Comments: Reference interval is for non-anticoagulated patients. . Suggested INR therapeutic range for Vitamin K anta gonist therapy: Standard Dose (moderate intensity therapeutic range): 2.0 - 3.0 Higher intensity therapeutic range 2.5 - 3.5 :29 URINALYSIS, W/ MICRO (66036) Comments: PATIENT WAS FASTINGPERFORMED BY: SCHADSaint Clare's Hospital at DenvilleZoibfn7721 [facility] [id number] Microscopic Examination See below: (Normal) Comments: Microscopic was indicated and was performed. Microscopic Examination MICRON (Normal) Comments: Microscopic follows if indicated. Nitrite, Urine Negative (Normal) Urobilinogen,Semi-Qn 1.0 mg/dL (Normal) Range: 0.2-1.0 Bilirubin Negative (Normal) Occult Blood Negative (Normal) Ketones Negative (Normal) Glucose Negative (Normal) Protein Negative (Normal) WBC Esterase Negative (Normal) Appearance Clear (Normal) Urine-Color Yellow (Normal) pH 6.0 (Normal) Range: 5.0-7.5 Specific [place] 1.017 (Normal) Range: 1.005-1.030 :29 CBC W/AUTO DIFF WBC Comments: PATIENT WAS FASTINGPERFORMED BY: SCHADSaint Clare's Hospital at DenvilleEmiznm0556 [facility] [id number] Information: [id number] (28600) Immature Grans (Abs) 0.0 {x10E3/uL} (Normal) Range: [...] 3.77-5.28 WBC 6.1 {x10E3/uL} (Normal) Range: 3.4-10.8 62-Ffv-36145:29 METABOLIC PANEL, COMPREHENSIVE Comments: PATIENT WAS FASTINGPERFORMED BY: LabCoSaint Clare's Hospital at DenvilleLrziwg9562 [facility] [id number]; non- emergent till apt (42022) ALT (SGPT) 17 [iU]/L (Normal) Range: 0-32 [...] Glucose, Serum 89 mg/dL (Normal) Range: 65-99 64-Zdk-139129:0 COLON BIOPSY (CHOOSE See Note (Normal) Comments: [facility] Bsozcdsoqo[address] [place], [place], [address] 5 SITE) Comments: Patient: AYAD BANUELOS : 1935 (79/F) Acct Num: [id number] Phys: Cesario Tavares Unit Num: [id number] Loc: LABSPEC Specimen: [id number] Received: 05/14/15 - [...] one cassette. / AM:karen 05/15/15 TC:1 CPT: 17404 HEADER OPERATION: Colonoscopy with biopsies PRE-OP DIAGNOSIS: H/O polyps TISSUE SUBMITTED: Proximal transverse colon, hepatic flexure biopsy, rule out adenoma MICROSCOPIC DESCRIPTION Slides are reviewed. MICROSCOPIC DI AGNOSIS Polyp transverse colon, hepatic flexure, biopsy: Fragments of tubular adenoma. SJ:karen 05/18/15 Signed Bobby Chahal 05/18/15 <si gnature on file> 10-Ufu-728220:32 Hemoglobin Glyclated (HGB Comments: PATIENT NOT FASTINGPERFORMED BY: NUBIA LabCo Bnmixh7084 [facility] [id number] Information: [id number] A1C) (28385) Hemoglobin A1c 5.4 % (Normal) Range: 4.8-5.6 Comments: . Pre-diabetes: 5.7 - 6.4 Diabetes: >6.4 Glycemic control for adults with diabetes: <7.0 :32 TSH (61774) Comments: PATIENT NOT FASTINGPERFORMED BY: Axis SemiconductorSinai-Grace Hospital6370 [facility] [id number] TSH 2.700 {uIU/mL} (Normal) Range: 0.450-4.500 :32 T4, FREE (THYROXINE) (00723) Comments: PATIENT NOT FASTINGPERFORMED BY: [facility]6370 [facility] [id number] T4,Free(Direct) 1.64 ng/dL (Normal) Range: 0.82-1.77 :32 T3, FREE (TRIDOTHYRONINE) (01456) Comments: PATIENT NOT FASTINGPERFORMED BY: LabSinai-Grace Hospital6370 [facility] [id number] Triiodothyronine,Free,Serum 2.9 pg/mL (Normal) Range: 2.0-4.4 :06 LIPID PANEL (93101) Comments: PATIENT WAS FASTINGPERFORMED BY: [facility]6370 [facility] [id number] LDL/HDL Ratio 2.0 {ratio_units} (Normal) Range: 0.0-3.2 [...] non-emergent till apt :06 Vitamin D Hydroxy (39467) Comments: PATIENT WAS FASTINGPERFORMED BY: LabCoSaint Clare's Hospital at DenvilleHgftae0840 [facility] [id number] Vitamin D, 25-Hydroxy 44.7 ng/mL (Normal) Range: 30.0-100.0 Comments: Vitamin D deficiency has been defined by the Fletcher ofMedicine and an Endocrine Society practice guideline as alevel of serum 25-OH vitamin D less than 20 ng/mL (1,2).The Endocrine Society went on to further define vitamin Dinsufficiency as a level between 21 and 29 ng/mL (2).1. IOM (Fletcher of Medicine). 2010. Dietary reference intakes for calcium and D. [place]: The National Academies Press.2. Candace MF, Ronak [place], Andrew OCONNELL, et al. Evaluation, treatment, and prevention of vitamin D deficiency: an Endocrine Society clinical practice guideline. JCEM. 2010; 96(7):1911-30. :06 METABOLIC PANEL, Comments: PATIENT WAS FASTINGPERFORMED BY: [facility] Sbxfei9875 [facility] [id number] Information: [id number] COMPREHENSIVE (41741) ALT (SGPT) 18 [iU]/L (Normal) Range: 0-32 [...] Glucose, Serum 81 mg/dL (Normal) Range: 65-99 3-Yhh-699135:42 CBC With Differential/Platelet Comments: PATIENT NOT FASTINGPERFORMED BY: [facility] Jbwuyh0229 [facility] [id number] Information: [id number] Immature Grans (Abs) 0.0 {x10E3/uL} (Normal) Range: [...] (Normal) Range: 3.4-10.8 :36 HgA1C , Office (31338) HgA1C , Office 5.8 % (Normal) Range: 4.6 - 7.1 :25 Comp. Metabolic Panel (14) Comments: PATIENT WAS FASTINGPERFORMED BY: LabCo Yxbuqh2307 [facility] [id number] Information: [id number] ALT (SGPT) 14 [iU]/L (Normal) Range: 0-32 [...] Glucose, Serum 96 mg/dL (Normal) Range: 65-99 60-Gbe-07538:25 Lipid Panel With LDL/HDL Comments: PATIENT WAS FASTINGPERFORMED BY: [facility]6370 [facility] [id number] Ratio LDL/HDL Ratio 1.7 {ratio_units} Range: 0.0-3.2 [...] {uIU/mL} (Normal) Comments: PATIENT WAS FASTINGPERFORMED BY: [facility]6370 [facility] [id number] 8:25 Range: 0.450-4.500 5-Gad-344118:56 CBC W/Diff, Automated Comments: Test performed at:[facility] Nohgxxuujd[address] [place] [address] Absolute Lymph 1.88 {X10_3/ul} (Normal) [...] 4.2-5.4 WBC 6.7 K/mm3 (Normal) Range: 4.4-11.0 6-Rja-265325:56 Comprehensive Metabolic Profil Comments: Test performed at:[facility] Opbaenldes68[address] [place] [address] GAP 8 (Normal) Range: 5-15 CO2 24.0 [...] 7-18 GLU 85 mg/dL (Normal) Range: 70-110 76-Mez-749326:51 MRSA/SAID SCREEN Comments: Test performed at:[facility] Ulrlqncrib18[address] [place], [place] [id number] MRSA+SAID SCRN See Note (Normal) Comments: MRSA/SAID SCRNS. AUREUS S. aureus NegativeMRSA MRSA Negative :32 URINE ALETHEA CULTURE-IDENTIFICATN Comments: PATIENT NOT FASTINGPERFORMED BY: [facility] [place] [address] [id number] Information: [id number] (34911) Result 1 MUG (Normal) Comments: Mixed urogenital rkreh006 Colonies/mL Urine Culture,Comprehensive Final report (Normal) :39 Microscopic Examination Comments: PATIENT WAS FASTINGPERFORMED BY: [facility]6370 [facility] [id number] Bacteria Few (Normal) Mucus Threads Present (Normal) Epithelial Cells (non renal) 0-10 {/hpf} (Normal) Range: 0 - 10 RBC 0-2 {/hpf} (Normal) Range: 0 - 2 WBC 6-10 {/hpf} (Abnormal) Range: 0 - 5 :39 PTT (Activated Partial Comments: PATIENT WAS FASTINGPERFORMED BY: [facility] [place] [address] [id number] Thromboplastin Time) (48886) aPTT 29 {sec} (Normal) Range: 24-33 Comments: This test has not been validated for monitoring unfractionated heparintherapy. aPTT-based therapeutic ranges for unfractionated heparintherapy have not been established. For general guidelines onHeparin monitoring, refer to the [facility] Directory of Services. :39 PT (Prothrobim Time) (85492) Comments: PATIENT WAS FASTINGPERFORMED BY: [facility]6370 [facility] [id number] Prothrombin Time 11.2 {sec} (Normal) Range: 9.1-12.0 INR 1.1 (Normal) Range: 0.8-1.2 Comments: Reference interval is for non-anticoagulated patients. . Suggested INR therapeutic range for Vitamin K anta gonist therapy: Standard Dose (moderate intensity therapeutic range): 2.0 - 3.0 Higher intensity therapeutic range 2.5 - 3.5 :39 TSH (31643) Comments: PATIENT WAS FASTINGPERFORMED BY: ViblioSaint Clare's Hospital at DenvilleSsvpou0376 [facility] [id number] TSH 4.360 {uIU/mL} (Normal) Range: 0.450-4.500 :39 CBC W/AUTO DIFF WBC Comments: PATIENT WAS FASTINGPERFORMED BY: ViblioSaint Clare's Hospital at DenvilleHqecxs0753 [facility] [id number] Information: [id number] (60504) Immature Grans (Abs) 0.0 {x10E3/uL} (Normal) Range: [...] COMPREHENSIVE Comments: PATIENT WAS FASTINGPERFORMED BY: NUBIA [employer] [facility] [id number] (02107) ALT (SGPT) 17 [iU]/L (Normal) Range: 0-32 [...] mg/dL (Normal) Range: 65-99 :39 LIPID PANEL (17600) Comments: PATIENT WAS FASTINGPERFORMED BY: [employer] Corporation RoadDublin [place] [id number] LDL/HDL Ratio 1.8 {ratio_units} (Normal) Range: 0.0-3.2 [...] (Abnormal) Range: 100-199 :39 URINALYSIS, W/ MICRO (91642) Comments: PATIENT WAS FASTINGPERFORMED BY: Axis SemiconductorSinai-Grace Hospital6370 [facility] [id number] Microscopic Examination See below: (Normal) Comments: Microscopic was indicated and was performed. Nitrite, Urine Negative (Normal) Urobilinogen,Semi-Qn 0.2 mg/dL (Normal) Range: 0.0-1.9 Bilirubin Negative (Normal) Occult Blood Negative (Normal) Ketones Negative (Normal) Glucose Negative (Normal) Protein Negative (Normal) WBC Esterase 2+ (Abnormal) Appearance Clear (Normal) Urine-Color Yellow (Normal) pH 6.0 (Normal) Range: 5.0-7.5 Specific [place] 1.016 (Normal) Range: 1.005-1.030 5-Yrd-010974:12 HgA1C , Office (99244) HgA1C , Office 5.9 % (Normal) Range: 4.6 - 7.1 :18 CBC WITH MANUAL DIFF Comments: PATIENT WAS FASTINGPERFORMED BY: [facility]6370 [facility] [id number] Information: [id number] (32200) Immature Grans (Abs) 0.0 {x10E3/uL} (Normal) Range: [...] {x10E3/uL} (Normal) Range: 3.4-10.8 :18 LIPID PANEL (07216) Comments: PATIENT WAS FASTINGPERFORMED BY: LabCoSaint [facility]'s Hospital at DenvilleZckehc8182 [facility] [id number] LDL/HDL Ratio 1.4 {ratio_units} (Normal) Range: 0.0-3.2 [...] PANEL, COMPREHENSIVE Comments: PATIENT WAS FASTINGPERFORMED BY: [facility] [id number] (73315) ALT (SGPT) 17 [iU]/L (Normal) Range: 0-32 [...] CREATININE RATIO Comments: PATIENT WAS FASTINGPERFORMED BY: [facility]6370 [facility] [id number] (16728) AND (20827) Microalb/Creat Ratio 3.6 {mg/g_creat} Range: 0.0-30.0 (Normal) Microalbumin, Urine 4.5 ug/mL (Normal) Range: 0.0-17.0 Creatinine, Urine 123.4 mg/dL (Normal) Range: 15.0-278.0 GGT 22 [iU]/L (Normal) Comments: PATIENT NOT FASTINGPERFORMED BY: [facility]6370 [facility] [id number] :17 Range: 0-60 :17 TSH (92010) Comments: PATIENT NOT FASTINGPERFORMED BY: Axis SemiconductorSinai-Grace Hospital6370 [facility] [id number] TSH 2.730 {uIU/mL} (Normal) Range: 0.450-4.500 :17 CBC WITH MANUAL DIFF Comments: PATIENT NOT FASTINGPERFORMED BY: [facility]6370 [facility] [id number] Information: [id number] (05533) Immature Grans (Abs) 0.0 {x10E3/uL} (Normal) Range: [...] COMPREHENSIVE Comments: PATIENT NOT FASTINGPERFORMED BY: [facility] Afkpfi1243 [facility] [id number] (55951) ALT (SGPT) 18 [iU]/L (Normal) Range: 0-32 [...] mg/dL (Normal) Range: 65-99 :17 LIPID PANEL (33253) Comments: PATIENT NOT FASTINGPERFORMED BY: [employer] Qvpnli4248 [facility] [id number] LDL/HDL Ratio 1.0 {ratio_units} (Normal) Range: 0.0-3.2 LDL Cholesterol Calc 74 mg/dL (Normal) Range: 0-99 VLDL Cholesterol Cas 14 mg/dL (Normal) Range: 5-40 HDL Cholesterol 72 mg/dL (Normal) Comments: According to ATP-III Guidelines, HDL-C >59 mg/dL is considered anegative risk factor for CHD. Triglycerides 68 mg/dL (Normal) Range: 0-149 Cholesterol, Total 160 mg/dL (Normal) Range: 100-199 :17 HgA1C , Office (95468) Comments: PATIENT NOT FASTINGPERFORMED BY: [employer] Lvogff8460 [facility] [id number] Glycohemoglobin (GHb), Total 6.5 % (Normal) Comments: Diabetic Adult <9.0 Healthy Adult 3.9 - 7.3 (DCCT/NGSP) Current ADA guide lines recommend a treatment goal of <7.0% HgbA1c for diabetic patients, which corresponds to a <9.0% Glycohemoglobin result with this method. :36 METABOLIC PANEL, Comments: PATIENT NOT FASTINGPERFORMED BY: [employer] Jddwmt2563 [facility] [id number] Information: [id number] COMPREHENSIVE (70675) ALT (SGPT) 20 [iU]/L (Normal) Range: 0-32 [...] CREATININE RATIO Comments: PATIENT NOT FASTINGPERFORMED BY: Axis SemiconductorCo Gombtn3723 [facility] [id number] (13504) AND (47654) Microalb/Creat Ratio 7.0 {mg/g_creat} (Normal) Range: 0.0-30.0 Microalbumin, Urine 8.3 ug/mL (Normal) Range: 0.0-17.0 Creatinine, Urine 118.0 mg/dL (Normal) Range: 15.0-278.0 :36 TSH (59754) Comments: PATIENT NOT FASTINGPERFORMED BY: [facility] Tmfbqk1549 [facility] [id number] TSH 0.516 {uIU/mL} (Normal) Range: 0.450-4.500 :36 LIPID PANEL (20352) Comments: PATIENT NOT FASTINGPERFORMED BY: [facility]Co Opndpz6930 [facility] [id number] LDL/HDL Ratio 1.0 {ratio_units} (Normal) Range: 0.0-3.2 LDL Cholesterol Calc 80 mg/dL (Normal) Range: 0-99 VLDL Cholesterol Cas 8 mg/dL (Normal) Range: 5-40 HDL Cholesterol 77 mg/dL (Normal) Comments: According to ATP-III Guidelines, HDL-C >59 mg/dL is considered anegative risk factor for CHD. Cholesterol, Total 165 mg/dL (Normal) Range: 100-199 Triglycerides 40 mg/dL (Normal) Range: 0-149 :09 HgA1C , Office (05946) HgA1C , Office 5.8 % (Normal) Range: 4.6 - 7.1 :22 Vitamin D Hydroxy (25117) Comments: PATIENT WAS FASTINGPERFORMED BY: LabCoSaint Clare's Hospital at DenvilleIpbwgn3891 [facility] [id number] Vitamin D, 25-Hydroxy 63.6 ng/mL (Normal) Range: 30.0-100.0 Comments: Vitamin D deficiency has been defined by the Fletcher ofUniversity Hospitals Samaritan Medical Centercine and an Endocrine Society practice guideline as alevel of serum 25-OH vitamin D less than 20 ng/mL (1,2).The Endocrine Society went on to further define vitamin Dinsufficiency as a level between 21 and 29 ng/mL (2).1. IOM (Fletcher of Medicine). 2010. Dietary reference intakes for calcium and D. [place]: The National Academies Press.2. Candace MF, Ronak NC, Andrew OCONNELL, et al. Evaluation, treatment, and prevention of vitamin D deficiency: an Endocrine Society clinical practice guideline. JCEM. 2010; 96(7):1911-30. :22 CBC WITH MANUAL DIFF Comments: PATIENT WAS FASTINGPERFORMED BY: [facility]Co Nmypmh0445 [facility] [id number] Information: [id number] (77132) Immature Grans (Abs) 0.0 {x10E3/uL} (Normal) Range: [...] WAS FASTINGPERFORMED BY: LabCoSaint Clare's Hospital at DenvilleVpuyjr8375 [facility] [id number] (34760) ALT (SGPT) 22 [iU]/L (Normal) Range: 0-32 [...] Glucose, Serum 93 mg/dL (Normal) Range: 65-99 65-Yro-33001:22 LIPID PANEL (33143) Comments: PATIENT WAS FASTINGPERFORMED BY: LabCoSaint Clare's Hospital at DenvilleNtfelr7968 [facility] [id number] LDL/HDL Ratio 1.0 {ratio_units} (Normal) Range: 0.0-3.2 LDL Cholesterol Calc 63 mg/dL (Normal) Range: 0-99 VLDL Cholesterol Cas 16 mg/dL (Normal) Range: 5-40 Cholesterol, Total 141 mg/dL (Normal) Range: 100-199 HDL Cholesterol 62 mg/dL (Normal) Comments: According to ATP-III Guidelines, HDL-C >59 mg/dL is considered anegative risk factor for CHD. Triglycerides 81 mg/dL (Normal) Range: 0-149 33-Qbl-06734:48 HgA1C , Office (33576) HgA1C , Office 5.6 % (Normal) Range: 4.6 - 7.1 16-Rll-413297:00 DEXA BONE DENSITY STUDY (HP) Radiology Report [...] Victor M.D.August 09, 2012 at 11:04:35 AM [id number] Signed GP/GP If you are the referring physici an and would like to consult with theradiologist who provided this interpretation, please contact Marty Murphy at [phone]. If this radiologist is unavailable, youwill be directed to anot her radiologist to assist. If you are a patient with a question regarding this report, pleasecontactyour referring physician directly. Professional Interpretation Provided By: [facility], Phone , These documents contain legally protected [...] on 1110 Sign by: Blaine Victor MD 96-Pxs-03002:18 CBC WITH MANUAL DIFF Comments: PATIENT WAS FASTINGPERFORMED BY: [facility]6370 [facility] [id number] Information: [id number] (30434) Immature Grans (Abs) 0.0 {x10E3/uL} (Normal) Range: [...] 3.77-5.28 WBC 11.6 {x10E3/uL} (Abnormal) Range: 4.0-10.5 35-Ebl-05133:18 METABOLIC PANEL, COMPREHENSIVE Comments: PATIENT WAS FASTINGPERFORMED BY: LabCoSaint Clare's Hospital at DenvilleRroedm0012 [facility] [id number] (49816) ALT (SGPT) 21 [iU]/L (Normal) Range: 0-32 [...] mg/dL (Normal) Range: 65-99 :18 LIPID PANEL (92762) Comments: PATIENT WAS FASTINGPERFORMED BY: [facility] [id number] LDL/HDL Ratio 1.2 {ratio_units} (Normal) Range: 0.0-3.2 LDL Cholesterol Calc 78 mg/dL (Normal) Range: 0-99 VLDL Cholesterol Cas 13 mg/dL (Normal) Range: 5-40 HDL Cholesterol 65 mg/dL (Normal) Comments: According to ATP-III Guidelines, HDL-C >59 mg/dL is considered anegative risk factor for CHD. Cholesterol, Total 156 mg/dL (Normal) Range: 100-199 Triglycerides 66 mg/dL (Normal) Range: 0-149 :18 Vitamin D Hydroxy (93257) Comments: PATIENT WAS FASTINGPERFORMED BY: [employer]70 [facility] [id number] Vitamin D, 25-Hydroxy 38.5 ng/mL (Normal) Range: 30.0-100.0 Comments: Vitamin D deficiency has been defined by the Fletcher ofMedicine and an Endocrine Society practice guideline as alevel of serum 25-OH vitamin D less than 20 ng/mL (1,2).The Endocrine Society went on to further define vitamin Dinsufficiency as a level between 21 and 29 ng/mL (2).1. IOM (Fletcher of Medicine). 2010. Dietary reference intakes for calcium and D. [place]: The National Academies Press.2. Candace WEISS, Ronak CARRASCO, Andrew OCONNELL, et al. Evaluation, treatment, and prevention of vitamin D deficiency: an Endocrine Society clinical practice guideline. JCEM. 2010; 96(7):8520-30. :40 HgA1C , Office (88219) HgA1C , Office 5.9 % (Normal) Range: 4.6 - 7.1 :55 CBC WITH MANUAL DIFF Comments: PATIENT WAS FASTINGPERFORMED BY: [facility]6370 [facility] [id number] Information: [id number] (82986) Immature Grans (Abs) 0.0 {x10E3/uL} (Normal) Range: [...] PANEL, COMPREHENSIVE Comments: PATIENT WAS FASTINGPERFORMED BY: [employer]70 [facility] [id number] (20805) ALT (SGPT) 17 [iU]/L (Normal) Range: 0-32 [...] mg/dL (Abnormal) Range: 65-99 :55 LIPID PANEL (71119) Comments: PATIENT WAS FASTINGPERFORMED BY: [employer]6370 [facility] [id number] LDL/HDL Ratio 1.6 {ratio_units} (Normal) Range: 0.0-3.2 LDL Cholesterol Calc 111 mg/dL (Abnormal) Range: 0-99 VLDL Cholesterol Cas 11 mg/dL (Normal) Range: 5-40 HDL Cholesterol 68 mg/dL (Normal) Comments: According to ATP-III Guidelines, HDL-C >59 mg/dL is considered anegative risk factor for CHD. Triglycerides 54 mg/dL (Normal) Range: 0-149 Cholesterol, Total 190 mg/dL (Normal) Range: 100-199 01-Hoc-342310:22 TSH (20449) Comments: PATIENT NOT FASTINGPERFORMED BY: LabCoSaint Clare's Hospital at DenvilleCexfye9817 [facility] [id number] Information: [id number] TSH 2.500 {uIU/mL} (Normal) Range: 0.450-4.500 17-Vyf-528874:24 BILAT SCRN DIGITAL & CAD Radiology Report [...] to the patient by the [facility] within 30 days. Approximately 10% of breast cancers are not detected by mammography. Anormal mammogram should not delay biopsy of a clinically suspiciousabnormality. Signed:Brooks MarkMarch 05, 2012 at 2:48:08 PM [phone] Signed GP/GP If you are the referring physician and would like to consult with theradiologist who provided this interpretation, please co keenan Murphy M.D. at [phone]. If this radiologist is unavailable, youwill be directed to another radiologist to assist. If you are a patient with a question regarding this report, maribel avelar referring physician directly. Professional Interpretation Provided By: [facility], Phone , These documents contain legally protected [...] 03/05/12 1453 Sign by: Blaine Victor MD 88-Pwf-95718:43 LIPID PANEL (99371) Comments: PATIENT WAS FASTINGPERFORMED BY: [employer]70 [facility] HospitalTeleborderSelect Specialty [facility] [id number] LDL/HDL Ratio 2.0 {ratio_units} (Normal) Range: 0.0-3.2 LDL Cholesterol Calc 139 mg/dL (Abnormal) Range: 0-99 VLDL Cholesterol Cas 11 mg/dL (Normal) Range: 5-40 HDL Cholesterol 71 mg/dL (Normal) Comments: According to ATP-III Guidelines, HDL-C >59 mg/dL is considered anegative risk factor for CHD. Triglycerides 56 mg/dL (Normal) Range: 0-149 Cholesterol, Total 221 mg/dL (Abnormal) Range: 100-199 20-Dia-86817:43 TSH (58312) Comments: PATIENT WAS FASTINGPERFORMED BY: [facility]6370 [facility] [id number] TSH 5.020 {uIU/mL} (Abnormal) Range: 0.450-4.500 :43 METABOLIC PANEL, Comments: PATIENT WAS FASTINGPERFORMED BY: [employer] Zjugnt3485 [facility] [id number] Information: [id number] COMPREHENSIVE (87978) ALT (SGPT) 14 [iU]/L (Normal) Range: 0-32 [...] mg/dL (Normal) Range: 65-99 :32 LIPID PANEL (37723) Comments: PATIENT WAS FASTINGPERFORMED BY: Axis SemiconductorSinai-Grace Hospital6370 [facility] [id number] LDL/HDL Ratio 1.4 {ratio_units} (Normal) Range: 0.0-3.2 [...] 100-199 Comments: Please note reference interval change 20-Iro-65716:32 METABOLIC PANEL, Comments: PATIENT WAS FASTINGPERFORMED BY: LabCoSaint Clare's Hospital at DenvilleBkgerg9359 [facility] [id number] Information: [id number] COMPREHENSIVE (45507) ALT (SGPT) 19 [iU]/L (Normal) Range: 0-40 [...] Glucose, Serum 96 mg/dL (Normal) Range: 65-99 92-Jxr-18989:32 TSH (21403) Comments: PATIENT WAS FASTINGPERFORMED BY: [facility]Co Ezddcf0874 [facility] [id number] TSH 1.700 {uIU/mL} (Normal) Range: 0.450-4.500 84-Bpf-641045:30 PET/CT TUMOR,BASE-THIGH,INIT Radiology Report See Note (Normal) [...] EDTElectronically Signed RB/TOMA Professional Interpretation Provided By: [facility], , To consult with a radiologist regarding this report, please call our [id number] line @ Dictated on 09/26/11 1141 by Carlin Ahuja DO scribed on 09/29/11 1350 by ITS IMPORTSign by Gordy Ahuja DO on 09/29/11 1351 Sign by: Gordy Ahuja DO 38-Han-59527:28 CHEST WITH CONTRAST Radiology Report See Note [...] Lor d PF/PF Professional Interpretation Provided By: [facility], , To consult with a radiologist regarding this report, please call our [id number] t line @ Dictated on 09/09/11 0951 by Adalid Rich MDTranscribed on 09/09/111801 by ITS IMPORTSign by Adalid Rich MD on 09/09/111802 Sign by: Adalid Rich MD 28-Mxv-33229:15 CBC WITH MANUAL DIFF Comments: PATIENT WAS FASTINGPERFORMED BY: LabS[facility]6370 [facility] [id number] Information: [id number] (39012) Hematology Comments: Note: (Normal) Comments: Verified by [...] 3.80-5.10 WBC 8.0 {x10E3/uL} (Normal) Range: 4.0-10.5 72-Njt-50324:15 METABOLIC PANEL, COMPREHENSIVE Comments: PATIENT WAS FASTINGPERFORMED BY: LabCoSaint Clare's Hospital at DenvilleNwursv7702 [facility] [id number] (56288) ALT (SGPT) 18 [iU]/L (Normal) Range: 0-40 [...] mg/dL (Normal) Range: 65-99 :15 LIPID PANEL (11349) Comments: PATIENT WAS FASTINGPERFORMED BY: LabCoSaint Clare's Hospital at DenvilleGwrzkg1229 [facility] [id number] LDL/HDL Ratio 1.1 {ratio_units} (Normal) Range: 0.0-3.2 [...] Signed GP/GP Professional Interpretation Provid ed By: [facility]iology[facility], , To consult with a radiologist regarding this report, please call our 18W0aqiwplx line @ Dictated on 15/04 0942 by Valente REDMOND,Joniranscribed on 08/15/11 1148 by ITS IMPORTSign by Blaine Victor MD on 08/15/11 1149 Sign by: Blaine Victor MD 03-Ygv-287211:19 TSH (64555) Comments: 4 weeks; PATIENT NOT FASTINGPERFORMED BY: LabCoSaint Clare's Hospital at DenvilleZhantn7184 [facility] [id number] Information: [id number] TSH 2.700 {uIU/mL} (Normal) Range: 0.450-4.500 00-Otc-31779:23 MYOCARD PERF STRESS/REST MULT Radiology Report See [...] patient was injected with 31.8 mCi of Vw85dBeeuzyztym and subsequently stress SPECT Cardiolite nuclear imaging [...] 07/15/11 1902 Sign by: Luther Quintero MD 19-Cpz-264181:27 CHEST, PA AND LATERAL Radiology Report See [...] radiologist regarding this report, please call our 03W9tjcsyyz line @ [phone] Dictated on 07/13/11 1338 by Valente REDMOND,BenoitrieleTranscribed on 07/14/11 1316 by ITS IMPORTSign by Valente REDMOND,Blaine on 07/14/11 131 Sign by: Blaine Victor MD 60-Vkm-59944:00 BRAIN W/WO CONTRAST Radiology Report See Note [...] radiologist regarding this report, please call our 82T2vplqlel line @ Dictated on 07/13/11 0000 by Sanket REDMOND,OmarTrans cribed on 07/13/111739 by ITS IMPORTSign by Sanket REDMOND,Omar on 07/13/111740 Sign by: Sanekt REDMOND,Omar 14-Owi-909893:47 CBCMD RBCM NORM C+C {NORMAL} (Normal) PE [...] NEGATIVE 0.06 - 0.[address] > OR = 0.[address] :47 TSH 4.84 {uIU/mL} (Abnormal) Range: 0.358-3.74 :48 LIPID PANEL (58528) Comments: PATIENT WAS FASTINGPERFORMED BY: SCHADSaint Clare's Hospital at DenvilleUmhkzd3877 [facility] [id number] LDL/HDL Ratio 1.1 {ratio_units} (Normal) Range: 0.0-3.2 [...] METABOLIC PANEL, Comments: PATIENT WAS FASTINGPERFORMED BY: [employer] Zotkic3625 [facility] [id number] Information: [id number] COMPREHENSIVE (25759) ALT (SGPT) 20 [iU]/L (Normal) Range: 0-40 [...] Glucose, Serum 95 mg/dL (Normal) Range: 65-99 03-Iev-187028:48 Vitamin D Hydroxy (05182) Comments: PATIENT WAS FASTINGPERFORMED BY: [facility] TechnologiesKn[facility] Hospital [id number] Vitamin D, 25-Hydroxy 46.9 ng/mL (Normal) Range: 30.0-100.0 Comments: Vitamin D deficiency has been defined by the Fletcher ofMedicine and an Endocrine Society practice guideline as alevel of serum 25-OH vitamin D less than 20 ng/mL (1,2).The Endocrine Society went on to further define vitamin Dinsufficiency as a level between 21 and 29 ng/mL (2).1. IOM (Fletcher of Medicine). 2010. Dietary reference intakes for calcium and D. [place]: The National Academies Press.2. Candace MF, Ronak [place], Andrew OCONNELL, et al. Evaluation, treatment, and prevention of vitamin D deficiency: an Endocrine Society clinical practice guideline. JCEM. 2010; 96(7): 1911-30. .Effective June 20, 2011, Vitamin D, 25 Hydroxy specimen requirements will change to serum only. 33-Pmd-292167:02 METABOLIC PANEL, Comments: PATIENT NOT FASTINGPERFORMED BY: RiskIQ63STAT-DiagnosticaSelect Specialty Hospital [facility] [id number] Information: [id number] COMPREHENSIVE (86358) ALT (SGPT) 22 [iU]/L (Normal) Range: 0-40 [...] Glucose, Serum 105 mg/dL (Abnormal) Range: 65-99 38-Ziq-79665:00 BILAT SCRN DIGITAL & CAD Radiology Report [...] 03/02/11 1548 Sign by: Blaine Victor MD 90-Qse-765648:24 GALLBLADDER Radiology Report See Note (Normal) Comments: [...] size of the right kidney. The right xsgcmntsrnvowo11.4 cm. Normal cici l cortex. The right cortex measures 1.4cm Thereisno demonstrated renal mass or cyst. There are no demonstrated renalcalculi. There is no hydronephrosis. There is no ascites. IMPRESSION:Findings i n keeping with choledocho lithiasis. Dictated on 03/01/11918 by Valente REDMOND,BenoitrieleTranscribed on 03/02/11921 by ITS IMPORTSign by Blaine Victor MD on 03/02/11921 Sign by: Blaine Victor MD 74-Hxc-844081:14 HEPATITIS C ANTIBODY (16556) Comments: PATIENT NOT FASTINGPERFORMED BY: [employer]6370 [facility] [id number] HCV Ab <0.1 {s/co_ratio} (Normal) Range: 0.0-0.9 Comments: NegativeNot infected with HCV, unless recent infection is suspected or otherevidence exists to indicate HCV infection. 24-Ryn-462738:14 METABOLIC PANEL, Comments: PATIENT NOT FASTINGPERFORMED BY: [employer]6370 [facility] [id number] Information: [id number] COMPREHENSIVE (48843) ALT (SGPT) 157 [iU]/L (Abnormal) Range: 0-40 [...] Microscopic Examination Comments: PATIENT WAS FASTINGPERFORMED BY: [facility]6370 [facility] [id number] Bacteria Few (Normal) Mucus Threads Present (Normal) Epithelial Cells (non renal) 0-10 {/hpf} (Normal) Range: 0 - 10 RBC 0-3 {/hpf} (Normal) Range: 0 - 3 WBC 0-5 {/hpf} (Normal) Range: 0 - 5 6-Dat-900242:23 DEXA BONE DENSITY STUDY (HP) Radiology Report [...] Sign by: Blaine Victor MD :47 TSH (04516) Comments: PATIENT WAS FASTINGPERFORMED BY: [employer] [facility] Ufedqe9795 [facility] [id number] TSH 2.270 {uIU/mL} (Normal) Range: 0.450-4.500 :47 URINALYSIS, W/ MICRO (76980) Comments: PATIENT WAS FASTINGPERFORMED BY: [employer] [facility] Uqsuds2159 [facility] [id number] Microscopic Examination See below: (Normal) Nitrite, Urine Negative (Normal) Urobilinogen,Semi-Qn 0.2 mg/dL (Normal) Range: 0.0-1.9 Bilirubin Negative (Normal) Occult Blood Negative (Normal) Ketones Negative (Normal) Glucose Negative (Normal) Protein Negative (Normal) WBC Esterase Trace (Abnormal) Appearance Clear (Normal) Urine-Color Yellow (Normal) pH 7.0 (Normal) Range: 5.0-7.5 Specific [place] 1.021 (Normal) Range: 1.005-1.030 :47 CBC WITH MANUAL DIFF (09527) Comments: PATIENT WAS FASTINGPERFORMED BY: LabCoSaint Clare's Hospital at DenvilleEpyqew2014 [facility] [id number] Immature Grans (Abs) 0.0 {x10E3/uL} (Normal) Range: [...] COMPREHENSIVE Comments: PATIENT WAS FASTINGPERFORMED BY: LabCo Evfrjg6814 [facility] [id number] (40547) ALT (SGPT) 22 [iU]/L (Normal) Range: 0-40 [...] (Normal) Range: 65-99 :47 Vitamin D Hydroxy (69164) Comments: PATIENT WAS FASTINGPERFORMED BY: [employer]6370 [facility] [id number] Vitamin D, 25-Hydroxy 44.0 ng/mL (Normal) Range: 32.0-100.0 Comments: Effective March 07, 2011 Vitamin D, 25-Hydroxy reference intervals will be changing to 30-100. .Recent studies consider the lower li phuong of 32.0 ng/mL to be athreshold for optimal health.Ambrosio SAGASTUME. J Nutr. 2004;135(2):317-22. :47 LIPID PANEL (02426) Comments: PATIENT WAS FASTINGPERFORMED BY: [employer]6370 [facility] [id number] LDL Cholesterol Calc 99 mg/dL (Normal) Range: 0-99 LDL/HDL Ratio 1.5 {ratio_units} (Normal) Range: 0.0-3.2 HDL Cholesterol 65 mg/dL (Normal) Comments: According to ATP-III Guidelines, HDL-C >59 mg/dL is considered anegative risk factor for CHD. VLDL Cholesterol Cas 14 mg/dL (Normal) Range: 5-40 Triglycerides 70 mg/dL (Normal) Range: 0-149 Cholesterol, Total 178 mg/dL (Normal) Range: 100-199 54-Ypd-772021:21 HEPATIC FUNCTION PANEL Comments: 2 weeks; PATIENT NOT FASTINGPERFORMED BY: [employer]6370 [facility] [id number] Information: [id number] (42371) ALT (SGPT) 21 [iU]/L (Normal) Range: 0-40 AST (SGOT) 20 [iU]/L (Normal) Range: 0-40 Albumin, Serum 4.2 g/dL (Normal) Range: 3.5-4.8 Alkaline Phosphatase, S 85 [iU]/L (Normal) Range: 25-165 Bilirubin, Direct 0.13 mg/dL (Normal) Range: 0.00-0.40 Bilirubin, Total 0.4 mg/dL (Normal) Range: 0.0-1.2 Protein, Total, Serum 6.8 g/dL (Normal) Range: 6.0-8.5 :06 Microscopic Examination Comments: PATIENT WAS FASTINGPERFORMED BY: Axis SemiconductorSinai-Grace Hospital6370 [facility] [id number] Bacteria None seen (Normal) Mucus Threads Present (Normal) Epithelial Cells (non renal) 0-10 {/hpf} (Normal) Range: 0 - 10 RBC 0-3 {/hpf} (Normal) Range: 0 - 3 WBC 0-5 {/hpf} (Normal) Range: 0 - 5 39-Qag-915259:08 BILAT SCRN DIGITAL & CAD Radiology Report See Note (Normal) Comments: Exam Number: [id number] AMMOGRAPHY - BILATERAL SCREENING INDICATION:Routine annual screening [...] attaching a ResultCode to this exam. ADDENDUM: [id number] HPBI/MDS Reported By: OMAR QUIROGA M.D. :06 Vitamin D Hydroxy (75164) Comments: PATIENT WAS FASTINGPERFORMED BY: [facility] Sdzdah7764 [facility] [id number] Vitamin D, 25-Hydroxy 47.0 ng/mL (Normal) Range: 32.0-100.0 Comments: Recent studies consider the lower limit of 32.0 ng/mL to be athreshold for optimal health.Ambrosio SAGASTUME. J Nutr. 2004;135(2):317-22. :06 URINALYSIS, W/ MICRO (99679) Comments: PATIENT WAS FASTINGPERFORMED BY: NUBIA Axis SemiconductorSinai-Grace Hospital6370 [facility] [id number] Bilirubin Negative (Normal) Microscopic Examination MICRON (Normal) Comments: Microscopic follows if indicated. Microscopic Examination See below: (Normal) Nitrite, Urine Negative (Normal) Urobilinogen,Semi-Qn 0.2 mg/dL (Normal) Range: 0.0-1.9 Glucose Negative (Normal) Ketones Negative (Normal) Occult Blood Negative (Normal) Protein Negative (Normal) Appearance Clear (Normal) pH 6.5 (Normal) Range: 5.0-7.5 Urine-Color Yellow (Normal) WBC Esterase Negative (Normal) Specific [place] 1.024 (Normal) Range: 1.005-1.030 :06 LIPID PANEL (77041) Comments: PATIENT WAS FASTINGPERFORMED BY: ViblioSaint Clare's Hospital at DenvilleUguond8257 [facility] [id number] LDL Cholesterol Calc 84 mg/dL (Normal) Range: [...] MANUAL DIFF Comments: PATIENT WAS FASTINGPERFORMED BY: [facility]6370 [facility] [id number] Information: [id number] ([id number]) Immature Grans (Abs) 0.0 {x10E3/uL} (Normal) Range: [...] WAS FASTINGPERFORMED BY: LabCoSaint Clare's Hospital at DenvilleAmgiug9251 [facility] [id number] (22386) ALT (SGPT) 118 [iU]/L (Abnormal) Range: 0-40 [...] 89 mg/dL (Normal) Range: 65-99 16-Aug-20109:06 TSH ([id number]) Comments: PATIENT WAS FASTINGPERFORMED BY: [employer] LabCoSaint Clare's Hospital at DenvilleRxmcay0576 [facility] [id number] TSH 2.530 {uIU/mL} (Normal) Range: 0.450-4.500 17-Feb-20108:07 HEPATIC FUNCTION PANEL Comments: PATIENT WAS FASTINGPERFORMED BY: [employer] LabCoSaint Clare's Hospital at DenvillePxckup4051 [facility] [id number] Information: [id number] ([id number]) Alkaline Phosphatase, S 77 [iU]/L (Normal) Range: 25-165 ALT (SGPT) 23 [iU]/L (Normal) Range: 0-40 AST (SGOT) 19 [iU]/L (Normal) Range: 0-40 Bilirubin, Direct 0.10 mg/dL (Normal) Range: 0.00-0.40 Albumin, Serum 3.9 g/dL (Normal) Range: 3.5-4.8 Bilirubin, Total 0.3 mg/dL (Normal) Range: 0.0-1.2 Protein, Total, Serum 6.5 g/dL (Normal) Range: 6.0-8.5 3-Nov-54611:07 LIPID PANEL (23227) Comments: PATIENT WAS FASTINGPERFORMED BY: ViblioSaint Clare's Hospital at DenvilleGjjaul4560 [facility] [id number] LDL Cholesterol Calc 92 mg/dL (Normal) Range: [...] MANUAL DIFF Comments: PATIENT WAS FASTINGPERFORMED BY: [employer] Pzriee2335 [facility] [id number] Information: [id number] (52907) Baso (Absolute) 0.1 {x10E3/uL} (Normal) Range: 0.0-0.2 [...] (Normal) Range: 4.0-10.5 :47 Vitamin D Hydroxy (21995) Comments: PATIENT WAS FASTINGPERFORMED BY: [employer] Zbtsml7219 [facility] [id number] Vitamin D, 25-Hydroxy 53.5 ng/mL (Normal) Range: 32.0-100.0 Comments: Recent studies consider the lower limit of 32.0 ng/mL to be athreshold for optimal health.Ambrosio SAGASTUME. J Nutr. 2004;135(2):317-22. :47 TSH (04899) Comments: PATIENT WAS FASTINGPERFORMED BY: [employer]6370 [facility] [id number] TSH 2.280 {uIU/mL} (Normal) Range: 0.450-4.500 :47 LIPID PANEL (07159) Comments: PATIENT WAS FASTINGPERFORMED BY: [employer] Sjouth9284 [facility] [id number] LDL Cholesterol Calc 82 mg/dL (Normal) Range: [...] PANEL, COMPREHENSIVE Comments: PATIENT WAS FASTINGPERFORMED BY: [employer] Pgqtlh2484 [facility] [id number] ([id number]) Alkaline Phosphatase, S 97 [iU]/L (Normal) Range: [...] Glucose, Serum 95 mg/dL (Normal) Range: 65-99 0-Ywg-839632:24 BILAT DIAG DIGITAL & CAD Radiology Report See Note (Normal) Comments: Exam Number: [id number] MAMMOGRAM, BILATERAL DIAGNOSTIC DIGITAL AND CAD HISTORYBilateral [...] mammograms werealso examined with computer-aided detection software (ImageWanderfly, [employer].). Reported By: OMAR QUIROGA M.D. 18-Zbt-449590:28 L/S SPINE,MIN 4 VIEWS (MT) Radiology Report See Note (Normal) Comments: Exam Number: [id number] LUMBOSACRAL SPINE SERIES HISTORYA 73-year-old woman with [...] facetarthritis. Atherosclerosis. Reported By: BEN MULLINS M.D. 53-Zpg-284944:14 METABOLIC PANEL, COMPREHENSIVE Comments: PATIENT NOT FASTINGPERFORMED BY: [facility] Rafjkg1079 [facility] [id number] ([id number]) A/G Ratio 1.7 (Normal) Range: 1.1-2.5 Albumin, [...] Sodium, Serum 143 mmol/L (Normal) Range: 135-145 29-Ufw-220509:14 CBC WITH MANUAL DIFF (13460) Comments: PATIENT NOT FASTINGClinical Information: ADD [id number], [id number] PERFORMED BY: LabCoSaint Clare's Hospital at DenvilleAavzbs2217 [facility] [id number] Baso (Absolute) 0.1 {x10E3/uL} (Normal) Range: 0.0-0.2 [...] Report See Note (Normal) Comments: Exam Number: [id number] MYOCARDIAL PERFUSION SCAN TECHNIQUEThe patient was injected [...] 66%. Reported By: LUTHER QUINTERO M.D. 20-Aug-20089:49 [facility] Radiology Report See Note (Normal) Comments: Exam Number: [id number] MAMMOGRAM, BILATERAL SCREENING DIGITAL AND CAD HISTORYRoutine [...] mammograms werealso examined with computer-aided detection software (ImageTripping.). Reported By: OMAR QUIROGA M.D. :49 DEXA BONE DENSITY STUDY () Radiology Report See Note (Normal) Comments: Exam Number: [id number] BONE DENSITOMETRY HISTORYOsteoporosis. TECHNIQUE Bone densitometry of [...] both hips. Reported By: OMAR QUIROGA M.D. 1-May-73144:34 CBCD,SMEAR DIFF BAND 1 % (Normal) Range: [...] {uIU/mL} (Normal) Range: 0.34-4.82 :34 VIT D,25 72946 41.4 ng/mL (Normal) Range: 32.0-100.0 Comments: Recent studies consider the lower limit of 32.0 ng/mL to attila threshold for optimal health.Ambrosio SAGASTUME. J Nutr. 2004;135(2):317-22.Performed At: C[address] [id number] :45 CBC WITH MANUAL DIFF (48218) Comments: PATIENT WAS FASTINGClinical Information: [id number] PERFORMED BY: [facility] [id number] Baso (Absolute) 0.0 {x10E3/uL} (Normal) Range: 0.0-0.2 [...] PANEL, COMPREHENSIVE Comments: PATIENT WAS FASTINGPERFORMED BY: LabJon [place]ille [id number] [facility] [id number] (81919) A/G Ratio 1.5 (Normal) Range: 1.1-2.5 Albumin, [...] 144 mmol/L (Normal) Range: 135-145 :45 TSH (54628) Comments: PATIENT WAS FASTINGPERFORMED BY: [facility] Bdruzr1505 [facility] [id number] TSH 1.660 {uIU/mL} (Normal) Range: 0.450-4.500 :45 LIPID PANEL (95208) Comments: PATIENT WAS FASTINGPERFORMED BY: [facility] Fqhjmu4769 [facility] [id number] Cholesterol, Total 153 mg/dL (Normal) Range: 100-199 [...] bacterial pneumonia Planned Observations Vitamin D Hydroxy (63946)Indication: Osteoporosis On: 02-Mpo-667232:44 Request CBC W/AUTO DIFF WBC (89959)Indication: Hypertension, benign On: 07-Wav-676564:44 Request METABOLIC PANEL, COMPREHENSIVE (48887)Indication: Hypertension, benign On: 73-Dli-874986:44 Request LIPID PANEL (37586)Indication: Impaired Fasting Glucose On: 06-Iky-721082:43 Request METABOLIC PANEL, COMPREHENSIVE (34066)Indication: Hypertension, benign On: 5-Itg-504434:22 Request METABOLIC PANEL, COMPREHENSIVE (65695)Indication: Hypertension, benign On: 5-Ujy-378648:32 Request NuSwab STD (trich/BV/GC/glen W/ Herpes) (25815)Indication: Vaginal discharge On: 82-Yeo-921699:42 Request MICROALBUMIN: CREATININE RATIO (76220) AND (50148)Indication: Impaired Fasting Glucose On: 56-Trh-431528:35 Request LIPID PANEL (93959)Indication: Other hyperlipidemia On: 42-Blv-288406:35 Request CBC W/AUTO DIFF WBC (63091)Indication: Hypertension, benign On: 59-Fxf-296836:35 Request METABOLIC PANEL, COMPREHENSIVE (57395)Indication: Hypertension, benign On: 61-Eto-366012:35 Request TSH (00501)Indication: Acquired hypothyroidism On: 14-Lzt-243107:35 Request Vitamin D Hydroxy (76050)Indication: Osteoporosis On: 4-Szk-005392:35 Request CBC W/AUTO DIFF WBC (57523)Indication: Colon Polyp On: 7-Qxn-756677:34 Request LIPID PANEL (40027)Indication: Other hyperlipidemia On: 2-Kic-648111:34 Request METABOLIC PANEL, COMPREHENSIVE (83310)Indication: Hypertension, benign On: 8-Bhl-389243:34 Request CBC W/AUTO DIFF WBC (41189)Indication: Epistaxis On: 4-Lcl-422151:36 Request TSH (52692)Indication: Acquired hypothyroidism On: 2-Udo-598664:34 Request METABOLIC PANEL, COMPREHENSIVE (28392)Indication: Hypertension, benign On: :33 Request LIPID PANEL (60679)Indication: Other hyperlipidemia On: 7-Pmi-397746:33 Request CBC with auto diff (41639)Indication: Cramps, extremity On: 1-Rjc-921612:31 Request METABOLIC PANEL, COMPREHENSIVE (21202)Indication: Cramps, extremity On: 0-Mqq-309589:31 Request LIPID PANEL (14642)Indication: Other hyperlipidemia On: 45-Nab-751485:26 Request CBC W/AUTO DIFF WBC (52324)Indication: Hypertension, benign On: 78-Hoi-217929:26 Request METABOLIC PANEL, COMPREHENSIVE (70349)Indication: Impaired Fasting Glucose On: 67-Wxn-198659:26 Request Hemoglobin Glyclated (HGB A1C) (47858)Indication: Impaired Fasting Glucose On: 97-Jdi-809056:26 Request TSH (88994)Indication: Hypertension, benign On: :06 Request ASSAY, TROPONIN, QUANTITATIVE (aka Troponin I) (26414)Indication: Chest pain On: 37-Ycu-452644:25 Request D-Dimer (74635)Indication: Chest pain On: 36-Cbn-246937:25 Request Comments: stat TSH (80355)Indication: Chest pain On: 93-Urr-442081:25 Request CBC WITH MANUAL DIFF (36484)Indication: Chest pain On: 38-Fje-036502:25 Request HEPATIC FUNCTION PANEL (71598)Indication: Other hyperlipidemia On: 20-Wid-013361:24 Request Vitamin D Hydroxy (60736)Indication: Osteoporosis On: 31-Gth-709780:23 Request Planned Encounters Medical; [facility] 3 Month FU - On: 15-May-2018 11:00 [facility] Fast DO, Meli A Fast DO, Meli A Planned Procedures Flu Vaccine (Quadrivalent) On: 06-Feb-2018 Intent 86345Mk: Fast DO, Meli A Comments: Lot #[id number]-L dltd, IMDose prefilled syringegiven by: Gael reviewed and ABN signed Fast DO, Meli A Cartoid DopplerBy: Fast DO, On: 06-Nov-2017 Intent Meli A Fast DO, Meli A MRI OF RIGHT THIGH WITH On: 06-Nov-2017 Intent CONTRAST (72771)By: Rico LOMELI, Comments: growing soft tissue mass right thigh with pain Meli A Fast DO, Meli A ELECTROCARDIOGRAM, COMPLETE On: 17-Jul-2017 Intent (ECG) (81825)By: Rico LOMELI, Comments: ekg showed normal sinus rhythym, normal axis, no acute st/t wave changes irbb Meli A Fast DO, Meli A PNEUM VAC ADLT/IMUMNOSPR, On: 17-Jul-2017 Intent SBC/INTRM (67696)By: Rico LOMELI, Comments: pneumovax prefilled syringe injectionlot: [id number]: 12/27/18L DELT IMpt tolerated wellAD TOY CONSULTANT Meli A Fast DO, Meli A SCREENING DIGITAL On: 22-Mar-2017 Intent TOMOSYNTHESIS OF BREAST Comments: june (63635)By: Fast DO, Meli A Fast DO, Meli A Flu Vaccine (Quadrivalent) On: 16-Jan-2017 Intent 22164Zn: Fast DO, Meli A Comments: Lot:[id number]:07/2017Dose:0.5mLRoute:IMSite:L DltdGiven By:ROSEANNA signed Fast DO, Meli A Echo CompleteBy: Fast DO, On: 16-Dec-2016 Intent Meli A Fast DO, Meli A DEXA SCAN AXIAL SKELETON On: 16-Dec-2016 Intent (43688)By: Fast DO, Meli A Fast DO, Meli A Radiology - Lumbar SpineBy: On: 07-Sep-2016 Intent Fast DO, Meli A Fast DO, Meli A ELECTROCARDIOGRAM, COMPLETE On: 07-Jun-2016 Intent (ECG) (16536)By: Rico DO, Comments: ekg showed normal sinus rhythym, normal axis, no acute st/t wave changes sinus rsr no change Meli A Fast DO, Meli A Cartoid DopplerBy: Fast DO, On: 07-Jun-2016 Intent Meli A Fast DO, Meli A Comments: bilateral ELECTROCARDIOGRAM, COMPLETE On: 26-Feb-2016 Intent (ECG) (12478)By: Rico DO, Comments: no chargeekg- sinus rsr normal axis no acute st/t wave changes Meli A Fast DO, Meli A MAMMOGRAM, SCREENING, BOTH On: 26-Feb-2016 Intent BREAST (25042)By: Fast DO, Meli A Fast DO, Meli A Flu Vaccine (Quadrivalent) On: 05-Feb-2016 Intent 72836Ow: Fast DO, Meli A Comments: InfluenzaLot #Lot [id number]/30/Site-L dltd, IMDose prefilled syringeVIS and ABN signedgiven by:BOBBY canales Fast DO, Meli A Radiology - Chest- PA and On: 04-Dec-2015 Intent LatBy: Fast DO, Meli A Fast Comments: stat DO, Meli A Echo CompleteBy: Fast DO, On: 20-May-2015 Intent Meli A Fast DO, Meli A MAMMOGRAM, SCREENING, BOTH On: 25-Feb-2015 Intent BREAST (46160)By: Rico LOMELI, Comments: andry Edwarda Kwabena Fast DO, Meli A Cartoid DopplerBy: Fast DO, On: 25-Feb-2015 Intent Meli A Fast DO, Meli A Comments: andry DEXA SCAN AXIAL SKELETON On: 21-Oct-2014 Intent (20044)By: Fast DO, Meli A Fast DO, Meli A EKG (88002)By: Rico LOMELI, On: 18-Jun-2014 Intent Meli A Fast DO, Meli A Comments: ekg showed normal sinus rhythym, normal axis, no acute st/t wave changes Prevnar 13 (93671)By: Rico On: 31-Mar-2014 Intent DO, Meli A Fast DO, Meli A Comments: [id number] arm, IMAS Cartoid DopplerBy: Rico DO, On: 31-Mar-2014 Intent Meli A Fast DO, Meli A BILATERAL MAMMOGRAMS On: 31-Mar-2014 Intent (05000)By: Fast DO, Meli A Fast DO, Meli A Eprescribed prescriptions On: 24-Jul-2013 Intent (G8553)By: Fast DO, Meli A Fast DO, Meli A Echo CompleteBy: Fast DO, On: 18-Mar-2013 Intent Meli A Fast DO, Meli A Cartoid DopplerBy: Fast DO, On: 18-Mar-2013 Intent Meli A Fast DO, Meli A MAMMOGRAM, SCREENING, BOTH On: 18-Mar-2013 Intent BREASTS (99067)By: Fast DO, Meli A Fast DO, Meli A Eprescribed prescriptions On: 18-Mar-2013 Intent (G8553)By: Alisson Espinal FLU VAC, SPLIT, >3 YEARS, On: 08-Jan-2013 Intent INTRAMUSC (42379)By: Fabricio, Comments: lot [id number] 2014site/route L dennis, IMamt 0.5mlVIS and ABN signed when applicableChesoy, YUKI Francoise IMMUNIZ ADMNIN, 1 VAC, On: 08-Jan-2013 Intent SNGL/COMBO (76234)By: Francoise Regalado Echo CompleteBy: Fast DO, On: 12-Nov-2012 Intent Meli A Fast DO, Meli A DXA, BONE DENSITY, AXIAL On: 06-Aug-2012 Intent SKELETON (19030)By: Fast DO, Meli A Fast DO, Meli A PNEUM VAC ADLT/IMUMNOSPR, On: 07-May-2012 Intent SBC/INTRM (60494)By: Rico LOMELI, Comments: Lot: [id number]: 97Gvv15Dtt: 0.5mlRoute: IMSite: L deltoidwithout difficulty or c/o voicedGiven by: BOBBY Hernandez Meli A Fast DO, Meli A ADMINISTRATION OF On: 07-May-2012 Intent PNEUMOCOCCAL VACCINE (G0009)By: Fast DO, Meli A Fast DO, Meli A Eprescribed prescriptions On: 07-May-2012 Intent (G8553)By: Alisson Espinal Wax CurettesBy: Ciesa INTERNATIONAL STUDENT ADVISOR, On: 08-Feb-2012 Intent Lilian Villatoro Ear Irrigation (29840)By: On: 08-Feb-2012 Intent Robert CALVILLO Lilian Villatoro Breast Screening - On: 23-Jan-2012 Intent BilateralBy: Fast DO, Meli A Comments: mid nov Fast DO, Meli A FLU VAC, SPLIT, >3 YEARS, On: 23-Jan-2012 Intent INTRAMUSC (97490)By: Kylie, Comments: Lot #[id number]/30/13Site-left deltoidgiven by: BOBBY Salazar ADMINISTRATION OF INFLUENZA [...] 1 month DO, Meli A Pulse Oximetry (76674)By: On: 18-Jul-2011 Intent Alisson Espinal Comments: 92% Radiology - ChestBy: Fast DO, On: 15-Jul-2011 Intent Meli A Fast DO, Meli A Comments: PA & LAT Spirometry (31510)By: Fast On: 11-Jul-2011 Intent DO, Meli A Fast DO, Meli A Comments: good effort and curve normal MRI - BrainBy: Fast DO, Meli On: 11-Jul-2011 Intent A Fast DO, Meli A Comments: attn cerebellum Cartoid DopplerBy: Fast DO, On: 11-Jul-2011 Intent Meli A Fast DO, Meli A EKG (98213)By: Fast DO, On: 11-Jul-2011 Intent Meli A Fast DO, Meli A Comments: ekg showed normal sinus rhythym, normal axis, no acute st/t wave changes Nuclear Stress Test/Stress On: 11-Jul-2011 Intent SPECT/AdenosineBy: Fast DO, Meli A Fast DO, Meli A Radiology - Chest- PA and On: 11-Jul-2011 Intent LatBy: Fast DO, Meli A Fast DO, Meli A Pulse Oximetry (92343)By: On: 11-Jul-2011 Intent Fast DO, Meli A Fast DO, Meli A Ultrasound - GallbladderBy: On: 28-Feb-2011 Intent Fast DO, Meli A Fast DO, Meli A TD Injection , IM (59062)By: On: 28-Feb-2011 Intent Alisson Espinal Comments: 2007 IMMUNIZ ADMNIN, 1 VAC, On: 26-Jan-2011 Intent SNGL/COMBO (38979)By: Masoud Comments: Lot #[id number]-2.12Site-L arm, IMDose prefilledgiven by:BOBBY Heard LPN, Megan L FLU VAC, SPLIT, >3 YEARS, On: 26-Jan-2011 Intent INTRAMUSC (00942)By: Izzy Meredith LPN MAMMOGRAM, SCREENING, BOTH On: 26-Nov-2010 Intent BREASTS (53644)By: Rico DO, Comments: nov Meli A Fast DO, Meli A Echo CompleteBy: Fast DO, On: 26-Nov-2010 Intent Meli A Fast DO, Meli A Spirometry (77143)By: On: 26-Nov-2010 Intent Alisson Espinal Comments: good effort and curve -mild obst DXA, BONE DENSITY, AXIAL On: 26-Nov-2010 Intent SKELETON (98115)By: Rico DO, Comments: nov Meli A Fast DO, Meli A EKG (74957)By: Kylie, On: 18-Aug-2010 Intent Alisson Comments: ekg showed normal sinus rhythym, normal axis, no acute st/t wave changes MAMMOGRAM, SCREENING, BOTH On: 22-Feb-2010 Intent BREASTS (20526)By: Fast DO, Meli A Fast DO, Meli A IMMUNIZ ADMNIN, 1 VAC, On: 25-Jan-2010 Intent SNGL/COMBO (35516)By: Masoud Comments: Lot #[id number]-4/11Site-L DLTD, IMDose 0.5mlgiven by:BOBBY HASSAN LPN, Megan L FLU VAC, SPLIT, >3 YEARS, On: 25-Jan-2010 Intent INTRAMUSC (85910)By: Izzy Meredith LPN Echo CompleteBy: Fast DO, On: 21-Aug-2009 Intent Meli A Fast DO, Meli A Spirometry (37354)By: On: 21-Aug-2009 Intent Alisson Espinal Comments: good effort an dcurve mild obst EKG (99120)By: Kylie, On: 21-Aug-2009 Intent Alisson Comments: ekg- sinus anusha no acute st t wave changes Venous DopplerBy: Fast DO, On: 27-Feb-2009 Intent Meli A Fast DO, Meli A Comments: left leg- today if possible Flu Vaccine, Split IM On: 23-Jan-2009 Intent (10955)By: Breezy ROSALES, Comments: Lot #[id number]-[id number] deltoidgiven by:[facility] Radiology - Lumbar SpineBy: On: 12-Dec-2008 Intent Fast DO, Meli A Fast DO, Meli A Breast Diagnostic - On: 12-Dec-2008 Intent BilateralBy: Fast DO, Meli A Comments: feb Fast DO, Meli A EKG (83799)By: Fast DO, On: 11-Aug-2008 Intent Meli A [...] MAMMOGRAM, SCREENING, BOTH On: 11-Aug-2008 Intent BREASTS (55222)By: Fast DO, Comments: screenign Meli A Fast DO, Meli A DXA, BONE DENSITY, AXIAL On: 11-Aug-2008 Intent SKELETON (79139)By: Fast DO, Meli A Fast DO, Meli [...] The patient does have durable power of shape hand and living will. The patient has noticed nothing from the geriatic depression scale. Other providers contributing to the patient's care are pharmacology associate (Dr. Cruz), surgeon (Dr. Nicholas) and other: [...] didnt like but sugar better- going to [place] in couple weeeks- her breath ing has [...] 3 (jus End: 24-Jun-2016 7:58 t joined [employer]) days per week. Sleeps on average 7 [...] providers contributing to the patient's care are pharmacology associate (anthony) and other: (opthmologist Dr. Ludwig and [...] The patient does have durable power of shape hand and living will. The patient has noticed nothing from the geriatic depression scale. Other providers contributing to the patient's care are gastrologist (quinn), pharmacology associate and other: (opthmologist). , [ADDITIONAL REASON] Well [...] issues: in january [facility]-- she will have area burned- had a tubulovillous adenoma with focal high grade dysplasia- last fall had issues with breahting and had bronchososcopy with biopsy- and couldnt get tube through bronchi so closed shut- had multiple biopsies no diagnosis- they were going to stent the bronchi- at [facility]- but they didnt have a stent- she was on augmentin and prednsione then and felt better - saw sibdarlene again around [facility] as had congestion and sob - went [...] mar - that is already ordered in [place]- then every 6 mos for 3 years [...] [facility] october [address] Cosmo Garvin, [facility] surgeon.-she is not coughingor sob- got biopsy [...] weight up 4 pounds- hasnt been to [facility] routinely because of above- no gerdEncounter Diagnosis: [...] exercise class- she is going to join [employer]- she is getting massage every 3 weeks [...] she is ready to do more- bought [employer] [place] to [place] want tohave it checked- having more trouble [...] [facility] End: 31-Jul-2008 13:11 Payers MedicareAtlantic Rehabilitation Institutea/Supplement Viola BANUELOS; kwabena guarantor
== END 2018-03-13 12:06 | disposition home or self-care (01) ==
PROVIDERS: Emergency Provider Emergency Medicine; Family Provider Internal Medicine; PCP Internal Medicine
DX: S00.03XA Contusion of scalp, initial encounter (principal); S16.1XXA Strain of muscle, fascia and tendon at neck level, initial encounter; S43.402A Unspecified sprain of left shoulder joint, initial encounter; S40.012A Contusion of left shoulder, initial encounter; W00.0XXA Fall on same level due to ice and snow, initial encounter; Y93.9 Activity, unspecified; Y92.9 Unspecified place or not applicable; J44.9 Chronic obstructive pulmonary disease, unspecified; I12.9 Hypertensive chronic kidney disease with stage 1 through stage 4 chronic kidney disease, or unspecified chronic kidney disease; N18.9 Chronic kidney disease, unspecified; E03.9 Hypothyroidism, unspecified; Z85.118 Personal history of other malignant neoplasm of bronchus and lung; Z90.49 Acquired absence of other specified parts of digestive tract; Z79.899 Other long term (current) drug therapy
CPT/HCPCS: 70450; 72125; 73030; 99282

== ENCOUNTER → 2018-03-16 11:47 | Outpatient (CLI) | payer MEDICARE, OTHER, SELFPAY ==
[2018-03-13 09:15] VITALS: BMI 29.8
--- NOTE | 2018-03-16 10:22 | RAD_ITS ---
STUDY: X-RAY CHEST REASON FOR EXAM: Female, 82 years old. Chest pain and shortness of breath. History of recent fall. TECHNIQUE: PA and lateral views of the chest. COMPARISON: Comparison is made with prior study dated December 04, 2015. FINDINGS: Stable pleural parenchymal changes at the right lung base suggestive of a right basilar scarring and pleural scarring. Stable mild degree of increased linear markings in the right middle lobe. There is no demonstrated pleural abnormality. Normal size heart. Normal mediastinum and jolynn. Normal visualized pulmonary arteries. There is atherosclerotic calcification of the aortic arch with tortuosity. There is demineralization of the osseous structures. Normal visualized ribs, clavicles, and shoulders. There is no demonstrated abnormality of the visualized soft tissue structures of the upper abdomen. RAD/Chest PA and Lateral IMPRESSION: Stable pleural parenchymal changes at the right lung base. Electronically Signed: Blaine Victor MD at 10:57 EST Tel [phone], Service support ,
--- NOTE | 2018-03-16 10:24 | RAD_ITS ---
STUDY: X-RAY - LEFT HUMERUS REASON FOR EXAM: Female, 82 years old. Midposterior humerus pain following a fall. TECHNIQUE: 2 view(s) of the humerus. COMPARISON: None. FINDINGS: Normal visualized humerus. There is no demonstrated fracture or osseous destructive process. Degenerative changes at the level of the elbow joint. There is no demonstrated soft tissue abnormality. RAD/Humerus min 2 Views IMPRESSION: Normal x-ray examination of the humerus. Electronically Signed: Blaine Victor MD at 10:55 EST Tel [phone], Service support ,
[2018-03-16 10:52] LABS: Absolute Lymphocyte Count 1.08 X10^3/ul (0.83-4.51); Absolute Neutrophil Count 5.7 X10^3/uL (2.0-7.7); Basophil# 0.06 X10^3/uL; Basophil% 0.7 % (0-1); Eosinophil# 0.63 X10^3/uL; Eosinophils% 7.7 % (0-5); Hematocrit 43.4 % (37-47); Hemoglobin 14.4 g/dl (12.0-15.0); Lymphocyte # 1.08 X10^3/ul (4.0); Lymphocyte % 13.1 % (19-41); Mean Corp Hgb Conc 33.2 g/gl (32-36); Mean Corpuscular Hgb 30.9 pg (27.0-32.0); Mean Corpuscular Volume 93.1 fL (81-99); Mean Platelet Vol. 11.8 fl (6.2-12.0); Monocyte# 0.73 X10^3/uL; Monocyte% 8.9 % (0-10); Neutrophil # 5.69 X10^3/uL (2.7-7.7); Neutrophil % 69.2 % (47-70); Platelet Count 184 K/mm3 (150-450); RBC Distribution Width CV 14.6 % (11.6-14.6); RBC Distribution Width SD 48.2 fl (35.1-43.9); Red Blood Count 4.66 M/mm3 (4.2-5.4); White Blood Count 8.2 K/mm3 (4.4-11.0)
[2018-03-16 10:54] LABS: POSITIVE COUNT NO; POSITIVE DIFFERENTIAL NO; POSITIVE MORPHOLOGY NO
[2018-03-16 11:02] LABS: AST(SGOT) 18 U/L (15-37); Alanine Aminotransfer ALT/SGPT 23 U/L (13-56); Albumin, Serum 3.4 g/dL (3.2-5.0); Alkaline Phosphatase 101 U/L (45-117); Anion Gap 9 (5-15); BUN 13 mg/dL (7-18); BUN/Creat Ratio 17.5 RATIO (10-20); Calcium,Total 9.1 mg/dL (8.5-10.1); Chloride 107 mmol/L (98-107); Creatinine, Serum 0.74 mg/dL (0.55-1.02); D-Dimer Quantitative (DVT/PE) 2.06 FEU/ug/m (0.27-0.49); EST Glomerular Filtration Rate 79 mL/min (>60); Est Glom Filt Rate - Afr Amer 96 mL/min (>60); Globulin 3.4 g/dL (2.2-4.2); Glucose 100 mg/dL (74-106); Protein, Total 6.8 g/dL (6.4-8.2); Sodium Level 141 mmol/L (136-145)
--- NOTE | 2018-03-16 11:58 | CT_ITS ---
STUDY: CTA CHEST REASON FOR EXAM: Female, 82 years old. Elevated d-dimer. History of lung cancer. RADIATION DOSAGE (If Supplied By Facility): CTDIvol = ( 19.57 ) mGy, DLP = ( 519.19 ) mGycm TECHNIQUE: The examination was performed with the intravenous administration of 100 ml of Isovue 370 contrast material. Post-processing of the angiographic images was performed, with multiplanar reformation and 3D reconstruction. Individualized dose optimization techniques were used for this CT. COMPARISON: Comparison is made with prior study dated April 03, 2017. FINDINGS: Normal enhancement of the main pulmonary artery and right and left pulmonary arteries. Normal enhancement of the bilateral peripheral pulmonary arteries. There is no demonstrated pulmonary embolism. There is atherosclerotic calcification of the aortic arch with tortuosity. There is no demonstrated aortic dissection. There are calcifications of the coronary arteries. There are visualized mediastinal lymph nodes, which are within normal size limits, and with normal morphology. Small left hilar lymph node. Normal visualized trachea and bronchi. The patient is status post partial right upper lobectomy. Stable elevation of the right hemidiaphragm. Emphysematous changes with bullous formation worse in the right upper lobe. Subpleural blebs are also seen in the lower lobes. There now is evidence of a 1.2 cm x 0.8 cm x 0.9 cm spiculated nodule in the right upper lobe as seen on axial image #140 and coronal image #143. Normal pleura. Normal chest wall structures. There are degenerative changes of thoracic spine. There is a 2.3 cm x 3.1 cm cyst in the anterior aspect of the right kidney. CT/CTA Chest W/WO Contrast IMPRESSION: There is no evidence of pulmonary embolism. Emphysematous changes worse in the upper lobes. 1.2 cm x 0.8 cm x 0.9 cm cystic nodule in the right upper lobe. Follow-up is recommended. Electronically Signed: Blaine Victor MD at 12:44 EST Tel [phone], Service support ,
--- OUTSIDE RECORDS SUMMARY | 2018-05-11 10:52 | XMS RPT_ITS ---
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 REPOSITORY [facility] Imaging Services [address] [place] [address] PET/CT Tumor Base -Thigh Init MR#: [id number] Acct: [id number] Name: MYRNA BA Rep #: [id number] : 1935 F 82 From: Gordy Ahuja DO PCP: Meli Gómez DO Status: REG CLI Study: PET/CT Tumor Base -Thigh Init Date of Exam: 04/02/18 Exam# [id number] Ordering Dr: Meli Gómez DO EXAMINATION: FDG PET CT INDICATIONS: An 82-year-old female with history of carcinoma of the lung presenting for restaging examination and evaluation of pulmonary nodularity. COMPARISON EXAMINATION: CTA of the chest report dated 03/16/18, previous FDG PET study report dated 05/20/13. INDEX LESION SIZE SUV INTERPRETATION NEW: Left scapula, third thoracic vertebra 3.1 (max) Fulfills quantitative criteria for viable osseous neoplasm. TECHNIQUE: Following the intravenous administration of 15.1 mCi of F-18 deoxyglucose via the right hand, multiplanar image acquisitions of the neck, chest, abdomen and pelvis to level of mid thigh, obtained at one hour post radiopharmaceutical administration contemporaneously interpreted with the current CT of the neck, chest, abdomen and pelvis to level of mid thigh, dated 04/02/18 via coregistration and CTA of the chest report dated 03/16/18, previous FDG PET study report dated 05/20/13 reveal: SERUM GLUCOSE LEVEL: 90 mg/dl. HEIGHT: 62 inches. WEIGHT: 162 lbs. FINDINGS: 1. Asymmetric increased glucose concentration is defined in the left mid posterolateral chest wall contiguous to the scapula and third thoracic vertebra. The calculated maximum standard uptake value is 3.1. 2. Normal physiologic distribution of the radiopharmaceutical is apparent in the hepatic (3.1) and splenic parenchyma, both renal units, bladder and visualized intestinal tract. There is uniform distribution of the radiopharmaceutical concentration defined in the visualized cerebellar hemispheres and cerebral cortical structures.? Diffuse intestinal tract activity is noted throughout all four quadrants of the abdominal-pelvic retroperitoneum, mesentery consistent with normal physiologic distribution of the radiopharmaceutical most accentuated in the right upper pelvic mesentery contiguous to the proximal ascending colon. Increased glucose concentration is observed in the descending thoracic aorta. Pertinent CT findings are as follows. CHEST: Coronary arterial calcification is observed. Atherosclerotic calcification is defined in the thoracic aorta without evidence of dilatation, aneurysm formation. Bilateral axillary and scattered calcified and noncalcified mediastinal and thoracic perihilar soft tissue densities are non-glucose avid. Emphysematous change is noted in the bilateral upper lung zones. A parenchymal density defined in the right mid lateral hemithorax pulmonary parenchyma, right upper lobe demonstrates no evidence of increased glucose metabolism. ABDOMEN AND PELVIS: Atherosclerotic calcification is defined in the abdominal aorta without evidence of dilatation, aneurysm formation. Abdominal-pelvic arterial calcification is observed. Right- left inguinal soft tissue densities are ametabolic. The gallbladder is not clearly identified. SKELETAL: Degenerative changes defined in the cervical, thoracic and lumbar spine demonstrate no evidence for glucose hypermetabolism. PET/PET/CT Tumor Base -Thigh Init IMPRESSION: 1. Facilitated glucose concentration observed in the third thoracic vertebra and left scapula fulfills quantitative criteria for viable osseous neoplasm. (Yasmin et al, Clinical Nuclear Medicine 29:161, 2004). 2. Anatomic stability may be ensured in the nonglucose avid right upper hemithorax parenchymal-right upper lobe density with repeat CT of the thorax in six months. (Rafat, Seminars in Thoracic and Cardiovascular Surgery 14:292, 2002). 3. Prominent glucose concentration observed in the right upper pelvic mesentery contiguous to the proximal ascending colon may be further investigated with CT of the abdomen and pelvis with oral and intravenous contrast if intraluminal soft tissue mass formation is suspected. (Docornelio et al, Journal of Nuclear Medicine, 30:S276, 2003). 4. Enhanced glucose concentration observed in the descending thoracic aorta is commensurate with activated leukocytes associated with atherosclerotic plaque formation. (Jeanette et al, Clinical Nuclear Medicine 29:93, 2004). 5. 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 Electronic Signature Gordy Ahuja D.O. Electronically Signed: Gordy Ahuja DO at 22:07 EST Tel , Service support , CC: Meli Gómez DO Garbage Truck Driver: Signed CTA CHEST W/WO Observed: 03/16/2018 Status: F Source: ROBIN CONTRAST 11:[address] [facility] REPOSITORY [facility] Imaging Services [address] [place] [address] CTA Chest W/WO Contrast MR#: [id number] Acct: [id number] Name: MYRNA BA Rep #: [id number] : 1935 F 82 From: Blaine Victor MD PCP: Meli Gómez DO Status: REG CLI Study: CTA Chest W/WO Contrast Date of Exam: 03/16/18 Exam# [id number] Ordering Dr: Meli Gómez DO STUDY: CTA [...] Blaine Victor MD at 12:44 EST Tel [phone], Service support , CC: Meli Gómez DO Garbage Truck Driver: Signed CBC W/DIFF, AUTOMATED Collected: 03/16/2018 Status: F Source: ROBIN 10:[address] [facility] REPOSITORY TYPE CODE TESTS RESULT OUT OF [...] Lymph 1.08 Performed By: #### L100.0100 #### [facility] [address] [place], [place], [address] D-DIMER QUANTITATIVE Collected: 03/16/2018 Status: F Source: ROBIN (DVT/PE) 10:[address] [facility] REPOSITORY TYPE CODE TESTS RESULT OUT OF [...] BY SAME. Performed By: #### L300.8000 #### [facility] [address] [place], [place], [address] COMPREHENSIVE METABOLIC Collected: 03/16/2018 Status: F Source: ROBIN PROFIL 10:[address] [facility] REPOSITORY TYPE CODE TESTS RESULT OUT OF [...] GAP 9 Performed By: #### L500.4050 #### [facility] [address] [place], [place], [address] D-DIMER QUANTITATIVE Collected: 03/16/2018 Status: F Source: TOLLHOUSE (DVT/PE) 10:[address] [facility] REPOSITORY TYPE CODE TESTS RESULT OUT OF RANGE REFERENCE UNITS LAB L300.8000 0.27-0.49 FEU/ug/m High alert D-DIMER 2.06 QUANT Result Comment: D-Dimer ELEVATED (>0.49): Additional studies and clinical assessments are indicated to conclude diagnosis of: Deep Vein Thrombosis (DVT) or Pulmonary Embolism (PE) CRITICAL VALUE VERIFIED. CALLED TO MILAN ROSALES 03/16/18 Teena1 Carmelo Chiu RESULTS READ BACK BY SAME. Performed By: #### L300.8000 #### [facility] [address] [place], [address] COMPREHENSIVE METABOLIC Collected: 03/16/2018 Status: F Source: ROBIN MILLER 10:[address] [facility] REPOSITORY TYPE CODE TESTS RESULT OUT OF [...] GAP 9 Performed By: #### L500.4050 #### [facility] [address] [place], [place], [address] CBC W/DIFF, AUTOMATED Collected: 03/16/2018 Status: F Source: [place]LLHOUSE 10:[address] [facility] REPOSITORY TYPE CODE TESTS RESULT OUT OF [...] Lymph 1.08 Performed By: #### L100.0100 #### [facility] [address] [place], [place], [address] HUMERUS MIN 2 VIEWS Observed: 03/16/2018 Status: F Source: ROBIN 10:[address] [facility] REPOSITORY [facility] Imaging Services [address] [place] [address] Humerus min 2 Views MR#: [id number] Acct: [id number] Name: MYRNA BA Rep #: [id number] : 1935 F 82 From: Blaine Victor MD PCP: Meli Gómez DO Status: REG CLI Study: Humerus min 2 Views Date of Exam: 03/16/18 Exam# [id number] Ordering Dr: Meli Gómez DO STUDY: X-RAY [...] Blaine Victor MD at 10:55 EST Tel [phone], Service support , CC: Meli Gómez DO Garbage Truck Driver: Signed HUMERUS MIN 2 VIEWS Observed: 03/16/2018 Status: F Source: ROBIN 10:24 AM [facility] REPOSITORY [facility] Imaging Services [address] [place] [address] Humerus min 2 Views MR#: [id number] Acct: [id number] Name: MYRNA BA Rep #: [id number] : 1935 F 82 From: Blaine Victor MD PCP: Meli Gómez DO Status: REG CLI Study: Humerus min 2 Views Date of Exam: 03/16/18 Exam# [id number] Ordering Dr: Meli Gómez DO STUDY: X-RAY [...] Blaine Victor MD at 10:55 EST Tel [phone], Service support , CC: Meli Gómez DO Garbage Truck Driver: Signed CHEST PA AND LATERAL Observed: 03/16/2018 Status: F Source: TOLLHOUSE 10:[address] [facility] REPOSITORY [facility] Imaging Services [address] [place] [address] Chest PA and Lateral MR#: [id number] Acct: [id number] Name: MYRNA BA Rep #: [id number] : 1935 F 82 From: Blaine Victor MD PCP: Meli Gómez DO Status: REG CLI Study: Chest PA and Lateral Date of Exam: 03/16/18 Exam# [id number] Ordering Dr: Meli Gómez DO STUDY: X-RAY [...] Blaine Victor MD at 10:57 EST Tel [phone], Service support , CC: Meli Gómez DO Garbage Truck Driver: Signed CHEST PA AND LATERAL Observed: 03/16/2018 Status: F Source: TOLLHOUSE 10:[address] [facility] REPOSITORY [facility] Imaging Services [address] [place] [address] Chest PA and Lateral MR#: [id number] Acct: [id number] Name: MYRNA BA Rep #: [id number] : 1935 F 82 From: Blaine Victor MD PCP: Meli Gómez DO Status: REG CLI Study: Chest PA and Lateral Date of Exam: 03/16/18 Exam# [id number] Ordering Dr: Meli Gómez DO STUDY: X-RAY [...] Blaine Victor MD at 10:57 EST Tel [phone], Service support , CC: Meli Gómez DO Garbage Truck Driver: Signed DISCHARGE INSTRUCTION Observed: 03/13/2018 Status: F Source: TOLLHOUSE 11:[address] [facility] REPOSITORY [facility] Medical Records Department [address] [place] [address] Discharge Instruction 03/13/18 1153 MR#: [id number] Acct: [id number] Name: MYRNA BA Rep #: [id number] : 1935 82 From: Jenna Faust DO PCP: Meli Gómez DO Status: REG ER ED Disposition - Plan for ED Patient: Chief Complaint: Fall Instructions: ED Mechanical Fall, ED Head Injury Closed, ED Sprain Strain Neck, ED Contusion Upper Ext, ED Contusion Shoulder Prescriptions: Hydrocodone Bitart/Apap 5-325 [[place] 5MG-325MG] 1 tab PO Q4H PRN PRN 2 Days #10 tab PRN Reason: Pain Referrals: Meli Gómez DO [Primary Care Provider] - 3-5 Days What to do if you have Problems For any increased pain, shortness of breath, bleeding, nausea or vomiting, chest pain, or any unexpected problems, contact your Primary Care Provider. Call [facility] ([phone]) or report to the closest Emergency Room. Call 911 if necessary. 03/13/18 1155 <Electronically signed by Jenna Faust DO> Date Jenna Faust DO Cosigner Signature (If Indicated): Date CC: Meli Gómez DO EMERGENCY DEPARTMENT Observed: 03/13/2018 Status: F Source: [place]LL[place] SUMMARY 11:[address] [facility] REPOSITORY [facility] Medical Records Department [address] [place] [address] Emergency Department Summary 03/13/18 1150 MR#: [id number] Acct: [id number] Name: MYRNA BA Rep #: [id number] : 1935 82 From: Jenna Faust DO [...] shoulder strain] This note was generated with ETC Educationation software. It may contain incorrect words, spelling, [...] your Primary Care Provider. Call [facility] ([phone]) or report to the closest Emergency Room. Call 911 if necessary. 03/13/18 1153 <Electronically signed by Jenna Faust DO> Date Jenna Faust DO Cosigner Signature (If Indicated): Date CC: Meli Gómez DO BRAIN/HEAD WITHOUT Observed: 03/13/2018 Status: F Source: ROBIN CONTRAST 9:[address] [facility] REPOSITORY [facility] Imaging Services [address] [place] [address] Brain/Head without Contrast MR#: [id number] Acct: [id number] Name: MYRNA BA Rep #: [id number] : 1935 F 82 From: Blaine Victor MD PCP: Meli Gómez DO Status: PRE ER Study: Brain/Head without Contrast Date of Exam: 03/13/18 Exam# [id number] Ordering Dr: Jenna Faust DO STUDY: CT [...] Blaine Victor MD at 10:15 EST Tel [phone], Service support , CC: Meli Gómez DO; Jenna Faust DO Garbage Truck Driver: Signed SPINE CERVICAL Observed: 03/13/2018 Status: F Source: [place]LL[place]SE WITHOUT CONTRAS 9:[address] [facility] REPOSITORY [facility] Imaging Services [address] [place] [address] Spine Cervical without Contras MR#: [id number] Acct: [id number] Name: MYRNA BA Rep #: [id number] : 1935 F 82 From: Blaine Victor MD PCP: Meli Gómez DO Status: PRE ER Study: Spine Cervical without Contras Date of Exam: 03/13/18 Exam# [id number] Ordering Dr: Jenna Faust DO STUDY: CT [...] Blaine Victor MD at 10:19 EST Tel [phone], Service support , CC: Meli Góemz DO; Jenna Faust DO Garbage Truck Driver: Signed SHOULDER MIN 2 VIEWS Observed: 03/13/2018 Status: F Source: ROBIN 9:[address] [facility] REPOSITORY [facility] Imaging Services [address] [place] [address] Shoulder min 2 Views MR#: [id number] Acct: [id number] Name: MYRNA BA Rep #: [id number] : 1935 F 82 From: Blaine Victor MD PCP: Meli Gómez DO Status: REG ER Study: Shoulder min 2 Views Date of Exam: 03/13/18 Exam# [id number] Ordering Dr: Jenna Faust DO STUDY: X-RAY [...] Blaine Victor MD at 10:46 EST Tel [phone], Service support , CC: Meli Gómez DO; Jenna Faust DO Garbage Truck Driver: Signed CAROTID DUPLEX Observed: 11/16/2017 Status: F Source: TOLLHOUSE ULTRASOUND 6:[address] [facility] REPOSITORY [facility] Cardiovascular Services [address] [place] [address] Carotid Duplex Ultrasound 11/16/17 1405 MR#: [id number] Acct: [id number] Name: MYRNA BA Rep #: [id number] : 1935 82 From: Rashawn Andujar MD [...] the left vertebral artery. Procedure Carotid Duplex 57499. Exam performed in department. Interpretation Summary Mild (<50%) stenosis right extracranial internal carotid. Mild (<50%) stenosis left extracranial internal carotid. Flow within the vertebral arteries is antegrade bilaterally. Ordering Physician: Meli Gómez Referring Physician: Mlei Gómez Performed By: Judi Portillo, FLORECITA, RVT 11/16/171810 Date Rashawn Andujar MD CC: Meli Gómez DO Date Dictated: 11/16/17 1405 Date Transcribed: 11/16/171810 Garbage Truck Driver: Signed LOWER EXT NO JOINT Observed: 11/16/2017 Status: F Source: [place]LL[place]SE W/WO CONT 12:[address] [facility] REPOSITORY [facility] Imaging Services [address] [place] [address] Lower Ext No Joint W/WO Cont MR#: [id number] Acct: [id number] Name: JESENIAMYRNA Brooks Rep #: [id number] : 1935 F 82 From: Winter Pérez MD PCP: Meli Gómez DO Status: REG CLI Study: Lower Ext No Joint W/WO Cont Date of Exam: 11/16/17 Exam# [id number] Ordering Dr: Meli Gómez DO STUDY: MRI [...] Service support , CC: Meli Gómez DO Garbage Truck Driver: Signed DOWNTIME REPORT Observed: 10/05/2017 Status: F Source: TOLLHOUSE 11:46 AM [facility] Medical Records Department [address] [place] [address] Downtime Report MR#: [id number] Acct: [id number] Name: MYRNA BA Rep #: [id number] : 1935 82 From: Lit Escobar PCP: Meli Gómez DO Status: REG RCR This patient was seen during an EMR downtime September 18, 2017 - September 25, 2017. This patient may have a combination of paper and electronic documentation or all paper documentation. All documentation is viewable within the e-chart portion of [employer] for each patient visit. SCREENING MAMM (CAD), Observed: 06/19/2017 Status: F Source: ROBIN BILAT 11:04 AM [facility] Imaging Services [address] [place] [address] SCREENING MAMM (CAD), BILAT MR#: [id number] Acct: [id number] Name: MYRNA BA Rep #: [id number] : 1935 F 81 From: Blaine Victor MD PCP: Meli Gómez DO Status: REG CLI Study: SCREENING MAMM (CAD), BILAT Date of Exam: 06/19/17 Exam# [id number] Ordering Dr: Meli Gómez DO MAMMOGRAPHY - [...] delay biopsy of a clinically suspicious abnormality. [id number] Electronically Signed: Blaine Victor MD at 13:11 EST Tel [phone], Service support , CC: Meli Gómez DO Garbage Truck Driver: Signed ALLERGIES ALLERGIES DATE TYPE / NAME / CODE REACTION SEVERITY SOURCE CODE 03/13/2018 Drug ipratropium Other Unknown [place] Allergy/41 bromide/[id number] [facility] 7584843(SN 0(RXNORM) Hospital OME CT) Repository 03/13/2018 Drug albuterol Other Unknown [place] Allergy/41 sulfate/[id number] [facility] 7407032( 5(RXNORM) Hospital OME CT) Repository 03/13/2018 Drug morphine/[id number] UNCONTROLLED Unknown [place] Allergy/41 45(RXNORM) BEHAVIOR [facility] [id number]([facility] OME [facility]) Repository ENCOUNTERS ENCOUNTERS ADMIT/DISCHARGE ACCOUNT ADMITTING ENCOUNTER LOCATION SOURCE NUMBER CLASS 04/02/2018 [id number] Ambulatory [place] 9 [facility] ing:ONC Repository 04/02/2018 [id number] Ambulatory Robin Robin 7 [facility] ing:MASS Repository 03/16/2018 [id number] Ambulatory [place] 6 [facility] ing:CT Repository 03/14/2018 [address] Ambulatory Building:[facility] Practices Repository 03/13/2018/ [id number] Emergency [place] 8 4 [facility] ing:ED Repository 11/16/2017 [id number] Ambulatory [place] 1 [facility] ing:MRI Repository 06/19/2017 [id number] Ambulatory Robin Robin 4 [facility] ing:BI Repository PAYERS PAYERS ENCOUNTER GUARANTOR PAYER SUBSCRIBER SOURCE 04/02/2018 MYRNA Guy Primary MYRNA Guy Robin [id number] [place] Insurance:MEDICARE WHITEDOB: [facility] PART A BPolicy Number: [id number] [place], [place] [id number] Repository [address]Qti: 330) Date:2018-03-29 [phone] () 04/02/2018 Secondary MYRNA Kelly Insurance:HUMANA WHITEDOB: [id number] Number: Repository [id number] Date:8619[place]02[place] [address]WP: 04/02/2018 Tertiary NOT GIVENUNK [place] Insurance:SELF PAY [facility] Number: Effective Repository Date:2018-03-29 04/02/2018 MYRNA Guy Primary Insurance:SELF NOT GIVENUNK [place] [id number] [place]ER [facility]Y [facility] [address] Community CHEESH-NA Number: Effective [place] Date:2015-04-17 Repository [address]Xmm: (HP) 03/16/2018 MYRNA Guy Primary MYRNA Guy [place] [id number] [place] Insurance:MEDICARE WHITEDOB: Community [place]ESH-[place] PART A BPolicy Number: [id number] [id number] Repository [address]Ace: (281) Date:2018-03-16 [phone] (HP) 03/16/2018 Secondary MYRNA Guy Robin Insurance:HUMANA WHITEDOB: [facility] [address] [id number] Hospital Number: Repository [id number] Date:[id number] [address]AC: 03/16/2018 Tertiary NOT GIVENUNK [place] Insurance:SELF PAY [facility] Number: Effective Repository Date:2018-03-16 03/14/2018 MYRNA Guy Primary MYRNA Guy OHIP Practices WHITEDOB: Insurance:MedicarePoli WHITEDOB: Repository [id number] cy Number: [id number] [place] [id number] [address] [place] [address] Date:4940-90-08VzwoDudley, [place] [address]Xcm: ([phone]) Name:[facility] 18[address]Rfh: [id number], [place] [phone] () (HP)Tel: [phone]: ([phone]) [phone] 03/14/2018 Secondary MYRNA Guy OHIP Practices Insurance:Humana/Suppl WHITEDOB: Repository [facility] [address] [id number] Number: [address] [place] [id number] [place], [place] Date:4664-30-58Hlbl 77[address]Grz: (088) Name:[facility] [phone] () [address] [place] [address]LX: 03/13/2018 MYRNA Guy Primary MYRNA Guy [place] [id number] [place] Insurance:MEDICARE WHITEDOB: Community CHEESH-NA PART A BPolicy Number: [id number], [place] [id number] Repository [address]Smu: (330) Date:2018-03-13 [phone] () 03/13/2018 Secondary NOT GIVENUNK [place] Insurance:SELF PAY [facility] Number: Effective Repository Date:2018-03-13 11/16/2017 Myrna Guy Primary Myrna Guy Robin [id number] [place] Insurance:MEDICARE WhiteDOB: Community [place] PART A BPolicy Number: [id number] [id number] Repository [address]Fuo: (330) Date:2017-11-06 [phone] () 11/16/2017 Secondary Myrna Fortuneoster Insurance:HUMANA WhiteDOB: [facility] [address] [id number] Hospital Number: Repository [id number] Date:0020-15-41[address] [address]WO: 11/16/2017 Tertiary NOT GIVENUNK Robin Insurance:SELF PAY [facility] Number: Effective Repository Date:2017-11-06 06/19/2017 Myrna Guy Primary Myrna Guy Robin [id number] [place] Insurance:MEDICARE WhiteDOB: Community [place] PART A BPolicy Number: [id number], [place] [id number] Repository [address]Frh: 330) Date:2017-03-22 [phone] () 06/19/2017 Secondary Myrna Guy Robin Insurance:HUMANA WhiteDOB: Community COMMERCIALPolicy [id number] Hospital Number: Repository [id number] Date:8084-94-51[address] [address], [place] [address]YU: 06/19/2017 Tertiary NOT GIVENUNK [place] Insurance:SELF PAY [facility] Number: Effective Repository Date:2017-03-22
== END ==
PROVIDERS: Family Provider Internal Medicine; PCP Internal Medicine; Referring Provider Internal Medicine; Visit Provider Internal Medicine
DX: R79.89 Other specified abnormal findings of blood chemistry (principal); R07.1 Chest pain on breathing; M79.602 Pain in left arm
CPT/HCPCS: 71046; 71275; 73060; 80053; 85025; 85379; Q9967

== ENCOUNTER → 2018-04-02 11:24 | Outpatient (CLI) | payer MEDICARE, OTHER, SELFPAY ==
[2018-03-13 09:15] VITALS: BMI 29.8
--- NOTE | 2018-04-02 12:00 | PET_ITS ---
EXAMINATION: FDG PET CT INDICATIONS: An 82-year-old female with history of carcinoma of the lung presenting for restaging examination and evaluation of pulmonary nodularity. COMPARISON EXAMINATION: CTA of the chest report dated 03/16/18, previous FDG PET study report dated 05/20/13. INDEX LESION SIZE SUV INTERPRETATION NEW: Left scapula, third thoracic vertebra 3.1 (max) Fulfills quantitative criteria for viable osseous neoplasm. TECHNIQUE: Following the intravenous administration of 15.1 mCi of F-18 deoxyglucose via the right hand, multiplanar image acquisitions of the neck, chest, abdomen and pelvis to level of mid thigh, obtained at one hour post radiopharmaceutical administration contemporaneously interpreted with the current CT of the neck, chest, abdomen and pelvis to level of mid thigh, dated 04/02/18 via coregistration and CTA of the chest report dated 03/16/18, previous FDG PET study report dated 05/20/13 reveal: SERUM GLUCOSE LEVEL: 90 mg/dl. HEIGHT: 62 inches. WEIGHT: 162 lbs. FINDINGS: 1. Asymmetric increased glucose concentration is defined in the left mid posterolateral chest wall contiguous to the scapula and third thoracic vertebra. The calculated maximum standard uptake value is 3.1. 2. Normal physiologic distribution of the radiopharmaceutical is apparent in the hepatic (3.1) and splenic parenchyma, both renal units, bladder and visualized intestinal tract. There is uniform distribution of the radiopharmaceutical concentration defined in the visualized cerebellar hemispheres and cerebral cortical structures.? Diffuse intestinal tract activity is noted throughout all four quadrants of the abdominal-pelvic retroperitoneum, mesentery consistent with normal physiologic distribution of the radiopharmaceutical most accentuated in the right upper pelvic mesentery contiguous to the proximal ascending colon. Increased glucose concentration is observed in the descending thoracic aorta. Pertinent CT findings are as follows. CHEST: Coronary arterial calcification is observed. Atherosclerotic calcification is defined in the thoracic aorta without evidence of dilatation, aneurysm formation. Bilateral axillary and scattered calcified and noncalcified mediastinal and thoracic perihilar soft tissue densities are non-glucose avid. Emphysematous change is noted in the bilateral upper lung zones. A parenchymal density defined in the right mid lateral hemithorax pulmonary parenchyma, right upper lobe demonstrates no evidence of increased glucose metabolism. ABDOMEN AND PELVIS: Atherosclerotic calcification is defined in the abdominal aorta without evidence of dilatation, aneurysm formation. Abdominal-pelvic arterial calcification is observed. Right-left inguinal soft tissue densities are ametabolic. The gallbladder is not clearly identified. SKELETAL: Degenerative changes defined in the cervical, thoracic and lumbar spine demonstrate no evidence for glucose hypermetabolism. PET/PET/CT Tumor Base -Thigh Init IMPRESSION: 1. Facilitated glucose concentration observed in the third thoracic vertebra and left scapula fulfills quantitative criteria for viable osseous neoplasm. (Yasmin et al, Clinical Nuclear Medicine 29:161, 2004). 2. Anatomic stability may be ensured in the nonglucose avid right upper hemithorax parenchymal-right upper lobe density with repeat CT of the thorax in six months. (Rafat, Seminars in Thoracic and Cardiovascular Surgery 14:292, 2002). 3. Prominent glucose concentration observed in the right upper pelvic mesentery contiguous to the proximal ascending colon may be further investigated with CT of the abdomen and pelvis with oral and intravenous contrast if intraluminal soft tissue mass formation is suspected. (Docornelio et al, Journal of Nuclear Medicine, 30:S276, 2003). 4. Enhanced glucose concentration observed in the descending thoracic aorta is commensurate with activated leukocytes associated with atherosclerotic plaque formation. (Jeanette et al, Clinical Nuclear Medicine 29:93, 2003). 5. 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 Electronic Signature Gordy Ahuja D.O. Electronically Signed: Goryd Ahuja DO at 22:07 EST Tel , Service support ,
--- OUTSIDE RECORDS SUMMARY | 2018-07-05 01:18 | XMS RPT_ITS ---
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 IN Community COLLISION W Hospital PED/ANML * DO NOT Repository USE * / V70.5(ICD-10) 05/01/2018 Unknown S09.90XA - Ungur Rem Active [place] Unspecified Community injury of head, Hospital initial encounter Repository / S09.90XA(ICD-10) 06/19/2017 Unknown Z12.31 - Meli Gómez Active [place] Encounter for [facility] mammogram for Repository malignant neoplasm of breast / Z12.31(ICD-10) PROCEDURES PROCEDURES No Procedure Records FoundRESULTS RESULTS ABDOMEN/PELVIS WITH Observed: 04/23/2018 Status: F Source: [place] CONTRAST 2:15 PM [facility] REPOSITORY [facility] Imaging Services [address] [place] [address] Abdomen/Pelvis WITH Contrast MR#: [id number] Acct: [id number] Name: MYRNA BA Rep #: [id number] : 1935 F 82 From: Alisson Leiva MD PCP: Meli Gómez DO Status: REG CLI Study: Abdomen/Pelvis WITH Contrast Date of Exam: 04/23/18 Exam# [id number] Ordering Dr: Meli Gómez DO STUDY: CT ABDOMEN AND PELVIS WITH CONTRAST REASON FOR EXAM: Female, 82 years old. Abnormal tracer activity adjacent to the ascending colon on recent PET/CT RADIATION DOSAGE (If Supplied By Facility): CTDIvol = ( 18.09 ) mGy, DLP = ( 921.88 ) mGycm TECHNIQUE: Transaxial images were obtained from the lower chest to the upper thighs with oral contrast. 100 ml of Isovue 300 contrast was administered. Sagittal and coronal images were reconstructed. Individualized dose optimization techniques were used for this CT. COMPARISON: PET/CT scan dated April 02, 2018 FINDINGS: Lower chest: Lower lungs: Minimal dependent atelectasis in both lung bases. Pleura: No pleural effusion. Cardiac: Normal size heart. Scattered coronary artery calcifications. Liver: Few subcentimeter hypodensities, probable cysts. Spleen: Normal in appearance. Gallbladder and biliary system: Prior cholecystectomy. Pancreas: Normal in appearance. Adrenal glands: Normal in appearance. Kidneys and collecting systems: Right: Scattered benign cysts. No dilatation of collecting system. Left: Scattered benign cysts. No dilatation of collecting system. Gastrointestinal: Stomach: Normal in appearance. Small bowel: Normal in appearance. Colon: Diverticula distally without adjacent stranding. The cecum is positioned in the right upper abdomen posterior to the liver. There is mild scattered wall thickening in the cecum and ascending colon. Appendix: Normal in appearance. Axial images 22-29. Coronal images 71-76. Vessels: Arterial: Moderate scattered vascular calcifications. Venous: Incidental retroaortic left renal vein. Retroperitoneum/mesentery: Lymph nodes: Unremarkable. Fluid/free air: None. Pelvis: Bladder: Normal in appearance. Reproductive organs: Uterus normal in appearance. No abnormal masses in the adnexal regions. No pelvic free fluid. Soft tissues: Unremarkable. Bones: Mild degenerative changes. Marked degenerative disc changes at L4-5. CT/Abdomen/Pelvis WITH Contrast IMPRESSION: There are no discrete abnormalities adjacent to the ascending colon in the mid to lower right abdomen. There are scattered areas of mild wall thickening in the cecum and ascending colon, nonspecific in appearance and possibly representing a mild inflammatory or infectious colitis. There is no bowel obstruction. There is no ascites, free air or significant lymphadenopathy. Electronically Signed: Alisson Leiva MD at 15:03 EST Tel Direct: [phone], Service support , CC: Meli Gómez DO Color Mixer: Signed THORACIC SPINE 3 Observed: 04/06/2018 Status: F Source: [place] VIEWS 2:29 PM [facility] REPOSITORY [facility] Imaging Services [address] [place] [address] Thoracic Spine 3 Views MR#: [id number] Acct: [id number] Name: MYRNA BA Brooks Rep #: [id number] : 1935 F 82 From: Viral Daniel MD PCP: Meli Gómez DO Status: REG CLI Study: Thoracic Spine 3 Views Date of Exam: 04/06/18 Exam# [id number] Ordering Dr: Meli Gómez DO STUDY: X-RAY - THORACIC SPINE REASON FOR EXAM: Female, 82 years old. Pain after a fall TECHNIQUE: 2 view(s) of the thoracic spine were obtained. COMPARISON: None. FINDINGS: Normal kyphosis of the thoracic spine. There is a mild levoscoliosis. There is demineralization of the thoracic spine with endplate spondylosis. There is multilevel disc space narrowing of the thoracic spine. The soft tissue structures are unremarkable. RAD/Thoracic Spine 3 Views IMPRESSION: Multilevel degenerative changes Electronically Signed: Quique Daniel MD at 10:33 EST , Service support , CC: Meli Gómez DO Color Mixer: Signed SCAPULA Observed: 04/06/2018 Status: F Source: [place] 2:29 PM [facility] REPOSITORY [facility] Imaging Services [address] [place] [address] Scapula MR#: [id number] Acct: [id number] Name: MYRNA BA Rep #: [id number] : 1935 F 82 From: Carmelo Gomes MD PCP: Meli Gómez DO Status: REG CLI Study: Scapula Date of Exam: 04/06/18 Exam# [id number] Ordering Dr: Meli Gómez DO HISTORY: pain in left scapula, fell in February COMPARISON: None FINDINGS: XR Scapula: Generalized bony demineralization consistent with the patient's age. No fracture or suspicious bony lesion. RAD/Scapula IMPRESSION: Negative left scapula. No fracture seen. at 0356 Reported and signed by: Carmelo Gomes MD Electronically Signed: Carmelo Gomes, at 3:55 EST Tel , Service support , CC: Meli Gómez DO Color Mixer: Signed PET/CT TUMOR BASE Observed: 04/02/2018 Status: F Source: ROBIN -THIGH INIT 7:06 AM [facility] REPOSITORY [facility] Imaging Services [address] [place] [address] PET/CT Tumor Base -Thigh Init MR#: [id number] Acct: [id number] Name: MYRNA BA Rep #: [id number] : 1935 F 82 From: Gordy Ahuja DO PCP: Meli Gómez DO Status: REG CLI Study: PET/CT Tumor Base -Thigh Init Date of Exam: 04/02/18 Exam# [id number] Ordering Dr: Meli Gómez DO EXAMINATION: FDG [...] quantitative criteria for viable osseous neoplasm. (Yasmin hernandez al, Clinical Nuclear Medicine 29:161, 2003). 2. Anatomic stability may be ensured in [...] intraluminal soft tissue mass formation is suspected. (Dobert et al, Journal of Nuclear Medicine, 30:S276, 2003). 4. Enhanced glucose concentration observed in the descending thoracic aorta is commensurate with activated leukocytes associated with atherosclerotic plaque formation. (Timur, Clinical Nuclear Medicine 29:93, 2004). 5. 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 Electronic Signature Gordy Ahuja D.O. Electronically Signed: Gordy Ahuja DO at 22:07 EST Tel , Service support , CC: Meli Gómez DO Color Mixer: Signed CTA CHEST W/WO Observed: 03/16/2018 Status: F Source: [place] CONTRAST 11:58 AM [facility] REPOSITORY [facility] Imaging Services [address] [place] [address] CTA Chest W/WO Contrast MR#: [id number] Acct: [id number] Name: MYRNA BA Rep #: [id number] : 1935 F 82 From: Blaine Victor MD PCP: Meli Gómez DO Status: REG CLI Study: CTA Chest W/WO Contrast Date of Exam: 03/16/18 Exam# [id number] Ordering Dr: Meli Gómez DO STUDY: CTA [...] Blaine Victor MD at 12:44 EST Tel [phone], Service support , CC: Meli Gómez DO Color Mixer: Signed CBC W/DIFF, AUTOMATED Collected: 03/16/2018 Status: F Source: ROBIN 10:44 AM [facility] REPOSITORY TYPE CODE TESTS RESULT OUT OF [...] Lymph 1.08 Performed By: #### L100.0100 #### [facility] [address] [place], [place], [address] D-DIMER QUANTITATIVE Collected: 03/16/2018 Status: F Source: ROBIN (DVT/PE) 10:44 AM [facility] REPOSITORY TYPE CODE TESTS RESULT OUT OF [...] BY SAME. Performed By: #### L300.8000 #### [facility] [address] [place], [place], [address] COMPREHENSIVE METABOLIC Collected: 03/16/2018 Status: F Source: ROBIN PROFIL 10:44 AM [facility] REPOSITORY TYPE CODE TESTS RESULT OUT OF [...] GAP 9 Performed By: #### L500.4050 #### [facility] [address] [place], [place], [address] D-DIMER QUANTITATIVE Collected: 03/16/2018 Status: F Source: ROBIN (DVT/PE) 10:44 AM [facility] REPOSITORY TYPE CODE TESTS RESULT OUT OF [...] BY SAME. Performed By: #### L300.8000 #### [facility] [address] [place], [address] COMPREHENSIVE METABOLIC Collected: 03/16/2018 Status: F [facility] REPOSITORY TYPE CODE TESTS RESULT OUT OF [...] GAP 9 Performed By: #### L500.4050 #### [facility] [address] [place], [address] CBC W/DIFF, AUTOMATED Collected: 03/16/2018 Status: F Source: ROBIN 10:44 AM [facility] REPOSITORY TYPE CODE TESTS RESULT OUT OF [...] Lymph 1.08 Performed By: #### L100.0100 #### [facility] [address] [place], [address] HUMERUS MIN 2 VIEWS Observed: 03/16/2018 Status: F Source: ROBIN 10:24 AM [facility] REPOSITORY [facility] Imaging Services [address] [place] [address] Humerus min 2 Views MR#: [id number] Acct: [id number] Name: MYRNA BA Rep #: [id number] : 1935 F 82 From: Blaine Victor MD PCP: Meli Gómez DO Status: REG CLI Study: Humerus min 2 Views Date of Exam: 03/16/18 Exam# [id number] Ordering Dr: Meli Gómez DO STUDY: X-RAY [...] Blaine Victor MD at 10:55 EST Tel [phone], Service support , CC: Meli Gómez DO Color Mixer: Signed HUMERUS MIN 2 VIEWS Observed: 03/16/2018 Status: F Source: ROBIN 10:24 AM [facility] REPOSITORY [facility] Imaging Services [address] [place] [address] Humerus min 2 Views MR#: [id number] Acct: [id number] Name: MYRNA BA Rep #: [id number] : 1935 F 82 From: Blaine Victor MD PCP: Meli Gómez DO Status: REG CLI Study: Humerus min 2 Views Date of Exam: 03/16/18 Exam# [id number] Ordering Dr: Meli Gómez DO STUDY: X-RAY [...] Blaine Victor MD at 10:55 EST Tel [phone], Service support , CC: Meli Gómez DO Color Mixer: Signed CHEST PA AND LATERAL Observed: 03/16/2018 Status: F Source: [place] 10:22 AM [facility] Imaging Services [address] [place] [address] Chest PA and Lateral MR#: [id number] Acct: [id number] Name: MYRNA BA Rep #: [id number] : 1935 F 82 From: Blaine Victor MD PCP: Meli Gómez DO Status: REG CLI Study: Chest PA and Lateral Date of Exam: 03/16/18 Exam# [id number] Ordering Dr: Meli Gómez DO STUDY: X-RAY [...] Blaine Victor MD at 10:57 EST Tel [phone], Service support , CC: Meli Gómez DO Color Mixer: Signed CHEST PA AND LATERAL Observed: 03/16/2018 Status: F Source: [place] 10:22 AM [facility] REPOSITORY [facility] Imaging Services [address] [place] [address] Chest PA and Lateral MR#: [id number] Acct: [id number] Name: MYRNA BA Rep #: [id number] : 1935 F 82 From: Blaine Victor MD PCP: Meli Gómez DO Status: REG CLI Study: Chest PA and Lateral Date of Exam: 03/16/18 Exam# [id number] Ordering Dr: Meli Gómez DO STUDY: X-RAY [...] Blaine Victor MD at 10:57 EST Tel [phone], Service support , CC: Meli Gómez DO Color Mixer: Signed DISCHARGE INSTRUCTION Observed: 03/13/2018 Status: F Source: [place] 11:55 AM [facility] REPOSITORY [facility] Medical Records Department [address] [place] [address] Discharge Instruction 03/13/18 1153 MR#: [id number] Acct: [id number] Name: MYRNA BA Rep #: [id number] : 1935 82 From: Jenna Faust DO PCP: Meli Gómez DO Status: REG ER ED Disposition - Plan for ED Patient: Chief Complaint: Fall Instructions: ED Mechanical Fall, ED Head Injury Closed, ED Sprain Strain Neck, ED Contusion Upper Ext, ED Contusion Shoulder Prescriptions: Hydrocodone Bitart/Apap 5-325 [[place] 5MG-325MG] 1 tab PO Q4H PRN PRN 2 Days #10 tab PRN Reason: Pain Referrals: Meli Gómez DO [Primary Care Provider] - 3-5 Days What to do if you have Problems For any increased pain, shortness of breath, bleeding, nausea or vomiting, chest pain, or any unexpected problems, contact your Primary Care Provider. Call [facility] ([phone]) or report to the closest Emergency Room. Call 911 if necessary. 03/13/18 1155 <Electronically signed by Jenna Faust DO> Date Jenna Faust DO Cosigner Signature (If Indicated): Date CC: Meli Gómez DO EMERGENCY DEPARTMENT Observed: 03/13/2018 Status: F Source: [place] SUMMARY 11:53 AM [facility] REPOSITORY [facility] Medical Records Department [address] [place] [address] Emergency Department Summary 03/13/18 1150 MR#: [id number] Acct: [id number] Name: MYRNA BA Rep #: [id number] : 1935 82 From: Jenna Faust DO [...] shoulder strain] This note was generated with Playboox dictation software. It may contain incorrect words, spelling, [...] your Primary Care Provider. Call [facility] ([phone]) or report to the closest Emergency Room. Call 911 if necessary. 03/13/18 1153 <Electronically signed by Jenna Faust DO> Date Jenna Faust DO Cosigner Signature (If Indicated): Date CC: Meli Gómez DO BRAIN/HEAD WITHOUT Observed: 03/13/2018 Status: F Source: [place] CONTRAST 9:35 AM [facility] Imaging Services [address] [place] [address] Brain/Head without Contrast MR#: [id number] Acct: [id number] Name: MYRNA BA Rep #: [id number] : 1935 F 82 From: Blaine Victor MD PCP: Meli Gómez DO Status: PRE ER Study: Brain/Head without Contrast Date of Exam: 03/13/18 Exam# [id number] Ordering Dr: Jenna Faust DO STUDY: CT [...] Blaine Victor MD at 10:15 EST Tel [phone], Service support , CC: Meli Gómez DO; Jenna Faust DO Color Mixer: Signed SPINE CERVICAL Observed: 03/13/2018 Status: F Source: [place] WITHOUT CONTRAS 9:35 AM [facility] REPOSITORY [facility] Imaging Services [address] [place] [address] Spine Cervical without Contras MR#: [id number] Acct: [id number] Name: MYRNA BA Rep #: [id number] : 1935 F 82 From: Blaine Victor MD PCP: Meli Gómez DO Status: PRE ER Study: Spine Cervical without Contras Date of Exam: 03/13/18 Exam# [id number] Ordering Dr: Jenna Faust DO STUDY: CT [...] Blaine Victor MD at 10:19 EST Tel [phone], Service support , CC: Meli Gómez DO; Jnena Faust DO Color Mixer: Signed SHOULDER MIN 2 VIEWS Observed: 03/13/2018 Status: F Source: [place] 9:35 AM [facility] REPOSITORY [facility] Imaging Services [address] [place] [address] Shoulder min 2 Views MR#: [id number] Acct: [id number] Name: MYRNA BA Rep #: [id number] : 1935 F 82 From: Blaine Victor MD PCP: Meli Gómez DO Status: REG ER Study: Shoulder min 2 Views Date of Exam: 03/13/18 Exam# [id number] Ordering Dr: Jenna Faust DO STUDY: X-RAY [...] Blaine Victor MD at 10:46 EST Tel [phone], Service support , CC: Meli Gómez DO; Jenna Faust DO Color Mixer: Signed CAROTID DUPLEX Observed: 11/16/2017 Status: F Source: [place] ULTRASOUND 6:11 PM [facility] REPOSITORY [facility] Cardi[place] [address] Carotid Duplex Ultrasound 11/16/17 1405 MR#: [id number] Acct: [id number] Name: MYRNA BA Rep #: [id number] : 1935 82 From: Rashawn Andujar MD [...] the left vertebral artery. Procedure Carotid Duplex 16366. Exam performed in department. Interpretation Summary Mild (<50%) stenosis right extracranial internal carotid. Mild (<50%) stenosis left extracranial internal carotid. Flow within the vertebral arteries is antegrade bilaterally. Ordering Physician: Meli Gómez Referring Physician: Meli Gómez Performed By: Judi Portillo, FLORECITA, RVT 11/16/171810 Date Rashawn Andujar MD CC: Meli Gómez DO Date Dictated: 11/16/17 1405 Date Transcribed: 11/16/171810 Color Mixer: Signed LOWER EXT NO JOINT Observed: 11/16/2017 Status: F Source: [place] W/WO CONT 12:17 PM [facility] REPOSITORY [facility] Imaging Services [address] [place] [address] Lower Ext No Joint W/WO Cont MR#: [id number] Acct: [id number] Name: MYRNA BA Rep #: [id number] : 1935 F 82 From: Winter Pérez MD PCP: Meli Gómez DO Status: REG CLI Study: Lower Ext No Joint W/WO Cont Date of Exam: 11/16/17 Exam# [id number] Ordering Dr: Meli Gómez DO STUDY: MRI [...] Service support , CC: Meli Gómez DO Color Mixer: Signed DOWNTIME REPORT Observed: 10/05/2017 Status: F Source: [place] 11:46 AM [facility] Medical Records Department [address] [place] [address] Downtime Report MR#: [id number] Acct: [id number] Name: MYRNA BA Rep #: [id number] : 1935 82 From: Lit Escobar PCP: Meli Gómez DO Status: REG RCR This patient was seen during an EMR downtime September 18, 2017 - September 25, 2017. This patient may have a combination of paper and electronic documentation or all paper documentation. All documentation is viewable within the e-chart portion of [facility] for each patient visit. SCREENING MAMM (CAD), Observed: 06/19/2017 Status: F Source: ROB[place] BILAT 11:04 AM [facility] Imaging Services [address] [place] [address] SCREENING MAMM (CAD), BILAT MR#: [id number] Acct: [id number] Name: MYRNA BA Rep #: [id number] : 1935 F 81 From: Blaine Victor MD PCP: Meli Gómez DO Status: REG CLI Study: SCREENING MAMM (CAD), BILAT Date of Exam: 06/19/17 Exam# [id number] Ordering Dr: Meli Gómez DO MAMMOGRAPHY - [...] delay biopsy of a clinically suspicious abnormality. [id number] Electronically Signed: Blaine Victor MD at 13:11 EST Tel [phone], Service support , CC: Meli Gómez DO Color Mixer: Signed ALLERGIES ALLERGIES DATE TYPE / NAME / CODE REACTION SEVERITY SOURCE CODE 03/13/2018 Drug ipratropium Other Unknown [place] Allergy/41 bromide/[id number] [facility] 3290234( 0(RXNORM) [facility]) Repository 03/13/2018 Drug albuterol Other Unknown [place] Allergy/41 sulfate/[id number] [facility] 1587606( 5(RXNORM) [facility]) Repository 03/13/2018 Drug morphine/[id number] UNCONTROLLED Unknown [place] Allergy/41 45(RXNORM) BEHAVIOR [facility] [id number]([facility]) Repository ENCOUNTERS ENCOUNTERS ADMIT/DISCHARGE ACCOUNT ADMITTING ENCOUNTER LOCATION SOURCE NUMBER CLASS 05/07/2018 [id number] Ambulatory [place] 7 [facility] ing:MASS Repository 05/07/2018 [id number] Ambulatory Building:[facility] OHIP Practices Repository 04/23/2018 [id number] Ambulatory [place] Robin 2 [facility] ing:CT Repository 04/06/2018 [id number] Ambulatory [place] 4 [facility] ing:MTRAD Repository 04/02/2018 [id number] Ambulatory [place] Robin 9 [facility] ing:ONC Repository 03/16/2018 [id number] Ambulatory [place] 6 [facility] ing:CT Repository 03/13/2018/ [id number] Emergency [place] 8 4 [facility] ing:ED Repository 11/16/2017 [id number] Ambulatory Robin [place] 1 [facility] ing:MRI Repository 06/19/2017 [id number] Ambulatory [place] 4 [facility] ing:BI Repository PAYERS PAYERS ENCOUNTER GUARANTOR PAYER SUBSCRIBER SOURCE 05/07/2018 MYRNA Guy Primary Insurance:SELF NOT GIVENUNK [place] [id number] [facility]: [facility] [place] Date:2015-04-17 Repository [address]Zsp: (HP) 05/07/2018 MYRNA M Primary MYRNA Guy OHIP Practices WHITEDOB: Insurance:MedicarePoli WHITEDOB: Repository [id number] cy Number: [id number] [place] OD54Glwcoxltp 9 [address], [place] Date:6731-75-40Fotx [place], [place] [address]Dkz: (330) Name:[facility] [address] [address]Lim: [id number], [place] [phone] (HP) (HP)Tel: [phone]: ([phone]) [phone] 05/07/2018 Secondary MYRNA M OHIP Practices Insurance:Humana/Suppl WHITEDOB: Repository [facility] [id number] Number: 9 Rawson [id number] [place], [place] Date:7095-64-00Pjqt [address]Zwn: (268) Name:[facility] [phone] () [address] [place] [address]YV: 04/23/2018 MYRNA M Primary MYRNA [place] [id number] DEER Insurance:MEDICARE WHITEDOB: [facility] [place] BPolicy [place]: [id number] [id number] Repository [address]Nta: (921) Date:2018-04-18 [phone] (HP) 04/23/2018 Secondary MYRNA Kelly Insurance:HUMANA WHITEDOB: [facility] [id number] Hospital Number: Repository [id number] Date:7430-82-76[address] [address]GA: 04/23/2018 Tertiary NOT GIVENUNK [place] Insurance:SELF PAY [facility] Number: Effective Repository Date:2018-04-18 04/06/2018 MYRNA M Primary MYRNA Guy [place] [id number] DEER Insurance:MEDICARE WHITEDOB: Community [place] A BPolicy Number: [id number], [place] [id number] Repository [address]Chf: 330) Date:2018-04-06 [phone] () 04/06/2018 Secondary MYRNA Guy [place] Insurance:HUMANA WHITEDOB: Community COMMERCIALPolicy [id number] Hospital Number: Repository [id number] Date:8095-99-65VU [address] [place] [address]IA: 04/06/2018 Tertiary NOT GIVENUNK [place] Insurance:SELF PAY [facility] Hospital Number: Effective Repository Date:2018-04-06 04/02/2018 MYRNA Guy Primary MYRNA [place] [id number] DEER Insurance:MEDICARE WHITEDOB: Community [place] PART A BPolicy Number: [id number], [place] [id number] Repository [address]Tjb: 330) Date:2018-03-29 [phone] () 04/02/2018 Secondary MYRNA Guy [place] Insurance:HUMANA WHITEDOB: [facility] [id number] Hospital Number: Repository [id number] Date:6327-97-05[address] [address]FR: 04/02/2018 Tertiary NOT GIVENUNK [place] Insurance:SELF PAY [facility] Hospital Number: Effective Repository Date:2018-03-29 03/16/2018 MYRNA Guy Primary MYRNA [place] [id number] DE[place] Insurance:MEDICARE WHITEDOB: Community [place] PART A BPolicy Number: [id number], [place] [id number] Repository [address]Lny: (330) Date:2018-03-16 [phone] () 03/16/2018 Secondary MYRNA Guy [place] Insurance:HUMANA WHITEDOB: [facility] [id number] Hospital Number: Repository [id number] Date:1765-91-14FE [address] [place] [address]HQ: 03/16/2018 Tertiary NOT GIVENUNK [place] Insurance:SELF PAY [facility] Hospital Number: Effective Repository Date:2018-03-16 03/13/2018 MYRNA Guy Primary MYRNA Marte[place] [id number] [place] Insurance:MEDICARE WHITEDOB: Community [place] PART A BPolicy Number: [id number], [place] [id number] Repository [address]Kvp: 330) Date:2018-03-13 [phone] () 03/13/2018 Secondary MYRNA Guy [place] Insurance:HUMANA WHITEDOB: Community [facility] [id number] Hospital Number: Repository [id number] Date:1891-30-94OL [address] [address]VT: 03/13/2018 Tertiary NOT GIVENUNK Robin Insurance:SELF PAY [facility] Hospital Number: Effective Repository Date:2018-03-13 11/16/2017 Myrna Guy Primary Myrna Guy Robin [id number] [employer] Insurance:MEDICARE WhiteDOB: Community [place] PART A BPolicy [place]: [id number] [id number] Repository [address]Lzl: 330) Date:2017-11-06 [phone] () 11/16/2017 Secondary Myrna Guy Robin Insurance:HUMANA WhiteDOB: Community COMMERCIALPolicy [id number] Hospital Number: Repository [id number] Date:[id number] [address] [address]AR: 11/16/2017 Tertiary NOT GIVENUNK Robin Insurance:SELF PAY [facility] Number: Effective Repository Date:2017-11-06 06/19/2017 Myrna Guy Primary Myrna Marteoster [id number] [employer] Insurance:MEDICARE WhiteDOB: [place] PART A BPolicy Number: [id number] [id number] Repository [address]Yeu: 330) Date:2017-03-22 [phone] () 06/19/2017 Secondary Myrna Kelly Insurance:HUMANA WhiteDOB: [facility] [id number] Hospital Number: Repository [id number] Date:[id number], [place] [address]UN: 06/19/2017 Tertiary NOT GIVENMICHELINE MarteRio [place]ondo Insurance:SELF PAY [facility]: Effective Repository Date:2017-03-22
== END ==
PROVIDERS: Family Provider Internal Medicine; PCP Internal Medicine; Referring Provider Internal Medicine; Visit Provider Internal Medicine
DX: R91.1 Solitary pulmonary nodule (principal)
CPT/HCPCS: 78815; A9552

== ENCOUNTER → 2018-04-06 14:21 | Outpatient (CLI) | payer MEDICARE, OTHER, SELFPAY ==
[2018-03-13 09:15] VITALS: BMI 29.8
--- NOTE | 2018-04-06 14:28 | RAD_ITS ---
STUDY: X-RAY - THORACIC SPINE REASON FOR EXAM: Female, 82 years old. Pain after a fall TECHNIQUE: 2 view(s) of the thoracic spine were obtained. COMPARISON: None. FINDINGS: Normal kyphosis of the thoracic spine. There is a mild levoscoliosis. There is demineralization of the thoracic spine with endplate spondylosis. There is multilevel disc space narrowing of the thoracic spine. The soft tissue structures are unremarkable. RAD/Thoracic Spine 3 Views IMPRESSION: Multilevel degenerative changes Electronically Signed: Quique Daniel MD at 10:33 EST , Service support ,
--- NOTE | 2018-04-06 14:28 | RAD_ITS ---
HISTORY: pain in left scapula, fell in February COMPARISON: None FINDINGS: XR Scapula: Generalized bony demineralization consistent with the patient's age. No fracture or suspicious bony lesion. RAD/Scapula IMPRESSION: Negative left scapula. No fracture seen. at 5226 Reported and signed by: Carmelo Gomes MD Electronically Signed: Carmelo Gomes, at 3:55 EST Tel , Service support ,
== END ==
PROVIDERS: Family Provider Internal Medicine; PCP Internal Medicine; Referring Provider Internal Medicine; Visit Provider Internal Medicine
DX: R94.8 Abnormal results of function studies of other organs and systems (principal); M89.8X1 Other specified disorders of bone, shoulder
CPT/HCPCS: 72072; 73010

== ENCOUNTER → 2018-04-23 14:11 | Outpatient (CLI) | payer MEDICARE, OTHER, SELFPAY ==
--- NOTE | 2018-04-23 14:15 | CT_ITS ---
STUDY: CT ABDOMEN AND PELVIS WITH CONTRAST REASON FOR EXAM: Female, 82 years old. Abnormal tracer activity adjacent to the ascending colon on recent PET/CT RADIATION DOSAGE (If Supplied By Facility): CTDIvol = ( 18.09 ) mGy, DLP = ( 921.88 ) mGycm TECHNIQUE: Transaxial images were obtained from the lower chest to the upper thighs with oral contrast. 100 ml of Isovue 300 contrast was administered. Sagittal and coronal images were reconstructed. Individualized dose optimization techniques were used for this CT. COMPARISON: PET/CT scan dated April 02, 2018 FINDINGS: Lower chest: Lower lungs: Minimal dependent atelectasis in both lung bases. Pleura: No pleural effusion. Cardiac: Normal size heart. Scattered coronary artery calcifications. Liver: Few subcentimeter hypodensities, probable cysts. Spleen: Normal in appearance. Gallbladder and biliary system: Prior cholecystectomy. Pancreas: Normal in appearance. Adrenal glands: Normal in appearance. Kidneys and collecting systems: Right: Scattered benign cysts. No dilatation of collecting system. Left: Scattered benign cysts. No dilatation of collecting system. Gastrointestinal: Stomach: Normal in appearance. Small bowel: Normal in appearance. Colon: Diverticula distally without adjacent stranding. The cecum is positioned in the right upper abdomen posterior to the liver. There is mild scattered wall thickening in the cecum and ascending colon. Appendix: Normal in appearance. Axial images 22-29. Coronal images 71-76. Vessels: Arterial: Moderate scattered vascular calcifications. Venous: Incidental retroaortic left renal vein. Retroperitoneum/mesentery: Lymph nodes: Unremarkable. Fluid/free air: None. Pelvis: Bladder: Normal in appearance. Reproductive organs: Uterus normal in appearance. No abnormal masses in the adnexal regions. No pelvic free fluid. Soft tissues: Unremarkable. Bones: Mild degenerative changes. Marked degenerative disc changes at L4-5. CT/Abdomen/Pelvis WITH Contrast IMPRESSION: There are no discrete abnormalities adjacent to the ascending colon in the mid to lower right abdomen. There are scattered areas of mild wall thickening in the cecum and ascending colon, nonspecific in appearance and possibly representing a mild inflammatory or infectious colitis. There is no bowel obstruction. There is no ascites, free air or significant lymphadenopathy. Electronically Signed: Alisson Leiva MD at 15:03 EST Tel Direct: [phone], Service support ,
== END ==
PROVIDERS: Family Provider Internal Medicine; PCP Internal Medicine; Referring Provider Internal Medicine; Visit Provider Internal Medicine
DX: R93.89 Abnormal findings on diagnostic imaging of other specified body structures (principal)
CPT/HCPCS: 74177; Q9967

== ENCOUNTER → 2018-06-13 06:56 | Outpatient (CLI) | payer MEDICARE, OTHER, SELFPAY ==
--- NOTE | 2018-06-13 07:00 | ECHOD_ITS ---
Reason For Study: CHEST PAIN Procedure This was a 2D Doppler, Color Flow transthoracic echocardiogram. Exam performed in department. Left Ventricle Normal size and thickness. The estimated ejection fraction is 65 %. Stage 1 diastolic dysfunction. No regional wall motion abnormalities noted. Right Ventricle Normal size and thickness. Normal systolic function. Atria Normal left atrium. Normal right atrium. Normal atrial septum. Mitral Valve Mild diffuse mitral valve thickening. Trivial eccentric mitral valve insufficiency. Tricuspid Valve Normal tricuspid valve. Mild (1+) tricuspid valve insufficiency. Right ventricular systolic pressure estimated to be 49 mmHg. Moderate pulmonary hypertension. Aortic Valve Trisinus/trileaflet aortic valve. Moderate focal aortic valve thickening. Moderate restriction of the aortic valve. Moderate aortic stenosis. Peak aortic valve gradient 51 mmHg. Mean aortic valve gradient 29 mmHg. Calculated aortic valve area (continuity equation) is 1.0 cm2. Trivial aortic valve insufficiency. Pulmonic Valve Normal pulmonic valve. Great Vessels Normal aortic root. Mild atherosclerosis of the aortic arch. Normal inferior vena cava. Inferior vena cava collapse with sniff. Pericardium/Pleural No pericardial effusion. MMode/2D Measurements & Calculations LVIDd: 4.6 cm IVSd: 0.94 cm LVOT diam: 2.0 cm LVIDs: 2.7 cm LVPWd: 0.92 cm LVOT area: 3.1 cm2 RVDd: 3.5 cm FS: 41.7 % Ao root diam: 3.2 cm LAV(MOD-bp): 49.7 ml LA A4 area: 16.9 cm2 LAV(MOD-bp) Indexed: 28.5 ml/m2 LAV(MOD-sp2): 55.1 ml LAV(MOD-sp4): 39.7 ml LA dimension(2D): 3.3 cm RA A4 area: 11.0 cm2 Time Measurements MV dec time: 0.33 sec Doppler Measurements & Calculations MV E max enrique: 71.3 cm/sec Lat Peak E' Enrique: 7.3 cm/sec Med Peak E' Enrique: 7.5 cm/sec MV A max enrique: 105.3 cm/sec E/E' lat: 9.8 E/E' med: 9.5 MV E/A: 0.68 Ao V2 max: 341.9 cm/sec AI max enrique: 354.0 cm/sec LV V1 max: 119.9 cm/sec Ao max P.8 mmHg AI max P.1 mmHg LV V1 max P.7 mmHg Ao V2 mean: 258.1 cm/sec AI dec slope: 168.5 cm/sec2 LV V1 mean P.8 mmHg Ao mean P.1 mmHg AI P1/2t: 615.3 msec LV V1 mean: 77.5 cm/sec Ao V2 VTI: 90.7 cm LV V1 VTI: 29.8 cm SAMMY(I,D): 1.0 cm2 SAMMY(V,D): 1.1 cm2 SV(LVOT): 92.9 ml PA V2 max: 131.5 cm/sec TR max enrique: 331.2 cm/sec TR max P.9 mmHg Interpretation Summary The estimated ejection fraction is 65 %. Stage 1 diastolic dysfunction. Trivial eccentric mitral valve insufficiency. Mild (1+) tricuspid valve insufficiency. Right ventricular systolic pressure estimated to be 49 mmHg. Moderate pulmonary hypertension. Trivial aortic valve insufficiency. Moderate to severe aortic stenosis. Compared to echo report dated 01/03/2017, LV function has remained the same. Aortic valve gradients have mildly worsened and RVSP has increased from 34 to 49 mm Hg. Ordering Physician: Meli Gómze Referring Physician: Meli Gómez Performed By: Sonali Tam RDCS
--- NOTE | 2018-06-13 12:54 | STRESSREP ---
Stress Test Report Pharmacologic myocardial perfusion stress test. 82-year-old lady with a history of chest pain. Protocol: Resting EKG demonstrates normal sinus rhythm with a rate of 63 bpm. Resting blood pressure 148/82 mmHg. 0.4 mg of regadenoson was infused per usual protocol. 0.4 mg of regadenoson was infused per usual protocol. At peak infusion intravenous Lasix was injected. The maximum heart rate attained was 86 bpm which is 62% of maximum predicted heart rate the maximum workload was 1 metabolic equivalent. Patient maintained sinus rhythm throughout the recording. At rest and during infusion there were no ST or T wave changes noted suggest ischemia. The resting blood pressure 140/88 with a peak blood pressure 148/84. No clinical angina was noted per Myocardial perfusion protocol. 11.6 mCi of technetium 99m sestamibi was injected at rest. 0.4 mg of regadenoson was infused per usual protocol peak infusion 32.2 mCi of technetium 99m sestamibi was injected stress images were obtained stress and rest images were reconstructed and compared in the short axis vertical long and horizontal long axis. Gated images were also obtained Perfusion SPECT analysis: Review of the stress images demonstrate normal uptake of tracer noted in all areas of the myocardium. The resting images similarly demonstrate normal uptake of tracer noted in all areas of the myocardium. No areas of reversibility are noted suggest ischemia no previous infarct is noted. Gated SPECT analysis: The gated ejection fraction is noted to be 76%. Conclusion: Normal pharmacologic myocardial perfusion stress test. Preserved ejection fraction.
== END ==
PROVIDERS: Family Provider Internal Medicine; PCP Internal Medicine; Referring Provider Internal Medicine; Visit Provider Internal Medicine
DX: R07.9 Chest pain, unspecified (principal)
CPT/HCPCS: 78452; 93017; 93306; A9500; A4216; J2785

== ENCOUNTER → 2018-06-22 11:52 | Outpatient (CLI) | payer MEDICARE, OTHER, SELFPAY ==
--- NOTE | 2018-06-22 11:55 | BI_ITS ---
MAMMOGRAPHY - BILATERAL SCREENING REASON FOR EXAM: Female, 82 years old. Routine annual screening examination. PERTINENT HISTORY: Non-contributory. History of lung cancer. TECHNIQUE: Digital bilateral breast patti (3D mammographic acquisition) in the CC and MLO projections. 2-D mediolateral oblique (MLO) and craniocaudad (CC) views of both breasts were obtained. CAD: Full Field Digital Mammography with Computer Added Detection was performed. COMPARISON: Comparison is made with prior study dated June 19, 2017 and April 22, 2016. FINDINGS: Breast Composition: The breasts are almost entirely fatty. There are no dominant masses or suspicious calcifications. Stable 4.6 mm x 5.3 mm well-defined nodule in the central lateral portion of the left breast. This is suggestive of a small lymph node. No other significant abnormalities are identified. There has been no significant change since the prior study. BI/SCREENING MAMM (CAD), BILAT IMPRESSION: Stable bilateral screening mammogram. Yearly follow-up mammogram recommended. (A) ASSESSMENT CATEGORY: BIRADS Category 2: Benign. A letter regarding these results will be sent to the patient by the facility within 30 days. Approximately 10% of breast cancers are not detected by mammography. A normal mammogram should not delay biopsy of a clinically suspicious abnormality. [id number] Electronically Signed: Blaine Victor, at 15:23 EST , Service support ,
== END ==
PROVIDERS: Family Provider Internal Medicine; PCP Internal Medicine; Referring Provider Internal Medicine; Visit Provider Internal Medicine
DX: Z12.31 Encounter for screening mammogram for malignant neoplasm of breast (principal); R07.9 Chest pain, unspecified; R91.1 Solitary pulmonary nodule; R94.8 Abnormal results of function studies of other organs and systems
CPT/HCPCS: 77063; 77067

== ENCOUNTER → 2018-07-13 14:15 | Outpatient (CLI) | payer MEDICARE, OTHER, SELFPAY ==
[2018-06-27 13:49] VITALS: BMI 29.6
--- NOTE | 2018-07-13 14:17 | CT_ITS ---
STUDY: CT CHEST WITHOUT CONTRAST REASON FOR EXAM: Female, 82 years old. History of lung cancer with lung resection, lung nodule follow-up RADIATION DOSAGE (If Supplied By Facility): CTDIvol = ( 13.65 ) mGy, DLP = ( 470.65 ) mGycm TECHNIQUE: Transaxial imaging was performed without the administration of intravenous contrast material. Multiplanar coronal and sagittal images were reformatted. Individualized dose optimization techniques were used for this CT. COMPARISON: 04/03/[address], 04/02/2018 PET scan; chest CTA of 03/16/2018 FINDINGS: Surgical sutures of the right infrahilar region with elevation of the right hemidiaphragm compatible with prior right lower lobectomy. Diffuse emphysematous changes of the lungs are once again identified with emphysematous bleb formation. Soft tissue nodule in the right upper lobe on axial image 140 of the prior chest CTA (2018) has decreased in size and is visible on image 48 of the current study, currently measuring 5 mm and is contiguous with the inferior border of a relatively sizable parenchymal bleb/bulla. No new pulmonary nodules identified. No new pulmonary nodule detected. There is no demonstrated pleural abnormality. Normal heart and pericardium. Normal mediastinum. Normal hilar regions. Normal unenhanced pulmonary arteries. There is atherosclerotic calcification of the aortic arch with tortuosity and elongation of the aortic arch and descending thoracic aorta. There are multi-level degenerative changes of the thoracic spine. There is no demonstrated abnormality of the visualized upper abdomen. CT/Chest without Contrast IMPRESSION: 1. Since 03/16/2018 CTA chest (and 2018 PET scan), FAVORABLE change. Decreased size of right upper lobe noncalcified pulmonary nodule currently measuring 5 mm (previously measured up to 12 mm). 2. Right lower lobectomy Electronically Signed: Demetrius Parham MD at 13:33 EDT , Service support ,
== END ==
PROVIDERS: Family Provider Internal Medicine; PCP Internal Medicine; Referring Provider Internal Medicine; Visit Provider Internal Medicine
DX: R91.1 Solitary pulmonary nodule (principal)
CPT/HCPCS: 71250

== ENCOUNTER → 2018-07-18 10:37 | Outpatient (CLI) | payer MEDICARE, OTHER, SELFPAY ==
[2018-06-27 13:49] VITALS: BMI 29.6
--- NOTE | 2018-07-18 10:55 | CT_ITS ---
STUDY: CT ABDOMEN AND PELVIS WITH CONTRAST REASON FOR EXAM: Female, 82 years old. Right lower quadrant pain. RADIATION DOSAGE (If Supplied By Facility): CTDIvol = ( 18.50 ) mGy, DLP = ( 892.00 ) mGycm TECHNIQUE: Transaxial images were obtained from the dome of the diaphragm to the symphysis pubis with oral contrast. 100mL IV/Oral Isovue 300 was administered. Sagittal and coronal images were reconstructed. Individualized dose optimization techniques were used for this CT. COMPARISON: Comparison is made with prior study dated April 23, 2018. FINDINGS: Mild degree of increased markings at the right lung base suggestive of scarring. Coronary artery calcification. Normal liver. There is evidence of colonic interposition. The patient is status post cholecystectomy. The common bile duct measures 8.2 mm in transverse dimension most likely secondary to the post cholecystectomy state. Normal spleen. Normal pancreas. Normal bilateral adrenal glands. There is a 2.9 cm x 2.2 cm cyst in the anterior midportion of the right kidney. 1 cm cyst in the anterior aspect of the left kidney. Normal visualized stomach. Normal small intestine. Normal colon. The appendix is visualized and appears normal. Normal abdominal aorta. Normal inferior vena cava. Normal retroperitoneum. Distended urinary bladder. Normal abdominal wall. There are mild degenerative changes of the visualized lumbar spine. CT/Abdomen/Pelvis WITH Contrast IMPRESSION: Distended urinary bladder. Stable bilateral renal cysts. Electronically Signed: Blaine Victor, at 13:42 EDT , Service support ,
[2018-07-18 11:42] LABS: Color, Urine Yellow (Yellow); Glucose, Dipstick Normal (Normal); Ketone-Dipstick Negative (Negative); Leukocyte Esterase-Dipstick 25 /ul (Negative); Nitrite-Dipstick Negative (Negative); Occult Blood-Urine Negative /ul (Negative); Protein-Dipstick Negative (Negative); Specific Gravity, Urine 1.015 (1.002-1.030); Urine Bilirubin Dipstick Negative (Negative); Urine Clarity Sl. Cloudy (Clear); Urine Urobilinogen Normal (Normal)
[2018-07-18 11:46] LABS: Erythrocyte Sedimentation Rate 12 mm/hr (0-30)
[2018-07-18 11:48] LABS: Absolute Lymphocyte Count 1.61 X10^3/ul (0.83-4.51); Basophil# 0.04 X10^3/uL; Basophil% 0.5 % (0-1); Eosinophil# 0.23 X10^3/uL; Hematocrit 43.1 % (37-47); Hemoglobin 14.3 g/dl (12.0-15.0); Lymphocyte # 1.61 X10^3/ul (4.0); Mean Corp Hgb Conc 33.2 g/gl (32-36); Mean Corpuscular Hgb 31.2 pg (27.0-32.0); Mean Corpuscular Volume 93.9 fL (81-99); Mean Platelet Vol. 12.3 fl (6.2-12.0); Monocyte# 0.77 X10^3/uL; Neutrophil # 5.02 X10^3/uL (2.7-7.7); Neutrophil % 65.4 % (47-70); POSITIVE COUNT NO; POSITIVE DIFFERENTIAL NO; POSITIVE MORPHOLOGY NO; Platelet Count 218 K/mm3 (150-450); RBC Distribution Width CV 14.4 % (11.6-14.6); RBC Distribution Width SD 49.2 fl (35.1-43.9); Red Blood Count 4.59 M/mm3 (4.2-5.4); White Blood Count 7.7 K/mm3 (4.4-11.0)
[2018-07-18 12:51] LABS: AST(SGOT) 19 U/L (15-37); Alanine Aminotransfer ALT/SGPT 26 U/L (13-56); Albumin, Serum 3.6 g/dL (3.2-5.0); Alkaline Phosphatase 106 U/L (45-117); Anion Gap 8 (5-15); BUN 14 mg/dL (7-18); BUN/Creat Ratio 19.6 RATIO (10-20); CRP < 2.90 mg/L (0.0-3.0); Calcium,Total 9.1 mg/dL (8.5-10.1); Chloride 105 mmol/L (98-107); Creatinine, Serum 0.71 mg/dL (0.55-1.02); EST Glomerular Filtration Rate 83 mL/min (>60); Est Glom Filt Rate - Afr Amer 100 mL/min (>60); Globulin 3.5 g/dL (2.2-4.2); Glucose 87 mg/dL (74-106); Protein, Total 7.1 g/dL (6.4-8.2); Sodium Level 140 mmol/L (136-145)
== END ==
PROVIDERS: Family Provider Internal Medicine; PCP Internal Medicine; Referring Provider Internal Medicine; Visit Provider Internal Medicine
DX: R10.31 Right lower quadrant pain (principal)
CPT/HCPCS: 36415; 74177; 80053; 81002; 85025; 85652; 86140; 87086; 87088; Q9967

== ENCOUNTER → 2018-08-06 | Outpatient (CLI) | payer MEDICARE, OTHER, SELFPAY ==
[2018-08-01 13:17] VITALS: BMI 29.6
--- NOTE | 2018-08-06 08:15 | PET_ITS ---
EXAMINATION: FDG PET CT INDICATIONS: An 82-year-old female with history of carcinoma of the lung presenting for restaging examination. COMPARISON EXAMINATION: Previous FDG PET study dated 04/02/18, CT of the chest report dated 07/13/18, CT of the abdomen and pelvis report dated 07/18/18. TECHNIQUE: Following the intravenous administration of 15.87 mCi of F-18 deoxyglucose via the left wrist, multiplanar image acquisitions of the neck, chest, abdomen and pelvis to level of mid thigh, obtained at one hour post radiopharmaceutical administration contemporaneously interpreted with the current CT of the neck, chest, abdomen and pelvis to level of mid thigh, dated 08/06/18 via coregistration and previous FDG PET study dated 04/02/18, CT of the chest report dated 07/13/18, CT of the abdomen and pelvis report dated 07/18/18 reveal: SERUM GLUCOSE LEVEL: 96 mg/dl. HEIGHT: 62 inches. WEIGHT: 167 lbs. FINDINGS: 1. There is no quantitative scintigraphic evidence of abnormal increased glucose metabolism on meticulous inspection of whole body acquisitions to include all three axis reconstructions. 2. Normal physiologic distribution of the radiopharmaceutical is apparent in the hepatic and splenic parenchyma, both renal units, bladder and visualized intestinal tract. There is uniform distribution of the radiopharmaceutical concentration defined in the visualized cerebellar hemispheres and cerebral cortical structures.? Diffuse intestinal tract activity is noted throughout all four quadrants of the abdominal-pelvic retroperitoneum, mesentery consistent with normal physiologic distribution of the radiopharmaceutical. The previously identified third thoracic vertebral and left scapular hypermetabolic foci noted on the FDG PET study dated 04/02/18 are not apparent on the current examination. The prior defined morphologic-anatomic changes noted on CT of the neck, chest, abdomen and pelvis manifest on the FDG PET CT study dated 04/02/18 are essentially unchanged on the present examination. PET/PET/CT Tumor Base -Thigh Subs IMPRESSION: 1. NEGATIVE EXAMINATION. There is no definitive quantitative scintigraphic evidence of recurrent-metastatic viable neoplasm. 2. There is interim metabolic resolution of the previously identified third thoracic vertebral and left scapular osseous metabolic abnormalities. 3. Overall, compared to the prior FDG PET study dated 04/02/18, there is current absence of defined viable neoplastic disease with an interim quantitative complete metabolic response relating to the prior defined osseous metabolic abnormalities. Electronic Signature Gordy Ahuja D.O. Electronically Signed: Gordy Ahuja DO at 22:43 EDT Tel , Service support ,
== END | disposition home or self-care (01) ==
LOC: ONC 07:34
PROVIDERS: Family Provider Internal Medicine; PCP Internal Medicine; Referring Provider Internal Medicine; Visit Provider Internal Medicine
DX: C34.31 Malignant neoplasm of lower lobe, right bronchus or lung (principal); Z85.118 Personal history of other malignant neoplasm of bronchus and lung
CPT/HCPCS: 78815; A9552

== ENCOUNTER 2018-08-09 05:54 | Day surgery (SDC) | payer MEDICARE, OTHER, SELFPAY ==
[2018-08-01 13:17] VITALS: BMI 29.6
--- NOTE | 2018-08-01 13:23 | HP_ITS ---
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 Is patient in pain?: No Allergies albuterol sulfate [From DuoNeb] Allergy (Verified 08/01/18 13:14) Other ipratropium bromide [From DuoNeb] Allergy (Verified 08/01/18 13:14) Other morphine Allergy (Verified 08/01/18 13:14) UNCONTROLLED BEHAVIOR DANISH Inhibitors Adverse Reaction (Intermediate, Verified 08/01/18 13:14) cough Medications Diltiazem HCl [Cardizem Cd] 360 mg PO DAILY 07/11/14 [History Confirmed 08/01/18] Multivit-Min/FA/Lycopene/Lut [Centrum Silver Tablet] 1 ea PO DAILY 07/11/14 [History Confirmed 08/01/18] Albuterol IH (ProAir) [Proair Hfa] 2 puff INHALATION 4X/DAY #0 10/03/15 [Rx Confirmed 08/01/18] Potassium Chloride [K-Dur] 40 meq PO BIDCM tab 10/08/15 [Rx Confirmed 08/01/18] traZODone [Desyrel] 100 mg PO QHS tab 10/08/15 [Rx Confirmed 08/01/18] aspirin 81 mg tablet,delayed release 81 mg PO DAILY 06/26/18 [History Confirmed 08/01/18] celecoxib 200 mg capsule 200 mg PO DAILY 06/26/18 [History Confirmed 08/01/18] fluticasone furoate 200 mcg-vilanterol 25 mcg/dose inhalation powder 1 inh INHALATION DAILY 06/26/18 [History Confirmed 08/01/18] hydrochlorothiazide 25 mg tablet 25 mg PO DAILY 06/26/18 [History Confirmed 08/01/18] omeprazole 20 mg capsule,delayed release 20 mg PO DAILY 06/26/18 [History Confirmed 08/01/18] rosuvastatin 5 mg tablet 5 mg PO DAILY 06/26/18 [History Confirmed 08/01/18] umeclidinium 62.5 mcg/actuation blister powder for inhalation 1 inh INHALATION DAILY 06/26/18 [History Confirmed 08/01/18] vit C 250 mg-E 200 unit-zinc 40 mg-copper 1 rx-[id number] capsule 1 tab PO BID 06/26/18 [History Confirmed 08/01/18] levothyroxine 112 mcg tablet 112 mcg PO QHS 06/27/18 [History Confirmed 08/01/18] olmesartan 20 mg tablet 20 mg PO .COMPLEX tab 06/27/18 [History Confirmed 08/01/18] Is last menstrual period known: No Post menopausal: Yes Patient : No PFSH Medical History Non-rheumatic aortic stenosis (Chronic) Secondary pulmonary arterial hypertension (Chronic) Essential hypertension (Chronic) Hyperlipidemia (Chronic) COPD (chronic obstructive pulmonary disease) (Chronic) CRF (chronic renal failure) (Chronic) GERD (gastroesophageal reflux disease) (Chronic) Hypothyroidism (Chronic) Macular degeneration (Chronic) Occlusion and stenosis of bilateral carotid arteries (Chronic) Osteoarthritis (Chronic) PVD (peripheral vascular disease) (Chronic) Personal history of transient ischemic attack (TIA), 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) Acute respiratory failure with hypoxemia (Resolved) Constipation (Resolved) Cough (Resolved) Pneumonia (Resolved) Seasonal allergies (Resolved) Surgical History History of lobectomy of lung (Acute) History of cataract extraction (Resolved) History of cholecystectomy (Resolved ~2009) History of tonsillectomy (Resolved) History of total left knee replacement (Resolved) History of tubal ligation (Resolved) Status post total right knee replacement (Resolved) lung cancer 2011 rll lobectemy (Resolved) Family History Mother Liver failure Brother Myasthenia gravis Pacemaker Sister CAD (coronary artery disease) CABG x 4 CVA (cerebral vascular accident) Father Colon cancer Social History Smoking Status: Former smoker how long ago did patient quit smokin years ago alcohol intake: current alcohol intake frequency: holidays/special occasions only Alcohol type: wine caffeine: Yes Type: coffee Number of servings: 2 HPI HPI HPI: AYAD BA, is a 82 F who presents to the office today for HPI HPI Surgical H&P: Yes HPI: AYAD BA, is a 82 F who presents to the office today for for evaluation of right lower abdominal pain. This pain is been going on since the end of last year. Patient ended up getting a PET scan which showed an abnormality located within the right upper hemithorax as well as prominent glucose concentration in the right upper pelvis mesentery contiguous to the proximal ascending colon this was followed up in April with a CAT scan of the abdomen and pelvis which showed there was no discrete abnormality in the adjacent area to the ascending colon in the middle to lower right of the abdomen. There was scattered mild wall thickening of the cecum and ascending colon nonspecific appearance possibly representing either inflammatory or infectious colitis. This was subsequently followed up in July with a repeat CAT scan which showed resolution of the findings that were seen in the April CAT scan. She has a family history of colon cancer. Her last colonoscopy was more than 3 years ago. She has had no blood in her stools she has had no complaints of nausea vomiting or diarrhea. She has had no change in her bowel habits although she tends to be more constipated. ROS General General: No weight change, appetite, fatigue, colon cancer, breast cancer or weakness HEENT HEENT: Yes eye surgery; no difficulty swallowing, eye injury, swollen glands or hoarseness Endo Endocrine: Yes thyroid disease; no diabetes mellitus, thyroid cancer, Hair loss, heat intolerance or cold intolerance Cardio Cardiovascular: Yes murmur, high blood pressure and heart attack; no pacemaker, heart disease, atrial fibrillation, heart stent, palpitations, shortness of breat with exertion or chest pain Resp Respiratory: Yes shortness of breath, No sleep apnea, No cough, No COPD, No asthma, Yes emphysema, No wheezing Gastro Gastrointestinal: Yes abdominal pain, No nausea or vomiting, No diarrhea, No constipation, No blood in stool, No acid reflux, No hemorrhoids, No ulcers, No gallbladder problem, No black,tarry stools Neuro Neurologic: No weakness Exam Const General: no acute distress, well developed, well hydrated Orientation: oriented to person, oriented to place, oriented to time [facility] Head: normocephalic, atraumatic Ears: external ears normal Mouth: moist mucous membranes Eyes Sclera: sclerae normal Pupils: normal by confrontation Neck Neck: no lymphadenopathy noted Neck mass: No Thyroid: thyroid normal, symmetrical Chest Chest palpation & inspection: normal inspection of the chest Resp Effort & Inspection: normal respiratory effort Auscultation: clear to auscultation bilaterally Percussion: percussion normal Cardio Rate: regular rate Rhythm: regular rhythm Heart Sounds: murmur GI Palpation: soft, no hepatosplenomegaly, no masses, tender in the RLQ Rectal Exam: other Other: Rectal exam deferred. Feel no palpable masses in her abdomen. It is very soft Extrem General: normal to inspection, no clubbing, cyanosis or edema Assessment & Plan Problems 1. Right lower quadrant abdominal pain R10.[address] scan R93.5 Plan I have discussed the above with the patient. I have offered the patient colonoscopy for evaluation. I have explained the risks/benefits of the procedure and described the procedure. I have discussed the risks with the patient, including but not limited to: infection, bleeding, perforation of the GI tract requiring emergency surgery, inability to complete the procedure, injury to any internal organs, complications of anesthesia, etc. - the patient understands and agrees to proceed. I have answered all the patient's questions to the patient's satisfaction and the patient has no further questions. The patient has been given instructions for the colon cleansing preparation. She will be off of her aspirin for 7 days prior to the procedure we may end up doing random colon biopsies. Coding Level of Care Code Off vis,new,level 3 Diagnoses Right lower quadrant abdominal pain R10.[address] scan R93.5
[2018-08-09] VITALS (7 sets, daily range): BP systolic 117–127; BP diastolic 75–90; PULSE 75–79; RESP 16–75; TEMP 36.1–36.7; O2SAT 90–96; BMI 29.2
--- NOTE | 2018-08-09 06:30 | COLBX_PTH ---
PATIENT: AYAD BA LOC: EN U#:[id number] AGE/SX: 83/F ROOM: RE08/09/[address]: Dr. Miguel Godinez MD : [id number] BED: DIS: 08/09/2018 SPEC #: [id number] RECD: 08/09/18 14:21 STATUS: FELIX RESho #: [id number] JAH: 08/09/18 06:[address]: Miguel Godinez DEPT: SURGICAL PATHOLOGY RECD BY: Damian Tellez ENTERED: 08/10/18 09:04 SP TYPE: COLON BX OTHR DR: Dr. Meli Gómez DO Tissues: A - COLON BIOPSY B - Transverse colon Procedures: Surgery Specimen Level IV HEADER OPERATION: Colonoscopy (MAC) PRE-OP DIAGNOSIS: Abdominal pain TISSUE SUBMITTED: A - Random colon biopsies of cecum and ascending colon, B - Transverse colon mass biopsy MICROSCOPIC DIAGNOSIS A. 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 B. Transverse colon mass, biopsy: Fragments of tubulovillous adenoma. 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 Negative for invasive carcinoma. JAMILAH:bolivar 08/13/18 COMMENT B. Correlation with clinical, endoscopic findings and appropriate follow up are necessary. MICROSCOPIC DESCRIPTION Slides are reviewed. GROSS DESCRIPTION A -Received in fixative is one container labeled with the patient's name and designated random colon biopsy. The specimen consists of two irregular fragments of light lan soft tissue that in aggregate measure 0.5 x 0.3 x 0.1 cm. The specimen is totally submitted in one cassette. B - Received in fixative is one container labeled with the patient's name and designated transverse colon mass. The specimen consists of multiple irregular fragments of light lan soft tissue that in aggregate measure 1 x 0.5 x 0.1 cm. The specimen is totally submitted in one cassette. / JAMILAH:bolivar 08/10/18 TC:1 CPT: 38220 x2
--- NOTE | 2018-08-09 07:02 | OP.ENDO_ITS ---
08/09/2018 Meli Gómez Re : Colonoscopy procedure for Myrna Gómez This procedure was performed on July. My impressions and recommendations are as follows: Impressions : - Rule out malignancy, tumor in the proximal transverse colon. Biopsied. SKIP. - Diverticulosis in the sigmoid colon and in the descending colon. No specimens collected. - Melanosis in the colon. Biopsied. - The examination was otherwise normal. Recommendations : - Discharge patient to home. - Resume previous diet. - Continue present medications. - Await pathology results. - Repeat colonoscopy in 3 years for surveillance based on pathology results. - Return to my office in 1 week. My findings are described in the full procedure note, which is enclosed. If I can be of further assistance, please feel free to contact me at Doctor phone number(s): , Fax: [phone], Work: . Sincerely, MD Miguel Godoy MD 08/09/2018 7:02:09 AM This report has been signed electronically.
--- NOTE | 2018-08-09 08:05 | RAD_ITS ---
STUDY: X-RAY - ABDOMEN/PELVIS REASON FOR EXAM: Female, 83 years old. Post colonoscopy TECHNIQUE: 4 AP films COMPARISON: None. FINDINGS: Normal visualized lung bases. There is gaseous distention of the colon, most compatible with a colonic ileus. There is no demonstrated free abdominal air. The visualized liver, spleen and kidneys are grossly normal in size and morphology. Normal soft tissue structures. There are diffuse degenerative changes of the visualized lumbar spine. RAD/Abd Inc Decub and/or Erect IMPRESSION: Colonic ileus, no demonstrated obstruction or free air Electronically Signed: Quique Daniel MD at 9:28 EDT , Service support ,
== END 2018-08-09 08:03 | disposition home or self-care (01) ==
LOC: EN 05:54 → AC 05:55
PROVIDERS: Family Provider Internal Medicine; PCP Internal Medicine; Referring Provider Internal Medicine; Visit Provider Surgery
PROC: 0DJD8ZZ Inspection of Lower Intestinal Tract, Via Natural or Artificial Opening Endoscopic (ICD-10-PCS; CPT 45378; principal; 2018-08-09 06:25)
DX: D37.4 Neoplasm of uncertain behavior of colon (principal); K57.30 Diverticulosis of large intestine without perforation or abscess without bleeding; I35.0 Nonrheumatic aortic (valve) stenosis; I27.21 Secondary pulmonary arterial hypertension; E78.00 Pure hypercholesterolemia, unspecified; I12.9 Hypertensive chronic kidney disease with stage 1 through stage 4 chronic kidney disease, or unspecified chronic kidney disease; N18.9 Chronic kidney disease, unspecified; K21.9 Gastro-esophageal reflux disease without esophagitis; E03.9 Hypothyroidism, unspecified; H35.30 Unspecified macular degeneration; M19.90 Unspecified osteoarthritis, unspecified site; I73.9 Peripheral vascular disease, unspecified; I25.2 Old myocardial infarction; J43.9 Emphysema, unspecified; Z86.73 Personal history of transient ischemic attack (TIA), and cerebral infarction without residual deficits; Z87.09 Personal history of other diseases of the respiratory system; Z87.01 Personal history of pneumonia (recurrent); Z85.828 Personal history of other malignant neoplasm of skin; Z85.118 Personal history of other malignant neoplasm of bronchus and lung; Z90.2 Acquired absence of lung [part of]; Z90.49 Acquired absence of other specified parts of digestive tract; Z80.0 Family history of malignant neoplasm of digestive organs; Z78.0 Asymptomatic menopausal state; Z79.82 Long term (current) use of aspirin; Z79.899 Other long term (current) drug therapy; Z87.891 Personal history of nicotine dependence
CPT/HCPCS: 45380; 74019; 88305; J7120; J1610

== ENCOUNTER 2018-09-25 05:42 | Inpatient (IN) | payer MEDICARE, OTHER, SELFPAY ==
[2018-09-02 11:20] VITALS: BMI 29.2
[2018-09-21 13:06] VITALS: BP 124/77; PULSE 57; RESP 18; TEMP 36.4; O2SAT 96; BMI 29.9
--- NOTE | 2018-09-21 14:17 | SDCEKG_ITS ---
Test Reason : Blood Pressure : / mmHG Vent. Rate : 063 BPM Atrial Rate : 063 BPM P-R Int : 182 ms QRS Dur : 096 ms QT Int : 428 ms P-R-T Axes : 052 007 032 degrees QTc Int : 437 ms Normal sinus rhythm Possible Left atrial enlargement Nonspecific ST and T wave abnormality Abnormal ECG Confirmed by NONI REDMOND, SHARON ([id number]), deputy editor in chief CARROLL TAYLOR ([id number]) on 09/25/2018 8:56:08 AM Referred By: Miguel Godinez Confirmed By:SHARON CHENEY MD
[2018-09-21 15:19] LABS: Thyroid Stim Hormone (TSH) 2.23 uIU/mL (0.358-3.74)
[2018-09-25] VITALS (25 sets, daily range): BP systolic 90–119; BP diastolic 38–67; PULSE 64–79; RESP 10–20; TEMP 36.1–37.2; O2SAT 90–98; BMI 29.9
[2018-09-25] MEDS: Gabapentin 600 MG Tablet PO (06:38)
[2018-09-25] MEDS: Acetaminophen 500 MG Tablet 1000 MG PO ×2 (06:38→17:13)
--- NOTE | 2018-09-25 06:50 | PCM.HP.BLA ---
History and Physical Date of Admission: 09/25/18 [facility] [address] [place] [address] OFFICE VISIT Date of Service: 08/30/18 MR#: [id number] Acct: [id number] Name: AYAD BA Rep #: [id number] : 1935 Provider: Miguel Godinez MD Age/Sex: 83/F [facility] Status: Signed Intake Intake Visit Reasons: questions regarding diagnosis Chief Complaint: right mid abd pain Allergies albuterol sulfate [From DuoNeb] Allergy (Verified 08/16/18 13:03) Other ipratropium bromide [From DuoNeb] Allergy (Verified 08/16/18 13:03) Other morphine Allergy (Verified 08/16/18 13:03) UNCONTROLLED BEHAVIOR DANISH Inhibitors Adverse Reaction (Intermediate, Verified 08/16/18 13:03) cough Medications Diltiazem HCl [Cardizem Cd] 360 mg PO DAILY 07/11/14 [History Confirmed 08/16/18] Multivit-Min/FA/Lycopene/Lut [Centrum Silver Tablet] 1 ea PO DAILY 07/11/14 [History Confirmed 08/16/18] Albuterol IH (ProAir) [Proair Hfa] 2 puff INHALATION 4X/DAY #0 10/03/15 [Rx Confirmed 08/16/18] Potassium Chloride [K-Dur] 40 meq PO BIDCM tab 10/08/15 [Rx Confirmed 08/16/18] traZODone [Desyrel] 100 mg PO QHS tab 10/08/15 [Rx Confirmed 08/16/18] aspirin 81 mg tablet,delayed release 81 mg PO DAILY 06/26/18 [History Confirmed 08/16/18] celecoxib 200 mg capsule 200 mg PO DAILY 06/26/18 [History Confirmed 08/16/18] fluticasone furoate 200 mcg-vilanterol 25 mcg/dose inhalation powder 1 inh INHALATION DAILY 06/26/18 [History Confirmed 08/16/18] hydrochlorothiazide 25 mg tablet 25 mg PO DAILY 06/26/18 [History Confirmed 08/16/18] omeprazole 20 mg capsule,delayed release 20 mg PO DAILY 06/26/18 [History Confirmed 08/16/18] rosuvastatin 5 mg tablet 5 mg PO DAILY 06/26/18 [History Confirmed 08/16/18] umeclidinium 62.5 mcg/actuation blister powder for inhalation 1 inh INHALATION DAILY 06/26/18 [History Confirmed 08/16/18] vit C 250 mg-E 200 unit-zinc 40 mg-copper 1 it-mgqjhd-ojlhit capsule 1 tab PO BID 06/26/18 [History Confirmed 08/16/18] levothyroxine 112 mcg tablet 112 mcg PO QHS 06/27/18 [History Confirmed 08/16/18] Calcium Carbonate [Calcium] 600 mg PO DAILY 08/07/18 [History Confirmed 08/16/18] Valsartan 10 mg PO QHS 08/07/18 [History Confirmed 08/16/18] Valsartan 20 mg PO BREAKFAST 08/07/18 [History Confirmed 08/16/18] [facility] Medical History Non-rheumatic aortic stenosis (Chronic) Secondary pulmonary arterial hypertension (Chronic) Essential hypertension (Chronic) Hyperlipidemia (Chronic) COPD (chronic obstructive pulmonary disease) (Chronic) CRF (chronic renal failure) (Chronic) GERD (gastroesophageal reflux disease) (Chronic) Hypothyroidism (Chronic) Macular degeneration (Chronic) Occlusion and stenosis of bilateral carotid arteries (Chronic) Osteoarthritis (Chronic) PVD (peripheral vascular disease) (Chronic) Personal history of transient ischemic attack (TIA), 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) Acute respiratory failure with hypoxemia (Resolved) Constipation (Resolved) Cough (Resolved) Pneumonia (Resolved) Seasonal allergies (Resolved) Surgical History History of colonoscopy (Acute ~08/09/18) History of lobectomy of lung (Acute) History of cataract extraction (Resolved) History of cholecystectomy (Resolved ~2009) History of tonsillectomy (Resolved) History of total left knee replacement (Resolved) History of tubal ligation (Resolved) Status post total right knee replacement (Resolved) lung cancer 2011 rll lobectemy (Resolved) Family History Mother Liver failure Brother Myasthenia gravis Pacemaker Sister CAD (coronary artery disease) CABG x 4 CVA (cerebral vascular accident) Father Colon cancer Social History Smoking Status: Former smoker how long ago did patient quit smokin years ago alcohol intake: current alcohol intake frequency: holidays/special occasions only Alcohol type: wine caffeine: Yes Type: coffee Number of servings: 2 HPI HPI HPI: AYAD BA, is a 83 F who presents to the office today for HPI HPI Surgical H&P: Yes HPI: AYAD BA, is a 83 F who presents to the office today for follow-up from a colonoscopy which was completed it [facility] on 08/09/2018. The patient was noted to have a fungating nonobstructing medium-sized mass found in the proximal transverse colon. The mass was partially circumferentially involving about a third of the colon and measured approximately 3 cm in length and approximately 5 mm to a centimeter in width. I biopsied this with cold biopsy forceps. 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 In addition I also put a clip on this and took an x-ray which did confirm it being in the proximal transverse colon near the hepatic flexure. Patient has been moving her bowels appropriately. She is not experiencing any abdominal pain. She has not noticed any bleeding Patient was scheduled to go and see a employee relations consultant for possible endoscopic removal. However with further thought the patient has decided that it would be best for her to undergo a laparoscopic right hemicolectomy. Exam Const General: no acute distress, well developed, well hydrated Orientation: oriented to person, oriented to place, oriented to time [facility] Head: normocephalic, atraumatic Ears: external ears normal Mouth: moist mucous membranes Eyes Sclera: sclerae normal Pupils: normal by confrontation Neck Neck: no lymphadenopathy noted Neck mass: No Thyroid: thyroid normal, symmetrical Chest Chest palpation & inspection: normal inspection of the chest Resp Effort & Inspection: normal respiratory effort Auscultation: clear to auscultation bilaterally Percussion: percussion normal Cardio Rate: regular rate Rhythm: regular rhythm GI Palpation: soft, no hepatosplenomegaly, no masses, nontender Rectal Exam: other Other: Rectal exam deferred. Extrem General: normal to inspection, no clubbing, cyanosis or edema Assessment & Plan Problems 1. Tubulovillous adenoma of colon D12.6 Plan Did discuss the anatomy and procedure: laparoscopic right colectomy, possible open with the patient. Including risks, but not limited to, bleeding, infection (superficial or intraabdominal), injury to another organ (small bowel, colon, ureter, etc.) requiring additional procedures, and blood clots. Also, discussed the pre-op, colon prep and antibiotics. All questions were answered. Coding Level of Care Code Off vis,est,level 3 Diagnoses Tubulovillous adenoma of colon D12.6 09/02/18 1121 <Electronically signed by Miguel Godinez MD> Date Miguel Godinez MD Cosigner Signature: Date (if applicable) CC: Meli Gómez DO ~ I have re-examined the patient. There are no clinical changes since date of exam.
[2018-09-25] MEDS: Scopolamine 1mg/72hr Patch 1 PATCH TRANSDERM. (06:51)
[2018-09-25 06:55] LABS: Bedside Glucose 117 mg/dL (70-110)
[2018-09-25] MEDS: Magnesium Sulfate 4gm/100mL 4 GM/100 ML IV.SOLN. IV (06:55)
[2018-09-25] MEDS: Lactated Ringers 1,000 ML 40 ML IV (06:56)
[2018-09-25] MEDS: Bupivacaine 0.25% 30 ML Vial (07:06)
[2018-09-25] MEDS: Lidocaine/D5W 2,000 MG/250 ML IV.SOLN 2000 MG (07:13)
--- NOTE | 2018-09-25 07:15 | COL._PTH ---
PATIENT: AYAD BA LOC: MS3 U#:[id number] AGE/SX: 83/F ROOM: MS324 RE09/25/[address]: Dr. Miguel Godinez MD : 1935 BED: 1 DIS: 09/27/2018 SPEC #: [id number] RECD: 09/25/18 10:17 STATUS: FELIX REQ #: [id number] JAH: 09/25/18 07:[address]: Miguel Godinez DEPT: SURGICAL PATHOLOGY RECD BY: Damian Tellez ENTERED: 09/25/18 11:20 SP TYPE: COLON OTHR DR: Dr. Meli Gómez, DO Tissues: Right colon Procedures: Surgery Specimen Level IV Surgery Specimen Level V HEADER OPERATION: ERAS, laparoscopic hemicolectomy PRE-OP DIAGNOSIS: Tubulovillous adenoma of colon TISSUE SUBMITTED: Right colon MICROSCOPIC DIAGNOSIS Right colon: Tubulovillous adenoma with focal area of high grade dysplasia (4 cm in greatest dimension). Tubular adenomas, cecum and ascending colon x 9. Pigment laden macrophages, consistent with melanosis coli. Appendix, no pathologic diagnosis. Intestinal donut with focal mucosal congestion and hemorrhage. Thirteen pericolonic lymph nodes with reactive changes. SJ:bolivar 09/27/18 COMMENT Please make reference to previous specimen ([id number]) cecum and ascending colon, random biopsy with diagnosis of fragments of colonic mucosa with pigment laden macrophages consistent with melanosis coli and transverse colon mass, biopsy with diagnosis of fragments of tubulovillous adenoma and pigment laden macrophages consistent with melanosis coli. Case has been reviewed in consultation with Dr. Omalley who concurs with the above diagnosis. IDC:AM MICROSCOPIC DESCRIPTION Slides are reviewed. GROSS DESCRIPTION Received in fixative is one container labeled with the patient's name and designated right colon. The specimen consists of a right hemicolectomy specimen consisting of 28 cm of large bowel with attached 2 cm on terminal ileum and attached 5 cm segment of appendix which has an average diameter of 1 cm. Located 2.5 cm from the distal margin of resection is a light lan polypoid lesion measuring 4 x 2.5 x 1 cm. Located in the cecum are three similar polyps ranging in size from 0.8 to 0.5 cm. Similar polyps are present distal to the ileocecal valve (approximately five) and ranging in size from 0.2 to 1 cm in greatest dimension. Also present free in the container is a mucosal donut measuring 4 cm in diameter and 1 cm in thickness. The mucosa with mucosal donut is light lan in color and free of mass lesions. Serial sections of the appendix reveal fecal material in the lumen. The serosal surface in the area of the lesion is inked black. The remainder of the small and large bowel mucosa is grossly unremarkable. The attached fibrofatty tissue contains a number of grossly unremarkable nodules resembling lymph nodes. Pump Servicer Helper sections are submitted as follows: 1 - mucosal margins, 2 - mucosal donut free in container, 3 - appendix, 4 - polyps from cecum, 5 - polyps distal to cecum, 6-9 - mass, totally submitted, 10-12 - multiple lymph nodes in each cassette. / AM:bolivar 09/26/18 TC:1 CPT: 29509, 96513
--- NOTE | 2018-09-25 07:37 | PCM.OPRPT ---
Problem List (1) Tubulovillous adenoma of colon Status: Acute Report of Operation Date of Procedure: 09/25/18 Pre-Operative Diagnosis: Tubulovillous adenoma of transverse colon Post-Operative Diagnosis: Same Surgery/Procedure Performed:: Laparoscopic right hemicolectomy Type of Anesthesia:: General Anesthesiologist: Olivier Ramos Specimen's removed: Right colon Estimated Blood Loss (mL): 50 cc Fluids Replaced: 900 cc LR Description of Procedure: Patient was brought into the operating room. Placed in the supine position. Under excellent general trach intubation a Shrestha catheter was placed the abdomen was sterilely prepped and draped in usual fashion. Local was injected in for umbilical he dissection was carried down to the fascia the fascia was grasped with [place] varies needle was placed inside the abdomen the abdomen was insufflated to 15 torr. #5 trocar was placed without difficulty. Subxiphoid #5 trocar was placed under direct visualization on the right lower quadrant #5 trochars placed under direct visualization. I was able to identify the blue ink in the hepatic flexure. Underscore the right colon with an Enseal identifying the duodenum and then mobilizing all the way down to the small intestine of the terminal ileum. Once I had this completely mobilized I made a midline incision and placed a wound protector into the wound. Brought the right colon out I transected the terminal ileum with a 75 linear cutter. I placed a stitch at the suture line. I marked this with hemostat so that I would continue to have good access to it. I then went to the transverse colon just distal to the blue ink I transected the colon with another 75 linear cutter. He came down on the mesentery with the Enseal and then tied off the right colic vessels with 0 Vicryl suture ligatures. I opened the specimen identified the tubular villous adenoma as well as the clip that I placed. I created a eomt-sr-boez functional end-to-end anastomosis with the ileum and the transverse colon. I created 2 enterotomies and stapled the 2 side to side with a 75 linear cutter and then closed the large enterotomy with a 60 stapler. There was some small vessels that were bleeding and I tied these off with zpebog-iw-naivx stitch of 3-0 GI silk. I placed a crotch stitch of 3-0 GI silk to take tension off of the anastomosis. I placed the specimen in the right upper quadrant. I then closed the abdomen after obtaining a needle and sponge count which was correct. Peritoneum was closed with 0 Vicryl and then running suture of #1 PDS on the fascia. I injected Exparel in the wound. I reinflated the abdomen inspected the anastomosis there was a small area of mucosa that was bleeding which I was able to control with 3 clips of 5 oh hemo-locks. I placed some Hu in the wound as well I had good hemostasis. I injected the rest of the Exparel under direct visualization creating a wound block along the oblique muscles. Once this was completed I deflated the abdomen and remove the trochars good hemostasis was noted. Subcu was brought together with deep dermal stitches of 3-0 Vicryl and running 4-0 Monocryl. #5 trocar sites were brought together with interrupted 4-0 Monocryl. Steri-Strips were applied sterile dressings were applied and the patient tolerated the procedure well. - Admit VTE Documentation VTE Present on Admission: No VTE Mechan Device Prophylaxis: SCD's VTE Pharm Prophylaxis ordered?: No Reason prophylaxis not ordered:: Treatment Not Indicated
[2018-09-25] MEDS: Lidocaine/D5W 2,000 MG/250 ML IV.SOLN 22.32 MG IV (07:42)
[2018-09-25] MEDS: BUPIVACAINE LIPOSOME/PF 20 ML VIAL OPERA.SITE (08:58)
[2018-09-25] MEDS: Docusate Sodium 100 MG Capsule PO (22:42)
[2018-09-25] MEDS: Levothyroxine 112 MCG Tablet PO (22:43)
[2018-09-25] MEDS: Ensure Clear 120 ML Liquid PO (22:47)
[2018-09-26] MEDS: Acetaminophen 500 MG Tablet 1000 MG PO ×4 (05:34→17:17)
[2018-09-26 05:41] VITALS: BP 130/66; PULSE 77; RESP 20; TEMP 36.7; O2SAT 92
[2018-09-26 06:00] LABS: Anion Gap 7 (5-15); BUN 6 mg/dL (7-18); BUN/Creat Ratio 9.6 RATIO (10-20); Chloride 106 mmol/L (98-107); Creatinine, Serum 0.62 mg/dL (0.55-1.02); EST Glomerular Filtration Rate 97 mL/min (>60); Est Glom Filt Rate - Afr Amer 118 mL/min (>60); Estimated Creatinine Clearance 33.12 ml/min; Glucose 108 mg/dL (74-106); Potassium 3.6 mmol/L (3.5-5.1); Sodium Level 140 mmol/L (136-145)
[2018-09-26 06:01] LABS: Hematocrit 39.8 % (37-47); Hemoglobin 12.9 g/dl (12.0-15.0); Mean Corp Hgb Conc 32.4 g/gl (32-36); Mean Corpuscular Hgb 30.5 pg (27.0-32.0); Mean Corpuscular Volume 94.1 fL (81-99); Mean Platelet Vol. 11.6 fl (6.2-12.0); Platelet Count 169 K/mm3 (150-450); RBC Distribution Width CV 14.8 % (11.6-14.6); RBC Distribution Width SD 49.5 fl (35.1-43.9); Red Blood Count 4.23 M/mm3 (4.2-5.4); White Blood Count 12.3 K/mm3 (4.4-11.0)
[2018-09-26 06:05] LABS: Scan Indicated on CBC? Y/N NO
--- NOTE | 2018-09-26 06:54 | PN.SURG_ITS ---
Patient Problems: Active and Suspected Problems (Last Reviewed 09/02/18 @ 11:19 by Miguel Godinez MD) Tubulovillous adenoma of colon (Acute) Subjective: Patient evaluated resting comfortably in bed. Patient notes abdominal discomfort with movement and coughing. Patient has not been up out of bed except to use the bathroom. She did note a small bowel movement yesterday. She noted feeling dizziness upon standing for the first time. Negative flatus. She is on 4 L of oxygen - Physical Exam General: Alert, Oriented x3, Cooperative Lungs: Wheezes - bilaterally Abdomen: Soft, Hypoactive Bowel Sounds, Distended, Tender - generalized, - - Inc isions c/d/i. No erythema noted. Vital Signs Temp Pulse Resp BP Pulse Ox 98.0 F 77 20 H 130/66 H 92 09/26/18 05:41 09/26/18 05:41 09/26/18 05:41 09/26/18 05:41 09/26/18 05:41 Oxygen Flow Rate (L/min) 4 Oxygen Delivery Method Nasal Cannula Weight: 164 lb 0.383 oz Body Mass Index (BMI) 29.9 Intake and Output for Last 24 Hours 09/24/18 09/25/18 09/26/18 23:59 23:59 23:59 Intake Total 1772 / 1772 1255 / 1255 Output Total 375 / 375 450 / 450 Balance 1397 / 1397 805 / 805 Laboratory Tests Past 24 Hrs 09/26/18 09/26/18 05:32 05:32 WBC 12.3 H RBC 4.23 Hgb 12.9 Hct 39.8 MCV 94.1 MCH 30.5 MCHC 32.4 RDW 14.8 H RDW Differential 49.5 H Plt Count 169 MPV 11.6 Sodium 140 Potassium 3.6 Chloride 106 Carbon Dioxide 27.0 Anion Gap 7 BUN 6 L Creatinine 0.62 Estim Creat Clear Calc 33.12 Est GFR (MDRD) Af Amer 118 Est GFR (MDRD) Non-Af 97 BUN/Creatinine Ratio 9.6 L Glucose 108 H Calcium 8.0 L POC Glucose 09/25/18 06:27 POC Glucose 117 H Medical Necessity - Tobacco Use Smoking Status: Former smoker Assessment/Plan All Active Problems (Last Reviewed 09/02/18 @ 11:19 by Miguel Godinez MD) Tubulovillous adenoma of colon (Acute) Acute respiratory failure with hypoxemia (Resolved) Constipation (Resolved) Cough (Resolved) Pneumonia (Resolved) Seasonal allergies (Resolved) Status post total right knee replacement (Resolved) lung cancer 2012 rll lobectemy (Resolved) I am following this patient in conjunction with Dr. Godinez S/p laparoscopic right hemicolectomy D/C Shrestha Remove scopolamine patch Patient will need to be sitting in a chair and ambulating today Encourage I.S. Wean off of oxygen Hopeful discharge tomorrow We will continue to monitor this patient Code Visit Inpatient E&M: 98424 Subs Hosp L1 - no charge
[2018-09-26 07:25] VITALS: O2SAT 92
[2018-09-26 09:30] VITALS: BP 127/67; PULSE 78; RESP 18; TEMP 36.6; O2SAT 93
[2018-09-26] MEDS: Docusate Sodium 100 MG Capsule PO ×2 (10:10→21:20)
[2018-09-26] MEDS: Celecoxib 200 MG Capsule PO (10:10)
[2018-09-26] MEDS: Losartan Potassium 25 MG Tablet PO (10:10)
[2018-09-26] MEDS: hydroCHLOROthiazide 25 MG Tablet PO (10:10)
[2018-09-26] MEDS: dilTIAZem CD 180 MG Capsule 360 MG PO (10:12)
[2018-09-26] MEDS: oxyCODONE 5 MG Tablet PO ×2 (10:22→17:18)
[2018-09-26] MEDS: Lactated Ringers 1,000 ML 40 ML IV (10:23)
--- NOTE | 2018-09-26 11:35 | CASEMGMT ---
DELMAR MARIE Face to Face with patient for initial transition planning/care coordination assessment. RN CM introduced self and role at [facility]. Patient lying in bed, alert and oriented. Patient willing to participate in assessment and is able to answer all questions appropriately. Care providers, pharmacy, and demographics verified. Patient wishes to discharge home, denies need for home health at this time. Patient states she has no further needs or concerns at this time. CM to follow for discharge planning needs that may arise. PCP: Rico Specialists: Sloan, certified rehabilitation counselor; Adrian wallpaper remover steam; Anthony garnett; hebert Rae Preferred Pharmacy: [facility] Insurance: [employer] Prescription Benefit: yes Living Will/HPOA: sonLuther LNOK: sons Living Arrangements: Patient lives alone in 1 story home with 2 steps to enter the home. Transportation: son DME/HHC: Patient has shower chair, raised toilet, cane, walker, WC, grab bars. Patient has [facility] HHC in the past. Will monitor for need for home oxygen. Patient denying need for home oxygen. Disposition Plan: Patient to discharge home with family support and follow-up plans in place. Jodee CELESTE, RN, CM
--- NOTE | 2018-09-26 12:03 | NURSING ---
loyola removed at 0900--pt tolerated well.
--- NOTE | 2018-09-26 13:29 | NURSING ---
c.spo2 noted dropping while ambulating in hallway w/ 2lnc and 2 assist. spo2 check while ambulating 82-85%, 02 increased to 3lnc, 92% after a couple minutes rest. primary rn informed
[2018-09-26 15:00] VITALS: BP 116/52; PULSE 70; RESP 18; TEMP 36.8; O2SAT 96
--- NOTE | 2018-09-26 15:09 | NURSING ---
Addendum entered by Loulou Osorio 09/26/18 15:09: scop patch removal time= 1045, 09/26/18 Original Note: scop patch removed from behind pt's left ear per order by Cammie ROBB
[2018-09-26] MEDS: Ensure Clear 120 ML Liquid PO (15:39)
[2018-09-26] MEDS: FLUTICASONE/VILANTEROL 1 EACH BLST.W.DEV IH (15:41)
[2018-09-26 21:03] VITALS: BP 130/51; PULSE 72; RESP 18; TEMP 36.9; O2SAT 95
[2018-09-26] MEDS: dilTIAZem CD 180 MG Capsule PO (21:20)
[2018-09-26] MEDS: Levothyroxine 112 MCG Tablet PO (21:20)
[2018-09-27] VITALS (12 sets, daily range): BP systolic 101–135; BP diastolic 46–65; PULSE 62–75; RESP 16–20; TEMP 36.7–36.9; O2SAT 74–96
[2018-09-27] MEDS: oxyCODONE 5 MG Tablet PO (00:09)
[2018-09-27] MEDS: Acetaminophen 500 MG Tablet 1000 MG PO ×2 (05:30→12:15)
--- NOTE | 2018-09-27 08:41 | PN.SURG_ITS ---
Patient Problems: Active and Suspected Problems (Last Reviewed 09/02/18 @ 11:19 by Miguel Godinez MD) Tubulovillous adenoma of colon (Acute) Subjective: Patient evaluated resting comfortably in chair. She denies abdominal discomfort, nausea, vomiting. She is tolerating clear liquid diet well. Negative flatus, BM. She is urinating well. - Physical Exam General: Alert, Oriented x3, Cooperative Abdomen: Soft, Non Tender, Non-Distended, Hypoactive Bowel Sounds, - - Incisions c/d/i. No erythema or infection noted Vital Signs Temp Pulse Resp BP Pulse Ox 98.5 F 62 20 H 102/53 L 96 09/27/18 05:18 09/27/18 05:18 09/27/18 05:18 09/27/18 05:18 09/27/18 05:18 Oxygen Flow Rate (L/min) 2 Oxygen Delivery Method Nasal Cannula Weight: 164 lb 0.383 oz Body Mass Index (BMI) 29.9 Intake and Output for Last 24 Hours 09/25/18 09/26/18 09/27/18 23:59 23:59 23:59 Intake Total 1772 / 1772 2013 1082 / 1082 Output Total 375 / 375 800 / 800 2150 / 2150 Balance 1397 / 1397 1214 / 1214 -1068 / -1068 Medical Necessity - Tobacco Use Smoking Status: Former smoker Assessment/Plan All Active Problems (Last Reviewed 09/02/18 @ 11:19 by Miguel Godinez MD) Tubulovillous adenoma of colon (Acute) Acute respiratory failure with hypoxemia (Resolved) Constipation (Resolved) Cough (Resolved) Pneumonia (Resolved) Seasonal allergies (Resolved) Status post total right knee replacement (Resolved) lung cancer 2012 rll lobectemy (Resolved) I am following this patient in conjunction with Dr. Godinez S/p laparoscopic right hemicolectomy Start transitional diet Continue ambulation Encourage I.S. Wean off of oxygen Hopeful discharge tomorrow Labs pending We will continue to monitor this patient Code Visit In[facility] E&M: 10447 [facility] - No charge
[2018-09-27 08:58] LABS: Absolute Lymphocyte Count 0.97 X10^3/ul (0.83-4.51); Absolute Neutrophil Count 8.4 X10^3/uL (2.0-7.7); Basophil# 0.01 X10^3/uL; Basophil% 0.1 % (0-1); Eosinophil# 0.26 X10^3/uL; Eosinophils% 2.5 % (0-5); Hematocrit 36.9 % (37-47); Hemoglobin 12.3 g/dl (12.0-15.0); Lymphocyte # 0.97 X10^3/ul (4.0); Lymphocyte % 9.4 % (19-41); Mean Corp Hgb Conc 33.3 g/gl (32-36); Mean Corpuscular Hgb 30.8 pg (27.0-32.0); Mean Corpuscular Volume 92.5 fL (81-99); Mean Platelet Vol. 11.1 fl (6.2-12.0); Monocyte# 0.75 X10^3/uL; Monocyte% 7.2 % (0-10); Neutrophil # 8.35 X10^3/uL (2.7-7.7); Neutrophil % 80.7 % (47-70); Platelet Count 168 K/mm3 (150-450); RBC Distribution Width CV 14.2 % (11.6-14.6); RBC Distribution Width SD 47.9 fl (35.1-43.9); Red Blood Count 3.99 M/mm3 (4.2-5.4); White Blood Count 10.4 K/mm3 (4.4-11.0)
[2018-09-27 08:59] LABS: POSITIVE COUNT NO; POSITIVE DIFFERENTIAL NO; POSITIVE MORPHOLOGY NO
[2018-09-27 09:22] LABS: Anion Gap 10 (5-15); BUN 6 mg/dL (7-18); Calcium,Total 8.6 mg/dL (8.5-10.1); Chloride 101 mmol/L (98-107); EST Glomerular Filtration Rate 101 mL/min (>60); Est Glom Filt Rate - Afr Amer 122 mL/min (>60); Estimated Creatinine Clearance 33.12 ml/min; Glucose 109 mg/dL (74-106); Potassium 3.2 mmol/L (3.5-5.1); Sodium Level 137 mmol/L (136-145)
[2018-09-27] MEDS: FLUTICASONE/VILANTEROL 1 EACH BLST.W.DEV IH (09:58)
[2018-09-27] MEDS: Docusate Sodium 100 MG Capsule PO (09:59)
[2018-09-27] MEDS: Celecoxib 200 MG Capsule PO (09:59)
[2018-09-27] MEDS: dilTIAZem CD 180 MG Capsule PO (12:14)
[2018-09-27] MEDS: Losartan Potassium 25 MG Tablet PO (12:14)
--- NOTE | 2018-09-27 12:30 | CASEMGMT ---
DELMAR MARIE received update that patient will need home oxygen at discharge. DELMAR MARIE in to discuss home oxygen with patient. Patient states that she has had home oxygen previously with [facility] and patient is agreeable to [facility] again. DELMAR MARIE received script for home oxygen and referral sent to [facility]. CM will continue to follow this patient and plan a safe discharge.
--- NOTE | 2018-09-27 12:41 | NURSING ---
Addendum entered by Loulou Osorio 09/27/18 12:47: On room air pt spo2 has been varying from 87-90%. When up walking spo2 low 70-80's Original Note: patient adamant that she have oxygen removed at start of this shift because the plan is to return home today or tomorrow and she WILL NOT be taking oxygen with her. She notified this RN that she took oxygen home in the past and didn't use it. She states that will be the same thing that happens if we send her home on it. Continuous spo2 remains on pt's finger. Spo2 documented t/o this morning- pt notified that oxygen is needed- pt states that she does not feel short of breath or that she has any reason to wear it. Pt continues to refuse oxygen. patient's son in to see pt when pt up to bathroom at 1140 when oxygen dropped to 74%- verified by another spo2 machine. son notified pt that he would not be taking pt home with no oxygen with spo2 that low. this RN spoke with pt and reinforced importance of oxygen and what lack of oxygen could cause, ie fractures from falls. Pt also notified that physician would not d/c pt without proper resources due to safety issues. patient verbalized understanding and states that we can get the ball rolling for home oxygen. this RN notified [facility] [place] and documentation needed was entered into computer.
--- NOTE | 2018-09-27 14:46 | PCM.DC.GS ---
Discharge Diet: - - Transitional diet until we see you in follow-up Discharge Activity: May not drive while taking narcotic pain medications. May shower in (days): 1 Lifting Restrictions: 10 pounds Call your doctor if your incision/area has: Continuous Slow Oozing, Sudden Increased Bleeding, Increased Pain/ Swelling, Increased Redness, Foul Smelling Discharge, Swelling at the incision site Suture Line Care: Avoid Pulling/Pushing, Avoid Pinching/Bending Change Dressing in (Days):: 4 - Leave steri-strips in place for 1 week. Cleanse incision/area with: Soap & Water Additional Instructions: You will be sent home on oxygen. You will need to schedule an appointment with your family doctor within the next week to re-evaluate you for the oxygen usage. Allergies/Adverse Reactions: Allergies albuterol sulfate [From DuoNeb] Allergy (Verified 09/21/18 12:57) Other ipratropium bromide [From DuoNeb] Allergy (Verified 09/21/18 12:57) Other morphine Allergy (Verified 09/21/18 12:57) UNCONTROLLED BEHAVIOR DANISH Inhibitors Adverse Reaction (Intermediate, Verified 09/21/18 12:57) cough Medications to take at Discharge Diltiazem HCl [Cardizem Cd] 180 mg PO BID 07/11/14 Multivit-Min/FA/Lycopene/Lut [Centrum Silver Tablet] 1 ea PO DAILY 07/11/14 aspirin 81 mg tablet,delayed release 81 mg PO DAILY 06/26/18 celecoxib 200 mg capsule 200 mg PO DAILY 06/26/18 fluticasone furoate 200 mcg-vilanterol 25 mcg/dose inhalation powder 1 inh INHALATION DAILY 06/26/18 hydrochlorothiazide 25 mg tablet 25 mg PO DAILY 06/26/18 omeprazole 20 mg capsule,delayed release 20 mg PO DAILY 06/26/18 rosuvastatin 5 mg tablet 5 mg PO QHS 06/26/18 umeclidinium 62.5 mcg/actuation blister powder for inhalation 1 inh INHALATION DAILY 06/26/18 vit C 250 mg-E 200 unit-zinc 40 mg-copper 1 xp-pdmrfn-mclnni capsule 1 tab PO BID 06/26/18 levothyroxine 112 mcg tablet 112 mcg PO QHS 06/27/18 Calcium Carbonate [Calcium] 600 mg PO DAILY 08/07/18 Valsartan 10 mg PO QHS 08/07/18 Valsartan 20 mg PO BREAKFAST 08/07/18 Albuterol IH (ProAir) [Proair Hfa] 2 puff INHALATION 4X/DAY 09/21/18 Potassium Chloride [K-Dur] 40 meq PO BIDCM 09/21/18 metronidazole 500 mg tablet 500 mg PO DIRECTED #6 tab 09/21/18 neomycin 500 mg tablet 500 mg PO DIRECTED #6 tab 09/21/18 traZODone [Desyrel] 100 mg PO QHS 09/21/18 Oxycodone [Oxyir] 5 mg PO Q4H PRN PRN 3 Days #10 tablet 09/27/18 The following prescriptions were given: Oxycodone [Oxyir] 5 mg PO Q4H PRN PRN 3 Days #10 tablet PRN Reason: Mod-Severe Pain (-01/24) Primary Care Physician: Meli Gómez DO [Primary Care Provider] - Please follow up with your Primary Care Physician in: within 1 week Test Results: Test results from this visit will be discussed in further detail at your follow-up appointment, if applicable. Please Follow Up With: Miguel Godinez MD - [phone] When: 10 days Proposed Discharge Date: 09/27/18
--- NOTE | 2018-09-27 14:50 | DCINST_ITS ---
Discharge Diet: - - Transitional diet until we see you in follow-up Discharge Activity: May not drive while taking narcotic pain medications. May shower in (days): 1 Lifting Restrictions: 10 pounds Call your doctor if your incision/area has: Continuous Slow Oozing, Sudden Increased Bleeding, Increased Pain/ Swelling, Increased Redness, Foul Smelling Discharge, Swelling at the incision site Suture Line Care: Avoid Pulling/Pushing, Avoid Pinching/Bending Change Dressing in (Days):: 4 - Leave steri-strips in place for 1 week. Cleanse incision/area with: Soap & Water Additional Instructions: You will be sent home on oxygen. You will need to schedule an appointment with your family doctor within the next week to re-evaluate you for the oxygen usage. Allergies/Adverse Reactions: Allergies albuterol sulfate [From DuoNeb] Allergy (Verified 09/21/18 12:57) Other ipratropium bromide [From DuoNeb] Allergy (Verified 09/21/18 12:57) Other morphine Allergy (Verified 09/21/18 12:57) UNCONTROLLED BEHAVIOR DANISH Inhibitors Adverse Reaction (Intermediate, Verified 09/21/18 12:57) cough Medications to take at Discharge Diltiazem HCl [Cardizem Cd] 180 mg PO BID 07/11/14 Multivit-Min/FA/Lycopene/Lut [Centrum Silver Tablet] 1 ea PO DAILY 07/11/14 aspirin 81 mg tablet,delayed release 81 mg PO DAILY 06/26/18 celecoxib 200 mg capsule 200 mg PO DAILY 06/26/18 fluticasone furoate 200 mcg-vilanterol 25 mcg/dose inhalation powder 1 inh INHALATION DAILY 06/26/18 hydrochlorothiazide 25 mg tablet 25 mg PO DAILY 06/26/18 omeprazole 20 mg capsule,delayed release 20 mg PO DAILY 06/26/18 rosuvastatin 5 mg tablet 5 mg PO QHS 06/26/18 umeclidinium 62.5 mcg/actuation blister powder for inhalation 1 inh INHALATION DAILY 06/26/18 vit C 250 mg-E 200 unit-zinc 40 mg-copper 1 ac-rjngng-[id number] capsule 1 tab PO BID 06/26/18 levothyroxine 112 mcg tablet 112 mcg PO QHS 06/27/18 Calcium Carbonate [Calcium] 600 mg PO DAILY 08/07/18 Valsartan 10 mg PO QHS 08/07/18 Valsartan 20 mg PO BREAKFAST 08/07/18 Albuterol IH (ProAir) [Proair Hfa] 2 puff INHALATION 4X/DAY 09/21/18 Potassium Chloride [K-Dur] 40 meq PO BIDCM 09/21/18 metronidazole 500 mg tablet 500 mg PO DIRECTED #6 tab 09/21/18 neomycin 500 mg tablet 500 mg PO DIRECTED #6 tab 09/21/18 traZODone [Desyrel] 100 mg PO QHS 09/21/18 Oxycodone [Oxyir] 5 mg PO Q4H PRN PRN 3 Days #10 tablet 09/27/18 The following prescriptions were given: Oxycodone [Oxyir] 5 mg PO Q4H PRN PRN 3 Days #10 tablet PRN Reason: Mod-Severe Pain (-01/24) Primary Care Physician: Meli Gómez DO [Primary Care Provider] - Please follow up with your Primary Care Physician in: within 1 week Test Results: Test results from this visit will be discussed in further detail at your follow- up appointment, if applicable. Please Follow Up With: Miguel Godinez MD - [phone] When: 10 days Proposed Discharge Date: 09/27/18
--- NOTE | 2018-09-27 14:51 | PCM.DC.SUM ---
Discharge Date and Diagnosis - Problem List Patient Problems: Active and Suspected Problems (Last Reviewed 09/02/18 @ 11:19 by Miguel Godinez MD) Tubulovillous adenoma of colon (Acute) Date of Admission: 09/25/18 Date of Discharge: 09/27/18 - Primary Discharge Diagnosis Active and Suspected Problems (Last Reviewed 09/02/18 @ 11:19 by Miguel Godinez MD) Tubulovillous adenoma of colon (Acute) - Secondary Discharge Diagnosis Chronic Problems (Last Reviewed 09/02/18 @ 11:19 by Miguel Godinez MD) Non-rheumatic aortic stenosis (Chronic) Secondary pulmonary arterial hypertension (Chronic) Essential hypertension (Chronic) Hyperlipidemia (Chronic) Hospital Course and Treatment Operations: None, colectomy - right hemicolectomy Summary of Care Provided: The patient is a 83 year old F non-resectable tubulovillous adenomatous polyp. Dr. Godinez performed a laparoscopic right hemicolectomy. Patient tolerated the procedure well. Patient was noted to have a continued decrease in her oxygen level. She was tested for home oxygen and qualified for oxygen with portability. Patient is ambulatory in the home and in the community. Upon discharge, patient is tolerating her diet well without nausea, vomiting. She had a bowel movement. She is urinating well. She will need to follow-up with her PCP within 1 week for re-evaluation of her oxygen level. Patient Problems: Active and Suspected Problems (Last Reviewed 09/02/18 @ 11:19 by Miguel Godinez MD) Tubulovillous adenoma of colon (Acute) - Physical Exam General: Alert, Oriented x3, Cooperative Abdomen: Bowel Sounds Present, Soft, Non Tender, - - Incisions c/d/i. No erythema or infection noted. Vital Signs Temp Pulse Resp BP Pulse Ox 98.1 F 70 18 117/46 L 93 09/27/18 14:20 09/27/18 14:20 09/27/18 14:20 09/27/18 14:20 09/27/18 14:20 Oxygen Flow Rate (L/min) [ 3 AMBULATION with Oxygen] Oxygen Flow Rate (L/min) [ 0 AMBULATING on Room Air] Oxygen Flow Rate (L/min) [At 0 REST on Room Air] Oxygen Flow Rate (L/min) 2 Oxygen Delivery Method Room Air Weight: 164 lb 0.383 oz Body Mass Index (BMI) 29.9 Intake and Output for Last 24 Hours 09/25/18 09/26/18 09/27/18 23:59 23:59 23:59 Intake Total 1772 / 1772 2013 1782 / 1782 Output Total 375 / 375 800 / 800 2250 / 2250 Balance 1397 / 1397 1214 / 1214 -468 / -468 Laboratory Tests Past 24 Hrs 09/27/18 09/27/18 08:46 08:46 WBC 10.4 RBC 3.99 L Hgb 12.3 Hct 36.9 L MCV 92.5 MCH 30.8 MCHC 33.3 RDW 14.2 RDW Differential 47.9 H Plt Count 168 MPV 11.1 Immature Gran % (Auto) 0.100 Neut % (Auto) 80.7 H Lymph % (Auto) 9.4 L [place] % (Auto) 7.2 Eos % (Auto) 2.5 Baso % (Auto) 0.1 Absolute Neuts (auto) 8.4 H Absolute Lymphs (auto) 0.97 Total Counted Not Reportable Sodium 137 Potassium 3.2 L Chloride 101 Carbon Dioxide 26.0 Anion Gap 10 BUN 6 L Creatinine 0.60 Estim Creat Clear Calc 33.12 Est GFR (MDRD) Af Amer 122 Est GFR (MDRD) Non-Af 101 BUN/Creatinine Ratio 10.0 Glucose 109 H Calcium 8.6 Discharge Diet: - - Transitional diet until we see you in follow-up Discharge Activity: May not drive while taking narcotic pain medications. May shower in (days): 1 Call your doctor if your incision/area has: Continuous Slow Oozing, Sudden Increased Bleeding, Increased Pain/ Swelling, Increased Redness, Foul Smelling Discharge, Swelling at the incision site Suture Line Care: Avoid Pulling/Pushing, Avoid Pinching/Bending Change Dressing in (Days):: 4 - Leave steri-strips in place for 1 week. Cleanse incision/area with: Soap & Water Home Medications: Medications to take at Discharge Diltiazem HCl [Cardizem Cd] 180 mg PO BID 07/11/14 Multivit-Min/FA/Lycopene/Lut [Centrum Silver Tablet] 1 ea PO DAILY 07/11/14 aspirin 81 mg tablet,delayed release 81 mg PO DAILY 06/26/18 celecoxib 200 mg capsule 200 mg PO DAILY 06/26/18 fluticasone furoate 200 mcg-vilanterol 25 mcg/dose inhalation powder 1 inh INHALATION DAILY 06/26/18 hydrochlorothiazide 25 mg tablet 25 mg PO DAILY 06/26/18 omeprazole 20 mg capsule,delayed release 20 mg PO DAILY 06/26/18 rosuvastatin 5 mg tablet 5 mg PO QHS 06/26/18 umeclidinium 62.5 mcg/actuation blister powder for inhalation 1 inh INHALATION DAILY 06/26/18 vit C 250 mg-E 200 unit-zinc 40 mg-copper 1 [id number]-kvtgfc capsule 1 tab PO BID 06/26/18 levothyroxine 112 mcg tablet 112 mcg PO QHS 06/27/18 Calcium Carbonate [Calcium] 600 mg PO DAILY 08/07/18 Valsartan 10 mg PO QHS 08/07/18 Valsartan 20 mg PO BREAKFAST 08/07/18 Albuterol IH (ProAir) [Proair Hfa] 2 puff INHALATION 4X/DAY 09/21/18 Potassium Chloride [K-Dur] 40 meq PO BIDCM 09/21/18 metronidazole 500 mg tablet 500 mg PO DIRECTED #6 tab 09/21/18 neomycin 500 mg tablet 500 mg PO DIRECTED #6 tab 09/21/18 traZODone [Desyrel] 100 mg PO QHS 09/21/18 Oxycodone [Oxyir] 5 mg PO Q4H PRN PRN 3 Days #10 tablet 09/27/18 Following Prescrptions Were Given to Patient: Oxycodone [Oxyir] 5 mg PO Q4H PRN PRN 3 Days #10 tablet PRN Reason: Mod-Severe Pain (-01/24) Primary Care Physician: Meli Gómez DO [Primary Care Provider] - Please follow up with your Primary Care Physician in: within 1 week Please Follow Up With: Miguel Godinez MD - [phone] When: 10 days Additional Instructions: You will be sent home on oxygen. You will need to schedule an appointment with your family doctor within the next week to re-evaluate you for the oxygen usage. Disposition: Home Minutes spent on discharge:: 20 Patient Condition:: Stable Medical Necessity - Tobacco Use Smoking Status: Former smoker Meaningful Use Info Meaningful Use Diagnoses (Choose all that apply): None applicable Code Visit Inpatient E&M: 52091 Disch Hosp - No charge
--- NOTE | 2018-09-29 15:00 | CM.UR ---
CM Discharge phone call: Discharge date: 09/27 States she feels amazing. States very little pain. States only taking tylenol about 1x per day for the pain. States really only hurts when she coughs. Denies any questions regarding medications. Had question about diet. Asked if she can add onion to her tuna/egg salad. recommended she did not for at least the first 6 weeks as it can produce gas. Recommended she discuss further with Dr. Godinez to make sure. Agrees she doesn't want extra gas. States she stopped using her o2 today. She has a pulse ox. States when she woke up she was 88% on room air. States after she got up and got ready for morning it was 91% on room air. States currently up to 94% on room air. Feels that this is probably normal for her. She did make her f/u appts. Dr. Godinez thurs 10/04 Dr. Gómez Fri 10/05 States son will drive her to appointments. He helps her with most everything and is a teacher so off for the summer. States this hospitalization was very good. Denies any suggestions to improve [facility]. Nehemias Keane RN, CCM.
== END 2018-09-27 15:44 | disposition home or self-care (01) | DRG 331 ==
LOC: ACINP 05:43 → MS3 05:52
PROVIDERS: Anesthesiology; Physician Assistant; Admitting Provider Surgery; Family Provider Internal Medicine; PCP Internal Medicine; Referring Provider Surgery; Visit Provider Surgery
PROC: 0DTF4ZZ Resection of Right Large Intestine, Percutaneous Endoscopic Approach (ICD-10-PCS; CPT 44205; principal; 2018-09-25 06:55)
DX: D12.3 Benign neoplasm of transverse colon (principal); E78.5 Hyperlipidemia, unspecified; I27.21 Secondary pulmonary arterial hypertension; I10 Essential (primary) hypertension; I35.0 Nonrheumatic aortic (valve) stenosis; Z87.891 Personal history of nicotine dependence
CPT/HCPCS: 36415; 80048; 82962; 84443; 85025; 85027; 88305; 88307; 88309; 93005; 94762; 97162; 97166; J7050; J7120; C1760; J2405

== ENCOUNTER → 2018-11-21 | Outpatient (CLI) | payer MEDICARE, OTHER, SELFPAY ==
[2018-09-25 14:16] VITALS: BMI 29.9
--- NOTE | 2018-11-21 16:03 | VDLE_ITS ---
Reason For Study: SWELLING Procedure LEFT Exam performed in department. GSV is normal. A preliminary report was called and/or faxed CFV is compressible, spontaneous, phasic, to DR DERAS. competent, and demonstrates normal augmentation. FV is compressible, spontaneous, phasic, competent and demonstrates normal augmentation. POP V is compressible, spontaneous, phasic, competent and demonstrates normal augmentation. T/P Trunk is compressible. PTV is compressible. LT PerV is compressible. Interpretation Summary Deep veins of the left lower extremity are patent and compressible segmentally. There is no evidence of left lower extremity deep vein thrombosis. Valvular competence appears intact within the proximal deep venous system on the left . The left greater saphenous vein appears patent and compressible segmentally. Ordering Physician: Meli Deras Referring Physician: Meli Deras Performed By: Judi Portillo, FLORECITA, RVT
== END | disposition home or self-care (01) ==
LOC: CVS 16:00
PROVIDERS: Family Provider Internal Medicine; PCP Internal Medicine; Referring Provider Internal Medicine; Visit Provider Internal Medicine
DX: M79.89 Other specified soft tissue disorders (principal)
CPT/HCPCS: 93971

== ENCOUNTER → 2018-11-28 | Outpatient (CLI) | payer MEDICARE, OTHER, SELFPAY ==
[2018-09-25 14:16] VITALS: BMI 29.9
--- NOTE | 2018-11-28 12:55 | CDU_ITS ---
Reason For Study: Bilateral carotid stenosis Rt. Velocities/BP Lt. Velocities/BP Prox CCA 76/14.7 cm/sec. Prox CCA 88.8/13.9 cm/sec. Mid CCA 60.8/14.6 cm/sec. Mid CCA 75.3/16.3 cm/sec. Dist CCA 53.1/11.3 cm/sec. Dist CCA 63/16.3 cm/sec. Prox ICA 42.8/12.6 cm/sec. Prox ICA 47.6/13.5 cm/sec. Mid ICA 74.9/22 cm/sec. Mid ICA 65.1/19 cm/sec. Dist ICA 92.6/32.2 cm/sec. Dist ICA 84.9/25.6 cm/sec. Rt. ICA/CCA = 1.5. Lt. ICA/CCA = 1.1. Prox ECA 61.9/6.9 cm/sec. Prox ECA 65.1/9.1 cm/sec. Rt. Vert. 50/10.7 cm/sec. Lt. Vert. 71.7/16.8 cm/sec. Right Extracranial There is homogeneous, smooth atherosclerotic plaque noted in the right common carotid artery. There is heterogeneous, irregular atherosclerotic plaque noted in the right internal carotid artery. There is heterogeneous, irregular atherosclerotic plaque noted in the right external carotid artery. Antegrade flow is noted in the right vertebral artery. Left Extracranial There is homogeneous, smooth atherosclerotic plaque noted in the left common carotid artery. There is heterogeneous, irregular atherosclerotic plaque noted in the left internal carotid artery. There is intimal thickening but no significant atherosclerotic plaque noted in the left external carotid artery. Antegrade flow is noted in the left vertebral artery. Procedure Carotid Duplex 45211. Exam performed in department. Interpretation Summary Mild (<50%) stenosis right extracranial internal carotid. Mild (<50%) stenosis left extracranial internal carotid. Flow within the vertebral arteries is antegrade bilaterally. Ordering Physician: Meli Gómez Referring Physician: Meli Gómez Performed By: Jodee Brady RVT
== END | disposition home or self-care (01) ==
LOC: CVS 12:54
PROVIDERS: Family Provider Internal Medicine; PCP Internal Medicine; Referring Provider Internal Medicine; Visit Provider Internal Medicine
DX: I65.23 Occlusion and stenosis of bilateral carotid arteries (principal)
CPT/HCPCS: 93880

== ENCOUNTER → 2019-01-08 12:49 | Outpatient (CLI) | payer MEDICARE, OTHER, SELFPAY ==
[2018-09-25 14:16] VITALS: BMI 29.9
--- NOTE | 2019-01-08 12:54 | BD_ITS ---
STUDY: DUAL ENERGY X-RAY ABSORPTIOMETRY / DXA REASON FOR EXAM: Female, 83 years old. The patient is postmenopausal. Loss of height. TECHNIQUE: Bone Mineral Density (BMD) measurements of lumbar spine and bilateral hips were obtained. COMPARISON: Comparison is made with prior study dated January 03, 2017. FINDINGS: Lumbar Spine (L1-L4): g/cm2 (1.277) / T-score (0.7) / Z-score (2.5) Findings are suggestive of normal bone density with a low fracture risk. Increased kyphosis. Left Femur Total: g/cm2 (0.831) / T-score (-1.4) / Z-score (0.8) Left Femoral Neck: g/cm2 (0.746) / T-score (-2.1) / Z-score (0.2) Right Femur Total: g/cm2 (0.749) / T-score (-2.1) / Z-score (0.2) Right Femoral Neck: g/cm2 (0.691) / T-score (-2.5) / Z-score (-0.1) The T-Scores on the most recent prior examination were: Lumbar Spine (L1-L4): There has been no change of bone density since the previous examination. Left Femur Total: which represents a worsening of 1.3%. Right Femur Total: which represents an improvement of 1.1%. BD/Dexa Bone Density Study IMPRESSION: The patient is considered osteopenic as outlined below according to World Mandeep Organization (WHO) criteria with a high fracture risk. There has been improvement of bone density since the previous examination. Reference Information: The T-score is the number of standard deviations above or below the standard which is normal for young adults at their peak bone mineral density. The World Health Organization (WHO) interprets the T-scores as follows: Above -1 Normal bone density Between -1 and -2.5 Osteopenia Equal to / or below -2.5 Osteoporosis As a practical clinical guideline, osteopenia may be graded as follows: Mild -1 through -1.5 Moderate -1.6 through -2.0 Severe -2.1 through -2.4 The Z-score is the number of standard deviations above or below age-matched controls. A Z-score of less than -1.5 would be considered abnormal. References: 1. NIH Osteoporosis and Related Bone Diseases http://www.osteo.org 2. International Society for Clinical Densitometry http://www.iscd.org 3. National Osteoporosis Foundation http://www.nof.org Electronically Signed: Blaine Victor, at 13:22 EDT , Service support ,
== END ==
PROVIDERS: Family Provider Internal Medicine; PCP Internal Medicine; Referring Provider Internal Medicine; Visit Provider Internal Medicine
DX: M81.0 Age-related osteoporosis without current pathological fracture (principal)
CPT/HCPCS: 77080

== ENCOUNTER → 2019-01-31 13:08 | Outpatient (CLI) | payer MEDICARE, OTHER, SELFPAY ==
[2019-01-10 10:26] VITALS: BMI 29.5
--- NOTE | 2019-01-31 13:21 | RAD_ITS ---
STUDY: X-RAY CHEST REASON FOR EXAM: Female, 83 years old. Shortness of breath TECHNIQUE: PA and lateral views of the chest. COMPARISON: 03/16/2018 FINDINGS: There is hyperinflation of the lungs consistent with chronic obstructive lung disease (COPD). Small right pleural effusion which is unchanged. Normal size heart. Normal mediastinum and jolynn. Normal visualized pulmonary arteries. Normal visualized aortic arch and descending thoracic aorta. Normal visualized thoracic spine. Normal visualized ribs, clavicles, and shoulders. There is no demonstrated abnormality of the visualized soft tissue structures of the upper abdomen. RAD/Chest PA and Lateral IMPRESSION: Small right pleural effusion which is unchanged. Electronically Signed: Gordy Londono MD at 13:39 EDT Tel , Service support ,
--- NOTE | 2019-01-31 13:33 | ECHOD_ITS ---
Reason For Study: DYSPNEA Procedure This was a 2D Doppler, Color Flow transthoracic echocardiogram. Exam performed in department. Left Ventricle Normal LV size. The estimated ejection fraction is 60 %. Left ventricular systolic function is normal. No regional wall motion abnormalities noted. Right Ventricle Normal RV size. Normal systolic function. Atria Normal left atrium. Normal right atrium. Mitral Valve Normal mitral valve. Mild (1+) eccentric mitral valve insufficiency. Tricuspid Valve Normal tricuspid valve. Mild to moderate (1-2+) tricuspid valve insufficiency. Pulmonary artery systolic pressure is 54 mmHg. Aortic Valve Trisinus/trileaflet aortic valve. Mild focal aortic valve calcification. Peak aortic valve gradient 54 mmHg. Mean aortic valve gradient 30 mmHg. Calculated aortic valve area (continuity equation) is 1.1 cm2. Mild (1+) aortic valve insufficiency. Pulmonic Valve Normal pulmonic valve. Great Vessels Normal aortic root. The pulmonary artery is normal size. Normal inferior vena cava. Pericardium/Pleural No pericardial effusion. MMode/2D Measurements & Calculations LVIDd: 3.5 cm IVSd: 0.86 cm LVOT diam: 2.0 cm LVIDs: 2.0 cm LVPWd: 0.91 cm LVOT area: 3.1 cm2 RVDd: 2.9 cm FS: 43.0 % Ao root diam: 3.0 cm LAV(MOD-bp): 52.6 ml LA A4 area: 18.5 cm2 LAV(MOD-bp) Indexed: 31.3 ml/m2 LAV(MOD-sp2): 53.2 ml LAV(MOD-sp4): 50.8 ml LA dimension(2D): 3.1 cm RA A4 area: 12.7 cm2 Time Measurements MV dec time: 0.33 sec Doppler Measurements & Calculations MV E max enrique: 82.0 cm/sec Lat Peak E' Enrique: 9.3 cm/sec Med Peak E' Enrique: 6.1 cm/sec E/E' lat: 8.8 E/E' med: 13.5 Ao V2 max: 367.2 cm/sec AI max enrique: 327.9 cm/sec LV V1 max: 126.3 cm/sec Ao max P.0 mmHg AI max P.0 mmHg LV V1 max P.4 mmHg Ao V2 mean: 262.9 cm/sec AI dec slope: 161.3 cm/sec2 LV V1 mean P.7 mmHg Ao mean P.6 mmHg AI P1/2t: 595.5 msec LV V1 mean: 91.1 cm/sec Ao V2 VTI: 78.9 cm LV V1 VTI: 29.0 cm SAMMY(I,D): 1.1 cm2 SAMMY(V,D): 1.1 cm2 SV(LVOT): 89.6 ml TR max enrique: 346.1 cm/sec TR max P.3 mmHg Interpretation Summary Normal LV size. The estimated ejection fraction is 60 %. Left ventricular systolic function is normal. No regional wall motion abnormalities noted. Mild focal aortic valve calcification. Mean aortic valve gradient 30 mmHg. Calculated aortic valve area (continuity equation) is 1.1 cm2. Aortic valve area essentially unchanged. Compared to previous study, the left ventricular systolic function is the same.. Ordering Physician: Reece Rae Referring Physician: YAZMIN DERAS Performed By: Judi Portillo, FLORECITA, RVT
[2019-01-31 15:43] LABS: Anion Gap 7 (5-15); BUN 16 mg/dL (7-18); BUN/Creat Ratio 17.7 RATIO (10-20); Calcium,Total 8.8 mg/dL (8.5-10.1); Chloride 105 mmol/L (98-107); EST Glomerular Filtration Rate 63 mL/min (>60); Est Glom Filt Rate - Afr Amer 76 mL/min (>60); Glucose 80 mg/dL (74-106); Sodium Level 140 mmol/L (136-145)
== END ==
PROVIDERS: Family Provider Internal Medicine; PCP Internal Medicine; Referring Provider Internal Medicine Cardiovascular Disease; Visit Provider Internal Medicine Cardiovascular Disease
DX: R06.00 Dyspnea, unspecified (principal); I10 Essential (primary) hypertension; I35.0 Nonrheumatic aortic (valve) stenosis
CPT/HCPCS: 36415; 71046; 80048; 85025; 93306

== ENCOUNTER 2019-02-07 06:33 | Day surgery (SDC) | payer MEDICARE, OTHER, SELFPAY ==
[2019-01-10 10:26] VITALS: BMI 29.5
[2019-01-31 15:18] LABS: Absolute Lymphocyte Count 1.78 X10^3/uL (0.83-4.51); Absolute Neutrophil Count 5.4 X10^3/uL (2.0-7.7); Basophil# 0.05 X10^3/uL; Basophil% 0.6 % (0-1); Eosinophil# 0.19 X10^3/uL; Eosinophils% 2.3 % (0-5); Hemoglobin 13.4 g/dL (12.0-15.0); Lymphocyte # 1.78 X10^3/ul (4.0); Lymphocyte % 21.8 % (19-41); Mean Corp Hgb Conc 31.9 g/dL (32-36); Mean Corpuscular Hgb 29.6 pg (27.0-32.0); Mean Corpuscular Volume 92.9 fL (81-99); Mean Platelet Vol. 11.9 fl (6.2-12.0); Monocyte# 0.71 X10^3/uL; Monocyte% 8.7 % (0-10); NRBC Flagged by Analyzer 0 % (0-5); Neutrophil # 5.38 X10^3/uL (2.7-7.7); Neutrophil % 66.1 % (47-70); Platelet Count 233 K/mm3 (150-450); RBC Distribution Width CV 14.3 % (11.6-14.6); RBC Distribution Width SD 49.1 fl (35.1-43.9); Red Blood Count 4.52 M/mm3 (4.2-5.4); White Blood Count 8.2 K/mm3 (4.4-11.0)
[2019-02-07 08:56] LABS: Blood Gas Specimen Type VEN; VBG BASE EXCESS -2 mmol/L (-1.0-3.5); VBG Bicarbonate 24 mmol/L (22-26); VBG Oxygen Content 25 mmol/L (23-33); VBG PO2 36 mmHg (25-40); VBG SO2 68 % (50-70); VBG pCO2 40.3 mmHg (41-51); VBG pH 7.37 (7.32-7.42)
[2019-02-07 08:56] LABS: Blood Gas Specimen Type VEN; VBG BASE EXCESS -2 mmol/L (-1.0-3.5); VBG Bicarbonate 23 mmol/L (22-26); VBG Oxygen Content 24 mmol/L (23-33); VBG PO2 35 mmHg (25-40); VBG SO2 66 % (50-70); VBG pCO2 39.5 mmHg (41-51); VBG pH 7.37 (7.32-7.42)
[2019-02-07 08:56] LABS: Base Excess -3 mmol/L (-2 to +2); Bicarbonate 21.9 mmol/L (22-26); Blood Gas Specimen Type ART; PO2 63 mmHG (75-100); SO2 92 % (95-99); Total Carbon Dioxide 23 mmol/L; pCO2 35.1 mmHg (35-45)
--- NOTE | 2019-02-07 09:00 | CL.D_ITS ---
Patient Name: AYAD BA Study Date: 02/07/2019 Performing: Reece Rae MD Ht: 61.02 inches 155 cm : 1935 Wt: 158.73 lbs 72 kg Age: 83 Gender: female BSA: 1.71 PROCEDURE(S) PERFORMED [id number]/COR/LV CLINICAL PROFILE AND INDICATIONS Indications: Valvular Disease Heart Failure: None Stress/Imaging Date: 06/13/18Stress Test with SPECT MPI: Negative CAD Presentations: Symptom unlikely to be ischemic. CONCLUSIONS Mild pulmonary HTN, MILD CAD, MILD RECOMMENDATIONS Medical therapy DESCRIPTION OF PROCEDURE The patient arrived to the procedure lab. The risks and benefits of the procedure as well as a full d escription of our services here and current unavailability of surgical backup were fully explained to the patient and/or their significant other prior to the catheterization. The Timeout was completed, verifying the correct patient and procedure. The patient's procedural site was prepped and draped in the usual fashion. Local anesthetic was given subcutaneously to right groin region with Lidocaine 2%. Using a modified Seldinger technique, arterial access was obtained via the right femoral artery, a 5 Fr sheath was inserted. Venous access was obtained via the right femoral vein, a 7Fr sheath was inser vaughn. A 7Fr thermal dilution catheter was inserted and right heart pressures were recorded, it was the n advanced to PA position for cardiac outputs. O2 saturations were then obtained. Thermal dilution ca rdiac outputs were then recorded. The Thermal dilution catheter was then removed. Left Coronary Artery selective angiography was performed in multiple views using a 5 Fr. JL4 catheter. Rig ht Coronary Artery selective angiography was then performed in multiple views using a 5 Fr. 3DRC ([facility]) catheter. Left Ventriculography was performed in AVILA projection using a 5 Fr. Pigtail catheter . LV to AO pullback pressures were then recorded. CORONARY ANGIOGRAPHY DOMINANCE: Right Dominant LEFT HEART ASSESSMENT Left Ventricular Ejection Fraction: by LV Gram 60 % Normal LV wall motion Normal Left Ventricular systolic function RIGHT HEART ASSESSMENT Thermal CO: 5.21 Thermal CI: 3.05 Mookie CO: 4.8 Mookie CI: 2.81 PW: 6/6 5 PA: 41/10 21 RV: 45/-1 5 RA: 5/5 2 PVR: 246 SVR: 1244 Aortic Valve Area: 2.28 Aortic Valve Index: 1.33 Aortic Valve Mean Gradient: 10.5 Right Heart pressures - elevated LEFT MAIN: Mild calcification, No significant disease noted LEFT ANTERIOR DESCENDING ARTERY: PROX LAD: Moderate calcification, Moderate luminal irregularities up to 50% CIRCUMFLEX ARTERY: Mild calcification, Mild luminal irregularities less than 30% RIGHT CORONARY ARTERY: Mild calcification Mild luminal irregularities less than 30% VALVE FINDINGS: Aortic Valve Calcification - mild Aortic Valve Stenosis - mild COMPLICATIONS No Complications PROCEDURE MEDICATIONS Versed 1 mg IV Oxygen: 2 L/min via nasal cannula SUMMARY OF HEMODYNAMIC DATA Time AIR REST ECG 07:06:05 RA 5/5 (2) SV 08:34:33 RV 45/-1, 5 08:34:46 PA 41/10 (21) PA 08:36:13 PW 6/6 (5) PV 08:36:28 PA 47/12 (25) 08:39:57 RA 4/4 (3) 08:40:50 AO 130/57 (83) SA 08:42:17 LV 134/5, 8 08:48:39 LV 112/8, 14 08:48:46 LV 127/2, 9 08:49:42 LVp 128/-1, 8 08:49:50 AOp 121/50 (77) 08:49:55 Valve Area (c P-P/ms Time AIR REST Aortic 2.28 10.5 mn/270 ms7.0 pk/270 ms 08:49:50 Type SV CO (l/m) CI (l/m/ HR Time AIR REST Thermal 80.20 5.21 3.05 65 07:06:05 Mookie 73.80 4.80 2.81 65 07:06:05 Label % O2 Pres/Loc Time AIR REST AO 92 PV 08:45:17 PA 68 PA 08:45:33 RA 66 SV 08:45:37 Signed By Reece Rae MD On 02/07/2019 9:00:24 AM Reece Rae MD
== END 2019-02-07 14:40 | disposition home or self-care (01) ==
LOC: CLSP 06:35
PROVIDERS: Family Provider Internal Medicine; PCP Internal Medicine; Referring Provider Internal Medicine Cardiovascular Disease; Visit Provider Internal Medicine Cardiovascular Disease
DX: I25.10 Atherosclerotic heart disease of native coronary artery without angina pectoris (principal); I35.0 Nonrheumatic aortic (valve) stenosis; I27.21 Secondary pulmonary arterial hypertension; E78.5 Hyperlipidemia, unspecified; J44.9 Chronic obstructive pulmonary disease, unspecified; I12.9 Hypertensive chronic kidney disease with stage 1 through stage 4 chronic kidney disease, or unspecified chronic kidney disease; N18.9 Chronic kidney disease, unspecified; K21.9 Gastro-esophageal reflux disease without esophagitis; E03.9 Hypothyroidism, unspecified; H35.30 Unspecified macular degeneration; I65.23 Occlusion and stenosis of bilateral carotid arteries; M19.90 Unspecified osteoarthritis, unspecified site; I73.9 Peripheral vascular disease, unspecified; Z86.73 Personal history of transient ischemic attack (TIA), and cerebral infarction without residual deficits; Z87.09 Personal history of other diseases of the respiratory system; Z87.01 Personal history of pneumonia (recurrent); Z85.118 Personal history of other malignant neoplasm of bronchus and lung; Z90.2 Acquired absence of lung [part of]; Z79.82 Long term (current) use of aspirin; Z79.899 Other long term (current) drug therapy; Z87.891 Personal history of nicotine dependence
CPT/HCPCS: 36415; 82803; 85025; 93460; 99152; 99153; J7040; Q9967; C1751; C1769; C1894

== ENCOUNTER → 2019-09-12 13:29 | Outpatient (CLI) | payer MEDICARE, OTHER, SELFPAY ==
--- NOTE | 2019-09-12 13:31 | BI_ITS ---
MAMMOGRAPHY - BILATERAL SCREENING REASON FOR EXAM: Female, 84 years old. Routine annual screening examination. PERTINENT HISTORY: Non-contributory. Prior history of lung cancer. TECHNIQUE: Digital bilateral breast celine (3D mammographic acquisition) in the CC and MLO projections. 2-D mediolateral oblique (MLO) and craniocaudad (CC) views of both breasts were obtained. CAD: Full Field Digital Mammography with Computer Added Detection was performed. COMPARISON: Comparison is made with prior examination dated June 22, 2018 and June 19, 2017. FINDINGS: Breast Composition: The breasts are almost entirely fatty. There are no dominant masses or suspicious calcifications. Stable 4.6 mm x 5.3 mm well-defined nodule in the central lateral aspect of the left breast. This most likely represents a small lymph node. No other significant abnormalities are identified. There has been no significant change since the prior study. BI/SCREEN MAMM (CAD) W/CELINE BILAT IMPRESSION: Stable bilateral screening mammogram. Yearly follow-up mammogram recommended. (A) ASSESSMENT CATEGORY: BIRADS Category 2: Benign. A letter regarding these results will be sent to the patient by the facility within 30 days. Approximately 10% of breast cancers are not detected by mammography. A normal mammogram should not delay biopsy of a clinically suspicious abnormality. [id number] Electronically Signed: Blaine Victor, at 14:23 EDT , Service support ,
== END ==
PROVIDERS: PCP Internal Medicine; Referring Provider Internal Medicine; Visit Provider Internal Medicine
DX: Z12.31 Encounter for screening mammogram for malignant neoplasm of breast (principal)
CPT/HCPCS: 77063; 77067

== ENCOUNTER 2019-09-25 06:19 | Day surgery (SDC) | payer MEDICARE, OTHER, SELFPAY ==
--- NOTE | 2019-09-06 10:02 | HP_ITS ---
Intake Vital Signs 09/06/19 BMI 30.0 09/06/19 Height 5 ft 1 in 09/06/19 Weight: 153 lb 4 oz 09/06/19 BMI 28.9 09/06/19 BP 139/76 H 09/06/19 Blood Pressure Location Rt brachial 09/06/19 Position Sitting 09/06/19 Respiration 20 H 09/06/19 Pulse 86 09/06/19 Temp 98.1 F 09/06/19 Temp Source Temporal 09/06/19 Pulse Oximetry (%) 92 Intake Visit Reasons: Cscope Consult Chief Complaint: post colectomy c-scope Smocker Required: No Is patient in pain?: No Allergies albuterol sulfate [From DuoNeb] Allergy (Verified 09/06/19 09:42) Other ipratropium bromide [From DuoNeb] Allergy (Verified 09/06/19 09:42) Other morphine Allergy (Verified 09/06/19 09:42) UNCONTROLLED BEHAVIOR DANISH Inhibitors Adverse Reaction (Intermediate, Verified 09/06/19 09:42) cough Medications Multivit-Min/FA/Lycopene/Lut [Centrum Silver Tablet] 1 ea PO DAILY 07/11/14 [History Confirmed 09/06/19] aspirin 81 mg tablet,delayed release 81 mg PO DAILY 06/26/18 [History Confirmed 09/06/19] celecoxib 200 mg capsule 200 mg PO DAILY 06/26/18 [History Confirmed 09/06/19] fluticasone furoate 200 mcg-vilanterol 25 mcg/dose inhalation powder 1 inh INHALATION DAILY 06/26/18 [History Confirmed 09/06/19] hydrochlorothiazide 25 mg tablet 25 mg PO DAILY 06/26/18 [History Confirmed 09/06/19] omeprazole 20 mg capsule,delayed release 20 mg PO DAILY 06/26/18 [History Confirmed 09/06/19] rosuvastatin 5 mg tablet 5 mg PO QHS 06/26/18 [History Confirmed 09/06/19] umeclidinium 62.5 mcg/actuation blister powder for inhalation 1 inh INHALATION DAILY 06/26/18 [History Confirmed 09/06/19] vit C 250 mg-E 200 unit-zinc 40 mg-copper 1 [id number]-lrbzdc-rttkmh capsule 1 tab PO BID 06/26/18 [History Confirmed 09/06/19] levothyroxine 112 mcg tablet 112 mcg PO QHS 06/27/18 [History Confirmed 09/06/19] Calcium Carbonate [Calcium] 600 mg PO DAILY 08/07/18 [History Confirmed 09/06/19] Albuterol IH (ProAir) [Proair Hfa] 2 puff INHALATION 4X/DAY 09/21/18 [History Confirmed 09/06/19] Potassium Chloride [K-Dur] 40 meq PO BIDCM 09/21/18 [History Confirmed 09/06/19] traZODone [Desyrel] 100 mg PO QHS 09/21/18 [History Confirmed 09/06/19] diltiazem HCl 360 mg capsule,24 hr,extended release 360 mg PO DAILY 01/10/19 [History Confirmed 09/06/19] valsartan 80 mg tablet 40 mg PO DAILY #135 tab 01/10/19 [History Confirmed 09/06/19] valsartan 80 mg tablet 80 mg PO DAILY 01/10/19 [History Confirmed 09/06/19] Is last menstrual period known: No Post menopausal: Yes Patient : No PFSH Medical History Dyspnea (Chronic) Non-rheumatic aortic stenosis (Chronic) Secondary pulmonary arterial hypertension (Chronic) Essential hypertension (Chronic) Hyperlipidemia (Chronic) Tubulovillous adenoma of colon (Chronic) History of lung cancer (Resolved) COPD (chronic obstructive pulmonary disease) (Chronic) CRF (chronic renal failure) (Chronic) GERD (gastroesophageal reflux disease) (Chronic) Hypothyroidism (Chronic) Macular degeneration (Chronic) Occlusion and stenosis of bilateral carotid arteries (Chronic) Osteoarthritis (Chronic) PVD (peripheral vascular disease) (Chronic) Personal history of transient ischemic attack (TIA), 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) Acute respiratory failure with hypoxemia (Resolved) Constipation (Resolved) Cough (Resolved) Pneumonia (Resolved) Seasonal allergies (Resolved) Surgical History History of cataract extraction (Resolved) History of cholecystectomy (Resolved 2009) History of colectomy (Resolved 09/2018) History of colonoscopy (Resolved 08/09/18) History of lobectomy of lung (Resolved) History of right and left heart catheterization (Resolved 02/08/19) History of tonsillectomy (Resolved) History of total left knee replacement (Resolved) History of tubal ligation (Resolved) Status post total right knee replacement (Resolved) lung cancer 2012 rll lobectemy (Resolved) Family History Mother Liver failure Brother Myasthenia gravis Pacemaker Sister CAD (coronary artery disease) CABG x 4 CVA (cerebral vascular accident) Father Colon cancer Social History (Updated 09/06/19 @ 10:[address] Miguel Godinez MD) Smoking Status: Former smoker how long ago did patient quit smokin years ago alcohol intake: current alcohol intake frequency: holidays/special occasions only Alcohol type: wine caffeine: Yes Type: coffee Number of servings: 2 HPI HPI Surgical H&P: Yes HPI: AYAD BA, is a 84 F who presents to the office today for Evaluation for endoscopy. Patient underwent a laparoscopic right hemicolectomy on September 2018. This was done for a tubulovillous adenoma with focal area of high-grade dysplasia in the hepatic flexures. She also had numerous other tubular adenomas to the cecum and ascending colon. 13 lymph nodes were all negative. She has occasional diarrhea in addition she also has occasional constipation particularly if she eats spaghetti. She is currently on 81 mg of aspirin. She had a father who had colon cancer. ROS General General: Yes fatigue; no weight change, appetite, colon cancer, breast cancer or weakness HEENT HEENT: Yes eye surgery; no difficulty swallowing, eye injury, swollen glands or hoarseness Endo Endocrine: Yes thyroid disease; no diabetes mellitus, thyroid cancer, Hair loss, heat intolerance or cold intolerance Musc Musculoskeletal: Yes arthritis; no back problems, rheumatoid arthritis, gout or joint pain Cardio Cardiovascular: Yes heart disease and high blood pressure; no murmur, pacemaker, atrial fibrillation, heart attack, heart stent, palpitations, shortness of breat with exertion or chest pain Psych Psychiatric: No depression, anxiety or hearing voices Resp Respiratory: Yes shortness of breath, No sleep apnea, Yes cough, Yes COPD, No asthma, No emphysema, No wheezing Gastro Gastrointestinal: No abdominal pain, No nausea or vomiting, No diarrhea, No constipation, No blood in stool, Yes acid reflux, No hemorrhoids, No ulcers, No gallbladder problem, No black,tarry stools [place] Hematologic: No blood thinners, No blood disorders, No bleeding, No anemia, No blood clots Neuro Neurologic: No weakness Exam Const General: no acute distress, well developed, well hydrated Orientation: oriented to person, oriented to place, oriented to time [facility] Head: normocephalic, atraumatic Ears: external ears normal Mouth: moist mucous membranes Eyes Sclera: sclerae normal Pupils: normal by confrontation Neck Neck: no lymphadenopathy noted Neck mass: No Thyroid: thyroid normal, symmetrical Chest Chest palpation & inspection: normal inspection of the chest Resp Effort & Inspection: normal respiratory effort Auscultation: clear to auscultation bilaterally Percussion: percussion normal Cardio Rate: regular rate Rhythm: regular rhythm Heart Sounds: no murmurs GI Palpation: soft, no hepatosplenomegaly, no masses, nontender Rectal Exam: other Other: Rectal exam deferred. Extrem General: normal to inspection, no clubbing, cyanosis or edema Assessment & Plan Problems 1. Tubulovillous adenoma of colon D12.6 Plan I have discussed the above with the patient. I have offered the patient colonoscopy for evaluation. I have explained the risks/benefits of the procedure and described the procedure. I have discussed the risks with the patient, including but not limited to: infection, bleeding, perforation of the GI tract requiring emergency surgery, inability to complete the procedure, injury to any internal organs, complications of anesthesia, etc. - the patient understands and agrees to proceed. I have answered all the patient's questions to the patient's satisfaction and the patient has no further questions. The patient has been given instructions for the colon cleansing preparation. Coding Level of Care Code Off vis,est,level 3 Diagnoses Tubulovillous adenoma of colon D12.6 09/06/19 1002 <Electronically signed by Miguel montgomery MD> Date _ Miguel Godinez MD I have re-examined the patient. There are no clinical changes since date of exam.
[2019-09-25 06:55] VITALS: BP 129/61; PULSE 65; RESP 16; TEMP 36.5; O2SAT 97; BMI 29.2
[2019-09-25] MEDS: Lactated Ringers 1,000 ML 100 ML IV (07:00)
[2019-09-25 07:54] VITALS: BP 128/76; BP 129/61; PULSE 68; RESP 18; TEMP 36.2; O2SAT 93
--- NOTE | 2019-09-25 07:54 | OP.COLON_ITS ---
Patient Name: Myrna Banuelos Procedure Date: 09/25/2019 7:22 AM Date of : 1935 Age: 84 Procedure: Colonoscopy Indications: High risk colon cancer surveillance: Personal history of adenoma with high grade dysplasia Providers: Miguel Godinez MD Referring MD: Meli Gómez Medicines: See the Anesthesia note for documentation of the administered medications Patient Profile: This is an 84 year old female. Refer to note in patient chart for documentation of history and physical. Last Colonoscopy: July 2018. Complications: No immediate complications. Procedure: Pre-Anesthesia Assessment: - Prior to the procedure, a History and Physical was performed, and patient medications and allergies were reviewed. The patient's tolerance of previous anesthesia was also reviewed. The risks and benefits of the procedure and the sedation options and risks were discussed with the patient. All questions were answered, and informed consent was obtained. Prior Anticoagulants: The patient has taken no previous anticoagulant or antiplatelet agents. ASA Grade Assessment: II - A patient with mild systemic disease. After reviewing the risks and benefits, the patient was deemed in satisfactory condition to undergo the procedure. After I obtained informed consent, the scope was passed under direct vision. Throughout the procedure, the patient's blood pressure, pulse, and oxygen saturations were monitored continuously. The colonoscope was introduced through the anus and advanced to the ileocolonic anastomosis. The colonoscopy was performed without difficulty. The patient tolerated the procedure well. The quality of the bowel preparation was good. Scope In: 7:37:43 AM Scope Withdrawal Time 0 hours 5 minutes 42 seconds Scope Out: 7:47:59 AM Total Procedure Duration Time 0 hours 10 minutes 16 seconds Findings: A diffuse area of moderate melanosis was found in the entire colon. No biopsies or other specimens were collected for this exam. There was evidence of a prior opsh-[id number] ileo-colonic anastomosis in the proximal transverse colon. This was patent and was characterized by healthy appearing mucosa. The anastomosis was traversed. No biopsies or other specimens were collected for this exam. Non-bleeding internal hemorrhoids were found during retroflexion. The hemorrhoids were mild and small. The exam was otherwise without abnormality. Impression: - Melanosis in the colon. No specimens collected. - Patent [id number] ileo-colonic anastomosis, characterized by healthy appearing mucosa. No specimens collected. - Non-bleeding internal hemorrhoids. - The examination was otherwise normal. Recommendation: - Discharge patient to home. - Resume previous diet. - Continue present medications. - Repeat colonoscopy is not recommended due to current age (66 years or older) for surveillance. - Return to primary care physician (date not yet determined). Procedure Code(s): --- Professional --- G0105, Colorectal cancer screening; colonoscopy on individual at high risk Diagnosis Code(s): --- Professional --- Z86.010, Personal history of colonic polyps K63.89, Other specified diseases of intestine Z98.0, Intestinal bypass and anastomosis status K64.8, Other hemorrhoids CPT copyright 2017 [employer]. All rights reserved. The codes documented in this report are preliminary and upon revenue tax specialist review may be revised to meet current compliance requirements. MD Miguel Godoy MD 09/25/2019 7:54:18 AM This report has been signed electronically. Number of Addenda: 0 Note Initiated On: 09/25/2019 7:22 AM
--- NOTE | 2019-09-25 07:55 | OP.CCLET_ITS ---
09/25/2019 Meli Gómez Re : Colonoscopy procedure for Myrna Gómez This procedure was performed on Wednesday, September 25, 2019. My impressions and recommendations are as follows: Impressions : - Melanosis in the colon. No specimens collected. - Patent [id number]-[id number] ileo-colonic anastomosis, characterized by healthy appearing mucosa. No specimens collected. - Non-bleeding internal hemorrhoids. - The examination was otherwise normal. Recommendations : - Discharge patient to home. - Resume previous diet. - Continue present medications. - Repeat colonoscopy is not recommended due to current age (66 years or older) for surveillance. - Return to primary care physician (date not yet determined). My findings are described in the full procedure note, which is enclosed. If I can be of further assistance, please feel free to contact me at Doctor phone number(s): , Fax: [phone], Work: . Sincerely, MD Miguel Godoy MD 09/25/2019 7:54:18 AM This report has been signed electronically.
[2019-09-25 08:00] VITALS: BP 119/74; BP 129/61; PULSE 70; RESP 18; O2SAT 95
[2019-09-25 08:05] VITALS: BP 129/61; BP 136/77; PULSE 67; RESP 18; O2SAT 95
[2019-09-25 08:10] VITALS: BP 129/61; BP 140/77; PULSE 65; RESP 18; TEMP 36.2; O2SAT 95
[2019-09-25 08:51] VITALS: BP 129/61
== END 2019-09-25 08:53 | disposition home or self-care (01) ==
LOC: EN 06:25 → AC 06:36
PROVIDERS: Physician Assistant; PCP Internal Medicine; Referring Provider Internal Medicine; Visit Provider Surgery
PROC: 0DJD8ZZ Inspection of Lower Intestinal Tract, Via Natural or Artificial Opening Endoscopic (ICD-10-PCS; CPT 45378; principal; 2019-09-25 07:25)
DX: Z12.11 Encounter for screening for malignant neoplasm of colon (principal); K63.89 Other specified diseases of intestine; K64.8 Other hemorrhoids; I27.21 Secondary pulmonary arterial hypertension; I12.9 Hypertensive chronic kidney disease with stage 1 through stage 4 chronic kidney disease, or unspecified chronic kidney disease; N18.9 Chronic kidney disease, unspecified; E78.5 Hyperlipidemia, unspecified; J44.9 Chronic obstructive pulmonary disease, unspecified; K21.9 Gastro-esophageal reflux disease without esophagitis; E03.9 Hypothyroidism, unspecified; M19.90 Unspecified osteoarthritis, unspecified site; I73.9 Peripheral vascular disease, unspecified; I25.2 Old myocardial infarction; Z11.59 Encounter for screening for other viral diseases; Z79.82 Long term (current) use of aspirin; Z79.51 Long term (current) use of inhaled steroids; Z79.899 Other long term (current) drug therapy; Z90.49 Acquired absence of other specified parts of digestive tract; Z86.73 Personal history of transient ischemic attack (TIA), and cerebral infarction without residual deficits; Z87.891 Personal history of nicotine dependence; Z80.0 Family history of malignant neoplasm of digestive organs; Z85.118 Personal history of other malignant neoplasm of bronchus and lung
CPT/HCPCS: G0105; 87635; G2023; J7120; U0003

== ENCOUNTER → 2020-04-21 16:41 | Outpatient (CLI) | payer MEDICARE, OTHER, SELFPAY ==
[2019-12-26 13:10] VITALS: BMI 29.5
--- NOTE | 2020-04-21 16:43 | CT_ITS ---
HISTORY: SOB. HISTORY OF LUNG CA 8 YEARS AGO. ? PULMONARY NODULE. RLL REMOVED TECHNIQUE: Helically acquired images of the chest were obtained without IV contrast. Number of images including paperwork: [id number]. A radiation dose optimization technique was used for this scan. COMPARISON: 07/13/2018, 03/16/2018 FINDINGS: VASCULATURE: Unremarkable as imaged. HEART/PERICARDIUM: Mildly enlarged with prominent left ventricle. Coronary calcification. MEDIASTINUM: Unremarkable. ADENOPATHY: No pathologic appearing adenopathy. THYROID: Unremarkable visualized portions. LUNG PARENCHYMA: Emphysema. Right lower lobectomy. Right upper lobe lung nodule is is unchanged compared to 2019 measuring 5 mm in average diameter (2: 96) and decreased compared to 2018. No suspicious lung nodule. PLEURAL SPACES: Unremarkable. UPPER ABDOMEN: Right renal cyst for which no follow-up is warranted per consensus guidelines. OSSEOUS AND SOFT TISSUE STRUCTURES: No acute skeletal findings. DEVICES: None. CT/Chest without Contrast IMPRESSION: No significant change in right upper lobe lung nodule. No suspicious lung nodule detected. Individualized dose optimization techniques were used for this CT. at 0700 Reported and signed by: Marixa Adorno MD Electronically Signed: Marixa Adorno MD at 7:00 EST Tel , Service support ,
== END ==
PROVIDERS: PCP Internal Medicine; Referring Provider Internal Medicine Pulmonary Disease; Visit Provider Internal Medicine Pulmonary Disease
DX: R91.1 Solitary pulmonary nodule (principal)
CPT/HCPCS: 71250

== ENCOUNTER 2020-05-07 16:13 | Outpatient (RCR) | payer MEDICARE, OTHER, SELFPAY ==
[2019-12-26 13:10] VITALS: BMI 29.5
== END 2020-05-07 23:59 ==
LOC: IMMUN 16:13
PROVIDERS: PCP Internal Medicine; Visit Provider Family Medicine
DX: Z23 Encounter for immunization (principal)
CPT/HCPCS: 0011A; 0012A; 91301

== ENCOUNTER → 2020-07-17 11:58 | Outpatient (CLI) | payer MEDICARE, OTHER, SELFPAY ==
[2019-12-26 13:10] VITALS: BMI 29.5
== END ==
PROVIDERS: PCP Internal Medicine; Referring Provider Internal Medicine; Visit Provider Internal Medicine
DX: R94.31 Abnormal electrocardiogram [ECG] [EKG] (principal)
CPT/HCPCS: 84484

== ENCOUNTER → 2020-07-21 10:58 | Outpatient (CLI) | payer MEDICARE, OTHER, SELFPAY ==
[2019-12-26 13:10] VITALS: BMI 29.5
--- NOTE | 2020-07-21 11:01 | ECHOD_ITS ---
Version 2 Reason For Study: AORTIC STENOSIS Procedure This was a 2D Doppler, Color Flow transthoracic echocardiogram. The study was technically difficult. Exam performed in department. Left Ventricle Normal LV size. Left ventricular systolic function is normal. The estimated ejection fraction is 55 %. Stage 1 diastolic dysfunction. No regional wall motion abnormalities noted. Right Ventricle Normal RV size. Normal systolic function. Atria Normal left atrium. Normal right atrium. Mitral Valve Normal mitral valve. Tricuspid Valve Normal tricuspid valve. Moderate (2+) tricuspid valve insufficiency. Pulmonary artery systolic pressure is 56 mmHg. Aortic Valve Trisinus/trileaflet aortic valve. Mild focal aortic valve calcification. Peak aortic valve gradient 55 mmHg. Mean aortic valve gradient 36 mmHg. Moderate aortic stenosis. Mild (1+) aortic valve insufficiency. Pulmonic Valve Normal pulmonic valve. Great Vessels Normal aortic root. The pulmonary artery is normal size. Normal inferior vena cava. Pericardium/Pleural No pericardial effusion. MMode/2D Measurements & Calculations LVIDd: 4.7 cm IVSd: 1.2 cm LVOT diam: 2.0 cm LVIDs: 2.9 cm LVPWd: 1.1 cm LVOT area: 3.0 cm2 RVDd: 3.2 cm FS: 37.7 % LAV(MOD-bp): 50.3 ml LA A4 area: 18.3 cm2 LA dimension(2D): 4.0 cm LAV(MOD-bp) Indexed: 30.1 ml/m2 LAV(MOD-sp2): 47.4 ml LAV(MOD-sp4): 46.4 ml RA A4 area: 14.0 cm2 Time Measurements MV dec time: 0.16 sec Doppler Measurements & Calculations MV E max enrique: 74.1 cm/sec Lat Peak E' Enrique: 7.0 cm/sec Med Peak E' Enrique: 6.5 cm/sec MV A max enrique: 100.8 cm/sec E/E' lat: 10.5 E/E' med: 11.5 MV E/A: 0.73 Ao V2 max: 369.0 cm/sec AI max enrique: 389.9 cm/sec LV V1 max: 112.2 cm/sec Ao max P.5 mmHg AI max P.8 mmHg LV V1 max P.0 mmHg Ao V2 mean: 284.2 cm/sec AI dec slope: 226.0 cm/sec2 LV V1 mean P.3 mmHg Ao mean P.8 mmHg AI P1/2t: 505.3 msec LV V1 mean: 88.0 cm/sec Ao V2 VTI: 92.7 cm LV V1 VTI: 30.4 cm SAMMY(I,D): 1.00 cm2 SAMMY(V,D): 0.93 cm2 SV(LVOT): 92.7 ml PA V2 max: 141.0 cm/sec TR max enrique: 366.6 cm/sec TR max P.5 mmHg ECHO/Echo Complete Interpretation Summary Normal LV size. Left ventricular systolic function is normal. The estimated ejection fraction is 55 %. Stage 1 diastolic dysfunction. Mild focal aortic valve calcification. Moderate aortic stenosis. Mean aortic valve gradient 36 mmHg. Mild (1+) aortic valve insufficiency. Compared to prior study, there is no significant change. Ordering Physician: Meli Gómez Referring Physician: Meli Gómez Performed By: Laina Pendleton, FLORECITA, RVT
== END ==
PROVIDERS: PCP Internal Medicine; Visit Provider Internal Medicine
DX: I35.0 Nonrheumatic aortic (valve) stenosis (principal)
CPT/HCPCS: 93306

== ENCOUNTER 2021-08-20 15:56 | Emergency (ER) | payer MEDICARE, OTHER, SELFPAY ==
[2021-08-20 15:58] VITALS: BP 151/92; PULSE 69; RESP 18; TEMP 36.5; O2SAT 96
--- NOTE | 2021-08-20 16:20 | RAD_ITS ---
STUDY: X-RAY - RIGHT KNEE REASON FOR EXAM: Female, 86 years old. fall. Knee injury TECHNIQUE: 4 view(s) of the knee. COMPARISON: None. FINDINGS: There is a total knee arthroplasty in place. The alignment is grossly anatomic. No fractures visualized. There is subcutaneous edema overlying the patellar tendon. There are atherosclerotic calcifications. RAD/Knee 4 or More Views IMPRESSION: Total knee arthroplasty, grossly anatomic in alignment. Subcutaneous edema. Atherosclerosis. Electronically Signed: Cindy Argueta MD at 17:05 EDT ,
--- NOTE | 2021-08-20 16:21 | ED.VIS.FALL ---
HPI HPI - Fall History of Present Illness Chief Complaint: Fall Informant: patient Occured/Mechanism Occurred: Today Usually ambulates: Without assistance Pain/Injury Pain Location: lower extremity Quality of Pain: Sharp Current Severity: Mild Maximum Severity: Mild Associated Symptoms Associated Symptoms: Negative for Parasthesias, Weakness, Loss of function, Inability to ambulate and Loss of consciousness Narrative Narrative: 86-year-old female history of COPD, chronic renal disease, lung cancer, peripheral vascular disease. On aspirin. Got up at home today and fell injuring her right knee and left ankle. Said her left foot was asleep when she stood up but want to walk her left leg gave out she went down and has pain and swelling to her right knee and just some discomfort to her left ankle. She denies hitting her head. She denies any head, neck back chest or abdominal complaints. Prior similar symptoms: No Recent Illness/Hospitalization: No PFSH PFS Medical History COPD (chronic obstructive pulmonary disease) CRF (chronic renal failure) Essential hypertension GERD (gastroesophageal reflux disease) History of lung cancer Hyperlipidemia Hypothyroidism Macular degeneration Non-rheumatic aortic stenosis Occlusion and stenosis of bilateral carotid arteries Osteoarthritis Personal history of transient ischemic attack (TIA), and cerebral infarction without residual deficits Pneumonia PVD (peripheral vascular disease) Seasonal allergies 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 Home Medications orenldaf-ekp-TK-lycopen-lutein 1 ea PO DAILY 07/11/14 [History Last Taken Unknown] aspirin 81 mg tablet,delayed release 81 mg PO DAILY 06/26/18 [History Last Taken 02/07/19] celecoxib 200 mg capsule 200 mg PO DAILY 06/26/18 [History Last Taken Unknown] hydrochlorothiazide 25 mg tablet 25 mg PO DAILY 06/26/18 [History Last Taken Unknown] omeprazole 20 mg capsule,delayed release 20 mg PO DAILY 06/26/18 [History Last Taken 09/25/18 04:30] umeclidinium 62.5 mcg/actuation blister powder for inhalation 1 inh INHALATION DAILY 06/26/18 [History Last Taken Unknown] vit C 250 mg-vit E 90 mg-zinc 40 mg-copper 1 jo-dazvbn-bfwfwq capsule 1 tab PO BID 06/26/18 [History Last Taken Unknown] levothyroxine 112 mcg tablet 112 mcg PO QHS 06/27/18 [History Last Taken 02/07/19] calcium carbonate 600 mg PO DAILY 08/07/18 [History Last Taken Unknown] trazodone 100 mg PO QHS 09/21/18 [History Last Taken Unknown] diltiazem HCl 360 mg capsule,24 hr,extended release 360 mg PO DAILY 01/10/19 [History Last Taken 02/07/19] cetirizine 10 mg PO DAILY 09/20/19 [History Last Taken Unknown] albuterol sulfate 90 mcg/actuation aerosol inhaler 2 puff INHALATION 4X/DAY PRN 12/26/19 [History Last Taken Unknown] fluticasone fur. 100 mcg-umeclid 62.5 mcg-vilant 25 mcg inhalat.powder 1 inh INHALATION DAILY 12/26/19 [History Last Taken Unknown] rosuvastatin 5 mg tablet 5 mg PO .QOD tab 12/26/19 [History Last Taken Unknown] cholecalciferol (vitamin D3) 125 mcg (5,000 unit) capsule 125 mcg PO DAILY 08/24/20 [History Last Taken Unknown] potassium chloride 20 mEq tablet,extended release(part/cryst) 40 meq PO BIDCM 08/24/20 [History Last Taken Unknown] valsartan 80 mg tablet 80 mg PO DAILY #135 tab 08/24/20 [History Last Taken Unknown] Allergy/AdvReac Type Severity Reaction Status Date / Time morphine Allergy UNCONTROLLED Verified 08/20/21 16:07 BEHAVIOR DANISH Inhibitors AdvReac Intermediate cough Verified 08/20/21 16:07 ipratropium AdvReac Intermediate PASSING OUT Verified 08/20/21 16:07 Family History Mother Liver failure Brother Myasthenia gravis Pacemaker Sister CAD (coronary artery disease) CABG x 4 CVA (cerebral vascular accident) Father Colon cancer Surgical History History of cataract extraction History of cholecystectomy (2009) History of colectomy (09/2018) History of colonoscopy (08/09/18) History of lobectomy of lung History of right and left heart catheterization (02/08/19) History of tonsillectomy History of total left knee replacement History of tubal ligation lung cancer 2011 rll lobectemy Status post total right knee replacement Social History Smoking Status: Former smoker how long ago did patient quit smokin years ago alcohol intake: current alcohol intake frequency: holidays/special occasions only Alcohol type: wine caffeine: Yes Type: coffee Number of servings: 2 ROS ROS ED ROS Narrative Denies recent illness. Review of Systems ROS Unobtainable: Denies due to encephalopathy Constitutional Constitutional ED: Denies fever(s) Eyes Eyes: Denies change in vision ENT ENT ED: Denies ear pain Cardiovascular Cardiovascular: Denies chest pain Respiratory/Chest Respiratory/Chest: Denies dyspnea Gastrointestinal Gastrointestinal: Denies abdominal pain Genitourinary Genitourinary ED: Denies dysuria Musculoskeletal Musculoskeletal: Denies myalgias Integumentary Denies rash Neurologic Neurologic: Denies headache(s) Psychiatric Psychiatric: Denies depression Endocrine Endocrinology: Denies polyuria Hematologic/Lymphatic Hematologic/Lymphatic: Denies easy bruising Allergic/Immunologic Allergic/Immunologic ED: Denies urticaria EXAM Physical Exam Narrative Exam Narrative: 86-year-old female no acute distress. Vital signs stable afebrile. H EENT exam unremarkable atraumatic. C-spine nontender. Trachea midline. Lungs clear to auscultation bilaterally. Heart regular rhythm and rate rate about 70. 4/6 systolic ejection murmur. Chest wall nontender. Abdomen soft nontender. Pelvic girdle intact. Right shortening or rotation. Back and spine nontender no signs of trauma. Right knee swollen tender. Able to do flexion-extension. Right hip ankle and foot nontender normal range of motion. Left hip and knee nontender normal range of motion. She has had bilateral knee replacements. Left ankle is mild tenderness primarily anteriorly. No deformity. Dorsi plantarflexion intact. Achilles intact. Neurologically she is awake and alert acting appropriately. Const Vital Signs: 08/20/21 15:58 08/20/21 16:09 Temperature 97.7 F L Temperature Source Temporal Pulse Rate 69 Respiratory Rate 18 Respiratory Effort Normal Respiratory Depth Normal Respiratory Pattern Normal Blood Pressure 151/92 H Blood Pressure Mean 111 Pulse Ox 96 Oxygen Delivery Method Room Air Room Air Positive well nourished and well developed; Negative for cachectic, contractures or unkempt General Appearance ED: well developed and NAD; Negative for unkempt, cachectic or contractures Nutritional Appearance: Negative for cachectic HEENT Reports normocephalic atraumatic; Negative for trauma or tenderness Eyes PERRL and EOMs intact bilaterally General Eye ED: Negative for pale conjunctiva or scleral icterus Neck full ROM, no lymphadenopathy and supple General: Negative for tenderness Chest Wall inspection of chest normal and palpation of chest normal Resp normal respiratory effort, no retractions and clear to auscultation bilaterally Auscultation: Negative for rales, rhonchi or wheezes Cardio regular rate, regular rhythm, S1 normal heart sound and S2 normal heart sound; Negative for no murmurs Bruits: other Other Details: 4-6 systolic ejection murmur. GI non-tender and non-distended; Negative for no masses Auscultation: normoactive bowel sounds Palpation: soft; Negative for guarding Back/Spine no CVA tenderness General Back: Negative for CVA tenderness Cervical Spine: Negative for cervical spine tenderness Thoracic Spine / Upper Back: Negative for thoracic spinal tenderness Lumbar Spine / Lower Back: Negative for lumbar spinal tenderness Extremity full ROM; Negative for normal to inspection Extremity Narrative: Right knee swelling. Contusion. Able to do flexion-extension. 5. Left ankle mild tenderness anteriorly. Normal dorsi plantar flexion. No deformity. Neuro oriented x3 and moves all extremities [place] Coma Scale: document GCS findings Spontaneous Obeys Commands Oriented 15 Sensorium / Orientation: alert, oriented to person, oriented to place and oriented to time; Negative for orientation impaired, confused, lethargic or stuporous Motor Exam: strength 5/5 throughout Psych mental status grossly normal and thought process normal Appearance: Negative for unkempt Attitude: No agitated Mood & Affect: Negative for depressed or tearful Skin Lesions: no lesions Rashes: no rashes Trauma: Negative for abrasion or laceration MDM MDM MDM Narrative Medical decision making narrative: 86-year-old female fall with right knee and left ankle pain. X-rays being obtained. She did not anything for pain. Repeat exam patient doing well at 5:45 PM she will be discharged home. We went over x-ray results. Radiography Diagnostic Testing: Clinical Impression(s) from Imaging Studies Knee X-Ray 08/20/21 16:20 IMPRESSION: Total knee arthroplasty, grossly anatomic in alignment. Subcutaneous edema. Atherosclerosis. Electronically Signed: Cindy Argueta MD at 17:05 EDT , Ankle X-Ray 08/20/21 16:28 IMPRESSION: Normal x-ray examination of the ankle. Electronically Signed: Cindy Argueta MD at 17:05 EDT , Right knee x-ray interpreted by myself multiview shows soft tissue swelling. Prosthetic knee. No fracture. No dislocation. Left ankle x-ray. Interpreted by me. 3 views. Shows chronic changes. No fracture. Both the knee and ankle x-rays were interpreted by radiologist and myself. Discharge Plan Triage Chief Complaint: Fall ED Provider: Mukund Christianson Dx/Rx/DC Orders Clinical Impression: Fall, Contusion of knee, right, Sprain of left ankle Instructions: Bruises (Contusions) Prescriptions: No Action omeprazole 20 mg capsule,delayed release(DR/EC) 20 mg PO DAILY RF: 0 celecoxib [Celebrex] 200 mg capsule 200 mg PO DAILY RF: 0 Incruse Ellipta 62.5 mcg/actuation blister with device 1 inh INHALATION DAILY RF: 0 hydrochlorothiazide 25 mg tablet 25 mg PO DAILY RF: 0 aspirin [Adult Aspirin Regimen] 81 mg tablet,delayed release (DR/EC) 81 mg PO DAILY RF: 0 PreserVision AREDS-2 [id number] py-jldz-mq-mg capsule 1 tab PO BID RF: 0 rosuvastatin 5 mg tablet 5 mg PO .QOD RF: 0 diltiazem HCl 360 mg capsule,extended release 24 hr 360 mg PO DAILY RF: 0 valsartan 80 mg tablet 80 mg PO DAILY Qty: 135 RF: 0 Trelegy Ellipta 100-62.5-25 mcg blister with device 1 inh INHALATION DAILY RF: 0 cholecalciferol (vitamin D3) 125 mcg (5,000 unit) capsule 125 mcg PO DAILY RF: 0 gczwwmre-eyj-DM-lycopen-lutein 1 EACH tablet 1 ea PO DAILY RF: 0 levothyroxine 112 mcg tablet 112 mcg PO QHS RF: 0 calcium carbonate 600 MG tablet 600 mg PO DAILY RF: 0 trazodone 50 MG tablet 100 mg PO QHS RF: 0 albuterol sulfate 90 mcg/actuation HFA aerosol inhaler 2 puff inhalation 4X/DAY PRN (Reason: COPD) RF: 0 potassium chloride 20 mEq tablet,ER particles/crystals 40 meq PO BIDCM RF: 0 cetirizine 10 MG capsule 10 mg PO DAILY RF: 0 Primary Care Provider: Meli Gómez Referrals: Meli Gómez, DO [Primary Care Provider] - 1 Week if not improving Activity Restrictions/Additional Instructions: Ice and elevate both your right knee and your left ankle to decrease pain and swelling. Tylenol for pain. Your x-rays look good today. Follow-up your primary care physician if not improving. Disposition Disposition: Home, Self Care
--- NOTE | 2021-08-20 16:28 | RAD_ITS ---
STUDY: X-RAY - LEFT ANKLE REASON FOR EXAM: Female, 86 years old. fall. Ankle injury. TECHNIQUE: 3 view(s) of the ankle. COMPARISON: None. FINDINGS: Normal visualized distal tibia and fibula. Normal medial and lateral malleoli. Normal tibiotalar articulation and ankle mortise. Normal visualized talus and calcaneus. The visualized subtalar, talonavicular, calcaneocuboid and tarsal articulations are normal. The soft tissue structures are unremarkable. RAD/Ankle min 3 Views IMPRESSION: Normal x-ray examination of the ankle. Electronically Signed: Cindy Argueta MD at 17:05 EDT ,
--- NOTE | 2021-08-24 15:20 | CM.ED ---
ER RNCM DC F/u call: ED Visit 08/20/21 for fall, pain to Rt knee and Lt ankle Called patient listed number on demographics. No answer. VM did identify correct patient identity and this selling underwriter left contact for return call should she have any concerns, questions, or need of assistance. Colette Salazar RNCM
== END 2021-08-20 17:54 | disposition home or self-care (01) ==
PROVIDERS: Emergency Provider Emergency Medicine; PCP Internal Medicine; Visit Provider Emergency Medicine
DX: S80.01XA Contusion of right knee, initial encounter (principal); J44.9 Chronic obstructive pulmonary disease, unspecified; I27.21 Secondary pulmonary arterial hypertension; I73.9 Peripheral vascular disease, unspecified; I12.9 Hypertensive chronic kidney disease with stage 1 through stage 4 chronic kidney disease, or unspecified chronic kidney disease; S93.402A Sprain of unspecified ligament of left ankle, initial encounter; N18.9 Chronic kidney disease, unspecified; W19.XXXA Unspecified fall, initial encounter; Z87.891 Personal history of nicotine dependence; E78.5 Hyperlipidemia, unspecified; K21.9 Gastro-esophageal reflux disease without esophagitis; Z85.118 Personal history of other malignant neoplasm of bronchus and lung; E03.9 Hypothyroidism, unspecified; I65.23 Occlusion and stenosis of bilateral carotid arteries; Z86.73 Personal history of transient ischemic attack (TIA), and cerebral infarction without residual deficits; Z87.01 Personal history of pneumonia (recurrent); I35.0 Nonrheumatic aortic (valve) stenosis; M19.90 Unspecified osteoarthritis, unspecified site; Z79.82 Long term (current) use of aspirin; Z79.899 Other long term (current) drug therapy; Y92.009 Unspecified place in unspecified non-institutional (private) residence as the place of occurrence of the external cause; Z90.2 Acquired absence of lung [part of]; Z96.653 Presence of artificial knee joint, bilateral
CPT/HCPCS: 73564; 73610; 99282

== ENCOUNTER → 2021-12-27 | Outpatient (CLI) | payer MEDICARE, OTHER, SELFPAY ==
--- NOTE | 2021-12-27 13:43 | RAD_ITS ---
EXAM: XR CHEST, 2 VIEWS CLINICAL INDICATION: COUGH TECHNIQUE: Frontal and lateral views of the chest. This report was created using [employer] report generation technology. COMPARISON: 03/16/2018 FINDINGS: See Impression. RAD/Chest PA and Lateral IMPRESSION: 1. No change. 2. No consolidation, pleural effusion or pneumothorax. 3. Redemonstration of emphysema, worse at the upper lobes. 4. Redemonstration of right pleural parenchymal scarring. Electronically Signed: Yony Galeas MD at 18:45 EDT ,
[2021-12-27 14:01] LABS: BNP,B-Type NATRIURETIC PEPTIDE 78.6 pg/mL (0-100)
== END | disposition home or self-care (01) ==
LOC: LAB 13:13
PROVIDERS: PCP Internal Medicine; Referring Provider Internal Medicine Pulmonary Disease; Visit Provider Internal Medicine Pulmonary Disease
DX: J44.9 Chronic obstructive pulmonary disease, unspecified (principal); I27.20 Pulmonary hypertension, unspecified; R05.9 Cough, unspecified; R06.00 Dyspnea, unspecified
CPT/HCPCS: 36415; 71046; 83880; 87070; 87077; 87186; 87205

== ENCOUNTER → 2022-02-11 | Outpatient (CLI) | payer MEDICARE, OTHER, SELFPAY ==
--- NOTE | 2022-02-11 10:01 | ECHOD_ITS ---
Reason For Study: AORTIC STENOSIS Procedure This was a 2D Doppler, Color Flow transthoracic echocardiogram. Exam performed in department. Left Ventricle Normal LV size. Left ventricular systolic function is normal. The estimated ejection fraction is 65 %. No regional wall motion abnormalities noted. Right Ventricle Normal RV size. Normal systolic function. Atria Normal left atrium. Normal right atrium. Prominent eustachian valve. Mitral Valve Normal mitral valve. Mild (1+) eccentric mitral valve insufficiency. Tricuspid Valve Normal tricuspid valve. Moderately severe (3+) tricuspid valve insufficiency. Pulmonary artery systolic pressure is 94 mmHg. Severe pulmonary hypertension. Aortic Valve Trisinus/trileaflet aortic valve. Moderate focal aortic valve calcification. Peak aortic valve gradient 76 mmHg. Mean aortic valve gradient 40 mmHg. Severe aortic stenosis. Calculated aortic valve area (continuity equation) is 0.8 cm2. Mild (1+) aortic valve insufficiency. Pulmonic Valve Normal pulmonic valve. Great Vessels Normal aortic root. The pulmonary artery is normal size. Normal inferior vena cava. Pericardium/Pleural No pericardial effusion. MMode/2D Measurements & Calculations LVIDd: 4.2 cm IVSd: 1.1 cm LVOT diam: 2.0 cm LVIDs: 3.4 cm LVPWd: 1.1 cm LVOT area: 3.0 cm2 RVDd: 3.4 cm FS: 20.6 % Ao root diam: 3.5 cm LAV(MOD-sp4): 65.0 ml LVAd ap4: 25.3 cm2 LVLd ap4: 7.4 cm EDV(MOD-sp4): 76.0 ml EDV(sp4-el): 73.4 ml LVAs ap4: 13.7 cm2 LVLs ap4: 5.8 cm ESV(MOD-sp4): 27.8 ml ESV(sp4-el): 27.1 ml EF(MOD-sp4): 63.5 % EF(sp4-el): 63.2 % SV(MOD-sp4): 48.3 ml SV(sp4-el): 46.4 ml LA A4 area: 22.7 cm2 LA dimension(2D): 3.8 cm RA A4 area: 14.5 cm2 Time Measurements MV dec time: 0.28 sec Doppler Measurements & Calculations MV E max enrique: 64.2 cm/sec Lat Peak E' Enrique: 6.6 cm/sec Med Peak E' Enrique: 3.9 cm/sec MV A max enrique: 97.6 cm/sec E/E' lat: 9.7 E/E' med: 16.5 MV E/A: 0.66 MV V2 max: 108.9 cm/sec Ao V2 max: 435.5 cm/sec MV max P.7 mmHg MV dec slope: 227.4 cm/sec2 Ao max P.1 mmHg MV V2 mean: 56.9 cm/sec Ao V2 mean: 298.2 cm/sec MV mean P.5 mmHg Ao mean P.3 mmHg MV V2 VTI: 37.4 cm Ao V2 VTI: 103.3 cm MVA(VTI): 2.5 cm2 SAMMY(I,D): 0.90 cm2 SAMMY(V,D): 0.79 cm2 AI max enrique: 393.6 cm/sec LV V1 max: 115.3 cm/sec SV(LVOT): 93.2 ml AI max P.0 mmHg LV V1 max P.3 mmHg LV V1 mean P.3 mmHg AI dec slope: 178.1 cm/sec2 LV V1 mean: 86.1 cm/sec AI P1/2t: 647.2 msec LV V1 VTI: 31.1 cm PA V2 max: 168.5 cm/sec TR max enrique: 465.8 cm/sec PA V2 mean: 102.9 cm/sec TR max P.8 mmHg ECHO/Echo Complete Interpretation Summary Normal LV size. Left ventricular systolic function is normal. The estimated ejection fraction is 65 %. Severe aortic stenosis. Calculated aortic valve area (continuity equation) is 0.8 cm2. Mean aortic valve gradient 40 mmHg. Mild (1+) aortic valve insufficiency. Severe pulmonary hypertension. Compared to the previous the aortic valve stenosis is worse and the pulmonary h ypertension is worse. Ordering Physician: Cecelia Jensen Referring Physician: Cecelia Jensen Performed By: Eri Camarena RCS
== END | disposition home or self-care (01) ==
LOC: CVS 10:00
PROVIDERS: PCP Internal Medicine; Referring Provider Nurse Practitioner Gerontology; Visit Provider Nurse Practitioner Gerontology
DX: R06.02 Shortness of breath (principal); I27.21 Secondary pulmonary arterial hypertension; I35.0 Nonrheumatic aortic (valve) stenosis
CPT/HCPCS: 93306

== ENCOUNTER 2022-02-28 08:52 | Day surgery (SDC) | payer MEDICARE, OTHER, SELFPAY ==
[2022-02-21 17:54] LABS: Absolute Lymphocyte Count 1.76 X10^3/uL (0.83-4.51); Absolute Neutrophil Count 6.8 X10^3/uL (2.0-7.7); Basophil# 0.07 X10^3/uL; Basophil% 0.7 % (0-1); Eosinophils% 2.1 % (0-5); Hemoglobin 13.7 g/dL (12.0-15.0); Lymphocyte # 1.76 X10^3/ul (0.83-4.51); Lymphocyte % 18.4 % (19-41); Mean Corp Hgb Conc 33.4 g/dL (32-36); Mean Corpuscular Hgb 32.3 pg (27.0-32.0); Mean Corpuscular Volume 96.7 fL (81-99); Mean Platelet Vol. 12.1 fl (6.2-12.0); Monocyte# 0.73 X10^3/uL; Monocyte% 7.6 % (0-10); NRBC Flagged by Analyzer 0 % (0-5); Neutrophil # 6.76 X10^3/uL (2.7-7.7); Neutrophil % 70.9 % (47-70); Platelet Count 230 K/mm3 (150-450); RBC Distribution Width SD 50.4 fl (35.1-43.9); Red Blood Count 4.24 M/mm3 (4.2-5.4); White Blood Count 9.6 K/mm3 (4.4-11.0)
[2022-02-21 17:55] LABS: Anion Gap 9 (5-15); BUN 21 mg/dL (7-18); BUN/Creat Ratio 21.6 RATIO (10-20); Calcium,Total 9.4 mg/dL (8.5-10.1); Chloride 101 mmol/L (98-107); Creatinine, Serum 0.97 mg/dL (0.55-1.02); EST Glomerular Filtration Rate 58 mL/min (>60); Est Glom Filt Rate - Afr Amer 70 mL/min (>60); Glucose 79 mg/dL (74-106); Potassium 4.3 mmol/L (3.5-5.1); Sodium Level 136 mmol/L (136-145)
[2022-02-25 11:03] VITALS: BMI 30.7
--- NOTE | 2022-02-28 10:59 | CL.D_ITS ---
Patient Name: AYAD BA Study Date: 02/28/2022 Performing: Reece Rae MD Ht: 60 inches 152.4 cm : 1935 Wt: 156.99 lbs 71.21 kg Age: 86 Gender: female BSA: 1.68 PROCEDURE(S) PERFORMED [id number])[facility] INDICATIONS Indications: Valvular Disease Heart Failure: None Stress/Imaging Stress/Image Study Performed: No CAD Presentations: No Sxs, no angina. CONCLUSIONS Severe single-vessel coronary disease involving the right coronary artery and mild disease noted in the circumflex artery and mild disease noted in the left anterior descending artery with severe aortic stenosis and preserved left ventricular systolic function present. RECOMMENDATIONS Consider PCI to the right coronary artery and interval referral for TAVR for the aortic valve. DESCRIPTION OF PROCEDURE The patient arrived to the procedure lab. The risks and benefits of the procedure as well as a full description of our services here and current unavailability of surgical backup were fully explained to the patient and/or their significant other prior to the catheterization. The Timeout was completed, verifying the correct patient and procedure. The patient's procedural site was prepped and draped in the usual fashion. . Using a modified Seldinger technique, arterial access was obtained via the right radial artery, a 6Fr sheath was inserted. Left Coronary Artery selective angiography was performed in multiple views using a 5 Fr. 4.0 [place] catheter. Right Coronary Artery selective angiography was then performed in multiple views using a 5 Fr. 4.0 [place] catheter. CORONARY ANGIOGRAPHY DOMINANCE: Right Dominant LEFT HEART ASSESSMENT Left Ventricular Ejection Fraction: by Echo 60 % Normal LV wall motion Normal Left Ventricular systolic function LEFT MAIN: Mild calcification, No significant disease noted LEFT ANTERIOR DESCENDING ARTERY: Mild luminal irregularities less than 30% PROX LAD: Mild calcification CIRCUMFLEX ARTERY: No significant disease noted RAMUS: Mild luminal irregularities RIGHT CORONARY ARTERY: PROX RCA: Focal 90% stenosis and a calcified vessel with a mid segment 70% stenosis and a distal small vessel 70% stenosis VALVE FINDINGS: Aortic Valve Calcification - severe Aortic Valve Stenosis - severe COMPLICATIONS PROCEDURE MEDICATIONS Versed 1 mg IV Oxygen: 2 L/min via nasal cannula Brilinta 180 mg PO @ 02/28/2022 10:57:30 Heparin 6000 unit(s) IV 02/28/2022 10:57:16 SUMMARY OF HEMODYNAMIC DATA Time AIR REST ECG 09:17:45 AO 137/67 (94) SA 10:41:38 Signed By Reece Rae MD On 02/28/2022 10:58:30 eRece Rae MD
--- NOTE | 2022-02-28 12:10 | CT_ITS ---
STUDY: CTA CHEST REASON FOR EXAM: Female, 86 years old. Aortic dissection RADIATION DOSAGE (If Supplied By Facility): CTDIvol = ( 13.09 ) mGy, DLP = ( 755.54 ) mGycm TECHNIQUE: The examination was performed with the intravenous administration of IV 100mL Isovue-370. Post-processing of the angiographic images was performed, with multiplanar reformation and 3D reconstruction. Individualized dose optimization techniques were used for this CT. COMPARISON: None. FINDINGS: Normal enhancement of the main pulmonary artery and right and left pulmonary arteries. Normal enhancement of the bilateral peripheral pulmonary arteries. There is no demonstrated pulmonary embolism. 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 The dissection starts at the level of the origin of the descending thoracic aorta. Coronary artery calcification and stent placement. Normal mediastinum. Normal hilar regions. Normal visualized trachea and bronchi. The lungs are well expanded. Mild degree of increased markings in the lungs worse in the lower lobes suggestive of bibasilar scarring superimposed on the emphysematous changes worse in the upper lobes with bullous formation in the lateral aspect of the right upper lobe. Normal pleura. Normal chest wall structures. There are degenerative changes of thoracic spine. Right renal cyst. 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 The false lumen is not opacified. Electronically Signed: Blaine Victor MD at 13:09 EST ,
--- NOTE | 2022-02-28 12:45 | EKG12_ITS ---
Test Reason : PAIN Blood Pressure : / mmHG Vent. Rate : 062 BPM Atrial Rate : 062 BPM P-R Int : 162 ms QRS Dur : 100 ms QT Int : 438 ms P-R-T Axes : 028 053 -06 degrees QTc Int : 444 ms Somatic/Motion Artifact Normal sinus rhythm ST & T wave abnormality, consider inferior ischemia Abnormal ECG Confirmed by CAROLYNN REDMOND, STAN ([id number]), newspaper editor CARROLL TAYLOR ([id number]) on 03/02/2022 8:06:16 AM Referred By: Reece Rae Confirmed By:STAN PRADHAN MD
[2022-02-28 13:34] LABS: ACT Activated Clotting Time 260 sec (74-137)
[2022-02-28 13:37] LABS: ACT Activated Clotting Time 323 sec (74-137)
--- NOTE | 2022-02-28 14:18 | CRPHASE1_ITS ---
Patient Communication PHII Cardiac Rehab Discussed with Patient:: Yes Guide to Cardiac Rehab Given to Patient:: Yes Choice Program [facility] CR PHII:: Communication Given to CR, Refer to [facility] Refer Phase II Cardiac Rehab:: Yes - Patient transfer to other facility for more extensive procedures Sessions:: 36 sessions - 3 days/wk, 12 weeks Cardiac Rehabilitation Info Cardiac Rehabilitation Program Information: Cardiac Rehabilitation is important for patients like you who are recovering from a heart problem. Cardiac rehabilitation programs are recognized as integral to the continued care of the patient with coronary heart disease. The cardiac rehabilitation program is designed to optimize a patient's physical, psychological, and social functioning. Health career coordinator work in cardiac rehabilitation programs and assist you with getting the treatments you need to get stronger and healthier - like exercise, healthy eating habits, and medications. Cardiac rehabilitation has been show to help people with heart problems live longer and have better life enjoyment than people who do not go to cardiac rehabilitation. Please contact the Cardiac Rehabilitation Program at [facility] at in two weeks if you have not heard from them.
--- NOTE | 2022-02-28 14:20 | CRPH1.INSTRU ---
General Education CAD and cardiac anatomy and function:: Patient communicates acknowledgment Explanation of diagnoses and procedures:: Patient communicates acknowledgment Sign/Symptoms of ME:: Patient communicates acknowledgment Antiplatelet therapy: Patient communicates acknowledgment Proper use of NTG-SL: Patient communicates acknowledgment Emergency procedures and activation of EMS: Patient communicates acknowledgment Compliance of all prescribed medications: Patient communicates acknowledgment
--- NOTE | 2022-02-28 16:40 | CL.I_ITS ---
Patient Name: AYAD BA Study Date: 02/28/2022 Performing: Kassandra Parr MD Ht: 60 inches 152.4 cm : 1935 Wt: 156.99 lbs 71.21 kg Age: 86 Gender: female BSA: 1.68 PROCEDURE(S) PERFORMED IC12-(26464/C9600)ARIAN W/WO PTCA, SINGLE CORONARY ARTERY [id number] INTRAVASCULAR LITHOTRIPSY CLINICAL PROFILE AND CO-MORBIDITIES Indications: Valvular Disease Heart Failure: None Stress/Imaging Stress/Image Study Performed: No CAD Presentations: No Sxs, no angina. CONCLUSIONS Successful Shockwave lithotripsy/PTCA distal RCA using 2.5 mm balloon Papyrus used for ostial/Prox RCA dissection extending into aortic root. No further aortic root staining noted) RECOMMENDATIONS ASA Indefinitley Brilinta for at least 12 months Transfer to surgical center for close observation. DESCRIPTION OF PROCEDURE The patient arrived to the procedure lab. The risks and benefits of the procedure as well as a full description of our services here and current unavailability of surgical backup were fully explained to the patient and/or their significant other prior to the catheterization. The Timeout was completed, verifying the correct patient and procedure. The patient's procedural site was prepped and draped in the usual fashion. Using a modified Seldinger technique,arterial access was obtained via the right radial artery, a 6Fr sheath was inserted. Left Coronary Artery selective angiography was performed in multiple views using a 5 Fr. 4.0 Delta catheter. Right Coronary Artery selective angiography was then performed in multiple views using a 5 Fr. 4.0 Delta catheter.The images were reviewed and options discussed. A decision was then made to proceed with an Intervention, IVUS or other adjunct procedure. al.75 Guide catheter was inserted and engaged into the RCA. Angiogram performed pre balloon dilatation. runthrough Guide wire was advanced to the RCA. orsiro 3.0 x 40 Drug Eluting stent was advanced across the lesion in the right coronary, proximal Angiogram performed post stent deployment. orsiro 2.5 x 13 Drug Eluting stent was advanced across the lesion in the right coronary, proximal orsiro 3.0 x 9 Drug Eluting stent was advanced across the lesion in the right coronary, proximal nc emerge 3.00 x 15 Balloon catheter was inserted post stent. Angiogram performed post balloon dilatation. nc emerge 3.5 x 8 Balloon catheter was inserted post stent. Angiogram performed post balloon dilatation. nc emerge 3.00 x 15 Balloon catheter was inserted post stent. Angiogram performed post balloon dilatation. The arterial sheath was pulled and a TR Band was applied for hemostasis INTERVENTION INFORMATION LESION SITE: RCA (Distal) lesion length: 10 mm, Lesion Complexity: Non-High/Non-C Pre Stenosis: 70 % Pre intervention JILL flow: 3 PROCEDURE: Balloon Angioplasty Post Stenosis: 10 % Post intervention JILL flow: 3 Lesion Devices: [employer]force. cloudControl IVL 2.5x12 [employer]. cloudControl IVL cable sleeve LESION SITE: RCA (Proximal) Lesion Complexity: High/C, lesion length: 38 mm Pre Stenosis: 90 % Pre intervention JILL flow: 3 PROCEDURE: Drug Eluting Stent with pre and post dilatation Post Stenosis: 0 % Post intervention JILL flow: 3 Lesion Devices: Biotronik Aconexiro [place] MR ARIAN 3.0x40 Sonny Sci [place] EMERGE MR 3.00x15 BALLOON Biotronik 3.5 x 15 Papyrus Stent Sonny Sci [place] EMERGE MR 3.50x08 BALLOON Biotronik Aconexiro [place] MR ARIAN 3.0x9 COMPLICATIONS Other Vascular Complications Req RX PROCEDURE MEDICATIONS Versed 1 mg IV Fentanyl 25 mcg IV Fentanyl 25 mcg IV Oxygen: 2 L/min via nasal cannula Brilinta 180 mg PO @ 02/28/2022 10:57:30 Heparin given IA 02/28/2022 10:42:57 Heparin 6000 unit(s) IV 02/28/2022 10:57:16 Lasix 20 mg IV 02/28/2022 12:24:25 Nitro glycerin 25mg / 250ml D5W @ 5 mcg/min IV started 02/28/2022 11:44:28 Nitro glycerin 25mg / 250ml D5W @ 20 mcg/min (increased rate) 02/28/2022 12:02:57 Nitro glycerin 25mg / 250ml D5W @ 5 mcg/min IV started 02/28/2022 15:57:53 Nitro glycerin 25mg / 250ml D5W @ 10 mcg/min IV started 02/28/2022 16:05:06 Verapamil 2.5mg, 2000 units of Heparin given IA 02/28/2022 10:42:57 SUMMARY OF HEMODYNAMIC DATA Time AIR REST ECG 09:17:45 AO 137/67 (94) SA 10:41:38 ECG 15:22:23 16:39:03 Signed By Kassandra Parr MD On 02/28/2022 16:39:51 Kassandra Parr MD
== END 2022-02-28 16:40 | disposition other institution (70) ==
LOC: CLSP 08:54
PROVIDERS: Nurse Practitioner Gerontology; PCP Internal Medicine; Referring Provider Internal Medicine Cardiovascular Disease; Visit Provider Internal Medicine Cardiovascular Disease
DX: I35.0 Nonrheumatic aortic (valve) stenosis (principal); I25.10 Atherosclerotic heart disease of native coronary artery without angina pectoris; E78.5 Hyperlipidemia, unspecified; E03.9 Hypothyroidism, unspecified; I10 Essential (primary) hypertension; Z86.73 Personal history of transient ischemic attack (TIA), and cerebral infarction without residual deficits; Z87.891 Personal history of nicotine dependence; Z79.82 Long term (current) use of aspirin; Z79.899 Other long term (current) drug therapy; Z85.038 Personal history of other malignant neoplasm of large intestine
CPT/HCPCS: 36415; 71275; 80048; 85025; 85347; 92928; 93005; 93454; 99152; 99153; C1761; C1874; J7040; Q9967; C1725; C1769; C1887; C1894; C9600; J1940

== ENCOUNTER 2022-03-16 12:44 | Outpatient (CLI) | payer MEDICARE, OTHER, SELFPAY ==
--- NOTE | 2022-03-16 12:48 | CT_ITS ---
STUDY: CTA CHEST REASON FOR EXAM: Female, 86 years old. 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 -- please upload images to [facility] RADIATION DOSAGE (If Supplied By Facility): CTDIvol = ( 16.92 ) mGy, DLP = ( 355.65 ) mGycm TECHNIQUE: The examination was performed with the intravenous administration of IV 100mL Isovue-370. Post-processing of the angiographic images was performed, with multiplanar reformation and 3D reconstruction. Individualized dose optimization techniques were used for this CT. COMPARISON: Comparison is made with prior study 02/28/2022. FINDINGS: Normal enhancement of the main pulmonary artery and right and left pulmonary arteries. Normal enhancement of the bilateral peripheral pulmonary arteries. There is no demonstrated pulmonary embolism. There is atherosclerotic calcification of the aortic arch with tortuosity. There is residual mural thickening of the ascending thoracic aorta laterally at the site of the prior dissection. There is no contrast seen within the previously seen falsely lumen. There is no demonstrated aortic dissection. There are calcifications of the coronary arteries. Normal mediastinum. Normal hilar regions. Normal visualized trachea and bronchi. Hyperinflation. There is evidence of emphysematous changes in the upper lobes with bullous formation in the lateral aspect of the right upper lobe. Normal pleura. Normal chest wall structures. There are degenerative changes of thoracic spine. There is a 3.6 x 4.1 cm cyst arising from the upper pole of the right kidney. CT/CTA Chest W/WO Contrast IMPRESSION: Residual mural thickening along the right lateral wall of the ascending thoracic aorta without evidence of a dissection at this time. Electronically Signed: Blaine Victor MD at 13:45 EST ,
== END 2022-03-16 23:59 | disposition home or self-care (01) ==
LOC: CT 12:45
PROVIDERS: PCP Internal Medicine; Visit Provider Internal Medicine Cardiovascular Disease
DX: I71.21 Aneurysm of the ascending aorta, without rupture (principal); I71.010 Dissection of ascending aorta
CPT/HCPCS: 71275; Q9967; A4216

== ENCOUNTER → 2022-03-28 | Outpatient (CLI) | payer MEDICARE, OTHER, SELFPAY ==
[2022-03-28 17:55] LABS: Absolute Lymphocyte Count 1.41 X10^3/uL (0.83-4.51); Absolute Neutrophil Count 6.7 X10^3/uL (2.0-7.7); Basophil# 0.06 X10^3/uL; Basophil% 0.7 % (0-1); Eosinophil# 0.29 X10^3/uL; Eosinophils% 3.2 % (0-5); Hematocrit 38.1 % (37-47); Hemoglobin 12.1 g/dL (12.0-15.0); Lymphocyte # 1.41 X10^3/ul (0.83-4.51); Lymphocyte % 15.4 % (19-41); Mean Corp Hgb Conc 31.8 g/dL (32-36); Mean Corpuscular Hgb 31.3 pg (27.0-32.0); Mean Corpuscular Volume 98.4 fL (81-99); Mean Platelet Vol. 11.4 fl (6.2-12.0); Monocyte# 0.74 X10^3/uL; Monocyte% 8.1 % (0-10); NRBC Flagged by Analyzer 0 % (0-5); Neutrophil # 6.66 X10^3/uL (2.7-7.7); Neutrophil % 72.4 % (47-70); Platelet Count 307 K/mm3 (150-450); RBC Distribution Width CV 14.9 % (11.6-14.6); RBC Distribution Width SD 53.6 fl (35.1-43.9); Red Blood Count 3.87 M/mm3 (4.2-5.4); White Blood Count 9.2 K/mm3 (4.4-11.0)
[2022-03-28 18:20] LABS: Anion Gap 7 (5-15); BUN 19 mg/dL (7-18); BUN/Creat Ratio 21.7 RATIO (10-20); Calcium,Total 9.5 mg/dL (8.5-10.1); Chloride 104 mmol/L (98-107); Creatinine, Serum 0.88 mg/dL (0.55-1.02); EST Glomerular Filtration Rate 65 mL/min (>60); Est Glom Filt Rate - Afr Amer 78 mL/min (>60); Glucose 125 mg/dL (74-106); Potassium 3.9 mmol/L (3.5-5.1); Sodium Level 137 mmol/L (136-145)
== END | disposition home or self-care (01) ==
PROVIDERS: PCP Internal Medicine
DX: I35.0 Nonrheumatic aortic (valve) stenosis (principal)
CPT/HCPCS: 36415; 80048; 85025

== ENCOUNTER → 2022-06-22 | Outpatient (CLI) | payer MEDICARE, OTHER, SELFPAY ==
--- NOTE | 2022-06-22 15:49 | RAD_ITS ---
EXAM: XR CHEST, 2 VIEWS CLINICAL INDICATION: SOB TECHNIQUE: Frontal and lateral views of the chest. This report was created using [employer] report generation technology. 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 Emphysematous changes. No pneumothorax. No effusion. HEART: See below. MEDIASTINUM: Central airways and mediastinal contour are unremarkable. BONES/JOINTS: Unremarkable. SOFT TISSUES: Unremarkable. VASCULATURE: Surgical changes at the aortic root. RAD/Chest PA and Lateral IMPRESSION: 1. 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 2. Emphysematous changes. Electronically Signed: Chavo Alarcon MD at 3:52 EST ,
== END | disposition home or self-care (01) ==
LOC: MTRAD 15:48
PROVIDERS: PCP Internal Medicine; Referring Provider Internal Medicine Pulmonary Disease; Visit Provider Internal Medicine Pulmonary Disease
DX: R06.02 Shortness of breath (principal)
CPT/HCPCS: 71046

== ENCOUNTER → 2022-08-29 | Outpatient (CLI) | payer MEDICARE, OTHER, SELFPAY ==
--- NOTE | 2022-08-29 17:25 | RAD_ITS ---
INDICATION: Shortness of breath. EXAMINATION/TECHNIQUE: X-RAY - XR Chest 2 Views COMPARISON: June 22, 2022 chest x-ray FINDINGS: LINES/DEVICES: None. LUNGS: Elevation of the right hemidiaphragm and interstitial scarring in both lungs, stable appearance. No focal consolidation. Scarring at the right costophrenic angle versus effusion, stable appearance. No pneumothorax. MEDIASTINUM AND CARDIOVASCULAR STRUCTURES: Aortic valve replacement. Mildly enlarged cardiac silhouette, stable. Aortic calcification unchanged. Enlarged caliber main pulmonary arteries. BONES AND SOFT TISSUES: Osteopenia, scoliosis and degenerative changes, stable. RAD/Chest PA and Lateral IMPRESSION: No acute cardiopulmonary disease. Stable chest. Electronically Signed: Luther Verdugo MD at 18:10 EDT ,
[2022-08-29 17:37] LABS: BNP,B-Type NATRIURETIC PEPTIDE 320.8 pg/mL (0-100)
[2022-08-29 17:39] LABS: Troponin-I HS 28 pg/mL (3.0-54.0)
[2022-08-29 17:54] LABS: D-Dimer Quantitative (DVT/PE) 0.75 FEU/ug/m (0.27-0.49)
== END | disposition home or self-care (01) ==
LOC: LAB 17:06
PROVIDERS: PCP Internal Medicine; Referring Provider Internal Medicine; Visit Provider Internal Medicine
DX: R06.02 Shortness of breath (principal)
CPT/HCPCS: 36415; 71046; 83880; 84484; 85379

== ENCOUNTER → 2022-08-30 | Outpatient (CLI) | payer MEDICARE, OTHER, SELFPAY ==
--- NOTE | 2022-08-30 12:28 | CT_ITS ---
STUDY: CTA CHEST REASON FOR EXAM: Female, 87 years old. Elevated DDIMER and SOB, STAT -- elevated DDIMER and SOB, STAT RADIATION DOSAGE (If Supplied By Facility): CTDIvol = ( 8.69 ) mGy, DLP = ( 243.48 ) mGycm TECHNIQUE: The examination was performed with the intravenous administration of IV 75mL Isovue-370. Post-processing of the angiographic images was performed, with multiplanar reformation and 3D reconstruction. Individualized dose optimization techniques were used for this CT. COMPARISON: Comparison is made with prior study dated March 16, 2022. FINDINGS: Normal enhancement of the main pulmonary artery and right and left pulmonary arteries. Normal enhancement of the bilateral peripheral pulmonary arteries. There is no demonstrated pulmonary embolism. There is atherosclerotic calcification of the aortic arch with tortuosity. There is no demonstrated aortic dissection. There are calcifications of the coronary arteries. Prior aortic valve replacement. Normal mediastinum. Normal hilar regions. Normal visualized trachea and bronchi. Hyperinflation. Emphysematous changes with bullous formation more pronounced in the right upper lobe. Findings suggestive of a scarring in the posterior aspect of the right upper lobe. There is evidence of a subpleural bleb formation in the peripheral aspect of the right lower lobe. Mild increased markings in the right middle lobe suggestive of scarring. Normal pleura. Normal chest wall structures. There are degenerative changes of thoracic spine. There is a 4.3 cm x 3.9 cm cyst in the upper anterior aspect of the right kidney. CT/CTA Chest W/WO Contrast IMPRESSION: Emphysematous changes with scarring right upper lobe. No evidence of the pulmonary embolus. Right renal cyst. Electronically Signed: Blaine Victor MD at 14:10 EDT ,
[2022-08-30 13:31] LABS: CREATININE FINGERSTICK < 0.9 mg/dL (0.55-1.02); EGFR FINGERSTICK > 60.0000 mL/min (>60)
== END | disposition home or self-care (01) ==
LOC: CT 12:27
PROVIDERS: PCP Internal Medicine; Referring Provider Internal Medicine; Visit Provider Internal Medicine
DX: R79.89 Other specified abnormal findings of blood chemistry (principal)
CPT/HCPCS: 71275

== ENCOUNTER → 2022-10-14 | Outpatient (CLI) | payer MEDICARE, OTHER, SELFPAY ==
[2022-10-14 10:51] LABS: Erythrocyte Sedimentation Rate 8 mm/hr (0-30)
[2022-10-14 11:11] LABS: Absolute Lymphocyte Count 0.66 X10^3/uL (0.83-4.51); Absolute Neutrophil Count 7.1 X10^3/uL (2.0-7.7); Basophil# 0.05 X10^3/uL; Basophil% 0.6 % (0-1); Eosinophil# 0.15 X10^3/uL; Eosinophils% 1.7 % (0-5); Hematocrit 40.3 % (37-47); Hemoglobin 13.1 g/dL (12.0-15.0); Lymphocyte # 0.66 X10^3/ul (0.83-4.51); Lymphocyte % 7.5 % (19-41); Mean Corp Hgb Conc 32.5 g/dL (32-36); Mean Corpuscular Hgb 29.9 pg (27.0-32.0); Mean Platelet Vol. 12.1 fl (6.2-12.0); Monocyte# 0.79 X10^3/uL; Monocyte% 8.9 % (0-10); NRBC Flagged by Analyzer 0 % (0-5); Neutrophil # 7.13 X10^3/uL (2.7-7.7); Neutrophil % 80.6 % (47-70); Platelet Count 295 K/mm3 (150-450); RBC Distribution Width CV 15.7 % (11.6-14.6); Red Blood Count 4.38 M/mm3 (4.2-5.4); White Blood Count 8.8 K/mm3 (4.4-11.0)
[2022-10-14 17:08] LABS: AST(SGOT) 31 U/L (15-37); Alanine Aminotransfer ALT/SGPT 29 U/L (13-56); Albumin, Serum 3.7 g/dL (3.2-5.0); Alkaline Phosphatase 90 U/L (45-117); Anion Gap 7 (5-15); BUN 17 mg/dL (7-18); BUN/Creat Ratio 14.4 RATIO (10-20); CRP < 2.90 mg/L (0.0-3.0); Calcium,Total 10.4 mg/dL (8.5-10.1); Chloride 99 mmol/L (98-107); Creatinine, Serum 1.18 mg/dL (0.55-1.02); EST Glomerular Filtration Rate 46 mL/min (>60); Est Glom Filt Rate - Afr Amer 56 mL/min (>60); Free T3 2.6 pg/mL (2.18-3.98); Globulin 3.7 g/dL (2.2-4.2); Glucose 84 mg/dL (74-106); Potassium 4.8 mmol/L (3.5-5.1); Protein, Total 7.4 g/dL (6.4-8.2); Sodium Level 133 mmol/L (136-145); T4 Free Direct 1.55 ng/dL (0.76-1.46)
== END | disposition home or self-care (01) ==
LOC: LABSPEC 10:20
PROVIDERS: PCP Internal Medicine; Referring Provider Internal Medicine; Visit Provider Internal Medicine
DX: E03.9 Hypothyroidism, unspecified (principal)
CPT/HCPCS: 80053; 84439; 84443; 84481; 85025; 85652; 86140

== ENCOUNTER → 2022-10-31 | Outpatient (CLI) | payer MEDICARE, OTHER, SELFPAY ==
--- NOTE | 2022-10-31 17:52 | CT_ITS ---
STUDY: CT ABDOMEN AND PELVIS WITH CONTRAST - URINARY TRACT REASON FOR EXAM: Female, 87 years old. Abnormal weight loss -- abnormal weight loss RADIATION DOSAGE (If Supplied By Facility): CTDIvol = ( 26.50 ) mGy, DLP = ( 657.85 ) mGycm TECHNIQUE: Oral and amp; IV Readi-CAT and amp; 100mL Isovue-370 was administered. Transaxial images were obtained from the dome of the diaphragm to the symphysis pubis subsequent to intravenous contrast administration. Multiplanar coronal and sagittal images were reformatted. Individualized Dose Optimization Techniques Were Used For This CT. COMPARISON: Prior study dated: July 18, 2018 FINDINGS: There are emphysematous changes in the visualized lungs. Axial there are coronary artery calcifications. There is a prosthetic aortic valve in place. Normal liver. There are surgical clips in the gallbladder fossa consistent with a prior cholecystectomy. Normal spleen. Normal pancreas. Normal bilateral adrenal glands. Normal visualized stomach. Normal small intestine. There are multiple colonic diverticula consistent with diverticulosis. There is non-visualization of the appendix. There is diffuse atherosclerotic calcification of the abdominal aorta, without a demonstrated aneurysm. No retroperitoneal adenopathy. There is a right renal cyst again visualized. There are grossly stable to small to characterize low-attenuation foci within the left kidney that likely reflects cysts. Normal urinary bladder. Normal abdominal wall. There are diffuse degenerative changes of the visualized lumbar spine. There is a levoscoliosis of the lumbar spine. CT/Abdomen/Pelvis WITH Contrast IMPRESSION: Emphysema. Atherosclerosis. Colonic diverticulosis. Degenerative changes of the lumbar spine. Electronically Signed: Cindy Argueta MD at 8:36 EDT ,
== END | disposition home or self-care (01) ==
LOC: CT 17:41
PROVIDERS: PCP Internal Medicine; Referring Provider Internal Medicine; Visit Provider Internal Medicine
DX: R63.4 Abnormal weight loss (principal)
CPT/HCPCS: 74177; Q9967; A4216

== ENCOUNTER → 2022-11-07 | Outpatient (CLI) | payer MEDICARE, OTHER, SELFPAY ==
[2022-11-07 13:32] LABS: BNP,B-Type NATRIURETIC PEPTIDE 489.3 pg/mL (0-100)
== END | disposition home or self-care (01) ==
PROVIDERS: PCP Internal Medicine; Referring Provider Internal Medicine Pulmonary Disease; Visit Provider Internal Medicine Pulmonary Disease
DX: R06.00 Dyspnea, unspecified (principal); I27.20 Pulmonary hypertension, unspecified
CPT/HCPCS: 36415; 83880

== ENCOUNTER 2023-01-07 13:08 | Inpatient (IN) | payer MEDICARE, OTHER, SELFPAY ==
[2023-01-07] VITALS (14 sets, daily range): BP systolic 90–148; BP diastolic 46–108; PULSE 63–93; RESP 18–30; TEMP 36.3–36.9; O2SAT 84–98; BMI 22.7; BMI 25.4
--- NOTE | 2023-01-07 13:19 | EKG12_ITS ---
Test Reason : SOB Blood Pressure : / mmHG Vent. Rate : 083 BPM Atrial Rate : 083 BPM P-R Int : 158 ms QRS Dur : 102 ms QT Int : 402 ms P-R-T Axes : 055 130 038 degrees QTc Int : 472 ms Normal sinus rhythm Right axis deviation Right ventricular hypertrophy Nonspecific ST abnormality Abnormal ECG Confirmed by BESSIE REDMOND, AMADO ([id number]), business editor SAHIL BURTON ([id number]) on 01/10/2023 10:36:04 AM Referred By: Confirmed By:SUSHILA LA MD
--- NOTE | 2023-01-07 13:21 | ED.VIS.DYS ---
HPI History of Present Illness Chief Complaint: Shortness of Breath Narrative Narrative: Presents with dyspnea. She is on 4 L chronically of oxygen at home, she was found to be hypoxic at 82% on her home 4 L. She was brought in by paramedics. No fevers or chills. Symptoms were worse over the past few days. 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) Dyspnea Essential hypertension GERD (gastroesophageal reflux disease) History of lung cancer Hyperlipidemia Hypothyroidism Macular degeneration Non-rheumatic aortic stenosis Occlusion and stenosis of bilateral carotid arteries Osteoarthritis Personal history of transient ischemic attack (TIA), and cerebral infarction without residual deficits Pneumonia PVD (peripheral vascular disease) Seasonal allergies 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 Home Medications amdyusio-yro-jobir acid 0.4 mg-lycopene 300 mcg-lutein 250 mcg tablet 1 ea PO DAILY SUPPLEMENT 07/11/14 [History Last Taken Unknown] aspirin 81 mg tablet,delayed release (Adult Aspirin Regimen) 81 mg PO DAILY HEART HEALTH 06/26/18 [History Last Taken 02/28/22] celecoxib 200 mg capsule (Celebrex) 200 mg PO DAILY PAIN 06/26/18 [History Last Taken Unknown] omeprazole 20 mg capsule,delayed release 20 mg PO DAILY GERD 06/26/18 [History Last Taken 09/25/18 04:30] umeclidinium 62.5 mcg/actuation blister powder for inhalation (Incruse Ellipta) 1 inh inhalation DAILY COPD 06/26/18 [History Last Taken Unknown] vit C 250 mg-vit E 90 mg-zinc 40 mg-copper 1 [id number]-ghjqrf-ynljrz capsule (PreserVision AREDS-2) 1 tab PO BID SUPPLEMENT 06/26/18 [History Last Taken Unknown] levothyroxine 112 mcg tablet 112 mcg PO QHS THYROID 06/27/18 [History Last Taken 02/28/22] trazodone 50 mg tablet 100 mg PO QHS SLEEP 09/21/18 [History Last Taken Unknown] diltiazem HCl 360 mg capsule,24 hr,extended release 360 mg PO DAILY 01/10/19 [History Last Taken 02/28/22] cetirizine 10 mg capsule 10 mg PO DAILY allergies 09/20/19 [History Last Taken Unknown] albuterol sulfate 90 mcg/actuation aerosol inhaler 2 puff inhalation 4X/DAY PRN COPD 12/26/19 [History Last Taken Unknown] cholecalciferol (vitamin D3) 125 mcg (5,000 unit) capsule 125 mcg PO DAILY 08/24/20 [History Last Taken Unknown] potassium chloride 20 mEq tablet,extended release(part/cryst) 40 meq PO BIDCM POTASSIUM 08/24/20 [History Last Taken Unknown] valsartan 80 mg tablet 80 mg PO DAILY bp #135 tabs 08/24/20 [History Last Taken 02/28/22] prednisone 10 mg tablet 10 mg PO DAILY PRN Allergy Symptoms 02/10/22 [History Last Taken Unknown] ticagrelor 90 mg tablet (Brilinta) 90 mg PO BID 03/08/22 [History Last Taken Unknown] acetaminophen 500 mg tablet 1,000 mg PO QAM 06/07/22 [History Last Taken Unknown] calcium carbonate 600 mg-vitamin D3 5 mcg (200 unit) capsule (Calcium 600 + D(3)) 1 cap PO QAM 06/07/22 [History Last Taken Unknown] coenzyme Q10 100 mg capsule 100 mg PO DAILY 06/07/22 [History Last Taken Unknown] docusate sodium 100 mg capsule 300 mg PO BID 06/07/22 [History Last Taken Unknown] fluticasone furoate 200 mcg-vilanterol 25 mcg/dose inhalation powder (Breo Ellipta) 1 inh inhalation DAILY 06/07/22 [History Last Taken Unknown] guaifenesin 600 mg tablet, extended release 12 hr (Mucinex) 600 mg PO BID 06/07/22 [History Last Taken Unknown] hydrochlorothiazide 25 mg tablet 25 mg PO DAILY 06/07/22 [History Last Taken Unknown] hydrocortisone valerate 0.2 % topical cream 1 applic topical DAILY 06/07/22 [History Last Taken Unknown] lactobacillus combination no.9 4 billion cell capsule (Adult 50 Plus Probiotic) 4,000 mmu cells PO BID 06/07/22 [History Last Taken Unknown] omega-3 fatty acids 1,000 mg capsule 1,000 mg PO DAILY 06/07/22 [History Last Taken Unknown] rosuvastatin 20 mg tablet 20 mg PO DAILY 06/07/22 [History Last Taken Unknown] sildenafil (pulm.hypertension) 20 mg tablet 60 mg PO TID 10/04/22 [History Last Taken Unknown] spironolactone 50 mg tablet (Aldactone) 50 mg PO DAILY #90 tabs 10/04/22 [Rx Last Taken Unknown] Allergy/AdvReac Type Severity Reaction Status Date / Time morphine Allergy UNCONTROLLED Verified 10/04/22 15:21 BEHAVIOR DANISH Inhibitors AdvReac Intermediate cough Verified 10/04/22 15:21 ipratropium AdvReac Intermediate PASSING OUT Verified 10/04/22 15:21 Family History Mother Liver failure Brother Myasthenia gravis Pacemaker Sister CAD (coronary artery disease) CABG x 4 CVA (cerebral vascular accident) Father Colon cancer Surgical History History of cataract extraction History of cholecystectomy (2009) History of colectomy (09/2018) History of colonoscopy (08/09/18) History of coronary artery stent placement (02/28/22) History of lobectomy of lung History of right and left heart catheterization (02/08/19) History of right heart catheterization (RHC) (07/22/22) History of tonsillectomy History of total left knee replacement History of transcatheter aortic valve replacement (TAVR) (04/04/22) History of tubal ligation lung cancer 2012 rll lobectemy Status post total right knee replacement Social History Smoking Status: Former smoker how long ago did patient quit smokin years ago alcohol intake: current alcohol intake frequency: holidays/special occasions only Alcohol type: wine caffeine: Yes Type: coffee Number of servings: 2 ROS ROS ED ROS Narrative Past medical history: Reviewed Medications: Reviewed Social history: Noncontributory Review of systems: All systems negative except as indicated General: No fever Eyes: No visual changes ENT: No upper airway congestion, normal voice Neck: No neck pain Cardiovascular: No chest pain Respiratory: Dyspnea as in HPI Gastrointestinal: No abdominal pain, nausea vomiting or diarrhea Genitourinary: No dysuria Musculoskeletal: Denies myalgias no difficulty with ambulation Skin: No rash Neurological: No memory loss, confusion or any focal weakness EXAM Physical Exam Narrative Exam Narrative: Physical exam General: Appears uncomfortable. Head: Normocephalic, Atraumatic Eyes: Conjunctiva not pale ENT: Moist mucous membranes Neck: Supple, Nontender, No lymphadenopathy Cardiovascular: Regular rate, Regular rhythm Respiratory: Bilateral end expiratory wheezing, coarse breath sounds. Bronchial breath sounds. Abdomen: Soft, Nontender, Nondistended Back: Nontender, Normal Inspection. Negative for: CVA tenderness Extremities: Nontender, No edema Skin: Normal color, No rash Neurological: Alert, Normal Strength, Normal Sensation Const Vital Signs: 01/07/23 13:09 01/07/23 13:16 01/07/23 13:44 Temperature 97.9 F Temperature Source Temporal Pulse Rate 87 91 Respiratory Rate 26 H 27 H Respiratory Effort Short of Breath Accessory Muscle Use Respiratory Pattern Tachypnea Blood Pressure 136/69 H 130/108 H Blood Pressure Mean 91 115 Pulse Ox 92 84 Oxygen Delivery Method Nasal Cannula Nasal Cannula Nasal Cannula Oxygen Flow Rate (L/min) 6 6 6 01/07/23 13:44 01/07/23 13:37 01/07/23 14:13 Temperature Temperature Source Pulse Rate 90 93 Respiratory Rate 30 H 27 H Respiratory Effort Respiratory Pattern Blood Pressure 148/73 H Blood Pressure Mean 98 Pulse Ox 95 Oxygen Delivery Method Nasal Cannula Nasal Cannula Oxygen Flow Rate (L/min) 6 6 MDM MDM MDM Narrative Medical decision making narrative: EKG: Sinus rhythm with a rate of 83. Normal [place]. QTc is slightly prolonged at 472. Right axis deviation. Nonspecific ST changes throughout. No acute ischemic changes Interpreted by emergency doctor Chest x-ray read by me as normal MDM: Patient is on a Ventimask, she is tolerating it. VBG is unremarkable there is no obvious signs of infection other than a white count of 11,000 however she has quite a bit of sputum production and it is yellow, the sputum started after the nebulizers and she was suctioned by respiratory. Initially the cough was somewhat dry. Regardless because of this patient will be placed on antibiotics. Blood cultures were obtained. She likely does have an infectious etiology to her COPD exacerbation. I will talk to the hospitalist for admission. Steroids were administered. Lab Data Labs: Laboratory Results - last 24 hr 01/07/23 13:25 WBC 11.9 H RBC 4.16 L Hgb 11.9 L Hct 39.0 MCV 93.8 MCH 28.6 MCHC 30.5 L RDW Std Deviation 62.7 H RDW Coeff of Fernanda 18.2 H Plt Count 251 MPV 11.5 Immature Gran % (Auto) 0.300 Neut % (Auto) 71.2 H Lymph % (Auto) 14.8 L [place] % (Auto) 9.6 Eos % (Auto) 3.5 Baso % (Auto) 0.6 Absolute Neuts (auto) 8.5 H Absolute Lymphs (auto) 1.77 Nucleated RBC % 0 Sodium 138 Potassium 3.9 Chloride 103 Carbon Dioxide 30.0 Anion Gap 5 BUN 16 Creatinine 0.93 Estim Creat Clear Calc 30.03 Est GFR (MDRD) Af Amer 73 Est GFR (MDRD) Non-Af 60 BUN/Creatinine Ratio 17.1 Glucose 113 H Lactic Acid 2.6 H* Calcium 9.3 Troponin I High Sens 45 B-Natriuretic Peptide 248.1 H ABG Data ABG results: ABG 01/07/23 13:30 Specimen Type [place] Sample Site Not entered VBG pH 7.38 VBG pO2 39 VBG HCO3 30 H VBG Total CO2 31 VBG O2 Sat (Calc) 71 H VBG Base Excess 4 H POC Mix VBG pCO2 Pt Tmp 50.5 O2 Delivery Device NRB Radiography Diagnostic Testing: Clinical Impression(s) from Imaging Studies Chest X-Ray 01/07/23 13:55 IMPRESSION: Stable borderline cardiomegaly. Right-sided pleural-parenchymal densities consistent with postinflammatory change. Electronically Signed: Sarkis Hutton MD at 14:25 EDT , Discharge Plan Triage Chief Complaint: Shortness of Breath ED Provider: Luther Goodson Dx/Rx/DC Orders Clinical Impression: COPD exacerbation, Essential hypertension, Hyperlipidemia, Hypoxia Prescriptions: No Action omeprazole 20 mg capsule,delayed release(DR/EC) 20 mg PO DAILY celecoxib [Celebrex] 200 mg capsule 200 mg PO DAILY Incruse Ellipta 62.5 mcg/actuation blister with device 1 inh INHALATION DAILY aspirin [Adult Aspirin Regimen] 81 mg tablet,delayed release (DR/EC) 81 mg PO DAILY Patient Comments: stop 5 days preop PreserVision AREDS-2 [id number] ff-[id number]-fy-mg capsule 1 tab PO BID diltiazem HCl 360 mg capsule,extended release 24 hr 360 mg PO DAILY valsartan 80 mg tablet 80 mg PO DAILY Qty: 135 Rx Instructions: 1 tab qam 1/2 tab qpm cholecalciferol (vitamin D3) 125 mcg (5,000 unit) capsule 125 mcg PO DAILY prednisone 10 mg tablet 10 mg PO DAILY PRN (Reason: Allergy Symptoms) Brilinta 90 mg tablet 90 mg PO BID rosuvastatin 20 mg tablet 20 mg PO DAILY omega-3 fatty acids 1,000 mg capsule 1,000 mg PO DAILY hydrocortisone valerate 0.2 % cream 1 applic topical DAILY acetaminophen 500 mg tablet 1,000 mg PO QAM docusate sodium 100 mg capsule 300 mg PO BID hydrochlorothiazide 25 mg tablet 25 mg PO DAILY coenzyme Q10 100 mg capsule 100 mg PO DAILY Calcium 600 + D(3) 600 mg-5 mcg (200 unit) capsule 1 cap PO QAM Adult 50 Plus Probiotic 4 billion cell capsule 4,000 mmu cells PO BID Rx Instructions: administer with a meal guaifenesin [Mucinex] 600 mg tablet extended release 12hr 600 mg PO BID fluticasone furoate-vilanterol [Breo Ellipta] 200-25 mcg/dose blister with device 1 inh inhalation DAILY sildenafil (pulm.hypertension) 20 mg tablet 60 mg PO TID Patient Comments: TAKE 3 TABLETS BY MOUTH THREE TIMES DAILY spironolactone [Aldactone] 50 mg tablet 50 mg PO DAILY Qty: 90 2RF czeyfcur-qai-FA-lycopen-lutein 1 EACH tablet 1 ea PO DAILY Patient Comments: MULTIVITAMIN levothyroxine 112 mcg tablet 112 mcg PO QHS Patient Comments: Takes 2 tabs on Sundays trazodone 50 MG tablet 100 mg PO QHS albuterol sulfate 90 mcg/actuation HFA aerosol inhaler 2 puff inhalation 4X/DAY PRN (Reason: COPD) Patient Comments: LUNGS potassium chloride 20 mEq tablet,ER particles/crystals 40 meq PO BIDCM cetirizine 10 MG capsule 10 mg PO DAILY Primary Care Provider: Rico,Meli Referrals: Fast,Meli, DO [Primary Care Provider] - Disposition Disposition: Home, Self Care
[2023-01-07] MEDS: MethylPREDNISolone 125 MG/2 ML Vial IV (13:31)
[2023-01-07 13:33] LABS: Blood Gas Specimen Type VEN; O2 Delivery Device NRB; SITE Not entered; VBG BASE EXCESS 4 mmol/L (-1.0-3.5); VBG Bicarbonate 30 mmol/L (22-26); VBG PO2 39 mmHg (25-40); VBG SO2 71 % (50-70); VBG TCO2 31 mmol/L (23-33); VBG pCO2 50.5 mmHg (41-51); VBG pH 7.38 (7.32-7.42)
[2023-01-07] MEDS: Albuterol 2.5 MG/3 ML VIAL.NEB. INHALATION ×4 (13:37→19:45)
[2023-01-07 13:49] LABS: Absolute Lymphocyte Count 1.77 X10^3/uL (0.83-4.51); Absolute Neutrophil Count 8.5 X10^3/uL (2.0-7.7); Basophil# 0.07 X10^3/uL; Basophil% 0.6 % (0-1); Eosinophil# 0.42 X10^3/uL; Eosinophils% 3.5 % (0-5); Hemoglobin 11.9 g/dL (12.0-15.0); Lymphocyte # 1.77 X10^3/ul (0.83-4.51); Lymphocyte % 14.8 % (19-41); Mean Corp Hgb Conc 30.5 g/dL (32-36); Mean Corpuscular Hgb 28.6 pg (27.0-32.0); Mean Corpuscular Volume 93.8 fL (81-99); Mean Platelet Vol. 11.5 fl (6.2-12.0); Monocyte# 1.14 X10^3/uL; Monocyte% 9.6 % (0-10); NRBC Flagged by Analyzer 0 % (0-5); Neutrophil # 8.49 X10^3/uL (2.7-7.7); Neutrophil % 71.2 % (47-70); Platelet Count 251 K/mm3 (150-450); RBC Distribution Width CV 18.2 % (11.6-14.6); RBC Distribution Width SD 62.7 fl (35.1-43.9); Red Blood Count 4.16 M/mm3 (4.2-5.4); White Blood Count 11.9 K/mm3 (4.4-11.0)
--- NOTE | 2023-01-07 13:55 | RAD_ITS ---
EXAM: XR CHEST, 1 VIEW CLINICAL INDICATION: sob TECHNIQUE: Frontal view of the chest. COMPARISON: CT chest 08/30/2022 FINDINGS: LUNGS AND PLEURAL SPACES: Blunting of the right costophrenic sulcus consistent with scarring. Right upper lobe pleural-parenchymal density consistent with postinflammatory change. Areas of hyperlucency within the right upper lobe consistent with emphysema. No pneumothorax. No effusion. HEART: Borderline cardiomegaly. MEDIASTINUM: No mediastinal or hilar mass. BONES/JOINTS: No acute abnormality. TUBES, LINES AND DEVICES: Transcatheter aortic valve replacement (TAVR) noted. RAD/Chest 1 View (Portable) IMPRESSION: Stable borderline cardiomegaly. Right-sided pleural-parenchymal densities consistent with postinflammatory change. Electronically Signed: Sarkis Hutton MD at 14:25 EDT ,
[2023-01-07] MEDS: Ceftriaxone 1 GM/50 ML BAG IV (13:59)
[2023-01-07 14:00] LABS: Anion Gap 5 (5-15); BUN 16 mg/dL (7-18); BUN/Creat Ratio 17.1 RATIO (10-20); Calcium,Total 9.3 mg/dL (8.5-10.1); Chloride 103 mmol/L (98-107); Creatinine, Serum 0.93 mg/dL (0.55-1.02); EST Glomerular Filtration Rate 60 mL/min (>60); Est Glom Filt Rate - Afr Amer 73 mL/min (>60); Estimated Creatinine Clearance 30.03 ml/min; Glucose 113 mg/dL (74-106); Potassium 3.9 mmol/L (3.5-5.1); Sodium Level 138 mmol/L (136-145); Troponin-I HS 45 pg/mL (3.0-54.0)
[2023-01-07 14:01] LABS: Lactic Acid 2.6 mmol/L (0.4-1.9)
[2023-01-07 14:22] LABS: BNP,B-Type NATRIURETIC PEPTIDE 248.1 pg/mL (0-100)
[2023-01-07] MEDS: Azithromycin 500 MG in Dextrose 5%-Water (250mL Bag) 250 ML 250 MG IV (14:41)
--- NOTE | 2023-01-07 14:49 | PCM.HP.STD ---
HPI - General General Date of Admission: 01/07/23 Date of Service: 01/07/23 Chief Complaint: Dyspnea. 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 In the ED RT suctioned and noted purulent mucus. Work-up in the ED included T97.9, heart rate 87, BP 136/69, respiratory rate 26, 92% initially on 6 L however desaturated to 84% on 6 L previously noted 10/04/2022 to be on 4 L nasal cannula with most recent vital BP 140/73, respiratory rate 27, heart rate 93, 95% on 6 L nasal cannula, CBC with WBC 11.9, hemoglobin 11.9, MCV 93.8, platelet 251 with left shift, VBG with bicarb 30, PO2 39, oxygen saturation 70% on a nonrebreather, BMP with glucose 113 otherwise not marked appearing, lactic acid mildly elevated 2.6, troponin 45, BNP 248.1, chest x-ray with borderline cardiomegaly with a right-sided pleural-parenchymal densities consistent with postinflammatory change, EKG with sinus rhythm with nonspecific ST changes, QTc 472 with no evidence of acute ischemia, blood culture x2 pending per ED, rapid SARS COVID antigen negative. In the ED patient ministered azithromycin 500 mg IV x1, Rocephin 1 g IV x1 as well as Solu-Medrol 125 mg IV x1. [facility] Medical History Atherosclerosis of coronary artery without angina pectoris COPD (chronic obstructive pulmonary disease) CRF (chronic renal failure) Dissecting aneurysm of thoracic aorta, [place] type A (02/28/22) Dyspnea Essential hypertension GERD (gastroesophageal reflux disease) History of lung cancer Hyperlipidemia Hypothyroidism Macular degeneration Non-rheumatic aortic stenosis Occlusion and stenosis of bilateral carotid arteries Osteoarthritis Personal history of transient ischemic attack (TIA), and cerebral infarction without residual deficits Pneumonia PVD (peripheral vascular disease) Seasonal allergies 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 Home Medications [id number]-buufw acid 0.4 mg-lycopene 300 mcg-lutein 250 mcg tablet 1 ea PO DAILY SUPPLEMENT 07/11/14 [History Last Taken Unknown] aspirin 81 mg tablet,delayed release (Adult Aspirin Regimen) 81 mg PO DAILY HEART HEALTH 06/26/18 [History Last Taken 02/28/22] celecoxib 200 mg capsule (Celebrex) 200 mg PO DAILY PAIN 06/26/18 [History Last Taken Unknown] omeprazole 20 mg capsule,delayed release 20 mg PO DAILY GERD 06/26/18 [History Last Taken 09/25/18 04:30] umeclidinium 62.5 mcg/actuation blister powder for inhalation (Incruse Ellipta) 1 inh inhalation DAILY COPD 06/26/18 [History Last Taken Unknown] vit C 250 mg-vit E 90 mg-zinc 40 mg-copper 1 [id number]-[id number] capsule (PreserVision AREDS-2) 1 tab PO BID SUPPLEMENT 06/26/18 [History Last Taken Unknown] levothyroxine 112 mcg tablet 112 mcg PO QHS THYROID 06/27/18 [History Last Taken 02/28/22] trazodone 50 mg tablet 100 mg PO QHS SLEEP 09/21/18 [History Last Taken Unknown] diltiazem HCl 360 mg capsule,24 hr,extended release 360 mg PO DAILY 01/10/19 [History Last Taken 02/28/22] cetirizine 10 mg capsule 10 mg PO DAILY allergies 09/20/19 [History Last Taken Unknown] albuterol sulfate 90 mcg/actuation aerosol inhaler 2 puff inhalation 4X/DAY PRN COPD 12/26/19 [History Last Taken Unknown] cholecalciferol (vitamin D3) 125 mcg (5,000 unit) capsule 125 mcg PO DAILY 08/24/20 [History Last Taken Unknown] potassium chloride 20 mEq tablet,extended release(part/cryst) 40 meq PO BIDCM POTASSIUM 08/24/20 [History Last Taken Unknown] valsartan 80 mg tablet 80 mg PO DAILY bp #135 tabs 08/24/20 [History Last Taken 02/28/22] prednisone 10 mg tablet 10 mg PO DAILY PRN Allergy Symptoms 02/10/22 [History Last Taken Unknown] ticagrelor 90 mg tablet (Brilinta) 90 mg PO BID 03/08/22 [History Last Taken Unknown] acetaminophen 500 mg tablet 1,000 mg PO QAM 06/07/22 [History Last Taken Unknown] calcium carbonate 600 mg-vitamin D3 5 mcg (200 unit) capsule (Calcium 600 + D(3)) 1 cap PO QAM 06/07/22 [History Last Taken Unknown] coenzyme Q10 100 mg capsule 100 mg PO DAILY 06/07/22 [History Last Taken Unknown] docusate sodium 100 mg capsule 300 mg PO BID 06/07/22 [History Last Taken Unknown] fluticasone furoate 200 mcg-vilanterol 25 mcg/dose inhalation powder (Breo Ellipta) 1 inh inhalation DAILY 06/07/22 [History Last Taken Unknown] guaifenesin 600 mg tablet, extended release 12 hr (Mucinex) 600 mg PO BID 06/07/22 [History Last Taken Unknown] hydrochlorothiazide 25 mg tablet 25 mg PO DAILY 06/07/22 [History Last Taken Unknown] hydrocortisone valerate 0.2 % topical cream 1 applic topical DAILY 06/07/22 [History Last Taken Unknown] lactobacillus combination no.9 4 billion cell capsule (Adult 50 Plus Probiotic) 4,000 mmu cells PO BID 06/07/22 [History Last Taken Unknown] omega-3 fatty acids 1,000 mg capsule 1,000 mg PO DAILY 06/07/22 [History Last Taken Unknown] rosuvastatin 20 mg tablet 20 mg PO DAILY 06/07/22 [History Last Taken Unknown] sildenafil (pulm.hypertension) 20 mg tablet 60 mg PO TID 10/04/22 [History Last Taken Unknown] spironolactone 50 mg tablet (Aldactone) 50 mg PO DAILY #90 tabs 10/04/22 [Rx Last Taken Unknown] Allergy/AdvReac Type Severity Reaction Status Date / Time morphine Allergy UNCONTROLLED Verified 10/04/22 15:21 BEHAVIOR DANISH Inhibitors AdvReac Intermediate cough Verified 10/04/22 15:21 ipratropium AdvReac Intermediate PASSING OUT Verified 10/04/22 15:21 Family History Mother Liver failure Brother Myasthenia gravis Pacemaker Sister CAD (coronary artery disease) CABG x 4 CVA (cerebral vascular accident) Father Colon cancer Surgical History History of cataract extraction History of cholecystectomy (2009) History of colectomy (09/2018) History of colonoscopy (08/09/18) History of coronary artery stent placement (02/28/22) History of lobectomy of lung History of right and left heart catheterization (02/08/19) History of right heart catheterization (RHC) (07/22/22) History of tonsillectomy History of total left knee replacement History of transcatheter aortic valve replacement (TAVR) (04/04/22) History of tubal ligation lung cancer 2012 rll lobectemy Status post total right knee replacement Social History household members: none Smoking Status: Former smoker how long ago did patient quit smokin years ago alcohol intake: current alcohol intake frequency: holidays/special occasions only Alcohol type: wine caffeine: Yes Type: coffee Number of servings: 2 ROS ROS Narrative Admission Review of Systems: CONSTITUTIONAL: No weight loss, fever, chills, + weakness or fatigue. HEENT: Eyes: No visual loss, blurred vision, double vision or yellow sclerae. Ears, Nose, Throat: No hearing loss, sneezing, congestion, runny nose or sore throat. SKIN: No rash or itching, lesions, wounds. CARDIOVASCULAR: + s/p TAVR with chronic RUE decreased BPs she notes. No chest pain, chest pressure or chest discomfort, palpitations, edema, orthopnea, syncopal events. RESPIRATORY: + shortness of breath, cough with mildly productive sputum, wheezing. No hemoptysis. GASTROINTESTINAL: No anorexia, nausea, vomiting or diarrhea, abdominal pain, melena, BRBPR. GENITOURINARY: No dysuria, frequency, urgency or retention. NEUROLOGICAL: No headache, dizziness, syncope, paralysis, ataxia, numbness or tingling in the extremities, focal weakness, change in bowel or bladder control, seizure. MUSCULOSKELETAL: + muscle, back pain, joint pain or stiffness. HEMATOLOGIC: + anemia, easy bleeding or bruising. LYMPHATICS: No enlarged nodes. No history of splenectomy. PSYCHIATRIC: No history of depression or anxiety. ENDOCRINOLOGIC: No reports of sweating, cold or heat intolerance. No polyuria or polydipsia. ALLERGIES: + Hx rhinitis. Vital Signs Vital Signs Vital Signs: 01/07/23 13:09 01/07/23 13:16 01/07/23 13:44 Temperature 97.9 F Temperature Source Temporal Pulse Rate 87 91 Respiratory Rate 26 H 27 H Respiratory Effort Short of Breath Accessory Muscle Use Respiratory Pattern Tachypnea Blood Pressure 136/69 H 130/108 H Blood Pressure Mean 91 115 Pulse Ox 92 84 Oxygen Delivery Method Nasal Cannula Nasal Cannula Nasal Cannula Oxygen Flow Rate (L/min) 6 6 6 01/07/23 13:44 01/07/23 13:37 01/07/23 14:13 Temperature Temperature Source Pulse Rate 90 93 Respiratory Rate 30 H 27 H Respiratory Effort Respiratory Pattern Blood Pressure 148/73 H Blood Pressure Mean 98 Pulse Ox 95 Oxygen Delivery Method Nasal Cannula Nasal Cannula Oxygen Flow Rate (L/min) 6 6 Weight Weight: 116 lb 9.992 oz Body Mass Index (BMI) 22.7 Physical Exam Narrative Physical Examination: General: Awake, alert, oriented x 3 and cooperative, seated upright in the ED bed, fatigued appearing, still increased respiratory rate but no distress, mild accessory muscle usage Skin: Normal color, normal turgor, no icterus, no cyanosis except for occasional staged ecchymoses. HEENT: AT/NC, EOMI, PERRLA, mildly dry MM, no carotid bruits or JVD noted. Lungs: Diminished, greater bases, rhonchorous, left base, right notably decreased more so than left secondary to history of right lower lobe lobectomy, occasional expiratory wheeze, no rales. Heart: Mildly tachycardic with regular rhythm; no gallop, rub audible, + SM s/p TAVR. Abdomen: Soft, NTTP, ND, normal BS, no HSM. Extremities: No cyanosis, clubbing, or edema. Neurological: Patient awake, alert, oriented as noted, cognitive function intact; pupils equally reactive to light and accommodation, cranial nerves II-XII grossly normal, moving all 4 extremities, no focal deficits, strength severely globally decreased to acute presentation. Psychiatric: Affect appears flat, fatigued, respiratory status improving she notes, no acute evidence of depressive or anxiety feelings. Results Lab / Micro Data 01/07/23 13:25 01/07/23 13:25 Labs: Laboratory Results - last 24 hr 01/07/23 13:25: WBC 11.9 H, RBC 4.16 L, Hgb 11.9 L, Hct 39.0, MCV 93.8, MCH 28.6, MCHC 30.5 L, RDW Std Deviation 62.7 H, RDW Coeff of Fernanda 18.2 H, Plt Count 251, MPV 11.5, Immature Gran % (Auto) 0.300, Neut % (Auto) 71.2 H, Lymph % (Auto) 14.8 L, [place] % (Auto) 9.6, Eos % (Auto) 3.5, Baso % (Auto) 0.6, Absolute Neuts (auto) 8.5 H, Absolute Lymphs (auto) 1.77, Nucleated RBC % 0, Sodium 138, Potassium 3.9, Chloride 103, Carbon Dioxide 30.0, Anion Gap 5, BUN 16, Creatinine 0.93, Estim Creat Clear Calc 30.03, Est GFR (MDRD) Af Amer 73, Est GFR (MDRD) Non-Af 60, BUN/Creatinine Ratio 17.1, Glucose 113 H, Lactic Acid 2.6 H*, Calcium 9.3, Troponin I High Sens 45, B-Natriuretic Peptide 248.1 H Micro: Microbiology 01/07/23 13:25 Nasal Secretion SARS-CoV-2 & FLU Antigen (Rapid) - Final ABG Data ABG results: ABG 01/07/23 13:30 Specimen Type [place] Sample Site Not entered VBG pH 7.38 VBG pO2 39 VBG HCO3 30 H VBG Total CO2 31 VBG O2 Sat (Calc) 71 H VBG Base Excess 4 H POC Mix VBG pCO2 Pt Tmp 50.5 O2 Delivery Device NRB Radiology Impression Chest X-Ray 01/07/23 13:55 IMPRESSION: Stable borderline cardiomegaly. Right-sided pleural-parenchymal densities consistent with postinflammatory change. 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 #1. Acute Hypoxia on Chronic Hypoxic Respiratory Failure secondary to Acute on Chronic COPD Exacerbation with lactic acidosis suspected secondary to hypoxemia, Possible Pneumonia: Will admit to PCU in case of BIPAP needs as high suspicion may require, maintain on oxygen with wean as tolerated to home oxygen supplementation, continue ATC duonebs, PRN albuterol, IV methylprednisolone, IV Rocephin and azithromycin, vest usage, HOB, IS parameters, will obtain sputum Cx, respiratory viral panel, procalcitonin, given reported purulent sputum suctioned per RT will continue IV abx Rocephin and Azithromycin and may alter pending sputum Cx, urine antigens also requested, MR staph aureus DNA PCR also requested. #2. Valvular heart disease: s/p TAVR procedure with an Renteria KAROLINA bioprosthetic valve, most recent echo noted 05/19/2022 with normal LV size, normal wall thickness, normal LV systolic function, EF 60%, normal wall motion, RV moderately dilated, mildly reduced systolic function, Edward KAROLINA 3 ultra bioprosthetic AV with size 23 mm, AV mean gradient 60 mmHg, mean gradient similar to prior echo, moderately severe tricuspid valve regurgitation, severely elevated RVSP 74 mmHg, moderately dilated LA, severely dilated RA. #3. CAD with history dissecting aortic aneurysm: Patient with history of cardiac catheterization noting minimal disease in the left anterior descending artery and circumflex artery and a high-grade right coronary artery lesion with attempts for PCI however patient unfortunately had aortic root dissection which propagated up with ascending aorta with eventually ARIAN placement to the mid and proximal right coronary artery with a covered stent transferred to [facility] [place] at that time. We will continue aspirin, Brilinta, valsartan, not on beta-leonardo therapy but currently noted to be on diltiazem. #4. Allergic rhinitis: We will continue patient home cetirizine and fluticasone home regimen. #5. Carotid disease: We will continue aspirin, Brilinta, statin therapy as well as hypertensive regimen. #6. Pulmonary HTN: Noted on intervention with TAVR with right heart catheterization which demonstrated elevated pressures initiated on sildenafil and following with pulmonary medicine at [facility]. #7. History of lung cancer, unclear type: Status post right lower lobe lobectomy, considered in remission. #8. Normocytic anemia, chronic although recently has been normalized: Admission hemoglobin 11.9, MCV 93.8, baseline more recently has been 12-14, most recent 10/14/2022 hemoglobin 13.1 however in 2016 patient did have issues with chronic anemia at that time, will continue to trend CBC. #9. Hypertension: Continue home regimen including diltiazem, valsartan, hydrochlorothiazide, spironolactone, PRN hydralazine. #10. Hypothyroidism: We will continue patient home levothyroxine regimen. #11. Hyperlipidemia: We will continue patient on statin therapy. #12. History TIA: We will continue aspirin, Brilinta, statin, hypertensive regimen as noted. #13. Former tobacco use: Encourage continued tobacco cessation. #14. GERD: We will continue patient on PPI. #15. DVT prophylaxis: Renally dosed Lovenox. #16. CODE status: Patient JERRELL is her son who is present and living will is currently in place. Discussed CODE status at length including difference between FULL code, DNR-CCA and DNR-CC status. Following discussions about the differences in these status, requested DNR-CCA, no intubation status but amenable to BIPAP. Advanced Care Planning Face to Face Time: 16 minutes. Charges/Coding Visit Charges Inpatient E&M: 59828 Init Hosp L3 Procedures Hospitalists Procedures: 87932 Advncd Care Plan 30 Min
--- NOTE | 2023-01-07 15:02 | NURSING ---
PCU WHITE HYPOXIA, COPD
[2023-01-07] MEDS: 0.9% Normal Saline (1000mL) 1,000 ML 999 ML IV (15:58)
--- NOTE | 2023-01-07 15:59 | ED.RN ---
This nurse was at break and on return noted this patient to have a MAP <65, several checks were noted to have low blood pressures since 1500. Spoke w/Dr. Goodson regarding and verbal order for 1 L NS to be given and was initiated.
--- NOTE | 2023-01-07 16:36 | ED.RN ---
REPOSITIONING OF BLOOD PRESSURE CUFF HAS RESULTED IN HIGHER THAN INITIALLY REPORTED VIA MONITOR; MANUAL READING RESULTED IN HIGHER BP WELL.
[2023-01-07] MEDS: 0.9% Normal Saline (1000mL) 1,000 ML 100 ML IV (17:16)
[2023-01-07 17:35] LABS: Reflex Lactate? Y
[2023-01-07] MEDS: Menthol/Lanolin/Calamine/Znox 113 GM Tube 1 APPLIC TOPICAL (18:06)
[2023-01-07] MEDS: Potassium Chloride Oral Tablet 20 MEQ 40 MEQ PO (18:07)
[2023-01-07 18:29] LABS: Lactic Acid 1.5 mmol/L (0.4-1.9)
[2023-01-07 18:40] LABS: Procalcitonin 0.06 ng/mL (0.00-0.09)
[2023-01-07 19:01] LABS: M R Staph aureus DNA By PCR Negative (Negative); Probe Check PASS; Specimen Processing Control PASS
[2023-01-07] MEDS: Budesonide Respules 0.5 MG/2 ML AMPUL.NEB. INHALATION (19:45)
[2023-01-07] MEDS: TREPROSTINIL 64 MCG CART.INHAL INHALATION (20:11)
--- NOTE | 2023-01-07 20:51 | CPS ---
AIRVO started 40 L 50% mostly for the humidity. Low settings high humidity. Pt has been having frequent nose bleeds, even at home.
[2023-01-07] MEDS: guaiFENesin 600 MG Tablet PO (21:13)
[2023-01-07] MEDS: TICAGRELOR 90 MG TABLET PO (21:13)
[2023-01-07] MEDS: Levothyroxine 112 MCG Tablet PO (21:13)
[2023-01-07] MEDS: Docusate Sodium 100 MG Capsule 200 MG PO (21:14)
[2023-01-08] VITALS (7 sets, daily range): BP systolic 110–132; BP diastolic 61–82; PULSE 72–89; RESP 18–26; TEMP 36.6–36.9; O2SAT 92–98; BMI 26.4
[2023-01-08 05:23] LABS: Absolute Lymphocyte Count 0.26 X10^3/uL (0.83-4.51); Absolute Neutrophil Count 4.2 X10^3/uL (2.0-7.7); Basophil# 0.01 X10^3/uL; Basophil% 0.2 % (0-1); Hematocrit 31.4 % (37-47); Lymphocyte # 0.26 X10^3/ul (0.83-4.51); Lymphocyte % 5.7 % (19-41); Mean Corp Hgb Conc 31.8 g/dL (32-36); Mean Corpuscular Hgb 29.5 pg (27.0-32.0); Mean Corpuscular Volume 92.6 fL (81-99); Mean Platelet Vol. 11.1 fl (6.2-12.0); Monocyte# 0.07 X10^3/uL; Monocyte% 1.5 % (0-10); NRBC Flagged by Analyzer 0 % (0-5); Neutrophil # 4.18 X10^3/uL (2.7-7.7); Neutrophil % 92.2 % (47-70); POSITIVE DIFFERENTIAL YES; Platelet Count 173 K/mm3 (150-450); RBC Distribution Width CV 18.2 % (11.6-14.6); RBC Distribution Width SD 61.9 fl (35.1-43.9); Red Blood Count 3.39 M/mm3 (4.2-5.4); White Blood Count 4.5 K/mm3 (4.4-11.0)
[2023-01-08 05:25] LABS: Differential Indicated SCAN CRITERIA MET
[2023-01-08 06:05] LABS: ALB/GLOB Ratio 0.8 RATIO (0.9-2.4); AST(SGOT) 34 U/L (15-37); Alanine Aminotransfer ALT/SGPT 33 U/L (13-56); Albumin, Serum 2.8 g/dL (3.2-5.0); Alkaline Phosphatase 78 U/L (45-117); Anion Gap 6 (5-15); BUN 13 mg/dL (7-18); BUN/Creat Ratio 17.8 RATIO (10-20); Calcium,Total 8.4 mg/dL (8.5-10.1); Chloride 105 mmol/L (98-107); Creatinine, Serum 0.73 mg/dL (0.55-1.02); EST Glomerular Filtration Rate 80 mL/min (>60); Est Glom Filt Rate - Afr Amer 97 mL/min (>60); Estimated Creatinine Clearance 27.93 ml/min; Globulin 3.4 g/dL (2.2-4.2); Glucose 131 mg/dL (74-106); Potassium 4.1 mmol/L (3.5-5.1); Protein, Total 6.2 g/dL (6.4-8.2); Sodium Level 135 mmol/L (136-145)
[2023-01-08] MEDS: Budesonide Respules 0.5 MG/2 ML AMPUL.NEB. INHALATION (07:02)
[2023-01-08] MEDS: Albuterol 2.5 MG/3 ML VIAL.NEB. INHALATION (07:02)
[2023-01-08 07:11] LABS: Differential Comment SCANNED
[2023-01-08 07:12] LABS: Hypochromasia 1+
[2023-01-08] MEDS: TREPROSTINIL 64 MCG CART.INHAL INHALATION ×4 (08:02→21:58)
[2023-01-08] MEDS: Menthol/Lanolin/Calamine/Znox 113 GM Tube 1 APPLIC TOPICAL ×3 (10:29→18:10)
[2023-01-08] MEDS: Docusate Sodium 100 MG Capsule PO (10:33)
[2023-01-08] MEDS: Aspirin E.C. 81 MG Tablet PO (10:35)
[2023-01-08] MEDS: Enoxaparin 30 MG/0.3 ML Syringe SC (10:35)
[2023-01-08] MEDS: Celecoxib 200 MG Capsule PO (10:35)
[2023-01-08] MEDS: Loratadine 10 MG Tablet PO (10:35)
[2023-01-08] MEDS: dilTIAZem CD 180 MG Capsule 360 MG PO (10:36)
[2023-01-08] MEDS: TICAGRELOR 90 MG TABLET PO ×2 (10:36→21:57)
[2023-01-08] MEDS: Potassium Chloride Oral Tablet 20 MEQ 40 MEQ PO ×2 (10:36→18:11)
[2023-01-08] MEDS: Losartan Potassium 25 MG Tablet PO (10:37)
[2023-01-08] MEDS: Furosemide 40 MG Tablet PO (10:37)
[2023-01-08] MEDS: Pantoprazole Sodium 20 MG Tablet PO (10:38)
[2023-01-08] MEDS: Atorvastatin Calcium 40 MG Tablet PO (10:38)
[2023-01-08] MEDS: guaiFENesin 600 MG Tablet PO ×2 (10:38→21:57)
[2023-01-08] MEDS: Azithromycin 500 MG in Dextrose 5%-Water (250mL Bag) 250 ML 250 MG IV (10:46)
[2023-01-08] MEDS: Acetaminophen 325 MG Tablet 650 MG PO ×2 (11:00→22:17)
[2023-01-08] MEDS: 0.9% Saline Lock 10 ML Syringe IV ×2 (11:00→14:23)
[2023-01-08] MEDS: Ceftriaxone 1 GM/50 ML BAG IV (11:57)
[2023-01-08] MEDS: FLUTICASONE/VILANTEROL 1 EACH BLST.W.DEV INHALATION (14:15)
[2023-01-08] MEDS: ALBUTEROL SULFATE 8.5 GM HFA.AER.AD 2 GM INHALATION ×3 (14:16→21:57)
[2023-01-08] MEDS: SILDENAFIL CITRATE 20 MG TABLET 60 MG PO ×3 (14:21→21:59)
--- NOTE | 2023-01-08 14:59 | PN_ITS ---
Subjective Subjective Patient seen and examined. Her son and daughter were by her bedside. She had no active complaints and said her breathing had improved. Her cough is improving. Review of systems is otherwise negative. Objective Data Objective Data Vital Signs: Vital Signs Temp Pulse Resp BP Pulse Ox O2 Del Method O2 Flow Rate 98.5 F 86 18 112/67 95 Nasal Cannula 6 01/08/23 10:50 01/08/23 10:50 01/08/23 10:50 01/08/23 10:50 01/08/23 10:50 01/08/23 14:35 01/08/23 14:35 FiO2 40 01/08/23 10:50 Oxygen Flow Rate (L/min) 6 Oxygen Delivery Method Nasal Cannula Weight: 135 lb 9.349 oz Body Mass Index (BMI) 26.4 Intake & Output: Intake and Output for Last 24 Hours 01/06/23 01/07/23 01/08/23 23:59 23:59 23:59 Intake Total 1357.4 / 1477.4 2535 / 2535 Output Total 1450 / 1450 Balance 1357.4 / 1177.4 1085 / 1085 Lab / Micro Data 01/08/23 04:55 01/08/23 04:55 Labs: Laboratory Results - last 24 hr 01/07/23 17:10: MRSA (PCR) Negative 01/07/23 17:57: Lactic Acid 1.5, Procalcitonin 0.06 01/08/23 04:55: WBC 4.5, RBC 3.39 L, Hgb 10.0 L, Hct 31.4 L, MCV 92.6, MCH 29.5, MCHC 31.8 L, RDW Std Deviation 61.9 H, RDW Coeff of Fernanda 18.2 H, Plt Count 173, MPV 11.1, Immature Gran % (Auto) 0.400, Neut % (Auto) 92.2 H, Lymph % (Auto) 5.7 L, [place] % (Auto) 1.5, Eos % (Auto) 0.0, Baso % (Auto) 0.2, Absolute Neuts (auto) 4.2, Absolute Lymphs (auto) 0.26 L, Nucleated RBC % 0, Differential Comment SCANNED, Hypochromasia 1+, Sodium 135 L, Potassium 4.1, Chloride 105, Carbon Dioxide 24.0, Anion Gap 6, BUN 13, Creatinine 0.73, Estim Creat Clear Calc 27.93, Est GFR (MDRD) Af Amer 97, Est GFR (MDRD) Non-Af 80, BUN/Creatinine Ratio 17.8, Glucose 131 H, Calcium 8.4 L, Total Bilirubin 0.50, AST 34, ALT 33, Alkaline Phosphatase 78, Total Protein 6.2 L, Albumin 2.8 L, Globulin 3.4, Albumin/Globulin Ratio 0.8 L Micro: Microbiology 01/07/23 19:30 Mucosa - Nasopharyngeal Respiratory Panel (PCR) - Final 01/07/23 21:25 Urine, Random Streptococcus pneumoniae Antigen (M - Final 01/07/23 21:25 Urine, Random Legionella Antigen - Final 01/07/23 13:25 Nasal Secretion SARS-CoV-2 & FLU Antigen (Rapid) - Final Physical Exam Const alert, oriented x3 and no apparent distress General Appearance: cooperative HEENT normocephalic, head/scalp atraumatic and moist oral mucous membranes Eyes PERRL and EOMs intact bilaterally Neck no lymphadenopathy and supple Lymph Lymphatic: no lymphadenopathy noted and no lymphedema noted Resp Resp Narrative: diminished breath sounds bibasally, no wheezes or crackles. Was on BIPAP but weaned down to 6L of oxygen by nasal canula. She has otherwise remained hemodynamically stable. Cardio regular rate, regular rhythm, S1 normal heart sound and S2 normal heart sound GI normal to inspection, nondistended, normoactive bowel sounds, soft to palpation, non-tender and non-distended Extremity normal capillary refill, no clubbing, cyanosis or edema and no calf tenderness General Extremity: no tenderness to palpation of joints or extremities Skin General Skin Exam: no breakdown Neuro CN's II-XII intact bilaterally, no focal motor deficits, no sensory deficits not ed and deep tendon reflexes 2+ bilaterally Motor Exam: strength 5/5 throughout Psych thought process normal, cooperative and affect normal Appearance: appropriate Assessment & Plan Assessment/Plan (1) Hypoxia: (2) COPD exacerbation: PLAN: Plan #Acute on chronic respiratory failure in the setting of chronic respiratory failure due to COPD exacerbation and pneumonia * on AIrvo this mornign but weaned down to 6L of oxygen. * Titrate oxygen to maintain sats >90% * on IV ceftriaxone and azithromycin * on IV solumedrol * sputum cultures pending. Sputum for Strep and Legionella negative. * breathing treatment with bronchodilators * #Aortic valve disease: s/p TAVR. Stable #CAD: s/p stents. on aspirin.On aspirin, brilinta, valsartan and cardizem. #History of dissecting aortic aneurysm: s/p surgery at [facility]. Stable. Had a stent inserted. #Hyperension; on cardizem, valsarana nd HCTZ as well as spironolactone #Hypothyroidism: on synthroid. #Hyperlipidemia: on statin #History of TIA: on aspirin and statin as well as brilinta. GERd: on PPI DVT prophylaxis: on lovenox Charges/Coding Visit Charges Inpatient E&M: 71849 Subs Hosp L3
[2023-01-08] MEDS: Flu Vacc QS2023-24(65YR UP)/PF 240 MCG/0.7 ML Syringe IM (18:12)
[2023-01-08] MEDS: traZODone 50 MG Tablet 75 MG PO (21:57)
[2023-01-08] MEDS: Multivitamin (Healthy Eyes) Capsule 1 CAP PO (21:57)
[2023-01-08] MEDS: Levothyroxine 112 MCG Tablet PO (21:57)
[2023-01-08] MEDS: Docusate Sodium 100 MG Capsule 200 MG PO (21:57)
[2023-01-09] VITALS (7 sets, daily range): BP systolic 97–141; BP diastolic 51–85; PULSE 59–78; RESP 16–24; TEMP 36.6–36.8; O2SAT 93–100; BMI 25.7
[2023-01-09] MEDS: SILDENAFIL CITRATE 20 MG TABLET 60 MG PO ×3 (06:19→21:55)
[2023-01-09 06:54] LABS: Absolute Lymphocyte Count 0.35 X10^3/uL (0.83-4.51); Absolute Neutrophil Count 12.3 X10^3/uL (2.0-7.7); Basophil# 0.01 X10^3/uL; Basophil% 0.1 % (0-1); Hematocrit 31.9 % (37-47); Hemoglobin 9.7 g/dL (12.0-15.0); Lymphocyte # 0.35 X10^3/ul (0.83-4.51); Lymphocyte % 2.7 % (19-41); Mean Corp Hgb Conc 30.4 g/dL (32-36); Mean Corpuscular Hgb 28.7 pg (27.0-32.0); Mean Corpuscular Volume 94.4 fL (81-99); Mean Platelet Vol. 11.7 fl (6.2-12.0); Monocyte# 0.32 X10^3/uL; Monocyte% 2.5 % (0-10); NRBC Flagged by Analyzer 0 % (0-5); Neutrophil # 12.25 X10^3/uL (2.7-7.7); Neutrophil % 94.2 % (47-70); POSITIVE DIFFERENTIAL YES; Platelet Count 182 K/mm3 (150-450); RBC Distribution Width CV 18.5 % (11.6-14.6); RBC Distribution Width SD 63.3 fl (35.1-43.9); Red Blood Count 3.38 M/mm3 (4.2-5.4)
[2023-01-09 06:58] LABS: Differential Indicated SCAN CRITERIA MET
[2023-01-09 07:11] LABS: Anion Gap 3 (5-15); BUN 19 mg/dL (7-18); BUN/Creat Ratio 25.2 RATIO (10-20); Calcium,Total 8.7 mg/dL (8.5-10.1); Chloride 109 mmol/L (98-107); Creatinine, Serum 0.75 mg/dL (0.55-1.02); EST Glomerular Filtration Rate 77 mL/min (>60); Est Glom Filt Rate - Afr Amer 93 mL/min (>60); Estimated Creatinine Clearance 27.93 ml/min; Glucose 118 mg/dL (74-106); Potassium 4.9 mmol/L (3.5-5.1); Sodium Level 139 mmol/L (136-145)
[2023-01-09 07:20] LABS: Differential Comment SCANNED
[2023-01-09] MEDS: FLUTICASONE/VILANTEROL 1 EACH BLST.W.DEV INHALATION (09:30)
[2023-01-09] MEDS: ALBUTEROL SULFATE 8.5 GM HFA.AER.AD 2 GM INHALATION ×4 (09:33→23:02)
[2023-01-09] MEDS: TREPROSTINIL 64 MCG CART.INHAL INHALATION ×4 (09:36→23:03)
[2023-01-09] MEDS: Potassium Chloride Oral Tablet 20 MEQ 40 MEQ PO ×2 (09:37→16:57)
[2023-01-09] MEDS: Aspirin E.C. 81 MG Tablet PO (09:37)
[2023-01-09] MEDS: Docusate Sodium 100 MG Capsule PO (09:37)
[2023-01-09] MEDS: Furosemide 40 MG Tablet PO (09:37)
[2023-01-09] MEDS: TICAGRELOR 90 MG TABLET PO ×2 (09:38→21:55)
[2023-01-09] MEDS: Loratadine 10 MG Tablet PO (09:38)
[2023-01-09] MEDS: Calcium Carb/Vitamin D 1 TABLET Tablet PO (09:38)
[2023-01-09] MEDS: Atorvastatin Calcium 40 MG Tablet PO (09:39)
[2023-01-09] MEDS: Losartan Potassium 25 MG Tablet PO (09:39)
[2023-01-09] MEDS: dilTIAZem CD 180 MG Capsule 360 MG PO (09:39)
[2023-01-09] MEDS: Omega-3 Acid Ethyl Esters 1 GM Capsule PO (09:39)
[2023-01-09] MEDS: guaiFENesin 600 MG Tablet PO ×2 (09:39→21:55)
[2023-01-09] MEDS: Cholecalciferol (Vit D3) 125 MCG CAPSULE (5,000 UNITS) PO (09:39)
[2023-01-09] MEDS: Pantoprazole Sodium 20 MG Tablet PO (09:39)
[2023-01-09] MEDS: Multivitamin (Healthy Eyes) Capsule 1 CAP PO ×2 (09:40→21:55)
[2023-01-09] MEDS: Celecoxib 200 MG Capsule PO (09:40)
[2023-01-09] MEDS: Enoxaparin 30 MG/0.3 ML Syringe SC (09:40)
--- NOTE | 2023-01-09 09:54 | PN.HOSP_ITS ---
Reason for Visit Reason for Visit: Diagnoses Chronic obstructive pulmonary disease with (acute) exacerbation (01/07/23) Hypoxemia (01/07/23) Subjective Subjective For better than yesterday, remains on Airvo but did tolerate nasal cannula for period of time yesterday evening, still coughing to some extent. Still reports shortness of breath is much worse on exertion Objective Data Objective Data Vital Signs: Vital Signs Temp Pulse Resp BP Pulse Ox O2 Del Method O2 Flow Rate 97.8 F 71 16 141/78 H 95 Airvo 40 01/09/23 09:20 01/09/23 09:20 01/09/23 09:20 01/09/23 09:20 01/09/23 09:20 01/09/23 09:20 01/09/23 09:20 FiO2 46 01/09/23 09:20 Oxygen Flow Rate (L/min) 40 Oxygen Delivery Method Airvo Weight: 59.8 kg Body Mass Index (BMI) 25.7 Intake & Output: Intake and Output for Last 24 Hours 01/07/23 01/08/23 01/09/23 23:59 23:59 23:59 Intake Total 1357.4 / 1477.4 3135 / 3495 360 / 360 Output Total 2500 / 2700 200 / 200 Balance 1357.4 / 1177.4 635 / 795 160 / 160 Lab / Micro Data 01/09/23 06:05 01/09/23 06:05 Labs: Laboratory Results - last 24 hr 01/09/23 06:05: WBC 13.0 H, RBC 3.38 L, Hgb 9.7 L, Hct 31.9 L, MCV 94.4, MCH 28.7, MCHC 30.4 L, RDW Std Deviation 63.3 H, RDW Coeff of Fernanda 18.5 H, Plt Count 182, MPV 11.7, Immature Gran % (Auto) 0.500, Neut % (Auto) 94.2 H, Lymph % (Auto) 2.7 L, [place] % (Auto) 2.5, Eos % (Auto) 0.0, Baso % (Auto) 0.1, Absolute Neuts (auto) 12.3 H, Absolute Lymphs (auto) 0.35 L, Nucleated RBC % 0, Differential Comment SCANNED, Sodium 139, Potassium 4.9, Chloride 109 H, Carbon Dioxide 27.0, Anion Gap 3 L, BUN 19 H, Creatinine 0.75, Estim Creat Clear Calc 27.93, Est GFR (MDRD) Af Amer 93, Est GFR (MDRD) Non-Af 77, BUN/Creatinine Ratio 25.2 H, Glucose 118 H, Calcium 8.7 Micro: Microbiology 01/07/23 20:34 Sputum, Expectorated/Coughed Gram Stain - Final 01/07/23 20:34 Sputum, Expectorated/Coughed Respiratory Culture - Prelimi nary Gram negative venu 01/07/23 19:30 Mucosa - Nasopharyngeal Respiratory Panel (PCR) - Final 01/07/23 21:25 Urine, Random Streptococcus pneumoniae Antigen (M - Final 01/07/23 21:25 Urine, Random Legionella Antigen - Final 01/07/23 13:25 Nasal Secretion SARS-CoV-2 & FLU Antigen (Rapid) - Final Physical Exam Narrative General: Alert, oriented, no apparent distress HEENT: Atraumatic, normocephalic Eyes: Anicteric, normal conjunctiva, extraocular movements grossly intact Neck: Supple Respiratory: Diminished bilaterally, slight increased work of breathing with conversation Cardiovascular: Regular rate GI: Soft, nontender, nondistended Extremities: No edema Musculoskeletal: Moving all extremities Neuro: No overt focal neurological deficits Skin: No rashes appreciated Psych: Cooperative Assessment & Plan Assessment/Plan (1) Hypoxia: (2) COPD exacerbation: PLAN: Plan #Acute on chronic respiratory failure in the setting of chronic respiratory failure due to COPD exacerbation and pneumonia * on AIrvo this mornign but weaned down to 6L of oxygen. * Titrate oxygen to maintain sats >90% * on IV ceftriaxone and azithromycin * on IV solumedrol * sputum cultures pending. Sputum for Strep and Legionella negative. * breathing treatment with bronchodilators -01/09: Patient on steroids and umeclidinium, required resumption of Airvo overnight, now has gram-negative rods growing in sputum, will transition to Zosyn given lack of improvement until sensitivities available. We will reach out to patient's advertising account executive to see if he would like to follow while in-house, presently followed by our pulmonology team, appreciate recommendations #Aortic valve disease: s/p TAVR. Stable #CAD: s/p stents. on aspirin.On aspirin, brilinta, valsartan and cardizem. 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 Stable. Had a stent inserted. #Hyperension; on cardizem, losartan, HCTZ as well as spironolactone #Hypothyroidism: on synthroid. #Hyperlipidemia: on statin #History of TIA: on aspirin and statin as well as brilinta. GERd: on PPI DVT prophylaxis: on lovenox Time spent in the patient's overall evaluation,decision-making process, review of diagnostic data, adjustment of management, discussion with other providers, nursing nursing and ancillary staff involved in patient's care documentation, 36 minutes Charges/Coding Visit Charges Inpatient E&M: 40314 Subs Hosp L2
[2023-01-09] MEDS: Azithromycin 500 MG in Dextrose 5%-Water (250mL Bag) 250 ML 250 MG IV (10:04)
--- NOTE | 2023-01-09 10:06 | CON.PCM.CC_ITS ---
Assessment & Plan Assessment/Plan (1) COPD exacerbation: (2) Secondary pulmonary arterial hypertension: PLAN: Plan RECOMMENDATIONS: 1. Continue empiric antibiotics pending cultures 2. Agree with continuation of triple therapy for now 3. Wean oxygen as tolerated 4. Out of bed as tolerated 5. Continue Tyvaso 6. Defer to hospitalist on notification of Dr. Cruz IMPRESSIONS: 1. Acute hypoxic respiratory insufficiency secondary to COPD exacerbation in the setting of advanced pulmonary hypertension Patient with acute worsening in oxygen requirements from 4 L to as high as 50% Airvo. Patient was on BiPAP briefly. Patient does appear to have a gram- negative growing in the sputum at this time. Agree with transition from ceftriaxone to Zosyn as Pseudomonas would be a concern. Patient has had allergic issues with ipratropium in the past, so okay to continue with baseline triple therapy by inhalers. Patient should continue on Tyvaso to avoid rebound pulmonary hypertension as this could significantly worsen her overall condition. Patient does see Dr. Cruz at baseline. If he is unable to see in the hospital, I would be happy to continue to follow, but he likely should have the option of seeing patient as he knows her more from baseline. 2. Coronary artery disease/aortic valve disease status post TAVR/dissecting aortic aneurysm status post stent Patient appears to be doing okay at this time. Clinical suspicion for elevated BNP and troponin secondary to hypoxia associated with problem #1. Patient is on Brilinta at baseline. Low clinical suspicion for pulmonary edema secondary to CHF. Okay to continue with baseline diuretic therapy. 3. Hypertension/hypothyroidism/hyperlipidemia/history of TIA/GERD/advanced age Complicates care, management, recovery and prognosis. Okay to continue with baseline medications from my perspective. Patient has been verified a DNR Comfort Care arrest without intubation. I believe this is appropriate given her comorbidities. Blood pressures appear to be controlled at this time. HPI Consult Data Date of Consult: 01/09/23 HPI Narrative HPI Narrative: AYAD BA is an 87 F, with past medical history listed below, who presents to [facility] on 01/07/2023 secondary to being hypoxic at home. Patient does have an extensive pulmonary history including COPD and pulmonary hypertension that is typically managed by Dr. Cruz. Patient had reported some increased lability and oxygen saturations over the previous 24 to 48 hours. No fevers or chills have been reported. Patient did report increased cough that was essentially nonproductive. In the ER, patient was afebrile, but tachypneic as high as 30 breaths/min. Pat ient was requiring 6 L nasal cannula to maintain saturations (baseline 4 L/min). Patient was slightly hypertensive, but not tachycardic. Laboratory work-up did show a white blood cell count of 11.9 with a hemoglobin of 11.9 and platelets of 251. Patient did have a left shift noted. Chemistry showed a bicarbonate of 30 with a creatinine of 0.9 and a lactate of 2.6. BNP was slightly elevated at 248 with a troponin of 45. A venous blood test showed adequate acid-base. Chest x- ray showed cardiomegaly. Cultures were obtained and patient was admitted to the floor for further evaluation. Since being hospitalized, patient has been transitioned to Airvo to maintain saturations. Patient states that she has had an anaphylactic reaction to ipratropium in the past and needs to use her regular inhalers. Patient is on triple therapy at baseline. Patient does report an extensive period of no cturnal hypoxemia, but recently was started on supplemental oxygen. Patient also has been on sildenafil until recently she was transitioned over to Tyvaso. Patient states her previous pulmonary artery pressures were in the 80s prior to addition of Tyvaso. Patient is not reporting any sick contacts. Patient does not use positive pressure with sleep. Patient had been reporting subjective improvement in exercise tolerance until approximately a week ago. Patient's daughter is at the bedside and verifies her information. Review of systems otherwise negative from a constitutional, HEENT, respiratory, cardiovascular, GI, genitourinary, musculoskeletal, skin, neurologic, psychiatric and hematologic system unless stated above. [facility] Medical History Atherosclerosis of coronary artery without angina pectoris COPD (chronic obstructive pulmonary disease) CRF (chronic renal failure) Dissecting aneurysm of thoracic aorta, Juan type A (02/28/22) Dyspnea Essential hypertension GERD (gastroesophageal reflux disease) History of lung cancer Hyperlipidemia Hypothyroidism Macular degeneration Non-rheumatic aortic stenosis Occlusion and stenosis of bilateral carotid arteries Osteoarthritis Personal history of transient ischemic attack (TIA), and cerebral infarction without residual deficits Pneumonia PVD (peripheral vascular disease) Seasonal allergies 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 Home Medications [id number] acid 0.4 mg-lycopene 300 mcg-lutein 250 mcg tablet 1 ea PO DAILY SUPPLEMENT 07/11/14 [History Last Taken Unknown] aspirin 81 mg tablet,delayed release (Adult Aspirin Regimen) 81 mg PO DAILY HEART HEALTH 06/26/18 [History Last Taken 02/28/22] celecoxib 200 mg capsule (Celebrex) 200 mg PO DAILY PAIN 06/26/18 [History Last Taken Unknown] omeprazole 20 mg capsule,delayed release 20 mg PO DAILY GERD 06/26/18 [History Last Taken 09/25/18 04:30] umeclidinium 62.5 mcg/actuation blister powder for inhalation (Incruse Ellipta) 1 inh inhalation DAILY COPD 06/26/18 [History Last Taken Unknown] vit C 250 mg-vit E 90 mg-zinc 40 mg-copper 1 [id number] capsule (PreserVision AREDS-2) 1 tab PO BID SUPPLEMENT 06/26/18 [History Last Taken Unknown] levothyroxine 112 mcg tablet 112 mcg PO QHS THYROID 06/27/18 [History Last Taken 02/28/22] trazodone 50 mg tablet 75 mg PO QHS SLEEP 09/21/18 [History Last Taken Unknown] diltiazem HCl 360 mg capsule,24 hr,extended release 360 mg PO DAILY heart 01/10/19 [History Last Taken 02/28/22] cetirizine 10 mg capsule 10 mg PO DAILY allergies 09/20/19 [History Last Taken Unknown] albuterol sulfate 90 mcg/actuation aerosol inhaler 2 puff inhalation 4X/DAY PRN COPD 12/26/19 [History Last Taken Unknown] cholecalciferol (vitamin D3) 125 mcg (5,000 unit) capsule 125 mcg PO DAILY supplement 08/24/20 [History Last Taken Unknown] potassium chloride 20 mEq tablet,extended release(part/cryst) 20 meq PO DAILY POTASSIUM 08/24/20 [History Last Taken Unknown] valsartan 80 mg tablet 80 mg PO DAILY bp #135 tabs 08/24/20 [History Last Taken 02/28/22] prednisone 10 mg tablet 10 mg PO DAILY PRN Allergy Symptoms 02/10/22 [History Last Taken Unknown] ticagrelor 90 mg tablet (Brilinta) 90 mg PO BID blood 03/08/22 [History Last Taken Unknown] acetaminophen 500 mg tablet 1,000 mg PO QAM pain 06/07/22 [History Last Taken Unknown] calcium carbonate 600 mg-vitamin D3 5 mcg (200 unit) capsule (Calcium 600 + D(3)) 1 cap PO QAM supplement 06/07/22 [History Last Taken Unknown] coenzyme Q10 100 mg capsule 100 mg PO DAILY suuplement 06/07/22 [History Last Taken Unknown] docusate sodium 100 mg capsule 300 mg PO BID stool softener 06/07/22 [History Last Taken Unknown] fluticasone furoate 200 mcg-vilanterol 25 mcg/dose inhalation powder (Breo Betty investigation division captain) 1 inh inhalation DAILY copd 06/07/22 [History Last Taken Unknown] guaifenesin 600 mg tablet, extended release 12 hr (Mucinex) 600 mg PO BID cough 06/07/22 [History Last Taken Unknown] lactobacillus combination no.9 4 billion cell capsule (Adult 50 Plus Probiotic) 4,000 mmu cells PO BID colon health 06/07/22 [History Last Taken Unknown] omega-3 fatty acids 1,000 mg capsule 1,000 mg PO DAILY supplement 06/07/22 [History Last Taken Unknown] rosuvastatin 20 mg tablet 20 mg PO DAILY statin 06/07/22 [History Last Taken Unknown] furosemide 40 mg tablet 40 mg PO DAILY water 01/07/23 [History Last Taken Unknown] treprostinil 64 mcg cartridge with inhaler (Tyvaso DPI) 64 mcg inhalation Q6H breathing 01/07/23 [History Last Taken Unknown] Allergy/AdvReac Type Severity Reaction Status Date / Time morphine Allergy UNCONTROLLED Verified 10/04/22 15:21 BEHAVIOR DANISH Inhibitors AdvReac Intermediate cough Verified 10/04/22 15:21 ipratropium AdvReac Intermediate PASSING OUT Verified 10/04/22 15:21 Family History Mother Liver failure Brother Myasthenia gravis Pacemaker Sister CAD (coronary artery disease) CABG x 4 CVA (cerebral vascular accident) Father Colon cancer Surgical History History of cataract extraction History of cholecystectomy (2009) History of colectomy (09/2018) History of colonoscopy (08/09/18) History of coronary artery stent placement (02/28/22) History of lobectomy of lung History of right and left heart catheterization (02/08/19) History of right heart catheterization (RHC) (07/22/22) History of tonsillectomy History of total left knee replacement History of transcatheter aortic valve replacement (TAVR) (04/04/22) History of tubal ligation lung cancer 2012 rll lobectemy Status post total right knee replacement Social History household members: none Smoking Status: Former smoker how long ago did patient quit smokin years ago alcohol intake: current alcohol intake frequency: holidays/special occasions only Alcohol type: wine caffeine: Yes Type: coffee Number of servings: 2 ROS ROS Narrative See HPI Physical Exam Const alert and oriented x3 General Appearance: cooperative and in distress Positive for moderate (Conversational dyspnea noted) HEENT normocephalic, head/scalp atraumatic and moist oral mucous membranes General Ear: hearing grossly impaired Eyes PERRL and EOMs intact bilaterally Neck no lymphadenopathy and supple Lymph Lymphatic: no lymphadenopathy noted and no lymphedema noted Resp Auscultation: diminished lung sounds; Negative for rales, rhonchi or wheezes Cardio regular rate, regular rhythm, S1 normal heart sound and S2 normal heart sound Heart Sounds: murmur GI normal to inspection, nondistended, normoactive bowel sounds, soft to palpation, non-tender and non-distended Extremity normal capillary refill General Extremity: clubbing and no tenderness to palpation of joints or extremities Skin Skin Narrative: Dermal atrophy noted General Skin Exam: no breakdown Neuro CN's II-XII intact bilaterally and no focal motor deficits Psych thought process normal, cooperative and affect normal Appearance: appropriate Medical Records Data Attestation: I reviewed the patient's medical records Lab / Micro Data Attestation: I reviewed the patient's lab results. Lab results narrative: PFT results not available for review 01/09/23 06:05 01/09/23 06:05 Labs: Laboratory Results - last 24 hr 01/09/23 06:05: WBC 13.0 H, RBC 3.38 L, Hgb 9.7 L, Hct 31.9 L, MCV 94.4, MCH 28.7, MCHC 30.4 L, RDW Std Deviation 63.3 H, RDW Coeff of Fernanda 18.5 H, Plt Count 182, MPV 11.7, Immature Gran % (Auto) 0.500, Neut % (Auto) 94.2 H, Lymph % (Auto) 2.7 L, [place] % (Auto) 2.5, Eos % (Auto) 0.0, Baso % (Auto) 0.1, Absolute Neuts (auto) 12.3 H, Absolute Lymphs (auto) 0.35 L, Nucleated RBC % 0, Differential Comment SCANNED, Sodium 139, Potassium 4.9, Chloride 109 H, Carbon Dioxide 27.0, Anion Gap 3 L, BUN 19 H, Creatinine 0.75, Estim Creat Clear Calc 27.93, Est GFR (MDRD) Af Amer 93, Est GFR (MDRD) Non-Af 77, BUN/Creatinine Ratio 25.2 H, Glucose 118 H, Calcium 8.7 Micro: Microbiology 01/07/23 20:34 Sputum, Expectorated/Coughed Gram Stain - Final 01/07/23 20:34 Sputum, Expectorated/Coughed Respiratory Culture - Preliminary Gram negative venu ABG Data ABG results: VBG showed normal pH Charges/Coding Visit Charges Inpatient E&M: 49614 Init Hosp L3
[2023-01-09] MEDS: Multivitamins,Ther W-Minerals Tablet 1 TABLET PO (12:17)
[2023-01-09] MEDS: Piperacil/Tazobactam 4.5 GM in 0.9% Normal Saline (100mL MB+) 100 ML IV (14:18)
[2023-01-09] MEDS: traZODone 50 MG Tablet 75 MG PO (21:54)
[2023-01-09] MEDS: Docusate Sodium 100 MG Capsule 200 MG PO (21:55)
[2023-01-09] MEDS: Methylprednisolone Sod Succ 40 MG/ML VIAL IV (21:55)
[2023-01-09] MEDS: Levothyroxine 112 MCG Tablet PO (21:56)
[2023-01-09] MEDS: Piperacil/Tazobactam 3.375 GM in 0.9% Normal Saline (50mL MB+) 50 ML IV (21:59)
[2023-01-09] MEDS: 0.9% Saline Lock 10 ML Syringe IV (21:59)
[2023-01-10] VITALS (14 sets, daily range): BP systolic 93–131; BP diastolic 54–82; PULSE 65–82; RESP 16–20; TEMP 36.4–37; O2SAT 80–97; BMI 25.7
--- NOTE | 2023-01-10 01:46 | CPS ---
Pt refused vest therapy earlier, says it makes her feel worse.
[2023-01-10 05:57] LABS: Absolute Lymphocyte Count 0.35 X10^3/uL (0.83-4.51); Absolute Neutrophil Count 12.4 X10^3/uL (2.0-7.7); Basophil# 0.01 X10^3/uL; Basophil% 0.1 % (0-1); Hematocrit 31.7 % (37-47); Hemoglobin 9.9 g/dL (12.0-15.0); Lymphocyte # 0.35 X10^3/ul (0.83-4.51); Lymphocyte % 2.6 % (19-41); Mean Corp Hgb Conc 31.2 g/dL (32-36); Mean Platelet Vol. 10.7 fl (6.2-12.0); Monocyte# 0.41 X10^3/uL; Monocyte% 3.1 % (0-10); NRBC Flagged by Analyzer 0 % (0-5); Neutrophil # 12.42 X10^3/uL (2.7-7.7); Neutrophil % 93.4 % (47-70); POSITIVE DIFFERENTIAL YES; Platelet Count 191 K/mm3 (150-450); RBC Distribution Width CV 18.5 % (11.6-14.6); Red Blood Count 3.41 M/mm3 (4.2-5.4); White Blood Count 13.3 K/mm3 (4.4-11.0)
[2023-01-10 05:58] LABS: Differential Indicated SCAN CRITERIA MET
[2023-01-10 06:25] LABS: Differential Comment SCANNED
[2023-01-10] MEDS: Acetaminophen 325 MG Tablet 650 MG PO ×2 (06:27→20:43)
[2023-01-10] MEDS: Methylprednisolone Sod Succ 40 MG/ML VIAL IV ×3 (06:27→20:40)
[2023-01-10] MEDS: Piperacil/Tazobactam 3.375 GM in 0.9% Normal Saline (50mL MB+) 50 ML IV (06:28)
[2023-01-10] MEDS: SILDENAFIL CITRATE 20 MG TABLET 60 MG PO ×3 (06:28→20:40)
[2023-01-10] MEDS: TREPROSTINIL 64 MCG CART.INHAL INHALATION ×4 (06:29→20:36)
[2023-01-10] MEDS: ALBUTEROL SULFATE 8.5 GM HFA.AER.AD 2 GM INHALATION ×4 (06:29→20:37)
[2023-01-10] MEDS: FLUTICASONE/VILANTEROL 1 EACH BLST.W.DEV INHALATION (06:30)
[2023-01-10 06:34] LABS: Anion Gap 3 (5-15); BUN 28 mg/dL (7-18); BUN/Creat Ratio 37.6 RATIO (10-20); Calcium,Total 8.6 mg/dL (8.5-10.1); Chloride 108 mmol/L (98-107); Creatinine, Serum 0.74 mg/dL (0.55-1.02); EST Glomerular Filtration Rate 78 mL/min (>60); Est Glom Filt Rate - Afr Amer 94 mL/min (>60); Estimated Creatinine Clearance 27.93 ml/min; Glucose 121 mg/dL (74-106); Potassium 4.9 mmol/L (3.5-5.1); Sodium Level 137 mmol/L (136-145)
[2023-01-10] MEDS: dilTIAZem CD 180 MG Capsule 360 MG PO (08:58)
[2023-01-10] MEDS: Enoxaparin 30 MG/0.3 ML Syringe SC (08:58)
[2023-01-10] MEDS: Cholecalciferol (Vit D3) 125 MCG CAPSULE (5,000 UNITS) PO (08:59)
[2023-01-10] MEDS: Loratadine 10 MG Tablet PO (08:59)
[2023-01-10] MEDS: Calcium Carb/Vitamin D 1 TABLET Tablet PO (08:59)
[2023-01-10] MEDS: TICAGRELOR 90 MG TABLET PO ×2 (08:59→20:38)
[2023-01-10] MEDS: Multivitamin (Healthy Eyes) Capsule 1 CAP PO ×2 (08:59→20:39)
[2023-01-10] MEDS: guaiFENesin 600 MG Tablet PO ×2 (08:59→20:40)
[2023-01-10] MEDS: Omega-3 Acid Ethyl Esters 1 GM Capsule PO (08:59)
[2023-01-10] MEDS: Aspirin E.C. 81 MG Tablet PO (08:59)
[2023-01-10] MEDS: Atorvastatin Calcium 40 MG Tablet PO (08:59)
[2023-01-10] MEDS: Pantoprazole Sodium 20 MG Tablet PO (09:00)
[2023-01-10] MEDS: Multivitamins,Ther W-Minerals Tablet 1 TABLET PO (11:44)
--- NOTE | 2023-01-10 14:50 | CPS ---
Pt unable to do PEP and vest causes pain.
--- NOTE | 2023-01-10 15:35 | PN.HOSP_ITS ---
Reason for Visit Reason for Visit: Diagnoses Secondary pulmonary arterial hypertension (01/07/23) Chronic obstructive pulmonary disease with (acute) exacerbation (01/07/23) Hypoxemia (01/07/23) Subjective Subjective Patient feeling much better today but still short of breath primarily with exertion but O2 requirements decreased. Has no new acute complaints Objective Data Objective Data Vital Signs: Vital Signs Temp Pulse Resp BP Pulse Ox O2 Del Method O2 Flow Rate 97.5 F L 69 16 101/54 L 94 Nasal Cannula 4 01/10/23 13:47 01/10/23 13:47 01/10/23 13:47 01/10/23 13:47 01/10/23 13:47 01/10/23 14:00 01/10/23 14:00 FiO2 46 01/09/23 09:20 Oxygen Flow Rate (L/min) [ 5 AMBULATING with Oxygen #2] Oxygen Flow Rate (L/min) [ 4 AMBULATING with Oxygen #1] Oxygen Flow Rate (L/min) [At 4 REST with Oxygen] Oxygen Flow Rate (L/min) 4 Oxygen Delivery Method Nasal Cannula Weight: 59.9 kg Body Mass Index (BMI) 25.7 Intake & Output: Intake and Output for Last 24 Hours 01/08/23 01/09/23 01/10/23 23:59 23:59 23:59 Intake Total 3135 / 3495 1495 / 1495 852.92 / 852.92 Output Total 2500 / 2700 1100 / 1650 550 / 550 Balance 635 / 795 395 / -155 302.92 / 302.92 Lab / Micro Data 01/10/23 05:47 01/10/23 05:47 Labs: Laboratory Results - last 24 hr 01/10/23 05:47: WBC 13.3 H, RBC 3.41 L, Hgb 9.9 L, Hct 31.7 L, MCV 93.0, MCH 29.0, MCHC 31.2 L, RDW Std Deviation 63.0 H, RDW Coeff of Fernanda 18.5 H, Plt Count 191, MPV 10.7, Immature Gran % (Auto) 0.800, Neut % (Auto) 93.4 H, Lymph % (Auto) 2.6 L, [place] % (Auto) 3.1, Eos % (Auto) 0.0, Baso % (Auto) 0.1, Absolute Neuts (auto) 12.4 H, Absolute Lymphs (auto) 0.35 L, Nucleated RBC % 0, D ifferential Comment SCANNED, Sodium 137, Potassium 4.9, Chloride 108 H, Carbon Dioxide 26.0, Anion Gap 3 L, BUN 28 H, Creatinine 0.74, Estim Creat Clear Calc 27.93, Est GFR (MDRD) Af Amer 94, Est GFR (MDRD) Non-Af 78, BUN/Creatinine Ratio 37.6 H, Glucose 121 H, Calcium 8.6 Micro: Microbiology 01/07/23 20:34 Sputum, Expectorated/Coughed Gram Stain - Final 01/07/23 20:34 Sputum, Expectorated/Coughed Respiratory Culture - Final Stenotrophomonas maltophilia 01/07/23 13:25 Blood Culture (Wb) #2 - Anticubital Left Blood Culture - Preliminary No growth in 48 hours. 01/07/23 13:29 Blood Culture (Wb) - Wrist Blood Culture - Preliminary No growth in 48 hours. 01/07/23 19:30 Mucosa - Nasopharyngeal Respiratory Panel (PCR) - Final 01/07/23 21:25 Urine, Random Streptococcus pneumoniae Antigen (M - Final 01/07/23 21:25 Urine, Random Legionella Antigen - Final 01/07/23 13:25 Nasal Secretion SARS-CoV-2 & FLU Antigen (Rapid) - Final Physical Exam Narrative General: Alert, oriented, no apparent distress HEENT: Atraumatic, normocephalic Eyes: Anicteric, normal conjunctiva, extraocular movements grossly intact Neck: Supple Respiratory: Work of breathing improving, no significant wheezes Cardiovascular: Regular rate GI: Soft, nontender, nondistended Extremities: No edema Musculoskeletal: Moving all extremities Neuro: No overt focal neurological deficits Skin: No rashes appreciated Psych: Cooperative Assessment & Plan Assessment/Plan (1) Hypoxia: (2) COPD exacerbation: PLAN: Plan #Acute on chronic respiratory failure in the setting of chronic respiratory failure due to COPD exacerbation, pulmonary artery hypertension, and pneumonia * on AIrvo this mornign but weaned down to 6L of oxygen. * Titrate oxygen to maintain sats >90% * on IV ceftriaxone and azithromycin * on IV solumedrol * sputum cultures pending. Sputum for Strep and Legionella negative. * breathing treatment with bronchodilators -01/09: Patient on steroids and umeclidinium, required resumption of Airvo overnight, now has gram-negative rods growing in sputum, will transition to Zosyn given lack of improvement until sensitivities available. We will reach out to patient's digital design engineer to see if he would like to follow while in-house, presently followed by our pulmonology team, appreciate recommendations -01/10: Discussed with patient's digital design engineer who will see her while in house, patient doing much better, patient growing stenotrophomonas maltophilia so she has been switched to Bactrim, 4 L at rest which is her baseline of 5 L with ambulation, pending progression will consider DC tomorrow, appreciate pulm input. Is still presently on Methylpred but suspect this can be de-escalated to oral, hold her potassium today given initiation of Bactrim, continue home revatio #Aortic valve disease: s/p TAVR. Stable #CAD: s/p stents. on aspirin.On aspirin, brilinta, valsartan and cardizem. 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 Stable. Had a stent inserted. #Hypertension; on cardizem, losartan, HCTZ as well as spironolactone #Hypothyroidism: on synthroid. #Hyperlipidemia: on statin #History of TIA: on aspirin and statin as well as brilinta. GERd: on PPI DVT prophylaxis: on lovenox Time spent in the patient's overall evaluation,decision-making process, review of diagnostic data, adjustment of management, discussion with other providers, nursing nursing and ancillary staff involved in patient's care documentation, 36 minutes Charges/Coding Visit Charges Inpatient E&M: 99566 Subs Hosp L2
[2023-01-10] MEDS: traZODone 50 MG Tablet 75 MG PO (20:38)
[2023-01-10] MEDS: Levothyroxine 112 MCG Tablet PO (20:41)
[2023-01-11] VITALS (9 sets, daily range): BP systolic 102–131; BP diastolic 58–66; PULSE 64–88; RESP 18–20; TEMP 36.6–36.8; O2SAT 84–96; BMI 25.9
[2023-01-11] MEDS: SILDENAFIL CITRATE 20 MG TABLET 60 MG PO ×2 (05:32→15:30)
[2023-01-11] MEDS: ALBUTEROL SULFATE 8.5 GM HFA.AER.AD 2 GM INHALATION ×3 (05:33→15:32)
[2023-01-11] MEDS: TREPROSTINIL 64 MCG CART.INHAL INHALATION ×3 (05:34→15:32)
[2023-01-11] MEDS: Methylprednisolone Sod Succ 40 MG/ML VIAL IV ×2 (05:35→15:27)
[2023-01-11 05:38] LABS: Absolute Lymphocyte Count 0.22 X10^3/uL (0.83-4.51); Absolute Neutrophil Count 9.1 X10^3/uL (2.0-7.7); Hemoglobin 10.6 g/dL (12.0-15.0); Lymphocyte # 0.22 X10^3/ul (0.83-4.51); Lymphocyte % 2.3 % (19-41); Mean Corp Hgb Conc 32.1 g/dL (32-36); Mean Corpuscular Hgb 29.4 pg (27.0-32.0); Mean Corpuscular Volume 91.7 fL (81-99); Mean Platelet Vol. 12.1 fl (6.2-12.0); Monocyte# 0.33 X10^3/uL; Monocyte% 3.4 % (0-10); NRBC Flagged by Analyzer 0 % (0-5); Neutrophil # 9.11 X10^3/uL (2.7-7.7); Neutrophil % 93.3 % (47-70); POSITIVE DIFFERENTIAL YES; Platelet Count 222 K/mm3 (150-450); RBC Distribution Width CV 18.6 % (11.6-14.6); White Blood Count 9.8 K/mm3 (4.4-11.0)
[2023-01-11 05:39] LABS: Differential Indicated SCAN CRITERIA MET
[2023-01-11 06:07] LABS: Anion Gap 4 (5-15); BUN 25 mg/dL (7-18); BUN/Creat Ratio 32.3 RATIO (10-20); Calcium,Total 8.5 mg/dL (8.5-10.1); Chloride 104 mmol/L (98-107); Creatinine, Serum 0.77 mg/dL (0.55-1.02); EST Glomerular Filtration Rate 75 mL/min (>60); Est Glom Filt Rate - Afr Amer 91 mL/min (>60); Estimated Creatinine Clearance 27.93 ml/min; Glucose 139 mg/dL (74-106); Potassium 4.6 mmol/L (3.5-5.1); Sodium Level 134 mmol/L (136-145)
[2023-01-11 06:10] LABS: Differential Comment SCANNED
--- NOTE | 2023-01-11 09:30 | CASEMGMT ---
DELMAR MARIE in to discuss discharge planning with patient and son. Patient states she would like hospital bed at discharge. DELMAR MARIE discuss home oxygen and current setup with [employer]. Patient state she would like to keep [employer] oxygen with she needs 5lpm or less of oxygen. If patient would need 6lpm of more would like to change to [facility]. [facility] would like hospital bed through [employer]. Patient declining HHC but would like palliative consult. Patient also inquired about medical alert information, information provided to patient and son. Patient had no further questions or concerns.
[2023-01-11] MEDS: Pantoprazole Sodium 20 MG Tablet PO (10:21)
[2023-01-11] MEDS: Furosemide 40 MG Tablet PO (10:21)
[2023-01-11] MEDS: dilTIAZem CD 180 MG Capsule 360 MG PO (10:21)
[2023-01-11] MEDS: Calcium Carb/Vitamin D 1 TABLET Tablet PO (10:22)
[2023-01-11] MEDS: Omega-3 Acid Ethyl Esters 1 GM Capsule PO (10:22)
[2023-01-11] MEDS: Cholecalciferol (Vit D3) 125 MCG CAPSULE (5,000 UNITS) PO (10:22)
[2023-01-11] MEDS: TICAGRELOR 90 MG TABLET PO (10:22)
[2023-01-11] MEDS: guaiFENesin 600 MG Tablet PO (10:22)
[2023-01-11] MEDS: Loratadine 10 MG Tablet PO (10:22)
[2023-01-11] MEDS: Menthol/Lanolin/Calamine/Znox 113 GM Tube 1 APPLIC TOPICAL ×2 (10:22→15:26)
[2023-01-11] MEDS: Aspirin E.C. 81 MG Tablet PO (10:22)
[2023-01-11] MEDS: Multivitamin (Healthy Eyes) Capsule 1 CAP PO (10:22)
[2023-01-11] MEDS: Atorvastatin Calcium 40 MG Tablet PO (10:23)
[2023-01-11] MEDS: Enoxaparin 30 MG/0.3 ML Syringe SC (10:34)
[2023-01-11] MEDS: FLUTICASONE/VILANTEROL 1 EACH BLST.W.DEV INHALATION (10:35)
[2023-01-11] MEDS: Multivitamins,Ther W-Minerals Tablet 1 TABLET PO (11:59)
--- NOTE | 2023-01-11 12:46 | PCM.DC ---
Discharge Instructions Diet Discharge Diet: - (DASH diet) Activity Discharge Activity: - (Increase activity as tolerated) Follow Up Care Test Results: Test results from this visit will be discussed in further detail at your follow-up appointment, if applicable. Discharge Plan Admission Admit Date/Time: 01/07/23 14:50 Primary Reason for Your Visit: Shortness of breath Attending Provider: Dyan Ngo Primary Care Provider: Meli Gómez Consulting Providers: Neva Banuelos; Omi Rios; Seth Wallace; Michelle Chandler; Beto Shaffer; Troy Dodd; Alisha Goodwin NP; Arabella Jenkins Instructions Patient Instructions: Shortness of Breath Coping Additional Instructions / Restrictions: DISCHARGE INSTRUCTIONS PLEASE READ *Please take this with you to your next doctors appointment* -Please call your associate juvenile court judge office to schedule a follow-up for 1 week -You will be discharged on a prednisone taper, you will start with 40 mg daily and every 2 days you will decrease by 10 mg -You will be discharged on Bactrim given your sputum culture, you will take 2 Bactrim DS twice a day with first dose tonight and for 2 more days thereafter. You can resume your home potassium once you have finished your Bactrim course -Please call your primary care provider's office upon discharge to schedule a hospital follow up within 1 week. -For any concerning signs or symptoms please call 911 or proceed to the nearest emergency department Discharge Orders/Prescriptions Prescriptions: New sulfamethoxazole-trimethoprim [Bactrim DS] 800-160 mg tablet 2 tab PO BID 2 Days Qty: 10 0RF Rx Instructions: First dose evening of 01/11 prednisone 20 mg Tablet See Taper PO BREAKFAST Qty: 10 0RF Taper: Prednisone Taper 40 mg WITH BREAKFAST for 2 Days and 0 Hour 30 mg WITH BREAKFAST for 2 Days and 0 Hour 20 mg WITH BREAKFAST for 2 Days and 0 Hour 10 mg WITH BREAKFAST for 2 Days and 0 Hour Rx Instructions: Take 40mg and decrease by 10mg every 2 days Continued omeprazole 20 mg capsule,delayed release(DR/EC) 20 mg PO DAILY Incruse Ellipta 62.5 mcg/actuation blister with device 1 inh INHALATION DAILY aspirin [Adult Aspirin Regimen] 81 mg tablet,delayed release (DR/EC) 81 mg PO DAILY Patient Comments: stop 5 days preop PreserVision AREDS-2 [id number] iu-sakq-oa-mg capsule 1 tab PO BID diltiazem HCl 360 mg capsule,extended release 24 hr 360 mg PO DAILY cholecalciferol (vitamin D3) 125 mcg (5,000 unit) capsule 125 mcg PO DAILY prednisone 10 mg tablet 10 mg PO DAILY PRN (Reason: Allergy Symptoms) Brilinta 90 mg tablet 90 mg PO BID rosuvastatin 20 mg tablet 20 mg PO DAILY omega-3 fatty acids 1,000 mg capsule 1,000 mg PO DAILY acetaminophen 500 mg tablet 1,000 mg PO QAM docusate sodium 100 mg capsule 300 mg PO BID Rx Instructions: 1 capsule am, 2 capsules pm coenzyme Q10 100 mg capsule 100 mg PO DAILY Calcium 600 + D(3) 600 mg-5 mcg (200 unit) capsule 1 cap PO QAM Adult 50 Plus Probiotic 4 billion cell capsule 4,000 mmu cells PO BID Rx Instructions: administer with a meal guaifenesin [Mucinex] 600 mg tablet extended release 12hr 600 mg PO BID fluticasone furoate-vilanterol [Breo Ellipta] 200-25 mcg/dose blister with device 1 inh inhalation DAILY cdwzoqgd-xio-WT-lycopen-lutein 1 EACH tablet 1 ea PO DAILY Patient Comments: MULTIVITAMIN levothyroxine 112 mcg tablet 112 mcg PO QHS Patient Comments: Takes 2 tabs on Sundays trazodone 50 MG tablet 75 mg PO QHS albuterol sulfate 90 mcg/actuation HFA aerosol inhaler 2 puff inhalation 4X/DAY PRN (Reason: COPD) Patient Comments: LUNGS cetirizine 10 MG capsule 10 mg PO DAILY furosemide 40 mg tablet 40 mg PO DAILY Tyvaso DPI 64 mcg cartridge with inhaler 64 mcg inhalation Q6H Patient Comments: will drop her blood pressure Held celecoxib [Celebrex] 200 mg capsule 200 mg PO DAILY Hold Instructions: Resume on 01/14/23. valsartan 80 mg tablet 80 mg PO DAILY Qty: 135 Hold Instructions: Resume on 01/14/23. potassium chloride 20 mEq tablet,ER particles/crystals 20 meq PO DAILY Hold Instructions: Resume on 01/14/23. Referrals / Follow Up: Meli Gómez DO [Primary Care Provider] - Within 1 Week Jamie Cruz MD [Med Staff - Active Staff] - Within 1 Week Disposition Disposition (needs filled in before D/C Order can be placed): Home, Self Care
--- NOTE | 2023-01-11 15:13 | CASEMGMT ---
Hospitalist updated regarding discharge needs. Patient is requiring 6lpm with ambulation. Scripts received for DME requests and order received for palliative consult. RN CM in to updated patient regarding increase of oxygen order and requested RN CM update son. RN CM called son and updated regarding increase in home oxygen. Luther Espitia agreeable to [employer] setup. RN CM sent referral to [employer] via [facility]. RN CM completed palliative screening tool and sent referral to [facility] palliative. CM will continue to follow this patient and plan for a safe discharge.
--- NOTE | 2023-01-11 15:15 | PCM.DC.SUM ---
Providers Date of Admission: 01/07/23 Date of Discharge: 01/11/23 Primary Care Physician: Dr. Meli Gómez, DO Consultations 01/08/23 08:15 Consult: Well Treatment Offsider / Pulmonary Medicine Routine Consulting Provider: Pulmonary Medicine dillon Breaks Reason for Consult: acute hypoxic respiratory failure due to pneumonia EMERGENT Consult: No MD Notified: Yes Date Notified: 01/08/23 Time Notified: 08:15 Method of Notification: Text Reason For Visit: ACUTE ON CHRONIC RSP FAILURE, COPD EXACERBATION Diagnosis Discharge Diagnosis (1) Hypoxia: Status: Acute Code(s): R09.02 - Hypoxemia (2) COPD exacerbation: Status: Chronic Code(s): J44.1 - Chronic obstructive pulmonary disease with (acute) exacerbation Plan #Acute on chronic respiratory failure in the setting of chronic respiratory failure due to COPD exacerbation, pulmonary artery hypertension, and questionable pneumonia #Aortic valve disease: s/p TAVR #CAD: s/p stents #History of dissecting aortic aneurysm: s/p surgery at [facility]. Stable. Had a stent inserted. #Hypertension; #Hypothyroidism: #Hyperlipidemia: #History of TIA: Medications at Discharge Home Medications xnlrfxuy-oke-ckwqs acid 0.4 mg-lycopene 300 mcg-lutein 250 mcg tablet 1 ea PO DAILY SUPPLEMENT 07/11/14 aspirin 81 mg tablet,delayed release (Adult Aspirin Regimen) 81 mg PO DAILY HEART HEALTH 06/26/18 celecoxib 200 mg capsule (Celebrex) 200 mg PO DAILY PAIN 06/26/18 omeprazole 20 mg capsule,delayed release 20 mg PO DAILY GERD 06/26/18 umeclidinium 62.5 mcg/actuation blister powder for inhalation (Incruse Ellipta) 1 inh inhalation DAILY COPD 06/26/18 vit C 250 mg-vit E 90 mg-zinc 40 mg-copper 1 mn-rjywqi-gmlmyg capsule (PreserVision AREDS-2) 1 tab PO BID SUPPLEMENT 06/26/18 levothyroxine 112 mcg tablet 112 mcg PO QHS THYROID 06/27/18 trazodone 50 mg tablet 75 mg PO QHS SLEEP 09/21/18 diltiazem HCl 360 mg capsule,24 hr,extended release 360 mg PO DAILY heart 01/10/19 cetirizine 10 mg capsule 10 mg PO DAILY allergies 09/20/19 albuterol sulfate 90 mcg/actuation aerosol inhaler 2 puff inhalation 4X/DAY PRN COPD 12/26/19 cholecalciferol (vitamin D3) 125 mcg (5,000 unit) capsule 125 mcg PO DAILY supplement 08/24/20 potassium chloride 20 mEq tablet,extended release(part/cryst) 20 meq PO DAILY POTASSIUM 08/24/20 valsartan 80 mg tablet 80 mg PO DAILY bp #135 tabs 08/24/20 prednisone 10 mg tablet 10 mg PO DAILY PRN Allergy Symptoms 02/10/22 ticagrelor 90 mg tablet (Brilinta) 90 mg PO BID blood 03/08/22 acetaminophen 500 mg tablet 1,000 mg PO QAM pain 06/07/22 calcium carbonate 600 mg-vitamin D3 5 mcg (200 unit) capsule (Calcium 600 + D(3)) 1 cap PO QAM supplement 06/07/22 coenzyme Q10 100 mg capsule 100 mg PO DAILY suuplement 06/07/22 docusate sodium 100 mg capsule 300 mg PO BID stool softener 06/07/22 fluticasone furoate 200 mcg-vilanterol 25 mcg/dose inhalation powder (Breo Ellipta) 1 inh inhalation DAILY copd 06/07/22 guaifenesin 600 mg tablet, extended release 12 hr (Mucinex) 600 mg PO BID cough 06/07/22 lactobacillus combination no.9 4 billion cell capsule (Adult 50 Plus Probiotic) 4,000 mmu cells PO BID colon health 06/07/22 omega-3 fatty acids 1,000 mg capsule 1,000 mg PO DAILY supplement 06/07/22 rosuvastatin 20 mg tablet 20 mg PO DAILY statin 06/07/22 furosemide 40 mg tablet 40 mg PO DAILY water 01/07/23 treprostinil 64 mcg cartridge with inhaler (Tyvaso DPI) 64 mcg inhalation Q6H breathing 01/07/23 prednisone 20 mg tablet See Taper PO BREAKFAST #10 tabs 01/11/23 sulfamethoxazole 800 mg-trimethoprim 160 mg tablet (Bactrim DS) 2 tab PO BID 2 days #10 tabs 01/11/23 Hospital Course Summary of Care Provided Minutes Spent on Discharge: 45 Hospital Course: The patient is an 87 y/o F w/ PMHx: Former tobacco use, COPD with Chronic Hypoxic Respiratory Failure (4L NC), CAD s/p PCI, HTN, HLD, Macular degeneration, Carotid disease, GERD, Hx dissecting thoracic aortic aneurysm [place] type A 02/28/22, Hx Lung Cancer s/p RLL lobectomy, Hx TIA, PVD, Valvular heart disease s/p TAVR, Hypothyroidism who presents to the [facility] ED on 01/07/23 with shortness of breath and cough, chronically on 4 L nasal cannula however required Airvo to maintain her saturations, she was given Rocephin, Solu-Medrol, azithromycin and hospitalist consulted for admission. There was concern for pneumonia given presenting symptoms and sputum culture with growth and due to uncertainty of underlying organism she was switched to Zosyn and her semiconductor packages tester was contacted, she was maintained on home inhalers and IV Solu-Medrol. Patient improved significantly and was able to decrease to her home O2 requirement at rest on 01/10. Evaluated by her semiconductor packages tester who did not think that this was pneumonia that was more consistent with mucous plugging and bronchitis. Discussed antibiotics and discontinuation versus continuing it was felt that given her improvement to continue present management with course of antibiotics and keep her on IV steroids until she was discharged with plan for prednisone taper and instructions for post discharge follow-up with her semiconductor packages tester. Her sputum culture grew Stenotrophomonas maltophilia and she switched to Bactrim. Discussed with her semiconductor packages tester and he felt this may be colonization and again discussed continuing or discontinuing antibiotics and decision was made to continue. Given her fairly quick clinical recovery and lack of critical illness we will treat for a total of 7 days of antibiotics and have her follow-up closely. On day of discharge reports she feels a little bit tired and has waxed and waned with how she has felt but overall significantly improved. Suspect feeling slightly worse today because Lasix dose was held yesterday as she appeared slightly dry but with plans to resume this morning. Lungs with improved aeration and did not appear to have any increased work of breathing. Discussed risks and benefits of discharge home versus continued hospital admission and that she will likely not be back to her home 4 L with ambulation immediately and this may take time, on day of discharge she required 6 L with ambulation so new oxygen DME was set up. At this point given 4 L at rest with significant improvement and able to ambulate with 6 L think discharged with prednisone taper and outpatient follow-up has been more benefits than continued hospitalization with increased risk for worsening weakness or exposure to other pathogens given her poor lung function. Patient in agreement. Reevaluated patient in the afternoon with son at bedside, reports still feeling little bit more tired than yesterday but still saturating well on her 4 L of home O2 at rest and was able to ambulate with 6 L. Discussed optimal timing for discharge again today versus more time in the hospital and risks and benefits and ultimately all parties in agreement with discharge home with steroids and antibiotics and to follow-up with pulmonology. Additionally patient did report that she felt better sleeping in bed at night when her head was somewhat up and inquired about a hospital bed which I think would be reasonable with her comorbidities. Son acquired form that he said he would provide to her pulmonology office to fill out. Patient is ambulatory in the home and in the community and requires home oxygen with portability. Discharged in stable condition with the following discharge instructions: -Please call your semiconductor packages tester office to schedule a follow-up for 1 week -You will be discharged on a prednisone taper, you will start with 40 mg daily and every 2 days you will decrease by 10 mg -You will be discharged on Bactrim given your sputum culture, you will take 2 Bactrim DS twice a day with first dose tonight and for 2 more days thereafter. You can resume your home potassium once you have finished your Bactrim course -Please call your primary care provider's office upon discharge to schedule a hospital follow up within 1 week. -For any concerning signs or symptoms please call 911 or proceed to the nearest emergency department Physical Exam Narrative General: Alert, oriented, no apparent distress HEENT: Atraumatic, normocephalic Eyes: Anicteric, normal conjunctiva, extraocular movements grossly intact Neck: Supple Respiratory: Work of breathing improving, no significant wheezes Cardiovascular: Regular rate GI: Soft, nontender, nondistended Extremities: No edema Musculoskeletal: Moving all extremities Neuro: No overt focal neurological deficits Skin: No rashes appreciated Psych: Cooperative Weight / BMI Weight Weight: 60.3 kg Body Mass Index (BMI) 25.9 ABG / Lab / Microbiology Data 01/11/23 05:23 01/11/23 05:23 Laboratory: Laboratory Results - last 24 hr 01/11/23 05:23: WBC 9.8, RBC 3.60 L, Hgb 10.6 L, Hct 33.0 L, MCV 91.7, MCH 29.4, MCHC 32.1, RDW Std Deviation 62.0 H, RDW Coeff of Fernanda 18.6 H, Plt Count 222, MPV 12.1 H, Immature Gran % (Auto) 1.000 H, Neut % (Auto) 93.3 H, Lymph % (Auto) 2.3 L, [place] % (Auto) 3.4, Eos % (Auto) 0.0, Baso % (Auto) 0.0, Absolute Neuts (auto) 9.1 H, Absolute Lymphs (auto) 0.22 L, Nucleated RBC % 0, Differential Comment SCANNED, Sodium 134 L, Potassium 4.6, Chloride 104, Carbon Dioxide 26.0, Anion Gap 4 L, BUN 25 H, Creatinine 0.77, Estim Creat Clear Calc 27.93, Est GFR (MDRD) Af Amer 91, Est GFR (MDRD) Non-Af 75, BUN/Creatinine Ratio 32.3 H, Glucose 139 H, Calcium 8.5 Microbiology: Microbiology 01/07/23 20:34 Sputum, Expectorated/Coughed Gram Stain - Final 01/07/23 20:34 Sputum, Expectorated/Coughed Respiratory Culture - Final Stenotrophomonas maltophilia 01/07/23 13:25 Blood Culture (Wb) #2 - Anticubital Left Blood Culture - Preliminary No growth in 48 hours. 01/07/23 13:29 Blood Culture (Wb) - Wrist Blood Culture - Preliminary No growth in 48 hours. 01/07/23 19:30 Mucosa - Nasopharyngeal Respiratory Panel (PCR) - Final 01/07/23 21:25 Urine, Random Streptococcus pneumoniae Antigen (M - Final 01/07/23 21:25 Urine, Random Legionella Antigen - Final 01/07/23 13:25 Nasal Secretion SARS-CoV-2 & FLU Antigen (Rapid) - Final D/C Instructions Discharge Diet: - (DASH diet) Meaningful Use Info Meaningful Use Diagnoses (Choose all that apply): None applicable Discharge Plan Admission Admit Date/Time: 01/07/23 14:50 Primary Reason for Your Visit: Shortness of breath Attending Provider: Dyan Ngo Primary Care Provider: Meli Gómez Consulting Providers: Neva Banuelos; Omi Rios; Seth Wallace; Michelle Chandler; Beto Shaffer; Troy Dodd; Alisha Goodwin NP; Arabella Jenkins Instructions Patient Instructions: Shortness of Breath Coping Additional Instructions / Restrictions: DISCHARGE INSTRUCTIONS PLEASE READ *Please take this with you to your next doctors appointment* -Please call your semiconductor packages tester office to schedule a follow-up for 1 week -You will be discharged on a prednisone taper, you will start with 40 mg daily and every 2 days you will decrease by 10 mg -You will be discharged on Bactrim given your sputum culture, you will take 2 Bactrim DS twice a day with first dose tonight and for 2 more days thereafter. You can resume your home potassium once you have finished your Bactrim course -Please call your primary care provider's office upon discharge to schedule a hospital follow up within 1 week. -For any concerning signs or symptoms please call 911 or proceed to the nearest emergency department Discharge Orders/Prescriptions Prescriptions: New sulfamethoxazole-trimethoprim [Bactrim DS] 800-160 mg tablet 2 tab PO BID 2 Days Qty: 10 0RF Rx Instructions: First dose evening of 01/11 prednisone 20 mg Tablet See Taper PO BREAKFAST Qty: 10 0RF Taper: Prednisone Taper 40 mg WITH BREAKFAST for 2 Days and 0 Hour 30 mg WITH BREAKFAST for 2 Days and 0 Hour 20 mg WITH BREAKFAST for 2 Days and 0 Hour 10 mg WITH BREAKFAST for 2 Days and 0 Hour Rx Instructions: Take 40mg and decrease by 10mg every 2 days Continued omeprazole 20 mg capsule,delayed release(DR/EC) 20 mg PO DAILY Incruse Ellipta 62.5 mcg/actuation blister with device 1 inh INHALATION DAILY aspirin [Adult Aspirin Regimen] 81 mg tablet,delayed release (DR/EC) 81 mg PO DAILY Patient Comments: stop 5 days preop PreserVision AREDS-2 [id number] pu-svmz-oz-mg capsule 1 tab PO BID diltiazem HCl 360 mg capsule,extended release 24 hr 360 mg PO DAILY cholecalciferol (vitamin D3) 125 mcg (5,000 unit) capsule 125 mcg PO DAILY prednisone 10 mg tablet 10 mg PO DAILY PRN (Reason: Allergy Symptoms) Brilinta 90 mg tablet 90 mg PO BID rosuvastatin 20 mg tablet 20 mg PO DAILY omega-3 fatty acids 1,000 mg capsule 1,000 mg PO DAILY acetaminophen 500 mg tablet 1,000 mg PO QAM docusate sodium 100 mg capsule 300 mg PO BID Rx Instructions: 1 capsule am, 2 capsules pm coenzyme Q10 100 mg capsule 100 mg PO DAILY Calcium 600 + D(3) 600 mg-5 mcg (200 unit) capsule 1 cap PO QAM Adult 50 Plus Probiotic 4 billion cell capsule 4,000 mmu cells PO BID Rx Instructions: administer with a meal guaifenesin [Mucinex] 600 mg tablet extended release 12hr 600 mg PO BID fluticasone furoate-vilanterol [Breo Ellipta] 200-25 mcg/dose blister with device 1 inh inhalation DAILY lteudhzg-vys-GP-lycopen-lutein 1 EACH tablet 1 ea PO DAILY Patient Comments: MULTIVITAMIN levothyroxine 112 mcg tablet 112 mcg PO QHS Patient Comments: Takes 2 tabs on Sundays trazodone 50 MG tablet 75 mg PO QHS albuterol sulfate 90 mcg/actuation HFA aerosol inhaler 2 puff inhalation 4X/DAY PRN (Reason: COPD) Patient Comments: LUNGS cetirizine 10 MG capsule 10 mg PO DAILY furosemide 40 mg tablet 40 mg PO DAILY Tyvaso DPI 64 mcg cartridge with inhaler 64 mcg inhalation Q6H Patient Comments: will drop her blood pressure Held celecoxib [Celebrex] 200 mg capsule 200 mg PO DAILY Hold Instructions: Resume on 01/14/23. valsartan 80 mg tablet 80 mg PO DAILY Qty: 135 Hold Instructions: Resume on 01/14/23. potassium chloride 20 mEq tablet,ER particles/crystals 20 meq PO DAILY Hold Instructions: Resume on 01/14/23. Referrals / Follow Up: Meli Gómez DO [Primary Care Provider] - Within 1 Week Jamie Cruz MD [Med Staff - Active Staff] - Within 1 Week Disposition Disposition (needs filled in before D/C Order can be placed): Home, Self Care Charges/Coding Visit Charges Inpatient E&M: 05049 Disch Hosp >30min
--- NOTE | 2023-01-11 15:56 | PHA.DC.MC.R ---
Pharmacy [facility] has performed discharge medication reconciliation and counseling for this patient. The patient's discharge medication list was reviewed for discrepancies and discrepancies were resolved. The patient was counseled on the following discharge medications and changes in medications for homegoing were reviewed. The Reason for Use, instructions for use, and potential side effects were reviewed for all new medications. The patient's questions regarding all of their medications were answered. 1. Prednisone taper 40 x 2, 30 x 2, 20 x 2, 10 x 2 2. Bactrim DS 2 tabs PO BID x 5 doses The patient was able to verbally demonstrate an understanding of their discharge medications. Medications at Discharge Home Medications hbqypbmr-avp-khqgz acid 0.4 mg-lycopene 300 mcg-lutein 250 mcg tablet 1 ea PO DAILY SUPPLEMENT 07/11/14 aspirin 81 mg tablet,delayed release (Adult Aspirin Regimen) 81 mg PO DAILY HEART HEALTH 06/26/18 celecoxib 200 mg capsule (Celebrex) 200 mg PO DAILY PAIN 06/26/18 omeprazole 20 mg capsule,delayed release 20 mg PO DAILY GERD 06/26/18 umeclidinium 62.5 mcg/actuation blister powder for inhalation (Incruse Ellipta) 1 inh inhalation DAILY COPD 06/26/18 vit C 250 mg-vit E 90 mg-zinc 40 mg-copper 1 vq-aukgrj-eeabiu capsule (PreserVision AREDS-2) 1 tab PO BID SUPPLEMENT 06/26/18 levothyroxine 112 mcg tablet 112 mcg PO QHS THYROID 06/27/18 trazodone 50 mg tablet 75 mg PO QHS SLEEP 09/21/18 diltiazem HCl 360 mg capsule,24 hr,extended release 360 mg PO DAILY heart 01/10/19 cetirizine 10 mg capsule 10 mg PO DAILY allergies 09/20/19 albuterol sulfate 90 mcg/actuation aerosol inhaler 2 puff inhalation 4X/DAY PRN COPD 12/26/19 cholecalciferol (vitamin D3) 125 mcg (5,000 unit) capsule 125 mcg PO DAILY supplement 08/24/20 potassium chloride 20 mEq tablet,extended release(part/cryst) 20 meq PO DAILY POTASSIUM 08/24/20 valsartan 80 mg tablet 80 mg PO DAILY bp #135 tabs 08/24/20 prednisone 10 mg tablet 10 mg PO DAILY PRN Allergy Symptoms 02/10/22 ticagrelor 90 mg tablet (Brilinta) 90 mg PO BID blood 03/08/22 acetaminophen 500 mg tablet 1,000 mg PO QAM pain 06/07/22 calcium carbonate 600 mg-vitamin D3 5 mcg (200 unit) capsule (Calcium 600 + D(3)) 1 cap PO QAM supplement 06/07/22 coenzyme Q10 100 mg capsule 100 mg PO DAILY suuplement 06/07/22 docusate sodium 100 mg capsule 300 mg PO BID stool softener 06/07/22 fluticasone furoate 200 mcg-vilanterol 25 mcg/dose inhalation powder (Breo Ellipta) 1 inh inhalation DAILY copd 06/07/22 guaifenesin 600 mg tablet, extended release 12 hr (Mucinex) 600 mg PO BID cough 06/07/22 lactobacillus combination no.9 4 billion cell capsule (Adult 50 Plus Probiotic) 4,000 mmu cells PO BID colon health 06/07/22 omega-3 fatty acids 1,000 mg capsule 1,000 mg PO DAILY supplement 06/07/22 rosuvastatin 20 mg tablet 20 mg PO DAILY statin 06/07/22 furosemide 40 mg tablet 40 mg PO DAILY water 01/07/23 treprostinil 64 mcg cartridge with inhaler (Tyvaso DPI) 64 mcg inhalation Q6H breathing 01/07/23 prednisone 20 mg tablet See Taper PO BREAKFAST #10 tabs 01/11/23 sulfamethoxazole 800 mg-trimethoprim 160 mg tablet (Bactrim DS) 2 tab PO BID 2 days #10 tabs 01/11/23
== END 2023-01-11 17:59 | disposition home or self-care (01) | DRG 190 ==
LOC: ED 15:19 → PCU 15:47
PROVIDERS: Internal Medicine Critical Care Medicine; Admitting Provider Family Medicine; Emergency Provider Emergency Medicine; PCP Internal Medicine; Visit Provider Internal Medicine
DX: J44.1 Chronic obstructive pulmonary disease with (acute) exacerbation (principal); J96.21 Acute and chronic respiratory failure with hypoxia; J18.9 Pneumonia, unspecified organism; E87.20 Acidosis, unspecified; I27.20 Pulmonary hypertension, unspecified; J44.0 Chronic obstructive pulmonary disease with (acute) lower respiratory infection; E03.9 Hypothyroidism, unspecified; N18.9 Chronic kidney disease, unspecified; I12.9 Hypertensive chronic kidney disease with stage 1 through stage 4 chronic kidney disease, or unspecified chronic kidney disease; I35.9 Nonrheumatic aortic valve disorder, unspecified; D64.9 Anemia, unspecified; H35.30 Unspecified macular degeneration; I25.10 Atherosclerotic heart disease of native coronary artery without angina pectoris; K21.9 Gastro-esophageal reflux disease without esophagitis; J30.9 Allergic rhinitis, unspecified; E78.5 Hyperlipidemia, unspecified; Z95.828 Presence of other vascular implants and grafts; Z95.2 Presence of prosthetic heart valve; Z95.5 Presence of coronary angioplasty implant and graft; Z79.2 Long term (current) use of antibiotics; Z79.02 Long term (current) use of antithrombotics/antiplatelets; Z87.891 Personal history of nicotine dependence; Z79.1 Long term (current) use of non-steroidal anti-inflammatories (NSAID); Z82.3 Family history of stroke; Z79.82 Long term (current) use of aspirin; Z80.0 Family history of malignant neoplasm of digestive organs; Z79.52 Long term (current) use of systemic steroids; Z86.73 Personal history of transient ischemic attack (TIA), and cerebral infarction without residual deficits; Z85.118 Personal history of other malignant neoplasm of bronchus and lung
CPT/HCPCS: 36415; 71045; 80048; 80053; 82803; 83605; 83880; 84145; 84484; 85025; 87040; 87070; 87077; 87186; 87205; 87428; 87449; 87633; 87641; 93005; 94640; 94660; 94667; 94668; 94762; 97110; 97162; 97166; 97530; 97535; 97802; 99285; J7030; J7050; 90662; A4216

== ENCOUNTER → 2023-02-27 | Outpatient (CLI) | payer MEDICARE, OTHER, SELFPAY ==
--- NOTE | 2023-02-27 16:55 | RAD_ITS ---
STUDY: X-RAY CHEST REASON FOR EXAM: Female, 87 years old. shortness of breath -- TECHNIQUE: Single AP portable view of the chest. COMPARISON: 01/07/2023. FINDINGS: Elevated right hemidiaphragm, otherwise hyperexpansion of the lungs. On the right, possible small effusion. Mild atelectasis or infiltrate cannot be excluded in the right lung base. There is mild cardiac enlargement. There is an aortic valve stent seen in grossly satisfactory position. Normal mediastinum and jolynn. Normal visualized pulmonary arteries. There is atherosclerotic tortuosity of the aortic arch and descending thoracic aorta. There are diffuse degenerative changes of the visualized thoracic spine. Normal visualized ribs, clavicles, and shoulders. There is no demonstrated abnormality of the visualized soft tissue structures of the upper abdomen. RAD/Chest PA and Lateral IMPRESSION: Underlying COPD. On the right, possible small effusion. Mild atelectasis or infiltrate cannot be excluded in the right lung base. Electronically Signed: Mal Vick MD at 18:10 EST ,
[2023-02-27 18:08] LABS: ALB/GLOB Ratio 0.9 RATIO (0.9-2.4); AST(SGOT) 26 U/L (15-37); Alanine Aminotransfer ALT/SGPT 22 U/L (13-56); Albumin, Serum 3.1 g/dL (3.2-5.0); Alkaline Phosphatase 100 U/L (45-117); Anion Gap 11 (5-15); BUN 15 mg/dL (7-18); BUN/Creat Ratio 16.1 RATIO (10-20); Calcium,Total 8.9 mg/dL (8.5-10.1); Chloride 100 mmol/L (98-107); Creatinine, Serum 0.93 mg/dL (0.55-1.02); EST Glomerular Filtration Rate 60 mL/min (>60); Est Glom Filt Rate - Afr Amer 73 mL/min (>60); Globulin 3.5 g/dL (2.2-4.2); Glucose 107 mg/dL (74-106); Potassium 3.5 mmol/L (3.5-5.1); Protein, Total 6.6 g/dL (6.4-8.2); Sodium Level 135 mmol/L (136-145)
[2023-02-27 18:24] LABS: BNP,B-Type NATRIURETIC PEPTIDE 420.8 pg/mL (0-100)
== END | disposition home or self-care (01) ==
PROVIDERS: PCP Internal Medicine; Referring Provider Internal Medicine; Visit Provider Internal Medicine
DX: R06.02 Shortness of breath (principal)
CPT/HCPCS: 36415; 71046; 80053; 83880

== ENCOUNTER → 2023-03-28 | Outpatient (CLI) | payer MEDICARE, OTHER, SELFPAY | END | disposition home or self-care (01) | LOC: MTLAB 11:05 | PROVIDERS: PCP Internal Medicine; Referring Provider Internal Medicine Pulmonary Disease; Visit Provider Internal Medicine Pulmonary Disease | DX: I27.20 Pulmonary hypertension, unspecified (principal); R06.02 Shortness of breath | CPT/HCPCS: 36415; 83880 ==

== ENCOUNTER → 2023-04-19 | Outpatient (CLI) | payer MEDICARE, OTHER, SELFPAY ==
--- NOTE | 2023-04-19 12:56 | ECHOD_ITS ---
Reason For Study: PHTN Procedure This was a 2D Doppler, Color Flow transthoracic echocardiogram. Exam performed in department. Left Ventricle Normal LV size. D shaped septum in systole and diastole. The estimated ejection fraction is 55 %. Stage 1 diastolic dysfunction. No regional wall motion abnormalities noted. Right Ventricle Moderately dilated right ventricle. Moderate global right ventricular systolic dysfunction. Atria Normal left atrium. The right atrium is mildly enlarged. Mitral Valve Normal mitral valve. Tricuspid Valve Normal tricuspid valve. Moderately severe (3+) tricuspid valve insufficiency. Pulmonary artery systolic pressure is 90 mmHg. Severe pulmonary hypertension. Aortic Valve Peak aortic valve gradient 32 mmHg. Mean aortic valve gradient 16 mmHg. Bioprosthetic aortic valve. Pulmonic Valve Normal pulmonic valve. Great Vessels Normal aortic root. The pulmonary artery is normal size. Normal inferior vena cava. Pericardium/Pleural Small pericardial effusion. MMode/2D Measurements & Calculations LVIDd: 4.5 cm IVSd: 0.97 cm LVOT diam: 1.8 cm LVIDs: 2.8 cm LVPWd: 0.79 cm LVOT area: 2.5 cm2 RVDd: 4.7 cm FS: 36.4 % Ao root diam: 2.9 cm LAV(MOD-bp): 52.9 ml LA A4 area: 19.2 cm2 LA dimension: 3.6 cm LAV(MOD-bp) Indexed: 34.6 ml/m2 LAV(MOD-sp2): 52.9 ml LAV(MOD-sp4): 45.2 ml TAPSE: 2.0 cm RA A4 area: 20.9 cm2 Time Measurements MV dec time: 0.40 sec Doppler Measurements & Calculations MV E max enrique: 72.8 cm/sec Lat Peak E' Enrique: 9.2 cm/sec Med Peak E' Enrique: 6.6 cm/sec MV A max enrique: 112.7 cm/sec E/E' lat: 7.9 E/E' med: 11.1 MV E/A: 0.65 MV V2 max: 141.7 cm/sec MV P1/2t max enrique: 96.8 cm/sec Ao V2 max: 281.8 cm/sec MV max P.0 mmHg MV P1/2t: 147.0 msec Ao max P.8 mmHg MV V2 mean: 64.0 cm/sec MV dec slope: 192.9 cm/sec2 Ao V2 mean: 180.6 cm/sec MV mean P.0 mmHg Ao mean P.2 mmHg MV V2 VTI: 43.3 cm MVA(P1/2t): 1.5 cm2 Ao V2 VTI: 57.9 cm MVA(VTI): 1.8 cm2 AV (velocity ratio): 0.53 SAMMY(I,D): 1.3 cm2 SAMMY(V,D): 1.0 cm2 LV V1 max: 118.4 cm/sec SV(LVOT): 76.5 ml PA V2 max: 131.6 cm/sec LV V1 max P.6 mmHg PA V2 mean: 86.1 cm/sec LV V1 mean P.1 mmHg LV V1 mean: 80.4 cm/sec LV V1 VTI: 30.7 cm TR max enrique: 468.1 cm/sec TR max P.3 mmHg ECHO/Echo Complete Interpretation Summary Normal LV size. The estimated ejection fraction is 55 %. D shaped septum in systole and diastole. Stage 1 diastolic dysfunction. Moderately dilated right ventricle. Moderate global right ventricular systolic dysfunction. Mean aortic valve gradient 16 mmHg. Bioprosthetic aortic valve. Severe pulmonary hypertension. Compared to the previous echocardiogram the pulmonary pressures are more elevat ed but the aortic valve trans mean gradient is unchanged. Ordering Physician: Reece Rae Referring Physician: Reece Rae Performed By: Yair Torres RCS
== END | disposition home or self-care (01) ==
LOC: CVS 12:52
PROVIDERS: PCP Internal Medicine; Referring Provider Internal Medicine Cardiovascular Disease; Visit Provider Internal Medicine Cardiovascular Disease
DX: I27.21 Secondary pulmonary arterial hypertension (principal); I71.010 Dissection of ascending aorta; I71.21 Aneurysm of the ascending aorta, without rupture; Z95.2 Presence of prosthetic heart valve; Z95.5 Presence of coronary angioplasty implant and graft; I35.0 Nonrheumatic aortic (valve) stenosis; I25.10 Atherosclerotic heart disease of native coronary artery without angina pectoris; I10 Essential (primary) hypertension
CPT/HCPCS: 93306

== ENCOUNTER → 2023-05-01 | Outpatient (CLI) | payer MEDICARE, OTHER, SELFPAY ==
[2023-05-01 17:10] LABS: BNP,B-Type NATRIURETIC PEPTIDE 542.3 pg/mL (0-100)
== END | disposition home or self-care (01) ==
LOC: LAB 16:27
PROVIDERS: PCP Internal Medicine; Referring Provider Internal Medicine Pulmonary Disease; Visit Provider Internal Medicine Pulmonary Disease
DX: R05.9 Cough, unspecified (principal)
CPT/HCPCS: 36415; 83880

== ENCOUNTER → 2023-05-30 | Outpatient (CLI) | payer MEDICARE, OTHER, SELFPAY ==
--- NOTE | 2023-05-30 11:30 | RAD_ITS ---
INDICATION: bilateral shoulder pain EXAMINATION/TECHNIQUE: X-RAY - LEFT XR Shoulder Min 2 Views 4 VIEWS COMPARISON: FINDINGS: SOFT TISSUES: No soft tissue swelling or gas. No radiopaque foreign body. BONES/JOINTS: No evidence of acute fracture or dislocation. Degenerative flattening and sclerosis of the greater tuberosity could be due to Hill-Sachs deformity. Narrowing of the glenohumeral joint with degenerative spurs of the medial aspect of the humeral head. No sclerotic or destructive changes observed. RAD/Shoulder min 2 Views IMPRESSION: Mild degenerative changes. Electronically Signed: Corey Villagran MD at 17:09 EST ,
--- NOTE | 2023-05-30 11:37 | RAD_ITS ---
INDICATION: bilateral shoulder pain EXAMINATION/TECHNIQUE: X-RAY - RIGHT XR Shoulder Min 2 Views 8 VIEWS COMPARISON: No relevant prior comparison study available FINDINGS: SOFT TISSUES: No soft tissue swelling or gas. Right lateral pleural thickening and scarring. BONES/JOINTS: No evidence of acute fracture or dislocation. Flattening of the greater tuberosity suggestive of Hill-Sachs deformity. Preservation of the joint space.. No sclerotic or destructive changes observed. RAD/Shoulder min 2 Views IMPRESSION: No evidence of acute fracture or dislocation. Electronically Signed: Corey Villagran MD at 17:02 EST ,
== END | disposition home or self-care (01) ==
LOC: MTRAD 11:29
PROVIDERS: PCP Internal Medicine; Referring Provider Internal Medicine; Visit Provider Internal Medicine
DX: M25.511 Pain in right shoulder (principal); M25.512 Pain in left shoulder
CPT/HCPCS: 73030

== ENCOUNTER → 2023-07-06 | Outpatient (CLI) | payer MEDICARE, OTHER, SELFPAY ==
--- NOTE | 2023-07-06 16:00 | RAD_ITS ---
STUDY: X-RAY CHEST REASON FOR EXAM: Female, 87 years old. SANCHEZ TECHNIQUE: Frontal and lateral views of the chest. COMPARISON: February 27, 2023 FINDINGS: Endovascular stent valve. Left lower lobe interstitial infiltrate. Right pleural effusion. Normal size heart. Normal mediastinum and jolynn. Normal visualized pulmonary arteries. Normal visualized aortic arch and descending thoracic aorta. Normal visualized thoracic spine. Normal visualized ribs, clavicles, and shoulders. There is no demonstrated abnormality of the visualized soft tissue structures of the upper abdomen. RAD/Chest PA and Lateral IMPRESSION: Right pleural effusion unchanged. Left lower lobe infiltrate unchanged. Electronically Signed: Celio Anderson MD at 20:14 EDT ,
[2023-07-06 16:25] LABS: Absolute Lymphocyte Count 0.55 X10^3/uL (0.83-4.51); Absolute Neutrophil Count 6.4 X10^3/uL (2.0-7.7); Basophil# 0.07 X10^3/uL; Basophil% 0.9 % (0-1); Eosinophil# 0.15 X10^3/uL; Eosinophils% 1.9 % (0-5); Lymphocyte # 0.55 X10^3/ul (0.83-4.51); Lymphocyte % 7.1 % (19-41); Mean Corpuscular Volume 96.6 fL (81-99); Mean Platelet Vol. 11.3 fl (6.2-12.0); Monocyte# 0.62 X10^3/uL; NRBC Flagged by Analyzer 0 % (0-5); Neutrophil # 6.38 X10^3/uL (2.7-7.7); POSITIVE COUNT YES; POSITIVE DIFFERENTIAL YES; Platelet Count 207 K/mm3 (150-450); RBC Distribution Width SD 64.8 fl (35.1-43.9); Red Blood Count 4.14 M/mm3 (4.2-5.4); White Blood Count 7.8 K/mm3 (4.4-11.0)
[2023-07-06 16:43] LABS: Anion Gap 8 (5-15); BUN 20 mg/dL (7-18); Calcium,Total 9.2 mg/dL (8.5-10.1); Chloride 98 mmol/L (98-107); Creatinine, Serum 1.05 mg/dL (0.55-1.02); EST Glomerular Filtration Rate 53 mL/min (>60); Est Glom Filt Rate - Afr Amer 64 mL/min (>60); Glucose 117 mg/dL (74-106); Potassium 3.3 mmol/L (3.5-5.1); Sodium Level 137 mmol/L (136-145)
[2023-07-06 16:44] LABS: BNP,B-Type NATRIURETIC PEPTIDE 560.5 pg/mL (0-100)
[2023-07-06 16:57] LABS: Differential Indicated SCAN CRITERIA MET
[2023-07-06 17:02] LABS: Anisocytosis RARE; Platelet Estimate ADEQUATE (ADEQ); Platelet Morphology LARGE; Red Cell Morphology N CHROM NORMAL (NORM C&C)
[2023-07-06 17:03] LABS: Macrocytosis RARE
== END | disposition home or self-care (01) ==
LOC: RAD 15:52
PROVIDERS: PCP Internal Medicine; Referring Provider Physician Assistant Medical; Visit Provider Physician Assistant Medical
DX: R06.09 Other forms of dyspnea (principal)
CPT/HCPCS: 36415; 71046; 80048; 83880; 85025

== ENCOUNTER → 2023-07-18 | Outpatient (CLI) | payer MEDICARE, OTHER, SELFPAY ==
[2023-07-18 17:41] LABS: Absolute Lymphocyte Count 0.21 X10^3/uL (0.83-4.51); Absolute Neutrophil Count 6.6 X10^3/uL (2.0-7.7); Basophil# 0.03 X10^3/uL; Basophil% 0.4 % (0-1); Eosinophil# 0.01 X10^3/uL; Eosinophils% 0.1 % (0-5); Hematocrit 38.9 % (37-47); Hemoglobin 12.2 g/dL (12.0-15.0); Lymphocyte # 0.21 X10^3/ul (0.83-4.51); Mean Corp Hgb Conc 31.4 g/dL (32-36); Mean Corpuscular Hgb 29.5 pg (27.0-32.0); Mean Corpuscular Volume 94.2 fL (81-99); Mean Platelet Vol. 11.5 fl (6.2-12.0); Monocyte# 0.12 X10^3/uL; Monocyte% 1.7 % (0-10); NRBC Flagged by Analyzer 0 % (0-5); Neutrophil # 6.64 X10^3/uL (2.7-7.7); Neutrophil % 94.2 % (47-70); POSITIVE DIFFERENTIAL YES; Platelet Count 276 K/mm3 (150-450); RBC Distribution Width CV 17.4 % (11.6-14.6); RBC Distribution Width SD 60.8 fl (35.1-43.9); Red Blood Count 4.13 M/mm3 (4.2-5.4); White Blood Count 7.1 K/mm3 (4.4-11.0)
[2023-07-18 18:00] LABS: BNP,B-Type NATRIURETIC PEPTIDE 847.2 pg/mL (0-100)
[2023-07-18 18:10] LABS: ALB/GLOB Ratio 0.9 RATIO (0.9-2.4); AST(SGOT) 38 U/L (15-37); Alanine Aminotransfer ALT/SGPT 46 U/L (13-56); Albumin, Serum 3.4 g/dL (3.2-5.0); Alkaline Phosphatase 124 U/L (45-117); Anion Gap 8 (5-15); BUN 20 mg/dL (7-18); Calcium,Total 9.4 mg/dL (8.5-10.1); Chloride 97 mmol/L (98-107); EST Glomerular Filtration Rate 56 mL/min (>60); Est Glom Filt Rate - Afr Amer 67 mL/min (>60); Globulin 3.9 g/dL (2.2-4.2); Glucose 161 mg/dL (74-106); Potassium 3.4 mmol/L (3.5-5.1); Protein, Total 7.3 g/dL (6.4-8.2); Sodium Level 135 mmol/L (136-145)
== END | disposition home or self-care (01) ==
LOC: MTLAB 15:48
PROVIDERS: PCP Internal Medicine; Referring Provider Internal Medicine; Visit Provider Internal Medicine
DX: I50.9 Heart failure, unspecified (principal)
CPT/HCPCS: 36415; 80053; 83880; 85025

== ENCOUNTER → 2023-08-09 | Outpatient (CLI) | payer MEDICARE, OTHER, SELFPAY ==
[2023-08-09 18:12] LABS: BNP,B-Type NATRIURETIC PEPTIDE 835.5 pg/mL (0-100)
[2023-08-09 18:20] LABS: ALB/GLOB Ratio 0.9 RATIO (0.9-2.4); AST(SGOT) 47 U/L (15-37); Alanine Aminotransfer ALT/SGPT 49 U/L (13-56); Albumin, Serum 3.1 g/dL (3.2-5.0); Alkaline Phosphatase 111 U/L (45-117); Anion Gap 5 (5-15); BUN 29 mg/dL (7-18); BUN/Creat Ratio 32.3 RATIO (10-20); Calcium,Total 9.2 mg/dL (8.5-10.1); Chloride 102 mmol/L (98-107); EST Glomerular Filtration Rate 63 mL/min (>60); Est Glom Filt Rate - Afr Amer 76 mL/min (>60); Globulin 3.6 g/dL (2.2-4.2); Glucose 103 mg/dL (74-106); Potassium 4.2 mmol/L (3.5-5.1); Protein, Total 6.7 g/dL (6.4-8.2); Sodium Level 141 mmol/L (136-145)
== END | disposition home or self-care (01) ==
LOC: MTLAB 16:10
PROVIDERS: PCP Internal Medicine; Referring Provider Internal Medicine; Visit Provider Internal Medicine
DX: I50.9 Heart failure, unspecified (principal)
CPT/HCPCS: 36415; 80053; 83880

== ENCOUNTER → 2023-08-29 | Outpatient (CLI) | payer MEDICARE, OTHER, SELFPAY ==
[2023-08-29 16:54] LABS: Vitamin D,25 Hydroxy 93.5 ng/mL
[2023-08-29 17:01] LABS: Hemoglobin A1c 5.3 % (3.8-5.6)
[2023-08-29 17:07] LABS: ALB/GLOB Ratio 0.9 RATIO (0.9-2.4); AST(SGOT) 27 U/L (15-37); Alanine Aminotransfer ALT/SGPT 35 U/L (13-56); Albumin, Serum 3.3 g/dL (3.2-5.0); Alkaline Phosphatase 112 U/L (45-117); Anion Gap 7 (5-15); BUN 19 mg/dL (7-18); BUN/Creat Ratio 25.7 RATIO (10-20); Calcium,Total 9.4 mg/dL (8.5-10.1); Chloride 101 mmol/L (98-107); Creatinine, Serum 0.74 mg/dL (0.55-1.02); EST Glomerular Filtration Rate 79 mL/min (>60); Est Glom Filt Rate - Afr Amer 95 mL/min (>60); Globulin 3.6 g/dL (2.2-4.2); Glucose 106 mg/dL (74-106); Potassium 3.4 mmol/L (3.5-5.1); Protein, Total 6.9 g/dL (6.4-8.2); Sodium Level 139 mmol/L (136-145); Thyroid Stim Hormone (TSH) 1.11 uIU/mL (0.358-3.74)
[2023-08-29 18:37] LABS: Absolute Lymphocyte Count 0.73 X10^3/uL (0.83-4.51); Absolute Neutrophil Count 5.5 X10^3/uL (2.0-7.7); Basophil# 0.04 X10^3/uL; Basophil% 0.6 % (0-1); Eosinophil# 0.17 X10^3/uL; Eosinophils% 2.4 % (0-5); Hemoglobin 12.7 g/dL (12.0-15.0); Lymphocyte # 0.73 X10^3/ul (0.83-4.51); Lymphocyte % 10.3 % (19-41); Mean Corpuscular Hgb 29.3 pg (27.0-32.0); Mean Corpuscular Volume 94.7 fL (81-99); Mean Platelet Vol. 12.4 fl (6.2-12.0); Monocyte# 0.63 X10^3/uL; Monocyte% 8.9 % (0-10); NRBC Flagged by Analyzer 0 % (0-5); Neutrophil # 5.51 X10^3/uL (2.7-7.7); Neutrophil % 77.5 % (47-70); POSITIVE MORPHOLOGY YES; Platelet Count 276 K/mm3 (150-450); RBC Distribution Width CV 18.8 % (11.6-14.6); RBC Distribution Width SD 66.3 fl (35.1-43.9); Red Blood Count 4.33 M/mm3 (4.2-5.4); White Blood Count 7.1 K/mm3 (4.4-11.0)
[2023-08-29 19:06] LABS: Differential Indicated SCAN CRITERIA MET
[2023-08-29 20:41] LABS: Anisocytosis 1+; Differential Comment SCANNED
== END | disposition home or self-care (01) ==
LOC: MTLAB 15:11
PROVIDERS: PCP Internal Medicine; Referring Provider Internal Medicine; Visit Provider Internal Medicine
DX: E55.9 Vitamin D deficiency, unspecified (principal); I50.9 Heart failure, unspecified; R73.01 Impaired fasting glucose; E03.9 Hypothyroidism, unspecified
CPT/HCPCS: 36415; 80053; 82306; 83036; 84443; 85025

== ENCOUNTER → 2023-09-06 | Outpatient (CLI) | payer MEDICARE, OTHER, SELFPAY ==
[2023-09-06 15:57] LABS: Anion Gap 8 (5-15); BNP,B-Type NATRIURETIC PEPTIDE 575.3 pg/mL (0-100); BUN 24 mg/dL (7-18); BUN/Creat Ratio 28.3 RATIO (10-20); Calcium,Total 9.6 mg/dL (8.5-10.1); Chloride 101 mmol/L (98-107); Creatinine, Serum 0.85 mg/dL (0.55-1.02); EST Glomerular Filtration Rate 67 mL/min (>60); Est Glom Filt Rate - Afr Amer 81 mL/min (>60); Glucose 116 mg/dL (74-106); Potassium 4.1 mmol/L (3.5-5.1); Sodium Level 139 mmol/L (136-145)
== END | disposition home or self-care (01) ==
LOC: LABSPEC 15:05
PROVIDERS: PCP Internal Medicine; Referring Provider Internal Medicine; Visit Provider Internal Medicine
DX: E87.6 Hypokalemia (principal); I50.9 Heart failure, unspecified
CPT/HCPCS: 80048; 83880

== ENCOUNTER 2023-09-09 17:42 | Inpatient (IN) | payer MEDICARE, OTHER, SELFPAY ==
[2023-09-09 17:43] VITALS: BP 133/79; PULSE 70; RESP 16; TEMP 36.9; O2SAT 91; BMI 24.9
--- NOTE | 2023-09-09 18:08 | EX.ED.DYSGE1 ---
HPI <BRIGID Cohwdary - Last Filed: 09/09/23 19:28> History of Present Illness Chief Complaint: Lower Extremity Injury Narrative Narrative: Patient is an 88-year-old female that is on 5 L of nasal cannula oxygen daily for COPD, patient has history of aortic stenosis, CAD, on Brilinta who lives alone, ambulates with a walker or cane. Patient states that she tripped tonight over her oxygen tubing landing on her left side. Patient that she was unable to get up and she had to call the ambulance. Patient states most of her pain is in her left groin, when she is at rest she is not hurting. 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) Atherosclerosis of coronary artery without angina pectoris History of lung cancer Dyspnea Tubulovillous adenoma of colon Non-rheumatic aortic stenosis Secondary pulmonary arterial hypertension CRF (chronic renal failure) Osteoarthritis Hypothyroidism COPD (chronic obstructive pulmonary disease) Hyperlipidemia Macular degeneration Essential hypertension Occlusion and stenosis of bilateral carotid arteries PVD (peripheral vascular disease) GERD (gastroesophageal reflux disease) Personal history of transient ischemic attack (TIA), and cerebral infarction without residual deficits Pneumonia Seasonal allergies Home Medications ?Medication ?Instructions ?Recorded ?Last Taken ?Type omeprazole 20 mg capsule,delayed 20 mg PO DAILY GERD 06/26/18 09/25/18 04:30 History release umeclidinium 62.5 mcg/actuation 1 inh inhalation DAILY COPD 06/26/18 Unknown History blister powder for inhalation (Incruse Ellipta) vit C 250 mg-vit E 90 mg-zinc 40 1 tab PO BID SUPPLEMENT 06/26/18 Unknown History mg-copper 1 [id number] capsule (PreserVision AREDS-2) levothyroxine 112 mcg tablet 112 mcg PO QHS THYROID 06/27/18 02/28/22 History cetirizine 10 mg capsule 10 mg PO DAILY allergies 09/20/19 Unknown History albuterol sulfate 90 mcg/actuation 2 puff inhalation 4X/DAY PRN COPD 12/26/19 Unknown History aerosol inhaler cholecalciferol (vitamin D3) 125 125 mcg PO MOTUWETHFR supplement 08/24/20 Unknown History mcg (5,000 unit) capsule ticagrelor 90 mg tablet (Brilinta) 90 mg PO BID blood 03/08/22 Unknown History acetaminophen 500 mg tablet 1,000 mg PO QAM pain 06/07/22 Unknown History calcium carbonate 600 mg-vitamin 1 cap PO QAM supplement 06/07/22 Unknown History D3 5 mcg (200 unit) capsule (Calcium 600 + D(3)) docusate sodium 100 mg capsule 100 mg PO QHS stool softener 06/07/22 Unknown History fluticasone furoate 200 1 inh inhalation DAILY copd 06/07/22 Unknown History mcg-vilanterol 25 mcg/dose inhalation powder (Breo Ellipta) guaifenesin 600 mg tablet, 1,200 mg PO DAILY cough 06/07/22 Unknown History extended release 12 hr (Mucinex) lactobacillus combination no.9 4 4,000 mmu cells PO BID colon health 06/07/22 Unknown History billion cell capsule (Adult 50 Plus Probiotic) treprostinil 64 mcg cartridge with 64 mcg inhalation Q6H breathing 01/07/23 Unknown History inhaler (Tyvaso DPI) celecoxib 200 mg capsule (Celebrex) 200 mg PO DAILY 04/28/23 Unknown History trazodone 50 mg tablet 100 mg PO QHS SLEEP 04/28/23 Unknown History diltiazem HCl 180 mg capsule,24 180 mg PO DAILY heart #30 caps 07/07/23 Unknown Rx hr,extended release furosemide 40 mg tablet 40 mg PO QODAY 08/28/23 09/09/23 History potassium chloride 20 mEq 40 meq PO DAILY 08/28/23 Unknown History tablet,extended release furosemide 80 mg tablet 80 mg PO QODAY 09/09/23 09/08/23 History levothyroxine 112 mcg tablet 224 mcg PO .qosu 09/09/23 08/20/23 History (Euthyrox) potassium chloride 20 mEq 20 meq PO .qohs 09/09/23 09/08/23 History tablet,extended release (K-Tab) potassium chloride 20 mEq 20 meq PO QHS 09/09/23 Unknown History tablet,extended release (K-Tab) prednisone 10 mg tablet mg PO DAILY breathing 09/09/23 09/08/23 09:00 History 30 mg sildenafil (pulm.hypertension) 20 80 mg PO TID blood pressure 09/09/23 Unknown History mg tablet Allergy/AdvReac Type Severity Reaction Status Date / Time morphine Allergy UNCONTROLLED Verified 09/09/23 17:46 BEHAVIOR DANISH Inhibitors AdvReac Intermediate cough Verified 09/09/23 17:46 ipratropium AdvReac Intermediate PASSING OUT Verified 09/09/23 17:46 Family History Mother Liver failure Brother Myasthenia gravis Pacemaker Sister CAD (coronary artery disease) CABG x 4 CVA (cerebral vascular accident) Father Colon cancer Surgical History History of right heart catheterization (RHC) (07/22/22) History of transcatheter aortic valve replacement (TAVR) (04/04/22) History of coronary artery stent placement (02/28/22) History of right and left heart catheterization (02/08/19) History of colectomy (09/2018) History of colonoscopy (08/09/18) History of lobectomy of lung History of tubal ligation History of tonsillectomy History of cholecystectomy (2009) History of cataract extraction History of total left knee replacement lung cancer 2011 rll lobectemy Status post total right knee replacement Social History household members: none Smoking Status: Former smoker how long ago did patient quit smokin years ago alcohol intake: current alcohol intake frequency: holidays/special occasions only Alcohol type: wine caffeine: Yes Type: coffee Number of servings: 2 ROS <BRIGID Chowdary - Last Filed: 09/09/23 19:28> ROS ED ROS Narrative Constitutional: Negative for fever, chills, weight loss, weakness Eyes: Negative for vision loss, vision change, double vision ENT: Negative for any sore throat, ear pain, congestion Cardiovascular: Negative for any chest pain, tightness, palpitations Respiratory: Negative for any cough, sputum production, hemoptysis, dyspnea, dyspnea on exertion, orthopnea Gastrointestinal: Negative for any abdominal pain, nausea, vomiting, diarrhea, constipation, blood in stool, blood in vomit : Negative for any urinary frequency, dysuria, retention, blood in urine Muscle skeletal: Negative for any neck pain, back pain. Positive for left hip, left groin pain Neurological: Negative for any headache, syncope, dizziness Skin: Negative for any rashes, itching, abrasions, lacerations Psychiatric: Negative for any depression, anxiety, stress, suicidal ideation, homicidal ideation Hematologic: Negative for any excessive bruising, easy bleeding EXAM <BRIGID Chowdary - Last Filed: 09/09/23 19:28> Physical Exam Narrative Exam Narrative: Vital signs reviewed. HEET: Head normocephalic atraumatic, TMs clear bilaterally. Posterior pharynx is clear, moist mucous membranes. Nares clear bilaterally. Neck: Supple with no lymphadenopathy or tenderness. No signs of meningismus. Cardiac: Regular rate and rhythm no murmurs gallops or rubs, equal peripheral pulses bilaterally. Respiratory: Lungs clear to auscultation bilaterally. No chest tenderness. Abdomen: Soft, nontender, nondistended. No abdominal bruit or pulsatile masses. No hepatosplenomegaly Extremities: No peripheral edema, no signs of gross trauma or deformity. Active full range of motion of all extremities. +2 pedal pulse, negative logroll the left leg, however any sort of extension, flexion of the hip does cause some discomfort. Neuro: Cranial nerves II through XII intact, no focal neurological deficits. Skin: Clean dry and intact with no rash, purpura, petechiae, vesicles or pustules. Backs/flank: No CVA tenderness, no midline spinal tenderness, no deformity. Psych: Normal mood and affect. No SI, HI or acute psychosis. Const Vital Signs: 09/09/23 17:43 09/09/23 18:36 09/09/23 19:16 Temperature 98.4 F 98.4 F Temperature Source Oral Pulse Rate 70 67 61 Respiratory Rate 16 16 22 H Blood Pressure 133/79 H 116/60 127/56 H Blood Pressure Mean 97 78 79 Pulse Ox 91 93 97 Oxygen Delivery Method Nasal Cannula Nasal Cannula Oxygen Flow Rate (L/min) 5 5 <Dr. Miguel Jordan DO - Last Filed: 09/09/23 22:58> Physical Exam Const Vital Signs: 09/09/23 17:43 09/09/23 18:36 09/09/23 19:16 Temperature 98.4 F 98.4 F Temperature Source Oral Pulse Rate 70 67 61 Respiratory Rate 16 16 22 H Blood Pressure 133/79 H 116/60 127/56 H Blood Pressure Mean 97 78 79 Pulse Ox 91 93 97 Oxygen Delivery Method Nasal Cannula Nasal Cannula Oxygen Flow Rate (L/min) 5 5 [facility] <Luther MezaJACEY brownC - Last Filed: 09/09/23 19:28> [facility] Lab Data Labs: Laboratory Results - last 24 hr 09/09/23 18:36 WBC 8.4 RBC 4.29 Hgb 12.6 Hct 41.2 MCV 96.0 MCH 29.4 MCHC 30.6 L RDW Std Deviation 67.7 H RDW Coeff of Fernanda 19.3 H Plt Count 233 MPV 11.0 Immature Gran % (Auto) 1.300 H Neut % (Auto) 93.3 H Lymph % (Auto) 3.7 L Sevier % (Auto) 1.4 Eos % (Auto) 0.1 Baso % (Auto) 0.2 Absolute Neuts (auto) 7.9 H Absolute Lymphs (auto) 0.31 L Nucleated RBC % 0 Differential Comment SCANNED Anisocytosis 1+ Sodium 135 L Potassium 4.8 Chloride 101 Carbon Dioxide 27.0 Anion Gap 7 BUN 27 H Creatinine 1.13 H Estim Creat Clear Calc 26.89 Est GFR (MDRD) Af Amer 58 L Est GFR (MDRD) Non-Af 48 L BUN/Creatinine Ratio 23.9 H Glucose 140 H Calcium 9.2 Radiography Diagnostic Testing: Clinical Impression(s) from Imaging Studies Hip/Pelvis X-Ray 09/09/23 18:13 IMPRESSION: Left superior and inferior pubic rami fractures are identified. Possible extension into the pubic tubercle. Electronically Signed: Arnulfo Fountain DO at 18:36 EDT , Treatment and Re-Evaluation :: Differential diagnosis includes however is not limited to: Pelvic fracture, femoral intertrochanteric fracture pubic rami fracture femur fracture pelvic contusion Patient appears to be in no obvious respiratory distress, patient's vital signs are stable on her oxygen. Patient was offered pain medicine, she would like to have Tylenol. Presenting to the emergency department with mechanical fall pain to the left hip, left groin. Patient will receive x-rays of left hip, pelvis, this will be determined by ER physician. Patient's x-rays of the hip and pelvis shows a left superior and inferior pubic rami fractures are identified. Possible extension into the pubic tubercle. Secondary to this finding, I did speak with the patient. She wants to try to walk with a walker. Patient was given Tylenol because this is what she wanted. Patient will be reevaluated. Patient was unable to ambulate. At this time, do believe the patient needs to be admitted to the hospital. Patient's laboratory values showed normal CBC, patient's chemistry showed a creatinine 1.13 this is baseline. GFR 48, patient's calcium was unremarkable. At this time, I spoke with the admitting physician, he is in agreement we will. Spoke with the patient, she understands, she will follow-up outpatient. <Dr. Miguel Jordan, DO - Last Filed: 09/09/23 22:58> [facility] Lab Data Attestation: I reviewed the patient's lab results. Labs: Laboratory Results - last 24 hr 09/09/23 18:36 WBC 8.4 RBC 4.29 Hgb 12.6 Hct 41.2 MCV 96.0 MCH 29.4 MCHC 30.6 L RDW Std Deviation 67.7 H RDW Coeff of Fernanda 19.3 H Plt Count 233 MPV 11.0 Immature Gran % (Auto) 1.300 H Neut % (Auto) 93.3 H Lymph % (Auto) 3.7 L [place] % (Auto) 1.4 Eos % (Auto) 0.1 Baso % (Auto) 0.2 Absolute Neuts (auto) 7.9 H Absolute Lymphs (auto) 0.31 L Nucleated RBC % 0 Differential Comment SCANNED Anisocytosis 1+ Sodium 135 L Potassium 4.8 Chloride 101 Carbon Dioxide 27.0 Anion Gap 7 BUN 27 H Creatinine 1.13 H Estim Creat Clear Calc 26.89 Est GFR (MDRD) Af Amer 58 L Est GFR (MDRD) Non-Af 48 L BUN/Creatinine Ratio 23.9 H Glucose 140 H Calcium 9.2 Radiography Diagnostic Testing: Clinical Impression(s) from Imaging Studies Hip/Pelvis X-Ray 09/09/23 18:13 IMPRESSION: Left superior and inferior pubic rami fractures are identified. Possible extension into the pubic tubercle. Electronically Signed: Arnulfo Fountain DO at 18:36 EDT , Management Discussion w/another healthcare provider: Hospitalist (Dr. Nolan) Treatment and Re-Evaluation :: Differential diagnosis includes however is not limited to: Pelvic fracture, femoral intertrochanteric fracture pubic rami fracture femur fracture pelvic contusion Patient appears to be in no obvious respiratory distress, patient's vital signs are stable on her oxygen. Patient was offered pain medicine, she would like to have Tylenol. Presenting to the emergency department with mechanical fall pain to the left hip, left groin. Patient will receive x-rays of left hip, pelvis, this will be determined by ER physician. Patient's x-rays of the hip and pelvis shows a left superior and inferior pubic rami fractures are identified. Possible extension into the pubic tubercle. Secondary to this finding, I did speak with the patient. She wants to try to walk with a walker. Patient was given Tylenol because this is what she wanted. Patient will be reevaluated. Patient was unable to ambulate. At this time, do believe the patient needs to be admitted to the hospital. Patient's laboratory values showed normal CBC, patient's chemistry showed a creatinine 1.13 this is baseline. GFR 48, patient's calcium was unremarkable. At this time, I spoke with the admitting physician, he is in agreement we will. Spoke with the patient, she understands, she will follow-up outpatient. I have personally performed a face to face assessment of the patient and have reviewed the PILAR Note. I performed a substantive portion of the visit including all aspects of the following. My de paz findings include: History is patient sustained a fall after tripping on her oxygen tubing. She notes pain left pubic rami hip area. She denies any head injury. Patient states that since coming to the emergency department she is feeling better would really like to try to go home does not wish to stay in the hospital if she can get up and walk. Exam is focal tenderness over the superior pubic rami. Negative logroll. Neurovascular intact. Medical Decison Making my independent interpretation of the plain films is a superior and inferior pubic rami fracture. Patient is really unable to get up and ambulate. She will be admitted for pain control and PT OT evaluation. I suspect that she will need to go for rehab. Discharge Plan Dx/Rx/DC Orders Clinical Impression: Fall, Closed fracture of pubic ramus, Inability to walk, COPD (chronic obstructive pulmonary disease) Disposition Disposition: Acute Care Hospital [facility] Discharge Date/Time: 09/09/23 20:14
--- NOTE | 2023-09-09 18:13 | RAD_ITS ---
EXAM: XR LEFT HIP WITH PELVIS WHEN PERFORMED, 2 OR 3 VIEWS CLINICAL INDICATION: fall pain. TECHNIQUE: Two or three views of the left hip with pelvis when performed. COMPARISON: No relevant prior studies available. FINDINGS: BONES/JOINTS: Left superior and inferior pubic rami fractures are identified. Possible extension into the pubic tubercle. Degenerative changes in the spine and bilateral sacroiliac joints. No destructive or sclerotic lesions. Note that overlapping bowel shadows may however obscure fine detail. No widening of the pubic symphysis. SOFT TISSUES: No significant abnormality. No soft tissue swelling or gas. VASCULATURE: Vascular calcifications. RAD/HIP, UNI W/ Pelvis 2-3 Views IMPRESSION: Left superior and inferior pubic rami fractures are identified. Possible extension into the pubic tubercle. Electronically Signed: Arnulfo Fountain DO at 18:36 EDT ,
[2023-09-09] MEDS: Acetaminophen 500 MG Tablet 1000 MG PO (18:26)
[2023-09-09 18:36] VITALS: BP 116/60; PULSE 67; RESP 16; O2SAT 93
[2023-09-09 18:48] LABS: Absolute Lymphocyte Count 0.31 X10^3/uL (0.83-4.51); Absolute Neutrophil Count 7.9 X10^3/uL (2.0-7.7); Basophil# 0.02 X10^3/uL; Basophil% 0.2 % (0-1); Eosinophil# 0.01 X10^3/uL; Eosinophils% 0.1 % (0-5); Hematocrit 41.2 % (37-47); Hemoglobin 12.6 g/dL (12.0-15.0); Lymphocyte # 0.31 X10^3/ul (0.83-4.51); Lymphocyte % 3.7 % (19-41); Mean Corp Hgb Conc 30.6 g/dL (32-36); Mean Corpuscular Hgb 29.4 pg (27.0-32.0); Monocyte# 0.12 X10^3/uL; Monocyte% 1.4 % (0-10); NRBC Flagged by Analyzer 0 % (0-5); Neutrophil # 7.87 X10^3/uL (2.7-7.7); Neutrophil % 93.3 % (47-70); POSITIVE DIFFERENTIAL YES; POSITIVE MORPHOLOGY YES; Platelet Count 233 K/mm3 (150-450); RBC Distribution Width CV 19.3 % (11.6-14.6); RBC Distribution Width SD 67.7 fl (35.1-43.9); Red Blood Count 4.29 M/mm3 (4.2-5.4); White Blood Count 8.4 K/mm3 (4.4-11.0)
[2023-09-09 18:53] LABS: Differential Indicated SCAN CRITERIA MET
[2023-09-09 19:06] LABS: Anion Gap 7 (5-15); BUN 27 mg/dL (7-18); BUN/Creat Ratio 23.9 RATIO (10-20); Calcium,Total 9.2 mg/dL (8.5-10.1); Chloride 101 mmol/L (98-107); Creatinine, Serum 1.13 mg/dL (0.55-1.02); EST Glomerular Filtration Rate 48 mL/min (>60); Est Glom Filt Rate - Afr Amer 58 mL/min (>60); Estimated Creatinine Clearance 26.89 ml/min; Glucose 140 mg/dL (74-106); Potassium 4.8 mmol/L (3.5-5.1); Sodium Level 135 mmol/L (136-145)
[2023-09-09 19:16] VITALS: BP 127/56; PULSE 61; RESP 22; TEMP 36.9; O2SAT 97
--- NOTE | 2023-09-09 19:16 | PCM.HP.STD ---
[facility] - General General Date of Admission: 09/09/23 Date of Service: 09/09/23 Chief Complaint: Fall with Subsequent Left Hip Pain and Inability to Ambulate. 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 Ms. Ba reports her symptoms began approximately 1 hour prior to arrival when she was attempting to ambulate with a walker or cane when she tripped over her oxygen tubing after became tangled up in her legs landing on her Left side. She noticed immediate pain in her Left hip radiating to her groin that was made worse with movement and was not nearly as painful when she did not try to move. She then could not get up and had to activate EMS. She denies loss of consciousness, significant head trauma or other serious traumatic injury with her fall. There is no report of fever, chills, nausea, vomiting, chest pain, palpitations, heart racing, diaphoresis or swelling of her lower extremities. In the ER she was noted to have radiographic evidence of Left superior and inferior pubic rami fractures with possible extension into the pubic tubercle complicated by clinical evidence of generalized weakness and ambulatory dysfunction due to severe pain with movement with patient unable to safely return home and she was then admitted to the general medical floor for ongoing care for stay that is expected to be greater than 2 midnights. [facility] Medical History SANCHEZ (dyspnea on exertion) Hypoxia Dissecting aneurysm of thoracic aorta, Juan type A (02/28/22) Atherosclerosis of coronary artery without angina pectoris History of lung cancer Dyspnea Tubulovillous adenoma of colon Non-rheumatic aortic stenosis Secondary pulmonary arterial hypertension CRF (chronic renal failure) Osteoarthritis Hypothyroidism COPD (chronic obstructive pulmonary disease) Hyperlipidemia Macular degeneration Essential hypertension Occlusion and stenosis of bilateral carotid arteries PVD (peripheral vascular disease) GERD (gastroesophageal reflux disease) Personal history of transient ischemic attack (TIA), and cerebral infarction without residual deficits Pneumonia Seasonal allergies Home Medications ?Medication ?Instructions ?Recorded ?Last Taken ?Type omeprazole 20 mg capsule,delayed 20 mg PO DAILY GERD 06/26/18 09/25/18 04:30 History release umeclidinium 62.5 mcg/actuation 1 inh inhalation DAILY COPD 06/26/18 Unknown History blister powder for inhalation (Incruse Ellipta) vit C 250 mg-vit E 90 mg-zinc 40 1 tab PO BID SUPPLEMENT 06/26/18 Unknown History mg-copper 1 [id number] capsule (PreserVision AREDS-2) levothyroxine 112 mcg tablet 112 mcg PO QHS THYROID 06/27/18 02/28/22 History cetirizine 10 mg capsule 10 mg PO DAILY allergies 09/20/19 Unknown History albuterol sulfate 90 mcg/actuation 2 puff inhalation 4X/DAY PRN COPD 12/26/19 Unknown History aerosol inhaler cholecalciferol (vitamin D3) 125 125 mcg PO MOTUWETHFR supplement 08/24/20 Unknown History mcg (5,000 unit) capsule ticagrelor 90 mg tablet (Brilinta) 90 mg PO BID blood 03/08/22 Unknown History acetaminophen 500 mg tablet 1,000 mg PO QAM pain 06/07/22 Unknown History calcium carbonate 600 mg-vitamin 1 cap PO QAM supplement 06/07/22 Unknown History D3 5 mcg (200 unit) capsule (Calcium 600 + D(3)) docusate sodium 100 mg capsule 100 mg PO QHS stool softener 06/07/22 Unknown History fluticasone furoate 200 1 inh inhalation DAILY copd 06/07/22 Unknown History mcg-vilanterol 25 mcg/dose inhalation powder (Breo Ellipta) guaifenesin 600 mg tablet, 1,200 mg PO DAILY cough 06/07/22 Unknown History extended release 12 hr (Mucinex) lactobacillus combination no.9 4 4,000 mmu cells PO BID colon health 06/07/22 Unknown History billion cell capsule (Adult 50 Plus Probiotic) treprostinil 64 mcg cartridge with 64 mcg inhalation Q6H breathing 01/07/23 Unknown History inhaler (Tyvaso DPI) celecoxib 200 mg capsule (Celebrex) 200 mg PO DAILY 04/28/23 Unknown History trazodone 50 mg tablet 100 mg PO QHS SLEEP 04/28/23 Unknown History diltiazem HCl 180 mg capsule,24 180 mg PO DAILY heart #30 caps 07/07/23 Unknown Rx hr,extended release furosemide 40 mg tablet 40 mg PO QODAY 08/28/23 09/09/23 History potassium chloride 20 mEq 40 meq PO DAILY 08/28/23 Unknown History tablet,extended release furosemide 80 mg tablet 80 mg PO QODAY 09/09/23 09/08/23 History levothyroxine 112 mcg tablet 224 mcg PO .qosu 09/09/23 08/20/23 History (Euthyrox) potassium chloride 20 mEq 20 meq PO .qohs 09/09/23 09/08/23 History tablet,extended release (K-Tab) potassium chloride 20 mEq 20 meq PO QHS 09/09/23 Unknown History tablet,extended release (K-Tab) prednisone 10 mg tablet mg PO DAILY breathing 09/09/23 09/08/23 09:00 History 30 mg sildenafil (pulm.hypertension) 20 80 mg PO TID blood pressure 09/09/23 Unknown History mg tablet Allergy/AdvReac Type Severity Reaction Status Date / Time morphine Allergy UNCONTROLLED Verified 09/09/23 17:46 BEHAVIOR DANISH Inhibitors AdvReac Intermediate cough Verified 09/09/23 17:46 ipratropium AdvReac Intermediate PASSING OUT Verified 09/09/23 17:46 Family History Mother Liver failure Brother Myasthenia gravis Pacemaker Sister CAD (coronary artery disease) CABG x 4 CVA (cerebral vascular accident) Father Colon cancer Surgical History History of right heart catheterization (RHC) (07/22/22) History of transcatheter aortic valve replacement (TAVR) (04/04/22) History of coronary artery stent placement (02/28/22) History of right and left heart catheterization (02/08/19) History of colectomy (09/2018) History of colonoscopy (08/09/18) History of lobectomy of lung History of tubal ligation History of tonsillectomy History of cholecystectomy (2009) History of cataract extraction History of total left knee replacement lung cancer 2012 rll lobectemy Status post total right knee replacement Social History household members: none Smoking Status: Former smoker how long ago did patient quit smokin years ago alcohol intake: current alcohol intake frequency: holidays/special occasions only Alcohol type: wine caffeine: Yes Type: coffee Number of servings: 2 ROS ROS Narrative Review of systems: General: Patient denies fever or chills. HENT: Denies headache, denies stuffy nose, denies sore throat EYES: Denies changes in vision or discharge from eyes. Resp: Denies cough, denies shortness of breath Cardiac: Denies chest pain, palpitations or heart racing. GI: Denies abdominal pain, denies changes in bowel, denies nausea or vomiting : Denies changes in urination Extremity: Denies swelling Musculoskeletal: Feels somewhat generally weak and unwell with severe arthralgia of the Left hip made worse with movement as per HPI. Neuro: Patient denies headache, paresthesias or focal neurologic weakness. Heme: Denies any bleeding or bruising Skin: Denies rashes Psychiatric: No complaints voiced related uncontrolled depression or anxiety. Endocrine: No polyuria, polydipsia or polyphagia. The rest of the 14 point ROS was negative except for positives in HPI. Vital Signs Vital Signs Vital Signs: 09/09/23 17:43 09/09/23 18:36 Temperature 98.4 F Temperature Source Oral Pulse Rate 70 67 Respiratory Rate 16 16 Blood Pressure 133/79 H 116/60 Blood Pressure Mean 97 78 Pulse Ox 91 93 Oxygen Delivery Method Nasal Cannula Nasal Cannula Oxygen Flow Rate (L/min) 5 5 Weight Weight: 127 lb 10.362 oz Body Mass Index (BMI) 24.9 Physical Exam Const alert, oriented x3, no apparent distress and average body habitus General Appearance: cooperative HEENT normocephalic, head/scalp atraumatic, hearing grossly normal bilaterally and moist oral mucous membranes Eyes PERRL and EOMs intact bilaterally Neck no lymphadenopathy and supple Resp normal respiratory effort, no retractions, no use of accessory muscles and clear to auscultation bilaterally Cardio regular rate and regular rhythm GI normal to inspection, nondistended, normoactive bowel sounds, soft to palpation, non-tender and non-distended Extremity normal to inspection Extremity Narrative: Patient has pain with flexion and extension of the Left lower extremity with no signs of gross trauma or deformity. 2+ pulses throughout. Negative logrolling test. Skin Skin Narrative: Patient has no jaundice or rash. Neuro oriented x3, CN's II-XII intact bilaterally, moves all extremities and no focal motor deficits Sensorium / Orientation: awake, alert, oriented to person, oriented to place and oriented to time Speech: speech normal Psych affect normal Results Medical Records Data Attestation: I reviewed the patient's medical records Lab / Micro Data Attestation: I reviewed the patient's lab results. 09/09/23 18:36 09/09/23 18:36 Labs: Laboratory Results - last 24 hr 09/09/23 18:36: WBC 8.4, RBC 4.29, Hgb 12.6, Hct 41.2, MCV 96.0, MCH 29.4, MCHC 30.6 L, RDW Std Deviation 67.7 H, RDW Coeff of [place] 19.3 H, Plt Count 233, MPV 11.0, Immature Gran % (Auto) 1.300 H, Neut % (Auto) 93.3 H, Lymph % (Auto) 3.7 L, [place] % (Auto) 1.4, Eos % (Auto) 0.1, Baso % (Auto) 0.2, Absolute Neuts (auto) 7.9 H, Absolute Lymphs (auto) 0.31 L, Nucleated RBC % 0, Sodium 135 L, Potassium 4.8, Chloride 101, Carbon Dioxide 27.0, Anion Gap 7, BUN 27 H, Creatinine 1.13 H, Estim Creat Clear Calc 26.89, Est GFR (MDRD) Af Amer 58 L, Est GFR (MDRD) Non-Af 48 L, BUN/Creatinine Ratio 23.9 H, Glucose 140 H, Calcium 9.2 Imaging Radiology Impression Hip/Pelvis X-Ray 09/09/23 18:13 IMPRESSION: Left superior and inferior pubic rami fractures are identified. Possible extension into the pubic tubercle. Electronically Signed: Arnulfo VUnique SantoyoDO basim at 18:36 EDT , Assessment & Plan Assessment/Plan (1) Fall: QUALIFIERS: Encounter type: initial encounter Qualified Code(s): W19.XXXA - Unspecified fall, initial encounter (2) Inability to walk: (3) Closed fracture of pubic ramus: QUALIFIERS: Encounter type: initial encounter Laterality: left Qualified Code(s): S32.592A - Other specified fracture of left pubis, initial encounter for closed fracture (4) COPD (chronic obstructive pulmonary disease): QUALIFIERS: COPD type: unspecified COPD Qualified Code(s): J44.9 - Chronic obstructive pulmonary disease, unspecified (5) Secondary pulmonary arterial hypertension: (6) S/P TAVR (transcatheter aortic valve replacement): (7) History of coronary artery stent placement: (8) Dissecting aneurysm of thoracic aorta, Juan type A: (9) Non-rheumatic aortic stenosis: (10) Essential hypertension: (11) Hyperlipidemia: QUALIFIERS: Hyperlipidemia type: unspecified Qualified Code(s): E78.5 - Hyperlipidemia, unspecified PLAN: Plan 1. Left superior and inferior pubic rami fractures with possible extension into the pubic tubercle after mechanical fall at home - Admit to general medical floor. Give Tylenol as needed [id number] (level 1-5 out of 10) pain or fever. Give Percocet as needed for severe (level 6-10 out of 10) pain. Finally, we will consult PT/OT and case management to see this patient on rounds in the a.m. for further recommendations regarding possible subacute rehabilitation with help appreciated in advance. 2. Generalized weakness and ambulatory dysfunction due to severe pain with movement with patient unable to safely return home in the setting of known osteoarthritis; with history of bilateral TKR's complicating #1 - Noted. Patient typically mobilizes with walker at baseline and is now unable to do so because of #1. 3. History of tobacco abuse (quit ~2009); with subsequent COPD and chronic hypoxic respiratory failure on ~5 L NC continuous compounding #1 & #2 - Stable with no signs of flare at this time. Continue scheduled and as needed inhalers and nebulizers as previous. This complicates patient's case and may hamper her recovery. 4. Essential hypertension - Continue home medications as previous plus give as needed IV hydralazine for systolic blood pressure greater than 160 mmHg. 5. Hyperlipidemia - Resume statin as previous. 6. Hypothyroidism - Continue Synthroid and check TSH. 7. History of second artery hypertension; on chronic sildenafil BID - Noted. Maintain current sildenafil dosing. 8. CAD; s/p RCA stent (2021) on chronic Brilinta - Resume current management. 9. History of lung cancer; s/p RLL lobectomy (2011) - Noted. 10. History of occlusion and stenosis of bilateral carotid arteries - Noted. 11. History of history of TIA/CVA - According to the records patient has no residual deficits. Continue current antiplatelet therapy. 12. 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 13. History of TAVR (2021) - Noted. 14. PVD - Stable. 15. History of tubulovillous adenoma of the colon; s/p colectomy - Noted. 16. Macular degeneration - Stable. 17. CKD; stage III - Stable. 18. History of cholecystectomy - Noted. 19. GERD - Resume PPI as previous. 20. DVT prophylaxis - Lovenox 40 mg sq daily plus SCD's. Total time: Approximately 55 minutes. Charges/Coding Visit Charges Inpatient E&M: 34120 Init Hosp L2
[2023-09-09 19:20] LABS: Anisocytosis 1+; Differential Comment SCANNED
[2023-09-09 20:12] VITALS: BP 96/79; PULSE 60; RESP 18; O2SAT 95
[2023-09-09 20:30] VITALS: BP 119/46; PULSE 62; RESP 18; TEMP 37; O2SAT 96
[2023-09-09 20:47] VITALS: BMI 23.4
[2023-09-09] MEDS: 0.9% Saline Lock 10 ML Syringe IV (21:48)
[2023-09-09] MEDS: 0.9% Normal Saline (1000mL) 1,000 ML 50 ML IV (21:49)
--- NOTE | 2023-09-09 21:56 | NURSING ---
Patients son brought inhalers from home. Trying to keep at bedside. Patient refusing to use our inhalers from pharmacy. Explained she cannot be taking her own medications at bedside. I collected meds from her son Dr. Jones gave orders for her to use her own medications as patient is adamant she will refuse all ours. States is not able to take anything but hers due to it messing her up last admit.
[2023-09-09] MEDS: Levothyroxine 112 MCG Tablet PO (22:27)
[2023-09-09] MEDS: TICAGRELOR 90 MG TABLET PO (22:27)
[2023-09-09] MEDS: traZODone 100 MG Tablet PO (22:27)
[2023-09-09] MEDS: Docusate Sodium 100 MG Capsule PO (22:27)
[2023-09-09] MEDS: Potassium Chloride Oral Tablet 20 MEQ PO (22:27)
[2023-09-10] MEDS: oxyCODONE 5 MG Tablet PO (00:16)
[2023-09-10 02:30] VITALS: BP 119/68; PULSE 65; RESP 18; TEMP 36.6; O2SAT 95
[2023-09-10] MEDS: SILDENAFIL CITRATE 20 MG TABLET 80 MG PO ×3 (05:39→21:07)
[2023-09-10 05:58] VITALS: BMI 24.7
[2023-09-10 06:06] LABS: Absolute Lymphocyte Count 0.65 X10^3/uL (0.83-4.51); Basophil# 0.02 X10^3/uL; Basophil% 0.2 % (0-1); Hematocrit 37.6 % (37-47); Hemoglobin 11.7 g/dL (12.0-15.0); Lymphocyte # 0.65 X10^3/ul (0.83-4.51); Lymphocyte % 5.6 % (19-41); Mean Corp Hgb Conc 31.1 g/dL (32-36); Mean Corpuscular Hgb 29.2 pg (27.0-32.0); Mean Corpuscular Volume 93.8 fL (81-99); Mean Platelet Vol. 11.7 fl (6.2-12.0); Monocyte# 0.92 X10^3/uL; Monocyte% 7.9 % (0-10); NRBC Flagged by Analyzer 0 % (0-5); Neutrophil # 9.97 X10^3/uL (2.7-7.7); Neutrophil % 85.5 % (47-70); POSITIVE MORPHOLOGY YES; Platelet Count 223 K/mm3 (150-450); RBC Distribution Width CV 19.3 % (11.6-14.6); RBC Distribution Width SD 65.9 fl (35.1-43.9); Red Blood Count 4.01 M/mm3 (4.2-5.4); White Blood Count 11.7 K/mm3 (4.4-11.0)
[2023-09-10 06:09] LABS: Differential Indicated SCAN CRITERIA MET
[2023-09-10 06:39] LABS: ALB/GLOB Ratio 0.9 RATIO (0.9-2.4); AST(SGOT) 31 U/L (15-37); Alanine Aminotransfer ALT/SGPT 42 U/L (13-56); Albumin, Serum 2.9 g/dL (3.2-5.0); Alkaline Phosphatase 110 U/L (45-117); Anion Gap 8 (5-15); BUN 25 mg/dL (7-18); BUN/Creat Ratio 35.4 RATIO (10-20); Calcium,Total 9.1 mg/dL (8.5-10.1); Chloride 101 mmol/L (98-107); Creatinine, Serum 0.71 mg/dL (0.55-1.02); EST Glomerular Filtration Rate 83 mL/min (>60); Est Glom Filt Rate - Afr Amer 100 mL/min (>60); Estimated Creatinine Clearance 37.34 ml/min; Globulin 3.4 g/dL (2.2-4.2); Glucose 89 mg/dL (74-106); Magnesium 2.2 mg/dL (1.6-2.6); Phosphorus 3.1 mg/dL (2.5-4.9); Potassium 4.6 mmol/L (3.5-5.1); Protein, Total 6.3 g/dL (6.4-8.2); Sodium Level 135 mmol/L (136-145); Thyroid Stim Hormone (TSH) 1.43 uIU/mL (0.358-3.74)
[2023-09-10 07:51] VITALS: BP 124/59; PULSE 65; RESP 18; TEMP 36.4; O2SAT 96
[2023-09-10] MEDS: Multivitamin (Healthy Eyes) Capsule 1 CAP PO ×2 (07:58→21:04)
[2023-09-10] MEDS: predniSONE 10 MG Tablet 30 MG PO (07:59)
[2023-09-10] MEDS: Lactobacillis Acidophilus 1 CAP PO ×2 (07:59→18:31)
[2023-09-10] MEDS: Celecoxib 200 MG Capsule PO (08:00)
[2023-09-10] MEDS: Furosemide 80 MG Tablet PO (08:00)
[2023-09-10] MEDS: Calcium Carb/Vitamin D 1 TABLET Tablet PO (08:00)
[2023-09-10] MEDS: Docusate Sodium 100 MG Capsule PO (08:01)
--- NOTE | 2023-09-10 08:01 | PCM.PN.HOSP ---
Reason for Visit Reason for Visit: Diagnoses Hyperlipidemia, unspecified (09/09/23) Essential (primary) hypertension (09/09/23) Secondary pulmonary arterial hypertension (09/09/23) Nonrheumatic aortic (valve) stenosis (09/09/23) Dissection of ascending aorta (09/09/23) Aneurysm of the ascending aorta, without rupture (09/09/23) Chronic obstructive pulmonary disease, unspecified (09/09/23) Difficulty in walking, not elsewhere classified (09/09/23) Other specified fracture of left pubis, initial encounter for closed fracture (09/09/23) Unspecified fall, initial encounter (09/09/23) Presence of prosthetic heart valve (09/09/23) Presence of coronary angioplasty implant and graft (09/09/23) Objective Data Objective Data Vital Signs: Vital Signs Temp Pulse Resp BP Pulse Ox O2 Del Method O2 Flow Rate 97.5 F L 65 18 124/59 H 96 Nasal Cannula 5 09/10/23 07:51 09/10/23 07:51 09/10/23 07:51 09/10/23 07:51 09/10/23 07:51 09/10/23 07:53 09/10/23 07:53 Oxygen Flow Rate (L/min) 5 Oxygen Delivery Method Nasal Cannula Weight: 123 lb 0.287 oz Body Mass Index (BMI) 24.7 Intake & Output: Intake and Output for Last 24 Hours 09/08/23 09/09/23 09/10/23 23:59 23:59 23:59 Output Total 600 / 600 Balance -600 / -600 Lab / Micro Data 09/10/23 05:00 09/10/23 05:00 Labs: Laboratory Results - last 24 hr 09/09/23 18:36: WBC 8.4, RBC 4.29, Hgb 12.6, Hct 41.2, MCV 96.0, MCH 29.4, MCHC 30.6 L, RDW Std Deviation 67.7 H, RDW Coeff of [place] 19.3 H, Plt Count 233, MPV 11.0, Immature Gran % (Auto) 1.300 H, Neut % (Auto) 93.3 H, Lymph % (Auto) 3.7 L, [place] % (Auto) 1.4, Eos % (Auto) 0.1, Baso % (Auto) 0.2, Absolute Neuts (auto) 7.9 H, Absolute Lymphs (auto) 0.31 L, Nucleated RBC % 0, Differential Comment SCANNED, Anisocytosis 1+, Sodium 135 L, Potassium 4.8, Chloride 101, Carbon Dioxide 27.0, Anion Gap 7, BUN 27 H, Creatinine 1.13 H, Estim Creat Clear Calc 26.89, Est GFR (MDRD) Af Amer 58 L, Est GFR (MDRD) Non-Af 48 L, BUN/Creatinine Ratio 23.9 H, Glucose 140 H, Calcium 9.2 09/10/23 05:00: WBC 11.7 H, RBC 4.01 L, Hgb 11.7 L, Hct 37.6, MCV 93.8, MCH 29.2, MCHC 31.1 L, RDW Std Deviation 65.9 H, RDW Coeff of [place] 19.3 H, Plt Count 223, MPV 11.7, Immature Gran % (Auto) 0.800, Neut % (Auto) 85.5 H, Lymph % (Auto) 5.6 L, [place] % (Auto) 7.9, Eos % (Auto) 0.0, Baso % (Auto) 0.2, Absolute Neuts (auto) 10.0 H, Absolute Lymphs (auto) 0.65 L, Nucleated RBC % 0, Sodium 135 L, Potassium 4.6, Chloride 101, Carbon Dioxide 26.0, Anion Gap 8, BUN 25 H, Creatinine 0.71, Estim Creat Clear Calc 37.34, Est GFR (MDRD) Af Amer 100, Est GFR (MDRD) Non-Af 83, BUN/Creatinine Ratio 35.4 H, Glucose 89, Calcium 9.1, Phosphorus 3.1, Magnesium 2.2, Total Bilirubin 0.50, AST 31, ALT 42, Alkaline Phosphatase 110, Total Protein 6.3 L, Albumin 2.9 L, Globulin 3.4, Albumin/Globulin Ratio 0.9, TSH 1.43 Radiography Diagnostic Testing: Radiology Impression Hip/Pelvis X-Ray 09/09/23 18:13 IMPRESSION: Left superior and inferior pubic rami fractures are identified. Possible extension into the pubic tubercle. Electronically Signed: Arnulfo Fountain DO at 18:36 EDT , Physical Exam Narrative Seen and examined. Complain of pain only on movement otherwise no significant pain while sitting. No fever. Physical exam General: Alert, Oriented x3, Cooperative HEENT: Hard of hearing. Atraumatic, PERRLA, EOMI, Normocephalic Oral: No Gingival or Mucosal Lesions/ Ulcerations Neck: Supple, No JVD, Negative Carotid Bruits Chest wall/Lungs: Air entry diminished in bilateral lung bases. No crepitation/rhonchi Cardiovascular: Regular rate, Regular Rhythm, Normal S1, Normal S2, No M/G/R Abdomen: Bowel Sounds Present, Soft, Non Tender, Non-Distended : No dysuria. No renal angle tenderness. No suprapubic tenderness. Extremities: No edema, Capillary Refill Less than 3 Seconds Skin: No rashes, No breakdown Musculoskeletal: Tenderness present over left pubic rami. ROM not attempted to aggravate pain. No acute tenderness to Palpation of other joints or Extremities Neurological: Cranial nerves II-XII grossly intact, DTR 2+/4. No acute focal neurological deficit. Psych/Mental Status: Normal Affect, Appropriate. Assessment & Plan Assessment/Plan (1) Fall: QUALIFIERS: Encounter type: initial encounter Qualified Code(s): W19.XXXA - Unspecified fall, initial encounter (2) Closed fracture of pubic ramus: QUALIFIERS: Encounter type: initial encounter Laterality: left Qualified Code(s): S32.592A - Other specified fracture of left pubis, initial encounter for closed fracture PLAN: Plan This is a 88-year-old female with history of COPD on 5 L of oxygen was admitted after she tripped over her oxygen tubing, fell on the left side and then unable to get up and complain of pain in her left groin. She was found to have left superior and 23 mm abductor. 1. Left superior and inferior pubic rami fractures with possible extension into the pubic tubercle after mechanical fall at home - Admit to general medical floor. Give Tylenol as needed [id number] (level 1-5 out of 10) pain or fever. Give Percocet as needed for severe (level 6-10 out of 10) pain. Finally, we will consult PT/OT and case management to see this patient on rounds in the a.m. for further recommendations regarding possible subacute rehabilitation with help appreciated in advance. 09/09: Fracture, its pathophysiology and healing discussed with the patient and son near the bedside. Conservative management with pain management PT and OT as mentioned above. Laxatives ordered as she had BM 1 day before admission 2. Generalized weakness and ambulatory dysfunction due to severe pain with movement with patient unable to safely return home in the setting of known osteoarthritis; with history of bilateral TKR's complicating #1 - Noted. Patient typically mobilizes with walker at baseline and is now unable to do so 3. History of tobacco abuse (quit ~2009); with subsequent COPD and chronic hypoxic respiratory failure on ~5 L NC continuous compounding #1 & #2 - Stable with no signs of flare at this time. Continue scheduled and as needed inhalers and nebulizers as previous. This complicates patient's case and may hamper her recovery. 4. Essential hypertension - Continue home medications as previous plus give as needed IV hydralazine for systolic blood pressure greater than 160 mmHg. 5. Hyperlipidemia - Resume statin as previous. 6. Hypothyroidism - Continue Synthroid and check TSH. 7. History of second artery hypertension; on chronic sildenafil BID - Noted. Maintain current sildenafil dosing. 8. CAD; s/p RCA stent (2021) on chronic Brilinta - Resume current management. 9. History of lung cancer; s/p RLL lobectomy (2011) - Noted. 10. History of occlusion and stenosis of bilateral carotid arteries - Noted. 11. History of history of TIA/CVA - According to the records patient has no residual deficits. Continue current antiplatelet therapy. 12. 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 13. History of TAVR (2021) - Noted. 14. PVD - Stable. 15. History of tubulovillous adenoma of the colon; s/p colectomy - Noted. 16. Macular degeneration - Stable. 17. CKD; stage III - Stable. 09/09: BUN/creatinine normal. 18. History of cholecystectomy - Noted. 19. GERD - Resume PPI as previous. 20. DVT prophylaxis - Lovenox 40 mg sq daily plus SCD's. Charges/Coding Visit Charges Inpatient E&M: 42100 Subs Hosp L2
[2023-09-10] MEDS: Pantoprazole Sodium 20 MG Tablet PO (08:02)
[2023-09-10] MEDS: dilTIAZem CD 180 MG Capsule PO (08:03)
[2023-09-10] MEDS: Potassium Chloride Oral Tablet 20 MEQ 40 MEQ PO (08:03)
[2023-09-10] MEDS: TICAGRELOR 90 MG TABLET PO ×2 (08:03→21:04)
[2023-09-10] MEDS: Enoxaparin 30 MG/0.3 ML Syringe SC (08:04)
[2023-09-10] MEDS: guaiFENesin 1,200 MG Tablet 1200 MG PO (08:04)
[2023-09-10] MEDS: TREPROSTINIL 64 MCG CART.INHAL INHALATION ×4 (08:05→21:08)
[2023-09-10] MEDS: Umeclidinium Bromide Inhaler 1 PUFF INHALATION (08:06)
[2023-09-10] MEDS: FLUTICASONE/VILANTEROL 1 EACH BLST.W.DEV INHALATION (08:06)
[2023-09-10 08:59] VITALS: O2SAT 94
[2023-09-10 09:52] LABS: Anisocytosis 1+; Differential Comment SCANNED
[2023-09-10 14:14] VITALS: BP 121/63; PULSE 60; RESP 18; TEMP 36.6; O2SAT 97
[2023-09-10] MEDS: Polyethylene Glycol 3350 17 GM PACKET PO (16:41)
[2023-09-10 18:05] VITALS: BP 118/72; PULSE 63; RESP 18; TEMP 36.5; O2SAT 95
[2023-09-10] MEDS: 0.9% Normal Saline (1000mL) 1,000 ML 50 ML IV (18:05)
[2023-09-10] MEDS: Potassium Chloride Oral Tablet 20 MEQ PO ×2 (18:31→18:32)
[2023-09-10 20:47] VITALS: BP 125/72; PULSE 71; RESP 18; TEMP 36.6; O2SAT 94
[2023-09-10] MEDS: Senna/Docusate Sodium 1 Tablet 2 TABLET PO (21:04)
[2023-09-10] MEDS: Levothyroxine 112 MCG Tablet PO (21:04)
[2023-09-10] MEDS: traZODone 100 MG Tablet PO (21:04)
[2023-09-10] MEDS: Acetaminophen 325 MG Tablet 650 MG PO (21:21)
[2023-09-11 03:00] VITALS: BP 120/64; PULSE 64; RESP 16; TEMP 36.6; O2SAT 95
[2023-09-11 06:00] VITALS: BMI 25.2
[2023-09-11] MEDS: SILDENAFIL CITRATE 20 MG TABLET 80 MG PO ×3 (06:27→20:51)
[2023-09-11 06:48] VITALS: O2SAT 94
[2023-09-11] MEDS: Potassium Chloride Oral Tablet 20 MEQ 40 MEQ PO (08:40)
[2023-09-11] MEDS: Calcium Carb/Vitamin D 1 TABLET Tablet PO (08:40)
[2023-09-11] MEDS: Lactobacillis Acidophilus 1 CAP PO ×2 (08:40→16:55)
[2023-09-11] MEDS: predniSONE 10 MG Tablet 30 MG PO (08:41)
[2023-09-11] MEDS: TREPROSTINIL 64 MCG CART.INHAL INHALATION ×4 (08:42→20:51)
[2023-09-11] MEDS: Acetaminophen 325 MG Tablet 650 MG PO (08:47)
[2023-09-11 09:30] VITALS: BP 118/63; PULSE 66; RESP 18; TEMP 36.4; O2SAT 96
[2023-09-11 09:46] VITALS: O2SAT 95
[2023-09-11] MEDS: Umeclidinium Bromide Inhaler 1 PUFF INHALATION (10:33)
[2023-09-11] MEDS: FLUTICASONE/VILANTEROL 1 EACH BLST.W.DEV INHALATION (10:35)
[2023-09-11] MEDS: TICAGRELOR 90 MG TABLET PO ×2 (10:36→20:50)
[2023-09-11] MEDS: Cholecalciferol (Vit D3) 125 MCG CAPSULE (5,000 UNITS) PO (10:36)
[2023-09-11] MEDS: Multivitamin (Healthy Eyes) Capsule 1 CAP PO ×2 (10:36→20:50)
[2023-09-11] MEDS: dilTIAZem CD 180 MG Capsule PO (10:37)
[2023-09-11] MEDS: Celecoxib 200 MG Capsule PO (10:37)
[2023-09-11] MEDS: Pantoprazole Sodium 20 MG Tablet PO (10:37)
[2023-09-11] MEDS: Loratadine 10 MG Tablet PO (10:37)
[2023-09-11] MEDS: Furosemide 40 MG Tablet PO (10:38)
[2023-09-11] MEDS: Polyethylene Glycol 3350 17 GM PACKET PO (10:38)
[2023-09-11] MEDS: guaiFENesin 1,200 MG Tablet 1200 MG PO (10:38)
[2023-09-11] MEDS: Senna/Docusate Sodium 1 Tablet 2 TABLET PO (10:39)
[2023-09-11] MEDS: Enoxaparin 40 MG/0.4 ML Syringe SC (10:41)
--- NOTE | 2023-09-11 11:48 | PN.HOSP_ITS ---
Reason for Visit Reason for Visit: Diagnoses Hyperlipidemia, unspecified (09/09/23) Essential (primary) hypertension (09/09/23) Secondary pulmonary arterial hypertension (09/09/23) Nonrheumatic aortic (valve) stenosis (09/09/23) Dissection of ascending aorta (09/09/23) Aneurysm of the ascending aorta, without rupture (09/09/23) Chronic obstructive pulmonary disease, unspecified (09/09/23) Difficulty in walking, not elsewhere classified (09/09/23) Other specified fracture of left pubis, initial encounter for closed fracture (09/09/23) Unspecified fall, initial encounter (09/09/23) Presence of prosthetic heart valve (09/09/23) Presence of coronary angioplasty implant and graft (09/09/23) Objective Data Objective Data Vital Signs: Vital Signs Temp Pulse Resp BP Pulse Ox O2 Del Method O2 Flow Rate 97.6 F L 66 18 118/63 96 Nasal Cannula 5 09/11/23 09:30 09/11/23 09:30 09/11/23 09:30 09/11/23 09:30 09/11/23 09:30 09/11/23 09:30 09/11/23 09:30 Oxygen Flow Rate (L/min) 5 Oxygen Delivery Method Nasal Cannula Weight: 125 lb 0.034 oz Body Mass Index (BMI) 25.2 Intake & Output: Intake and Output for Last 24 Hours 09/09/23 09/10/23 09/11/23 23:59 23:59 23:59 Intake Total 1999 / 1999 Output Total 1949 / 1950 250 / 250 Balance 50 / 50 -250 / -250 Lab / Micro Data 09/10/23 05:00 09/10/23 05:00 Physical Exam Narrative Seen and examined. Complain of pain only on movement otherwise no significant pain while sitting. No fever. No change. Move her bowels. Physical exam General: Alert, Oriented x3, Cooperative HEENT: Hard of hearing. Atraumatic, PERRLA, EOMI, Normocephalic Oral: No Gingival or Mucosal Lesions/ Ulcerations Neck: Supple, No JVD, Negative Carotid Bruits Chest wall/Lungs: Air entry diminished in bilateral lung bases. No crepitation/rhonchi Cardiovascular: Regular rate, Regular Rhythm, Normal S1, Normal S2, No M/G/R Abdomen: Bowel Sounds Present, Soft, Non Tender, Non-Distended : No dysuria. No renal angle tenderness. No suprapubic tenderness. Extremities: No edema, Capillary Refill Less than 3 Seconds Skin: No rashes, No breakdown Musculoskeletal: Mild tenderness present over left pubic rami. No acute tenderness to Palpation of other joints or Extremities Neurological: Cranial nerves II-XII grossly intact, DTR 2+/4. No acute focal neurological deficit. Psych/Mental Status: Normal Affect, Appropriate. Assessment & Plan Assessment/Plan (1) Fall: QUALIFIERS: Encounter type: initial encounter Qualified Code(s): W19.XXXA - Unspecified fall, initial encounter (2) Closed fracture of pubic ramus: QUALIFIERS: Encounter type: initial encounter Laterality: left Q ualified Code(s): S32.592A - Other specified fracture of left pubis, initial encounter for closed fracture PLAN: Plan This is a 88-year-old female with history of COPD on 5 L of oxygen was admitted after she tripped over her oxygen tubing, fell on the left side and then unable to get up and complain of pain in her left groin. She was found to have left superior and 23 mm abductor. 1. Left superior and inferior pubic rami fractures with possible extension into the pubic tubercle after mechanical fall at home - Admit to general medical floor. Give Tylenol as needed [id number] (level 1-5 out of 10) pain or fever. Give Percocet as needed for severe (level 6-10 out of 10) pain. Finally, we will consult PT/OT and case management to see this patient on rounds in the a.m. for further recommendations regarding possible subacute rehabilitation with help appreciated in advance. 09/09: Pelvic fracture, its pathophysiology and healing discussed with the patient and son near the bedside. Conservative management with pain management PT and OT as mentioned above. Laxatives ordered as she had BM 1 day before admission. 09/10: PT to continue. No acute change. Patient moved her bowels. 2. Generalized weakness and ambulatory dysfunction due to severe pain with movement with patient unable to safely return home in the setting of known osteoarthritis; with history of bilateral TKR. Patient typically mobilizes with walker at baseline and is now unable to do so 3. History of tobacco abuse (quit ~2009); with subsequent COPD and chronic hypoxic respiratory failure on ~5 L NC continuous- Stable with no signs of flare at this time. Continue scheduled and as needed inhalers and nebulizers as previous. This complicates patient's case and may hamper her recovery. 4. Essential hypertension - Continue home medications as previous plus give as needed IV hydralazine for systolic blood pressure greater than 160 mmHg. 5. Hyperlipidemia - Resume statin as previous. 6. Hypothyroidism - Continue Synthroid. TSH normal 7. History of second artery hypertension; on chronic sildenafil BID - Noted. Maintain current sildenafil dosing. 8. CAD; s/p RCA stent (2021) on chronic Brilinta - Resume current management. 9. History of lung cancer; s/p RLL lobectomy (2011) - Noted. 10. History of occlusion and stenosis of bilateral carotid arteries - Noted. 11. History of history of TIA/CVA - According to the records patient has no residual deficits. Continue current antiplatelet therapy. 12. 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 13. History of TAVR (2021) 14. PVD - Stable. 15. History of tubulovillous adenoma of the colon; s/p colectomy - Noted. 16. Macular degeneration - Stable. 17. CKD; stage III - Stable. 09/09: BUN/creatinine normal. 18. History of cholecystectomy - Noted. 19. GERD - Resume PPI as previous. 20. DVT prophylaxis - Lovenox 40 mg sq daily plus SCD's. Charges/Coding Visit Charges Inpatient E&M: 09967 Subs Hosp L2
[2023-09-11 13:25] VITALS: BP 128/72; PULSE 66; RESP 18; TEMP 36.5; O2SAT 98
[2023-09-11] MEDS: Potassium Chloride Oral Tablet 20 MEQ PO (16:55)
[2023-09-11] MEDS: 0.9% Saline Lock 10 ML Syringe IV (16:55)
[2023-09-11 20:38] VITALS: BP 113/80; PULSE 66; RESP 18; TEMP 36.7; O2SAT 94
[2023-09-11] MEDS: Acetaminophen 500 MG Tablet 1000 MG PO (20:49)
[2023-09-11] MEDS: traZODone 100 MG Tablet PO (20:50)
[2023-09-11] MEDS: Levothyroxine 112 MCG Tablet PO (20:50)
[2023-09-12 03:13] VITALS: BP 102/76; PULSE 75; RESP 18; TEMP 36.6; O2SAT 94
[2023-09-12 06:00] VITALS: BMI 26.2
[2023-09-12] MEDS: SILDENAFIL CITRATE 20 MG TABLET 80 MG PO ×3 (06:22→21:15)
[2023-09-12 06:55] VITALS: O2SAT 93
[2023-09-12 07:49] VITALS: BP 104/67; PULSE 61; RESP 18; TEMP 36.6; O2SAT 96
[2023-09-12] MEDS: Lactobacillis Acidophilus 1 CAP PO ×2 (08:04→17:27)
[2023-09-12] MEDS: Potassium Chloride Oral Tablet 20 MEQ 40 MEQ PO (08:05)
[2023-09-12] MEDS: Calcium Carb/Vitamin D 1 TABLET Tablet PO (08:10)
[2023-09-12] MEDS: predniSONE 20 MG Tablet PO (08:11)
[2023-09-12] MEDS: Acetaminophen 500 MG Tablet 1000 MG PO ×2 (08:11→21:15)
[2023-09-12] MEDS: TREPROSTINIL 64 MCG CART.INHAL INHALATION ×4 (08:12→21:15)
[2023-09-12] MEDS: dilTIAZem CD 180 MG Capsule PO (10:27)
[2023-09-12] MEDS: Multivitamin (Healthy Eyes) Capsule 1 CAP PO ×2 (10:27→21:15)
[2023-09-12] MEDS: TICAGRELOR 90 MG TABLET PO ×2 (10:27→21:15)
[2023-09-12] MEDS: Celecoxib 200 MG Capsule PO (10:27)
[2023-09-12] MEDS: Furosemide 80 MG Tablet PO (10:28)
[2023-09-12] MEDS: guaiFENesin 1,200 MG Tablet 1200 MG PO (10:29)
[2023-09-12] MEDS: Pantoprazole Sodium 20 MG Tablet PO (10:29)
[2023-09-12] MEDS: Enoxaparin 40 MG/0.4 ML Syringe SC (10:29)
[2023-09-12] MEDS: Cholecalciferol (Vit D3) 125 MCG CAPSULE (5,000 UNITS) PO (10:30)
[2023-09-12] MEDS: Umeclidinium Bromide Inhaler 1 PUFF INHALATION (10:31)
[2023-09-12] MEDS: FLUTICASONE/VILANTEROL 1 EACH BLST.W.DEV INHALATION (10:31)
--- NOTE | 2023-09-12 12:00 | CASEMGMT ---
RN?CM?HOSPITAL TELEVISION RENTAL CLERK?CM?to room to meet with patient for initial transition planning/care coordination?assessment.?RN?CM?introduced self and role at [facility].? Pt voices understanding and consents to?assessment?at this time.? Pt sitting up in chair in room in no distress at this time.? Pt is A/O at this time and answers all questions appropriately.?? Care providers, pharmacy, and demographics verified/updated at this time. PCP: Dr Gómez Specialists: Dr Rae-cardiology, Dr Cruz-pulmonology, Dr Jacobs-podiatry, Dr Lisa-dermatology. Pt also sees a retina specialist in [place]. She states she has an appt 09/20 for an injection for macular degeneration. Noted a palliative referral was made 12/2022. Pt states she did not sign on w/palliative, stating she did not feel she needed it then and she still does not feels she needs it at this time. [email or web address] Pres[facility] Benefit:?yes Living Will/HPOA:?Has LW and HCPOA, who is her son, Luther LNOK: Luther Espitia. LOKI Gale Living Arrangements: Lives alone in 1-story home w/basement w/stair lift. 2 steps to enter home. Pt was independent w/ADL's @ her baseline prior to fall/injury. Son, Luther, manages her medications d/t macular degeneration. He also gets groceries and family assists w/meals. Pt is able to prepare some meals on her own as well. Transportation: Luther Espitia DME: ?States has the following DME:?shower chair, cane, transport chair, grab bars, walker, rollator, WC, medical alert, pulse ox, O2 thru [employer]- per Nikolaidyne @ [employer], current orders are 4 l/m contin and 6 l/m w/exertion. Pt states Dr Cruz has told her she can increase to what makes her comfortable. Pt states she was wearing it @ 10 l/m for awhile @ home, but she just recently had an appt w/Dr Cruz and she had went down to 8 l/m for awhile. She states she has been tolerating 6 l/m during the day and 5 l/m @ HS since being in the hospital. Pt currently is on 6 l/m and tolerating well. Pt has an [employer] POC, but states it only goes up to 5 l/m. She has a concentrator and portable O2 tanks @ home. Pt states no need for further DME at this time.? HHC/SNF: Pt has been to [facility] in the past and has had [facility] in the past. Discussed discharge planning. Pt states she would like to go to [facility] as her 1st preference and declines wanting list of other SNF options. SW made aware. Pt voices no further concerns/needs at this time.? PLAN:??SNF Tommy BSN?RN?CM
--- NOTE | 2023-09-12 13:11 | CASEMGMT ---
Social Work- A list of SNF providers including quality and resource use data and consistent with the patient?s preferred geographic region, medical needs, and insurance network were provided from the [employer] Guide. Pt facility of choice is TCU followed by [facility]. MEHDI Serra
[2023-09-12 13:53] VITALS: BP 105/58; PULSE 70; RESP 16; TEMP 36.6; O2SAT 94
--- NOTE | 2023-09-12 15:06 | PCM.PN.HOSP ---
Reason for Visit Reason for Visit: Diagnoses Hyperlipidemia, unspecified (09/09/23) Essential (primary) hypertension (09/09/23) Secondary pulmonary arterial hypertension (09/09/23) Nonrheumatic aortic (valve) stenosis (09/09/23) Dissection of ascending aorta (09/09/23) Aneurysm of the ascending aorta, without rupture (09/09/23) Chronic obstructive pulmonary disease, unspecified (09/09/23) Difficulty in walking, not elsewhere classified (09/09/23) Other specified fracture of left pubis, initial encounter for closed fracture (09/09/23) Unspecified fall, initial encounter (09/09/23) Presence of prosthetic heart valve (09/09/23) Presence of coronary angioplasty implant and graft (09/09/23) Objective Data Objective Data Vital Signs: Vital Signs Temp Pulse Resp BP Pulse Ox O2 Del Method O2 Flow Rate 97.8 F 70 16 105/58 L 94 Nasal Cannula 6 09/12/23 13:53 09/12/23 13:53 09/12/23 13:53 09/12/23 13:53 09/12/23 13:53 09/12/23 13:53 09/12/23 13:53 Oxygen Flow Rate (L/min) 6 Oxygen Delivery Method Nasal Cannula Weight: 130 lb 4.691 oz Body Mass Index (BMI) 26.2 Intake & Output: Intake and Output for Last 24 Hours 09/10/23 09/11/23 09/12/23 23:59 23:59 23:59 Intake Total 1999 1768.33 / 1968.33 300 / 300 Output Total 1949 1000 / 1000 150 / 150 Balance 50 / 50 768.33 / 968.33 150 / 150 Lab / Micro Data 09/10/23 05:00 09/10/23 05:00 Physical Exam Narrative Seen and examined. No change. Complain of pain only on movement otherwise no significant pain while sitting. No fever. She is moving her bowels every day, today also. Physical exam General: Alert, Oriented x3, Cooperative HEENT: Hard of hearing. Atraumatic, PERRLA, EOMI, Normocephalic Oral: No Gingival or Mucosal Lesions/ Ulcerations Neck: Supple, No JVD, Negative Carotid Bruits Chest wall/Lungs: Air entry diminished in bilateral lung bases. No crepitation/rhonchi Cardiovascular: Regular rate, Regular Rhythm, Normal S1, Normal S2, No M/G/R Abdomen: Bowel Sounds Present, Soft, Non Tender, Non-Distended : No dysuria. No renal angle tenderness. No suprapubic tenderness. Extremities: No edema, Capillary Refill Less than 3 Seconds Skin: No rashes, No breakdown Musculoskeletal: Mild tenderness present over left pubic rami. No acute tenderness to Palpation of other joints or Extremities Neurological: Cranial nerves II-XII grossly intact, DTR 2+/4. No acute focal neurological deficit. Psych/Mental Status: Normal Affect, Appropriate. Assessment & Plan Assessment/Plan (1) Fall: QUALIFIERS: Encounter type: initial encounter Qualified Code(s): W19.XXXA - Unspecified fall, initial encounter (2) Closed fracture of pubic ramus: QUALIFIERS: Encounter type: initial encounter Laterality: left Qualified Code(s): S32.592A - Other specified fracture of left pubis, initial encounter for closed fracture PLAN: Plan This is a 88-year-old female with history of COPD on 5 L of oxygen was admitted after she tripped over her oxygen tubing, fell on the left side and then unable to get up and complain of pain in her left groin. She was found to have left superior and 23 mm abductor. 1. Left superior and inferior pubic rami fractures with possible extension into the pubic tubercle after mechanical fall at home - Admit to general medical floor. Give Tylenol as needed [id number] (level 1-5 out of 10) pain or fever. Give Percocet as needed for severe (level 6-10 out of 10) pain. Finally, we will consult PT/OT and case management to see this patient on rounds in the a.m. for further recommendations regarding possible subacute rehabilitation with help appreciated in advance. 09/09: Pelvic fracture, its pathophysiology and healing discussed with the patient and son near the bedside. Conservative management with pain management PT and OT as mentioned above. Laxatives ordered as she had BM 1 day before admission. 09/10: PT to continue. No acute change. Patient moved her bowels. 09/11: Pre-CERT pending. Continue PT and OT. 2. Generalized weakness and ambulatory dysfunction due to severe pain with movement with patient unable to safely return home in the setting of known osteoarthritis; with history of bilateral TKR. Patient typically mobilizes with walker at baseline and is now unable to do so 3. History of tobacco abuse (quit ~2009); with subsequent COPD and chronic hypoxic respiratory failure on ~5 L NC continuous- Stable with no signs of flare at this time. Continue scheduled and as needed inhalers and nebulizers as previous. This complicates patient's case and may hamper her recovery. 09/11: Baseline oxygen requirement 4. Essential hypertension - Continue home medications as previous plus give as needed IV hydralazine for systolic blood pressure greater than 160 mmHg. 5. Hyperlipidemia - Resume statin as previous. 6. Hypothyroidism - Continue Synthroid. TSH normal 7. History of second artery hypertension; on chronic sildenafil BID - Noted. Maintain current sildenafil dosing. 8. CAD; s/p RCA stent (2021) on chronic Brilinta - Resume current management. 9. History of lung cancer; s/p RLL lobectomy (2011) - Noted. 10. History of occlusion and stenosis of bilateral carotid arteries - Noted. 11. History of history of TIA/CVA - According to the records patient has no residual deficits. Continue current antiplatelet therapy. 12. 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 13. History of TAVR (2021) 14. PVD - Stable. 15. History of tubulovillous adenoma of the colon; s/p colectomy - Noted. 16. Macular degeneration - Stable. 17. CKD; stage III - Stable. 09/09: BUN/creatinine normal. 18. History of cholecystectomy - Noted. 19. GERD - Resume PPI as previous. 20. DVT prophylaxis - Lovenox 40 mg sq daily plus SCD's. Charges/Coding Visit Charges Inpatient E&M: 18089 Subs Hosp L2
--- NOTE | 2023-09-12 15:37 | CASEMGMT ---
Addendum entered by Leila Chatman 09/12/23 15:47: Fax confirmation rec'd. Leila Chatman DC Planning Asst. Original Note: Discharge Planning Referral faxed to [facility]. Leila Chatman DC Planning Asst.
--- NOTE | 2023-09-12 15:59 | CASEMGMT ---
Social Work Referral made to TCU and they do not have any beds open. DC assistant director of residence life updated and to send referral to [facility]. Pt notified. Plan: [facility], pending acceptance MEHDI Ardon
[2023-09-12] MEDS: Potassium Chloride Oral Tablet 20 MEQ PO ×2 (17:26)
[2023-09-12 21:06] VITALS: BP 135/82; PULSE 76; RESP 20; TEMP 36.6; O2SAT 94
[2023-09-12] MEDS: traZODone 100 MG Tablet PO (21:15)
[2023-09-12] MEDS: Levothyroxine 112 MCG Tablet PO (21:15)
[2023-09-13 04:06] VITALS: BP 126/74; PULSE 67; RESP 18; TEMP 36.6; O2SAT 93
[2023-09-13] MEDS: SILDENAFIL CITRATE 20 MG TABLET 80 MG PO ×2 (05:08→12:49)
[2023-09-13 06:00] VITALS: BMI 25.2
[2023-09-13 07:33] VITALS: O2SAT 96
--- NOTE | 2023-09-13 09:13 | CASEMGMT ---
Social Work- Revisited referral with TCU. Awaiting decision from TCU. MEHDI Serra
[2023-09-13] MEDS: Potassium Chloride Oral Tablet 20 MEQ 40 MEQ PO (09:24)
[2023-09-13] MEDS: Acetaminophen 500 MG Tablet 1000 MG PO (09:24)
[2023-09-13] MEDS: Loratadine 10 MG Tablet PO (09:25)
[2023-09-13] MEDS: Celecoxib 200 MG Capsule PO (09:25)
[2023-09-13] MEDS: TICAGRELOR 90 MG TABLET PO (09:25)
[2023-09-13] MEDS: Multivitamin (Healthy Eyes) Capsule 1 CAP PO (09:25)
[2023-09-13] MEDS: dilTIAZem CD 180 MG Capsule PO (09:25)
[2023-09-13] MEDS: predniSONE 20 MG Tablet PO (09:25)
[2023-09-13] MEDS: Lactobacillis Acidophilus 1 CAP PO ×2 (09:26→17:18)
[2023-09-13] MEDS: Cholecalciferol (Vit D3) 125 MCG CAPSULE (5,000 UNITS) PO (09:26)
[2023-09-13] MEDS: Pantoprazole Sodium 20 MG Tablet PO (09:26)
[2023-09-13] MEDS: guaiFENesin 1,200 MG Tablet 1200 MG PO (09:26)
[2023-09-13] MEDS: Enoxaparin 40 MG/0.4 ML Syringe SC (09:27)
[2023-09-13] MEDS: Furosemide 40 MG Tablet PO (09:27)
[2023-09-13] MEDS: FLUTICASONE/VILANTEROL 1 EACH BLST.W.DEV INHALATION (09:28)
[2023-09-13] MEDS: Umeclidinium Bromide Inhaler 1 PUFF INHALATION (09:28)
[2023-09-13] MEDS: TREPROSTINIL 64 MCG CART.INHAL INHALATION ×3 (09:29→17:17)
[2023-09-13] MEDS: Calcium Carb/Vitamin D 1 TABLET Tablet PO (09:29)
[2023-09-13 10:06] VITALS: BP 113/63; PULSE 73; RESP 18; TEMP 36.4; O2SAT 95
--- NOTE | 2023-09-13 11:53 | CASEMGMT ---
Discharge Planning Call placed to Eva @ [facility] to cancel referral. Leila Chatman DC Planning Asst.
--- NOTE | 2023-09-13 12:55 | DS.PCM_ITS ---
Providers Date of Admission: 09/09/23 Date of Discharge: 09/13/23 Primary Care Physician: Dr. Meli Gómez DO Reason For Visit: LEFT SUPERIOR AND INFERIOR PUBIC FRACTURES AFTER Diagnosis Discharge Diagnosis (1) Fall: Status: Acute Code(s): W19.XXXA - Unspecified fall, initial encounter Qualifiers: Encounter type: initial encounter Qualified Code(s): W19.XXXA - Unspecified fall, initial encounter (2) Closed fracture of pubic ramus: Status: Acute Code(s): S32.599A - Other specified fracture of unspecified pubis, initial encounter for closed fracture Qualifiers: Encounter type: initial encounter Laterality: left Qualified Code(s): S32.592A - Other specified fracture of left pubis, initial encounter for closed fracture Medications at Discharge Home Medications omeprazole 20 mg capsule,delayed release 20 mg PO DAILY GERD 06/26/18 umeclidinium 62.5 mcg/actuation blister powder for inhalation (Incruse Ellipta) 1 inh inhalation DAILY COPD 06/26/18 vit C 250 mg-vit E 90 mg-zinc 40 mg-copper 1 [id number] capsule (PreserVision AREDS-2) 1 tab PO BID SUPPLEMENT 06/26/18 levothyroxine 112 mcg tablet 112 mcg PO QHS THYROID 06/27/18 cetirizine 10 mg capsule 10 mg PO DAILY allergies 09/20/19 albuterol sulfate 90 mcg/actuation aerosol inhaler 2 puff inhalation 4X/DAY PRN COPD 12/26/19 cholecalciferol (vitamin D3) 125 mcg (5,000 unit) capsule 125 mcg PO MOTUWETHFR supplement 08/24/20 ticagrelor 90 mg tablet (Brilinta) 90 mg PO BID blood 03/08/22 acetaminophen 500 mg tablet 1,000 mg PO QAM pain 06/07/22 calcium carbonate 600 mg-vitamin D3 5 mcg (200 unit) capsule (Calcium 600 + D(3)) 1 cap PO QAM supplement 06/07/22 docusate sodium 100 mg capsule 100 mg PO QHS stool softener 06/07/22 fluticasone furoate 200 mcg-vilanterol 25 mcg/dose inhalation powder (Breo Ellipta) 1 inh inhalation DAILY copd 06/07/22 guaifenesin 600 mg tablet, extended release 12 hr (Mucinex) 1,200 mg PO DAILY cough 06/07/22 lactobacillus combination no.9 4 billion cell capsule (Adult 50 Plus Probiotic) 4,000 mmu cells PO BID colon health 06/07/22 treprostinil 64 mcg cartridge with inhaler (Tyvaso DPI) 64 mcg inhalation Q6H breathing 01/07/23 celecoxib 200 mg capsule (Celebrex) 200 mg PO DAILY 04/28/23 trazodone 50 mg tablet 100 mg PO QHS SLEEP 04/28/23 diltiazem HCl 180 mg capsule,24 hr,extended release 180 mg PO DAILY heart #30 caps 07/07/23 furosemide 40 mg tablet 40 mg PO QODAY 08/28/23 potassium chloride 20 mEq tablet,extended release 40 meq PO DAILY 08/28/23 furosemide 80 mg tablet 80 mg PO QODAY 09/09/23 levothyroxine 112 mcg tablet (Euthyrox) 224 mcg PO .qosu 09/09/23 potassium chloride 20 mEq tablet,extended release (K-Tab) 20 meq PO .qohs 09/09/23 potassium chloride 20 mEq tablet,extended release (K-Tab) 20 meq PO QHS 09/09/23 prednisone 10 mg tablet mg PO DAILY breathing 09/09/23 sildenafil (pulm.hypertension) 20 mg tablet 80 mg PO TID blood pressure 09/09/23 Hospital Course Operations None Procedures - (Hip/pelvis x-ray) Summary of Care Provided Minutes Spent on Discharge: 35 Hospital Course: Patient is an 88-year-old female who presented to [facility] ED on 09/09/2023 with left sided pelvic pain after a fall at home. Hospital course as noted below. Discharged to TCU in stable condition on 09/12. 1. Left superior and inferior pubic rami fractures secondary to mechanical fall with acute on chronic debility, history of osteoarthritis s/p bilateral total knee replacement ? PT/OT/case management followed. Lives alone in one-story home with basement stair lift; was independent with ADLs prior to this fall. Continue Tylenol for pain management. Discharged to [facility] in stable condition on 09/12. 2. COPD with chronic hypoxic respiratory failure on 5 L nasal cannula at baseline ? Stable on home 5 L of cannula during hospitalization. Continue home inhalers. Chronic medical conditions: ? History of tobacco abuse: Quit in 2009. Encouraged continued cessation. ? Hypothyroidism: TSH normal. Continue home Synthroid. ? Pulmonary arterial hypertension: Stable. Continue home sildenafil 80 mg 3 times daily and Tyvaso. ? CAD s/p stenting, hypertension, hyperlipidemia: Continue home Brilinta, diltiazem, Lasix and potassium supplement. ? GERD: Stable. Continue home PPI. ? History of TIA/CVA: Continue home Brilinta. ? Aortic valve stenosis s/p TAVR ? History of tubulovillous adenoma of colon s/p colectomy ? History of lung cancer s/p RLL lobectomy ? 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 Physical Exam Narrative Seen and examined. No change. Complain of pain only on movement otherwise no significant pain while sitting. No fever. She is moving her bowels every day, today also. Physical exam General: Alert, Oriented x3, Cooperative HEENT: Hard of hearing. Atraumatic, PERRLA, EOMI, Normocephalic Oral: No Gingival or Mucosal Lesions/ Ulcerations Neck: Supple, No JVD, Negative Carotid Bruits Chest wall/Lungs: Air entry diminished in bilateral lung bases. No crepitation/rhonchi Cardiovascular: Regular rate, Regular Rhythm, Normal S1, Normal S2, No M/G/R Abdomen: Bowel Sounds Present, Soft, Non Tender, Non-Distended : No dysuria. No renal angle tenderness. No suprapubic tenderness. Extremities: No edema, Capillary Refill Less than 3 Seconds Skin: No rashes, No breakdown Musculoskeletal: Mild tenderness present over left pubic rami. No acute tenderness to Palpation of other joints or Extremities Neurological: Cranial nerves II-XII grossly intact, DTR 2+/4. No acute focal neurological deficit. Psych/Mental Status: Normal Affect, Appropriate. Weight / BMI Weight Weight: 56.8 kg Body Mass Index (BMI) 25.2 ABG / Lab / Microbiology Data 09/10/23 05:00 09/10/23 05:00 Meaningful Use Info Meaningful Use Meaningful Use Diagnoses (Choose all that apply): None applicable Ischemic Stroke Statin Dosing Therapy Reference: STATIN DOSE THERAPY REFERENCE: * Patients > 75 years receive moderate or high dose statin therapy. * Patients 75 years or YOUNGER should receive HIGH intensity statin dose unless contraindicated. You will be required to document reason for non-treatment if statin daily dose does not meet guidelines. HIGH DOSE STATIN THERAPY DAILY Atorvastatin > than or = to 40 mg Rosuvastatin > than or = to 20 mg Amlodipine + Atorvastatin > than or = to 2.5/40 mg Ezetimibe + Simvastatin 10/80 mg Simvastatin 80mg Discharge Plan Admission Admit Date/Time: 09/09/23 19:49 Primary Reason for Your Visit: Fall with pelvic fracture Attending Provider: Jose Francisco Baker Primary Care Provider: Meli Gómez Consulting Providers: Antwan Saba; Moreno Morel Discharge Orders/Prescriptions Prescriptions: Continued omeprazole 20 mg capsule,delayed release(DR/EC) 20 mg PO DAILY Incruse Ellipta 62.5 mcg/actuation blister with device 1 inh INHALATION DAILY PreserVision AREDS-2 [id number] gl-sfsq-fm-mg capsule 1 tab PO BID cholecalciferol (vitamin D3) 125 mcg (5,000 unit) capsule 125 mcg PO MOTUWETHFR Brilinta 90 mg tablet 90 mg PO BID docusate sodium 100 mg capsule 100 mg PO QHS Calcium 600 + D(3) 600 mg-5 mcg (200 unit) capsule 1 cap PO QAM Adult 50 Plus Probiotic 4 billion cell capsule 4,000 mmu cells PO BID Rx Instructions: administer with a meal guaifenesin [Mucinex] 600 mg tablet extended release 12hr 1,200 mg PO DAILY fluticasone furoate-vilanterol [Breo Ellipta] 200-25 mcg/dose blister with device 1 inh inhalation DAILY celecoxib [Celebrex] 200 mg capsule 200 mg PO DAILY potassium chloride 20 mEq tablet extended release 40 meq PO DAILY furosemide 40 mg tablet 40 mg PO QODAY levothyroxine 112 mcg tablet 112 mcg PO QHS albuterol sulfate 90 mcg/actuation HFA aerosol inhaler 2 puff inhalation 4X/DAY PRN (Reason: COPD) Patient Comments: LUNGS trazodone 50 mg tablet 100 mg PO QHS cetirizine 10 MG capsule 10 mg PO DAILY Tyvaso DPI 64 mcg cartridge with inhaler 64 mcg inhalation Q6H Patient Comments: will drop her blood pressure furosemide 80 mg tablet 80 mg PO QODAY levothyroxine [Euthyrox] 112 mcg tablet 224 mcg PO .qosu Rx Instructions: every other monday potassium chloride [K-Tab] 20 mEq tablet extended release 20 meq PO QHS potassium chloride [K-Tab] 20 mEq tablet extended release 20 meq PO .qohs sildenafil (pulm.hypertension) 20 mg tablet 80 mg PO TID prednisone 10 mg tablet PO DAILY diltiazem HCl 180 mg capsule,extended release 24 hr 180 mg PO DAILY Qty: 30 6RF No Action acetaminophen 500 mg tablet 1,000 mg PO QAM Referrals / Follow Up: Fast,Meli, DO [Primary Care Provider] - Disposition Disposition (needs filled in before D/C Order can be placed): Half-Way Facility Charges/Coding Visit Charges Inpatient E&M: 41174 Disch Hosp >30min
--- NOTE | 2023-09-13 12:55 | TREXTCAR_ITS ---
Diet Diet Order/Speech Therapy: 09/12/23 17:45 Diet: Regular - No Added Salt Food consistency:: Regular Liquid Consistency:: Regular/Thin Is pt able to select menu?: Yes Routine Orders/Code Status O2 Liters per Minute: 5 O2 Frequency: Continuous Keep PO Greater than or Equal to (%): 90 Code Status: DNRCC-A (DO NOT INTUBATE) Therapies Weight Bearing: Full weight bearing Extremity Affected:: Bilateral Lower Physical Therapy: Eval and Treat Occupational Therapy: Eval and Treat Problem/Diagnosis (1) Fall: Status: Acute Code(s): W19.XXXA - Unspecified fall, initial encounter (2) Closed fracture of pubic ramus: Status: Acute Code(s): S32.599A - Other specified fracture of unspecified pubis, initial encounter for closed fracture Plan Patient is an 88-year-old female who presented to [facility] ED on 09/09/2023 with left sided pelvic pain after a fall at home. Hospital course as noted below. Discharged to TCU in stable condition on 09/12. 1. Left superior and inferior pubic rami fractures secondary to mechanical fall with acute on chronic debility, history of osteoarthritis s/p bilateral total knee replacement ? PT/OT/case management followed. Lives alone in one-story home with basement stair lift; was independent with ADLs prior to this fall. Continue Tylenol for pain management. Discharged to [facility] TCU in stable condition on 09/12. 2. COPD with chronic hypoxic respiratory failure on 5 L nasal cannula at baseline ? Stable on home 5 L of cannula during hospitalization. Continue home inhalers. Chronic medical conditions: ? History of tobacco abuse: Quit in 2009. Encouraged continued cessation. ? Hypothyroidism: TSH normal. Continue home Synthroid. ? Pulmonary arterial hypertension: Stable. Continue home sildenafil 80 mg 3 times daily and Tyvaso. ? CAD s/p stenting, hypertension, hyperlipidemia: Continue home Brilinta, diltiazem, Lasix and potassium supplement. ? GERD: Stable. Continue home PPI. ? History of TIA/CVA: Continue home Brilinta. ? Aortic valve stenosis s/p TAVR ? History of tubulovillous adenoma of colon s/p colectomy ? History of lung cancer s/p RLL lobectomy ? 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 Allergies/Procedures Done in Hospital Allergies morphine Allergy (Verified 09/09/23 17:46) UNCONTROLLED BEHAVIOR DANISH Inhibitors Adverse Reaction (Intermediate, Verified 09/09/23 17:46) cough ipratropium Adverse Reaction (Intermediate, Verified 09/09/23 17:46) PASSING OUT Procedures: - (Hip/pelvis x-ray) Type of Care/Length of Stay Estimated LOS: Convalescent Care Less Than 30 days Type of Care Needed: Skilled Rehab Potential: Fair Prognosis: Fair Additional Orders/Day of Discharge H&P will serve as current which was dated: 09/09/23 Day of Discharge: 09/13/23 Discharge Plan Admission Admit Date/Time: 09/09/23 19:49 Primary Reason for Your Visit: Fall with pelvic fracture Attending Provider: Jose Francisco Baker Primary Care Provider: Meli Gómez Consulting Providers: Antwan Saba; Moreno Morel Discharge Orders/Prescriptions Prescriptions: Continued omeprazole 20 mg capsule,delayed release(DR/EC) 20 mg PO DAILY Incruse Ellipta 62.5 mcg/actuation blister with device 1 inh INHALATION DAILY PreserVision AREDS-2 [id number] cx-dses-pc-mg capsule 1 tab PO BID cholecalciferol (vitamin D3) 125 mcg (5,000 unit) capsule 125 mcg PO MOTUWETHFR Brilinta 90 mg tablet 90 mg PO BID docusate sodium 100 mg capsule 100 mg PO QHS Calcium 600 + D(3) 600 mg-5 mcg (200 unit) capsule 1 cap PO QAM Adult 50 Plus Probiotic 4 billion cell capsule 4,000 mmu cells PO BID Rx Instructions: administer with a meal guaifenesin [Mucinex] 600 mg tablet extended release 12hr 1,200 mg PO DAILY fluticasone furoate-vilanterol [Breo Ellipta] 200-25 mcg/dose blister with device 1 inh inhalation DAILY celecoxib [Celebrex] 200 mg capsule 200 mg PO DAILY potassium chloride 20 mEq tablet extended release 40 meq PO DAILY furosemide 40 mg tablet 40 mg PO QODAY levothyroxine 112 mcg tablet 112 mcg PO QHS albuterol sulfate 90 mcg/actuation HFA aerosol inhaler 2 puff inhalation 4X/DAY PRN (Reason: COPD) Patient Comments: LUNGS trazodone 50 mg tablet 100 mg PO QHS cetirizine 10 MG capsule 10 mg PO DAILY Tyvaso DPI 64 mcg cartridge with inhaler 64 mcg inhalation Q6H Patient Comments: will drop her blood pressure furosemide 80 mg tablet 80 mg PO QODAY levothyroxine [Euthyrox] 112 mcg tablet 224 mcg PO .qosu Rx Instructions: every other monday potassium chloride [K-Tab] 20 mEq tablet extended release 20 meq PO QHS potassium chloride [K-Tab] 20 mEq tablet extended release 20 meq PO .qohs sildenafil (pulm.hypertension) 20 mg tablet 80 mg PO TID prednisone 10 mg tablet PO DAILY diltiazem HCl 180 mg capsule,extended release 24 hr 180 mg PO DAILY Qty: 30 6RF No Action acetaminophen 500 mg tablet 1,000 mg PO QAM Referrals / Follow Up: Fast,Meli, DO [Primary Care Provider] - Disposition Disposition (needs filled in before D/C Order can be placed): Long-Term Facility (1) Fall Qualifiers: Encounter type: initial encounter Qualified Code(s): W19.XXXA - Unspecified fall, initial encounter (2) Closed fracture of pubic ramus Qualifiers: Encounter type: initial encounter Laterality: left Qualified Code(s): S32.592A - Other specified fracture of left pubis, initial encounter for closed fracture
--- NOTE | 2023-09-13 14:40 | CASEMGMT ---
Social Work- Pt is medically ready for dicharge. TCU accepted. Pt and pt son advised. SW faxed discharge and med list to TCU. Bedside nurse notified. MEHDI Serra
[2023-09-13 14:48] VITALS: BP 129/70; PULSE 81; RESP 18; TEMP 36.4; O2SAT 90
--- NOTE | 2023-09-13 14:58 | PHA.DC.MR.R ---
Pharmacy [facility] Med Reconciliation Pharmacy Service has performed discharge medication reconciliation for this patient. The patient's discharge medication list was reviewed for discrepancies and discrepancies were resolved. Medications at Discharge Home Medications omeprazole 20 mg capsule,delayed release 20 mg PO DAILY GERD 06/26/18 umeclidinium 62.5 mcg/actuation blister powder for inhalation (Incruse Ellipta) 1 inh inhalation DAILY COPD 06/26/18 vit C 250 mg-vit E 90 mg-zinc 40 mg-copper 1 jx-usazrq-hvsjol capsule (PreserVision AREDS-2) 1 tab PO BID SUPPLEMENT 06/26/18 levothyroxine 112 mcg tablet 112 mcg PO QHS THYROID 06/27/18 cetirizine 10 mg capsule 10 mg PO DAILY allergies 09/20/19 albuterol sulfate 90 mcg/actuation aerosol inhaler 2 puff inhalation 4X/DAY PRN COPD 12/26/19 cholecalciferol (vitamin D3) 125 mcg (5,000 unit) capsule 125 mcg PO MOTUWETHFR supplement 08/24/20 ticagrelor 90 mg tablet (Brilinta) 90 mg PO BID blood 03/08/22 acetaminophen 500 mg tablet 1,000 mg PO QAM pain 06/07/22 calcium carbonate 600 mg-vitamin D3 5 mcg (200 unit) capsule (Calcium 600 + D(3)) 1 cap PO QAM supplement 06/07/22 docusate sodium 100 mg capsule 100 mg PO QHS stool softener 06/07/22 fluticasone furoate 200 mcg-vilanterol 25 mcg/dose inhalation powder (Breo Ellipta) 1 inh inhalation DAILY copd 06/07/22 guaifenesin 600 mg tablet, extended release 12 hr (Mucinex) 1,200 mg PO DAILY cough 06/07/22 lactobacillus combination no.9 4 billion cell capsule (Adult 50 Plus Probiotic) 4,000 mmu cells PO BID colon health 06/07/22 treprostinil 64 mcg cartridge with inhaler (Tyvaso DPI) 64 mcg inhalation Q6H breathing 01/07/23 celecoxib 200 mg capsule (Celebrex) 200 mg PO DAILY 04/28/23 trazodone 50 mg tablet 100 mg PO QHS SLEEP 04/28/23 diltiazem HCl 180 mg capsule,24 hr,extended release 180 mg PO DAILY heart #30 caps 07/07/23 furosemide 40 mg tablet 40 mg PO QODAY 08/28/23 potassium chloride 20 mEq tablet,extended release 40 meq PO DAILY 08/28/23 furosemide 80 mg tablet 80 mg PO QODAY 09/09/23 levothyroxine 112 mcg tablet (Euthyrox) 224 mcg PO .qosu 09/09/23 potassium chloride 20 mEq tablet,extended release (K-Tab) 20 meq PO .qohs 09/09/23 potassium chloride 20 mEq tablet,extended release (K-Tab) 20 meq PO QHS 09/09/23 prednisone 10 mg tablet mg PO DAILY breathing 09/09/23 sildenafil (pulm.hypertension) 20 mg tablet 80 mg PO TID blood pressure 09/09/23
[2023-09-13] MEDS: Potassium Chloride Oral Tablet 20 MEQ PO (17:18)
== END 2023-09-13 18:28 | DRG 536 ==
LOC: ED 20:00 → MS3 20:06
PROVIDERS: Nurse Practitioner; Admitting Provider Internal Medicine; Emergency Provider Emergency Medicine; PCP Internal Medicine; Visit Provider Hospitalist
DX: S32.512A Fracture of superior rim of left pubis, initial encounter for closed fracture (principal); J96.11 Chronic respiratory failure with hypoxia; I27.21 Secondary pulmonary arterial hypertension; N18.30 Chronic kidney disease, stage 3 unspecified; J44.9 Chronic obstructive pulmonary disease, unspecified; S32.592A Other specified fracture of left pubis, initial encounter for closed fracture; I12.9 Hypertensive chronic kidney disease with stage 1 through stage 4 chronic kidney disease, or unspecified chronic kidney disease; E03.9 Hypothyroidism, unspecified; I35.0 Nonrheumatic aortic (valve) stenosis; I73.9 Peripheral vascular disease, unspecified; H35.30 Unspecified macular degeneration; E78.5 Hyperlipidemia, unspecified; I25.10 Atherosclerotic heart disease of native coronary artery without angina pectoris; K21.9 Gastro-esophageal reflux disease without esophagitis; W18.09XA Striking against other object with subsequent fall, initial encounter; Y93.01 Activity, walking, marching and hiking; Z99.81 Dependence on supplemental oxygen; Z79.02 Long term (current) use of antithrombotics/antiplatelets; Z79.52 Long term (current) use of systemic steroids; Z79.1 Long term (current) use of non-steroidal anti-inflammatories (NSAID); Z79.51 Long term (current) use of inhaled steroids; Z79.899 Other long term (current) drug therapy; Z87.891 Personal history of nicotine dependence; Z95.2 Presence of prosthetic heart valve; Z95.5 Presence of coronary angioplasty implant and graft
CPT/HCPCS: 36415; 73502; 80048; 80053; 83735; 83880; 84100; 84443; 85025; 94668; 97110; 97116; 97162; 97166; 97530; 97535; 99284; J7030; A4216

== ENCOUNTER 2023-09-13 18:33 | Inpatient (IN) | payer MEDICARE, OTHER, SELFPAY ==
[2023-09-13 18:49] VITALS: BP 122/69; PULSE 68; RESP 18; TEMP 37.1; O2SAT 93; BMI 24.6
--- NOTE | 2023-09-13 20:24 | HP.PCM_ITS ---
HPI - General General Date of Admission: 09/13/23 Date of Service: 09/14/23 Chief Complaint: Here for rehabilitation. HPI Narrative 09/09/2023 AYAD BA, is a 88 Female who presents to [facility] ED with lower extremity injury. COPD, chronic 5 liters oxygen per nasal cannula. Lives alone, usually walks with walker or cane. Tripped over oxygen tubing, fell. Unable to get up, called EMS. Left groin pain. X-ray showed left pelvis fracture. Creatinine 1.13. 09/09/[address] [facility]. Tylenol, Percocet, PT/OT for left pelvic fracture. 09/10/2023 Pain with movement. PT/OT. Laxatives for constipation. 09/11/2023 Pain only with movement. PT/OT, moved bowels. 09/12/2023 Pain only with movement, BM's daily. [facility]. 09/13/2023 Admit to TCU with debility, here for rehabilitation, strengthening, prior to discharge home alone. [facility] Medical History (Updated 09/13/23 @ 20:[address] Seb Khan MD) SANCHEZ (dyspnea on exertion) Hypoxia Dissecting aneurysm of thoracic aorta, [place] type A (02/28/22) Atherosclerosis of coronary artery without angina pectoris History of lung cancer Dyspnea Tubulovillous adenoma of colon Non-rheumatic aortic stenosis Secondary pulmonary arterial hypertension CRF (chronic renal failure) Osteoarthritis Hypothyroidism COPD (chronic obstructive pulmonary disease) Hyperlipidemia Macular degeneration Essential hypertension Occlusion and stenosis of bilateral carotid arteries PVD (peripheral vascular disease) GERD (gastroesophageal reflux disease) Personal history of transient ischemic attack (TIA), and cerebral infarction without residual deficits Pneumonia Seasonal allergies Home Medications ?Medication ?Instructions ?Recorded ?Last Taken ?Type omeprazole 20 mg capsule,delayed 20 mg PO DAILY GERD 06/26/18 09/13/23 09:25 History release umeclidinium 62.5 mcg/actuation 1 inh inhalation DAILY COPD 06/26/18 Unknown History blister powder for inhalation (Incruse Ellipta) vit C 250 mg-vit E 90 mg-zinc 40 1 tab PO BID SUPPLEMENT 06/26/18 09/13/23 09:25 History mg-copper 1 [id number] capsule (PreserVision AREDS-2) levothyroxine 112 mcg tablet 112 mcg PO QHS THYROID 06/27/18 09/12/23 History cetirizine 10 mg capsule 10 mg PO DAILY allergies 09/20/19 09/13/23 09:25 History albuterol sulfate 90 mcg/actuation 2 puff inhalation 4X/DAY PRN COPD 12/26/19 Unknown History aerosol inhaler cholecalciferol (vitamin D3) 125 125 mcg PO MOTUWETHFR supplement 08/24/20 09/13/23 09:25 History mcg (5,000 unit) capsule ticagrelor 90 mg tablet (Brilinta) 90 mg PO BID blood press 03/08/22 09/13/23 09:25 History acetaminophen 500 mg tablet 1,000 mg PO QAM pain 06/07/22 Unknown History calcium carbonate 600 mg-vitamin 1 cap PO QAM supplement 06/07/22 09/13/23 09:25 History D3 5 mcg (200 unit) capsule (Calcium 600 + D(3)) docusate sodium 100 mg capsule 100 mg PO QHS stool softener 06/07/22 09/10/23 History fluticasone furoate 200 1 inh inhalation DAILY copd 06/07/22 Unknown History mcg-vilanterol 25 mcg/dose inhalation powder (Breo Ellipta) guaifenesin 600 mg tablet, 1,200 mg PO DAILY cough 06/07/22 09/13/23 09:25 History extended release 12 hr (Mucinex) lactobacillus combination no.9 4 4,000 mmu cells PO BID colon health 06/07/22 09/13/23 09:25 History billion cell capsule (Adult 50 Plus Probiotic) treprostinil 64 mcg cartridge with 64 mcg inhalation Q6H breathing 01/07/23 09/13/23 12:50 History inhaler (Tyvaso DPI) celecoxib 200 mg capsule (Celebrex) 200 mg PO DAILY Pain 04/28/23 09/13/23 09:25 History trazodone 50 mg tablet 100 mg PO QHS SLEEP 04/28/23 09/12/23 History diltiazem HCl 180 mg capsule,24 180 mg PO DAILY heart #30 caps 07/07/23 09/13/23 09:25 Rx hr,extended release furosemide 40 mg tablet 40 mg PO QODAY Heart 08/28/23 09/13/23 09:25 History potassium chloride 20 mEq 40 meq PO DAILY Supplement 08/28/23 09/13/23 09:25 History tablet,extended release furosemide 80 mg tablet 80 mg PO QODAY Heart 09/09/23 09/12/23 10:25 History levothyroxine 112 mcg tablet 224 mcg PO .qosu Thyroid 09/09/23 08/20/23 History (Euthyrox) potassium chloride 20 mEq 20 meq PO .qohs Supplement 09/09/23 09/12/23 History tablet,extended release (K-Tab) potassium chloride 20 mEq 20 meq PO QHS Supplement 09/09/23 09/12/23 History tablet,extended release (K-Tab) prednisone 10 mg tablet 20 mg PO DAILY breathing 09/09/23 09/08/23 09:00 History 30 mg sildenafil (pulm.hypertension) 20 80 mg PO TID blood pressure 09/09/23 09/13/23 12:50 History mg tablet Allergy/AdvReac Type Severity Reaction Status Date / Time morphine Allergy UNCONTROLLED Verified 09/09/23 17:46 BEHAVIOR DANISH Inhibitors AdvReac Intermediate cough Verified 09/09/23 17:46 ipratropium AdvReac Intermediate PASSING OUT Verified 09/09/23 17:46 Family History Mother Liver failure Brother Myasthenia gravis Pacemaker Sister CAD (coronary artery disease) CABG x 4 CVA (cerebral vascular accident) Father Colon cancer Surgical History History of right heart catheterization (RHC) (07/22/22) History of transcatheter aortic valve replacement (TAVR) (04/04/22) History of coronary artery stent placement (02/28/22) History of right and left heart catheterization (02/08/19) History of colectomy (09/2018) History of colonoscopy (08/09/18) History of lobectomy of lung History of tubal ligation History of tonsillectomy History of cholecystectomy (2009) History of cataract extraction History of total left knee replacement lung cancer 2012 rll lobectemy Status post total right knee replacement Social History household members: none Smoking Status: Former smoker how long ago did patient quit smokin years ago alcohol intake: current alcohol intake frequency: holidays/special occasions only Alcohol type: wine caffeine: Yes Type: coffee Number of servings: 2 ROS Constitutional Constitutional: Reports fatigue and weakness; Denies chills, fever(s) or weight gain ENT HEENT: Denies headache(s), nasal congestion or nasal discharge Cardiovascular Cardiovascular: Denies chest pain or palpitations Respiratory/Chest Respiratory/Chest: Reports cough, dyspnea on exertion and shortness of breath with exertion; Denies excessive phlegm production Gastrointestinal Gastrointestinal: Denies abdominal pain, nausea or vomiting Genitourinary Genitourinary: Denies dysuria Musculoskeletal Musculoskeletal: Denies joint pain or joint swelling Integumentary Integumentary: Denies rash or wounds Neurologic Neurologic: Denies focal weakness, numbness or tingling Psychiatric Psychiatric: Denies anxiety, auditory hallucinations, depression, homicidal ideation or suicidal ideation Vital Signs Vital Signs Vital Signs: 09/13/23 18:49 Temperature 98.7 F Temperature Source Temporal Pulse Rate 68 Respiratory Rate 18 Blood Pressure 122/69 H Blood Pressure Mean 86 Blood Pressure Source Monitor Blood Pressure Position Sitting Blood Pressure Location Right Arm Pulse Ox 93 Oxygen Delivery Method Nasal Cannula Oxygen Flow Rate (L/min) 6 Weight Weight: 57.153 kg Body Mass Index (BMI) 24.6 Physical Exam Const alert General Appearance: cooperative HEENT normocephalic Eyes PERRL and EOMs intact bilaterally Neck supple, no JVD and no carotid bruits Resp normal respiratory effort, normal air movement and clear to auscultation bilaterally Auscultation: rhonchi and wheezes Cardio regular rate and regular rhythm GI normal to inspection, nondistended, normoactive bowel sounds, non-tender and non-distended Extremity normal capillary refill General Extremity: Negative for edema Skin no rashes or lesions noted General Skin Exam: no breakdown Psych affect normal Appearance: appropriate Results Lab / Micro Data 09/14/23 05:21 09/14/23 05:21 Assessment & Plan Assessment/Plan (1) Debility: (2) Fall: QUALIFIERS: Encounter type: initial encounter Qualified Code(s): W19.XXXA - Unspecified fall, initial encounter (3) Fracture of left pelvis: (4) COPD (chronic obstructive pulmonary disease): QUALIFIERS: COPD type: unspecified COPD Qualified Code(s): J44.9 - Chronic obstructive pulmonary disease, unspecified (5) Aortic stenosis: (6) Coronary artery disease: (7) GERD (gastroesophageal reflux disease): (8) Hypothyroidism: (9) Allergic rhinitis: (10) Pulmonary hypertension: (11) Osteoarthritis: (12) Insomnia: (13) History of lung cancer: PLAN: Plan 88 year old female with below past medical history hospitalized for fall, left pelvic fracture, admitted to TCU with debility, here for rehabilitation, strengthening, prior to discharge home alone. * Debility - PT/OT. * Pain - Tylenol 1000mg q6 prn pain (1-10). * Bowel - Colace 100mg qhs. * Adult immunization - Administer pneumonia vaccine, covid vaccine, flu vaccine as appropriate. * DVT prophylaxis - Lovenox 40mg sc daily. * COPD - Fluticasone/Salmeterol 232-14mg 1 puff q12h, Incruse 1 puff daily, Albuterol mdi 2 puffs 4x/day prn, Prednisone 10mg daily. * Calcium deficiency - Calcium D 1 tablet daily. * Osteoarthritis - Celebrex 200mg daily. * Vitamin D deficiency - D3 125mcg daily 5 days/week. * Hypertension - Diltiazem 180mg daily. * Edema - Lasix 40mg/80mg alternating. * Congestion - Mucinex 1200mg daily. * GI prophylaxis - Lactobacillus 1 capsule bidcm. * Hypothyroidism - Levothyroxine 112mcg qhs, 224mcg q14 days. * Allergic rhinitis - Loratadine 10mg daily. * Macular degeneration - Healthy Eyes 1 cap bid. * GERD - Pantoprazole 20mg daily. * Hypokalemia - KCL 40meq qam, 20meq qhs. * Pulmonary HTN - Sildenafil 80mg tid, Tyvaso 64mcg inhaled q6. * Coronary artery disease - Brilinta 90mg bid. * Insomnia - Trazodone 100mg qhs, stable chronic machine long goods helper use, GDR not recommended.
--- NOTE | 2023-09-13 21:06 | NURSING ---
Consulted Dr. Khan via phone call, New order for Tyvaso Q4 hours up to 4 times a day PRN. Telephone order read back to Dr. Khan, verified.
[2023-09-13] MEDS: Docusate Sodium 100 MG Capsule PO (22:07)
[2023-09-13] MEDS: TICAGRELOR 90 MG TABLET PO (22:08)
[2023-09-13] MEDS: Multivitamin (Healthy Eyes) Capsule 1 CAP PO (22:08)
[2023-09-13] MEDS: Potassium Chloride Oral Tablet 20 MEQ PO (22:09)
[2023-09-13] MEDS: SILDENAFIL CITRATE 20 MG TABLET 80 MG PO (22:10)
[2023-09-13] MEDS: traZODone 100 MG Tablet PO (22:10)
[2023-09-13] MEDS: Levothyroxine 112 MCG Tablet PO (22:11)
[2023-09-13] MEDS: Albuterol IH (6.7 GM) 1 PUFF INHALER 2 PUFF INHALATION (22:14)
[2023-09-13] MEDS: 0.9% Saline Lock 10 ML Syringe IV (22:20)
[2023-09-13] MEDS: Fluticasone/Salmeterol 232-14 Inhaler 1 PUFF INHALATION (22:23)
[2023-09-13 22:32] VITALS: BP 112/72; PULSE 80; O2SAT 93
[2023-09-13] MEDS: Acetaminophen 500 MG Tablet 1000 MG PO (22:43)
[2023-09-13] MEDS: TREPROSTINIL 64 MCG CART.INHAL INHALATION (22:49)
[2023-09-14] MEDS: SILDENAFIL CITRATE 20 MG TABLET 80 MG PO ×3 (05:57→19:57)
[2023-09-14 06:21] LABS: Absolute Lymphocyte Count 1.17 X10^3/uL (0.83-4.51); Absolute Neutrophil Count 11.7 X10^3/uL (2.0-7.7); Basophil# 0.04 X10^3/uL; Basophil% 0.3 % (0-1); Eosinophil# 0.17 X10^3/uL; Eosinophils% 1.2 % (0-5); Hematocrit 35.9 % (37-47); Hemoglobin 11.4 g/dL (12.0-15.0); Lymphocyte # 1.17 X10^3/ul (0.83-4.51); Lymphocyte % 8.3 % (19-41); Mean Corp Hgb Conc 31.8 g/dL (32-36); Mean Corpuscular Hgb 29.4 pg (27.0-32.0); Mean Corpuscular Volume 92.5 fL (81-99); Mean Platelet Vol. 11.7 fl (6.2-12.0); Monocyte% 6.4 % (0-10); NRBC Flagged by Analyzer 0 % (0-5); Neutrophil # 11.74 X10^3/uL (2.7-7.7); Neutrophil % 83.1 % (47-70); Platelet Count 224 K/mm3 (150-450); RBC Distribution Width CV 19.4 % (11.6-14.6); RBC Distribution Width SD 64.4 fl (35.1-43.9); Red Blood Count 3.88 M/mm3 (4.2-5.4); White Blood Count 14.1 K/mm3 (4.4-11.0)
[2023-09-14 06:45] LABS: Anion Gap 8 (5-15); BUN 31 mg/dL (7-18); BUN/Creat Ratio 43.1 RATIO (10-20); Calcium,Total 9.1 mg/dL (8.5-10.1); Chloride 100 mmol/L (98-107); Creatinine, Serum 0.72 mg/dL (0.55-1.02); EST Glomerular Filtration Rate 81 mL/min (>60); Est Glom Filt Rate - Afr Amer 98 mL/min (>60); Estimated Creatinine Clearance 37.75 ml/min; Glucose 93 mg/dL (74-106); Potassium 4.2 mmol/L (3.5-5.1); Sodium Level 135 mmol/L (136-145)
[2023-09-14] MEDS: Acetaminophen 500 MG Tablet 1000 MG PO ×4 (07:48→23:48)
[2023-09-14] MEDS: Celecoxib 200 MG Capsule PO (08:27)
[2023-09-14] MEDS: Loratadine 10 MG Tablet PO (08:27)
[2023-09-14] MEDS: TICAGRELOR 90 MG TABLET PO ×2 (08:27→19:53)
[2023-09-14] MEDS: Cholecalciferol (Vit D3) 125 MCG CAPSULE (5,000 UNITS) PO (08:27)
[2023-09-14] MEDS: Multivitamin (Healthy Eyes) Capsule 1 CAP PO ×2 (08:27→19:55)
[2023-09-14] MEDS: Potassium Chloride Oral Tablet 20 MEQ 40 MEQ PO (08:28)
[2023-09-14] MEDS: Calcium Carb/Vitamin D 1 TABLET Tablet PO (08:28)
[2023-09-14] MEDS: Pantoprazole Sodium 20 MG Tablet PO (08:28)
[2023-09-14] MEDS: guaiFENesin 1,200 MG Tablet 1200 MG PO (08:29)
[2023-09-14] MEDS: predniSONE 10 MG Tablet PO (08:29)
[2023-09-14] MEDS: Furosemide 80 MG Tablet PO (08:30)
[2023-09-14] MEDS: dilTIAZem CD 180 MG Capsule PO (08:30)
[2023-09-14] MEDS: Lactobacillis Acidophilus 1 CAP PO ×2 (08:30→17:08)
[2023-09-14] MEDS: Umeclidinium Bromide Inhaler 1 PUFF INHALATION (08:31)
[2023-09-14] MEDS: Fluticasone/Salmeterol 232-14 Inhaler 1 PUFF INHALATION ×2 (08:31→19:50)
[2023-09-14] MEDS: Albuterol IH (6.7 GM) 1 PUFF INHALER 2 PUFF INHALATION ×4 (08:38→23:32)
[2023-09-14] MEDS: TREPROSTINIL 64 MCG CART.INHAL INHALATION ×4 (08:42→23:33)
[2023-09-14 08:47] VITALS: BP 138/73; PULSE 72
[2023-09-14 09:23] VITALS: O2SAT 91
--- NOTE | 2023-09-14 10:19 | PCM.PN.DRR ---
TCU RX Drug Regimen Review Subjective/Objective Subjective/Objective: Subjective: 88 TOF admitted to TCU 09/13/23 s/p hospitalization at [facility] secondary to a fall after tripping over her oxygen tubing. Patient found to have a L pelvic fracture. Patient admitted to TCU for strengthening and rehabilitation prior to discharge home where she currently resides alone. Objective: Allergies morphine Allergy (Verified 09/09/23 17:46) UNCONTROLLED BEHAVIOR DANISH Inhibitors Adverse Reaction (Intermediate, Verified 09/09/23 17:46) cough ipratropium Adverse Reaction (Intermediate, Verified 09/09/23 17:46) PASSING OUT Current Medications Generic Name Dose Route Start Last Admin Trade Name Freq PRN Reason Stop Dose Admin Acetaminophen 1,000 mg 09/13/23 20:42 09/13/23 22:43 Acetaminophen 500 Mg Tablet PO 1,000 mg Q6H PRN PRN Administration Pain Score 1-10 Acetaminophen 1,000 mg 09/14/23 07:30 09/14/23 07:48 Acetaminophen 500 Mg Tablet PO 1,000 mg 0730,2130 RUMA Administration Albuterol Sulfate 2 puff 09/13/23 19:16 09/14/23 08:38 Albuterol Ih (6.7 Gm) 1 Puff Inhaler INHALATION 2 puff 4X/DAY PRN Administration COPD/ SOB Calcium/Vitamin D 1 tablet 09/14/23 08:00 09/14/23 08:28 Calcium Carb/Vitamin D 1 Tablet Tablet PO 1 tablet DAILYCM RUMA Administration Celecoxib 200 mg 09/14/23 10:00 09/14/23 08:27 Celecoxib 200 Mg Capsule PO 200 mg DAILY RUMA Administration Cholecalciferol 125 mcg 09/14/23 10:00 09/14/23 08:27 Cholecalciferol (Vit D3) 125 Mcg Capsule (5,000 Units) PO 125 mcg MOTUWETHFR RUMA Administration Diltiazem HCl 180 mg 09/14/23 10:00 09/14/23 08:30 Diltiazem Cd 180 Mg Capsule PO 180 mg DAILY RUMA Administration Docusate Sodium 100 mg 09/13/23 22:00 09/13/23 22:07 Docusate Sodium 100 Mg Capsule PO 100 mg QHS RUMA Administration Furosemide 40 mg 09/15/23 10:00 Furosemide 40 Mg Tablet PO QODAY [facility]–1983 Protocol Furosemide 80 mg 09/14/23 10:00 09/14/23 08:30 Furosemide 80 Mg Tablet PO 80 mg QODAY RUMA Administration Protocol Guaifenesin 1,200 mg 09/14/23 10:00 09/14/23 08:29 Guaifenesin 1,200 Mg Tablet PO 1,200 mg DAILY RUMA Administration Levothyroxine Sodium 112 mcg 09/13/23 22:00 09/13/23 22:11 Levothyroxine 112 Mcg Tablet PO 112 mcg QHS RUMA Administration Levothyroxine Sodium 112 mcg 09/17/23 22:00 Levothyroxine 112 Mcg Tablet PO Q14D RUMA Loratadine 10 mg 09/14/23 10:00 09/14/23 08:27 Loratadine 10 Mg Tablet PO 10 mg DAILY RUMA Administration Multivitamins/Minerals 1 cap 09/13/23 22:00 09/14/23 08:27 Multivitamin (Healthy Eyes) Capsule PO 1 cap BID RUMA Administration Pantoprazole Sodium 20 mg 09/14/23 10:00 09/14/23 08:28 Pantoprazole Sodium 20 Mg Tablet PO 20 mg DAILY RUMA Administration Potassium Chloride 40 meq 09/14/23 08:00 09/14/23 08:28 Potassium Chloride Oral Tablet 20 Meq PO 40 meq DAILYCM RUMA Administration Potassium Chloride 20 meq 09/13/23 22:00 09/13/23 22:09 Potassium Chloride Oral Tablet 20 Meq PO 20 meq QHS RUMA Administration Potassium Chloride 20 meq 09/14/23 22:00 Potassium Chloride Oral Tablet 20 Meq PO Q48H RUMA Prednisone 10 mg 09/14/23 10:00 09/14/23 08:29 Prednisone 10 Mg Tablet PO 10 mg 1000 RUMA Administration Fluticasone/Salmeterol 1 puff 09/13/23 22:00 09/14/23 08:31 Fluticasone/Salmeterol 232-14 Inhaler INHALATION 1 puff Q12 RUMA Administration Sildenafil Citrate 80 mg 09/13/23 22:00 09/14/23 05:57 Sildenafil Citrate 20 Mg Tablet PO 80 mg TID RUMA Administration Sodium Chloride 10 - 40 ml 09/13/23 18:50 09/13/23 22:20 0.9% Saline Lock 10 Ml Syringe IV 10 ml UD PRN Administration SALINE FLUSH Sodium Chloride 2 spray 09/14/23 07:45 Sodium Chloride 0.65% 1 Patton Patton.Btl NASAL TID PRN PRN NASAL DRYNESS Ticagrelor 90 mg 09/13/23 22:00 09/14/23 08:27 Ticagrelor 90 Mg Tablet PO 90 mg BID RUMA Administration Trazodone HCl 100 mg 09/13/23 22:00 09/13/23 22:10 Trazodone 100 Mg Tablet PO 100 mg QHS RUMA Administration Tuberculin PPD 0.1 ml 09/22/23 10:00 Tuberculin,Purif.Prot.Deriv. 50 Tu/Ml Vial ID 09/22/23 10:01 X1 ONE Tuberculin PPD 0.1 ml 09/15/23 10:00 Tuberculin,Purif.Prot.Deriv. 50 Tu/Ml Vial ID 09/15/23 10:01 X1 ONE Umeclidinium [place] 1 puff 09/14/23 10:00 09/14/23 08:31 Umeclidinium [place] Inhaler INHALATION 1 puff DAILY RUMA Administration Problem List Insomnia (Acute) Osteoarthritis (Acute) Pulmonary hypertension (Acute) Allergic rhinitis (Acute) Hypothyroidism (Acute) GERD (gastroesophageal reflux disease) (Acute) Coronary artery disease (Acute) Aortic stenosis (Acute) Fracture of left pelvis (Acute) Debility (Acute) Fall (Acute) COPD (chronic obstructive pulmonary disease) (Chronic) Vital Signs Temp Pulse Resp BP Pulse Ox O2 Del Method O2 Flow Rate 98.7 F 72 18 138/73 H 91 Nasal Cannula 6 09/13/23 18:49 09/14/23 08:47 09/13/23 18:49 09/14/23 08:47 09/14/23 09:23 09/13/23 22:32 09/14/23 09:23 Oxygen Flow Rate (L/min) 6 Oxygen Delivery Method Nasal Cannula Weight: 57.153 kg Body Mass Index (BMI) 24.6 Sodium 135 mmol/L (136-145) L 09/14/23 05:21 Potassium 4.2 mmol/L (3.5-5.1) 09/14/23 05:21 Chloride 100 mmol/L (98-107) 09/14/23 05:21 Carbon Dioxide 27.0 mmol/L (21.0-32.0) 09/14/23 05:21 Anion Gap 8 (5-15) 09/14/23 05:21 BUN 31 mg/dL (7-18) H 09/14/23 05:21 Creatinine 0.72 mg/dL (0.55-1.02) 09/14/23 05:21 Est GFR (MDRD) Af Amer 98 mL/min (>60) 09/14/23 05:21 Est GFR (MDRD) Non-Af 81 mL/min (>60) 09/14/23 05:21 BUN/Creatinine Ratio 43.1 RATIO (10-20) H 09/14/23 05:21 Glucose 93 mg/dL (74-106) 09/14/23 05:21 Assessment/Plan: 1. Pain:Tylenol 1000mg PO BID and 1000mg PO Q6h PRN. Please continue to monitor for increased/decreased S/S pain, PRN medication usage. Please ensure patient is not using > 4000mg Tylenol in 24hrs. 2. COPD Exacerbation: Airduo 1 puff Q12h, Incruse 1 puff Daily, Albuterol inhaler 2 puff 4x/day PRN, Prednisone 10mg PO Daily. Please continue to monitor respiratory rate (last 18/min), heart rate (last 72 BPM), swelling, blood glucose, agitation/ insomnia. 3. Pulmonary Hypertension: Sildenafil 80mg PO TID, Tyvaso 64mcg inhaled 4x/day PRN. Please continue to monitor respiratory rate, BP (last 138/73), pulse (last 72), headache, edema. 4. CAD/ HTN: Diltiazem 180mg PO Daily, Brilinta 90mg PO BID. Please continue to monitor for bleeding/bruising, BP, pulse, H/H. 5. Edema/ Hypokalemia: Lasix 40mg and 80mg PO Daily alternating doses, KCl 40meq PO QAM and 20meq/40meq PO QHS alternating doses. Please continue to monitor renal function (last CrCl 37mL/min on 09/13), K level (last 4.2 on 09/13), fluid intake, pitting edema, s/s GI upset, N/V. 6. Hypothyroid: Synthroid 112mcg PO QHS and 224mcg PO Q14 days. Please continue to monitor TSH (1.43 on 09/10/23), S/S hyper/hypothyroid. 7. GERD: Protonix 20mg PO daily. Please continue to monitor for GI upset, headache, bloating. Please also encourage non-pharmacologic treatments to help minimize GERD exacerbations. 8. Osteoarthritis: Celebrex 200mg PO Daily. Please continue to monitor for GI upset, renal function, medication effectiveness. 9. Allergic Rhinitis/ congestion: Claritin 10mg PO Daily, Mucinex 1200mg PO Daily, Saline Nasal spray TID PRN. Please continue to monitor for medication effectiveness. Also encourage patient to stay hydrated while taking Mucinex to help with congestion. 10. General Wellness: Os-Cas+D 1 tab PO Daily, Vitamin D 125mcg PO 5x/week, Acidophilus 1 cap PO BID, Eye Vitamin 1 cap PO BID. 11. Bowel: Docusate 100mg PO QHS. Please continue to monitor for increased/decreased constipation and/or diarrhea. Assessment/Plan for indications treated with psychotropic medications: 1. Insomnia: trazodone 100mg PO QHS. Please consider a GDR by 02/2024 if clinically indicated, thank you. Medical chart and medication regimen reviewed. The following medication irregularities or issues were identified: 1. Patient is on Brilinta 90mg PO BID for CAD, but does not have an active aspirin order. Please add aspirin 81mg PO Daily to regimen while patient is taking Brilinta. If patient is not a good candidate for aspirin, please consider changing medication to Plavix if clinically indicated, thank you. Date Date of Note:: 09/14/23
--- NOTE | 2023-09-14 11:05 | NURSING ---
GAVE PT HOME MED SILDENAFIL TO PT SON STAN TO TAKE HOME.
--- NOTE | 2023-09-14 11:47 | NURSING ---
Environmental Geologist Note; Activity Asset: Complete Lilian was a resident w/us in 2015. Lilian is independent in her choice of daily activities., She will read, watch tv, us her tablet and visit w/family. She welcomes visits w/the rat culturist and therapy dog when available. Staff will remind her of weekly activities, encourage group and respect her right to say no.
[2023-09-14] MEDS: 0.9% Saline Lock 10 ML Syringe IV ×2 (13:37→19:47)
[2023-09-14 13:40] VITALS: PULSE 66; RESP 24; O2SAT 92
[2023-09-14 13:41] VITALS: BP 121/67; PULSE 66; RESP 24; TEMP 36.5; O2SAT 92
[2023-09-14 15:10] VITALS: O2SAT 92
[2023-09-14] MEDS: Potassium Chloride Oral Tablet 20 MEQ PO ×2 (19:56)
[2023-09-14] MEDS: traZODone 100 MG Tablet PO (19:58)
[2023-09-14] MEDS: Levothyroxine 112 MCG Tablet PO (19:59)
[2023-09-15] MEDS: SILDENAFIL CITRATE 20 MG TABLET 80 MG PO ×3 (06:25→21:40)
[2023-09-15 07:44] VITALS: BP 119/66; PULSE 79; RESP 19; TEMP 36.9; O2SAT 92
[2023-09-15] MEDS: Potassium Chloride Oral Tablet 20 MEQ 40 MEQ PO (07:49)
[2023-09-15] MEDS: Lactobacillis Acidophilus 1 CAP PO ×2 (07:49→17:23)
[2023-09-15] MEDS: Calcium Carb/Vitamin D 1 TABLET Tablet PO (07:49)
[2023-09-15] MEDS: Acetaminophen 500 MG Tablet 1000 MG PO ×3 (07:49→21:39)
[2023-09-15] MEDS: Loratadine 10 MG Tablet PO (07:50)
[2023-09-15] MEDS: TICAGRELOR 90 MG TABLET PO ×2 (07:50→21:40)
[2023-09-15] MEDS: Celecoxib 200 MG Capsule PO (07:50)
[2023-09-15] MEDS: dilTIAZem CD 180 MG Capsule PO (07:50)
[2023-09-15] MEDS: Fluticasone/Salmeterol 232-14 Inhaler 1 PUFF INHALATION ×2 (07:51→21:40)
[2023-09-15] MEDS: Multivitamin (Healthy Eyes) Capsule 1 CAP PO ×2 (07:51→21:40)
[2023-09-15] MEDS: Furosemide 40 MG Tablet PO (07:51)
[2023-09-15] MEDS: guaiFENesin 1,200 MG Tablet 1200 MG PO (07:51)
[2023-09-15] MEDS: Umeclidinium Bromide Inhaler 1 PUFF INHALATION (07:51)
[2023-09-15] MEDS: Cholecalciferol (Vit D3) 125 MCG CAPSULE (5,000 UNITS) PO (07:52)
[2023-09-15] MEDS: predniSONE 10 MG Tablet PO (07:52)
[2023-09-15] MEDS: Pantoprazole Sodium 20 MG Tablet PO (07:52)
[2023-09-15] MEDS: Albuterol IH (6.7 GM) 1 PUFF INHALER 2 PUFF INHALATION ×4 (08:20→21:41)
[2023-09-15] MEDS: TREPROSTINIL 64 MCG CART.INHAL INHALATION ×4 (08:26→21:41)
[2023-09-15] MEDS: Tuberculin,Purif.prot.deriv. 50 TU/ML Vial 0.1 ML ID (12:40)
--- NOTE | 2023-09-15 13:17 | NS ---
MST score = 1
[2023-09-15 14:16] VITALS: BP 107/55; PULSE 60
--- NOTE | 2023-09-15 14:53 | CASEMGMT ---
SW met with patient. Introduced self and role at [facility]. SW completed assessment with patient. SW verified patient's contacts and code status. Patient states DNRCCA-No intubation is correct. Patient wishes to return home at discharge and if home health or outpatient therapy is recommended patient is open to this. SW will continue to follow and assist with discharge needs. Julianna Lubin BAKER PASTRY KAELA
[2023-09-15 15:57] VITALS: O2SAT 92
[2023-09-15] MEDS: Levothyroxine 112 MCG Tablet PO (21:40)
[2023-09-15] MEDS: traZODone 100 MG Tablet PO (21:40)
[2023-09-15] MEDS: Potassium Chloride Oral Tablet 20 MEQ PO (21:47)
[2023-09-15 22:00] VITALS: O2SAT 94
[2023-09-16] MEDS: Acetaminophen 500 MG Tablet 1000 MG PO ×3 (03:33→20:48)
[2023-09-16] MEDS: SILDENAFIL CITRATE 20 MG TABLET 80 MG PO ×3 (06:19→20:52)
[2023-09-16] MEDS: TREPROSTINIL 64 MCG CART.INHAL INHALATION ×4 (06:21→21:03)
[2023-09-16] MEDS: Albuterol IH (6.7 GM) 1 PUFF INHALER 2 PUFF INHALATION ×4 (06:21→20:46)
[2023-09-16 08:23] VITALS: BP 109/48; PULSE 77; RESP 18; TEMP 36.4; O2SAT 93
[2023-09-16] MEDS: Umeclidinium Bromide Inhaler 1 PUFF INHALATION (08:35)
[2023-09-16] MEDS: Calcium Carb/Vitamin D 1 TABLET Tablet PO (08:36)
[2023-09-16] MEDS: Celecoxib 200 MG Capsule PO (08:36)
[2023-09-16] MEDS: Lactobacillis Acidophilus 1 CAP PO ×2 (08:36→17:01)
[2023-09-16] MEDS: Multivitamin (Healthy Eyes) Capsule 1 CAP PO ×2 (08:37→20:51)
[2023-09-16] MEDS: guaiFENesin 1,200 MG Tablet 1200 MG PO (08:37)
[2023-09-16] MEDS: Loratadine 10 MG Tablet PO (08:37)
[2023-09-16] MEDS: TICAGRELOR 90 MG TABLET PO ×2 (08:38→20:49)
[2023-09-16] MEDS: Furosemide 80 MG Tablet PO (08:38)
[2023-09-16] MEDS: dilTIAZem CD 180 MG Capsule PO (08:38)
[2023-09-16] MEDS: Pantoprazole Sodium 20 MG Tablet PO (08:39)
[2023-09-16] MEDS: Fluticasone/Salmeterol 232-14 Inhaler 1 PUFF INHALATION ×2 (08:40→20:45)
[2023-09-16] MEDS: Potassium Chloride Oral Tablet 20 MEQ 40 MEQ PO (08:47)
[2023-09-16] MEDS: traZODone 100 MG Tablet PO (20:50)
[2023-09-16] MEDS: Levothyroxine 112 MCG Tablet PO (20:53)
[2023-09-16] MEDS: Potassium Chloride Oral Tablet 20 MEQ PO (21:02)
[2023-09-17] MEDS: Acetaminophen 500 MG Tablet 1000 MG PO ×2 (06:32→21:11)
[2023-09-17] MEDS: SILDENAFIL CITRATE 20 MG TABLET 80 MG PO ×3 (06:33→21:15)
[2023-09-17] MEDS: Albuterol IH (6.7 GM) 1 PUFF INHALER 2 PUFF INHALATION ×4 (08:46→21:07)
[2023-09-17] MEDS: TREPROSTINIL 64 MCG CART.INHAL INHALATION ×4 (08:48→21:08)
[2023-09-17] MEDS: Multivitamin (Healthy Eyes) Capsule 1 CAP PO ×2 (10:39→21:14)
[2023-09-17] MEDS: TICAGRELOR 90 MG TABLET PO ×2 (10:39→21:13)
[2023-09-17] MEDS: Lactobacillis Acidophilus 1 CAP PO ×2 (10:39→16:57)
[2023-09-17] MEDS: Fluticasone/Salmeterol 232-14 Inhaler 1 PUFF INHALATION ×2 (10:40→21:07)
[2023-09-17] MEDS: Pantoprazole Sodium 20 MG Tablet PO (10:41)
[2023-09-17] MEDS: Loratadine 10 MG Tablet PO (10:42)
[2023-09-17] MEDS: Calcium Carb/Vitamin D 1 TABLET Tablet PO (10:42)
[2023-09-17] MEDS: Celecoxib 200 MG Capsule PO (10:42)
[2023-09-17] MEDS: dilTIAZem CD 180 MG Capsule PO (10:43)
[2023-09-17] MEDS: Umeclidinium Bromide Inhaler 1 PUFF INHALATION (10:44)
[2023-09-17] MEDS: guaiFENesin 1,200 MG Tablet 1200 MG PO (10:46)
[2023-09-17] MEDS: Furosemide 40 MG Tablet PO (10:46)
[2023-09-17] MEDS: Potassium Chloride Oral Tablet 20 MEQ 40 MEQ PO (10:52)
[2023-09-17 14:19] VITALS: BP 110/57; PULSE 89; RESP 22; TEMP 36.1; O2SAT 93
--- NOTE | 2023-09-17 17:01 | NURSING ---
Patient reports she has an eye doctor appt with [facility] on 09/21/23 at 1330. This is appt is not on our schedule at this time but patient reports son should be able to take her to appt and that the doctor here said it should be approved. She is aware that she will talk about it Monday to make sure it is approved and that she is able to go to appt.
[2023-09-17 20:45] VITALS: BP 96/56; PULSE 94; O2SAT 90
[2023-09-17] MEDS: Levothyroxine 112 MCG Tablet PO ×2 (21:12)
[2023-09-17] MEDS: traZODone 100 MG Tablet PO (21:14)
[2023-09-17] MEDS: Potassium Chloride Oral Tablet 20 MEQ PO (21:18)
[2023-09-17 21:24] VITALS: O2SAT 92
[2023-09-18 06:27] VITALS: BP 113/71; PULSE 92
[2023-09-18] MEDS: SILDENAFIL CITRATE 20 MG TABLET 80 MG PO ×3 (06:33→20:54)
[2023-09-18] MEDS: Furosemide 80 MG Tablet PO (06:33)
[2023-09-18] MEDS: Albuterol IH (6.7 GM) 1 PUFF INHALER 2 PUFF INHALATION ×4 (06:34→20:46)
[2023-09-18] MEDS: TREPROSTINIL 64 MCG CART.INHAL INHALATION ×4 (06:34→20:47)
[2023-09-18] MEDS: Acetaminophen 500 MG Tablet 1000 MG PO ×2 (06:46→20:49)
[2023-09-18] MEDS: Lactobacillis Acidophilus 1 CAP PO ×2 (09:00→17:00)
[2023-09-18] MEDS: guaiFENesin 1,200 MG Tablet 1200 MG PO (09:00)
[2023-09-18] MEDS: Cholecalciferol (Vit D3) 125 MCG CAPSULE (5,000 UNITS) PO (09:00)
[2023-09-18] MEDS: dilTIAZem CD 180 MG Capsule PO (09:00)
[2023-09-18] MEDS: Loratadine 10 MG Tablet PO (09:00)
[2023-09-18] MEDS: Calcium Carb/Vitamin D 1 TABLET Tablet PO (09:00)
[2023-09-18] MEDS: Multivitamin (Healthy Eyes) Capsule 1 CAP PO ×2 (09:00→20:53)
[2023-09-18] MEDS: Celecoxib 200 MG Capsule PO (09:01)
[2023-09-18] MEDS: Pantoprazole Sodium 20 MG Tablet PO (09:01)
[2023-09-18] MEDS: TICAGRELOR 90 MG TABLET PO ×2 (09:01→20:51)
[2023-09-18] MEDS: Fluticasone/Salmeterol 232-14 Inhaler 1 PUFF INHALATION ×2 (09:06→20:46)
[2023-09-18] MEDS: Potassium Chloride Oral Tablet 20 MEQ 40 MEQ PO (09:06)
[2023-09-18] MEDS: Umeclidinium Bromide Inhaler 1 PUFF INHALATION (09:07)
[2023-09-18 09:37] VITALS: O2SAT 91
[2023-09-18 10:00] VITALS: O2SAT 92
[2023-09-18 10:55] VITALS: BP 130/65; PULSE 87; RESP 18; TEMP 36.3; O2SAT 96
--- NOTE | 2023-09-18 12:09 | NURSING ---
Addendum entered by Indira Roblero 09/18/23 12:33: Discussed with office staff Ly who is familiar with the study. She says patient has been in a trial, she is now in the [facility] follow-up portion. She does receive injections but nothing gets billed to insurance or patient. Original Note: Talked with patient and son about eye appt. She sees Dr. Gutierrez, and reports she is in a study where she gets injections. This nurse left VM with clinic for more details, await return call.
[2023-09-18] MEDS: traZODone 100 MG Tablet PO (20:51)
[2023-09-18] MEDS: Potassium Chloride Oral Tablet 20 MEQ PO (20:53)
[2023-09-18] MEDS: Levothyroxine 112 MCG Tablet PO (20:55)
[2023-09-19 06:34] VITALS: BP 128/73; PULSE 81
[2023-09-19] MEDS: Albuterol IH (6.7 GM) 1 PUFF INHALER 2 PUFF INHALATION ×4 (06:37→21:49)
[2023-09-19] MEDS: TREPROSTINIL 64 MCG CART.INHAL INHALATION ×4 (06:38→21:49)
[2023-09-19] MEDS: Furosemide 40 MG Tablet PO (06:39)
[2023-09-19] MEDS: SILDENAFIL CITRATE 20 MG TABLET 80 MG PO ×3 (06:40→21:45)
[2023-09-19] MEDS: Acetaminophen 500 MG Tablet 1000 MG PO ×2 (06:40→21:44)
[2023-09-19 07:44] VITALS: BMI 24.3
[2023-09-19] MEDS: Umeclidinium Bromide Inhaler 1 PUFF INHALATION (09:01)
[2023-09-19] MEDS: Fluticasone/Salmeterol 232-14 Inhaler 1 PUFF INHALATION ×2 (09:02→21:47)
[2023-09-19] MEDS: Calcium Carb/Vitamin D 1 TABLET Tablet PO (09:03)
[2023-09-19] MEDS: Potassium Chloride Oral Tablet 20 MEQ 40 MEQ PO (09:03)
[2023-09-19] MEDS: guaiFENesin 1,200 MG Tablet 1200 MG PO (09:03)
[2023-09-19] MEDS: Loratadine 10 MG Tablet PO (09:04)
[2023-09-19] MEDS: Celecoxib 200 MG Capsule PO (09:04)
[2023-09-19] MEDS: Pantoprazole Sodium 20 MG Tablet PO (09:04)
[2023-09-19] MEDS: TICAGRELOR 90 MG TABLET PO ×2 (09:04→21:44)
[2023-09-19] MEDS: Multivitamin (Healthy Eyes) Capsule 1 CAP PO ×2 (09:04→21:47)
[2023-09-19] MEDS: Lactobacillis Acidophilus 1 CAP PO ×2 (09:04→17:53)
[2023-09-19] MEDS: Cholecalciferol (Vit D3) 125 MCG CAPSULE (5,000 UNITS) PO (09:05)
[2023-09-19] MEDS: dilTIAZem CD 180 MG Capsule PO (09:05)
[2023-09-19 09:08] VITALS: BP 115/59; PULSE 71
[2023-09-19 09:23] VITALS: O2SAT 78
[2023-09-19 09:26] VITALS: O2SAT 90
[2023-09-19] MEDS: COVID VAC 23-24(12UP)(ANDU)/PF 50 MCG/0.5 ML SYRINGE IM (10:55)
--- NOTE | 2023-09-19 10:59 | NURSING ---
SPIKEVAX GIVEN IN THE LEFT DELT. PT TOLERATED WELL.
--- NOTE | 2023-09-19 11:16 | NURSING ---
PER RESPIRATORY, BUMP PT UP TO 8L WHEN PT IS UP WALKING THEN BACK DOWN TO 6L AT REST. PT IS ALSO TO HAVE THE HIGH FLOW NASAL CANNULA. RN AWARE.
[2023-09-19 13:38] VITALS: BP 116/58; PULSE 62; RESP 16; TEMP 36.5; O2SAT 96
[2023-09-19 21:45] VITALS: BP 111/63; PULSE 96; O2SAT 97
[2023-09-19] MEDS: Potassium Chloride Oral Tablet 20 MEQ PO (21:46)
[2023-09-19] MEDS: traZODone 100 MG Tablet PO (21:47)
[2023-09-19] MEDS: Levothyroxine 112 MCG Tablet PO (21:48)
[2023-09-19] MEDS: Docusate Sodium 100 MG Capsule PO (21:48)
[2023-09-20] MEDS: SILDENAFIL CITRATE 20 MG TABLET 80 MG PO ×3 (06:28→20:41)
[2023-09-20] MEDS: Furosemide 80 MG Tablet PO (06:28)
[2023-09-20] MEDS: TREPROSTINIL 64 MCG CART.INHAL INHALATION ×3 (06:28→17:16)
[2023-09-20] MEDS: Albuterol IH (6.7 GM) 1 PUFF INHALER 2 PUFF INHALATION ×3 (06:28→17:16)
[2023-09-20] MEDS: Acetaminophen 500 MG Tablet 1000 MG PO ×2 (06:30→20:40)
[2023-09-20 06:31] VITALS: BP 107/69; PULSE 89; O2SAT 90
--- NOTE | 2023-09-20 08:48 | NURSING ---
Fruit Picker Note; MDS for 09/20/2023 Complete
[2023-09-20] MEDS: Fluticasone/Salmeterol 232-14 Inhaler 1 PUFF INHALATION ×2 (09:19→20:40)
[2023-09-20] MEDS: Umeclidinium Bromide Inhaler 1 PUFF INHALATION (09:20)
[2023-09-20] MEDS: Potassium Chloride Oral Tablet 20 MEQ 40 MEQ PO (09:22)
[2023-09-20] MEDS: Lactobacillis Acidophilus 1 CAP PO ×2 (09:22→17:16)
[2023-09-20] MEDS: Calcium Carb/Vitamin D 1 TABLET Tablet PO (09:22)
[2023-09-20] MEDS: Multivitamin (Healthy Eyes) Capsule 1 CAP PO ×2 (09:22→20:40)
[2023-09-20] MEDS: dilTIAZem CD 180 MG Capsule PO (09:23)
[2023-09-20] MEDS: TICAGRELOR 90 MG TABLET PO ×2 (09:23→20:40)
[2023-09-20] MEDS: Celecoxib 200 MG Capsule PO (09:23)
[2023-09-20] MEDS: Loratadine 10 MG Tablet PO (09:24)
[2023-09-20] MEDS: guaiFENesin 1,200 MG Tablet 1200 MG PO (09:24)
[2023-09-20] MEDS: Cholecalciferol (Vit D3) 125 MCG CAPSULE (5,000 UNITS) PO (09:24)
[2023-09-20] MEDS: Pantoprazole Sodium 20 MG Tablet PO (09:24)
[2023-09-20 09:28] VITALS: BP 101/64; PULSE 72
[2023-09-20 10:20] VITALS: PULSE 77; RESP 20; O2SAT 96
--- NOTE | 2023-09-20 10:42 | CASEMGMT ---
Social Work IDT met with patient and sonLuther at bedside to complete care plans. Discussed patient progress with therapy (PT/OT), dietary, and activities. Patient is contact guard assist with UE and mod A for LE bathing. Patient is ambulating 50ft with therapy; current concerns is endurance. Patient requires 8L oxygen while ambulating with therapy. Patient has walker from home that is too big. Patient will require a pediatric walker, bedside commode. Patient expressed wanting oral suction for home. Therapy is recommending home health care. SW educated patient and son regarding Medicare coverage and benefits. Patient was informed of Medicare benefit for 100% coverage for first 20 days and copay 204/day for 21-100. Patient informed SW that she would like to discharge prior to day 20. Patient's goal is to discharge within week and half. SW inquired about home O2 provider; patient informed SW that she has Home O2 via [facility]. Patient informed SW that at rest she is on 6L and 8L with exertion. Patient informed SW that she has concentrator at home that can go up 10L. Patient reports that she previously had [facility]. Patient would like to obtain [facility]. SW will continue to follow to support discharge planning. KAELA Jiang
[2023-09-20 12:51] VITALS: O2SAT 91
--- NOTE | 2023-09-20 13:30 | NURSING ---
PT STATED TO THIS NURSE THAT SHE HAS ALWAYS BEEN ON 8 L AT HOME AT ALL TIMES AND WHY WERE WE KEEPING HER AT 6 L AT REST AND 8L WHEN UP. THIS NURSE DISCUSSED IT WITH RN AND FOUND THAT WAS GIVEN IN REPORT. STATED TO PT THAT IT WAS GIVEN IN REPORT. PT STATED SHE ASKED HER SON AND SON STATED THAT WAS WHAT THE EMT HAD HER ON WHEN THEY PICKED HER UP AND BROUGHT HER TO HOSPITAL. PT STATED THAT SHE FEELS BETTER AND CAN THINK AND STAY AWAKE MORE IF SHE WAS ON 8L. STATED TO PT WILL KEEP HER ON 8L PER HER REQUEST AND IF SHE WANTED IT LOWER TO LET US KNOW. AND TO LET US KNOW IF SHE FEELS ANY BETTER. PT STATED WELL YOU KNOW MY DR TOLD ME THAT I COULD AT ANY TIME AND TOMMY OK WITH THAT. WILL CONTINUE TO MONITOR PT,RN AWARE.
[2023-09-20 14:06] VITALS: BP 114/62; PULSE 76; RESP 16; TEMP 36.4; O2SAT 91
--- NOTE | 2023-09-20 18:49 | CASEMGMT ---
Social Work SW met with patient at bedside to complete MDS. Patient BIM () and PhQ-2 () SW will continue to follow to support discharge planning. KAELA Jiang
[2023-09-20] MEDS: traZODone 100 MG Tablet PO (20:40)
[2023-09-20] MEDS: Docusate Sodium 100 MG Capsule PO (20:40)
[2023-09-20] MEDS: Levothyroxine 112 MCG Tablet PO (20:41)
[2023-09-20] MEDS: Potassium Chloride Oral Tablet 20 MEQ PO (20:41)
[2023-09-21] MEDS: Furosemide 40 MG Tablet PO (05:14)
[2023-09-21] MEDS: SILDENAFIL CITRATE 20 MG TABLET 80 MG PO ×3 (05:14→20:01)
[2023-09-21] MEDS: Albuterol IH (6.7 GM) 1 PUFF INHALER 2 PUFF INHALATION ×3 (06:00→19:50)
[2023-09-21] MEDS: TREPROSTINIL 64 MCG CART.INHAL INHALATION ×3 (06:00→19:50)
[2023-09-21 06:01] LABS: Absolute Lymphocyte Count 0.99 X10^3/uL (0.83-4.51); Absolute Neutrophil Count 7.1 X10^3/uL (2.0-7.7); Basophil# 0.05 X10^3/uL; Basophil% 0.5 % (0-1); Eosinophil# 0.31 X10^3/uL; Eosinophils% 3.3 % (0-5); Hematocrit 34.9 % (37-47); Hemoglobin 10.7 g/dL (12.0-15.0); Lymphocyte # 0.99 X10^3/ul (0.83-4.51); Lymphocyte % 10.6 % (19-41); Mean Corp Hgb Conc 30.7 g/dL (32-36); Mean Corpuscular Hgb 28.9 pg (27.0-32.0); Mean Corpuscular Volume 94.3 fL (81-99); Mean Platelet Vol. 11.3 fl (6.2-12.0); Monocyte# 0.81 X10^3/uL; Monocyte% 8.7 % (0-10); NRBC Flagged by Analyzer 0 % (0-5); Neutrophil # 7.13 X10^3/uL (2.7-7.7); Neutrophil % 76.5 % (47-70); POSITIVE MORPHOLOGY YES; Platelet Count 244 K/mm3 (150-450); RBC Distribution Width CV 19.9 % (11.6-14.6); RBC Distribution Width SD 68.5 fl (35.1-43.9); White Blood Count 9.3 K/mm3 (4.4-11.0)
[2023-09-21 06:36] LABS: Anion Gap 5 (5-15); BUN 29 mg/dL (7-18); BUN/Creat Ratio 37.5 RATIO (10-20); Chloride 101 mmol/L (98-107); Creatinine, Serum 0.77 mg/dL (0.55-1.02); EST Glomerular Filtration Rate 75 mL/min (>60); Est Glom Filt Rate - Afr Amer 90 mL/min (>60); Estimated Creatinine Clearance 37.59 ml/min; Glucose 103 mg/dL (74-106); Potassium 4.1 mmol/L (3.5-5.1); Sodium Level 135 mmol/L (136-145)
[2023-09-21 07:09] VITALS: O2SAT 91
[2023-09-21 07:09] LABS: Differential Indicated SCAN CRITERIA MET
[2023-09-21 07:57] LABS: Differential Comment SCANNED
[2023-09-21 07:58] LABS: Anisocytosis 1+; Macrocytosis 1+; Schistocytes 1+
[2023-09-21] MEDS: Acetaminophen 500 MG Tablet 1000 MG PO ×2 (08:25→19:59)
[2023-09-21] MEDS: Calcium Carb/Vitamin D 1 TABLET Tablet PO (08:26)
[2023-09-21] MEDS: Lactobacillis Acidophilus 1 CAP PO ×2 (08:26→17:04)
[2023-09-21] MEDS: Potassium Chloride Oral Tablet 20 MEQ 40 MEQ PO (08:26)
[2023-09-21] MEDS: Celecoxib 200 MG Capsule PO (08:27)
[2023-09-21] MEDS: TICAGRELOR 90 MG TABLET PO ×2 (08:27→20:00)
[2023-09-21] MEDS: Multivitamin (Healthy Eyes) Capsule 1 CAP PO ×2 (08:27→20:01)
[2023-09-21] MEDS: Loratadine 10 MG Tablet PO (08:27)
[2023-09-21] MEDS: dilTIAZem CD 180 MG Capsule PO (08:27)
[2023-09-21] MEDS: guaiFENesin 1,200 MG Tablet 1200 MG PO (08:28)
[2023-09-21] MEDS: Cholecalciferol (Vit D3) 125 MCG CAPSULE (5,000 UNITS) PO (08:28)
[2023-09-21] MEDS: Pantoprazole Sodium 20 MG Tablet PO (08:28)
[2023-09-21] MEDS: Umeclidinium Bromide Inhaler 1 PUFF INHALATION (08:31)
[2023-09-21] MEDS: Fluticasone/Salmeterol 232-14 Inhaler 1 PUFF INHALATION ×2 (08:31→19:51)
--- NOTE | 2023-09-21 12:15 | NURSING ---
Son transports patient at this time to [facility]
--- NOTE | 2023-09-21 17:00 | NURSING ---
Patient return from retina center with NNO. Haider Dumont OD at appt and son reports patient will continue to f/u monthly.
[2023-09-21 17:38] VITALS: BP 103/53; PULSE 62; RESP 17; TEMP 36.6; O2SAT 94
[2023-09-21] MEDS: Docusate Sodium 100 MG Capsule PO (20:00)
[2023-09-21] MEDS: traZODone 100 MG Tablet PO (20:00)
[2023-09-21] MEDS: Potassium Chloride Oral Tablet 20 MEQ PO (20:01)
[2023-09-21] MEDS: Levothyroxine 112 MCG Tablet PO (20:02)
[2023-09-21 22:00] VITALS: PULSE 68; O2SAT 91
[2023-09-22] MEDS: SILDENAFIL CITRATE 20 MG TABLET 80 MG PO ×3 (05:47→20:04)
[2023-09-22] MEDS: Acetaminophen 500 MG Tablet 1000 MG PO ×2 (05:48→20:02)
[2023-09-22] MEDS: Furosemide 80 MG Tablet PO (05:49)
[2023-09-22] MEDS: TREPROSTINIL 64 MCG CART.INHAL INHALATION ×3 (05:50→20:00)
[2023-09-22] MEDS: Albuterol IH (6.7 GM) 1 PUFF INHALER 2 PUFF INHALATION ×3 (05:50→19:59)
[2023-09-22 05:55] VITALS: BP 104/69; PULSE 69
[2023-09-22 06:59] VITALS: O2SAT 93
[2023-09-22] MEDS: Lactobacillis Acidophilus 1 CAP PO ×2 (08:34→16:16)
[2023-09-22] MEDS: Potassium Chloride Oral Tablet 20 MEQ 40 MEQ PO (08:34)
[2023-09-22] MEDS: guaiFENesin 1,200 MG Tablet 1200 MG PO (08:35)
[2023-09-22] MEDS: dilTIAZem CD 180 MG Capsule PO (08:35)
[2023-09-22] MEDS: Loratadine 10 MG Tablet PO (08:35)
[2023-09-22] MEDS: Umeclidinium Bromide Inhaler 1 PUFF INHALATION (08:35)
[2023-09-22] MEDS: TICAGRELOR 90 MG TABLET PO ×2 (08:35→20:01)
[2023-09-22] MEDS: Celecoxib 200 MG Capsule PO (08:35)
[2023-09-22] MEDS: Calcium Carb/Vitamin D 1 TABLET Tablet PO (08:35)
[2023-09-22] MEDS: Cholecalciferol (Vit D3) 125 MCG CAPSULE (5,000 UNITS) PO (08:35)
[2023-09-22] MEDS: Fluticasone/Salmeterol 232-14 Inhaler 1 PUFF INHALATION ×2 (08:35→19:59)
[2023-09-22] MEDS: Multivitamin (Healthy Eyes) Capsule 1 CAP PO ×2 (08:35→20:03)
[2023-09-22] MEDS: Pantoprazole Sodium 20 MG Tablet PO (08:35)
[2023-09-22] MEDS: Tuberculin,Purif.prot.deriv. 50 TU/ML Vial 0.1 ML ID (09:41)
[2023-09-22 10:26] VITALS: BP 114/54; PULSE 66; RESP 18; TEMP 36.4; O2SAT 92
--- NOTE | 2023-09-22 12:51 | NURSING ---
Updated that a patient on the unit tested covid positive. Patient does not want family called, said she will update them.
--- NOTE | 2023-09-22 12:55 | CASEMGMT ---
Addendum entered by Huang Villarreal 09/22/23 16:37: FRANCISCO JAVIER received notification from [facility] that patient is ineligible for walker due to receiving a rollator in 2021 from [facility]. Patient will be eligible for DME in 2026. FRANCISCO JAVIER notified patient at bedside. Addendum entered by Huang Villarreal 09/22/23 15:51: FRANCISCO JAVIER submitted patient script for BSC and walker to [facility] via careport guide. Addendum entered by Huang Villarreal 09/22/23 15:04: FRANCISCO JAVIER received update from [facility] has accepted patient for home health care services with SOC on 09/29/2023. SW notified patient of acceptance. Original Note: Social Work- Discharge plan SW met with patient and son, Luther at bedside to discuss discharge planning. Patient is requesting to discharge on , 09/28/2023. Patient informed SW that she would like to have a suction machine due to having trouble coughing up phlegm. SW inquired about history with GI for any issues with esophageal. Patient informed SW that she has no history of speaking with GI regarding issues with swallowing or coughing. SW informed patient that speech therapy can be consulted for evaluation. Patient is agreeable to consult speech therapy. Patient requested for DME: [facility] (pediatric) and bedside commode. FRANCISCO JAVIER provided script for Physician, Dr. Khan to complete. Patient requested to have home health. Patient had [facility] in the past. Patient requested referral to be submitted to [facility] for PT/OT/SN services. SW submitted referral via phone referral. Patient completed Notice of Medicare Non-Coverage for current Long Term Facility services end date on 09/27/2023. Patient anticipates discharge on 09/28/2023. Discharge on 09/28/2023 Home with Home Health Care PT/OT/SN; [facility] Front Wheeled Walker, Bedside Commode KAELA Jiang
--- NOTE | 2023-09-22 13:40 | DS.PCM_ITS ---
Providers Date of Admission: 09/13/23 Primary Care Physician: Dr. Meli Gómez DO Reason For Visit: L SUPERIOR AND INFERIOR PUBIC RAMI Diagnosis Discharge Diagnosis (1) Debility: Status: Acute Code(s): R53.81 - Other malaise (2) Fall: Status: Resolved Code(s): W19.XXXA - Unspecified fall, initial encounter Qualifiers: Encounter type: initial encounter Qualified Code(s): W19.XXXA - Unspecified fall, initial encounter (3) Fracture of left pelvis: Status: Acute Code(s): S32.9XXA - Fracture of unspecified parts of lumbosacral spine and pelvis, initial encounter for closed fracture (4) COPD (chronic obstructive pulmonary disease): Status: Inactive Code(s): J44.9 - Chronic obstructive pulmonary disease, unspecified Qualifiers: COPD type: unspecified COPD Qualified Code(s): J44.9 - Chronic obstructive pulmonary disease, unspecified (5) Aortic stenosis: Status: Acute Code(s): I35.0 - Nonrheumatic aortic (valve) stenosis (6) Coronary artery disease: Status: Acute Code(s): I25.10 - Atherosclerotic heart disease of elim ira coronary artery without angina pectoris (7) GERD (gastroesophageal reflux disease): Status: Acute Code(s): K21.9 - Gastro-esophageal reflux disease without esophagitis (8) Hypothyroidism: Status: Acute Code(s): E03.9 - Hypothyroidism, unspecified (9) Allergic rhinitis: Status: Acute Code(s): J30.9 - Allergic rhinitis, unspecified (10) Pulmonary hypertension: Status: Acute Code(s): I27.20 - Pulmonary hypertension, unspecified (11) Osteoarthritis: Status: Acute Code(s): M19.90 - Unspecified osteoarthritis, unspecified site (12) Insomnia: Status: Acute Code(s): G47.00 - Insomnia, unspecified (13) History of lung cancer: Status: Resolved Code(s): Z85.118 - Personal history of other malignant neoplasm of bronchus and lung Plan 88 year old female with below past medical history hospitalized for fall, left pelvic fracture, admitted to TCU with debility, here for rehabilitation, strengthening, prior to discharge home alone. * Debility - PT/OT. * Pain - Tylenol 1000mg q6 prn pain (1-10). * Bowel - Colace 100mg qhs. * Adult immunization - Administer pneumonia vaccine, covid vaccine, flu vaccine as appropriate. * DVT prophylaxis - Lovenox 40mg sc daily. * COPD - Fluticasone/Salmeterol 232-14mg 1 puff q12h, Incruse 1 puff daily, Albuterol mdi 2 puffs 4x/day prn, Prednisone 10mg daily. * Calcium deficiency - Calcium D 1 tablet daily. * Osteoarthritis - Celebrex 200mg daily. * Vitamin D deficiency - D3 125mcg daily 5 days/week. * Hypertension - Diltiazem 180mg daily. * Edema - Lasix 40mg/80mg alternating. * Congestion - Mucinex 1200mg daily. * GI prophylaxis - Lactobacillus 1 capsule bidcm. * Hypothyroidism - Levothyroxine 112mcg qhs, 224mcg q14 days. * Allergic rhinitis - Loratadine 10mg daily. * Macular degeneration - Healthy Eyes 1 cap bid. * GERD - Pantoprazole 20mg daily. * Hypokalemia - KCL 40meq qam, 20meq qhs. * Pulmonary HTN - Sildenafil 80mg tid, Tyvaso 64mcg inhaled q6. * Coronary artery disease - Brilinta 90mg bid. 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 Medications at Discharge Home Medications omeprazole 20 mg capsule,delayed release 20 mg PO DAILY GERD 06/26/18 umeclidinium 62.5 mcg/actuation blister powder for inhalation (Incruse Ellipta) 1 inh inhalation DAILY COPD 06/26/18 vit C 250 mg-vit E 90 mg-zinc 40 mg-copper 1 or-fybnmq-uigrzr capsule (PreserVision AREDS-2) 1 tab PO BID SUPPLEMENT 06/26/18 levothyroxine 112 mcg tablet 112 mcg PO QHS THYROID 06/27/18 cetirizine 10 mg capsule 10 mg PO DAILY allergies 09/20/19 albuterol sulfate 90 mcg/actuation aerosol inhaler 2 puff inhalation 4X/DAY PRN COPD 12/26/19 cholecalciferol (vitamin D3) 125 mcg (5,000 unit) capsule 125 mcg PO MOTUWETHFR supplement 08/24/20 ticagrelor 90 mg tablet (Brilinta) 90 mg PO BID blood press 03/08/22 calcium carbonate 600 mg-vitamin D3 5 mcg (200 unit) capsule (Calcium 600 + D(3)) 1 cap PO QAM supplement 06/07/22 docusate sodium 100 mg capsule 100 mg PO QHS stool softener 06/07/22 fluticasone furoate 200 mcg-vilanterol 25 mcg/dose inhalation powder (Breo Ellipta) 1 inh inhalation DAILY copd 06/07/22 guaifenesin 600 mg tablet, extended release 12 hr (Mucinex) 1,200 mg PO DAILY cough 06/07/22 lactobacillus combination no.9 4 billion cell capsule (Adult 50 Plus Probiotic) 4,000 mmu cells PO BID colon health 06/07/22 treprostinil 64 mcg cartridge with inhaler (Tyvaso DPI) 64 mcg inhalation Q6H breathing 01/07/23 celecoxib 200 mg capsule (Celebrex) 200 mg PO DAILY Pain 04/28/23 trazodone 50 mg tablet 100 mg PO QHS SLEEP 04/28/23 diltiazem HCl 180 mg capsule,24 hr,extended release 180 mg PO DAILY heart #30 caps 07/07/23 furosemide 40 mg tablet 40 mg PO QODAY Heart 08/28/23 potassium chloride 20 mEq tablet,extended release 40 meq PO DAILY Supplement 08/28/23 furosemide 80 mg tablet 80 mg PO QODAY Heart 09/09/23 levothyroxine 112 mcg tablet (Euthyrox) 224 mcg PO .qosu Thyroid 09/09/23 potassium chloride 20 mEq tablet,extended release (K-Tab) 20 meq PO .qohs Supplement 09/09/23 potassium chloride 20 mEq tablet,extended release (K-Tab) 20 meq PO QHS Supplement 09/09/23 sildenafil (pulm.hypertension) 20 mg tablet 80 mg PO TID blood pressure 09/09/23 acetaminophen 500 mg tablet 1,000 mg (2 x 500 mg) PO 0600,2130 #0 tabs 09/22/23 acetaminophen 500 mg tablet 1,000 mg (2 x 500 mg) PO Q6H PRN PRN Pain Score 1-10 #0 tabs 09/22/23 Hospital Course Operations None Procedures None Summary of Care Provided Minutes Spent on Discharge: 35 Hospital Course: 88 year old female with below past medical history hospitalized for fall, left pelvic fracture, admitted to TCU with debility, here for rehabilitation, strengthening, prior to discharge home alone. Discharge home alone, C PT/OT/SN; DASCO front wheeled walker, bedside commode. FWW: Patient is unsafe to use a cane and requires a walker for ambulation in the home and the community. BSC: Patient is unable to access bathroom safely and requires a BSC. Physical Exam Const alert General Appearance: cooperative HEENT normocephalic Eyes PERRL and EOMs intact bilaterally Neck supple, no JVD and no carotid bruits Resp normal respiratory effort, normal air movement and clear to auscultation bilaterally Cardio regular rate and regular rhythm GI normal to inspection, nondistended, normoactive bowel sounds, non-tender and non-distended Extremity normal capillary refill General Extremity: Negative for edema Skin no rashes or lesions noted General Skin Exam: no breakdown Psych affect normal Appearance: appropriate Weight / BMI Weight Weight: 56.608 kg Body Mass Index (BMI) 24.3 ABG / Lab / Microbiology Data 09/21/23 05:33 09/21/23 05:33 Microbiology: Microbiology 09/22/23 10:05 Nasal Secretion SARS-CoV-2 Antigen (Rapid) - Final D/C Instructions Discharge Diet: No restrictions Discharge Activity: Return to Normal Activity, May Shower and Use Walker Weight Bearing Status: Weight bearing as tolerated Call your doctor if you observe: Fever of 101 or Higher, Inability to urinate, Inability to have a bowel movement, Shortness of breath, Dizziness, Fainting spells, Swelling in the ankles, Chest pain and Uncontrolled pain Additional Instructions: Discharge home alone, C PT/OT/SN; DASCO front wheeled walker, bedside commode. FWW: Patient is unsafe to use a cane and requires a walker for ambulation in the home and the community. BSC: Patient is unable to access bathroom safely and requires a BSC. Please Follow Up With: Dr. Gutierrez Meaningful Use Info Meaningful Use Meaningful Use Diagnoses (Choose all that apply): None applicable Ischemic Stroke Statin Dosing Therapy Reference: STATIN DOSE THERAPY REFERENCE: * Patients > 75 years receive moderate or high dose statin therapy. * Patients 75 years or YOUNGER should receive HIGH intensity statin dose unless contraindicated. You will be required to document reason for non-treatment if statin daily dose does not meet guidelines. HIGH DOSE STATIN THERAPY DAILY Atorvastatin > than or = to 40 mg Rosuvastatin > than or = to 20 mg Amlodipine + Atorvastatin > than or = to 2.5/40 mg Ezetimibe + Simvastatin 10/80 mg Simvastatin 80mg Discharge Plan Admission Admit Date/Time: 09/13/23 18:33 Primary Reason for Your Visit: Debility. Attending Provider: Seb Khan Chi Primary Care Provider: Meli Gómez Instructions Additional Instructions / Restrictions: Discharge home alone, C PT/OT/SN; DASCO front wheeled walker, bedside commode. FWW: Patient is unsafe to use a cane and requires a walker for ambulation in the home and the community. BSC: Patient is unable to access bathroom safely and requires a BSC. Discharge Orders/Prescriptions Prescriptions: New acetaminophen 500 mg Tablet 1,000 mg PO 0600,2130 Qty: 0 0RF acetaminophen 500 mg Tablet 1,000 mg PO Q6H PRN PRN (Reason: Pain Score 1-10) Qty: 0 0RF Continued omeprazole 20 mg capsule,delayed release(DR/EC) 20 mg PO DAILY Incruse Ellipta 62.5 mcg/actuation blister with device 1 inh INHALATION DAILY PreserVision AREDS-2 [phone]-[id number]-mg capsule 1 tab PO BID cholecalciferol (vitamin D3) 125 mcg (5,000 unit) capsule 125 mcg PO MOTUWETHFR Brilinta 90 mg tablet 90 mg PO BID docusate sodium 100 mg capsule 100 mg PO QHS Calcium 600 + D(3) 600 mg-5 mcg (200 unit) capsule 1 cap PO QAM Adult 50 Plus Probiotic 4 billion cell capsule 4,000 mmu cells PO BID Rx Instructions: administer with a meal guaifenesin [Mucinex] 600 mg tablet extended release 12hr 1,200 mg PO DAILY fluticasone furoate-vilanterol [Breo Ellipta] 200-25 mcg/dose blister with device 1 inh inhalation DAILY celecoxib [Celebrex] 200 mg capsule 200 mg PO DAILY potassium chloride 20 mEq tablet extended release 40 meq PO DAILY furosemide 40 mg tablet 40 mg PO QODAY levothyroxine 112 mcg tablet 112 mcg PO QHS albuterol sulfate 90 mcg/actuation HFA aerosol inhaler 2 puff inhalation 4X/DAY PRN (Reason: COPD) Patient Comments: LUNGS trazodone 50 mg tablet 100 mg PO QHS cetirizine 10 MG capsule 10 mg PO DAILY Tyvaso DPI 64 mcg cartridge with inhaler 64 mcg inhalation Q6H Patient Comments: will drop her blood pressure furosemide 80 mg tablet 80 mg PO QODAY levothyroxine [Euthyrox] 112 mcg tablet 224 mcg PO .qosu Rx Instructions: every other monday potassium chloride [K-Tab] 20 mEq tablet extended release 20 meq PO QHS potassium chloride [K-Tab] 20 mEq tablet extended release 20 meq PO .qohs sildenafil (pulm.hypertension) 20 mg tablet 80 mg PO TID diltiazem HCl 180 mg capsule,extended release 24 hr 180 mg PO DAILY Qty: 30 6RF Discontinued acetaminophen 500 mg tablet 1,000 mg PO QAM prednisone 10 mg tablet 20 mg PO DAILY Referrals / Follow Up: Fast,Meli, [Primary Care Provider] - Disposition Disposition (needs filled in before D/C Order can be placed): Home Health Service
[2023-09-22] MEDS: Polyethylene Glycol 3350 17 GM PACKET PO (13:48)
[2023-09-22] MEDS: Levothyroxine 112 MCG Tablet PO (20:01)
[2023-09-22] MEDS: Docusate Sodium 100 MG Capsule PO (20:02)
[2023-09-22] MEDS: traZODone 100 MG Tablet PO (20:03)
[2023-09-22] MEDS: Potassium Chloride Oral Tablet 20 MEQ PO (20:04)
[2023-09-23] MEDS: Furosemide 40 MG Tablet PO (05:56)
[2023-09-23] MEDS: Albuterol IH (6.7 GM) 1 PUFF INHALER 2 PUFF INHALATION ×3 (05:56→21:52)
[2023-09-23] MEDS: TREPROSTINIL 64 MCG CART.INHAL INHALATION ×3 (05:56→21:52)
[2023-09-23] MEDS: Acetaminophen 500 MG Tablet 1000 MG PO ×3 (05:57→21:47)
[2023-09-23] MEDS: SILDENAFIL CITRATE 20 MG TABLET 80 MG PO ×3 (05:58→21:46)
[2023-09-23 06:00] VITALS: BP 117/68; PULSE 70; O2SAT 91
[2023-09-23] MEDS: Fluticasone/Salmeterol 232-14 Inhaler 1 PUFF INHALATION ×2 (08:14→21:44)
[2023-09-23] MEDS: Umeclidinium Bromide Inhaler 1 PUFF INHALATION (08:14)
[2023-09-23] MEDS: guaiFENesin 1,200 MG Tablet 1200 MG PO (08:15)
[2023-09-23] MEDS: Multivitamin (Healthy Eyes) Capsule 1 CAP PO ×2 (08:15→21:48)
[2023-09-23] MEDS: dilTIAZem CD 180 MG Capsule PO (08:15)
[2023-09-23] MEDS: Loratadine 10 MG Tablet PO (08:15)
[2023-09-23] MEDS: Lactobacillis Acidophilus 1 CAP PO ×2 (08:15→17:17)
[2023-09-23] MEDS: Pantoprazole Sodium 20 MG Tablet PO (08:15)
[2023-09-23] MEDS: Potassium Chloride Oral Tablet 20 MEQ 40 MEQ PO (08:15)
[2023-09-23] MEDS: Celecoxib 200 MG Capsule PO (08:15)
[2023-09-23] MEDS: Calcium Carb/Vitamin D 1 TABLET Tablet PO (08:15)
[2023-09-23] MEDS: TICAGRELOR 90 MG TABLET PO ×2 (08:16→21:49)
[2023-09-23 09:59] VITALS: BP 131/59; PULSE 66; RESP 20; TEMP 36.2; O2SAT 98
[2023-09-23 18:49] VITALS: O2SAT 98
[2023-09-23 21:45] VITALS: BP 116/60; PULSE 61
[2023-09-23] MEDS: traZODone 100 MG Tablet PO (21:46)
[2023-09-23] MEDS: Potassium Chloride Oral Tablet 20 MEQ PO (21:48)
[2023-09-23] MEDS: Levothyroxine 112 MCG Tablet PO (21:49)
--- NOTE | 2023-09-23 21:50 | NURSING ---
Dose of Tylenol 1000mg given at 2147 is a scheduled dose but marked and noted under the PRN order on the MAR as previous dayshift nurse scanned dose given at 1405 as the dose scheduled for 2099.
[2023-09-24] MEDS: TREPROSTINIL 64 MCG CART.INHAL INHALATION ×2 (06:46→20:44)
[2023-09-24] MEDS: Furosemide 80 MG Tablet PO (06:46)
[2023-09-24] MEDS: Albuterol IH (6.7 GM) 1 PUFF INHALER 2 PUFF INHALATION ×2 (06:46→20:45)
[2023-09-24] MEDS: SILDENAFIL CITRATE 20 MG TABLET 80 MG PO ×3 (06:46→20:48)
[2023-09-24] MEDS: Acetaminophen 500 MG Tablet 1000 MG PO ×2 (06:47→20:46)
[2023-09-24 06:48] VITALS: BP 133/77; PULSE 71
[2023-09-24] MEDS: Umeclidinium Bromide Inhaler 1 PUFF INHALATION (08:44)
[2023-09-24] MEDS: Loratadine 10 MG Tablet PO (08:44)
[2023-09-24] MEDS: Celecoxib 200 MG Capsule PO (08:44)
[2023-09-24] MEDS: Potassium Chloride Oral Tablet 20 MEQ 40 MEQ PO (08:44)
[2023-09-24] MEDS: Calcium Carb/Vitamin D 1 TABLET Tablet PO (08:44)
[2023-09-24] MEDS: Lactobacillis Acidophilus 1 CAP PO ×2 (08:44→14:13)
[2023-09-24] MEDS: TICAGRELOR 90 MG TABLET PO ×2 (08:44→20:49)
[2023-09-24] MEDS: Fluticasone/Salmeterol 232-14 Inhaler 1 PUFF INHALATION ×2 (08:44→20:45)
[2023-09-24] MEDS: dilTIAZem CD 180 MG Capsule PO (08:45)
[2023-09-24] MEDS: Multivitamin (Healthy Eyes) Capsule 1 CAP PO ×2 (08:45→20:47)
[2023-09-24] MEDS: guaiFENesin 1,200 MG Tablet 1200 MG PO (08:45)
[2023-09-24] MEDS: Pantoprazole Sodium 20 MG Tablet PO (08:45)
[2023-09-24 08:48] VITALS: O2SAT 97
[2023-09-24 09:24] VITALS: BP 113/59; PULSE 71; RESP 18; TEMP 36.5; O2SAT 92
[2023-09-24] MEDS: Polyethylene Glycol 3350 17 GM PACKET PO (12:47)
[2023-09-24] MEDS: Docusate Sodium 100 MG Capsule PO (20:47)
[2023-09-24] MEDS: Potassium Chloride Oral Tablet 20 MEQ PO (20:48)
[2023-09-24] MEDS: traZODone 100 MG Tablet PO (20:49)
[2023-09-24] MEDS: Levothyroxine 112 MCG Tablet PO (20:50)
[2023-09-24 22:00] VITALS: PULSE 68; O2SAT 94
[2023-09-25 05:39] LABS: Hematocrit 32.7 % (37-47); Hemoglobin 10.4 g/dL (12.0-15.0)
[2023-09-25] MEDS: Albuterol IH (6.7 GM) 1 PUFF INHALER 2 PUFF INHALATION (06:19)
[2023-09-25] MEDS: TREPROSTINIL 64 MCG CART.INHAL INHALATION (06:20)
[2023-09-25] MEDS: Acetaminophen 500 MG Tablet 1000 MG PO ×2 (06:24→20:03)
[2023-09-25] MEDS: SILDENAFIL CITRATE 20 MG TABLET 80 MG PO ×3 (06:24→20:04)
[2023-09-25] MEDS: Furosemide 40 MG Tablet PO (06:29)
[2023-09-25 06:32] VITALS: BP 117/52; PULSE 67
[2023-09-25 08:15] VITALS: O2SAT 96
[2023-09-25] MEDS: Cholecalciferol (Vit D3) 125 MCG CAPSULE (5,000 UNITS) PO (09:39)
[2023-09-25] MEDS: Pantoprazole Sodium 20 MG Tablet PO (09:39)
[2023-09-25] MEDS: Umeclidinium Bromide Inhaler 1 PUFF INHALATION (09:39)
[2023-09-25] MEDS: Multivitamin (Healthy Eyes) Capsule 1 CAP PO ×2 (09:39→20:04)
[2023-09-25] MEDS: Fluticasone/Salmeterol 232-14 Inhaler 1 PUFF INHALATION ×2 (09:39→20:01)
[2023-09-25] MEDS: Celecoxib 200 MG Capsule PO (09:39)
[2023-09-25] MEDS: dilTIAZem CD 180 MG Capsule PO (09:40)
[2023-09-25] MEDS: Potassium Chloride Oral Tablet 20 MEQ 40 MEQ PO (09:40)
[2023-09-25] MEDS: Lactobacillis Acidophilus 1 CAP PO ×2 (09:40→18:02)
[2023-09-25] MEDS: Calcium Carb/Vitamin D 1 TABLET Tablet PO (09:40)
[2023-09-25] MEDS: Loratadine 10 MG Tablet PO (09:40)
[2023-09-25] MEDS: guaiFENesin 1,200 MG Tablet 1200 MG PO (09:40)
[2023-09-25] MEDS: TICAGRELOR 90 MG TABLET PO ×2 (09:41→20:04)
[2023-09-25 10:00] VITALS: PULSE 76; RESP 16; O2SAT 95
--- NOTE | 2023-09-25 11:18 | CASEMGMT ---
Addendum entered by Huang Villarreal 09/26/23 13:32: Patient completed addition Notice of Medicare Non-Coverage for current [facility] coverage services end on 09/28/2023. Patient unable to discharge due to family being out of town. Patient's son anticipates providing care for patient post discharge. Patient states that her son will be with her in the home for 2-3 days post discharge. Original Note: Social Work SW received notification from patient that patient's son, Luther will be out of town on . Patient requested to discharge on 09/29/2023 when son is in town and able to provide discharge support. SW notified admission coordinator of change in discharge. KAELA Jiang
[2023-09-25 12:57] VITALS: BP 101/73; PULSE 68; RESP 18; TEMP 36.3; O2SAT 94
[2023-09-25 14:12] VITALS: O2SAT 91
[2023-09-25] MEDS: Levothyroxine 112 MCG Tablet PO (20:04)
[2023-09-25] MEDS: traZODone 100 MG Tablet PO (20:04)
[2023-09-25] MEDS: Potassium Chloride Oral Tablet 20 MEQ PO (20:05)
[2023-09-26 05:40] VITALS: BP 127/72; PULSE 76; O2SAT 95
[2023-09-26] MEDS: SILDENAFIL CITRATE 20 MG TABLET 80 MG PO ×3 (05:41→20:08)
[2023-09-26] MEDS: Furosemide 80 MG Tablet PO (05:41)
[2023-09-26] MEDS: Acetaminophen 500 MG Tablet 1000 MG PO ×2 (05:41→20:04)
[2023-09-26 06:46] VITALS: O2SAT 96
[2023-09-26 07:00] VITALS: BMI 25.8
[2023-09-26] MEDS: TREPROSTINIL 64 MCG CART.INHAL INHALATION ×3 (07:05→20:02)
[2023-09-26] MEDS: Albuterol IH (6.7 GM) 1 PUFF INHALER 2 PUFF INHALATION ×3 (07:05→20:02)
--- NOTE | 2023-09-26 08:35 | MDS.RN ---
Information for the MDS was obtained from review of the clinical record, interview of resident, staff, and direct observation of resident?s care.
--- NOTE | 2023-09-26 08:48 | NURSING ---
Discussed pneumonia vaccine with patient, she wants to hold off and discuss with Dr. Gómez at follow-up.
[2023-09-26 08:52] VITALS: BP 136/74; PULSE 68; RESP 16; O2SAT 93
[2023-09-26] MEDS: Lactobacillis Acidophilus 1 CAP PO ×2 (08:53→18:00)
[2023-09-26] MEDS: Umeclidinium Bromide Inhaler 1 PUFF INHALATION (08:53)
[2023-09-26] MEDS: TICAGRELOR 90 MG TABLET PO ×2 (08:54→20:06)
[2023-09-26] MEDS: Multivitamin (Healthy Eyes) Capsule 1 CAP PO ×2 (08:54→20:07)
[2023-09-26] MEDS: Pantoprazole Sodium 20 MG Tablet PO (08:54)
[2023-09-26] MEDS: Calcium Carb/Vitamin D 1 TABLET Tablet PO (08:54)
[2023-09-26] MEDS: Loratadine 10 MG Tablet PO (08:54)
[2023-09-26] MEDS: Cholecalciferol (Vit D3) 125 MCG CAPSULE (5,000 UNITS) PO (08:54)
[2023-09-26] MEDS: dilTIAZem CD 180 MG Capsule PO (08:55)
[2023-09-26] MEDS: Celecoxib 200 MG Capsule PO (08:55)
[2023-09-26] MEDS: guaiFENesin 1,200 MG Tablet 1200 MG PO (08:55)
[2023-09-26] MEDS: Fluticasone/Salmeterol 232-14 Inhaler 1 PUFF INHALATION ×2 (08:57→20:04)
[2023-09-26] MEDS: Potassium Chloride Oral Tablet 20 MEQ 40 MEQ PO (09:01)
[2023-09-26 10:28] VITALS: O2SAT 96
[2023-09-26 10:37] VITALS: O2SAT 97
[2023-09-26 14:43] VITALS: TEMP 36.4
[2023-09-26] MEDS: traZODone 100 MG Tablet PO (20:06)
[2023-09-26] MEDS: Potassium Chloride Oral Tablet 20 MEQ PO (20:07)
[2023-09-26] MEDS: Levothyroxine 112 MCG Tablet PO (20:08)
[2023-09-27] MEDS: Albuterol IH (6.7 GM) 1 PUFF INHALER 2 PUFF INHALATION ×4 (06:09→20:13)
[2023-09-27] MEDS: TREPROSTINIL 64 MCG CART.INHAL INHALATION ×4 (06:09→20:13)
[2023-09-27] MEDS: SILDENAFIL CITRATE 20 MG TABLET 80 MG PO ×3 (06:12→20:16)
[2023-09-27] MEDS: Furosemide 40 MG Tablet PO (06:12)
[2023-09-27] MEDS: Acetaminophen 500 MG Tablet 1000 MG PO ×2 (06:12→20:15)
[2023-09-27 06:32] VITALS: O2SAT 96
[2023-09-27] MEDS: Umeclidinium Bromide Inhaler 1 PUFF INHALATION (08:55)
[2023-09-27] MEDS: Fluticasone/Salmeterol 232-14 Inhaler 1 PUFF INHALATION ×2 (08:55→20:14)
[2023-09-27] MEDS: Potassium Chloride Oral Tablet 20 MEQ 40 MEQ PO (08:57)
[2023-09-27] MEDS: Lactobacillis Acidophilus 1 CAP PO ×2 (08:57→16:24)
[2023-09-27] MEDS: Calcium Carb/Vitamin D 1 TABLET Tablet PO (08:57)
[2023-09-27] MEDS: Multivitamin (Healthy Eyes) Capsule 1 CAP PO ×2 (08:58→20:17)
[2023-09-27] MEDS: Pantoprazole Sodium 20 MG Tablet PO (08:58)
[2023-09-27] MEDS: guaiFENesin 1,200 MG Tablet 1200 MG PO (08:58)
[2023-09-27] MEDS: TICAGRELOR 90 MG TABLET PO ×2 (08:58→20:16)
[2023-09-27] MEDS: Cholecalciferol (Vit D3) 125 MCG CAPSULE (5,000 UNITS) PO (08:59)
[2023-09-27] MEDS: dilTIAZem CD 180 MG Capsule PO (08:59)
[2023-09-27] MEDS: Loratadine 10 MG Tablet PO (08:59)
[2023-09-27] MEDS: Celecoxib 200 MG Capsule PO (08:59)
[2023-09-27 09:03] VITALS: BP 110/48; PULSE 70
[2023-09-27 10:20] VITALS: O2SAT 97
[2023-09-27 10:40] VITALS: PULSE 62; RESP 20; O2SAT 96
--- NOTE | 2023-09-27 11:42 | NURSING ---
PER YENY,SPEECH THERAPY PT WILL HAVE SWALLOW TEST TODAY AT 1330.
--- NOTE | 2023-09-27 13:34 | NURSING ---
PT LEFT FLOOR BY WHEEL CHAIR FOR SWALLOW STUDY AT 1335.
[2023-09-27 13:46] VITALS: BP 101/54; PULSE 68; RESP 20; TEMP 36.7; O2SAT 92
--- NOTE | 2023-09-27 14:02 | NURSING ---
PT RETURNED TO FLOOR BY WHEEL CHAIR AT 1400 AFTER SWALLOW TEST.
--- NOTE | 2023-09-27 14:04 | ST.MBS ---
Modified Barium Swallow Patient Information Study Date: 09/27/23 Study Time: 13:30 Direct Billable Minutes: 80 Total Minutes procedure & reportin Diagnosis: COPD exacerbation J44.1; GERD K21.9 Referring Physician: Seb Khan Chi Reason for Referral: Objectively assess swallow function, assess risk for aspiration, and determine recommendations for least restrictive diet textures and compensatory strategies to improve safety of swallow. 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 The patient presented to [facility] ED 09/09/23 with lower extremity injury. COPD w/ chronic use of 5L O2 via nasal cannula. Tripped over O2 tubing and fell. X-ray showed left pelvis fracture. 09/09/2023 Admit [facility]. Tylenol, Percocet, PT/OT for left pelvic fracture. 09/13/2023 Admit to TCU with debility, here for rehabilitation, strengthening, prior to discharge home alone. Referred for ST consult due to reports of difficulty managing secretions. BSE recommended Regular textures / Thin liquids with ST to follow for dysphagia POC. 09/26/23 During dysphagia session, Pt reports phlegm is characterized as thick, frothy, white which her optician manager attributed to her COPD. Pt. reports having to call EMS 1x (2022) and almost had to call EMS 3x since Dec. d/t feeling like her secretions are covering her trachea and choking her. Pt. reports 1x daughter stated she was turning blue, but she has no recollection of this. She is on 8L of O2 via NC at bL. She had to be suctioned 2x while on the TCU - strong gag reflex, occ makes her vomit. Pt recommended for MBSS tomorrow to objectively assess swallow function. Current Diet Ordered: Regular textures / Thin liquids Mental Status: WNL Respiratory Status: Oxygenating on 4L/M nasal cannula (8L/M via nasal cannula) Penetration-Aspiration Scale Penetration-Aspiration Scale: OBJECTIVE ASSESSMENT OF SWALLOW FUNCTION (QUANTITATIVE ? PER TRIAL): PENETRATION / ASPIRATION SCALE (TRUONG): 1 = does not enter airway 2 = enters airway/above vocal folds/ejected 3 = enters airway/above vocal folds/not ejected 4 = enters airway/contacts vocal folds/ejected 5 = enters airway/contacts vocal folds/not ejected 6 = enters airway/below vocal folds/ejected 7 = enters airway/below vocal folds/not ejected despite effort 8 = enters airway/below vocal folds/no effort VIDEOFLOROSCOPIC SCALE SCORE (TRUONG): Grade I = aspiration of material that has penetrated into the laryngeal vestibule, intact cough reflex Grade II = aspiration < 10 % of the bolus, intact cough reflex Grade III = aspiration of < 10 % of the bolus, reduced cough reflex or aspiration of > 10 % of the bolus, intact cough reflex Grade IV = aspiration of > 10 % of the bolus, reduced cough reflex Penetration-Aspiration Scale Score Thin Liquid via teaspoon: Result: 1= does not enter airway Thin Liquid via teaspoon Trial 2: Result: 1= does not enter airway Thin Liquid via large single sip: cup: Result: 1= does not enter airway [place] Thick Liquid via large single sip: cup: Result: 1= does not enter airway Pudding via teaspoon: Result: 1= does not enter airway Thin Liquid via single sip: straw: Result: 2= enter airway/above vocal folds/ejected 1/2 Cookie: Result: 1= does not enter airway Thin Liquid via sequential sips:straw: Result: 3= enters airways/above vocal folds/not ejected (very trace, reflexive cough in response to laryngeal penetration) Oral Phase Labial Seal: Interlabial escape, no progression to anterior lip Tongue Control During Bolus Hold: Posterior escape of less than half of bolus Bolus Preparation/Mastication: Slow prolonged chewing/mashing with complete recollection Oral Residue: Residue collection on oral structures Pharyngeal Phase Initiation of Pharyngeal Swallow: Bolus head in pyriforms (large sips) Soft Palate Elevation: No bolus between soft palate and pharyngeal wall Laryngeal Elevation: Partial superior movement thyroid cart/partial apprx aryt-epig petiole Anterior Hyoid Excursion: Partial anterior movement Epiglottic Movement: Complete inversion Laryngeal Vestibule Closure at Height of Swallow: Incomplete; narrow column of air/contrast in laryngeal vestibule Pharyngeal Stripping Wave: Present - complete Pharyngoesophageal Segment Opening: Complete distension and complete duration; no obstruction of flow Tongue Base Retraction: Trace column of contrast between tongue base & post. pharyngeal wall Pharyngeal Residue: Trace residue within or on pharyngeal structures Esophageal Phase Esophageal Clearance: Esophageal retention w/ retrograde flow below pharyngoesophageal seg. Diagnosis/Impression Diagnosis: Mild pharyngeal dysphagia R13.13; Mild esophageal dysphagia R13.14 Impression: Oral phase is grossly WNL and age-appropriate. The pharyngeal phase is marked by.. -Mildly decreased airway closure and anterior hyoid excursion with only trace laryngeal penetration of sequential sips of thin liquids with reflexive cough. No aspiration observed; however, it cannot be definitively ruled out due to patient's body habitus. The esophageal phase is primarily marked by... -Retention of pudding in the lower esophagus with retrograde flow below the UES. Liquid wash effectively cleared residues. -Retention of cookie in the mid and lower esophagus. Liquid wash somewhat cleared residues from the esophagus. Of note, small CP-bar present at the level of C4-C5; however, it did not appear to impact bolus clearance through the UES. Recommendations Diet: Regular Textures and Thin Liquids Compensatory Strategies: Small Bites, Small Sips, Slow Rate, Alternate bites/solids and sips/liquids (Take a sip after every 1-2 bites of solids), Sitting upright and Remain sitting upright for 30 minutes after PO intake Supervision: Distant Supervision Recommend Repeat Modified Barium Swallow: No Need for Skilled Speech Therapy Services: Yes Comment: 3X/week X1-2 weeks for pharyngeal strengthening (Eron, CTAR, Effortful), ongoing assessment of diet tolerance, and review of recommended aspiration and reflux aspiration precautions. Recommended Referrals: GI Consult (Please consider GI consult during stay, especially if s/s of reflux given hx of poor secretion management.) Education Completed: 1. Described result of evaluation. and 2. Pt understands evaluation & agrees with goals and treatment plan. Status Active ST Patient: Active Contact Information [facility] Speech Therapy:: Izzy Arthur M.A. CCC-HEAD OF TRANSPORT LOGISTICS? Speech-Language Pathologist?? [facility] [address] [place] [address]? [email or web address]?? [phone]
--- NOTE | 2023-09-27 18:32 | NURSING ---
YENY,SPEECH THERAPY CALLED THIS NURSE PT IS A DISTANT SUPERVISION,REGULAR TEXTURE,THIN LIQUIDS ALTERNATING SMALL BITES AND SIPS. REQUESTING PT HAVE A CONSULT FOR ESOPHAGEAL RETENTION OF FOOD. NOTIFIED,RN AWARE.
[2023-09-27] MEDS: Potassium Chloride Oral Tablet 20 MEQ PO (20:16)
[2023-09-27] MEDS: traZODone 100 MG Tablet PO (20:17)
[2023-09-27] MEDS: Levothyroxine 112 MCG Tablet PO (20:18)
[2023-09-28 05:30] LABS: Absolute Lymphocyte Count 0.73 X10^3/uL (0.83-4.51); Absolute Neutrophil Count 4.9 X10^3/uL (2.0-7.7); Basophil# 0.04 X10^3/uL; Basophil% 0.6 % (0-1); Eosinophil# 0.25 X10^3/uL; Eosinophils% 3.9 % (0-5); Hematocrit 33.2 % (37-47); Hemoglobin 10.4 g/dL (12.0-15.0); Lymphocyte # 0.73 X10^3/ul (0.83-4.51); Lymphocyte % 11.3 % (19-41); Mean Corp Hgb Conc 31.3 g/dL (32-36); Mean Corpuscular Hgb 29.4 pg (27.0-32.0); Mean Corpuscular Volume 93.8 fL (81-99); Mean Platelet Vol. 10.8 fl (6.2-12.0); Monocyte# 0.55 X10^3/uL; Monocyte% 8.5 % (0-10); NRBC Flagged by Analyzer 0 % (0-5); Neutrophil # 4.85 X10^3/uL (2.7-7.7); Neutrophil % 75.1 % (47-70); POSITIVE MORPHOLOGY YES; Platelet Count 274 K/mm3 (150-450); RBC Distribution Width CV 19.2 % (11.6-14.6); RBC Distribution Width SD 66.5 fl (35.1-43.9); Red Blood Count 3.54 M/mm3 (4.2-5.4); White Blood Count 6.5 K/mm3 (4.4-11.0)
[2023-09-28 05:41] LABS: Differential Indicated SCAN CRITERIA MET
[2023-09-28 06:14] LABS: Differential Comment SCANNED
[2023-09-28] MEDS: Albuterol IH (6.7 GM) 1 PUFF INHALER 2 PUFF INHALATION ×3 (06:18→16:48)
[2023-09-28] MEDS: TREPROSTINIL 64 MCG CART.INHAL INHALATION ×3 (06:18→16:48)
[2023-09-28] MEDS: Acetaminophen 500 MG Tablet 1000 MG PO ×2 (06:19→20:29)
[2023-09-28] MEDS: SILDENAFIL CITRATE 20 MG TABLET 80 MG PO ×3 (06:20→20:29)
[2023-09-28] MEDS: Furosemide 80 MG Tablet PO (06:22)
[2023-09-28 06:27] VITALS: BP 124/64; PULSE 74
[2023-09-28 06:29] LABS: Anion Gap 4 (5-15); BUN 24 mg/dL (7-18); BUN/Creat Ratio 38.9 RATIO (10-20); Calcium,Total 8.9 mg/dL (8.5-10.1); Chloride 101 mmol/L (98-107); Creatinine, Serum 0.62 mg/dL (0.55-1.02); EST Glomerular Filtration Rate 97 mL/min (>60); Est Glom Filt Rate - Afr Amer 117 mL/min (>60); Glucose 96 mg/dL (74-106); Potassium 4.1 mmol/L (3.5-5.1); Sodium Level 135 mmol/L (136-145)
--- NOTE | 2023-09-28 06:38 | NURSING ---
[facility] NOTIFIED OF CONSULT FOR PT.
[2023-09-28] MEDS: Umeclidinium Bromide Inhaler 1 PUFF INHALATION (09:03)
[2023-09-28] MEDS: Fluticasone/Salmeterol 232-14 Inhaler 1 PUFF INHALATION ×2 (09:04→20:31)
[2023-09-28] MEDS: guaiFENesin 1,200 MG Tablet 1200 MG PO (09:05)
[2023-09-28] MEDS: Potassium Chloride Oral Tablet 20 MEQ 40 MEQ PO (09:05)
[2023-09-28] MEDS: Multivitamin (Healthy Eyes) Capsule 1 CAP PO ×2 (09:07→20:30)
[2023-09-28] MEDS: dilTIAZem CD 180 MG Capsule PO (09:07)
[2023-09-28] MEDS: TICAGRELOR 90 MG TABLET PO ×2 (09:07→20:30)
[2023-09-28] MEDS: Loratadine 10 MG Tablet PO (09:07)
[2023-09-28] MEDS: Calcium Carb/Vitamin D 1 TABLET Tablet PO (09:07)
[2023-09-28] MEDS: Pantoprazole Sodium 20 MG Tablet PO (09:08)
[2023-09-28] MEDS: Cholecalciferol (Vit D3) 125 MCG CAPSULE (5,000 UNITS) PO (09:08)
[2023-09-28] MEDS: Celecoxib 200 MG Capsule PO (09:08)
[2023-09-28] MEDS: Lactobacillis Acidophilus 1 CAP PO ×2 (09:08→16:49)
[2023-09-28 09:17] VITALS: BP 127/62; PULSE 69
--- NOTE | 2023-09-28 09:17 | NURSING ---
FOUND PT WALKING OUT OF BATHROOM ON OWN. EDUCATED PT ON CALLING FOR HELP AND NOT GETTING UP ON OWN. PT STATED I KNOW,BUT TOMMY GOING HOME TOMORROW. RN AWARE
--- NOTE | 2023-09-28 11:26 | CASEMGMT ---
Social Work SW met with patient at bedside to complete MDS. Patient BIM () and PhQ-2 () Patient informed SW that she felt down and lost interest in doing things yesterday, 09/27/2023 after receiving a call from her family member who informed her that she has stage 3 colon cancer. The patient informed SW that she was asked to provide support, but she was unsure what to say to support the family member. Patient informed SW that she is pretty optimistic about life, so she does not feel down long. Patient informed SW that she plans to follow up with family to provide support. SW reviewed discharge plans with patient. Patient will obtain home health care with [facility] PT/OT/SN ; [facility] delivered BSC to home and patient will follow up outpatient with GI regarding concerns for reflux and secretions. Patient denies any concerns at this time. KAELA Jiang
--- NOTE | 2023-09-28 13:14 | NURSING ---
IN TO SEE PT. NNO, PT STATED SHE AGREED WITH TO FOLLOW UP WITH HIM IF SHE NEEDED TO.
[2023-09-28 13:39] VITALS: BP 101/54; PULSE 61; RESP 18; TEMP 36.8; O2SAT 92
[2023-09-28] MEDS: Polyethylene Glycol 3350 17 GM PACKET PO (14:22)
--- NOTE | 2023-09-28 14:50 | MDS.RN ---
Pain interview complete for MDS
--- NOTE | 2023-09-28 16:51 | CON.PCM.GI_ITS ---
HPI Consult Data Date of Consult: 09/28/23 HPI Narrative Reason for Consultation: Esophageal dysphagia HPI Narrative: AYAD BA, is a Patient is an 88-year-old female who presented to [facility] ED on 09/09/2023 with left sided pelvic pain after a fall at home. She was diagnosed with left superior and inferior pubic rami fractures secondary to mechanical fall with acute on chronic debility, history of osteoarthritis s/p bilateral total knee replacement She lives alone in one-story home with basement stair lift; was independent with ADLs prior to this fall. Continue Tylenol for pain management. Discharged to [facility] in stable condition on 09/12. She also has a past medical history of COPD with chronic hypoxic respiratory failure on 5 L nasal cannula at baseline. She was referred for ST consult due to reports of difficulty managing secretions. BSE recommended Regular textures / Thin liquids with ST to follow for dysphagia POC. 09/26/23 During dysphagia session, Pt reports phlegm is characterized as thick, frothy, white which her pit shovel operator attributed to her COPD. Pt. reports having to call EMS 1x (2022) and almost had to call EMS 3x since Dec. d/t feeling like her secretions are covering her trachea and choking her. Pt. reports 1x daughter stated she was turning blue, but she has no recollection of this. She is on 8L of O2 via NC at bL. She had to be suctioned 2x while on the TCU - strong gag reflex, occ makes her vomit. She was diagnosed with mild pharyngeal dysphagia and mild esophageal dysphagia. I was asked to see her because of esophageal dysphagia. 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 She had retention of pudding and a lower esophagus with retrograde flow below the LES. She was able to swallow liquids and it did clear. She had retention of cookie in the mid to lower esophagus and liquid wash did appear to clear most of it. I [facility] Medical History (Updated 09/28/23 @ 16:[address] Macdonald Friend, DO) COPD (chronic obstructive pulmonary disease) SANCHEZ (dyspnea on exertion) Hypoxia Dissecting aneurysm of thoracic aorta, Juan type A (02/28/22) Atherosclerosis of coronary artery without angina pectoris History of lung cancer Dyspnea Tubulovillous adenoma of colon Non-rheumatic aortic stenosis Secondary pulmonary arterial hypertension CRF (chronic renal failure) Osteoarthritis Hypothyroidism COPD (chronic obstructive pulmonary disease) Hyperlipidemia Macular degeneration Essential hypertension Occlusion and stenosis of bilateral carotid arteries PVD (peripheral vascular disease) GERD (gastroesophageal reflux disease) Personal history of transient ischemic attack (TIA), and cerebral infarction without residual deficits Pneumonia Seasonal allergies Home Medications ?Medication ?Instructions ?Recorded ?Last Taken ?Type omeprazole 20 mg capsule,delayed 20 mg PO DAILY GERD 06/26/18 09/13/23 09:25 History release umeclidinium 62.5 mcg/actuation 1 inh inhalation DAILY COPD 06/26/18 Unknown History blister powder for inhalation (Incruse Ellipta) vit C 250 mg-vit E 90 mg-zinc 40 1 tab PO BID SUPPLEMENT 06/26/18 09/13/23 09:25 History mg-copper 1 [id number] capsule (PreserVision AREDS-2) levothyroxine 112 mcg tablet 112 mcg PO QHS THYROID 06/27/18 09/12/23 History cetirizine 10 mg capsule 10 mg PO DAILY allergies 09/20/19 09/13/23 09:25 History albuterol sulfate 90 mcg/actuation 2 puff inhalation 4X/DAY PRN COPD 12/26/19 Unknown History aerosol inhaler cholecalciferol (vitamin D3) 125 125 mcg PO MOTUWETHFR supplement 08/24/20 09/13/23 09:25 History mcg (5,000 unit) capsule ticagrelor 90 mg tablet (Brilinta) 90 mg PO BID blood press 03/08/22 09/13/23 09:25 History calcium carbonate 600 mg-vitamin 1 cap PO QAM supplement 06/07/22 09/13/23 09:25 History D3 5 mcg (200 unit) capsule (Calcium 600 + D(3)) docusate sodium 100 mg capsule 100 mg PO QHS stool softener 06/07/22 09/10/23 History fluticasone furoate 200 1 inh inhalation DAILY copd 06/07/22 Unknown History mcg-vilanterol 25 mcg/dose inhalation powder (Breo Ellipta) guaifenesin 600 mg tablet, 1,200 mg PO DAILY cough 06/07/22 09/13/23 09:25 History extended release 12 hr (Mucinex) lactobacillus combination no.9 4 4,000 mmu cells PO BID colon health 06/07/22 09/13/23 09:25 History billion cell capsule (Adult 50 Plus Probiotic) treprostinil 64 mcg cartridge with 64 mcg inhalation Q6H breathing 01/07/23 09/13/23 12:50 History inhaler (Tyvaso DPI) celecoxib 200 mg capsule (Celebrex) 200 mg PO DAILY Pain 04/28/23 09/13/23 09:25 History trazodone 50 mg tablet 100 mg PO QHS SLEEP 04/28/23 09/12/23 History diltiazem HCl 180 mg capsule,24 180 mg PO DAILY heart #30 caps 07/07/23 09/13/23 09:25 Rx hr,extended release furosemide 40 mg tablet 40 mg PO QODAY Heart 08/28/23 09/13/23 09:25 History potassium chloride 20 mEq 40 meq PO DAILY Supplement 08/28/23 09/13/23 09:25 History tablet,extended release furosemide 80 mg tablet 80 mg PO QODAY Heart 09/09/23 09/12/23 10:25 History levothyroxine 112 mcg tablet 224 mcg PO .qosu Thyroid 09/09/23 08/20/23 History (Euthyrox) potassium chloride 20 mEq 20 meq PO .qohs Supplement 09/09/23 09/12/23 History tablet,extended release (K-Tab) potassium chloride 20 mEq 20 meq PO QHS Supplement 09/09/23 09/12/23 History tablet,extended release (K-Tab) sildenafil (pulm.hypertension) 20 80 mg PO TID blood pressure 09/09/23 09/13/23 12:50 History mg tablet acetaminophen 500 mg tablet 1,000 mg (2 x 500 mg) PO 0600,2130 09/22/23 Unknown Rx #0 tabs acetaminophen 500 mg tablet 1,000 mg (2 x 500 mg) PO Q6H PRN 09/22/23 Unknown Rx PRN Pain Score 1-10 #0 tabs Allergy/AdvReac Type Severity Reaction Status Date / Time morphine Allergy UNCONTROLLED Verified 09/09/23 17:46 BEHAVIOR DANISH Inhibitors AdvReac Intermediate cough Verified 09/09/23 17:46 ipratropium AdvReac Intermediate PASSING OUT Verified 09/09/23 17:46 Family History Mother Liver failure Brother Myasthenia gravis Pacemaker Sister CAD (coronary artery disease) CABG x 4 CVA (cerebral vascular accident) Father Colon cancer Surgical History (Updated 09/21/23 @ 00:01 by Background Evelyn) S/P TAVR (transcatheter aortic valve replacement) (04/04/22) History of right heart catheterization (RHC) (07/22/22) History of transcatheter aortic valve replacement (TAVR) (04/04/22) History of coronary artery stent placement (02/28/22) History of right and left heart catheterization (02/08/19) History of colectomy (09/2018) History of colonoscopy (08/09/18) History of lobectomy of lung History of tubal ligation History of tonsillectomy History of cholecystectomy (2009) History of cataract extraction History of total left knee replacement lung cancer 2012 rll lobectemy Status post total right knee replacement Social History household members: none Smoking Status: Former smoker how long ago did patient quit smokin years ago alcohol intake: current alcohol intake frequency: holidays/special occasions only Alcohol type: wine caffeine: Yes Type: coffee Number of servings: 2 ROS Constitutional Constitutional: Reports fatigue and weakness; Denies chills, fever(s) or weight gain ENT HEENT: Denies headache(s), nasal congestion or nasal discharge Cardiovascular Cardiovascular: Denies chest pain or palpitations Respiratory/Chest Respiratory/Chest: Reports cough, dyspnea on exertion and shortness of breath with exertion; Denies excessive phlegm production Gastrointestinal Gastrointestinal: Denies abdominal pain, nausea or vomiting Genitourinary Genitourinary: Denies dysuria Musculoskeletal Musculoskeletal: Denies joint pain or joint swelling Integumentary Integumentary: Denies rash or wounds Neurologic Neurologic: Denies focal weakness, numbness or tingling Psychiatric Psychiatric: Denies anxiety, auditory hallucinations, depression, homicidal ideation or suicidal ideation Physical Exam Const alert General Appearance: cooperative HEENT normocephalic Eyes PERRL and EOMs intact bilaterally Neck supple, no JVD and no carotid bruits Resp normal respiratory effort, normal air movement and clear to auscultation bilaterally Cardio regular rate and regular rhythm GI normal to inspection, nondistended, normoactive bowel sounds, non-tender and non-distended Extremity normal capillary refill General Extremity: Negative for edema Skin no rashes or lesions noted General Skin Exam: no breakdown Psych affect normal Appearance: appropriate Lab / Micro Data 09/28/23 05:11 09/28/23 05:11 Labs: Laboratory Results - last 24 hr 09/28/23 05:11: WBC 6.5, RBC 3.54 L, Hgb 10.4 L, Hct 33.2 L, MCV 93.8, MCH 29.4, MCHC 31.3 L, RDW Std Deviation 66.5 H, RDW Coeff of Fernanda 19.2 H, Plt Count 274, MPV 10.8, Immature Gran % (Auto) 0.600, Neut % (Auto) 75.1 H, Lymph % (Auto) 11.3 L, [place] % (Auto) 8.5, Eos % (Auto) 3.9, Baso % (Auto) 0.6, Absolute Neuts (auto) 4.9, Absolute Lymphs (auto) 0.73 L, Nucleated RBC % 0, Differential Comment SCANNED, Sodium 135 L, Potassium 4.1, Chloride 101, Carbon Dioxide 30.0, Anion Gap 4 L, BUN 24 H, Creatinine 0.62, Estim Creat Clear Calc 38.60, Est GFR (MDRD) Af Amer 117, Est GFR (MDRD) Non-Af 97, BUN/Creatinine Ratio 38.9 H, Glucose 96, Calcium 8.9 Assessment & Plan Assessment/Plan (1) Dysphagia: PLAN: 88-year-old with end-stage COPD on constant oxygen who is status post left ramus fracture in TCU and being discharged on 09/29/2023 back to home. She has been having intermittent choking episodes and underwent video swallowing test and was discovered to have oropharyngeal and esophageal dysphagia. I talk with her regarding her medication regimen and she does take omeprazole on a daily basis and she feels like this helps a lot better than the pantoprazole that she is on currently in the hospital. She never had an upper endoscopy. I offered her an upper endoscopy to see if she has motility dysfunction that could be treated endoscopically versus a mechanical obstruction diet could also be treated endoscopically. She declined wanting any procedures at this time. I told her she can follow-up as an outpatient so we can get this resolved totally. For now continue on PPI therapy. Keep patient in 90 degrees when eating at all times. Patient is aware of the risk and benefits of not undergoing endoscopic evaluation at this time. Charges/Coding Visit Charges Inpatient E&M: 70906 [facility] Init L2
[2023-09-28] MEDS: Levothyroxine 112 MCG Tablet PO (20:29)
[2023-09-28] MEDS: traZODone 100 MG Tablet PO (20:30)
[2023-09-28] MEDS: Potassium Chloride Oral Tablet 20 MEQ PO (20:31)
[2023-09-28 21:03] VITALS: PULSE 82; RESP 16; O2SAT 91
[2023-09-29] MEDS: Acetaminophen 500 MG Tablet 1000 MG PO (06:21)
[2023-09-29] MEDS: SILDENAFIL CITRATE 20 MG TABLET 80 MG PO (06:21)
[2023-09-29] MEDS: Furosemide 40 MG Tablet PO (06:21)
[2023-09-29] MEDS: Calcium Carb/Vitamin D 1 TABLET Tablet PO (08:29)
[2023-09-29] MEDS: Lactobacillis Acidophilus 1 CAP PO (08:29)
[2023-09-29] MEDS: Potassium Chloride Oral Tablet 20 MEQ 40 MEQ PO (08:29)
[2023-09-29] MEDS: dilTIAZem CD 180 MG Capsule PO (08:29)
[2023-09-29] MEDS: Loratadine 10 MG Tablet PO (08:29)
[2023-09-29] MEDS: Celecoxib 200 MG Capsule PO (08:29)
[2023-09-29] MEDS: Umeclidinium Bromide Inhaler 1 PUFF INHALATION (08:29)
[2023-09-29] MEDS: Fluticasone/Salmeterol 232-14 Inhaler 1 PUFF INHALATION (08:29)
[2023-09-29] MEDS: Multivitamin (Healthy Eyes) Capsule 1 CAP PO (08:29)
[2023-09-29] MEDS: TICAGRELOR 90 MG TABLET PO (08:29)
[2023-09-29] MEDS: Pantoprazole Sodium 20 MG Tablet PO (08:30)
[2023-09-29] MEDS: Cholecalciferol (Vit D3) 125 MCG CAPSULE (5,000 UNITS) PO (08:30)
[2023-09-29] MEDS: guaiFENesin 1,200 MG Tablet 1200 MG PO (08:30)
[2023-09-29 10:39] VITALS: BP 112/58; PULSE 69; RESP 18; TEMP 36.1; O2SAT 98
== END 2023-09-29 11:00 | disposition home health service (06) | DRG 560 ==
PROVIDERS: Admitting Provider Family Medicine Geriatric Medicine; PCP Internal Medicine; Visit Provider Family Medicine Geriatric Medicine
DX: S32.9XXD Fracture of unspecified parts of lumbosacral spine and pelvis, subsequent encounter for fracture with routine healing (principal); J96.11 Chronic respiratory failure with hypoxia; I27.21 Secondary pulmonary arterial hypertension; J44.9 Chronic obstructive pulmonary disease, unspecified; N18.9 Chronic kidney disease, unspecified; E03.9 Hypothyroidism, unspecified; I12.9 Hypertensive chronic kidney disease with stage 1 through stage 4 chronic kidney disease, or unspecified chronic kidney disease; I25.10 Atherosclerotic heart disease of native coronary artery without angina pectoris; M19.90 Unspecified osteoarthritis, unspecified site; E55.9 Vitamin D deficiency, unspecified; H35.30 Unspecified macular degeneration; J30.9 Allergic rhinitis, unspecified; K21.9 Gastro-esophageal reflux disease without esophagitis; E78.5 Hyperlipidemia, unspecified; W19.XXXD Unspecified fall, subsequent encounter; E87.6 Hypokalemia; Z99.81 Dependence on supplemental oxygen; Z87.891 Personal history of nicotine dependence; G47.00 Insomnia, unspecified; Z79.52 Long term (current) use of systemic steroids; Z79.51 Long term (current) use of inhaled steroids; Z95.5 Presence of coronary angioplasty implant and graft; Z79.899 Other long term (current) drug therapy; Z79.890 Hormone replacement therapy; R13.12 Dysphagia, oropharyngeal phase; Z23 Encounter for immunization
CPT/HCPCS: 36415; 74230; 80048; 85014; 85018; 85025; 87811; 90480; 92526; 92611; 97110; 97116; 97162; 97166; 97530; 97535; 91322; A4216